=== PATIENT | male | born 1950 | race Caucasian/White ===

== ENCOUNTER 2016-07-28 18:59 | Inpatient (IN) | payer OTHER ==
[~2016-07-28] VITALS: Ht 167.6 cm; Wt 68.7 kg
[2016-07-28 20:26] LABS: BASO # 0.1 x10^3/uL (0.0-0.2); BASO % 0 % (0-3); EOS % 0 % (0-3); HEMATOCRIT 42.8 % (39.0-53.0); HEMOGLOBIN 13.6 g/dL (13.0-17.5); LYMPH # 0.7 x10^3/uL (1.0-4.8); LYMPH % 3 % (24-48); MEAN CORPUSCULAR HEMOGLOBIN 28 pg (25-35); MEAN CORPUSCULAR HGB CONC 32 g/dL (31-37); MEAN CORPUSCULAR VOLUME 88 fL (79-100); MONO % 10 % (0-9); NEUT % 87 % (31-73); PLATELET COUNT 134 x10^3/uL (140-400); RED BLOOD COUNT 4.84 x10^6/uL (4.30-5.70); RED CELL DISTRIBUTION WIDTH 15.1 % (11.5-14.5); WHITE BLOOD COUNT 21.5 x10^3/uL (4.0-11.0)
[2016-07-28 20:29] LABS: BILIRUBIN,URINE SMALL (NEG); GLUCOSE,URINE >=1000 mg/dL (NEG); NITRITE,URINE NEGATIVE (NEG); PROTEIN,URINE 30 mg/dL (NEG-TRACE); UROBILINOGEN,URINE 0.2 mg/dL (0.2 mg/dL)
[2016-07-28 20:35] LABS: BARBITURATES NEG (NEG); BENZODIAZEPINES NEG (NEG); CANNABINOIDS NEG (NEG); COCAINE NEG (NEG); METHADONE NEG (NEG); OPIATES POS (NEG); PHENCYCLIDINE NEG (NEG)
[2016-07-28 20:36] LABS: ETHANOL, URINE NEG (NEG)
[2016-07-28 20:40] LABS: BACTERIA,URINE 0 /HPF (0-FEW); RBC,URINE OCC /HPF (0-2); SQUAMOUS EPITHELIAL CELL,UR FEW /LPF; WBC,URINE OCC /HPF (0-4)
[2016-07-28 20:53] LABS: HYPOCHROMIA SLIGHT; OVALOCYTES OCC; PLT ESTIMATE DECREASED (ADEQUATE); POLYCHROMASIA SLIGHT
[2016-07-28] MEDS ORDERED: IV NORMAL SALINE 1000ML BAG 1,000 ML IV ONE (21:30)
[2016-07-28] MEDS ORDERED: NALOXONE 0.4 MG/ML VIAL. IV ONE (21:30)
[2016-07-28 21:47] LABS: CALCIUM 10.1 mg/dL (8.5-10.1); CREATININE 1.5 mg/dL (0.7-1.3); GFR 46.7; POTASSIUM 4.6 mmol/L (3.5-5.1)
--- NOTE | 2016-07-28 21:54 | PHYS DOC ---
Past Medical History Past Medical History: CAD, Diabetes-Type I, High Cholesterol, Heart Disease, Hypertension, Renal Disease Past Surgical History: Coronary Bypass Surgery Alcohol Use: None Drug Use: None Adult General Chief Complaint Chief Complaint: ALTERED MENTAL STATUS HPI HPI 77 yo male comes in acutely altered and unable to answer basic questions for the last several hours per his . Patient is awake and can follow basic commands. He does not appear in any acute distress. His pupils are pinpoint. He is afebrile but not able to provide any specific history. Review of Systems Review of Systems 10 point review of systems is unable to be obtained secondary to the patient's mental status Current Medications Current Medications Current Medications Medications (Trade) Dose Ordered Sig/Moses Start Time Stop Time Status Last Admin Dose Admin Naloxone HCl 0.4 mg 0.4 mg 1X ONCE 07/28/16 21:30 07/28/16 21:31 DC 07/28/16 21:30 0.4 MG Sodium Chloride (Iv Sodium Chloride 0.9% 1000ml Bag) 1,000 ml @ 1,000 mls/hr 1X ONCE 07/28/16 21:30 07/28/16 22:29 DC 07/28/16 21:30 1,000 MLS/HR Allergies Allergies Allergies Coded Allergies Type Severity Reaction Last Updated Verified No Known Drug Allergies 09/08/13 No Physical Exam Physical Exam Constitutional: Cachectic, no acute distress, . [] HENT: Normocephalic, atraumatic, bilateral external ears normal, oropharynx moist, no oral exudates, nose normal. [] Eyes: Pupils reactive and pinpoint, EOMI, conjunctiva normal, no discharge. [] Neck: Normal range of motion, no tenderness, supple, no stridor. [] Cardiovascular:Heart rate regular rhythm, no murmur [] Lungs & Thorax: Bilateral breath sounds clear to auscultation [] Abdomen: Bowel sounds normal, soft, no tenderness, no masses, no pulsatile masses. [] Skin: Warm, dry, no erythema, no rash. [] Back: No tenderness, no CVA tenderness. [] Extremities: No tenderness, no cyanosis, no clubbing, ROM intact, no edema. [] Neurologic: Normal motor function, normal sensory function, no focal deficits noted, GCS 13. [] Psychologic: Affect normal, judgement normal, mood normal. [] Current Patient Data Vital Signs Vital Signs Date Time Temp Pulse Resp B/P Pulse Ox O2 Delivery O2 Flow Rate FiO2 07/28/16 19:20 97.5 96 24 130/72 92 Room Air 97.5 Lab Values Laboratory Tests Test 07/28/16 19:30 07/28/16 21:24 White Blood Count 21.5x10^3/uL (4.0-11.0) H Red Blood Count 4.84x10^6/uL (4.30-5.70) Hemoglobin 13.6g/dL (13.0-17.5) Hematocrit 42.8% (39.0-53.0) Mean Corpuscular Volume 88fL (79-100) Mean Corpuscular Hemoglobin 28pg (25-35) Mean Corpuscular Hemoglobin Concent 32g/dL (31-37) Red Cell Distribution Width 15.1% (11.5-14.5) H Platelet Count 134x10^3/uL (140-400) L Neutrophils (%) (Auto) 87% (31-73) H Lymphocytes (%) (Auto) 3% (24-48) L Monocytes (%) (Auto) 10% (0-9) H Eosinophils (%) (Auto) 0% (0-3) Basophils (%) (Auto) 0% (0-3) Neutrophils # (Auto) 18.7x10^3uL (1.8-7.7) H Lymphocytes # (Auto) 0.7x10^3/uL (1.0-4.8) L Monocytes # (Auto) 2.1x10^3/uL (0.0-1.1) H Eosinophils # (Auto) 0.0x10^3/uL (0.0-0.7) Basophils # (Auto) 0.1x10^3/uL (0.0-0.2) Segmented Neutrophils % 88% (35-66) H Lymphocytes % 1% (24-48) L Monocytes % 11% (0-10) H Platelet Estimate Decreased (ADEQUATE) Giant Platelets Occ Polychromasia Slight Hypochromasia Slight Ovalocytes Occ Urine Collection Type Unknown Urine Color Yellow Urine Clarity Clear Urine pH 6.0 Urine Specific [place] >=1.030 Urine Protein 30mg/dL (NEG-TRACE) Urine Glucose (UA) >=1000mg/dL (NEG) Urine Ketones (Stick) 15mg/dL (NEG) Urine Blood Small (NEG) Urine Nitrite Negative (NEG) Urine Bilirubin Small (NEG) Urine Urobilinogen Dipstick 0.2mg/dL (0.2 mg/dL) Urine Leukocyte Esterase Negative (NEG) Urine RBC Occ/HPF (0-2) Urine WBC Occ/HPF (0-4) Urine Squamous Epithelial Cells Few/LPF Urine Bacteria 0/HPF (0-FEW) Urine Hyaline Casts Many/HPF Sodium Level 138mmol/L (136-145) Potassium Level 4.6mmol/L (3.5-5.1) Chloride Level 99mmol/L (98-107) Carbon Dioxide Level 25mmol/L (21-32) Anion Gap 14 (6-14) Blood Urea Nitrogen 41mg/dL (8-26) H Creatinine 1.5mg/dL (0.7-1.3) H Estimated GFR (Cockcroft-Gault) 46.7 BUN/Creatinine Ratio 27 (6-20) H Glucose Level 455mg/dL (70-99) H Calcium Level 10.1mg/dL (8.5-10.1) Total Bilirubin 1.0mg/dL (0.2-1.0) Aspartate Amino Transferase (AST) 1157U/L (15-37) H Alanine Aminotransferase (ALT) 2219U/L (16-63) H Alkaline Phosphatase 296U/L (46-116) H Troponin I Quantitative 1.239ng/mL (0.000-0.055) Total Protein 7.9g/dL (6.4-8.2) Albumin 2.4g/dL (3.4-5.0) L Albumin/Globulin Ratio 0.4 (1.0-1.7) L Urine Opiates Screen Pos (NEG) Urine Methadone Screen Neg (NEG) Urine Barbiturates Neg (NEG) Urine Phencyclidine Screen Neg (NEG) Urine Amphetamine/Methamphetamine Neg (NEG) Urine Benzodiazepines Screen Neg (NEG) Urine Cocaine Screen Neg (NEG) Urine Cannabinoids Screen Neg (NEG) Urine Ethyl Alcohol Neg (NEG) Lactic Acid Level 1.9mmol/L (0.4-2.0) Ammonia 11mcmol/L (11-34) Lipase 76U/L (73-393) Laboratory Tests 07/28/16 19:30 Laboratory Tests 07/28/16 19:30 EKG EKG EKG is internal by me does show some ST abnormalities in the high lateral leads V3 through V6 as well as 23 and aVF. This EKG does not meet STEMI criteria. Radiology/Procedures Radiology/Procedures CT the head without contrast demonstrated no acute intracranial process. CT of the abdomen and pelvis without contrast demonstrated the followin. No acute intra-abdominal or pelvic process seen on this noncontrast exam. 2. Wedge-shaped area of low attenuation suggested in the right lobe of the liver, incompletely evaluated although may represent a previous area of infarct. 3. Areas of low attenuation throughout the spleen, incompletely characterized, could represent areas of previous infarct, less likely cysts. 4. Diffuse atherosclerotic calcification of the abdominal aorta and its main branches. Course & Med Decision Making Course & Med Decision Making Pertinent Labs and Imaging studies reviewed. (See chart for details) This 66-year-old male presents with acute altered mental status has laboratory workup that is concerning for NSTEMI with a troponin of 1.2 as well as externally elevated liver function with a AST/ALT in the thousands. Lipase and ammonia were negative. His renal function reveals mild renal insufficiency consistent with dehydration. Patient was started on heparin protocol as his EKG does also shows some mild signs of ischemia with the elevated troponin level. I obtained a CT of his abdomen and pelvis as well which showed some wedge-shaped infarcts appeared nonacute in the liver. Doses of IV Rocephin and IV flagyl were also given as he has a elevated white count with his liver function abnormalities. His urinalysis and chest x-ray however appeared unremarkable. His elevated blood glucose trended down with fluids. He did not have an elevated bicarbonate and does not appear to be in DKA. He'll be admitted to the ICU for his continued laboratory abnormalities and altered mental status. His room air saturations are normal and he is in no acute respiratory distress and responds to painful stimulus and can follow basic commands so there is no indication at this time that he requires definitive airway placement. Approximately 30 minutes of critical care time were used on this patient in consultation with specialists. Dragon Disclaimer Dragon Disclaimer This electronic medical record was generated, in whole or in part, using a voice recognition dictation system. Critical Care Time Critical care time was 30 minutes exclusive of procedures. Departure Departure Impression: Primary Impression: Dehydration Additional Impressions: NSTEMI (non-ST elevated myocardial infarction) Altered mental status Disposition: 09 ADMITTED INPATIENT Admitting Physician: Rey Lind Condition: STABLE Referrals: UNKNOWN PCP NAME (PCP) Problem Qualifiers MARK BETH DO Jul 28, 2016 21:54
[2016-07-28] MEDS ORDERED: HEPARIN for IV BOLUS 10,000 UNIT/10 ML VIAL. IV PRN (22:00)
[2016-07-28] MEDS ORDERED: CEFTRIAXONE 1GM IVPB FOR OMNI 50 ML IV ONE (22:00)
[2016-07-28 22:01] LABS: ALBUMIN 2.4 g/dL (3.4-5.0); ALBUMIN/GLOBULIN RATIO 0.4 (1.0-1.7); TOTAL PROTEIN 7.9 g/dL (6.4-8.2)
--- NOTE | 2016-07-28 22:11 | RAD ---
INDICATION: Altered mental status. COMPARISON: None TECHNIQUE: Axial, noncontrast CT images obtained through the head. One or more of the following individualized dose reduction techniques were utilized for this examination: 1. Automated exposure control; 2. Adjustment of the mA and/or kV according to patient size; 3. Use of iterative reconstruction technique. FINDINGS: No acute intracranial process is identified, specifically no acute blood products, midline shift, mass effect or extra-axial fluid collections. Ventricles and sulci appear appropriate for patient's age. Basilar cisterns are maintained. The visualized paranasal sinuses are clear. Mastoid air cells are clear. No calvarial fracture is present. Overlying scalp is intact. IMPRESSION: No acute intracranial process. Electronically signed by: Ana Cristina Maldonado (Jul 28, 2016 22:09:44)
[2016-07-28] MEDS ORDERED: ONDANSETRON PF 4 MG/2 ML VIAL. IV PRN (22:15)
[2016-07-28] MEDS: METRONIDAZOLE 500mg PREMIX 100 ML IV SCH (23:02)
[2016-07-28] MEDS: IV NORMAL SALINE 1000ML BAG 1,000 ML IV SCH (23:11)
--- NOTE | 2016-07-28 23:16 | RAD ---
INDICATION: 66-year-old male with generalized abdominal pain. COMPARISON: None TECHNIQUE: Axial CT images obtained through the abdomen and pelvis without the use of intravenous contrast. Coronal and sagittal reformats are provided. One or more of the following individualized dose reduction techniques were utilized for this examination: 1. Automated exposure control; 2. Adjustment of the mA and/or kV according to patient size; 3. Use of iterative reconstruction technique. FINDINGS: Visualized lung bases appear clear. Detailed evaluation of intra-abdominal and pelvic organs and vascular structures is limited secondary to lack of IV contrast. There is suggestion of a wedge-shaped area of low attenuation involving the right lobe of the liver. Otherwise, the liver demonstrates normal contour. There are areas of low attenuation present throughout the spleen. The gallbladder, pancreas, adrenal glands and bilateral kidneys demonstrate no focal abnormality. The GI tract demonstrates no dilated bowel loops to suggest obstruction. A 1.6 cm calcification is present within the urinary bladder just superior to the left UVJ, well-marginated. No hydronephrosis or hydroureter ureter present. Prostatic calcifications are present. No intra-abdominal or pelvic free fluid, free air or significant lymphadenopathy is seen. The aorta is normal in caliber, with diffuse atherosclerotic calcification present. Visualized osseous structures and overlying soft tissues demonstrate no acute or suspicious finding. Degenerative changes are present throughout the visualized spine. IMPRESSION: 1. No acute intra-abdominal or pelvic process seen on this noncontrast exam. 2. Wedge-shaped area of low attenuation suggested in the right lobe of the liver, incompletely evaluated although may represent a previous area of infarct. 3. Areas of low attenuation throughout the spleen, incompletely characterized, could represent areas of previous infarct, less likely cysts. 4. Diffuse atherosclerotic calcification of the abdominal aorta and its main branches. Electronically signed by: Ana Cristina Maldonado (Jul 28, 2016 23:15:27)
[2016-07-28] MEDS: HEPARIN 25,000UTS/500ML PREMIX 500 ML IV PRN (23:18)
--- NOTE | 2016-07-28 23:48 | ACF ---
Admission Forms Criteria MYOCARDIAL INFARCTION Clinical Indications for Admission to Inpatient Care (Place 'X' for any and all applicable criteria): Admission is indicated for ANY ONE of the following (1)(2)(3)(4): [X]I. Acute IA [ ]II. Contraindications and/or Inappropriate clinical situations for Observational Care in patients with Myocardial Infarction, when ANY ONE of the following is required: [ ]a) Patient with High risk of cardiac embolism (e.g, patients with previous cardiac embolism, LVEF < 40%, age >75 and patients with prosthetic valve) 18 [ ]b) Patient with Moderate risk including DM patient, CAD and patient aged 65-75 18 [ ]c) Patient with any change in cardiac biomarker especially troponin should be managed as high risk in an inpatient setting 19 [ ]d) Physician judgement irrespective of ECG and other diagnostic findings 20 [ ]III.General contraindications and/or Inappropriate clinical situations for Observational Care in patients with Myocardial Infarction, when ANY ONE of the following is required: [ ]a) Prediction of prolongation of LOS based on ANY ONE of the following may be considered as a contraindication for observational care 2, 3, 4, 5, 6, 7, 8, 9, 10, 11 [ ]i) Age > 65 yrs. [ ]ii) Patient arriving by ambulance [ ]iii) Patient with high acuity [ ]iv) Patient requiring vital sign monitoring [ ]v) Patient on IV medication [ ]b) Systolic blood pressures 180mmHg 3,12 [ ]c) Patient with altered mental status including delirium and other alteration of consciousness, (3) [ ]d) Patient whose discharge disposition will be to a nursing home home or rehabilitation home should not be managed in Emergency Department Observation Unit. CMS rule requires 3 days hospital stay before such placement. 3,13 [ ]e) Patient with failure to thrive due to broad array of etiologies 3 ,16,17 [ ]f) Inability to ambulate 3,14 Extended stay beyond goal length of stay may be needed for (1)(18)(20)(24)(25): [ ]a) Hemodynamic instability, persisting symptoms after intensive medical management, or recurring severe, prolonged symptoms [ ]b) Intravascular procedural complications such as acute vessel closure, stent thrombosis, stent malposition, or vessel dissection (26)(27)(28) [ ]c) Extravascular procedural complications such as retroperitoneal hematoma , pericardial effusion, or cardiac tamponade [ ]d) Entry site complications causing bleeding, hematoma or distal ischemia and requiring ongoing monitoring, surgical repair or surgical thrombectomy(29) [ ]e) Dangerous arrhythmia [ ]f) Complicated percutaneous coronary intervention (e.g., unsuccessful percutaneous coronary intervention or percutaneous coronary intervention of non- [place] vessel) [ ]g) Urgent or emergent surgery for complications of IA (e.g., ventricular rupture, valvular insufficiency) [ ]h) Surgical revascularization via coronary artery bypass graft [ ]i) Heart failure (e.g., pulmonary edema) [ ]j) Unstable pulmonary comorbidities, including COPD or pneumonia (31) [ ]k) Acute renal failure The original [employer] content created by [employer] has been revised. The portions of the content which have been revised are identified through the use of italic text or in bold, and [facility] [employer] has neither reviewed nor approved the modified material. All other unmodified content is copyright [facility] [employer] Please see references footnoted in the original [facility] edition 2016 Admission Criteria Met?: Yes NEY PRICE Jul 28, 2016 23:48
[2016-07-29] VITALS (24 sets, daily range): BP systolic 116–169; BP diastolic 55–83
[2016-07-29] MEDS ORDERED: hydrALAZINE 20 MG/ML VIAL. IVP PRN (03:00)
[2016-07-29] MEDS ORDERED: HYDR-2666 PO (03:33)
[2016-07-29 04:44] LABS: BASO % 0 % (0-3); EOS % 0 % (0-3); HEMATOCRIT 39.4 % (39.0-53.0); HEMOGLOBIN 12.7 g/dL (13.0-17.5); LYMPH # 0.8 x10^3/uL (1.0-4.8); LYMPH % 4 % (24-48); MEAN CORPUSCULAR HEMOGLOBIN 28 pg (25-35); MEAN CORPUSCULAR HGB CONC 32 g/dL (31-37); MEAN CORPUSCULAR VOLUME 88 fL (79-100); MONO % 10 % (0-9); NEUT % 86 % (31-73); PLATELET COUNT 113 x10^3/uL (140-400); RED BLOOD COUNT 4.48 x10^6/uL (4.30-5.70); RED CELL DISTRIBUTION WIDTH 15.1 % (11.5-14.5); WHITE BLOOD COUNT 21.1 x10^3/uL (4.0-11.0)
[2016-07-29 04:56] LABS: CREATININE 1.3 mg/dL (0.7-1.3); GFR 55.1; POTASSIUM 4.6 mmol/L (3.5-5.1)
--- NOTE | 2016-07-29 06:36 | EKG ---
[facility] [address] [place] [address] Test Date: 2016-07-28 Test Time: 21:19:32 Pat Name: ANA WOLF Department: Room: Gender: M Hospital Director: : 1950 Requested By: MARK BETH Order Number: [id number] Reading MD: Measurements Intervals [place] Rate: 91 P: 90 RI: 116 QRS: 85 QRSD: 106 T: -101 QT: 362 QTc: 447 Interpretive Statements SINUS RHYTHM QRS(T) CONTOUR ABNORMALITY CONSISTENT WITH INFERIOR INFARCT AGE UNDETERMINED ST & T ABNORMALITY, CONSIDER ANTERIOR ISCHEMIA OR LEFT VENTRICULAR STRAIN RI6.01 Unconfirmed report No previous ECG available for comparison
--- NOTE | 2016-07-29 07:50 | RAD ---
EXAM: Chest one view. HISTORY: Altered mental status. COMPARISON: None. FINDINGS: A frontal view of the chest is obtained. There are changes of coronary artery bypass grafting. Left atrial enlargement is suspected. There are no confluent infiltrates. There is no pneumothorax or pleural effusion. The heart is not enlarged. There are atherosclerotic calcifications of the aorta. IMPRESSION: 1. Suspect left atrial enlargement.
[2016-07-29] MEDS: INSULIN ASPART 300 UNITS/3 ML INSULN.PEN SQ SCH ×4 (08:00→17:00)
[2016-07-29] MEDS: IV NORMAL SALINE 1000ML BAG 1,000 ML IV SCH (08:16)
[2016-07-29] MEDS ORDERED: INSULIN ASPART 300 UNITS/3 ML INSULN.PEN SQ ONE (08:30)
--- NOTE | 2016-07-29 09:13 | PDOC1 ---
History and Physical Date of Admission Date of Admission DATE: 07/29/16 TIME: 09:08 Identification/Chief Complaint Chief Complaint confusion, lethargy Source Source: Chart review History of Present Illness History of Present Illness 66 yo DM1 male, admitted for confusion and lethargy. opiate pos urine, given narcan last night, seems better this AM than ER report, answering some questions, responds that he is in pain, but non- specific. blood sugar high this AM troponin elevation, CV consulted, pt NPO for possible cardiac cath Past Medical History Cardiovascular: HTN Hepatobiliary: No pertinent hx Psych: No pertinent hx Rheumatologic: No pertinent hx Infectious disease: No pertinent hx Endocrine: Diabetes Past Surgical History Past Surgical History: No pertinent history Family History Family History he reported to me that he smokes, but I am unsure Social History ALCOHOL: rare Drugs: None Current Problem List Problem List Problems Medical Problems: (1) Altered mental status Status: Acute (2) Dehydration Status: Acute (3) NSTEMI (non-ST elevated myocardial infarction) Status: Acute Problems: Current Medications Current Medications Current Medications Naloxone HCl 0.4 mg 0.4 mg 1X ONCE IV Last administered on 07/28/16 21:30; Start 07/28/16 at 21:30; Stop 07/28/16 at 21:31; Status DC Sodium Chloride 1,000 ml @ 1,000 mls/hr 1X ONCE IV Last administered on 21:30; Start 07/28/16 at 21:30; Stop 07/28/16 at 22:29; Status DC Ceftriaxone Sodium 1 gm/ Sodium Chloride 50 ml @ 100 mls/hr Q24H IV ; Start 07/29/16 at 21:00 Ceftriaxone Sodium 50 ml @ 100 mls/hr 1X ONCE IV Last administered on 21:35; Start 07/28/16 at 22:00; Stop 07/28/16 at 22:29; Status DC Heparin Sodium/ Dextrose 500 ml @ 0 mls/hr CONT PRN IV SEE I/O RECORD Last administered on 07/28/16 23:18; Start 07/28/16 at 22:00 Heparin Sodium (Porcine) 2,200 unit PRN Q6HRS PRN IV FOR UFH LEVEL LESS THAN 0.2 Last administered on 07/28/16 23:14; Start 07/28/16 at 22:00 Ondansetron HCl 4 mg 4 mg PRN Q8HRS PRN IV NAUSEA/VOMITING; Start 07/28/16 at 22 :15; Stop 07/29/16 at 22:14 Sodium Chloride 1,000 ml @ 125 mls/hr Q8H IV Last administered on 07/29/16 08: 16; Start 07/28/16 at 22:01; Stop 07/29/16 at 22:00 Metronidazole (FLAGYL 500Mmg PREMIX) 100 ml @ 100 mls/hr Q12HR IV Last administered on 07/28/16 23:02; Start 07/28/16 at 22:30 Hydralazine HCl (Apresoline) 10 mg PRN Q4HRS PRN IVP ELEVATED BP, SEE COMMENTS ; Start 07/29/16 at 03:00 Insulin Aspart (Novolog) 0-9 UNITS TIDWMEALS SQ ; Start 07/29/16 at 08:00 Dextrose 12.5 gm PRN Q15MIN PRN IV SEE COMMENTS; Start 07/29/16 at 03:00 Insulin Aspart (Novolog) 8 units 1X ONCE SQ Last administered on 07/29/16 08: 20; Start 07/29/16 at 08:30; Stop 07/29/16 at 08:31; Status DC Morphine Sulfate 2 mg PRN Q2HR PRN IV PAIN; Start 07/29/16 at 09:00 Active Scripts Active Reported Hydrocodone-Apap 5-325 (Hydrocodone Bit/Acetaminophen) 1 Each Tablet 1 Tab PO Q4HRS PRN Allergies Allergies: Coded Allergies: No Known Drug Allergies (Unverified , 09/08/13) ROS Review of System unable to fully complete, lethargic, not verbally coherent Physical Exam General: Alert, Cooperative, mild distress, Other (not oriented, confusing responses) HEENT: Atraumatic, PERRLA, Other (dry) Lungs: Clear to auscultation, Normal air movement Heart: no murmurs Abdomen: Normal bowel sounds, Soft Extremities: No cyanosis, No edema Skin: No rashes, No significant lesion Neuro: Other (slurred speech) Psych/Mental Status: Other Vitals Vitals Vital Signs Date Time Temp Pulse Resp B/P Pulse Ox O2 Delivery O2 Flow Rate FiO2 07/29/16 06:00 83 18 157/81 93 Room Air 07/29/16 04:00 21.0 07/29/16 04:00 98.4 98.4 Labs Labs Laboratory Tests Test 07/28/16 19:30 07/28/16 21:24 07/29/16 00:08 07/29/16 04:20 White Blood Count 21.5x10^3/uL (4.0-11.0) 21.1x10^3/uL (4.0-11.0) Red Blood Count 4.84x10^6/uL (4.30-5.70) 4.48x10^6/uL (4.30-5.70) Hemoglobin 13.6g/dL (13.0-17.5) 12.7g/dL (13.0-17.5) Hematocrit 42.8% (39.0-53.0) 39.4% (39.0-53.0) Mean Corpuscular Volume 88fL (79-100) 88fL (79-100) Mean Corpuscular Hemoglobin 28pg (25-35) 28pg (25-35) Mean Corpuscular Hemoglobin Concent 32g/dL (31-37) 32g/dL (31-37) Red Cell Distribution Width 15.1% (11.5-14.5) 15.1% (11.5-14.5) Platelet Count 134x10^3/uL (140-400) 113x10^3/uL (140-400) Neutrophils (%) (Auto) 87% (31-73) 86% (31-73) Lymphocytes (%) (Auto) 3% (24-48) 4% (24-48) Monocytes (%) (Auto) 10% (0-9) 10% (0-9) Eosinophils (%) (Auto) 0% (0-3) 0% (0-3) Basophils (%) (Auto) 0% (0-3) 0% (0-3) Neutrophils # (Auto) 18.7x10^3uL (1.8-7.7) 18.2x10^3uL (1.8-7.7) Lymphocytes # (Auto) 0.7x10^3/uL (1.0-4.8) 0.8x10^3/uL (1.0-4.8) Monocytes # (Auto) 2.1x10^3/uL (0.0-1.1) 2.0x10^3/uL (0.0-1.1) Eosinophils # (Auto) 0.0x10^3/uL (0.0-0.7) 0.0x10^3/uL (0.0-0.7) Basophils # (Auto) 0.1x10^3/uL (0.0-0.2) 0.0x10^3/uL (0.0-0.2) Segmented Neutrophils % 88% (35-66) Lymphocytes % 1% (24-48) Monocytes % 11% (0-10) Platelet Estimate Decreased (ADEQUATE) Giant Platelets Occ Polychromasia Slight Hypochromasia Slight Ovalocytes Occ Urine Collection Type Unknown Urine Color Yellow Urine Clarity Clear Urine pH 6.0 Urine Specific [employer] >=1.030 Urine Protein 30mg/dL (NEG-TRACE) Urine Glucose (UA) >=1000mg/dL (NEG) Urine Ketones (Stick) 15mg/dL (NEG) Urine Blood Small (NEG) Urine Nitrite Negative (NEG) Urine Bilirubin Small (NEG) Urine Urobilinogen Dipstick 0.2mg/dL (0.2 mg/dL) Urine Leukocyte Esterase Negative (NEG) Urine RBC Occ/HPF (0-2) Urine WBC Occ/HPF (0-4) Urine Squamous Epithelial Cells Few/LPF Urine Bacteria 0/HPF (0-FEW) Urine Hyaline Casts Many/HPF Sodium Level 138mmol/L (136-145) 142mmol/L (136-145) Potassium Level 4.6mmol/L (3.5-5.1) 4.6mmol/L (3.5-5.1) Chloride Level 99mmol/L (98-107) 106mmol/L (98-107) Carbon Dioxide Level 25mmol/L (21-32) 23mmol/L (21-32) Anion Gap 14 (6-14) 13 (6-14) Blood Urea Nitrogen 41mg/dL (8-26) 36mg/dL (8-26) Creatinine 1.5mg/dL (0.7-1.3) 1.3mg/dL (0.7-1.3) Estimated GFR (Cockcroft-Gault) 46.7 55.1 BUN/Creatinine Ratio 27 (6-20) Glucose Level 455mg/dL (70-99) 370mg/dL (70-99) Calcium Level 10.1mg/dL (8.5-10.1) 9.0mg/dL (8.5-10.1) Total Bilirubin 1.0mg/dL (0.2-1.0) Aspartate Amino Transf (AST/SGOT) 1157U/L (15-37) Alanine Aminotransferase (ALT/SGPT) 2219U/L (16-63) Alkaline Phosphatase 296U/L (46-116) Troponin I Quantitative 1.239ng/mL (0.000-0.055) 1.124ng/mL (0.000-0.055) Total Protein 7.9g/dL (6.4-8.2) Albumin 2.4g/dL (3.4-5.0) Albumin/Globulin Ratio 0.4 (1.0-1.7) Urine Opiates Screen Pos (NEG) Urine Methadone Screen Neg (NEG) Urine Barbiturates Neg (NEG) Urine Phencyclidine Screen Neg (NEG) Urine Amphetamine/Methamphetamine Neg (NEG) Urine Benzodiazepines Screen Neg (NEG) Urine Cocaine Screen Neg (NEG) Urine Cannabinoids Screen Neg (NEG) Urine Ethyl Alcohol Neg (NEG) Lactic Acid Level 1.9mmol/L (0.4-2.0) Ammonia 11mcmol/L (11-34) Lipase 76U/L (73-393) Glucose (Fingerstick) 358mg/dL (70-99) Test 07/29/16 08:10 Heparin Anti-Xa Act, Unfractionated < 0.10IU/mL (0.30-0.70) Laboratory Tests Test 07/28/16 19:30 07/28/16 21:24 07/29/16 00:08 07/29/16 04:20 White Blood Count 21.5x10^3/uL (4.0-11.0) 21.1x10^3/uL (4.0-11.0) Red Blood Count 4.84x10^6/uL (4.30-5.70) 4.48x10^6/uL (4.30-5.70) Hemoglobin 13.6g/dL (13.0-17.5) 12.7g/dL (13.0-17.5) Hematocrit 42.8% (39.0-53.0) 39.4% (39.0-53.0) Mean Corpuscular Volume 88fL (79-100) 88fL (79-100) Mean Corpuscular Hemoglobin 28pg (25-35) 28pg (25-35) Mean Corpuscular Hemoglobin Concent 32g/dL (31-37) 32g/dL (31-37) Red Cell Distribution Width 15.1% (11.5-14.5) 15.1% (11.5-14.5) Platelet Count 134x10^3/uL (140-400) 113x10^3/uL (140-400) Neutrophils (%) (Auto) 87% (31-73) 86% (31-73) Lymphocytes (%) (Auto) 3% (24-48) 4% (24-48) Monocytes (%) (Auto) 10% (0-9) 10% (0-9) Eosinophils (%) (Auto) 0% (0-3) 0% (0-3) Basophils (%) (Auto) 0% (0-3) 0% (0-3) Neutrophils # (Auto) 18.7x10^3uL (1.8-7.7) 18.2x10^3uL (1.8-7.7) Lymphocytes # (Auto) 0.7x10^3/uL (1.0-4.8) 0.8x10^3/uL (1.0-4.8) Monocytes # (Auto) 2.1x10^3/uL (0.0-1.1) 2.0x10^3/uL (0.0-1.1) Eosinophils # (Auto) 0.0x10^3/uL (0.0-0.7) 0.0x10^3/uL (0.0-0.7) Basophils # (Auto) 0.1x10^3/uL (0.0-0.2) 0.0x10^3/uL (0.0-0.2) Segmented Neutrophils % 88% (35-66) Lymphocytes % 1% (24-48) Monocytes % 11% (0-10) Platelet Estimate Decreased (ADEQUATE) Giant Platelets Occ Polychromasia Slight Hypochromasia Slight Ovalocytes Occ Urine Collection Type Unknown Urine Color Yellow Urine Clarity Clear Urine pH 6.0 Urine Specific [employer] >=1.030 Urine Protein 30mg/dL (NEG-TRACE) Urine Glucose (UA) >=1000mg/dL (NEG) Urine Ketones (Stick) 15mg/dL (NEG) Urine Blood Small (NEG) Urine Nitrite Negative (NEG) Urine Bilirubin Small (NEG) Urine Urobilinogen Dipstick 0.2mg/dL (0.2 mg/dL) Urine Leukocyte Esterase Negative (NEG) Urine RBC Occ/HPF (0-2) Urine WBC Occ/HPF (0-4) Urine Squamous Epithelial Cells Few/LPF Urine Bacteria 0/HPF (0-FEW) Urine Hyaline Casts Many/HPF Sodium Level 138mmol/L (136-145) 142mmol/L (136-145) Potassium Level 4.6mmol/L (3.5-5.1) 4.6mmol/L (3.5-5.1) Chloride Level 99mmol/L (98-107) 106mmol/L (98-107) Carbon Dioxide Level 25mmol/L (21-32) 23mmol/L (21-32) Anion Gap 14 (6-14) 13 (6-14) Blood Urea Nitrogen 41mg/dL (8-26) 36mg/dL (8-26) Creatinine 1.5mg/dL (0.7-1.3) 1.3mg/dL (0.7-1.3) Estimated GFR (Cockcroft-Gault) 46.7 55.1 BUN/Creatinine Ratio 27 (6-20) Glucose Level 455mg/dL (70-99) 370mg/dL (70-99) Calcium Level 10.1mg/dL (8.5-10.1) 9.0mg/dL (8.5-10.1) Total Bilirubin 1.0mg/dL (0.2-1.0) Aspartate Amino Transf (AST/SGOT) 1157U/L (15-37) Alanine Aminotransferase (ALT/SGPT) 2219U/L (16-63) Alkaline Phosphatase 296U/L (46-116) Troponin I Quantitative 1.239ng/mL (0.000-0.055) 1.124ng/mL (0.000-0.055) Total Protein 7.9g/dL (6.4-8.2) Albumin 2.4g/dL (3.4-5.0) Albumin/Globulin Ratio 0.4 (1.0-1.7) Urine Opiates Screen Pos (NEG) Urine Methadone Screen Neg (NEG) Urine Barbiturates Neg (NEG) Urine Phencyclidine Screen Neg (NEG) Urine Amphetamine/Methamphetamine Neg (NEG) Urine Benzodiazepines Screen Neg (NEG) Urine Cocaine Screen Neg (NEG) Urine Cannabinoids Screen Neg (NEG) Urine Ethyl Alcohol Neg (NEG) Lactic Acid Level 1.9mmol/L (0.4-2.0) Ammonia 11mcmol/L (11-34) Lipase 76U/L (73-393) Glucose (Fingerstick) 358mg/dL (70-99) Test 07/29/16 08:10 Heparin Anti-Xa Act, Unfractionated < 0.10IU/mL (0.30-0.70) VTE Prophylaxis Ordered VTE Prophylaxis Devices: Yes VTE Pharmacological Prophylaxi: Yes Assessment/Plan Assessment/Plan Dm1, poor control acute metabolic encephalopathy, opiate use, ongoing pain, but confusion NSTEMI, trend trop, check lipids in AM DM1, SSI, recheck in an hour vasomotor nephropathy, appears dry, IV fluid admit to ICU SRAVAN ROMANO MD Jul 29, 2016 09:13
--- NOTE | 2016-07-29 09:51 | PDOC2 ---
CARDIAC CONSULT DATE OF CONSULT Date of Consult DATE: 07/29/16 TIME: 09:34 REASON FOR CONSULT Reason for Consult: NSTEMI REFERRING PHYSICIAN Referring Physician: Hoa SOURCE Source: Chart review HISTORY OF PRESENT ILLNESS HISTORY OF PRESENT ILLNESS This is a confuse 66 yo male admitted for noted altered mental status. Staff has informed me that his possible /girlfriend may have called EMS as she noted him to be confused but staff has been able to contact her to obtain consents and ask for further details leading up to his admission. Pt remains confused and restless. Upon admission he was noted to have pinpoint pupils and noted to be taking lortab. Narcan was given in ED. No noted respiratory distress and no notable complains of chest pain. There was no indication if pt was on floor or any or any falls. Pt does have hx of CAD and CABG in the past. Currently unable to decipher his medical history particularly cardiac. Multiple acute concurrent conditions noted upon his admission including severe transaminitis, leukocytosis, and uncontrolled DM. PAST MEDICAL HISTORY Cardiovascular: CAD, HTN, Hyperlipidemia Renal/: Chronic renal insuff Endocrine: Diabetes (type 1) PAST SURGICAL HISTORY Past Surgical History: CABG FAMILY HISTORY Family History: Diabetes, Hypertension SOCIAL HISTORY Smoke: No (?p[revious smoker) Lives: Alone (?) CURRENT MEDICATIONS CURRENT MEDICATIONS Current Medications Medications (Trade) Dose Ordered Sig/Moses Route PRN Reason Start Time Stop Time Status Last Admin Dose Admin Naloxone HCl 0.4 mg 0.4 mg 1X ONCE IV 07/28/16 21:30 07/28/16 21:31 DC 07/28/16 21:30 Sodium Chloride 1,000 ml @ 1,000 mls/hr 1X ONCE IV 07/28/16 21:30 07/28/16 22:29 DC 07/28/16 21:30 Ceftriaxone Sodium 50 ml @ 100 mls/hr 1X ONCE IV 07/28/16 22:00 07/28/16 22:29 DC 07/28/16 21:35 Heparin Sodium/ Dextrose 500 ml @ 0 mls/hr CONT PRN IV SEE I/O RECORD 07/28/16 22:00 07/28/16 23:18 Heparin Sodium (Porcine) 2200 unit 2,200 unit PRN Q6HRS PRN IV FOR UFH LEVEL LESS THAN 0.2 07/28/16 22:00 07/28/16 23:14 Sodium Chloride 1,000 ml @ 125 mls/hr Q8H IV 07/28/16 22:01 07/29/16 22:00 07/29/16 08:16 Metronidazole (FLAGYL 500Mmg PREMIX) 100 ml @ 100 mls/hr Q12HR IV 07/28/16 22:30 07/28/16 23:02 Insulin Aspart (Novolog) 8 units 1X ONCE SQ 07/29/16 08:30 07/29/16 08:31 DC 07/29/16 08:20 ALLERGIES ALLERGIES: Coded Allergies: No Known Drug Allergies (Unverified , 09/08/13) ROS Review of System unreliable; confuse PHYSICAL EXAM General: Other (confuse) HEENT: Atraumatic Lungs: Other (faint basilar crackles) Heart: Regular rate, Normal S1, Normal S2, Other (2/6 systolic murmur to LLS border) Abdomen: Soft, No tenderness Extremities: No cyanosis, No edema Skin: No breakdown, Other (white scaly skin to bilateral feet) Neuro: Sensation intact, Other (nonverbal) Psych/Mental Status: Other (restless) MUSCULOSKELETAL: Osteoarthritic changes both hands VITALS VITALS Vital Signs Date Time Temp Pulse Resp B/P Pulse Ox O2 Delivery O2 Flow Rate FiO2 07/29/16 06:00 83 18 157/81 93 Room Air 07/29/16 04:00 21.0 07/29/16 04:00 98.4 98.4 LABS Lab: Laboratory Tests Test 07/28/16 19:30 07/28/16 21:24 07/29/16 00:08 07/29/16 04:20 White Blood Count 21.5x10^3/uL (4.0-11.0) 21.1x10^3/uL (4.0-11.0) Red Blood Count 4.84x10^6/uL (4.30-5.70) 4.48x10^6/uL (4.30-5.70) Hemoglobin 13.6g/dL (13.0-17.5) 12.7g/dL (13.0-17.5) Hematocrit 42.8% (39.0-53.0) 39.4% (39.0-53.0) Mean Corpuscular Volume 88fL (79-100) 88fL (79-100) Mean Corpuscular Hemoglobin 28pg (25-35) 28pg (25-35) Mean Corpuscular Hemoglobin Concent 32g/dL (31-37) 32g/dL (31-37) Red Cell Distribution Width 15.1% (11.5-14.5) 15.1% (11.5-14.5) Platelet Count 134x10^3/uL (140-400) 113x10^3/uL (140-400) Neutrophils (%) (Auto) 87% (31-73) 86% (31-73) Lymphocytes (%) (Auto) 3% (24-48) 4% (24-48) Monocytes (%) (Auto) 10% (0-9) 10% (0-9) Eosinophils (%) (Auto) 0% (0-3) 0% (0-3) Basophils (%) (Auto) 0% (0-3) 0% (0-3) Neutrophils # (Auto) 18.7x10^3uL (1.8-7.7) 18.2x10^3uL (1.8-7.7) Lymphocytes # (Auto) 0.7x10^3/uL (1.0-4.8) 0.8x10^3/uL (1.0-4.8) Monocytes # (Auto) 2.1x10^3/uL (0.0-1.1) 2.0x10^3/uL (0.0-1.1) Eosinophils # (Auto) 0.0x10^3/uL (0.0-0.7) 0.0x10^3/uL (0.0-0.7) Basophils # (Auto) 0.1x10^3/uL (0.0-0.2) 0.0x10^3/uL (0.0-0.2) Segmented Neutrophils % 88% (35-66) Lymphocytes % 1% (24-48) Monocytes % 11% (0-10) Platelet Estimate Decreased (ADEQUATE) Giant Platelets Occ Polychromasia Slight Hypochromasia Slight Ovalocytes Occ Urine Collection Type Unknown Urine Color Yellow Urine Clarity Clear Urine pH 6.0 Urine Specific [place] >=1.030 Urine Protein 30mg/dL (NEG-TRACE) Urine Glucose (UA) >=1000mg/dL (NEG) Urine Ketones (Stick) 15mg/dL (NEG) Urine Blood Small (NEG) Urine Nitrite Negative (NEG) Urine Bilirubin Small (NEG) Urine Urobilinogen Dipstick 0.2mg/dL (0.2 mg/dL) Urine Leukocyte Esterase Negative (NEG) Urine RBC Occ/HPF (0-2) Urine WBC Occ/HPF (0-4) Urine Squamous Epithelial Cells Few/LPF Urine Bacteria 0/HPF (0-FEW) Urine Hyaline Casts Many/HPF Sodium Level 138mmol/L (136-145) 142mmol/L (136-145) Potassium Level 4.6mmol/L (3.5-5.1) 4.6mmol/L (3.5-5.1) Chloride Level 99mmol/L (98-107) 106mmol/L (98-107) Carbon Dioxide Level 25mmol/L (21-32) 23mmol/L (21-32) Anion Gap 14 (6-14) 13 (6-14) Blood Urea Nitrogen 41mg/dL (8-26) 36mg/dL (8-26) Creatinine 1.5mg/dL (0.7-1.3) 1.3mg/dL (0.7-1.3) Estimated GFR (Cockcroft-Gault) 46.7 55.1 BUN/Creatinine Ratio 27 (6-20) Glucose Level 455mg/dL (70-99) 370mg/dL (70-99) Calcium Level 10.1mg/dL (8.5-10.1) 9.0mg/dL (8.5-10.1) Total Bilirubin 1.0mg/dL (0.2-1.0) Aspartate Amino Transf (AST/SGOT) 1157U/L (15-37) Alanine Aminotransferase (ALT/SGPT) 2219U/L (16-63) Alkaline Phosphatase 296U/L (46-116) Troponin I Quantitative 1.239ng/mL (0.000-0.055) 1.124ng/mL (0.000-0.055) Total Protein 7.9g/dL (6.4-8.2) Albumin 2.4g/dL (3.4-5.0) Albumin/Globulin Ratio 0.4 (1.0-1.7) Urine Opiates Screen Pos (NEG) Urine Methadone Screen Neg (NEG) Urine Barbiturates Neg (NEG) Urine Phencyclidine Screen Neg (NEG) Urine Amphetamine/Methamphetamine Neg (NEG) Urine Benzodiazepines Screen Neg (NEG) Urine Cocaine Screen Neg (NEG) Urine Cannabinoids Screen Neg (NEG) Urine Ethyl Alcohol Neg (NEG) Lactic Acid Level 1.9mmol/L (0.4-2.0) Ammonia 11mcmol/L (11-34) Lipase 76U/L (73-393) Glucose (Fingerstick) 358mg/dL (70-99) Test 07/29/16 08:10 07/29/16 09:31 Heparin Anti-Xa Act, Unfractionated < 0.10IU/mL (0.30-0.70) Glucose (Fingerstick) 278mg/dL (70-99) ASSESSMENT/PLAN ASSESSMENT/PLAN 1. Metabolic encephalopathy: opioid induced? with associated dehydration/ hyperglycemia 2. Severe transaminitis: liver toxicity with tylenol/opioidl?, shock liver? 3. NSTEMI: peaked at 1.23. EKG SR with diffuse nonspecific ST-T wave changes and notable for inferior DE. No cardiac symptoms detailed prior to admission 4. CAD: CABG in the past 5. Leukocytosis 6. HTN: labile 7. HLP 8. DM1: uncontrolled. BG initially at 455. 9. RODRIGO on CKD: suspect baseline of CKD3: likely from volume depletion with significant hyperglycemia 10. PAD 11. Suspecting poor compliance Recommendations 1. Rectal ASA. Continue with heparin drip. 2. Obtain serum tylenol. TSH, lipid panel, Mg 3. TTE today. 4. Difficulty obtaining any records as nobody available to sign consents and family member could not be contacted. 5. Recommend GI consult 6. Bedside doppler to left foot (cool to touch). Arterial duplex study to bilateral LE 7. Will obtain CABG report and will try to notify family again to obtain procedure consent 8. Pending above testings and cardiac history clarification and BG/renal optimization will tentatively consider for ischemic workup tomorrow likely [facility]. 9. Continue with secondary prevention Problems: NASEEM WILSON APRN Jul 29, 2016 09:51
[2016-07-29] MEDS ORDERED: HEPARIN for IV BOLUS 10,000 UNIT/10 ML VIAL. IV PRN (10:15)
[2016-07-29] MEDS: METRONIDAZOLE 500mg PREMIX 100 ML IV SCH ×2 (10:25→22:00)
[2016-07-29] MEDS ORDERED: ASPIRIN 300 MG SUPP.RECT PR ONE (10:30)
[2016-07-29 10:44] LABS: INR 1.5 (0.8-1.1); PROTHROMBIN TIME PATIENT 17.3 SEC (11.7-14.0)
[2016-07-29 13:05] LABS: CKMB INDEX 0.8 % (0-4); CKMB MASS 4.3 ng/mL (0.0-3.6)
[2016-07-29] MEDS: METOPROLOL TARTRATE 5 MG/5 ML VIAL. IVP SCH ×3 (13:18→23:40)
--- NOTE | 2016-07-29 13:25 | RAD ---
Bilateral lower extremity arterial duplex study 07/29/2016 Clinical history: Diminished pulses in the left foot with color changes involving the left leg/foot. Technique: Using a combination of real-time ultrasound imaging and color-flow and pulse Doppler imaging techniques, duplex evaluation of the major nodule structures of both lower extremities was performed. Multiple images were obtained. Findings: Extensive atherosclerotic plaque formation is seen involving the major arterial structures of both lower extremities. Biphasic arterial waveform is seen involving the right common femoral artery with a peak systolic velocity 163 cm/s. The right superficial femoral artery is predominantly monophasic. The peak systolic velocities taper normally. Monophasic arterial waveforms are seen involving the right popliteal, posterior tibial, peroneal, anterior tibial and dorsalis pedis arteries. No hemodynamically significant stenosis or area of occlusion is seen. The left common femoral artery is triphasic with a peak systolic velocity of 118 cm/s. The majority of the left superficial femoral artery is occluded. The left popliteal artery, left anterior tibial artery, left dorsalis pedis, left peroneal and left posterior tibial arteries are occluded.. Impression: Extensive atherosclerotic plaque formation is seen involving the major arterial structures of both lower extremities. The majority of the left superficial femoral artery is occluded as is the left popliteal artery and arterial structures of the left calf and foot. No hemodynamically significant stenosis or area of occlusion is seen involving the major arterial structures of the right lower extremity.
[2016-07-29] MEDS ORDERED: IV NORMAL SALINE 1000ML BAG 1,000 ML IV SCH (13:30)
[2016-07-29] MEDS ORDERED: SURGICEL FIBRILLAR 1X2 EACH. ONE (13:54)
[2016-07-29] MEDS ORDERED: GELATIN SPONGE SIZE 12-7MM SPONGE. ONE (13:54)
[2016-07-29] MEDS ORDERED: THROMBIN 20,000 UNIT SPRAY.SYRN KIT TP ONE (13:54)
[2016-07-29] MEDS ORDERED: GELATIN SPONGE SIZE 100. ONE (13:54)
[2016-07-29] MEDS ORDERED: IOHEXOL 300 MG/ML 50 ML VIAL. ONE (13:54)
[2016-07-29] MEDS ORDERED: PAPAVERINE 60 MG/2 ML VIAL FOR OR ONLY. ONE (13:54)
--- NOTE | 2016-07-29 13:54 | PDOC2 ---
GI CONSULT Reason For Consult: Transaminitis HPI: HPI: 66 y/o male admitted to ICU. Per staff/chart, girlfriend called EMS for confusion, but attempted contact w/ family/friends has been unsuccessful since admission. Difficulty obtaining PMH, etc. Noted to have pinpoint pupils in ER w/ h/o taking Lortab, given Narcan in ED. Labs: WBC 21.1, plt 113, INR 1.5, bili 1, AST 1157, ALT 2219, Alk Phos 296, elevated troponins and glucose, acetaminophen level normal. CT head unrevealing, CT A/P w/ possible infarct in right hepatic lobe and spleen, also note diffuse atherosclerotic calcification of abd aorta. Cardiology following for NSTEMI. GI consulted re: transaminitis. Noted to have cool LLE, arterial duplex just resulted w/ majority of left superficial femoral artery occluded along w/ the left popliteal artery and arterial structures of the left calf and foot. RN states going for thrombectomy within the hour. PMH: PMH: CAD, HTN, HLD, DM, chronic renal insufficiency, CABG ROS: Unobtainable. VItals: Vitals: Vital Signs Date Time Temp Pulse Resp B/P Pulse Ox O2 Delivery O2 Flow Rate FiO2 07/29/16 13:18 79 154/76 07/29/16 12:00 Room Air 07/29/16 11:00 19 91 07/29/16 04:00 21.0 07/29/16 04:00 98.4 98.4 Labs: Labs: Laboratory Tests Test 07/28/16 19:30 07/28/16 21:24 07/29/16 00:08 07/29/16 04:20 White Blood Count 21.5x10^3/uL (4.0-11.0) 21.1x10^3/uL (4.0-11.0) Red Blood Count 4.84x10^6/uL (4.30-5.70) 4.48x10^6/uL (4.30-5.70) Hemoglobin 13.6g/dL (13.0-17.5) 12.7g/dL (13.0-17.5) Hematocrit 42.8% (39.0-53.0) 39.4% (39.0-53.0) Mean Corpuscular Volume 88fL (79-100) 88fL (79-100) Mean Corpuscular Hemoglobin 28pg (25-35) 28pg (25-35) Mean Corpuscular Hemoglobin Concent 32g/dL (31-37) 32g/dL (31-37) Red Cell Distribution Width 15.1% (11.5-14.5) 15.1% (11.5-14.5) Platelet Count 134x10^3/uL (140-400) 113x10^3/uL (140-400) Neutrophils (%) (Auto) 87% (31-73) 86% (31-73) Lymphocytes (%) (Auto) 3% (24-48) 4% (24-48) Monocytes (%) (Auto) 10% (0-9) 10% (0-9) Eosinophils (%) (Auto) 0% (0-3) 0% (0-3) Basophils (%) (Auto) 0% (0-3) 0% (0-3) Neutrophils # (Auto) 18.7x10^3uL (1.8-7.7) 18.2x10^3uL (1.8-7.7) Lymphocytes # (Auto) 0.7x10^3/uL (1.0-4.8) 0.8x10^3/uL (1.0-4.8) Monocytes # (Auto) 2.1x10^3/uL (0.0-1.1) 2.0x10^3/uL (0.0-1.1) Eosinophils # (Auto) 0.0x10^3/uL (0.0-0.7) 0.0x10^3/uL (0.0-0.7) Basophils # (Auto) 0.1x10^3/uL (0.0-0.2) 0.0x10^3/uL (0.0-0.2) Segmented Neutrophils % 88% (35-66) Lymphocytes % 1% (24-48) Monocytes % 11% (0-10) Platelet Estimate Decreased (ADEQUATE) Giant Platelets Occ Polychromasia Slight Hypochromasia Slight Ovalocytes Occ Urine Collection Type Unknown Urine Color Yellow Urine Clarity Clear Urine pH 6.0 Urine Specific [place] >=1.030 Urine Protein 30mg/dL (NEG-TRACE) Urine Glucose (UA) >=1000mg/dL (NEG) Urine Ketones (Stick) 15mg/dL (NEG) Urine Blood Small (NEG) Urine Nitrite Negative (NEG) Urine Bilirubin Small (NEG) Urine Urobilinogen Dipstick 0.2mg/dL (0.2 mg/dL) Urine Leukocyte Esterase Negative (NEG) Urine RBC Occ/HPF (0-2) Urine WBC Occ/HPF (0-4) Urine Squamous Epithelial Cells Few/LPF Urine Bacteria 0/HPF (0-FEW) Urine Hyaline Casts Many/HPF Sodium Level 138mmol/L (136-145) 142mmol/L (136-145) Potassium Level 4.6mmol/L (3.5-5.1) 4.6mmol/L (3.5-5.1) Chloride Level 99mmol/L (98-107) 106mmol/L (98-107) Carbon Dioxide Level 25mmol/L (21-32) 23mmol/L (21-32) Anion Gap 14 (6-14) 13 (6-14) Blood Urea Nitrogen 41mg/dL (8-26) 36mg/dL (8-26) Creatinine 1.5mg/dL (0.7-1.3) 1.3mg/dL (0.7-1.3) Estimated GFR (Cockcroft-Gault) 46.7 55.1 BUN/Creatinine Ratio 27 (6-20) Glucose Level 455mg/dL (70-99) 370mg/dL (70-99) Calcium Level 10.1mg/dL (8.5-10.1) 9.0mg/dL (8.5-10.1) Total Bilirubin 1.0mg/dL (0.2-1.0) Aspartate Amino Transf (AST/SGOT) 1157U/L (15-37) Alanine Aminotransferase (ALT/SGPT) 2219U/L (16-63) Alkaline Phosphatase 296U/L (46-116) Troponin I Quantitative 1.239ng/mL (0.000-0.055) 1.124ng/mL (0.000-0.055) Total Protein 7.9g/dL (6.4-8.2) Albumin 2.4g/dL (3.4-5.0) Albumin/Globulin Ratio 0.4 (1.0-1.7) Urine Opiates Screen Pos (NEG) Urine Methadone Screen Neg (NEG) Urine Barbiturates Neg (NEG) Urine Phencyclidine Screen Neg (NEG) Urine Amphetamine/Methamphetamine Neg (NEG) Urine Benzodiazepines Screen Neg (NEG) Urine Cocaine Screen Neg (NEG) Urine Cannabinoids Screen Neg (NEG) Urine Ethyl Alcohol Neg (NEG) Lactic Acid Level 1.9mmol/L (0.4-2.0) Ammonia 11mcmol/L (11-34) Lipase 76U/L (73-393) Glucose (Fingerstick) 358mg/dL (70-99) Thyroid Stimulating Hormone (TSH) 0.374uIU/mL (0.358-3.74) Test 07/29/16 05:10 07/29/16 08:10 07/29/16 09:31 07/29/16 12:10 Prothrombin Time 17.3SEC (11.7-14.0) Prothromb Time International Ratio 1.5 (0.8-1.1) Heparin Anti-Xa Act, Unfractionated < 0.10IU/mL (0.30-0.70) 0.27IU/mL (0.30-0.70) Magnesium Level 2.5mg/dL (1.8-2.4) Creatine Kinase 514U/L (39-308) Creatine Kinase MB (Mass) 4.3ng/mL (0.0-3.6) Creatine Kinase MB Relative Index 0.8% (0-4) Troponin I Quantitative 1.070ng/mL (0.000-0.055) Acetaminophen Level < 2mcg/ml (10-30) Acetaminophen Last Dose Date 3-6 Acetaminophen Last Dose Time 0900 Glucose (Fingerstick) 278mg/dL (70-99) Test 07/29/16 12:12 Glucose (Fingerstick) 228mg/dL (70-99) Allergies: Coded Allergies: No Known Drug Allergies (Unverified , 09/08/13) Medications: Current Medications Medications (Trade) Dose Ordered Sig/Moses Route PRN Reason Start Time Stop Time Status Last Admin Dose Admin Naloxone HCl 0.4 mg 0.4 mg 1X ONCE IV 07/28/16 21:30 07/28/16 21:31 DC 07/28/16 21:30 Sodium Chloride 1,000 ml @ 1,000 mls/hr 1X ONCE IV 07/28/16 21:30 07/28/16 22:29 DC 07/28/16 21:30 Ceftriaxone Sodium 50 ml @ 100 mls/hr 1X ONCE IV 07/28/16 22:00 07/28/16 22:29 DC 07/28/16 21:35 Heparin Sodium/ Dextrose 500 ml @ 0 mls/hr CONT PRN IV SEE I/O RECORD 07/28/16 22:00 07/28/16 23:18 Heparin Sodium (Porcine) 2200 unit 2,200 unit PRN Q6HRS PRN IV FOR UFH LEVEL LESS THAN 0.2 07/28/16 22:00 07/28/16 23:14 Sodium Chloride 1,000 ml @ 125 mls/hr Q8H IV 07/28/16 22:01 07/29/16 13:04 DC 07/29/16 08:16 Metronidazole (FLAGYL 500Mmg PREMIX) 100 ml @ 100 mls/hr Q12HR IV 07/28/16 22:30 07/29/16 10:25 Insulin Aspart (Novolog) 0-9 UNITS TIDWMEALS SQ 07/29/16 08:00 07/29/16 13:22 Insulin Aspart (Novolog) 8 units 1X ONCE SQ 07/29/16 08:30 07/29/16 08:31 DC 07/29/16 08:20 Aspirin (Aspirin) 300 mg 1X ONCE ID 07/29/16 10:30 07/29/16 10:31 DC 07/29/16 13:17 Heparin Sodium (Porcine) 1,800 unit PRN Q6HRS PRN IV FOR UFH LEVEL LESS THAN 0.2 07/29/16 10:15 07/29/16 10:35 Metoprolol Tartrate 5 mg 5 mg Q6HRS IVP 07/29/16 13:00 07/29/16 13:18 Sodium Chloride (Iv Sodium Chloride 0.9% 1000ml Bag) 1,000 ml @ 60 mls/hr [id number] IV 07/29/16 13:30 07/29/16 13:31 07/29/16 13:25 Imaging: Imaging: Head CT IMPRESSION: No acute intracranial process. CXR IMPRESSION: 1. Suspect left atrial enlargement. CT A/P w/o contrast IMPRESSION: 1. No acute intra-abdominal or pelvic process seen on this noncontrast exam. 2. Wedge-shaped area of low attenuation suggested in the right lobe of the liver , incompletely evaluated although may represent a previous area of infarct. 3. Areas of low attenuation throughout the spleen, incompletely characterized, could represent areas of previous infarct, less likely cysts. 4. Diffuse atherosclerotic calcification of the abdominal aorta and its main branches. Bilateral LE arterial duplex Impression: Extensive atherosclerotic plaque formation is seen involving the major arterial structures of both lower extremities. The majority of the left superficial femoral artery is occluded as is the left popliteal artery and arterial structures of the left calf and foot. No hemodynamically significant stenosis or area of occlusion is seen involving the major arterial structures of the right lower extremity. PE: GEN: NAD HEENT: atraumatic LUNGS: clear anteriorly HEART: RRR +murm ABD: BS quiet, S/ND/NT EXTREMITY: right w/ great toe amputation w/ dry/scaly skin, LLE in boot but cool to touch w/ purple discoloration SKIN: no jaundice NEURO/PSYCH: opens eyes occasionally A/P: A/P: Transaminitis, abnormal CT A/P -bili 1, AST 1157, ALT 2219, Alk Phos 296, acetaminophen level normal -possible infarct in right hepatic lobe and spleen AMS NSTEMI PAD -arterial duplex study as above, occlusive disease LLE Leukocytosis -- Thrombectomy this afternoon. Elevation in LFTs likely related to ?hepatic infarct. KANCHAN BALLARD Jul 29, 2016 13:54
[2016-07-29] MEDS ORDERED: CEFAZOLIN SODIUM 1 GM in IV NORMAL SALINE 500ML BAG 500 ML IRR ONE (14:00)
[2016-07-29] MEDS ORDERED: HEPARIN S0DIUM 5,000 UNIT in IV NORMAL SALINE 500ML BAG 500 ML IRR ONE (14:00)
[2016-07-29] MEDS ORDERED: ONDANSETRON PF 4 MG/2 ML VIAL. ONE (14:14)
[2016-07-29] MEDS ORDERED: FENTANYL PF 250 MCG/5 ML VIAL. ONE (14:14)
[2016-07-29] MEDS ORDERED: DEXAMETHASONE SOD PHOS 20 MG/5 ML VIAL. ONE (14:14)
[2016-07-29] MEDS ORDERED: PROPOFOL 20 ML IV ONE (14:14)
[2016-07-29] MEDS ORDERED: ROCURONIUM 50 MG/5 ML VIAL. ONE (14:14)
[2016-07-29] MEDS ORDERED: MIDAZOLAM HCL 2 MG/2 ML VIAL. ONE (14:14)
[2016-07-29] MEDS ORDERED: LIDOCAINE 2% 100 MG/5 ML DISP.SYRIN. ONE (14:15)
--- NOTE | 2016-07-29 14:38 | CARD ---
APPROVED REPORT EXAM: Two-dimensional and M-mode echocardiogram with Doppler and color Doppler. Other Information Quality : Average Rhythm : NSR INDICATION Non STEMI 2D DIMENSIONS Left Atrium(2D)3.5 (1.6-4.0cm)IVSd1.0 (0.7-1.1cm) Aortic Root(2D)2.7 (2.0-3.7cm)LVDd4.6 (3.9-5.9cm) LVOT Diameter2.0 (1.8-2.4cm)PWd1.0 (0.7-1.1cm) LVDs4.0 (2.5-4.0cm)FS (%) 14.5 % SV30.9 ml Aortic Valve POPEYE (VTI)2.93cm2 Mitral Valve MV E Enjfkjhm15.8cm/sMV E Peak Gr.4mmHg MV DECEL [id number] A Nebvkruo312.9cm/s MV E Mean Gr.2mmHgMV [id number] E/A Ratio0.6MV A Aucxwytz25jv MVA (PHT)4.78cm2 TDI Lateral E' P. V8.23cm/sMedial E' P. V7.34cm/s E/Lateral E'7.0E/Medial E'7.9 Tricuspid Valve TR P. Pcrkzvnm767uc/sRAP [id number] TR Peak Gr.84grKyMOWU92dyEr Pulmonary Vein S1 Iaiotdgm17.2cm/sS2 Ytfklyqb64.16cm/s D2 Lfokjbax18.2cm/s LEFT VENTRICLE The left ventricle is normal size. There is borderline concentric left ventricular hypertrophy. Left ventricle systolic function is moderate to severely decreased. The Ejection Fraction is estimated at 30%. Basal septal hypokinesis. The left ventricular diastolic function and filling is normal for age. RIGHT VENTRICLE The right ventricle is normal size. The right ventricular systolic function is normal. ATRIA The left atrium size is normal. The right atrium size is normal. The interatrial septum is intact wit h no evidence for an atrial septal defect or patent foramen ovale as noted on 2-D or Doppler imaging. AORTIC VALVE The aortic valve is normal in structure and function. The aortic valve is trileaflet. Doppler and Col or Flow revealed no significant aortic regurgitation. There is no significant aortic valvular stenosi s. MITRAL VALVE Mitral annular calcification is mild. There is no mitral valve stenosis. Doppler and Color Flow revea led mild mitral regurgitation. TRICUSPID VALVE The tricuspid valve is normal in structure and function. Doppler and Color Flow revealed mild tricusp id regurgitation. The PA pressure was estimated at 17 mmHg. There is no tricuspid valve stenosis. PULMONIC VALVE The pulmonic valve is not well visualized. Doppler and Color Flow revealed no pulmonic valvular regur gitation. There is no pulmonic valvular stenosis. GREAT VESSELS The aortic root is normal in size. Normal pulmonary venous flow (Doppler). The IVC is normal in size and collapses >50% with inspiration. PERICARDIAL EFFUSION There is no evidence of significant pericardial effusion. Critical Notification Date: 07/29/2016 Time: 12:30 Other Discipline : LEONARD Aguero Critical Value: Yes <Conclusion> The left ventricle is normal size. Left ventricle systolic function is moderate to severely decreased. The Ejection Fraction is estimated at 30%. There is borderline concentric left ventricular hypertrophy. There is no significant aortic valvular stenosis. Doppler and Color Flow revealed no significant aortic regurgitation. Doppler and Color Flow revealed mild mitral regurgitation. Doppler and Color Flow revealed mild tricuspid regurgitation. The PA pressure was estimated at 17 mmHg.
[2016-07-29] MEDS ORDERED: SUCCINYLCHOLINE 200 MG/10 ML VIAL. ONE (14:43)
[2016-07-29] MEDS ORDERED: PHENYLEPHRINE in 0.9% NACL PF 1 MG/10 ML DISP.SYRIN. IV ONE (15:01)
--- NOTE | 2016-07-29 15:03 | PDOC2 ---
Consult: Imp: 1. limb threatening ischemia left leg due to multilevel thrombosis by duplex arterial duplex evaluation. When I was contacted, arterial duplex imaging was requested. When the results were obtained, I cancelled my office appointments and proceeded forthwith and hitherto [facility] for emergency revascularization. The patient has no immediate family and cannot make decisions for himself 2. dementia 3. hx of CAD Plan: 1. emergency exploration, revascularization left leg. MARTHA DRAKE II, MD Jul 29, 2016 15:02
[2016-07-29] MEDS ORDERED: EPHEDRINE SULFATE 50 MG/ML VIAL. ONE (15:28)
[2016-07-29] MEDS ORDERED: INSULIN REGULAR VIAL 150 UNIT in 0.9 % SODIUM CHLORIDE 150ML 150 ML IV ONE (16:45)
[2016-07-29] MEDS ORDERED: ANTI-COAG MONITOR BY PHARMACY. MC PRN (17:00)
[2016-07-29] MEDS ORDERED: HEPARIN for IV BOLUS 10,000 UNIT/10 ML VIAL. ONE (17:02)
[2016-07-29] MEDS ORDERED: CEFAZOLIN PREMIX 2 GM/50 ML BAG. IV ONE (17:35)
[2016-07-29] MEDS ORDERED: NEOSTIGMINE METHYLSULFATE 5 MG/5 ML SYRINGE. ONE (20:52)
[2016-07-29] MEDS ORDERED: GLYCOPYRROLATE 1 MG/5 ML VIAL. ONE (20:52)
[2016-07-29] MEDS ORDERED: HYDROMORPHONE 2 MG/ML VIAL. IV PRN (21:15)
[2016-07-29] MEDS ORDERED: DIPHENHYDRAMINE 50 MG/ML VIAL IV PRN (21:15)
[2016-07-29] MEDS ORDERED: FENTANYL PF 100 MCG/2 ML VIAL. IV PRN (21:15)
[2016-07-29] MEDS ORDERED: MORPHINE SULFATE 4 MG/ML DISP.SYRIN. IV PRN (21:15)
[2016-07-29] MEDS ORDERED: PROCHLORPERAZINE 10 MG/2 ML VIAL. IV PRN (21:15)
[2016-07-29] MEDS ORDERED: MEPERIDINE PF 25 MG/ML VIAL. IV PRN (21:15)
[2016-07-29] MEDS: CEFTRIAXONE SODIUM 1 GM in IV NORMAL SALINE 50ML 50 ML IV SCH (21:26)
--- NOTE | 2016-07-29 21:33 | PDOC4 ---
Operative Note Operative Note Op note dictated Dx: 1. severe calcific atherosclerosis left common femoral and profunda femoral arteries 2. left popliteal artery thrombosis with runoff via peroneal artery with extreme calcification of all tibial vessels 3. 2mm saphenous vein Op: 1. left common femoral and profunda femoral endarterectomy 2. left popliteal and tibial thrombectomy 3. left tibioperoneal trunk extended endarterectomy with patch 4. left common femoral to tibial peroneal trunk bypass with 7 mm goretex Surg: Maria Fernanda GOT Note: pt has severely compromised runoff and inadequate saphenous vein. Prognosis for limb salvage poor. MARTHA DRAKE II, MD Jul 29, 2016 21:33
[2016-07-29] MEDS: HEPARIN 25,000UTS/500ML PREMIX 500 ML IV PRN (21:46)
[2016-07-29] MEDS: IV 1/2 NORMAL SALINE 1,000 ML IV SCH (21:59)
[2016-07-29] MEDS: MORPHINE SULFATE 2 MG/ML DISP.SYRIN. IV PRN (23:41)
[2016-07-30] VITALS (17 sets, daily range): BP systolic 135–158; BP diastolic 55–98
--- NOTE | 2016-07-30 02:44 | OP ---
DATE OF SURGERY: 07/29/2016 PREOPERATIVE DIAGNOSIS: Limb threatening ischemia, left leg. POSTOPERATIVE DIAGNOSES: 1. Limb threatening ischemia, left leg, due to multilevel severe calcific arterial occlusive disease. 2. Acute thrombosis of the left popliteal and tibial arteries. 3. Altered mental state. OPERATIONS PERFORMED: 1. Exploration of the left common femoral artery with endarterectomy of the common femoral artery and profunda femoris artery origin with a bovine patch. 2. Left popliteal and tibial exploration with thrombectomy of very fairly diseased vessels. 3. Left tibioperoneal trunk, extended endarterectomy with patch. 4. Left common femoral to tibioperoneal trunk bypass with 7 mm [place]. SURGEON: Martha Drake M.D. ANESTHESIA: General. INDICATIONS: This is a 66-year-old gentleman who presented to the Emergency Room with an altered mental state. He is a diabetic. We were asked to see him for mottling of the foot, which occurred this morning. He underwent arterial duplex scanning, which revealed no flow at any level below the profunda femoris artery. For this reason, it was felt that angiography would be fruitless. The operation, risks and benefits were explained, though the patient was not able to understand, and therefore proceeded to the operating room for emergency attempt at limb salvage. OPERATIVE FINDINGS: The patient had severe calcific atherosclerosis requiring basically crushing of the left common femoral artery with endarterectomy for proximal control. The left superficial femoral artery was found to be chronically occluded. The common femoral artery and profunda femoris artery were endarterectomized and the patch was placed to restore flow into the deep femoral artery. The left popliteal artery was then exposed and it was found to contain severe calcific plaque, which made arteriotomy almost impossible. A lumen was, however, identified and there was some fresh thrombus within it. Embolectomy of that done and the catheter was passed down the tibioperoneal trunk to the ankle and a bit of clot was retrieved. The patient then had vein mapping for a fem-pop bypass; however, the vein was too small in the neighborhood of 1-2 mm. This was assessed both by exploration of the vein as well as mapping with ultrasound below the femoral incision. Therefore, a graft was placed to the femoral to below-knee popliteal level. Following placement of the graft; however, flow was not heard in the tibioperoneal trunk. Therefore, this was all taken down and exposed. An arteriotomy was made in the tibioperoneal trunk and endarterectomy of this vessel was done so that a patch could be placed. The vessel was severely diseased. A bovine patch was then placed on the tibioperoneal trunk and then the [place] graft was sutured onto that. The patient had Doppler flow in the outflow tibioperoneal trunk vessel and very faint Doppler arterial flow over the posterior tibial artery at the ankle and the foot appeared to be better perfused. He will be kept on heparin. Because of the severe runoff disease and lack of suitable conduit, I think his prognosis is very guarded. DESCRIPTION OF PROCEDURE: After general anesthetic was administered, a Banks was placed and the patient was given IV antibiotics. The left leg was prepped and draped circumferentially as was the right groin. An incision was made over the left common femoral artery, which was not palpable. It was severely calcific. The common femoral artery proximally ____ profunda femoris artery and superficial femoral arteries were dissected and encircled with vessel loops. The patient had been given heparin. An arteriotomy was chiseled into the common femoral artery after a Satinsky clamp was used to crush the vessel proximally for control. No clot was identified in the common femoral artery and the superficial femoral artery was occluded chronically. An endarterectomy was performed of the common femoral artery and profunda femoris artery and a bovine patch was placed and sutured with 6-0 HS7 Prolene. Prior to completing the patch closure, the vessel was flushed antegrade and the profunda back-bled. Flow was then restored. It was evident that this was not the reason for his acute limb ischemia. Therefore, an incision was made below the knee and the popliteal artery was exposed. The vessel there was again extremely calcified with no soft spots. The tibioperoneal trunk and the anterior tibial arteries were dissected and encircled with vessel loops. An arteriotomy was made in the distal popliteal artery. This was extremely difficult because of extreme calcification. There was a little bit of stringy thrombus present in that, this was thrombectomized; however, the lumen was felt to be far from adequate. A #2 catheter was placed down the tibioperoneal trunk with difficulty to approximately 15 cm and then withdrawn. There was some clot retrieved and some minimal back bleeding. The saphenous vein was then dissected in the groin and was quite diminutive in the neighborhood of 2 mm. The [employer] ultrasound machine then was brought out and the remainder of the saphenous vein was mapped and again it was bigger than 2 mm and there were segments in the mid and distal thigh, which could not even be identified. For this reason, the [place] graft was selected for bypass from the left groin to the left below knee popliteal artery. A 7-mm graft was tunneled. The graft was then sutured end-to-side to the popliteal artery with difficulty because of the extreme calcification. Following completion of the anastomosis, heparinized saline was flushed down the tibioperoneal trunk vessel, which was the only runoff vessel. The anterior tibial artery was occluded proximally. The graft was then sutured onto the bovine patch, which had been placed in the left common femoral artery earlier. Prior to completing the anastomosis, the graft was flushed appropriately and flow instituted. There was no audible Doppler flow in the outflow of the tibioperoneal trunk. This was therefore all dissected out distally, mobilizing the popliteal vein. The graft was then clamped and then a graftotomy was made and extended onto the tibioperoneal trunk for approximately 2 inches. This vessel was extremely calcified and contained a small lumen. The #2 catheter was then placed down approximately 15 cm and then brought back. There was no clot retrieved. The catheter was then reintroduced and the balloon inflated for distal control. A bovine patch was then placed on the tibioperoneal trunk using a 6-0 Prolene. Prior to this, the vessel was endarterectomized such that sutures could be placed. This patch was extended on to the previously placed toe of the [place] graft. Following completion of the patch closure of the tibioperoneal trunk onto the distal [place] graft, flow was restored. There was good brisk flow over the tibioperoneal trunk beyond the distal patch anastomosis. ____ appeared to be improved; however, I could not hear Doppler flow in the foot. It was felt by me that the runoff was severely compromised and that because of the absence of suitable conduit and the extreme calcification of the very diminutive vessel, that no further attempt at distal dissection or extended bypass was prudent. The wounds were then irrigated with antibiotic irrigation and closed with 2-0 and 3-0 Vicryl and skin with nora. The patient will be continued on heparin 500 units per hour. MARTHA DRAKE MD DR: DARRON/vikki JOB#: [id number] / [id number]
[2016-07-30] MEDS: MORPHINE SULFATE 2 MG/ML DISP.SYRIN. IV PRN ×2 (02:57→05:45)
[2016-07-30] MEDS: METOPROLOL TARTRATE 5 MG/5 ML VIAL. IVP SCH ×3 (05:45→18:09)
--- NOTE | 2016-07-30 05:47 | CONS ---
DATE OF CONSULTATION: 07/29/2016 CLINICAL HISTORY: This is a 66-year-old gentleman, who was admitted for altered mental status. During the course of his evaluation, he was noted to have a pulseless foot this morning. I received a call around 11:00. At that time, he had not had any arterial imaging, which was ordered. That was obtained at about 1:30 and the results were called to me by the radiologist. The results are that he has occluded his left superficial femoral, popliteal, and tibial vessels. His history is unable to be obtained. This was due to his altered mental status. PAST MEDICAL HISTORY: Significant for coronary artery disease, hypertension, hyperlipidemia. He has a history of chronic renal insufficiency and type 1 diabetes. PAST SURGICAL HISTORY: Includes coronary artery bypass. FAMILY HISTORY: Not obtainable. SOCIAL HISTORY: Not obtainable. MEDICATIONS: Reviewed. He is currently on a heparin drip, which he has been on since the call to our service was made. REVIEW OF SYSTEMS: Not obtainable. PHYSICAL EXAMINATION: GENERAL: The patient is alert and awake; however, does not respond appropriately. CHEST: There are some coarse rales. CARDIOVASCULAR: Heart tones are normal. ABDOMEN: Soft. EXTREMITIES: I cannot palpate femoral pulses. Absent popliteal and pedal pulses in the left foot. The lower extremity is mottled and cyanotic. The right foot appears to be adequately perfused with Doppler flow in the right foot. DIAGNOSTIC STUDIES: Radiologic evaluation was done. This demonstrates biphasic flow in the vessels involving the right leg. On the left, there is triphasic flow in the left common femoral artery and flow into the deep femoral artery, but occlusion of the left superficial femoral artery and all vessels distally. LABORATORY EVALUATION: White count is 21,000, hemoglobin is 13. Serum creatinine is 1.5. IMPRESSION: 1. Limb-threatening ischemia of the left leg, subacute. 2. Altered mental status. 3. Type 2 diabetes. 4. History of coronary artery bypass surgery. PLAN: We will explore the vasculature of the left leg, attempting to do a thromboembolectomy type procedure, which will most likely be needed at multiple levels. He may require revascularization in the form of bypass depending on the success of the above. May need fasciotomy as well. Consent was not obtained as he is not able to ____ and he has no family to contact. There are 2 physicians, however, who feel that he has a limb-threatening situation and his best course of plan would be to proceed with attempted limb salvage. MARTHA DRAKE MD DR: DARRON/vikki JOB#: [id number] / [id number]
[2016-07-30 06:23] LABS: BASO % 0 % (0-3); EOS % 0 % (0-3); HEMATOCRIT 34.9 % (39.0-53.0); HEMOGLOBIN 10.8 g/dL (13.0-17.5); LYMPH # 0.5 x10^3/uL (1.0-4.8); LYMPH % 2 % (24-48); MEAN CORPUSCULAR HEMOGLOBIN 28 pg (25-35); MEAN CORPUSCULAR HGB CONC 31 g/dL (31-37); MEAN CORPUSCULAR VOLUME 90 fL (79-100); MONO % 6 % (0-9); NEUT % 91 % (31-73); PLATELET COUNT 127 x10^3/uL (140-400); RED BLOOD COUNT 3.86 x10^6/uL (4.30-5.70); RED CELL DISTRIBUTION WIDTH 14.8 % (11.5-14.5); WHITE BLOOD COUNT 21.1 x10^3/uL (4.0-11.0)
[2016-07-30 06:33] LABS: ALBUMIN 1.8 g/dL (3.4-5.0); ALBUMIN/GLOBULIN RATIO 0.4 (1.0-1.7); CALCIUM 8.7 mg/dL (8.5-10.1); GFR 74.5; POTASSIUM 4.6 mmol/L (3.5-5.1); TOTAL BILIRUBIN 0.6 mg/dL (0.2-1.0); TOTAL PROTEIN 6.4 g/dL (6.4-8.2)
[2016-07-30] MEDS: IV 1/2 NORMAL SALINE 1,000 ML IV SCH (08:00)
--- NOTE | 2016-07-30 08:11 | PDOC ---
SURGICAL PROGRESS NOTE Subjective pt awake but not verbal Vital Signs Vital Signs Date Time Temp Pulse Resp B/P Pulse Ox O2 Delivery O2 Flow Rate FiO2 07/30/16 06:15 14 95 Room Air 07/30/16 06:00 70 148/61 07/30/16 04:00 97.8 97.8 07/30/16 01:00 2.0 I&O Intake and Output 07/30/16 07:00 Intake Total 2622 ml Output Total 2125 ml Balance 497 ml Intake IV Total 2622 ml Output Urine Total 1625 ml Estimated Blood Loss 500 ml Extremities: Other (absent doppler arterial flow left pt artery, foot mottled, cannot passively dorsiflex foot.) Labs Laboratory Tests Test 07/28/16 19:30 07/28/16 21:24 07/29/16 00:08 07/29/16 01:00 White Blood Count 21.5x10^3/uL (4.0-11.0) Red Blood Count 4.84x10^6/uL (4.30-5.70) Hemoglobin 13.6g/dL (13.0-17.5) Hematocrit 42.8% (39.0-53.0) Mean Corpuscular Volume 88fL (79-100) Mean Corpuscular Hemoglobin 28pg (25-35) Mean Corpuscular Hemoglobin Concent 32g/dL (31-37) Red Cell Distribution Width 15.1% (11.5-14.5) Platelet Count 134x10^3/uL (140-400) Neutrophils (%) (Auto) 87% (31-73) Lymphocytes (%) (Auto) 3% (24-48) Monocytes (%) (Auto) 10% (0-9) Eosinophils (%) (Auto) 0% (0-3) Basophils (%) (Auto) 0% (0-3) Neutrophils # (Auto) 18.7x10^3uL (1.8-7.7) Lymphocytes # (Auto) 0.7x10^3/uL (1.0-4.8) Monocytes # (Auto) 2.1x10^3/uL (0.0-1.1) Eosinophils # (Auto) 0.0x10^3/uL (0.0-0.7) Basophils # (Auto) 0.1x10^3/uL (0.0-0.2) Segmented Neutrophils % 88% (35-66) Lymphocytes % 1% (24-48) Monocytes % 11% (0-10) Platelet Estimate Decreased (ADEQUATE) Giant Platelets Occ Polychromasia Slight Hypochromasia Slight Ovalocytes Occ Urine Collection Type Unknown Urine Color Yellow Urine Clarity Clear Urine pH 6.0 Urine Specific Codorus >=1.030 Urine Protein 30mg/dL (NEG-TRACE) Urine Glucose (UA) >=1000mg/dL (NEG) Urine Ketones (Stick) 15mg/dL (NEG) Urine Blood Small (NEG) Urine Nitrite Negative (NEG) Urine Bilirubin Small (NEG) Urine Urobilinogen Dipstick 0.2mg/dL (0.2 mg/dL) Urine Leukocyte Esterase Negative (NEG) Urine RBC Occ/HPF (0-2) Urine WBC Occ/HPF (0-4) Urine Squamous Epithelial Cells Few/LPF Urine Bacteria 0/HPF (0-FEW) Urine Hyaline Casts Many/HPF Sodium Level 138mmol/L (136-145) Potassium Level 4.6mmol/L (3.5-5.1) Chloride Level 99mmol/L (98-107) Carbon Dioxide Level 25mmol/L (21-32) Anion Gap 14 (6-14) Blood Urea Nitrogen 41mg/dL (8-26) Creatinine 1.5mg/dL (0.7-1.3) Estimated GFR (Cockcroft-Gault) 46.7 BUN/Creatinine Ratio 27 (6-20) Glucose Level 455mg/dL (70-99) Calcium Level 10.1mg/dL (8.5-10.1) Total Bilirubin 1.0mg/dL (0.2-1.0) Aspartate Amino Transf (AST/SGOT) 1157U/L (15-37) Alanine Aminotransferase (ALT/SGPT) 2219U/L (16-63) Alkaline Phosphatase 296U/L (46-116) Troponin I Quantitative 1.239ng/mL (0.000-0.055) Total Protein 7.9g/dL (6.4-8.2) Albumin 2.4g/dL (3.4-5.0) Albumin/Globulin Ratio 0.4 (1.0-1.7) Urine Opiates Screen Pos (NEG) Urine Methadone Screen Neg (NEG) Urine Barbiturates Neg (NEG) Urine Phencyclidine Screen Neg (NEG) Urine Amphetamine/Methamphetamine Neg (NEG) Urine Benzodiazepines Screen Neg (NEG) Urine Cocaine Screen Neg (NEG) Urine Cannabinoids Screen Neg (NEG) Urine Ethyl Alcohol Neg (NEG) Lactic Acid Level 1.9mmol/L (0.4-2.0) Ammonia 11mcmol/L (11-34) Lipase 76U/L (73-393) Glucose (Fingerstick) 358mg/dL (70-99) Nasal Screen MRSA (PCR) Negative (Negative) Test 07/29/16 04:20 07/29/16 05:10 07/29/16 08:10 07/29/16 09:31 White Blood Count 21.1x10^3/uL (4.0-11.0) Red Blood Count 4.48x10^6/uL (4.30-5.70) Hemoglobin 12.7g/dL (13.0-17.5) Hematocrit 39.4% (39.0-53.0) Mean Corpuscular Volume 88fL (79-100) Mean Corpuscular Hemoglobin 28pg (25-35) Mean Corpuscular Hemoglobin Concent 32g/dL (31-37) Red Cell Distribution Width 15.1% (11.5-14.5) Platelet Count 113x10^3/uL (140-400) Neutrophils (%) (Auto) 86% (31-73) Lymphocytes (%) (Auto) 4% (24-48) Monocytes (%) (Auto) 10% (0-9) Eosinophils (%) (Auto) 0% (0-3) Basophils (%) (Auto) 0% (0-3) Neutrophils # (Auto) 18.2x10^3uL (1.8-7.7) Lymphocytes # (Auto) 0.8x10^3/uL (1.0-4.8) Monocytes # (Auto) 2.0x10^3/uL (0.0-1.1) Eosinophils # (Auto) 0.0x10^3/uL (0.0-0.7) Basophils # (Auto) 0.0x10^3/uL (0.0-0.2) Sodium Level 142mmol/L (136-145) Potassium Level 4.6mmol/L (3.5-5.1) Chloride Level 106mmol/L (98-107) Carbon Dioxide Level 23mmol/L (21-32) Anion Gap 13 (6-14) Blood Urea Nitrogen 36mg/dL (8-26) Creatinine 1.3mg/dL (0.7-1.3) Estimated GFR (Cockcroft-Gault) 55.1 Glucose Level 370mg/dL (70-99) Hemoglobin A1c 11.7% (4.8-5.6) Calcium Level 9.0mg/dL (8.5-10.1) Troponin I Quantitative 1.124ng/mL (0.000-0.055) 1.070ng/mL (0.000-0.055) Thyroid Stimulating Hormone (TSH) 0.374uIU/mL (0.358-3.74) Prothrombin Time 17.3SEC (11.7-14.0) Prothromb Time International Ratio 1.5 (0.8-1.1) Heparin Anti-Xa Act, Unfractionated < 0.10IU/mL (0.30-0.70) Magnesium Level 2.5mg/dL (1.8-2.4) Creatine Kinase 514U/L (39-308) Creatine Kinase MB (Mass) 4.3ng/mL (0.0-3.6) Creatine Kinase MB Relative Index 0.8% (0-4) Acetaminophen Level < 2mcg/ml (10-30) Acetaminophen Last Dose Date 3-6 Acetaminophen Last Dose Time 0900 Glucose (Fingerstick) 278mg/dL (70-99) Test 07/29/16 12:10 07/29/16 12:12 07/29/16 16:30 07/29/16 21:13 Heparin Anti-Xa Act, Unfractionated 0.27IU/mL (0.30-0.70) Glucose (Fingerstick) 228mg/dL (70-99) 203mg/dL (70-99) 317mg/dL (70-99) Test 07/30/16 05:50 White Blood Count 21.1x10^3/uL (4.0-11.0) Red Blood Count 3.86x10^6/uL (4.30-5.70) Hemoglobin 10.8g/dL (13.0-17.5) Hematocrit 34.9% (39.0-53.0) Mean Corpuscular Volume 90fL (79-100) Mean Corpuscular Hemoglobin 28pg (25-35) Mean Corpuscular Hemoglobin Concent 31g/dL (31-37) Red Cell Distribution Width 14.8% (11.5-14.5) Platelet Count 127x10^3/uL (140-400) Neutrophils (%) (Auto) 91% (31-73) Lymphocytes (%) (Auto) 2% (24-48) Monocytes (%) (Auto) 6% (0-9) Eosinophils (%) (Auto) 0% (0-3) Basophils (%) (Auto) 0% (0-3) Neutrophils # (Auto) 19.3x10^3uL (1.8-7.7) Lymphocytes # (Auto) 0.5x10^3/uL (1.0-4.8) Monocytes # (Auto) 1.3x10^3/uL (0.0-1.1) Eosinophils # (Auto) 0.0x10^3/uL (0.0-0.7) Basophils # (Auto) 0.0x10^3/uL (0.0-0.2) Sodium Level 142mmol/L (136-145) Potassium Level 4.6mmol/L (3.5-5.1) Chloride Level 108mmol/L (98-107) Carbon Dioxide Level 22mmol/L (21-32) Anion Gap 12 (6-14) Blood Urea Nitrogen 31mg/dL (8-26) Creatinine 1.0mg/dL (0.7-1.3) Estimated GFR (Cockcroft-Gault) 74.5 BUN/Creatinine Ratio 31 (6-20) Glucose Level 339mg/dL (70-99) Calcium Level 8.7mg/dL (8.5-10.1) Total Bilirubin 0.6mg/dL (0.2-1.0) Aspartate Amino Transf (AST/SGOT) 353U/L (15-37) Alanine Aminotransferase (ALT/SGPT) 905U/L (16-63) Alkaline Phosphatase 233U/L (46-116) Total Protein 6.4g/dL (6.4-8.2) Albumin 1.8g/dL (3.4-5.0) Albumin/Globulin Ratio 0.4 (1.0-1.7) Triglycerides Level 97mg/dL (0-150) Cholesterol Level 127mg/dL (0-200) LDL Cholesterol, Calculated 87mg/dL (0-100) VLDL Cholesterol, Calculated 19mg/dL (0-40) HDL Cholesterol 21mg/dL (40-60) Cholesterol/HDL Ratio 6.0 Laboratory Tests Test 07/29/16 08:10 07/29/16 09:31 07/29/16 12:10 07/29/16 12:12 Heparin Anti-Xa Act, Unfractionated < 0.10IU/mL (0.30-0.70) 0.27IU/mL (0.30-0.70) Magnesium Level 2.5mg/dL (1.8-2.4) Creatine Kinase 514U/L (39-308) Creatine Kinase MB (Mass) 4.3ng/mL (0.0-3.6) Creatine Kinase MB Relative Index 0.8% (0-4) Troponin I Quantitative 1.070ng/mL (0.000-0.055) Acetaminophen Level < 2mcg/ml (10-30) Acetaminophen Last Dose Date 3-6 Acetaminophen Last Dose Time 0900 Glucose (Fingerstick) 278mg/dL (70-99) 228mg/dL (70-99) Test 07/29/16 16:30 07/29/16 21:13 07/30/16 05:50 Glucose (Fingerstick) 203mg/dL (70-99) 317mg/dL (70-99) White Blood Count 21.1x10^3/uL (4.0-11.0) Red Blood Count 3.86x10^6/uL (4.30-5.70) Hemoglobin 10.8g/dL (13.0-17.5) Hematocrit 34.9% (39.0-53.0) Mean Corpuscular Volume 90fL (79-100) Mean Corpuscular Hemoglobin 28pg (25-35) Mean Corpuscular Hemoglobin Concent 31g/dL (31-37) Red Cell Distribution Width 14.8% (11.5-14.5) Platelet Count 127x10^3/uL (140-400) Neutrophils (%) (Auto) 91% (31-73) Lymphocytes (%) (Auto) 2% (24-48) Monocytes (%) (Auto) 6% (0-9) Eosinophils (%) (Auto) 0% (0-3) Basophils (%) (Auto) 0% (0-3) Neutrophils # (Auto) 19.3x10^3uL (1.8-7.7) Lymphocytes # (Auto) 0.5x10^3/uL (1.0-4.8) Monocytes # (Auto) 1.3x10^3/uL (0.0-1.1) Eosinophils # (Auto) 0.0x10^3/uL (0.0-0.7) Basophils # (Auto) 0.0x10^3/uL (0.0-0.2) Sodium Level 142mmol/L (136-145) Potassium Level 4.6mmol/L (3.5-5.1) Chloride Level 108mmol/L (98-107) Carbon Dioxide Level 22mmol/L (21-32) Anion Gap 12 (6-14) Blood Urea Nitrogen 31mg/dL (8-26) Creatinine 1.0mg/dL (0.7-1.3) Estimated GFR (Cockcroft-Gault) 74.5 BUN/Creatinine Ratio 31 (6-20) Glucose Level 339mg/dL (70-99) Calcium Level 8.7mg/dL (8.5-10.1) Total Bilirubin 0.6mg/dL (0.2-1.0) Aspartate Amino Transf (AST/SGOT) 353U/L (15-37) Alanine Aminotransferase (ALT/SGPT) 905U/L (16-63) Alkaline Phosphatase 233U/L (46-116) Total Protein 6.4g/dL (6.4-8.2) Albumin 1.8g/dL (3.4-5.0) Albumin/Globulin Ratio 0.4 (1.0-1.7) Triglycerides Level 97mg/dL (0-150) Cholesterol Level 127mg/dL (0-200) LDL Cholesterol, Calculated 87mg/dL (0-100) VLDL Cholesterol, Calculated 19mg/dL (0-40) HDL Cholesterol 21mg/dL (40-60) Cholesterol/HDL Ratio 6.0 Problem List Problems Medical Problems: (1) Altered mental status Status: Acute (2) Dehydration Status: Acute (3) NSTEMI (non-ST elevated myocardial infarction) Status: Acute Assessment/Plan Imp: 1. failed vascular reconstruction due to inadequate tibial runoff and inadequate venous conduit. 2. altered mental status 3. diabetes with severe chronic atherosclerosis, multilevel. Plan: 1. pt will require left above knee amputation. Will schedule tomorrow. Pt has no family or DPOA. Would not advise cardiac cath via the right femoral artery approach due to extreme calcification, risk of vascular disaster. Problems: MARTHA DRAKE II, MD Jul 30, 2016 08:11
[2016-07-30] MEDS: METRONIDAZOLE 500mg PREMIX 100 ML IV SCH ×2 (09:21→22:32)
[2016-07-30] MEDS: ASPIRIN 300 MG SUPP.RECT PR SCH (09:21)
[2016-07-30] MEDS: INSULIN ASPART 300 UNITS/3 ML INSULN.PEN SQ SCH ×3 (09:25→18:20)
--- NOTE | 2016-07-30 09:33 | PDOC ---
G I PROGRESS NOTE Subjective Arouses, non-verbal. Objective Dr Irving's op note reviewed. Physical Exam Lungs clear. RRR Abdomen soft, not distended. No apparent tenderness. LLE maybe less warm than RLE, but not cold. Review of Relevant I have reviewed the following items chris (where applicable) has been applied. Labs Laboratory Tests Test 07/28/16 19:30 07/28/16 21:24 07/29/16 00:08 07/29/16 01:00 White Blood Count 21.5x10^3/uL (4.0-11.0) Red Blood Count 4.84x10^6/uL (4.30-5.70) Hemoglobin 13.6g/dL (13.0-17.5) Hematocrit 42.8% (39.0-53.0) Mean Corpuscular Volume 88fL (79-100) Mean Corpuscular Hemoglobin 28pg (25-35) Mean Corpuscular Hemoglobin Concent 32g/dL (31-37) Red Cell Distribution Width 15.1% (11.5-14.5) Platelet Count 134x10^3/uL (140-400) Neutrophils (%) (Auto) 87% (31-73) Lymphocytes (%) (Auto) 3% (24-48) Monocytes (%) (Auto) 10% (0-9) Eosinophils (%) (Auto) 0% (0-3) Basophils (%) (Auto) 0% (0-3) Neutrophils # (Auto) 18.7x10^3uL (1.8-7.7) Lymphocytes # (Auto) 0.7x10^3/uL (1.0-4.8) Monocytes # (Auto) 2.1x10^3/uL (0.0-1.1) Eosinophils # (Auto) 0.0x10^3/uL (0.0-0.7) Basophils # (Auto) 0.1x10^3/uL (0.0-0.2) Segmented Neutrophils % 88% (35-66) Lymphocytes % 1% (24-48) Monocytes % 11% (0-10) Platelet Estimate Decreased (ADEQUATE) Giant Platelets Occ Polychromasia Slight Hypochromasia Slight Ovalocytes Occ Urine Collection Type Unknown Urine Color Yellow Urine Clarity Clear Urine pH 6.0 Urine Specific [place] >=1.030 Urine Protein 30mg/dL (NEG-TRACE) Urine Glucose (UA) >=1000mg/dL (NEG) Urine Ketones (Stick) 15mg/dL (NEG) Urine Blood Small (NEG) Urine Nitrite Negative (NEG) Urine Bilirubin Small (NEG) Urine Urobilinogen Dipstick 0.2mg/dL (0.2 mg/dL) Urine Leukocyte Esterase Negative (NEG) Urine RBC Occ/HPF (0-2) Urine WBC Occ/HPF (0-4) Urine Squamous Epithelial Cells Few/LPF Urine Bacteria 0/HPF (0-FEW) Urine Hyaline Casts Many/HPF Sodium Level 138mmol/L (136-145) Potassium Level 4.6mmol/L (3.5-5.1) Chloride Level 99mmol/L (98-107) Carbon Dioxide Level 25mmol/L (21-32) Anion Gap 14 (6-14) Blood Urea Nitrogen 41mg/dL (8-26) Creatinine 1.5mg/dL (0.7-1.3) Estimated GFR (Cockcroft-Gault) 46.7 BUN/Creatinine Ratio 27 (6-20) Glucose Level 455mg/dL (70-99) Calcium Level 10.1mg/dL (8.5-10.1) Total Bilirubin 1.0mg/dL (0.2-1.0) Aspartate Amino Transf (AST/SGOT) 1157U/L (15-37) Alanine Aminotransferase (ALT/SGPT) 2219U/L (16-63) Alkaline Phosphatase 296U/L (46-116) Troponin I Quantitative 1.239ng/mL (0.000-0.055) Total Protein 7.9g/dL (6.4-8.2) Albumin 2.4g/dL (3.4-5.0) Albumin/Globulin Ratio 0.4 (1.0-1.7) Urine Opiates Screen Pos (NEG) Urine Methadone Screen Neg (NEG) Urine Barbiturates Neg (NEG) Urine Phencyclidine Screen Neg (NEG) Urine Amphetamine/Methamphetamine Neg (NEG) Urine Benzodiazepines Screen Neg (NEG) Urine Cocaine Screen Neg (NEG) Urine Cannabinoids Screen Neg (NEG) Urine Ethyl Alcohol Neg (NEG) Lactic Acid Level 1.9mmol/L (0.4-2.0) Ammonia 11mcmol/L (11-34) Lipase 76U/L (73-393) Glucose (Fingerstick) 358mg/dL (70-99) Nasal Screen MRSA (PCR) Negative (Negative) Test 07/29/16 04:20 07/29/16 05:10 07/29/16 08:10 07/29/16 09:31 White Blood Count 21.1x10^3/uL (4.0-11.0) Red Blood Count 4.48x10^6/uL (4.30-5.70) Hemoglobin 12.7g/dL (13.0-17.5) Hematocrit 39.4% (39.0-53.0) Mean Corpuscular Volume 88fL (79-100) Mean Corpuscular Hemoglobin 28pg (25-35) Mean Corpuscular Hemoglobin Concent 32g/dL (31-37) Red Cell Distribution Width 15.1% (11.5-14.5) Platelet Count 113x10^3/uL (140-400) Neutrophils (%) (Auto) 86% (31-73) Lymphocytes (%) (Auto) 4% (24-48) Monocytes (%) (Auto) 10% (0-9) Eosinophils (%) (Auto) 0% (0-3) Basophils (%) (Auto) 0% (0-3) Neutrophils # (Auto) 18.2x10^3uL (1.8-7.7) Lymphocytes # (Auto) 0.8x10^3/uL (1.0-4.8) Monocytes # (Auto) 2.0x10^3/uL (0.0-1.1) Eosinophils # (Auto) 0.0x10^3/uL (0.0-0.7) Basophils # (Auto) 0.0x10^3/uL (0.0-0.2) Sodium Level 142mmol/L (136-145) Potassium Level 4.6mmol/L (3.5-5.1) Chloride Level 106mmol/L (98-107) Carbon Dioxide Level 23mmol/L (21-32) Anion Gap 13 (6-14) Blood Urea Nitrogen 36mg/dL (8-26) Creatinine 1.3mg/dL (0.7-1.3) Estimated GFR (Cockcroft-Gault) 55.1 Glucose Level 370mg/dL (70-99) Hemoglobin A1c 11.7% (4.8-5.6) Calcium Level 9.0mg/dL (8.5-10.1) Troponin I Quantitative 1.124ng/mL (0.000-0.055) 1.070ng/mL (0.000-0.055) Thyroid Stimulating Hormone (TSH) 0.374uIU/mL (0.358-3.74) Prothrombin Time 17.3SEC (11.7-14.0) Prothromb Time International Ratio 1.5 (0.8-1.1) Heparin Anti-Xa Act, Unfractionated < 0.10IU/mL (0.30-0.70) Magnesium Level 2.5mg/dL (1.8-2.4) Creatine Kinase 514U/L (39-308) Creatine Kinase MB (Mass) 4.3ng/mL (0.0-3.6) Creatine Kinase MB Relative Index 0.8% (0-4) Acetaminophen Level < 2mcg/ml (10-30) Acetaminophen Last Dose Date 3-6 Acetaminophen Last Dose Time 0900 Glucose (Fingerstick) 278mg/dL (70-99) Test 07/29/16 12:10 07/29/16 12:12 07/29/16 16:30 07/29/16 21:13 Heparin Anti-Xa Act, Unfractionated 0.27IU/mL (0.30-0.70) Glucose (Fingerstick) 228mg/dL (70-99) 203mg/dL (70-99) 317mg/dL (70-99) Test 07/30/16 05:50 White Blood Count 21.1x10^3/uL (4.0-11.0) Red Blood Count 3.86x10^6/uL (4.30-5.70) Hemoglobin 10.8g/dL (13.0-17.5) Hematocrit 34.9% (39.0-53.0) Mean Corpuscular Volume 90fL (79-100) Mean Corpuscular Hemoglobin 28pg (25-35) Mean Corpuscular Hemoglobin Concent 31g/dL (31-37) Red Cell Distribution Width 14.8% (11.5-14.5) Platelet Count 127x10^3/uL (140-400) Neutrophils (%) (Auto) 91% (31-73) Lymphocytes (%) (Auto) 2% (24-48) Monocytes (%) (Auto) 6% (0-9) Eosinophils (%) (Auto) 0% (0-3) Basophils (%) (Auto) 0% (0-3) Neutrophils # (Auto) 19.3x10^3uL (1.8-7.7) Lymphocytes # (Auto) 0.5x10^3/uL (1.0-4.8) Monocytes # (Auto) 1.3x10^3/uL (0.0-1.1) Eosinophils # (Auto) 0.0x10^3/uL (0.0-0.7) Basophils # (Auto) 0.0x10^3/uL (0.0-0.2) Sodium Level 142mmol/L (136-145) Potassium Level 4.6mmol/L (3.5-5.1) Chloride Level 108mmol/L (98-107) Carbon Dioxide Level 22mmol/L (21-32) Anion Gap 12 (6-14) Blood Urea Nitrogen 31mg/dL (8-26) Creatinine 1.0mg/dL (0.7-1.3) Estimated GFR (Cockcroft-Gault) 74.5 BUN/Creatinine Ratio 31 (6-20) Glucose Level 339mg/dL (70-99) Calcium Level 8.7mg/dL (8.5-10.1) Total Bilirubin 0.6mg/dL (0.2-1.0) Aspartate Amino Transf (AST/SGOT) 353U/L (15-37) Alanine Aminotransferase (ALT/SGPT) 905U/L (16-63) Alkaline Phosphatase 233U/L (46-116) Total Protein 6.4g/dL (6.4-8.2) Albumin 1.8g/dL (3.4-5.0) Albumin/Globulin Ratio 0.4 (1.0-1.7) Triglycerides Level 97mg/dL (0-150) Cholesterol Level 127mg/dL (0-200) LDL Cholesterol, Calculated 87mg/dL (0-100) VLDL Cholesterol, Calculated 19mg/dL (0-40) HDL Cholesterol 21mg/dL (40-60) Cholesterol/HDL Ratio 6.0 Laboratory Tests Test 07/29/16 09:31 07/29/16 12:10 07/29/16 12:12 07/29/16 16:30 Glucose (Fingerstick) 278mg/dL (70-99) 228mg/dL (70-99) 203mg/dL (70-99) Heparin Anti-Xa Act, Unfractionated 0.27IU/mL (0.30-0.70) Test 07/29/16 21:13 07/30/16 05:50 Glucose (Fingerstick) 317mg/dL (70-99) White Blood Count 21.1x10^3/uL (4.0-11.0) Red Blood Count 3.86x10^6/uL (4.30-5.70) Hemoglobin 10.8g/dL (13.0-17.5) Hematocrit 34.9% (39.0-53.0) Mean Corpuscular Volume 90fL (79-100) Mean Corpuscular Hemoglobin 28pg (25-35) Mean Corpuscular Hemoglobin Concent 31g/dL (31-37) Red Cell Distribution Width 14.8% (11.5-14.5) Platelet Count 127x10^3/uL (140-400) Neutrophils (%) (Auto) 91% (31-73) Lymphocytes (%) (Auto) 2% (24-48) Monocytes (%) (Auto) 6% (0-9) Eosinophils (%) (Auto) 0% (0-3) Basophils (%) (Auto) 0% (0-3) Neutrophils # (Auto) 19.3x10^3uL (1.8-7.7) Lymphocytes # (Auto) 0.5x10^3/uL (1.0-4.8) Monocytes # (Auto) 1.3x10^3/uL (0.0-1.1) Eosinophils # (Auto) 0.0x10^3/uL (0.0-0.7) Basophils # (Auto) 0.0x10^3/uL (0.0-0.2) Sodium Level 142mmol/L (136-145) Potassium Level 4.6mmol/L (3.5-5.1) Chloride Level 108mmol/L (98-107) Carbon Dioxide Level 22mmol/L (21-32) Anion Gap 12 (6-14) Blood Urea Nitrogen 31mg/dL (8-26) Creatinine 1.0mg/dL (0.7-1.3) Estimated GFR (Cockcroft-Gault) 74.5 BUN/Creatinine Ratio 31 (6-20) Glucose Level 339mg/dL (70-99) Calcium Level 8.7mg/dL (8.5-10.1) Total Bilirubin 0.6mg/dL (0.2-1.0) Aspartate Amino Transf (AST/SGOT) 353U/L (15-37) Alanine Aminotransferase (ALT/SGPT) 905U/L (16-63) Alkaline Phosphatase 233U/L (46-116) Total Protein 6.4g/dL (6.4-8.2) Albumin 1.8g/dL (3.4-5.0) Albumin/Globulin Ratio 0.4 (1.0-1.7) Triglycerides Level 97mg/dL (0-150) Cholesterol Level 127mg/dL (0-200) LDL Cholesterol, Calculated 87mg/dL (0-100) VLDL Cholesterol, Calculated 19mg/dL (0-40) HDL Cholesterol 21mg/dL (40-60) Cholesterol/HDL Ratio 6.0 Microbiology 07/28/16 Blood Culture - Preliminary, Resulted NO GROWTH AFTER 1 DAY LFT's some improved. Medications Current Medications Naloxone HCl 0.4 mg 0.4 mg 1X ONCE IV Last administered on 07/28/16 21:30; Start 07/28/16 at 21:30; Stop 07/28/16 at 21:31; Status DC Sodium Chloride 1,000 ml @ 1,000 mls/hr 1X ONCE IV Last administered on 21:30; Start 07/28/16 at 21:30; Stop 07/28/16 at 22:29; Status DC Ceftriaxone Sodium 1 gm/ Sodium Chloride 50 ml @ 100 mls/hr Q24H IV Last administered on 07/29/16 21:26; Start 07/29/16 at 21:00 Ceftriaxone Sodium 50 ml @ 100 mls/hr 1X ONCE IV Last administered on 21:35; Start 07/28/16 at 22:00; Stop 07/28/16 at 22:29; Status DC Heparin Sodium/ Dextrose 500 ml @ 0 mls/hr CONT PRN IV SEE I/O RECORD Last administered on 07/29/16 21:46; Start 07/28/16 at 22:00; Stop 07/30/16 at 07:59; Status DC Heparin Sodium (Porcine) 2,200 unit PRN Q6HRS PRN IV FOR UFH LEVEL LESS THAN 0.2 Last administered on 07/28/16 23:14; Start 07/28/16 at 22:00; Stop 07/30/16 at 08:00; Status DC Ondansetron HCl 4 mg 4 mg PRN Q8HRS PRN IV NAUSEA/VOMITING; Start 07/28/16 at 22 :15; Stop 07/29/16 at 22:14; Status DC Sodium Chloride 1,000 ml @ 125 mls/hr Q8H IV Last administered on 07/29/16 08: 16; Start 07/28/16 at 22:01; Stop 07/29/16 at 13:04; Status DC Metronidazole (FLAGYL 500Mmg PREMIX) 100 ml @ 100 mls/hr Q12HR IV Last administered on 07/30/16 09:21; Start 07/28/16 at 22:30 Hydralazine HCl (Apresoline) 10 mg PRN Q4HRS PRN IVP ELEVATED BP, SEE COMMENTS ; Start 07/29/16 at 03:00 Insulin Aspart (Novolog) 0-9 UNITS TIDWMEALS SQ Last administered on 07/30/16 09:25; Start 07/29/16 at 08:00 Dextrose 12.5 gm PRN Q15MIN PRN IV SEE COMMENTS; Start 07/29/16 at 03:00 Insulin Aspart (Novolog) 8 units 1X ONCE SQ Last administered on 07/29/16 08: 20; Start 07/29/16 at 08:30; Stop 07/29/16 at 08:31; Status DC Morphine Sulfate 2 mg PRN Q2HR PRN IV PAIN Last administered on 07/30/16 05:45 ; Start 07/29/16 at 09:00 Aspirin (Aspirin) 300 mg 1X ONCE ND Last administered on 07/29/16 13:17; Start 07/29/16 at 10:30; Stop 07/29/16 at 10:31; Status DC Heparin Sodium (Porcine) 1,800 unit PRN Q6HRS PRN IV FOR UFH LEVEL LESS THAN 0.2 Last administered on 07/29/16 10:35; Start 07/29/16 at 10:15; Stop 07/30/16 at 08:00; Status DC Metoprolol Tartrate (Lopressor) 5 mg Q6HRS IVP Last administered on 07/30/16 05 :45; Start 07/29/16 at 13:00 Aspirin 150 mg 150 mg DAILY ND Last administered on 07/30/16 09:21; Start at 09:00 Sodium Chloride 1,000 ml @ 60 mls/hr [id number] IV Last administered on 07/29/16 13:25; Start 07/29/16 at 13:30; Stop 07/29/16 at 13:31; Status DC Heparin Sodium (Porcine) 5000 unit/Sodium Chloride 505 ml @ 505 mls/hr 1X PERIOP ONCE IRR Last administered on 07/29/16 15:26; Start 07/29/16 at 14:00; Stop 07/29/16 at 14:59; Status DC Cefazolin Sodium/ Sodium Chloride (Ancef/Iv Sodium Chloride 0.9% 500ml Bag) 500 ml @ 500 mls/hr 1X PERIOP ONCE IRR Last administered on 07/29/16 15:26; Start 07/29/16 at 14:00; Stop 07/29/16 at 14:59; Status DC Gelatin (Gelfoam Size 12-7mm) 1 each STK-MED ONCE .ROUTE ; Start 07/29/16 at 13: 54; Stop 07/29/16 at 13:55; Status DC Cellulose 1 each STK-MED ONCE .ROUTE ; Start 07/29/16 at 13:54; Stop 07/29/16 at 13:55; Status DC Iohexol (Omnipaque 300 Mg/ml) 50 ml STK-MED ONCE .ROUTE ; Start 07/29/16 at 13:54 ; Stop 07/29/16 at 13:55; Status DC Gelatin (Gelfoam Size 100) 1 each STK-MED ONCE .ROUTE ; Start 07/29/16 at 13:54 ; Stop 07/29/16 at 13:55; Status DC Papaverine HCl 60 mg STK-MED ONCE .ROUTE ; Start 07/29/16 at 13:54; Stop 07/29/16 at 13:55; Status DC Thrombin 20,000 unit STK-MED ONCE TP ; Start 07/29/16 at 13:54; Stop 07/29/16 at 13:55; Status DC Midazolam HCl (Versed) 2 mg STK-MED ONCE .ROUTE ; Start 07/29/16 at 14:14; Stop 07/29/16 at 14:15; Status DC Fentanyl Citrate (Fentanyl 5ml Vial) 250 mcg STK-MED ONCE .ROUTE ; Start at 14:14; Stop 07/29/16 at 14:15; Status DC Rocuronium [place] 50 mg 50 mg STK-MED ONCE .ROUTE ; Start 07/29/16 at 14:14; Stop 07/29/16 at 14:15; Status DC Propofol (Diprivan) 20 ml @ As Directed STK-MED ONCE IV ; Start 07/29/16 at 14:14 ; Stop 07/29/16 at 14:15; Status DC Dexamethasone Sodium Phosphate (Decadron) 20 mg STK-MED ONCE .ROUTE ; Start 07/29 at 14:14; Stop 07/29/16 at 14:15; Status DC Ondansetron HCl (Zofran) 4 mg STK-MED ONCE .ROUTE ; Start 07/29/16 at 14:14; Stop 07/29/16 at 14:15; Status DC Lidocaine HCl 100 mg STK-MED ONCE .ROUTE ; Start 07/29/16 at 14:15; Stop 07/29/16 at 14:16; Status DC Succinylcholine Chloride (Anectine) 200 mg STK-MED ONCE .ROUTE ; Start 07/29/16 at 14:43; Stop 07/29/16 at 14:44; Status DC Phenylephrine HCl 1 mg STK-MED ONCE IV ; Start 07/29/16 at 15:01; Stop 07/29/16 at 15:02; Status DC Ephedrine Sulfate 50 mg 50 mg STK-MED ONCE .ROUTE ; Start 07/29/16 at 15:28; Stop 07/29/16 at 15:29; Status DC Insulin Human Regular/Sodium Chloride (Novolin R Vial/ Iv Normal Saline 150ml) 151.5 ml @ 7.29 mls/hr 1X ONCE IV ; Start 07/29/16 at 16:45; Stop 07/30/16 at 13 :31 Info (Anti-Coagulation Monitoring By Pharmacy) 1 each PRN DAILY PRN MC SEE COMMENTS Last administered on 07/29/16t 17:00; Start 07/29/16 at 17:00 Heparin Sodium (Porcine) 10,000 unit STK-MED ONCE .ROUTE ; Start 07/29/16 at 17: 02; Stop 07/29/16 at 17:03; Status DC Neostigmine Methylsulfate 5 mg STK-MED ONCE .ROUTE ; Start 07/29/16 at 20:52; Stop 07/29/16 at 20:53; Status DC Glycopyrrolate (Robinul) 1 mg STK-MED ONCE .ROUTE ; Start 07/29/16 at 20:52; Stop 07/29/16 at 20:53; Status DC Fentanyl Citrate (Fentanyl 2ml Vial) 50 mcg PRN Q5MIN PRN IV Acute Pain; Start 07/29/16 at 21:15; Stop 07/30/16 at 21:14 Morphine Sulfate 4 mg PRN Q10MIN PRN IV Moderate Pain; Start 07/29/16 at 21:15; Stop 07/30/16 at 21:14 Hydromorphone HCl (Dilaudid) 0.4 mg PRN Q10MIN PRN IV Moderate to severe pain; Start 07/29/16 at 21:15; Stop 07/30/16 at 21:14 Meperidine HCl (Demerol) 12.5 mg PRN Q5MIN PRN IV SHIVERING; Start 07/29/16 at 21:15; Stop 07/30/16 at 00:00; Status DC Prochlorperazine Edisylate (Compazine) 5 mg PRN Q6HRS PRN IV Nausea/Vomiting, 1st Choice; Start 07/29/16 at 21:15; Stop 07/30/16 at 21:14 Diphenhydramine HCl 12.5 mg 12.5 mg PRN Q2HR PRN IV ITCHING; Start 07/29/16 at 21:15; Stop 07/30/16 at 21:14 Sodium Chloride (Iv Sodium Chloride 0.45%) 1,000 ml @ 100 mls/hr Q10H IV Last administered on 07/29/16t 21:59; Start 07/29/16 at 22:00 Cefazolin Sodium/ Dextrose (Ancef 2gm Premix) 2 gm STK-MED ONCE IV ; Start at 17:35; Stop 07/30/16 at 08:53; Status DC Active Scripts Active Reported Hydrocodone-Apap 5-325 (Hydrocodone Bit/Acetaminophen) 1 Each Tablet 1 Tab PO Q4HRS PRN Vitals/I & O Vital Sign - Last 24 Hours 07/29/16 07/29/16 07/29/16 07/29/16 10:00 11:00 12:00 12:00 Temp 99.3 99.3 Pulse 84 84 89 Resp B/P 152/77 146/72 132/78 Pulse Ox 93 91 91 O2 Delivery Room Air Room Air Room Air Room Air 07/29/16 07/29/16 07/29/16 07/29/16 13:00 13:18 14:00 21:01 Temp 97.4 97.4 Pulse 69 79 73 92 Resp B/P 150/69 154/76 138/72 142/67 Pulse Ox 94 92 97 O2 Delivery Room Air Room Air Simple Mask O2 Flow Rate 8.0 07/29/16 07/29/16 07/29/16 07/29/16 21:05 21:05 21:16 21:31 Pulse 94 93 98 Resp B/P 116/68 116/68 156/68 Pulse Ox 99 99 O2 Delivery Mask Simple Mask Simple Mask O2 Flow Rate 10.0 8.0 8.0 07/29/16 07/29/16 07/29/16 07/29/16 21:46 22:02 23:00 23:40 Temp 97.0 97.0 Pulse 99 98 95 88 Resp B/P 150/73 130/76 148/62 153/59 Pulse Ox 98 98 93 O2 Delivery Nasal Cannula Nasal Cannula Nasal Cannula O2 Flow Rate 2.0 2.0 2.0 07/29/16 07/29/16 07/29/16 07/30/16 23:41 23:59 23:59 00:00 Temp 97.6 97.6 Pulse 76 76 Resp B/P 141/55 141/55 Pulse Ox 97 98 O2 Delivery Nasal Cannula Nasal Cannula Nasal Cannula O2 Flow Rate 2.0 2.0 2.0 07/30/16 07/30/16 07/30/16 07/30/16 01:00 02:00 02:57 03:00 Pulse 76 73 80 Resp 26 14 18 16 B/P 149/60 142/61 143/62 Pulse Ox 98 93 94 93 O2 Delivery Nasal Cannula Room Air Room Air Room Air O2 Flow Rate 2.0 07/30/16 07/30/16 07/30/16 07/30/16 04:00 04:00 04:00 05:00 Temp 97.8 97.8 Pulse 78 78 86 Resp 15 16 B/P 149/76 149/76 154/63 Pulse Ox 94 93 O2 Delivery Room Air Room Air Room Air 07/30/16 07/30/16 07/30/16 07/30/16 05:45 05:45 06:00 06:15 Pulse 84 70 Resp 10 24 14 B/P 159/64 148/61 Pulse Ox 94 91 95 O2 Delivery Room Air Room Air Room Air Intake and Output 07/29/16 07/29/16 07/30/16 15:00 23:00 07:00 Intake Total 2250 ml 372 ml Output Total 600 ml 825 ml 700 ml Balance -600 ml 1425 ml -328 ml Problem List Problems Medical Problems: (1) Altered mental status Status: Acute (2) Dehydration Status: Acute (3) NSTEMI (non-ST elevated myocardial infarction) Status: Acute Assessment Transaminitis, improved. Due to hepatic infarct? LLE ischemia, s/p embol/thrombectomy. Concerns re: [facility] limb salvage. Plan of Care: Continue current Tx, Mgmt Plan of Care Note Will add PPI as surely a chance of becoming more critically ill. JETHRO SEE MD Jul 30, 2016 09:33
[2016-07-30] MEDS ORDERED: IV NORMAL SALINE 1000ML BAG 1,000 ML IV SCH (09:45)
--- NOTE | 2016-07-30 10:27 | PDOC ---
CARDIO Progress Notes Date and Time Date of Service 07/30/2016 Time of Evaluation 0930 Subjective Subjective: Other (no noted moaning or symptoms of discomfort, nonverbal) Vitals Vitals Vital Signs Date Time Temp Pulse Resp B/P Pulse Ox O2 Delivery O2 Flow Rate FiO2 07/30/16 06:15 14 95 Room Air 07/30/16 06:00 70 148/61 07/30/16 04:00 97.8 97.8 07/30/16 01:00 2.0 Weight Weight [ ] Input and Output Intake and Output Intake and Output 07/30/16 07:00 Intake Total 2622 ml Output Total 2125 ml Balance 497 ml Intake IV Total 2622 ml Output Urine Total 1625 ml Estimated Blood Loss 500 ml Laboratory Labs Laboratory Tests Test 07/29/16 12:10 07/29/16 12:12 07/29/16 16:30 07/29/16 21:13 Heparin Anti-Xa Act, Unfractionated 0.27IU/mL (0.30-0.70) Glucose (Fingerstick) 228mg/dL (70-99) 203mg/dL (70-99) 317mg/dL (70-99) Test 07/30/16 05:50 White Blood Count 21.1x10^3/uL (4.0-11.0) Red Blood Count 3.86x10^6/uL (4.30-5.70) Hemoglobin 10.8g/dL (13.0-17.5) Hematocrit 34.9% (39.0-53.0) Mean Corpuscular Volume 90fL (79-100) Mean Corpuscular Hemoglobin 28pg (25-35) Mean Corpuscular Hemoglobin Concent 31g/dL (31-37) Red Cell Distribution Width 14.8% (11.5-14.5) Platelet Count 127x10^3/uL (140-400) Neutrophils (%) (Auto) 91% (31-73) Lymphocytes (%) (Auto) 2% (24-48) Monocytes (%) (Auto) 6% (0-9) Eosinophils (%) (Auto) 0% (0-3) Basophils (%) (Auto) 0% (0-3) Neutrophils # (Auto) 19.3x10^3uL (1.8-7.7) Lymphocytes # (Auto) 0.5x10^3/uL (1.0-4.8) Monocytes # (Auto) 1.3x10^3/uL (0.0-1.1) Eosinophils # (Auto) 0.0x10^3/uL (0.0-0.7) Basophils # (Auto) 0.0x10^3/uL (0.0-0.2) Sodium Level 142mmol/L (136-145) Potassium Level 4.6mmol/L (3.5-5.1) Chloride Level 108mmol/L (98-107) Carbon Dioxide Level 22mmol/L (21-32) Anion Gap 12 (6-14) Blood Urea Nitrogen 31mg/dL (8-26) Creatinine 1.0mg/dL (0.7-1.3) Estimated GFR (Cockcroft-Gault) 74.5 BUN/Creatinine Ratio 31 (6-20) Glucose Level 339mg/dL (70-99) Calcium Level 8.7mg/dL (8.5-10.1) Total Bilirubin 0.6mg/dL (0.2-1.0) Aspartate Amino Transf (AST/SGOT) 353U/L (15-37) Alanine Aminotransferase (ALT/SGPT) 905U/L (16-63) Alkaline Phosphatase 233U/L (46-116) Total Protein 6.4g/dL (6.4-8.2) Albumin 1.8g/dL (3.4-5.0) Albumin/Globulin Ratio 0.4 (1.0-1.7) Triglycerides Level 97mg/dL (0-150) Cholesterol Level 127mg/dL (0-200) LDL Cholesterol, Calculated 87mg/dL (0-100) VLDL Cholesterol, Calculated 19mg/dL (0-40) HDL Cholesterol 21mg/dL (40-60) Cholesterol/HDL Ratio 6.0 Microbiology Micro Microbiology 07/28/16 Blood Culture - Preliminary, Resulted NO GROWTH AFTER 1 DAY Physical Exam HEENT: Neck Supple W Full Motion Chest: Symmetric LUNGS: Other (faint basilar crackles) Heart: S1S2, RRR (SR no rhythm ectopies), murmurs (2/6 systolic murmur to LLS border) Abdomen: Soft N/T Extremities: No Calf Tenderness, Other (below L knee to L foot mottled and pale and cool. ) Neurology: alert, non-verbal Assessment Assessment 1. Metabolic encephalopathy: remains nonverbal but alert. Unknown mental baseline. 2. Severe transaminitis: possible hepatic infarct per GI 3. NSTEMI: peaked at 1.23. EKG SR with diffuse nonspecific ST-T wave changes and notable for inferior PR. Remains to have no cardiac symptoms. Suspect type 2 4. CAD: CABG in the past, unknown date 5. Severe PAD/LLE ischemia: failed revascularization to LLE per vascular surgery , POD#1. LAKA scheduled for tomorrow. 6. HTN: controlled 7. HLP 8. DM1: uncontrolled. A1C. 11.3 9. RODRIGO on CKD3: much better 10. Cardiomyopathy: EF 30% with basal septal hypokinesis and left ventricle systolic function is moderate to severely decreased with current TTE 11. Suspecting poor compliance Recommendations 1. Continue with rectal ASA until po is allowed. Would recommend adding plavix post surgery once ok with vascular surgery 2. Start on statin per lipid levels once po allowed. 3. Unable to establish baseline cardiac function due inability to contact any next of kin thus no old records. 4. Good tolerance with vascular surgery. If mental status is improved, medical history verified and family contacts establish then will plan for ischemic workup likely as an outpt. 5. Continue with secondary prevention 6. Caution with intravenous infusion and avoid CHF. Maintain lyte balance, Maintain K and Mg 4.0 and 2.0 respectively 7. Good IV hydration. Establish 2000 ml fluid restriction. 8. Good UOP. Lasix IV PRN. Start on losartan once po is allowed. Hydralazine IV PRN. Lasix po to commence post surgery once po allowed. 9. Continue with supportive care NASEEM WILSON [employer] Jul 30, 2016 10:27
--- NOTE | 2016-07-30 12:43 | PDOC ---
PROGRESS NOTES Chief Complaint Chief Complaint Dm1, poor control acute metabolic encephalopathy, NSTEMI, better leg leg pain, loss of pulses vasomotor nephropathy, diabetes with severe chronic atherosclerosis, multilevel. Plan: 1. pt will require left above knee amputation. Will schedule tomorrow. Pt has no family or DPOA. Would not advise cardiac cath via the right femoral artery approach due to extreme calcification, risk of vascular disaster. Problems: History of Present Illness History of Present Illness poor pulses, left, failed vascular reconstruction due to inadequate tibial runoff and inadequate venous conduit. Vitals Vitals Vital Signs Date Time Temp Pulse Resp B/P Pulse Ox O2 Delivery O2 Flow Rate FiO2 07/30/16 11:00 86 24 158/74 95 Nasal Cannula 2.0 07/30/16 08:00 98.4 98.4 Physical Exam General: Cooperative, No acute distress, Other (confuse) Heart: Regular rate, Normal S1, Normal S2, No murmurs, Other (2/6 systolic murmur to LLS border) Abdomen: Soft, No tenderness Extremities: Other (absent doppler arterial flow left pt artery, foot mottled, cannot passively dorsiflex foot.) Skin: No breakdown, Other (white scaly skin to bilateral feet) Labs LABS Laboratory Tests Test 07/29/16 16:30 07/29/16 21:13 07/30/16 05:50 Glucose (Fingerstick) 203mg/dL (70-99) 317mg/dL (70-99) White Blood Count 21.1x10^3/uL (4.0-11.0) Red Blood Count 3.86x10^6/uL (4.30-5.70) Hemoglobin 10.8g/dL (13.0-17.5) Hematocrit 34.9% (39.0-53.0) Mean Corpuscular Volume 90fL (79-100) Mean Corpuscular Hemoglobin 28pg (25-35) Mean Corpuscular Hemoglobin Concent 31g/dL (31-37) Red Cell Distribution Width 14.8% (11.5-14.5) Platelet Count 127x10^3/uL (140-400) Neutrophils (%) (Auto) 91% (31-73) Lymphocytes (%) (Auto) 2% (24-48) Monocytes (%) (Auto) 6% (0-9) Eosinophils (%) (Auto) 0% (0-3) Basophils (%) (Auto) 0% (0-3) Neutrophils # (Auto) 19.3x10^3uL (1.8-7.7) Lymphocytes # (Auto) 0.5x10^3/uL (1.0-4.8) Monocytes # (Auto) 1.3x10^3/uL (0.0-1.1) Eosinophils # (Auto) 0.0x10^3/uL (0.0-0.7) Basophils # (Auto) 0.0x10^3/uL (0.0-0.2) Sodium Level 142mmol/L (136-145) Potassium Level 4.6mmol/L (3.5-5.1) Chloride Level 108mmol/L (98-107) Carbon Dioxide Level 22mmol/L (21-32) Anion Gap 12 (6-14) Blood Urea Nitrogen 31mg/dL (8-26) Creatinine 1.0mg/dL (0.7-1.3) Estimated GFR (Cockcroft-Gault) 74.5 BUN/Creatinine Ratio 31 (6-20) Glucose Level 339mg/dL (70-99) Calcium Level 8.7mg/dL (8.5-10.1) Total Bilirubin 0.6mg/dL (0.2-1.0) Aspartate Amino Transf (AST/SGOT) 353U/L (15-37) Alanine Aminotransferase (ALT/SGPT) 905U/L (16-63) Alkaline Phosphatase 233U/L (46-116) Total Protein 6.4g/dL (6.4-8.2) Albumin 1.8g/dL (3.4-5.0) Albumin/Globulin Ratio 0.4 (1.0-1.7) Triglycerides Level 97mg/dL (0-150) Cholesterol Level 127mg/dL (0-200) LDL Cholesterol, Calculated 87mg/dL (0-100) VLDL Cholesterol, Calculated 19mg/dL (0-40) HDL Cholesterol 21mg/dL (40-60) Cholesterol/HDL Ratio 6.0 Assessment and Plan Assessmemt and Plan plan for left leg amputation surg tomorrow Problems Medical Problems: (1) Altered mental status Status: Acute (2) Dehydration Status: Acute (3) NSTEMI (non-ST elevated myocardial infarction) Status: Acute Problems: Comment Review of Relevant I have reviewed the following items chris (where applicable) has been applied. Labs Laboratory Tests Test 07/28/16 19:30 07/28/16 21:24 07/29/16 00:08 07/29/16 01:00 White Blood Count 21.5x10^3/uL (4.0-11.0) Red Blood Count 4.84x10^6/uL (4.30-5.70) Hemoglobin 13.6g/dL (13.0-17.5) Hematocrit 42.8% (39.0-53.0) Mean Corpuscular Volume 88fL (79-100) Mean Corpuscular Hemoglobin 28pg (25-35) Mean Corpuscular Hemoglobin Concent 32g/dL (31-37) Red Cell Distribution Width 15.1% (11.5-14.5) Platelet Count 134x10^3/uL (140-400) Neutrophils (%) (Auto) 87% (31-73) Lymphocytes (%) (Auto) 3% (24-48) Monocytes (%) (Auto) 10% (0-9) Eosinophils (%) (Auto) 0% (0-3) Basophils (%) (Auto) 0% (0-3) Neutrophils # (Auto) 18.7x10^3uL (1.8-7.7) Lymphocytes # (Auto) 0.7x10^3/uL (1.0-4.8) Monocytes # (Auto) 2.1x10^3/uL (0.0-1.1) Eosinophils # (Auto) 0.0x10^3/uL (0.0-0.7) Basophils # (Auto) 0.1x10^3/uL (0.0-0.2) Segmented Neutrophils % 88% (35-66) Lymphocytes % 1% (24-48) Monocytes % 11% (0-10) Platelet Estimate Decreased (ADEQUATE) Giant Platelets Occ Polychromasia Slight Hypochromasia Slight Ovalocytes Occ Urine Collection Type Unknown Urine Color Yellow Urine Clarity Clear Urine pH 6.0 Urine Specific [place] >=1.030 Urine Protein 30mg/dL (NEG-TRACE) Urine Glucose (UA) >=1000mg/dL (NEG) Urine Ketones (Stick) 15mg/dL (NEG) Urine Blood Small (NEG) Urine Nitrite Negative (NEG) Urine Bilirubin Small (NEG) Urine Urobilinogen Dipstick 0.2mg/dL (0.2 mg/dL) Urine Leukocyte Esterase Negative (NEG) Urine RBC Occ/HPF (0-2) Urine WBC Occ/HPF (0-4) Urine Squamous Epithelial Cells Few/LPF Urine Bacteria 0/HPF (0-FEW) Urine Hyaline Casts Many/HPF Sodium Level 138mmol/L (136-145) Potassium Level 4.6mmol/L (3.5-5.1) Chloride Level 99mmol/L (98-107) Carbon Dioxide Level 25mmol/L (21-32) Anion Gap 14 (6-14) Blood Urea Nitrogen 41mg/dL (8-26) Creatinine 1.5mg/dL (0.7-1.3) Estimated GFR (Cockcroft-Gault) 46.7 BUN/Creatinine Ratio 27 (6-20) Glucose Level 455mg/dL (70-99) Calcium Level 10.1mg/dL (8.5-10.1) Total Bilirubin 1.0mg/dL (0.2-1.0) Aspartate Amino Transf (AST/SGOT) 1157U/L (15-37) Alanine Aminotransferase (ALT/SGPT) 2219U/L (16-63) Alkaline Phosphatase 296U/L (46-116) Troponin I Quantitative 1.239ng/mL (0.000-0.055) Total Protein 7.9g/dL (6.4-8.2) Albumin 2.4g/dL (3.4-5.0) Albumin/Globulin Ratio 0.4 (1.0-1.7) Urine Opiates Screen Pos (NEG) Urine Methadone Screen Neg (NEG) Urine Barbiturates Neg (NEG) Urine Phencyclidine Screen Neg (NEG) Urine Amphetamine/Methamphetamine Neg (NEG) Urine Benzodiazepines Screen Neg (NEG) Urine Cocaine Screen Neg (NEG) Urine Cannabinoids Screen Neg (NEG) Urine Ethyl Alcohol Neg (NEG) Lactic Acid Level 1.9mmol/L (0.4-2.0) Ammonia 11mcmol/L (11-34) Lipase 76U/L (73-393) Glucose (Fingerstick) 358mg/dL (70-99) Nasal Screen MRSA (PCR) Negative (Negative) Test 07/29/16 04:20 07/29/16 05:10 07/29/16 08:10 07/29/16 09:31 White Blood Count 21.1x10^3/uL (4.0-11.0) Red Blood Count 4.48x10^6/uL (4.30-5.70) Hemoglobin 12.7g/dL (13.0-17.5) Hematocrit 39.4% (39.0-53.0) Mean Corpuscular Volume 88fL (79-100) Mean Corpuscular Hemoglobin 28pg (25-35) Mean Corpuscular Hemoglobin Concent 32g/dL (31-37) Red Cell Distribution Width 15.1% (11.5-14.5) Platelet Count 113x10^3/uL (140-400) Neutrophils (%) (Auto) 86% (31-73) Lymphocytes (%) (Auto) 4% (24-48) Monocytes (%) (Auto) 10% (0-9) Eosinophils (%) (Auto) 0% (0-3) Basophils (%) (Auto) 0% (0-3) Neutrophils # (Auto) 18.2x10^3uL (1.8-7.7) Lymphocytes # (Auto) 0.8x10^3/uL (1.0-4.8) Monocytes # (Auto) 2.0x10^3/uL (0.0-1.1) Eosinophils # (Auto) 0.0x10^3/uL (0.0-0.7) Basophils # (Auto) 0.0x10^3/uL (0.0-0.2) Sodium Level 142mmol/L (136-145) Potassium Level 4.6mmol/L (3.5-5.1) Chloride Level 106mmol/L (98-107) Carbon Dioxide Level 23mmol/L (21-32) Anion Gap 13 (6-14) Blood Urea Nitrogen 36mg/dL (8-26) Creatinine 1.3mg/dL (0.7-1.3) Estimated GFR (Cockcroft-Gault) 55.1 Glucose Level 370mg/dL (70-99) Hemoglobin A1c 11.7% (4.8-5.6) Calcium Level 9.0mg/dL (8.5-10.1) Troponin I Quantitative 1.124ng/mL (0.000-0.055) 1.070ng/mL (0.000-0.055) Thyroid Stimulating Hormone (TSH) 0.374uIU/mL (0.358-3.74) Prothrombin Time 17.3SEC (11.7-14.0) Prothromb Time International Ratio 1.5 (0.8-1.1) Heparin Anti-Xa Act, Unfractionated < 0.10IU/mL (0.30-0.70) Magnesium Level 2.5mg/dL (1.8-2.4) Creatine Kinase 514U/L (39-308) Creatine Kinase MB (Mass) 4.3ng/mL (0.0-3.6) Creatine Kinase MB Relative Index 0.8% (0-4) Acetaminophen Level < 2mcg/ml (10-30) Acetaminophen Last Dose Date 3-6 Acetaminophen Last Dose Time 0900 Glucose (Fingerstick) 278mg/dL (70-99) Test 07/29/16 12:10 07/29/16 12:12 07/29/16 16:30 07/29/16 21:13 Heparin Anti-Xa Act, Unfractionated 0.27IU/mL (0.30-0.70) Glucose (Fingerstick) 228mg/dL (70-99) 203mg/dL (70-99) 317mg/dL (70-99) Test 07/30/16 05:50 White Blood Count 21.1x10^3/uL (4.0-11.0) Red Blood Count 3.86x10^6/uL (4.30-5.70) Hemoglobin 10.8g/dL (13.0-17.5) Hematocrit 34.9% (39.0-53.0) Mean Corpuscular Volume 90fL (79-100) Mean Corpuscular Hemoglobin 28pg (25-35) Mean Corpuscular Hemoglobin Concent 31g/dL (31-37) Red Cell Distribution Width 14.8% (11.5-14.5) Platelet Count 127x10^3/uL (140-400) Neutrophils (%) (Auto) 91% (31-73) Lymphocytes (%) (Auto) 2% (24-48) Monocytes (%) (Auto) 6% (0-9) Eosinophils (%) (Auto) 0% (0-3) Basophils (%) (Auto) 0% (0-3) Neutrophils # (Auto) 19.3x10^3uL (1.8-7.7) Lymphocytes # (Auto) 0.5x10^3/uL (1.0-4.8) Monocytes # (Auto) 1.3x10^3/uL (0.0-1.1) Eosinophils # (Auto) 0.0x10^3/uL (0.0-0.7) Basophils # (Auto) 0.0x10^3/uL (0.0-0.2) Sodium Level 142mmol/L (136-145) Potassium Level 4.6mmol/L (3.5-5.1) Chloride Level 108mmol/L (98-107) Carbon Dioxide Level 22mmol/L (21-32) Anion Gap 12 (6-14) Blood Urea Nitrogen 31mg/dL (8-26) Creatinine 1.0mg/dL (0.7-1.3) Estimated GFR (Cockcroft-Gault) 74.5 BUN/Creatinine Ratio 31 (6-20) Glucose Level 339mg/dL (70-99) Calcium Level 8.7mg/dL (8.5-10.1) Total Bilirubin 0.6mg/dL (0.2-1.0) Aspartate Amino Transf (AST/SGOT) 353U/L (15-37) Alanine Aminotransferase (ALT/SGPT) 905U/L (16-63) Alkaline Phosphatase 233U/L (46-116) Total Protein 6.4g/dL (6.4-8.2) Albumin 1.8g/dL (3.4-5.0) Albumin/Globulin Ratio 0.4 (1.0-1.7) Triglycerides Level 97mg/dL (0-150) Cholesterol Level 127mg/dL (0-200) LDL Cholesterol, Calculated 87mg/dL (0-100) VLDL Cholesterol, Calculated 19mg/dL (0-40) HDL Cholesterol 21mg/dL (40-60) Cholesterol/HDL Ratio 6.0 Laboratory Tests Test 07/29/16 16:30 07/29/16 21:13 07/30/16 05:50 Glucose (Fingerstick) 203mg/dL (70-99) 317mg/dL (70-99) White Blood Count 21.1x10^3/uL (4.0-11.0) Red Blood Count 3.86x10^6/uL (4.30-5.70) Hemoglobin 10.8g/dL (13.0-17.5) Hematocrit 34.9% (39.0-53.0) Mean Corpuscular Volume 90fL (79-100) Mean Corpuscular Hemoglobin 28pg (25-35) Mean Corpuscular Hemoglobin Concent 31g/dL (31-37) Red Cell Distribution Width 14.8% (11.5-14.5) Platelet Count 127x10^3/uL (140-400) Neutrophils (%) (Auto) 91% (31-73) Lymphocytes (%) (Auto) 2% (24-48) Monocytes (%) (Auto) 6% (0-9) Eosinophils (%) (Auto) 0% (0-3) Basophils (%) (Auto) 0% (0-3) Neutrophils # (Auto) 19.3x10^3uL (1.8-7.7) Lymphocytes # (Auto) 0.5x10^3/uL (1.0-4.8) Monocytes # (Auto) 1.3x10^3/uL (0.0-1.1) Eosinophils # (Auto) 0.0x10^3/uL (0.0-0.7) Basophils # (Auto) 0.0x10^3/uL (0.0-0.2) Sodium Level 142mmol/L (136-145) Potassium Level 4.6mmol/L (3.5-5.1) Chloride Level 108mmol/L (98-107) Carbon Dioxide Level 22mmol/L (21-32) Anion Gap 12 (6-14) Blood Urea Nitrogen 31mg/dL (8-26) Creatinine 1.0mg/dL (0.7-1.3) Estimated GFR (Cockcroft-Gault) 74.5 BUN/Creatinine Ratio 31 (6-20) Glucose Level 339mg/dL (70-99) Calcium Level 8.7mg/dL (8.5-10.1) Total Bilirubin 0.6mg/dL (0.2-1.0) Aspartate Amino Transf (AST/SGOT) 353U/L (15-37) Alanine Aminotransferase (ALT/SGPT) 905U/L (16-63) Alkaline Phosphatase 233U/L (46-116) Total Protein 6.4g/dL (6.4-8.2) Albumin 1.8g/dL (3.4-5.0) Albumin/Globulin Ratio 0.4 (1.0-1.7) Triglycerides Level 97mg/dL (0-150) Cholesterol Level 127mg/dL (0-200) LDL Cholesterol, Calculated 87mg/dL (0-100) VLDL Cholesterol, Calculated 19mg/dL (0-40) HDL Cholesterol 21mg/dL (40-60) Cholesterol/HDL Ratio 6.0 Microbiology 07/28/16 Blood Culture - Preliminary, Resulted NO GROWTH AFTER 1 DAY Medications Current Medications Naloxone HCl 0.4 mg 0.4 mg 1X ONCE IV Last administered on 07/28/16 21:30; Start 07/28/16 at 21:30; Stop 07/28/16 at 21:31; Status DC Sodium Chloride 1,000 ml @ 1,000 mls/hr 1X ONCE IV Last administered on 21:30; Start 07/28/16 at 21:30; Stop 07/28/16 at 22:29; Status DC Ceftriaxone Sodium 1 gm/ Sodium Chloride 50 ml @ 100 mls/hr Q24H IV Last administered on 07/29/16 21:26; Start 07/29/16 at 21:00 Ceftriaxone Sodium 50 ml @ 100 mls/hr 1X ONCE IV Last administered on 21:35; Start 07/28/16 at 22:00; Stop 07/28/16 at 22:29; Status DC Heparin Sodium/ Dextrose 500 ml @ 0 mls/hr CONT PRN IV SEE I/O RECORD Last administered on 07/29/16 21:46; Start 07/28/16 at 22:00; Stop 07/30/16 at 07:59; Status DC Heparin Sodium (Porcine) 2,200 unit PRN Q6HRS PRN IV FOR UFH LEVEL LESS THAN 0.2 Last administered on 07/28/16 23:14; Start 07/28/16 at 22:00; Stop 07/30/16 at 08:00; Status DC Ondansetron HCl 4 mg 4 mg PRN Q8HRS PRN IV NAUSEA/VOMITING; Start 07/28/16 at 22 :15; Stop 07/29/16 at 22:14; Status DC Sodium Chloride 1,000 ml @ 125 mls/hr Q8H IV Last administered on 07/29/16 08: 16; Start 07/28/16 at 22:01; Stop 07/29/16 at 13:04; Status DC Metronidazole (FLAGYL 500Mmg PREMIX) 100 ml @ 100 mls/hr Q12HR IV Last administered on 07/30/16 09:21; Start 07/28/16 at 22:30 Hydralazine HCl (Apresoline) 10 mg PRN Q4HRS PRN IVP ELEVATED BP, SEE COMMENTS ; Start 07/29/16 at 03:00 Insulin Aspart (Novolog) 0-9 UNITS TIDWMEALS SQ Last administered on 07/30/16 09:25; Start 07/29/16 at 08:00 Dextrose 12.5 gm PRN Q15MIN PRN IV SEE COMMENTS; Start 07/29/16 at 03:00 Insulin Aspart (Novolog) 8 units 1X ONCE SQ Last administered on 07/29/16 08: 20; Start 07/29/16 at 08:30; Stop 07/29/16 at 08:31; Status DC Morphine Sulfate 2 mg PRN Q2HR PRN IV PAIN Last administered on 07/30/16 05:45 ; Start 07/29/16 at 09:00 Aspirin (Aspirin) 300 mg 1X ONCE OH Last administered on 07/29/16 13:17; Start 07/29/16 at 10:30; Stop 07/29/16 at 10:31; Status DC Heparin Sodium (Porcine) 1,800 unit PRN Q6HRS PRN IV FOR UFH LEVEL LESS THAN 0.2 Last administered on 07/29/16 10:35; Start 07/29/16 at 10:15; Stop 07/30/16 at 08:00; Status DC Metoprolol Tartrate (Lopressor) 5 mg Q6HRS IVP Last administered on 07/30/16 05 :45; Start 07/29/16 at 13:00 Aspirin 150 mg 150 mg DAILY OH Last administered on 07/30/16 09:21; Start at 09:00 Sodium Chloride 1,000 ml @ 60 mls/hr [id number] IV Last administered on 07/29/16 13:25; Start 07/29/16 at 13:30; Stop 07/29/16 at 13:31; Status DC Heparin Sodium (Porcine) 5000 unit/Sodium Chloride 505 ml @ 505 mls/hr 1X PERIOP ONCE IRR Last administered on 07/29/16 15:26; Start 07/29/16 at 14:00; Stop 07/29/16 at 14:59; Status DC Cefazolin Sodium/ Sodium Chloride (Ancef/Iv Sodium Chloride 0.9% 500ml Bag) 500 ml @ 500 mls/hr 1X PERIOP ONCE IRR Last administered on 07/29/16 15:26; Start 07/29/16 at 14:00; Stop 07/29/16 at 14:59; Status DC Gelatin (Gelfoam Size 12-7mm) 1 each STK-MED ONCE .ROUTE ; Start 07/29/16 at 13: 54; Stop 07/29/16 at 13:55; Status DC Cellulose 1 each STK-MED ONCE .ROUTE ; Start 07/29/16 at 13:54; Stop 07/29/16 at 13:55; Status DC Iohexol (Omnipaque 300 Mg/ml) 50 ml STK-MED ONCE .ROUTE ; Start 07/29/16 at 13:54 ; Stop 07/29/16 at 13:55; Status DC Gelatin (Gelfoam Size 100) 1 each STK-MED ONCE .ROUTE ; Start 07/29/16 at 13:54 ; Stop 07/29/16 at 13:55; Status DC Papaverine HCl 60 mg STK-MED ONCE .ROUTE ; Start 07/29/16 at 13:54; Stop 07/29/16 at 13:55; Status DC Thrombin 20,000 unit STK-MED ONCE TP ; Start 07/29/16 at 13:54; Stop 07/29/16 at 13:55; Status DC Midazolam HCl (Versed) 2 mg STK-MED ONCE .ROUTE ; Start 07/29/16 at 14:14; Stop 07/29/16 at 14:15; Status DC Fentanyl Citrate (Fentanyl 5ml Vial) 250 mcg STK-MED ONCE .ROUTE ; Start at 14:14; Stop 07/29/16 at 14:15; Status DC Rocuronium [place] 50 mg 50 mg STK-MED ONCE .ROUTE ; Start 07/29/16 at 14:14; Stop 07/29/16 at 14:15; Status DC Propofol (Diprivan) 20 ml @ As Directed STK-MED ONCE IV ; Start 07/29/16 at 14:14 ; Stop 07/29/16 at 14:15; Status DC Dexamethasone Sodium Phosphate (Decadron) 20 mg STK-MED ONCE .ROUTE ; Start 07/29 at 14:14; Stop 07/29/16 at 14:15; Status DC Ondansetron HCl (Zofran) 4 mg STK-MED ONCE .ROUTE ; Start 07/29/16 at 14:14; Stop 07/29/16 at 14:15; Status DC Lidocaine HCl 100 mg STK-MED ONCE .ROUTE ; Start 07/29/16 at 14:15; Stop 07/29/16 at 14:16; Status DC Succinylcholine Chloride (Anectine) 200 mg STK-MED ONCE .ROUTE ; Start 07/29/16 at 14:43; Stop 07/29/16 at 14:44; Status DC Phenylephrine HCl 1 mg STK-MED ONCE IV ; Start 07/29/16 at 15:01; Stop 07/29/16 at 15:02; Status DC Ephedrine Sulfate 50 mg 50 mg STK-MED ONCE .ROUTE ; Start 07/29/16 at 15:28; Stop 07/29/16 at 15:29; Status DC Insulin Human Regular/Sodium Chloride (Novolin R Vial/ Iv Normal Saline 150ml) 151.5 ml @ 7.29 mls/hr 1X ONCE IV ; Start 07/29/16 at 16:45; Stop 07/30/16 at 13 :31 Info (Anti-Coagulation Monitoring By Pharmacy) 1 each PRN DAILY PRN MC SEE COMMENTS Last administered on 07/29/16t 17:00; Start 07/29/16 at 17:00 Heparin Sodium (Porcine) 10,000 unit STK-MED ONCE .ROUTE ; Start 07/29/16 at 17: 02; Stop 07/29/16 at 17:03; Status DC Neostigmine Methylsulfate 5 mg STK-MED ONCE .ROUTE ; Start 07/29/16 at 20:52; Stop 07/29/16 at 20:53; Status DC Glycopyrrolate (Robinul) 1 mg STK-MED ONCE .ROUTE ; Start 07/29/16 at 20:52; Stop 07/29/16 at 20:53; Status DC Fentanyl Citrate (Fentanyl 2ml Vial) 50 mcg PRN Q5MIN PRN IV Acute Pain; Start 07/29/16 at 21:15; Stop 07/30/16 at 21:14 Morphine Sulfate 4 mg PRN Q10MIN PRN IV Moderate Pain; Start 07/29/16 at 21:15; Stop 07/30/16 at 21:14 Hydromorphone HCl (Dilaudid) 0.4 mg PRN Q10MIN PRN IV Moderate to severe pain; Start 07/29/16 at 21:15; Stop 07/30/16 at 21:14 Meperidine HCl (Demerol) 12.5 mg PRN Q5MIN PRN IV SHIVERING; Start 07/29/16 at 21:15; Stop 07/30/16 at 00:00; Status DC Prochlorperazine Edisylate (Compazine) 5 mg PRN Q6HRS PRN IV Nausea/Vomiting, 1st Choice; Start 07/29/16 at 21:15; Stop 07/30/16 at 21:14 Diphenhydramine HCl 12.5 mg 12.5 mg PRN Q2HR PRN IV ITCHING; Start 07/29/16 at 21:15; Stop 07/30/16 at 21:14 Sodium Chloride (Iv Sodium Chloride 0.45%) 1,000 ml @ 100 mls/hr Q10H IV Last administered on 07/29/16t 21:59; Start 07/29/16 at 22:00; Stop 07/30/16 at 09:41; Status DC Cefazolin Sodium/ Dextrose (Ancef 2gm Premix) 2 gm STK-MED ONCE IV ; Start at 17:35; Stop 07/30/16 at 08:53; Status DC Pantoprazole Sodium 40 mg 40 mg [id number] IVP ; Start 07/30/16 at 18:00 Sodium Chloride 1,000 ml @ 60 mls/hr [id number] IV Last administered on 07/30/16t 09:47; Start 07/30/16 at 09:45 Cefazolin Sodium/ Sodium Chloride (Ancef/Iv Sodium Chloride 0.9% 500ml Bag) 500 ml @ 500 mls/hr 1X PERIOP ONCE IRR ; Start 07/31/16 at 06:00; Stop 07/31/16 at 06:59 Active Scripts Active Reported Hydrocodone-Apap 5-325 (Hydrocodone Bit/Acetaminophen) 1 Each Tablet 1 Tab PO Q4HRS PRN Vitals/I & O Vital Sign - Last 24 Hours 07/29/16 07/29/16 07/29/16 07/29/16 13:00 13:18 14:00 21:01 Temp 97.4 97.4 Pulse 69 79 73 92 Resp 25 16 22 B/P 150/69 154/76 138/72 142/67 Pulse Ox 94 92 97 O2 Delivery Room Air Room Air Simple Mask O2 Flow Rate 8.0 07/29/16 07/29/16 07/29/16 07/29/16 21:05 21:05 21:16 21:31 Pulse 94 93 98 Resp 20 22 B/P 116/68 116/68 156/68 Pulse Ox 99 99 O2 Delivery Mask Simple Mask Simple Mask O2 Flow Rate 10.0 8.0 8.0 07/29/16 07/29/16 07/29/16 07/29/16 21:46 22:02 23:00 23:40 Temp 97.0 97.0 Pulse 99 98 95 88 Resp 20 20 17 B/P 150/73 130/76 148/62 153/59 Pulse Ox 98 98 93 O2 Delivery Nasal Cannula Nasal Cannula Nasal Cannula O2 Flow Rate 2.0 2.0 2.0 07/29/16 07/29/16 07/29/16 07/30/16 23:41 23:59 23:59 00:00 Temp 97.6 97.6 Pulse 76 76 Resp 17 27 B/P 141/55 141/55 Pulse Ox 97 98 O2 Delivery Nasal Cannula Nasal Cannula Nasal Cannula O2 Flow Rate 2.0 2.0 2.0 07/30/16 07/30/16 07/30/16 07/30/16 01:00 02:00 02:57 03:00 Pulse 76 73 80 Resp 26 14 18 16 B/P 149/60 142/61 143/62 Pulse Ox 98 93 94 93 O2 Delivery Nasal Cannula Room Air Room Air Room Air O2 Flow Rate 2.0 07/30/16 07/30/16 07/30/16 07/30/16 04:00 04:00 04:00 05:00 Temp 97.8 97.8 Pulse 78 78 86 Resp 15 16 B/P 149/76 149/76 154/63 Pulse Ox 94 93 O2 Delivery Room Air Room Air Room Air 07/30/16 07/30/16 07/30/16 07/30/16 05:45 05:45 06:00 06:15 Pulse 84 70 Resp 10 24 14 B/P 159/64 148/61 Pulse Ox 94 91 95 O2 Delivery Room Air Room Air Room Air 07/30/16 07/30/16 07/30/16 07/30/16 07:00 08:00 08:00 09:00 Temp 98.4 98.4 Pulse 84 81 86 Resp 23 22 26 B/P 149/98 149/82 147/75 Pulse Ox 93 94 95 O2 Delivery Room Air Room Air Room Air Room Air 07/30/16 07/30/16 10:00 11:00 Pulse 87 86 Resp 24 24 B/P 151/79 158/74 Pulse Ox 90 95 O2 Delivery Room Air Nasal Cannula O2 Flow Rate 2.0 Intake and Output 07/29/16 07/29/16 07/30/16 15:00 23:00 07:00 Intake Total 2250 ml 372 ml Output Total 600 ml 825 ml 900 ml Balance -600 ml 1425 ml -528 ml SRAVAN ROMANO MD Jul 30, 2016 12:43
[2016-07-30] MEDS ORDERED: INSULIN ASPART 300 UNITS/3 ML INSULN.PEN SQ ONE (12:45)
[2016-07-30] MEDS: INSULIN DETEMIR 300 UNITS/3 ML INSULN.PEN. SQ SCH (12:57)
[2016-07-30] MEDS: AA 4.25%/CALCIUM/LYTES/D5W 1,000 ML IV SCH (15:32)
--- NOTE | 2016-07-30 17:39 | PDOC2 ---
NEUROLOGY CONSULT Date of Admission Date of Admission DATE: 07/30/16 TIME: 17:24 Reason for Consult Reason for Consult: IMPRESSION: Metabolic encephalopathy. Lethargy. Hyperglycemia, glucose 455 NSTEMI? CAD S/p CABG. PVD DM HTN HLD CKD Elevated hepatic function. Left LE surgery. RECOMMENDATIONS/PLAN: HCT performed no acute findings. Lab: see orders. Treat medical, cardiac and surgical diseases. Neurology will follow. HISTORY OF THE PRESENT ILLNESS: 66-y-old male patient with above medical diseases had MS changes and decreased response and was brought to the ER of [facility]. Further evaluation showed left LE vascular disease. neurology was called for consultation due to MS changes. PAST MEDICAL HISTORY: Please see above. PAST SURGERY HISTORY: LE vascular surgery in this admission. ALLERGY: Reviewed. MEDICATIONS: Refer to [facility] FAMILY HISTORY: Non contributory. SOCIAL HISTORY: Unknown hx of his smoking, drinking, and illicit drug use.status. REVIEW OF SYSTEMS: Constitutional: No malnutrition, weight loss, cachexia. Head: No traumatic brain or head injury. Skin: No edema, or rash. Ear: No infection, tinnitus. Eyes: No vision loss or color blindness. Nose: No bleeding or purulent discharges. Hearing: No hearing decrease. Neck: No injury. Cardiac: CAD, s/p CABG, HTN, HLD. Pulmonary: No COPD. GI: No GI ulcer, GI bleeding. Urinary/genital: UTI. Endocrinologic: Diabetes Mellitus. Skeletomuscular: Right toe amputation. Neurological: see HP. Psychiatric: Unknown drug use/abuse. Otherwise, not -fynjb review of systems. PHYSICAL EXAMINATION: General appearance is in acute distress. HEENT: Normocephalic and nontraumatic. Eyes, nose, ears, and throat are unremarkable. Neck is supple. No lymphadenopathy. No crepitus. Cardiovascular: S1, S2, regular rate and rhythm. Pulmonary: Clear to auscultation bilaterally. Abdomen: Bowel sounds are positive. Extremities: No rash, lesions. No restriction of range of motion NEUROLOGICAL EXAMINATION: Eyes open. Unable to communicate. Not oriented to time, place and person. PERRL. EOMI very slow. CN: no acute focal findings. Muscle tone: fluctuated. Muscle strength: moves all extremities. DTR: 1-2 Plantar reflex: Right tor amputation. Left LE wrapped. Gait: Unable to walk. Sensory exam: withdraws to stimuli. Not able to access cerebellar signs. Current Medications Current Medications Current Medications Naloxone HCl 0.4 mg 0.4 mg 1X ONCE IV Last administered on 07/28/16 21:30; Start 07/28/16 at 21:30; Stop 07/28/16 at 21:31; Status DC Sodium Chloride 1,000 ml @ 1,000 mls/hr 1X ONCE IV Last administered on 21:30; Start 07/28/16 at 21:30; Stop 07/28/16 at 22:29; Status DC Ceftriaxone Sodium 1 gm/ Sodium Chloride 50 ml @ 100 mls/hr Q24H IV Last administered on 07/29/16 21:26; Start 07/29/16 at 21:00 Ceftriaxone Sodium 50 ml @ 100 mls/hr 1X ONCE IV Last administered on 21:35; Start 07/28/16 at 22:00; Stop 07/28/16 at 22:29; Status DC Heparin Sodium/ Dextrose 500 ml @ 0 mls/hr CONT PRN IV SEE I/O RECORD Last administered on 07/29/16 21:46; Start 07/28/16 at 22:00; Stop 07/30/16 at 07:59; Status DC Heparin Sodium (Porcine) 2,200 unit PRN Q6HRS PRN IV FOR UFH LEVEL LESS THAN 0.2 Last administered on 07/28/16 23:14; Start 07/28/16 at 22:00; Stop 07/30/16 at 08:00; Status DC Ondansetron HCl 4 mg 4 mg PRN Q8HRS PRN IV NAUSEA/VOMITING; Start 07/28/16 at 22 :15; Stop 07/29/16 at 22:14; Status DC Sodium Chloride 1,000 ml @ 125 mls/hr Q8H IV Last administered on 07/29/16 08: 16; Start 07/28/16 at 22:01; Stop 07/29/16 at 13:04; Status DC Metronidazole (FLAGYL 500Mmg PREMIX) 100 ml @ 100 mls/hr Q12HR IV Last administered on 07/30/16 09:21; Start 07/28/16 at 22:30 Hydralazine HCl (Apresoline) 10 mg PRN Q4HRS PRN IVP ELEVATED BP, SEE COMMENTS ; Start 07/29/16 at 03:00 Insulin Aspart (Novolog) 0-9 UNITS TIDWMEALS SQ Last administered on 07/30/16 12:48; Start 07/29/16 at 08:00 Dextrose 12.5 gm PRN Q15MIN PRN IV SEE COMMENTS; Start 07/29/16 at 03:00 Insulin Aspart (Novolog) 8 units 1X ONCE SQ Last administered on 07/29/16 08: 20; Start 07/29/16 at 08:30; Stop 07/29/16 at 08:31; Status DC Morphine Sulfate 2 mg PRN Q2HR PRN IV PAIN Last administered on 07/30/16 05:45 ; Start 07/29/16 at 09:00 Aspirin (Aspirin) 300 mg 1X ONCE MS Last administered on 07/29/16 13:17; Start 07/29/16 at 10:30; Stop 07/29/16 at 10:31; Status DC Heparin Sodium (Porcine) 1,800 unit PRN Q6HRS PRN IV FOR UFH LEVEL LESS THAN 0.2 Last administered on 07/29/16 10:35; Start 07/29/16 at 10:15; Stop 07/30/16 at 08:00; Status DC Metoprolol Tartrate (Lopressor) 5 mg Q6HRS IVP Last administered on 07/30/16 12 :49; Start 07/29/16 at 13:00 Aspirin 150 mg 150 mg DAILY MS Last administered on 07/30/16 09:21; Start at 09:00 Sodium Chloride 1,000 ml @ 60 mls/hr [id number] IV Last administered on 07/29/16 13:25; Start 07/29/16 at 13:30; Stop 07/29/16 at 13:31; Status DC Heparin Sodium (Porcine) 5000 unit/Sodium Chloride 505 ml @ 505 mls/hr 1X PERIOP ONCE IRR Last administered on 07/29/16 15:26; Start 07/29/16 at 14:00; Stop 07/29/16 at 14:59; Status DC Cefazolin Sodium/ Sodium Chloride (Ancef/Iv Sodium Chloride 0.9% 500ml Bag) 500 ml @ 500 mls/hr 1X PERIOP ONCE IRR Last administered on 3/7/17at 15:26; Start 07/29/16 at 14:00; Stop 07/29/16 at 14:59; Status DC Gelatin (Gelfoam Size 12-7mm) 1 each STK-MED ONCE .ROUTE ; Start 07/29/16 at 13: 54; Stop 07/29/16 at 13:55; Status DC Cellulose 1 each STK-MED ONCE .ROUTE ; Start 07/29/16 at 13:54; Stop 07/29/16 at 13:55; Status DC Iohexol (Omnipaque 300 Mg/ml) 50 ml STK-MED ONCE .ROUTE ; Start 07/29/16 at 13:54 ; Stop 07/29/16 at 13:55; Status DC Gelatin (Gelfoam Size 100) 1 each STK-MED ONCE .ROUTE ; Start 07/29/16 at 13:54 ; Stop 07/29/16 at 13:55; Status DC Papaverine HCl 60 mg STK-MED ONCE .ROUTE ; Start 07/29/16 at 13:54; Stop 07/29/16 at 13:55; Status DC Thrombin 20,000 unit STK-MED ONCE TP ; Start 07/29/16 at 13:54; Stop 07/29/16 at 13:55; Status DC Midazolam HCl (Versed) 2 mg STK-MED ONCE .ROUTE ; Start 07/29/16 at 14:14; Stop 07/29/16 at 14:15; Status DC Fentanyl Citrate (Fentanyl 5ml Vial) 250 mcg STK-MED ONCE .ROUTE ; Start at 14:14; Stop 07/29/16 at 14:15; Status DC Rocuronium Rangely 50 mg 50 mg STK-MED ONCE .ROUTE ; Start 07/29/16 at 14:14; Stop 07/29/16 at 14:15; Status DC Propofol (Diprivan) 20 ml @ As Directed STK-MED ONCE IV ; Start 07/29/16 at 14:14 ; Stop 07/29/16 at 14:15; Status DC Dexamethasone Sodium Phosphate (Decadron) 20 mg STK-MED ONCE .ROUTE ; Start 07/29 at 14:14; Stop 07/29/16 at 14:15; Status DC Ondansetron HCl (Zofran) 4 mg STK-MED ONCE .ROUTE ; Start 07/29/16 at 14:14; Stop 07/29/16 at 14:15; Status DC Lidocaine HCl 100 mg STK-MED ONCE .ROUTE ; Start 07/29/16 at 14:15; Stop 07/29/16 at 14:16; Status DC Succinylcholine Chloride (Anectine) 200 mg STK-MED ONCE .ROUTE ; Start 07/29/16 at 14:43; Stop 07/29/16 at 14:44; Status DC Phenylephrine HCl 1 mg STK-MED ONCE IV ; Start 07/29/16 at 15:01; Stop 07/29/16 at 15:02; Status DC Ephedrine Sulfate 50 mg 50 mg STK-MED ONCE .ROUTE ; Start 07/29/16 at 15:28; Stop 07/29/16 at 15:29; Status DC Insulin Human Regular/Sodium Chloride (Novolin R Vial/ Iv Normal Saline 150ml) 151.5 ml @ 7.29 mls/hr 1X ONCE IV ; Start 07/29/16 at 16:45; Stop 07/30/16 at 12 :52; Status DC Info (Anti-Coagulation Monitoring By Pharmacy) 1 each PRN DAILY PRN MC SEE COMMENTS Last administered on 07/29/16t 17:00; Start 07/29/16 at 17:00; Stop at 12:51; Status DC Heparin Sodium (Porcine) 10,000 unit STK-MED ONCE .ROUTE ; Start 07/29/16 at 17: 02; Stop 07/29/16 at 17:03; Status DC Neostigmine Methylsulfate 5 mg STK-MED ONCE .ROUTE ; Start 07/29/16 at 20:52; Stop 07/29/16 at 20:53; Status DC Glycopyrrolate (Robinul) 1 mg STK-MED ONCE .ROUTE ; Start 07/29/16 at 20:52; Stop 07/29/16 at 20:53; Status DC Fentanyl Citrate (Fentanyl 2ml Vial) 50 mcg PRN Q5MIN PRN IV Acute Pain; Start 07/29/16 at 21:15; Stop 07/30/16 at 21:14 Morphine Sulfate 4 mg PRN Q10MIN PRN IV Moderate Pain; Start 07/29/16 at 21:15; Stop 07/30/16 at 21:14 Hydromorphone HCl (Dilaudid) 0.4 mg PRN Q10MIN PRN IV Moderate to severe pain; Start 07/29/16 at 21:15; Stop 07/30/16 at 21:14 Meperidine HCl (Demerol) 12.5 mg PRN Q5MIN PRN IV SHIVERING; Start 07/29/16 at 21:15; Stop 07/30/16 at 00:00; Status DC Prochlorperazine Edisylate (Compazine) 5 mg PRN Q6HRS PRN IV Nausea/Vomiting, 1st Choice; Start 07/29/16 at 21:15; Stop 07/30/16 at 21:14 Diphenhydramine HCl 12.5 mg 12.5 mg PRN Q2HR PRN IV ITCHING; Start 07/29/16 at 21:15; Stop 07/30/16 at 21:14 Sodium Chloride (Iv Sodium Chloride 0.45%) 1,000 ml @ 100 mls/hr Q10H IV Last administered on 07/29/16 21:59; Start 07/29/16 at 22:00; Stop 07/30/16 at 09:41; Status DC Cefazolin Sodium/ Dextrose (Ancef 2gm Premix) 2 gm STK-MED ONCE IV ; Start at 17:35; Stop 07/30/16 at 08:53; Status DC Pantoprazole Sodium 40 mg 40 mg [id number] IVP ; Start 07/30/16 at 18:00 Sodium Chloride 1,000 ml @ 60 mls/hr [id number] IV Last administered on 07/30/16 09:47; Start 07/30/16 at 09:45; Stop 07/30/16 at 12:47; Status DC Cefazolin Sodium/ Sodium Chloride (Ancef/Iv Sodium Chloride 0.9% 500ml Bag) 500 ml @ 500 mls/hr 1X PERIOP ONCE IRR ; Start 07/31/16 at 06:00; Stop 07/31/16 at 06:59 Insulin Detemir (Levemir) 15 units [id number] SQ Last administered on 07/30/16 12: 57; Start 07/30/16 at 13:00 Insulin Aspart 12 units 12 units 1X ONCE SQ ; Start 07/30/16 at 12:45; Stop 07/30 at 12:47; Status DC Amino Acids/ Electrolytes/ Dextrose (Clinimix E 4.25%-5% Solution) 1,000 ml @ 80 mls/hr [id number] IV Last administered on 07/30/16t 15:32; Start 07/30/16 at 13: 00 Ondansetron HCl (Zofran) 4 mg PRN Q6HRS PRN IV Nausea; Start 07/31/16 at 07:00; Stop 08/01/16 at 06:59 Fentanyl Citrate (Fentanyl 2ml Vial) 25 mcg PRN Q5MIN PRN IV MILD PAIN; Start 07/31/16 at 07:00; Stop 08/01/16 at 06:59 Fentanyl Citrate (Fentanyl 2ml Vial) 50 mcg PRN Q5MIN PRN IV MODERATE PAIN; Start 07/31/16 at 07:00; Stop 08/01/16 at 06:59 Morphine Sulfate 1 mg 1 mg PRN Q10MIN PRN IV SEVERE PAIN; Start 07/31/16 at 07: 00; Stop 08/01/16 at 06:59 Lactated Ringer's (Iv Lactated Ringers) 1,000 ml @ 30 mls/hr Q24H IV ; Start at 07:00; Stop 07/31/16 at 18:59 Lidocaine HCl 2 ml 1X PRN PRN ID IV START; Start 07/31/16 at 07:00; Stop at 06:59 Hydromorphone HCl (Dilaudid) 0.5 mg PRN Q10MIN PRN IV SEVERE PAIN, Second choice; Start 07/31/16 at 07:00; Stop 08/01/16 at 06:59 Prochlorperazine Edisylate (Compazine) 5 mg PACU PRN PRN IV NAUSEA; Start at 07:00; Stop 08/01/16 at 06:59 Active Scripts Active Reported Hydrocodone-Apap 5-325 (Hydrocodone Bit/Acetaminophen) 1 Each Tablet 1 Tab PO Q4HRS PRN Allergies Allergies: Coded Allergies: No Known Drug Allergies (Unverified , 07/29/16) Vitals VITALS Vital Signs Date Time Temp Pulse Resp B/P Pulse Ox O2 Delivery O2 Flow Rate FiO2 07/30/16 15:00 63 22 135/71 97 Nasal Cannula 2.0 07/30/16 12:00 98.1 98.1 Labs Labs Laboratory Tests Test 07/28/16 19:30 07/28/16 21:24 07/29/16 00:08 07/29/16 01:00 White Blood Count 21.5x10^3/uL (4.0-11.0) Red Blood Count 4.84x10^6/uL (4.30-5.70) Hemoglobin 13.6g/dL (13.0-17.5) Hematocrit 42.8% (39.0-53.0) Mean Corpuscular Volume 88fL (79-100) Mean Corpuscular Hemoglobin 28pg (25-35) Mean Corpuscular Hemoglobin Concent 32g/dL (31-37) Red Cell Distribution Width 15.1% (11.5-14.5) Platelet Count 134x10^3/uL (140-400) Neutrophils (%) (Auto) 87% (31-73) Lymphocytes (%) (Auto) 3% (24-48) Monocytes (%) (Auto) 10% (0-9) Eosinophils (%) (Auto) 0% (0-3) Basophils (%) (Auto) 0% (0-3) Neutrophils # (Auto) 18.7x10^3uL (1.8-7.7) Lymphocytes # (Auto) 0.7x10^3/uL (1.0-4.8) Monocytes # (Auto) 2.1x10^3/uL (0.0-1.1) Eosinophils # (Auto) 0.0x10^3/uL (0.0-0.7) Basophils # (Auto) 0.1x10^3/uL (0.0-0.2) Segmented Neutrophils % 88% (35-66) Lymphocytes % 1% (24-48) Monocytes % 11% (0-10) Platelet Estimate Decreased (ADEQUATE) Giant Platelets Occ Polychromasia Slight Hypochromasia Slight Ovalocytes Occ Urine Collection Type Unknown Urine Color Yellow Urine Clarity Clear Urine pH 6.0 Urine Specific [place] >=1.030 Urine Protein 30mg/dL (NEG-TRACE) Urine Glucose (UA) >=1000mg/dL (NEG) Urine Ketones (Stick) 15mg/dL (NEG) Urine Blood Small (NEG) Urine Nitrite Negative (NEG) Urine Bilirubin Small (NEG) Urine Urobilinogen Dipstick 0.2mg/dL (0.2 mg/dL) Urine Leukocyte Esterase Negative (NEG) Urine RBC Occ/HPF (0-2) Urine WBC Occ/HPF (0-4) Urine Squamous Epithelial Cells Few/LPF Urine Bacteria 0/HPF (0-FEW) Urine Hyaline Casts Many/HPF Sodium Level 138mmol/L (136-145) Potassium Level 4.6mmol/L (3.5-5.1) Chloride Level 99mmol/L (98-107) Carbon Dioxide Level 25mmol/L (21-32) Anion Gap 14 (6-14) Blood Urea Nitrogen 41mg/dL (8-26) Creatinine 1.5mg/dL (0.7-1.3) Estimated GFR (Cockcroft-Gault) 46.7 BUN/Creatinine Ratio 27 (6-20) Glucose Level 455mg/dL (70-99) Calcium Level 10.1mg/dL (8.5-10.1) Total Bilirubin 1.0mg/dL (0.2-1.0) Aspartate Amino Transf (AST/SGOT) 1157U/L (15-37) Alanine Aminotransferase (ALT/SGPT) 2219U/L (16-63) Alkaline Phosphatase 296U/L (46-116) Troponin I Quantitative 1.239ng/mL (0.000-0.055) Total Protein 7.9g/dL (6.4-8.2) Albumin 2.4g/dL (3.4-5.0) Albumin/Globulin Ratio 0.4 (1.0-1.7) Urine Opiates Screen Pos (NEG) Urine Methadone Screen Neg (NEG) Urine Barbiturates Neg (NEG) Urine Phencyclidine Screen Neg (NEG) Urine Amphetamine/Methamphetamine Neg (NEG) Urine Benzodiazepines Screen Neg (NEG) Urine Cocaine Screen Neg (NEG) Urine Cannabinoids Screen Neg (NEG) Urine Ethyl Alcohol Neg (NEG) Lactic Acid Level 1.9mmol/L (0.4-2.0) Ammonia 11mcmol/L (11-34) Lipase 76U/L (73-393) Glucose (Fingerstick) 358mg/dL (70-99) Nasal Screen MRSA (PCR) Negative (Negative) Test 07/29/16 04:20 07/29/16 05:10 07/29/16 08:10 07/29/16 09:31 White Blood Count 21.1x10^3/uL (4.0-11.0) Red Blood Count 4.48x10^6/uL (4.30-5.70) Hemoglobin 12.7g/dL (13.0-17.5) Hematocrit 39.4% (39.0-53.0) Mean Corpuscular Volume 88fL (79-100) Mean Corpuscular Hemoglobin 28pg (25-35) Mean Corpuscular Hemoglobin Concent 32g/dL (31-37) Red Cell Distribution Width 15.1% (11.5-14.5) Platelet Count 113x10^3/uL (140-400) Neutrophils (%) (Auto) 86% (31-73) Lymphocytes (%) (Auto) 4% (24-48) Monocytes (%) (Auto) 10% (0-9) Eosinophils (%) (Auto) 0% (0-3) Basophils (%) (Auto) 0% (0-3) Neutrophils # (Auto) 18.2x10^3uL (1.8-7.7) Lymphocytes # (Auto) 0.8x10^3/uL (1.0-4.8) Monocytes # (Auto) 2.0x10^3/uL (0.0-1.1) Eosinophils # (Auto) 0.0x10^3/uL (0.0-0.7) Basophils # (Auto) 0.0x10^3/uL (0.0-0.2) Sodium Level 142mmol/L (136-145) Potassium Level 4.6mmol/L (3.5-5.1) Chloride Level 106mmol/L (98-107) Carbon Dioxide Level 23mmol/L (21-32) Anion Gap 13 (6-14) Blood Urea Nitrogen 36mg/dL (8-26) Creatinine 1.3mg/dL (0.7-1.3) Estimated GFR (Cockcroft-Gault) 55.1 Glucose Level 370mg/dL (70-99) Hemoglobin A1c 11.7% (4.8-5.6) Calcium Level 9.0mg/dL (8.5-10.1) Troponin I Quantitative 1.124ng/mL (0.000-0.055) 1.070ng/mL (0.000-0.055) Thyroid Stimulating Hormone (TSH) 0.374uIU/mL (0.358-3.74) Prothrombin Time 17.3SEC (11.7-14.0) Prothromb Time International Ratio 1.5 (0.8-1.1) Heparin Anti-Xa Act, Unfractionated < 0.10IU/mL (0.30-0.70) Magnesium Level 2.5mg/dL (1.8-2.4) Creatine Kinase 514U/L (39-308) Creatine Kinase MB (Mass) 4.3ng/mL (0.0-3.6) Creatine Kinase MB Relative Index 0.8% (0-4) Acetaminophen Level < 2mcg/ml (10-30) Acetaminophen Last Dose Date 3-6 Acetaminophen Last Dose Time 0900 Glucose (Fingerstick) 278mg/dL (70-99) Test 07/29/16 12:10 07/29/16 12:12 07/29/16 16:30 07/29/16 21:13 Heparin Anti-Xa Act, Unfractionated 0.27IU/mL (0.30-0.70) Glucose (Fingerstick) 228mg/dL (70-99) 203mg/dL (70-99) 317mg/dL (70-99) Test 07/30/16 05:50 07/30/16 12:44 White Blood Count 21.1x10^3/uL (4.0-11.0) Red Blood Count 3.86x10^6/uL (4.30-5.70) Hemoglobin 10.8g/dL (13.0-17.5) Hematocrit 34.9% (39.0-53.0) Mean Corpuscular Volume 90fL (79-100) Mean Corpuscular Hemoglobin 28pg (25-35) Mean Corpuscular Hemoglobin Concent 31g/dL (31-37) Red Cell Distribution Width 14.8% (11.5-14.5) Platelet Count 127x10^3/uL (140-400) Neutrophils (%) (Auto) 91% (31-73) Lymphocytes (%) (Auto) 2% (24-48) Monocytes (%) (Auto) 6% (0-9) Eosinophils (%) (Auto) 0% (0-3) Basophils (%) (Auto) 0% (0-3) Neutrophils # (Auto) 19.3x10^3uL (1.8-7.7) Lymphocytes # (Auto) 0.5x10^3/uL (1.0-4.8) Monocytes # (Auto) 1.3x10^3/uL (0.0-1.1) Eosinophils # (Auto) 0.0x10^3/uL (0.0-0.7) Basophils # (Auto) 0.0x10^3/uL (0.0-0.2) Sodium Level 142mmol/L (136-145) Potassium Level 4.6mmol/L (3.5-5.1) Chloride Level 108mmol/L (98-107) Carbon Dioxide Level 22mmol/L (21-32) Anion Gap 12 (6-14) Blood Urea Nitrogen 31mg/dL (8-26) Creatinine 1.0mg/dL (0.7-1.3) Estimated GFR (Cockcroft-Gault) 74.5 BUN/Creatinine Ratio 31 (6-20) Glucose Level 339mg/dL (70-99) Calcium Level 8.7mg/dL (8.5-10.1) Total Bilirubin 0.6mg/dL (0.2-1.0) Aspartate Amino Transf (AST/SGOT) 353U/L (15-37) Alanine Aminotransferase (ALT/SGPT) 905U/L (16-63) Alkaline Phosphatase 233U/L (46-116) Total Protein 6.4g/dL (6.4-8.2) Albumin 1.8g/dL (3.4-5.0) Albumin/Globulin Ratio 0.4 (1.0-1.7) Triglycerides Level 97mg/dL (0-150) Cholesterol Level 127mg/dL (0-200) LDL Cholesterol, Calculated 87mg/dL (0-100) VLDL Cholesterol, Calculated 19mg/dL (0-40) HDL Cholesterol 21mg/dL (40-60) Cholesterol/HDL Ratio 6.0 Glucose (Fingerstick) 220mg/dL (70-99) Laboratory Tests Test 07/29/16 21:13 07/30/16 05:50 07/30/16 12:44 Glucose (Fingerstick) 317mg/dL (70-99) 220mg/dL (70-99) White Blood Count 21.1x10^3/uL (4.0-11.0) Red Blood Count 3.86x10^6/uL (4.30-5.70) Hemoglobin 10.8g/dL (13.0-17.5) Hematocrit 34.9% (39.0-53.0) Mean Corpuscular Volume 90fL (79-100) Mean Corpuscular Hemoglobin 28pg (25-35) Mean Corpuscular Hemoglobin Concent 31g/dL (31-37) Red Cell Distribution Width 14.8% (11.5-14.5) Platelet Count 127x10^3/uL (140-400) Neutrophils (%) (Auto) 91% (31-73) Lymphocytes (%) (Auto) 2% (24-48) Monocytes (%) (Auto) 6% (0-9) Eosinophils (%) (Auto) 0% (0-3) Basophils (%) (Auto) 0% (0-3) Neutrophils # (Auto) 19.3x10^3uL (1.8-7.7) Lymphocytes # (Auto) 0.5x10^3/uL (1.0-4.8) Monocytes # (Auto) 1.3x10^3/uL (0.0-1.1) Eosinophils # (Auto) 0.0x10^3/uL (0.0-0.7) Basophils # (Auto) 0.0x10^3/uL (0.0-0.2) Sodium Level 142mmol/L (136-145) Potassium Level 4.6mmol/L (3.5-5.1) Chloride Level 108mmol/L (98-107) Carbon Dioxide Level 22mmol/L (21-32) Anion Gap 12 (6-14) Blood Urea Nitrogen 31mg/dL (8-26) Creatinine 1.0mg/dL (0.7-1.3) Estimated GFR (Cockcroft-Gault) 74.5 BUN/Creatinine Ratio 31 (6-20) Glucose Level 339mg/dL (70-99) Calcium Level 8.7mg/dL (8.5-10.1) Total Bilirubin 0.6mg/dL (0.2-1.0) Aspartate Amino Transf (AST/SGOT) 353U/L (15-37) Alanine Aminotransferase (ALT/SGPT) 905U/L (16-63) Alkaline Phosphatase 233U/L (46-116) Total Protein 6.4g/dL (6.4-8.2) Albumin 1.8g/dL (3.4-5.0) Albumin/Globulin Ratio 0.4 (1.0-1.7) Triglycerides Level 97mg/dL (0-150) Cholesterol Level 127mg/dL (0-200) LDL Cholesterol, Calculated 87mg/dL (0-100) VLDL Cholesterol, Calculated 19mg/dL (0-40) HDL Cholesterol 21mg/dL (40-60) Cholesterol/HDL Ratio 6.0 HECTOR SAWYER MD Jul 30, 2016 17:39
[2016-07-30] MEDS: CEFTRIAXONE SODIUM 1 GM in IV NORMAL SALINE 50ML 50 ML IV SCH (21:39)
[2016-07-31] VITALS (7 sets, daily range): BP systolic 126–160; BP diastolic 58–75
[2016-07-31] MEDS: METOPROLOL TARTRATE 5 MG/5 ML VIAL. IVP SCH ×4 (03:57→19:03)
[2016-07-31] MEDS: AA 4.25%/CALCIUM/LYTES/D5W 1,000 ML IV SCH ×2 (04:49→14:00)
[2016-07-31 04:50] LABS: HEMATOCRIT 33.1 % (39.0-53.0); HEMOGLOBIN 10.7 g/dL (13.0-17.5); RED BLOOD COUNT 3.79 x10^6/uL (4.30-5.70); RED CELL DISTRIBUTION WIDTH 14.9 % (11.5-14.5); WHITE BLOOD COUNT 18.1 x10^3/uL (4.0-11.0)
[2016-07-31] MEDS ORDERED: CEFAZOLIN SODIUM 1 GM in IV NORMAL SALINE 500ML BAG 500 ML IRR ONE (06:00)
[2016-07-31] MEDS: PANTOPRAZOLE IV PUSH 40 MG VIAL. IVP SCH ×3 (06:00→18:33)
[2016-07-31] MEDS ORDERED: FENTANYL PF 100 MCG/2 ML VIAL. IV PRN ×2 (07:00)
[2016-07-31] MEDS ORDERED: ONDANSETRON PF 4 MG/2 ML VIAL. IV PRN (07:00)
[2016-07-31] MEDS ORDERED: MORPHINE SULFATE 2 MG/ML DISP.SYRIN. IV PRN (07:00)
[2016-07-31] MEDS ORDERED: HYDROMORPHONE 2 MG/ML VIAL. IV PRN (07:00)
[2016-07-31] MEDS ORDERED: LIDOCAINE 1% 1 ML SYRINGE. ID PRN (07:00)
[2016-07-31] MEDS ORDERED: PROCHLORPERAZINE 10 MG/2 ML VIAL. IV PRN (07:00)
[2016-07-31 08:00] LABS: GFR 74.5; POTASSIUM 4.7 mmol/L (3.5-5.1)
[2016-07-31 08:06] LABS: ALBUMIN 1.8 g/dL (3.4-5.0); ALBUMIN/GLOBULIN RATIO 0.4 (1.0-1.7); TOTAL BILIRUBIN 0.4 mg/dL (0.2-1.0); TOTAL PROTEIN 6.2 g/dL (6.4-8.2)
[2016-07-31 08:09] LABS: DIRECT BILIRUBIN 0.2 mg/dL (0.0-0.2)
[2016-07-31 08:10] LABS: INR 1.4 (0.8-1.1); PROTHROMBIN TIME PATIENT 16.6 SEC (11.7-14.0)
[2016-07-31] MEDS: INSULIN ASPART 300 UNITS/3 ML INSULN.PEN SQ SCH ×3 (08:50→17:51)
[2016-07-31] MEDS: ASPIRIN 300 MG SUPP.RECT PR SCH (09:00)
[2016-07-31] MEDS: INSULIN DETEMIR 300 UNITS/3 ML INSULN.PEN. SQ SCH (10:00)
--- NOTE | 2016-07-31 10:29 | PDOC ---
PROGRESS NOTES Chief Complaint Chief Complaint Acute metabolic encephalopathy - multifactorial Dm1, poor control NSTEMI, PVD, left leg for AKA vasomotor nephropathy, diabetes with severe chronic atherosclerosis, multilevel. VASCULOPATH History of Present Illness History of Present Illness poor pulses, left, failed vascular reconstruction due to inadequate tibial runoff and inadequate venous conduit. FOR LEFT AKA TODAY NOn verbal but wakes to voice [place] on Clinemex running BS on high side Hgb 1c 11 .7 PLAN: Start levemir 10 qhs Cont clinemex AKA later Labs post op chanel chaney RN Vitals Vitals Vital Signs Date Time Temp Pulse Resp B/P Pulse Ox O2 Delivery O2 Flow Rate FiO2 07/31/16 07:50 98.2 74 18 160/63 92 Nasal Cannula 2.0 98.2 Physical Exam General: Cooperative, No acute distress, Other (confuse) Heart: Regular rate, Normal S1, Normal S2, No murmurs, Other (2/6 systolic murmur to LLS border) Abdomen: Soft, No tenderness Extremities: Other (absent doppler arterial flow left pt artery, foot mottled, cannot passively dorsiflex foot.) Skin: No breakdown, Other (white scaly skin to bilateral feet) Labs LABS Laboratory Tests Test 07/30/16 12:44 07/30/16 17:23 07/31/16 00:30 07/31/16 04:15 Glucose (Fingerstick) 220mg/dL (70-99) 263mg/dL (70-99) 261mg/dL (70-99) White Blood Count 18.1x10^3/uL (4.0-11.0) Red Blood Count 3.79x10^6/uL (4.30-5.70) Hemoglobin 10.7g/dL (13.0-17.5) Hematocrit 33.1% (39.0-53.0) Mean Corpuscular Volume 87fL (79-100) Mean Corpuscular Hemoglobin 28pg (25-35) Mean Corpuscular Hemoglobin Concent 32g/dL (31-37) Red Cell Distribution Width 14.9% (11.5-14.5) Platelet Count 158x10^3/uL (140-400) Sodium Level 143mmol/L (136-145) Potassium Level 4.7mmol/L (3.5-5.1) Chloride Level 108mmol/L (98-107) Carbon Dioxide Level 26mmol/L (21-32) Anion Gap 9 (6-14) Blood Urea Nitrogen 29mg/dL (8-26) Creatinine 1.0mg/dL (0.7-1.3) Estimated GFR (Cockcroft-Gault) 74.5 BUN/Creatinine Ratio 29 (6-20) Glucose Level 310mg/dL (70-99) Calcium Level 9.0mg/dL (8.5-10.1) Total Bilirubin 0.4mg/dL (0.2-1.0) Direct Bilirubin 0.2mg/dL (0.0-0.2) Aspartate Amino Transf (AST/SGOT) 203U/L (15-37) Alanine Aminotransferase (ALT/SGPT) 639U/L (16-63) Alkaline Phosphatase 214U/L (46-116) Total Protein 6.2g/dL (6.4-8.2) Albumin 1.8g/dL (3.4-5.0) Albumin/Globulin Ratio 0.4 (1.0-1.7) Test 07/31/16 07:45 Prothrombin Time 16.6SEC (11.7-14.0) Prothromb Time International Ratio 1.4 (0.8-1.1) Review of Systems Review of Systems non verbal Assessment and Plan Assessmemt and Plan Problems Medical Problems: (1) Altered mental status Status: Acute (2) Dehydration Status: Acute (3) NSTEMI (non-ST elevated myocardial infarction) Status: Acute Problems: Comment Review of Relevant I have reviewed the following items chris (where applicable) has been applied. Labs Laboratory Tests Test 07/29/16 12:10 07/29/16 12:12 07/29/16 16:30 07/29/16 21:13 Heparin Anti-Xa Act, Unfractionated 0.27IU/mL (0.30-0.70) Glucose (Fingerstick) 228mg/dL (70-99) 203mg/dL (70-99) 317mg/dL (70-99) Test 07/30/16 05:50 07/30/16 12:44 07/30/16 17:23 07/31/16 00:30 White Blood Count 21.1x10^3/uL (4.0-11.0) Red Blood Count 3.86x10^6/uL (4.30-5.70) Hemoglobin 10.8g/dL (13.0-17.5) Hematocrit 34.9% (39.0-53.0) Mean Corpuscular Volume 90fL (79-100) Mean Corpuscular Hemoglobin 28pg (25-35) Mean Corpuscular Hemoglobin Concent 31g/dL (31-37) Red Cell Distribution Width 14.8% (11.5-14.5) Platelet Count 127x10^3/uL (140-400) Neutrophils (%) (Auto) 91% (31-73) Lymphocytes (%) (Auto) 2% (24-48) Monocytes (%) (Auto) 6% (0-9) Eosinophils (%) (Auto) 0% (0-3) Basophils (%) (Auto) 0% (0-3) Neutrophils # (Auto) 19.3x10^3uL (1.8-7.7) Lymphocytes # (Auto) 0.5x10^3/uL (1.0-4.8) Monocytes # (Auto) 1.3x10^3/uL (0.0-1.1) Eosinophils # (Auto) 0.0x10^3/uL (0.0-0.7) Basophils # (Auto) 0.0x10^3/uL (0.0-0.2) Sodium Level 142mmol/L (136-145) Potassium Level 4.6mmol/L (3.5-5.1) Chloride Level 108mmol/L (98-107) Carbon Dioxide Level 22mmol/L (21-32) Anion Gap 12 (6-14) Blood Urea Nitrogen 31mg/dL (8-26) Creatinine 1.0mg/dL (0.7-1.3) Estimated GFR (Cockcroft-Gault) 74.5 BUN/Creatinine Ratio 31 (6-20) Glucose Level 339mg/dL (70-99) Calcium Level 8.7mg/dL (8.5-10.1) Total Bilirubin 0.6mg/dL (0.2-1.0) Aspartate Amino Transf (AST/SGOT) 353U/L (15-37) Alanine Aminotransferase (ALT/SGPT) 905U/L (16-63) Alkaline Phosphatase 233U/L (46-116) Total Protein 6.4g/dL (6.4-8.2) Albumin 1.8g/dL (3.4-5.0) Albumin/Globulin Ratio 0.4 (1.0-1.7) Triglycerides Level 97mg/dL (0-150) Cholesterol Level 127mg/dL (0-200) LDL Cholesterol, Calculated 87mg/dL (0-100) VLDL Cholesterol, Calculated 19mg/dL (0-40) HDL Cholesterol 21mg/dL (40-60) Cholesterol/HDL Ratio 6.0 Glucose (Fingerstick) 220mg/dL (70-99) 263mg/dL (70-99) 261mg/dL (70-99) Test 07/31/16 04:15 07/31/16 07:45 White Blood Count 18.1x10^3/uL (4.0-11.0) Red Blood Count 3.79x10^6/uL (4.30-5.70) Hemoglobin 10.7g/dL (13.0-17.5) Hematocrit 33.1% (39.0-53.0) Mean Corpuscular Volume 87fL (79-100) Mean Corpuscular Hemoglobin 28pg (25-35) Mean Corpuscular Hemoglobin Concent 32g/dL (31-37) Red Cell Distribution Width 14.9% (11.5-14.5) Platelet Count 158x10^3/uL (140-400) Sodium Level 143mmol/L (136-145) Potassium Level 4.7mmol/L (3.5-5.1) Chloride Level 108mmol/L (98-107) Carbon Dioxide Level 26mmol/L (21-32) Anion Gap 9 (6-14) Blood Urea Nitrogen 29mg/dL (8-26) Creatinine 1.0mg/dL (0.7-1.3) Estimated GFR (Cockcroft-Gault) 74.5 BUN/Creatinine Ratio 29 (6-20) Glucose Level 310mg/dL (70-99) Calcium Level 9.0mg/dL (8.5-10.1) Total Bilirubin 0.4mg/dL (0.2-1.0) Direct Bilirubin 0.2mg/dL (0.0-0.2) Aspartate Amino Transf (AST/SGOT) 203U/L (15-37) Alanine Aminotransferase (ALT/SGPT) 639U/L (16-63) Alkaline Phosphatase 214U/L (46-116) Total Protein 6.2g/dL (6.4-8.2) Albumin 1.8g/dL (3.4-5.0) Albumin/Globulin Ratio 0.4 (1.0-1.7) Prothrombin Time 16.6SEC (11.7-14.0) Prothromb Time International Ratio 1.4 (0.8-1.1) Laboratory Tests Test 07/30/16 12:44 07/30/16 17:23 07/31/16 00:30 07/31/16 04:15 Glucose (Fingerstick) 220mg/dL (70-99) 263mg/dL (70-99) 261mg/dL (70-99) White Blood Count 18.1x10^3/uL (4.0-11.0) Red Blood Count 3.79x10^6/uL (4.30-5.70) Hemoglobin 10.7g/dL (13.0-17.5) Hematocrit 33.1% (39.0-53.0) Mean Corpuscular Volume 87fL (79-100) Mean Corpuscular Hemoglobin 28pg (25-35) Mean Corpuscular Hemoglobin Concent 32g/dL (31-37) Red Cell Distribution Width 14.9% (11.5-14.5) Platelet Count 158x10^3/uL (140-400) Sodium Level 143mmol/L (136-145) Potassium Level 4.7mmol/L (3.5-5.1) Chloride Level 108mmol/L (98-107) Carbon Dioxide Level 26mmol/L (21-32) Anion Gap 9 (6-14) Blood Urea Nitrogen 29mg/dL (8-26) Creatinine 1.0mg/dL (0.7-1.3) Estimated GFR (Cockcroft-Gault) 74.5 BUN/Creatinine Ratio 29 (6-20) Glucose Level 310mg/dL (70-99) Calcium Level 9.0mg/dL (8.5-10.1) Total Bilirubin 0.4mg/dL (0.2-1.0) Direct Bilirubin 0.2mg/dL (0.0-0.2) Aspartate Amino Transf (AST/SGOT) 203U/L (15-37) Alanine Aminotransferase (ALT/SGPT) 639U/L (16-63) Alkaline Phosphatase 214U/L (46-116) Total Protein 6.2g/dL (6.4-8.2) Albumin 1.8g/dL (3.4-5.0) Albumin/Globulin Ratio 0.4 (1.0-1.7) Test 07/31/16 07:45 Prothrombin Time 16.6SEC (11.7-14.0) Prothromb Time International Ratio 1.4 (0.8-1.1) Microbiology 07/28/16 Blood Culture - Preliminary, Resulted NO GROWTH AFTER 2 DAYS Medications Current Medications Naloxone HCl 0.4 mg 0.4 mg 1X ONCE IV Last administered on 07/28/16 21:30; Start 07/28/16 at 21:30; Stop 07/28/16 at 21:31; Status DC Sodium Chloride 1,000 ml @ 1,000 mls/hr 1X ONCE IV Last administered on 21:30; Start 07/28/16 at 21:30; Stop 07/28/16 at 22:29; Status DC Ceftriaxone Sodium 1 gm/ Sodium Chloride 50 ml @ 100 mls/hr Q24H IV Last administered on 07/30/16 21:39; Start 07/29/16 at 21:00 Ceftriaxone Sodium 50 ml @ 100 mls/hr 1X ONCE IV Last administered on 21:35; Start 07/28/16 at 22:00; Stop 07/28/16 at 22:29; Status DC Heparin Sodium/ Dextrose 500 ml @ 0 mls/hr CONT PRN IV SEE I/O RECORD Last administered on 07/29/16 21:46; Start 07/28/16 at 22:00; Stop 07/30/16 at 07:59; Status DC Heparin Sodium (Porcine) 2,200 unit PRN Q6HRS PRN IV FOR UFH LEVEL LESS THAN 0.2 Last administered on 07/28/16 23:14; Start 07/28/16 at 22:00; Stop 07/30/16 at 08:00; Status DC Ondansetron HCl 4 mg 4 mg PRN Q8HRS PRN IV NAUSEA/VOMITING; Start 07/28/16 at 22 :15; Stop 07/29/16 at 22:14; Status DC Sodium Chloride 1,000 ml @ 125 mls/hr Q8H IV Last administered on 07/29/16 08: 16; Start 07/28/16 at 22:01; Stop 07/29/16 at 13:04; Status DC Metronidazole (FLAGYL 500Mmg PREMIX) 100 ml @ 100 mls/hr Q12HR IV Last administered on 07/30/16 22:32; Start 07/28/16 at 22:30 Hydralazine HCl (Apresoline) 10 mg PRN Q4HRS PRN IVP ELEVATED BP, SEE COMMENTS ; Start 07/29/16 at 03:00 Insulin Aspart (Novolog) 0-9 UNITS TIDWMEALS SQ Last administered on 07/31/16 08:50; Start 07/29/16 at 08:00 Dextrose 12.5 gm PRN Q15MIN PRN IV SEE COMMENTS; Start 07/29/16 at 03:00 Insulin Aspart (Novolog) 8 units 1X ONCE SQ Last administered on 07/29/16 08: 20; Start 07/29/16 at 08:30; Stop 07/29/16 at 08:31; Status DC Morphine Sulfate 2 mg PRN Q2HR PRN IV PAIN Last administered on 07/30/16 05:45 ; Start 07/29/16 at 09:00 Aspirin (Aspirin) 300 mg 1X ONCE AL Last administered on 07/29/16 13:17; Start 07/29/16 at 10:30; Stop 07/29/16 at 10:31; Status DC Heparin Sodium (Porcine) 1,800 unit PRN Q6HRS PRN IV FOR UFH LEVEL LESS THAN 0.2 Last administered on 07/29/16 10:35; Start 07/29/16 at 10:15; Stop 07/30/16 at 08:00; Status DC Metoprolol Tartrate (Lopressor) 5 mg Q6HRS IVP Last administered on 07/31/16 06 :22; Start 07/29/16 at 13:00 Aspirin 150 mg 150 mg DAILY AL Last administered on 07/30/16 09:21; Start at 09:00 Sodium Chloride 1,000 ml @ 60 mls/hr [id number] IV Last administered on 07/29/16 13:25; Start 07/29/16 at 13:30; Stop 07/29/16 at 13:31; Status DC Heparin Sodium (Porcine) 5000 unit/Sodium Chloride 505 ml @ 505 mls/hr 1X PERIOP ONCE IRR Last administered on 07/29/16 15:26; Start 07/29/16 at 14:00; Stop 07/29/16 at 14:59; Status DC Cefazolin Sodium/ Sodium Chloride (Ancef/Iv Sodium Chloride 0.9% 500ml Bag) 500 ml @ 500 mls/hr 1X PERIOP ONCE IRR Last administered on 07/29/16 15:26; Start 07/29/16 at 14:00; Stop 07/29/16 at 14:59; Status DC Gelatin (Gelfoam Size 12-7mm) 1 each STK-MED ONCE .ROUTE ; Start 07/29/16 at 13: 54; Stop 07/29/16 at 13:55; Status DC Cellulose 1 each STK-MED ONCE .ROUTE ; Start 07/29/16 at 13:54; Stop 07/29/16 at 13:55; Status DC Iohexol (Omnipaque 300 Mg/ml) 50 ml STK-MED ONCE .ROUTE ; Start 07/29/16 at 13:54 ; Stop 07/29/16 at 13:55; Status DC Gelatin (Gelfoam Size 100) 1 each STK-MED ONCE .ROUTE ; Start 07/29/16 at 13:54 ; Stop 07/29/16 at 13:55; Status DC Papaverine HCl 60 mg STK-MED ONCE .ROUTE ; Start 07/29/16 at 13:54; Stop 07/29/16 at 13:55; Status DC Thrombin 20,000 unit STK-MED ONCE TP ; Start 07/29/16 at 13:54; Stop 07/29/16 at 13:55; Status DC Midazolam HCl (Versed) 2 mg STK-MED ONCE .ROUTE ; Start 07/29/16 at 14:14; Stop 07/29/16 at 14:15; Status DC Fentanyl Citrate (Fentanyl 5ml Vial) 250 mcg STK-MED ONCE .ROUTE ; Start at 14:14; Stop 07/29/16 at 14:15; Status DC Rocuronium Goode 50 mg 50 mg STK-MED ONCE .ROUTE ; Start 07/29/16 at 14:14; Stop 07/29/16 at 14:15; Status DC Propofol (Diprivan) 20 ml @ As Directed STK-MED ONCE IV ; Start 07/29/16 at 14:14 ; Stop 07/29/16 at 14:15; Status DC Dexamethasone Sodium Phosphate (Decadron) 20 mg STK-MED ONCE .ROUTE ; Start 07/29 at 14:14; Stop 07/29/16 at 14:15; Status DC Ondansetron HCl (Zofran) 4 mg STK-MED ONCE .ROUTE ; Start 07/29/16 at 14:14; Stop 07/29/16 at 14:15; Status DC Lidocaine HCl 100 mg STK-MED ONCE .ROUTE ; Start 07/29/16 at 14:15; Stop 07/29/16 at 14:16; Status DC Succinylcholine Chloride (Anectine) 200 mg STK-MED ONCE .ROUTE ; Start 07/29/16 at 14:43; Stop 07/29/16 at 14:44; Status DC Phenylephrine HCl 1 mg STK-MED ONCE IV ; Start 07/29/16 at 15:01; Stop 07/29/16 at 15:02; Status DC Ephedrine Sulfate 50 mg 50 mg STK-MED ONCE .ROUTE ; Start 07/29/16 at 15:28; Stop 07/29/16 at 15:29; Status DC Insulin Human Regular/Sodium Chloride (Novolin R Vial/ Iv Normal Saline 150ml) 151.5 ml @ 7.29 mls/hr 1X ONCE IV ; Start 07/29/16 at 16:45; Stop 07/30/16 at 12 :52; Status DC Info (Anti-Coagulation Monitoring By Pharmacy) 1 each PRN DAILY PRN MC SEE COMMENTS Last administered on 07/29/16t 17:00; Start 07/29/16 at 17:00; Stop at 12:51; Status DC Heparin Sodium (Porcine) 10,000 unit STK-MED ONCE .ROUTE ; Start 07/29/16 at 17: 02; Stop 07/29/16 at 17:03; Status DC Neostigmine Methylsulfate 5 mg STK-MED ONCE .ROUTE ; Start 07/29/16 at 20:52; Stop 07/29/16 at 20:53; Status DC Glycopyrrolate (Robinul) 1 mg STK-MED ONCE .ROUTE ; Start 07/29/16 at 20:52; Stop 07/29/16 at 20:53; Status DC Fentanyl Citrate (Fentanyl 2ml Vial) 50 mcg PRN Q5MIN PRN IV Acute Pain; Start 07/29/16 at 21:15; Stop 07/30/16 at 21:14; Status DC Morphine Sulfate 4 mg PRN Q10MIN PRN IV Moderate Pain; Start 07/29/16 at 21:15; Stop 07/30/16 at 21:14; Status DC Hydromorphone HCl (Dilaudid) 0.4 mg PRN Q10MIN PRN IV Moderate to severe pain; Start 07/29/16 at 21:15; Stop 07/30/16 at 21:14; Status DC Meperidine HCl (Demerol) 12.5 mg PRN Q5MIN PRN IV SHIVERING; Start 07/29/16 at 21:15; Stop 07/30/16 at 00:00; Status DC Prochlorperazine Edisylate (Compazine) 5 mg PRN Q6HRS PRN IV Nausea/Vomiting, 1st Choice; Start 07/29/16 at 21:15; Stop 07/30/16 at 21:14; Status DC Diphenhydramine HCl 12.5 mg 12.5 mg PRN Q2HR PRN IV ITCHING; Start 07/29/16 at 21:15; Stop 07/30/16 at 21:14; Status DC Sodium Chloride (Iv Sodium Chloride 0.45%) 1,000 ml @ 100 mls/hr Q10H IV Last administered on 07/29/16 21:59; Start 07/29/16 at 22:00; Stop 07/30/16 at 09:41; Status DC Cefazolin Sodium/ Dextrose (Ancef 2gm Premix) 2 gm STK-MED ONCE IV ; Start at 17:35; Stop 07/30/16 at 08:53; Status DC Pantoprazole Sodium 40 mg 40 mg [id number] IVP Last administered on 07/31/16 06:21; Start 07/30/16 at 18:00 Sodium Chloride 1,000 ml @ 60 mls/hr [id number] IV Last administered on 07/30/16 09:47; Start 07/30/16 at 09:45; Stop 07/30/16 at 12:47; Status DC Cefazolin Sodium/ Sodium Chloride (Ancef/Iv Sodium Chloride 0.9% 500ml Bag) 500 ml @ 500 mls/hr 1X PERIOP ONCE IRR ; Start 07/31/16 at 06:00; Stop 07/31/16 at 06:59; Status DC Insulin Detemir (Levemir) 15 units DAILY10 SQ Last administered on 07/30/16 12: 57; Start 07/30/16 at 13:00 Insulin Aspart 12 units 12 units 1X ONCE SQ ; Start 07/30/16 at 12:45; Stop 07/30 at 12:47; Status DC Amino Acids/ Electrolytes/ Dextrose (Clinimix E 4.25%-5% Solution) 1,000 ml @ 80 mls/hr [id number] IV Last administered on 07/31/16 04:49; Start 07/30/16 at 13: 00 Ondansetron HCl (Zofran) 4 mg PRN Q6HRS PRN IV Nausea; Start 07/31/16 at 07:00; Stop 08/01/16 at 06:59 Fentanyl Citrate (Fentanyl 2ml Vial) 25 mcg PRN Q5MIN PRN IV MILD PAIN; Start 07/31/16 at 07:00; Stop 08/01/16 at 06:59 Fentanyl Citrate (Fentanyl 2ml Vial) 50 mcg PRN Q5MIN PRN IV MODERATE PAIN; Start 07/31/16 at 07:00; Stop 08/01/16 at 06:59 Morphine Sulfate 1 mg 1 mg PRN Q10MIN PRN IV SEVERE PAIN; Start 07/31/16 at 07: 00; Stop 08/01/16 at 06:59 Lactated Ringer's (Iv Lactated Ringers) 1,000 ml @ 30 mls/hr Q24H IV ; Start at 07:00; Stop 07/31/16 at 18:59 Lidocaine HCl 2 ml 1X PRN PRN ID IV START; Start 07/31/16 at 07:00; Stop at 06:59 Hydromorphone HCl (Dilaudid) 0.5 mg PRN Q10MIN PRN IV SEVERE PAIN, Second choice; Start 07/31/16 at 07:00; Stop 08/01/16 at 06:59 Prochlorperazine Edisylate (Compazine) 5 mg PACU PRN PRN IV NAUSEA; Start at 07:00; Stop 08/01/16 at 06:59 Insulin Detemir (Levemir) 10 units QHS SQ ; Start 07/31/16 at 21:00 Active Scripts Active Reported Hydrocodone-Apap 5-325 (Hydrocodone Bit/Acetaminophen) 1 Each Tablet 1 Tab PO Q4HRS PRN Vitals/I & O Vital Sign - Last 24 Hours 07/30/16 07/30/16 07/30/16 07/30/16 11:00 12:00 12:00 12:49 Temp 98.1 98.1 Pulse 86 78 86 Resp 24 20 B/P 158/74 150/76 158/74 Pulse Ox 95 96 O2 Delivery Nasal Cannula Nasal Cannula Nasal Cannula O2 Flow Rate 2.0 2.0 2.0 07/30/16 07/30/16 07/30/16 07/30/16 13:00 14:00 15:00 18:09 Pulse 69 68 63 70 Resp 22 B/P 142/72 141/81 135/71 155/76 Pulse Ox 97 96 97 O2 Delivery Nasal Cannula Nasal Cannula Nasal Cannula O2 Flow Rate 2.0 2.0 2.0 07/30/16 07/30/16 07/31/16 07/31/16 20:00 21:24 03:02 03:57 Temp 98.4 98.7 98.4 98.7 Pulse 74 86 81 Resp 22 B/P 153/70 137/75 165/74 Pulse Ox 93 92 O2 Delivery Nasal Cannula Nasal Cannula Nasal Cannula O2 Flow Rate 2.0 2.0 07/31/16 07/31/16 06:22 07:50 Temp 98.2 98.2 Pulse 81 74 Resp 18 B/P 158/73 160/63 Pulse Ox 92 O2 Delivery Nasal Cannula O2 Flow Rate 2.0 Intake and Output 07/30/16 07/30/16 07/31/16 15:00 23:00 07:00 Intake Total 50 ml 0 ml Output Total 785 ml 165 ml Balance -785 ml 50 ml -165 ml Nutrition Consultation Dietary Evaluation: Recommendations by RD: Increase Calorie Intake, Protein supplementation Comments: Rec. add boost glucose controlled protein supplement TID Rec. continue the Clinimix at 80 ml/hr until intake improves Expected Outcomes/Goals: meet 75% estimated nutrition needs Malnutrition Findings: Reduced Band Director Strength: N/A Weight Status: Overweight Fluid Accumulation (N/A): N/A MADDIE SMYTH MD Jul 31, 2016 10:29
--- NOTE | 2016-07-31 11:20 | PDOC ---
CARDIO Progress Notes Date and Time Date of Service 07/31/2016 Time of Evaluation 1120 Subjective Subjective: Other (no noted moaning or symptoms of discomfort, nonverbal) Vitals Vitals Vital Signs Date Time Temp Pulse Resp B/P Pulse Ox O2 Delivery O2 Flow Rate FiO2 07/31/16 07:50 98.2 74 18 160/63 92 Nasal Cannula 2.0 98.2 Weight Weight [ ] Input and Output Intake and Output Intake and Output 07/31/16 07:00 Intake Total 50 ml Output Total 950 ml Balance -900 ml Intake Oral 0 ml IV Total 50 ml Output Urine Total 950 ml Laboratory Labs Laboratory Tests Test 07/30/16 12:44 07/30/16 17:23 07/31/16 00:30 07/31/16 04:15 Glucose (Fingerstick) 220mg/dL (70-99) 263mg/dL (70-99) 261mg/dL (70-99) White Blood Count 18.1x10^3/uL (4.0-11.0) Red Blood Count 3.79x10^6/uL (4.30-5.70) Hemoglobin 10.7g/dL (13.0-17.5) Hematocrit 33.1% (39.0-53.0) Mean Corpuscular Volume 87fL (79-100) Mean Corpuscular Hemoglobin 28pg (25-35) Mean Corpuscular Hemoglobin Concent 32g/dL (31-37) Red Cell Distribution Width 14.9% (11.5-14.5) Platelet Count 158x10^3/uL (140-400) Sodium Level 143mmol/L (136-145) Potassium Level 4.7mmol/L (3.5-5.1) Chloride Level 108mmol/L (98-107) Carbon Dioxide Level 26mmol/L (21-32) Anion Gap 9 (6-14) Blood Urea Nitrogen 29mg/dL (8-26) Creatinine 1.0mg/dL (0.7-1.3) Estimated GFR (Cockcroft-Gault) 74.5 BUN/Creatinine Ratio 29 (6-20) Glucose Level 310mg/dL (70-99) Calcium Level 9.0mg/dL (8.5-10.1) Total Bilirubin 0.4mg/dL (0.2-1.0) Direct Bilirubin 0.2mg/dL (0.0-0.2) Aspartate Amino Transf (AST/SGOT) 203U/L (15-37) Alanine Aminotransferase (ALT/SGPT) 639U/L (16-63) Alkaline Phosphatase 214U/L (46-116) Total Protein 6.2g/dL (6.4-8.2) Albumin 1.8g/dL (3.4-5.0) Albumin/Globulin Ratio 0.4 (1.0-1.7) Test 07/31/16 07:45 Prothrombin Time 16.6SEC (11.7-14.0) Prothromb Time International Ratio 1.4 (0.8-1.1) Microbiology Micro Microbiology 07/28/16 Blood Culture - Preliminary, Resulted NO GROWTH AFTER 2 DAYS Physical Exam HEENT: Neck Supple W Full Motion Chest: Symmetric LUNGS: Other (increasing bibasilar crackles) Heart: S1S2, RRR (SR no rhythm ectopies), murmurs (2/6 systolic murmur to LLS border) Abdomen: Soft N/T Extremities: No Calf Tenderness, Other (below L knee to L foot mottled and pale and cool. ) Neurology: alert, non-verbal Assessment Assessment 1. NSTEMI: peaked at 1.23. EKG with past inferior TX. Remains to have no cardiac symptoms. Suspect type 2 2. CAD: CABG in the past, unknown date 3. Cardiomyopathy: EF 30% with basal septal hypokinesis and left ventricle systolic function is moderate to severely decreased. None to compare. Appears compensated. 4. Chronic systolic CHF: increasing basilar crackles. 4. Severe PAD/LLE ischemia: failed revascularization to LLE per vascular surgery , POD#2. LAKA this afternoon. 5. HTN: labile 6. DM2 (uncontrolled)/HLP 7. Dysphagia: new? 8. Suspecting poor compliance 9. Metabolic encephalopathy/severe transaminitis 10. Protein malnutrition Recommendations 1. Continue with rectal ASA until po is allowed. Would recommend adding plavix post surgery once ok with vascular surgery 2. HDL low otherwise well controlled. Hold off statin at this time and will reconsider low dose once LFTs are normalized. 3. Remains to be unable to establish baseline cardiac function due inability to contact any next of kin thus no old records. Nobody has come forward family medina. 4. Good tolerance with vascular surgery. If mental status is improved, medical history verified and family contacts establish then will plan for ischemic workup likely as an outpt in the for of stress test. 5. Continue with secondary prevention and supportive care 6. Caution with intravenous infusion and avoid CHF. Maintain lyte balance, Maintain K and Mg 4.0 and 2.0 respectively 7. Good IV hydration, continue with fluid restriction 8. Good UOP. Lasix IV PRN. Hydralazine IV PRN. Start on vasotec IV. 9. PCXR today NASEEM WILSON APRN Jul 31, 2016 11:20
[2016-07-31] MEDS: METRONIDAZOLE 500mg PREMIX 100 ML IV SCH ×2 (11:25→21:44)
--- NOTE | 2016-07-31 11:55 | RAD ---
Portable chest, 07/31/2016: History: Congestive heart failure Comparison is made to a study from 07/28/2016. There as been a previous median sternotomy. The heart size and pulmonary vascularity are normal. No pulmonary infiltrates are seen. There is no evidence of pleural fluid. IMPRESSION: No acute cardiopulmonary abnormality is detected.
[2016-07-31] MEDS: ENALAPRILAT 1.25 MG/ML VIAL. IV SCH ×2 (12:00→18:27)
[2016-07-31] MEDS ORDERED: ENALAPRILAT 1.25 MG/ML VIAL. IV SCH (12:00)
[2016-07-31] MEDS: IV RINGERS,LACTATED 1000ML 1,000 ML IV SCH ×2 (12:00→15:53)
[2016-07-31] MEDS ORDERED: ROCURONIUM 50 MG/5 ML VIAL. ONE (12:49)
[2016-07-31] MEDS ORDERED: FENTANYL PF 100 MCG/2 ML VIAL. ONE ×2 (12:49→14:26)
--- NOTE | 2016-07-31 13:06 | PDOC ---
G I PROGRESS NOTE Subjective In surgery for AKA. Objective Others' notes reviewed. Physical Exam No PE. Review of Relevant I have reviewed the following items chris (where applicable) has been applied. Labs Laboratory Tests Test 07/29/16 16:30 07/29/16 21:13 07/30/16 05:50 07/30/16 12:44 Glucose (Fingerstick) 203mg/dL (70-99) 317mg/dL (70-99) 220mg/dL (70-99) White Blood Count 21.1x10^3/uL (4.0-11.0) Red Blood Count 3.86x10^6/uL (4.30-5.70) Hemoglobin 10.8g/dL (13.0-17.5) Hematocrit 34.9% (39.0-53.0) Mean Corpuscular Volume 90fL (79-100) Mean Corpuscular Hemoglobin 28pg (25-35) Mean Corpuscular Hemoglobin Concent 31g/dL (31-37) Red Cell Distribution Width 14.8% (11.5-14.5) Platelet Count 127x10^3/uL (140-400) Neutrophils (%) (Auto) 91% (31-73) Lymphocytes (%) (Auto) 2% (24-48) Monocytes (%) (Auto) 6% (0-9) Eosinophils (%) (Auto) 0% (0-3) Basophils (%) (Auto) 0% (0-3) Neutrophils # (Auto) 19.3x10^3uL (1.8-7.7) Lymphocytes # (Auto) 0.5x10^3/uL (1.0-4.8) Monocytes # (Auto) 1.3x10^3/uL (0.0-1.1) Eosinophils # (Auto) 0.0x10^3/uL (0.0-0.7) Basophils # (Auto) 0.0x10^3/uL (0.0-0.2) Sodium Level 142mmol/L (136-145) Potassium Level 4.6mmol/L (3.5-5.1) Chloride Level 108mmol/L (98-107) Carbon Dioxide Level 22mmol/L (21-32) Anion Gap 12 (6-14) Blood Urea Nitrogen 31mg/dL (8-26) Creatinine 1.0mg/dL (0.7-1.3) Estimated GFR (Cockcroft-Gault) 74.5 BUN/Creatinine Ratio 31 (6-20) Glucose Level 339mg/dL (70-99) Calcium Level 8.7mg/dL (8.5-10.1) Total Bilirubin 0.6mg/dL (0.2-1.0) Aspartate Amino Transf (AST/SGOT) 353U/L (15-37) Alanine Aminotransferase (ALT/SGPT) 905U/L (16-63) Alkaline Phosphatase 233U/L (46-116) Total Protein 6.4g/dL (6.4-8.2) Albumin 1.8g/dL (3.4-5.0) Albumin/Globulin Ratio 0.4 (1.0-1.7) Triglycerides Level 97mg/dL (0-150) Cholesterol Level 127mg/dL (0-200) LDL Cholesterol, Calculated 87mg/dL (0-100) VLDL Cholesterol, Calculated 19mg/dL (0-40) HDL Cholesterol 21mg/dL (40-60) Cholesterol/HDL Ratio 6.0 Test 07/30/16 17:23 07/31/16 00:30 07/31/16 04:15 07/31/16 07:45 Glucose (Fingerstick) 263mg/dL (70-99) 261mg/dL (70-99) White Blood Count 18.1x10^3/uL (4.0-11.0) Red Blood Count 3.79x10^6/uL (4.30-5.70) Hemoglobin 10.7g/dL (13.0-17.5) Hematocrit 33.1% (39.0-53.0) Mean Corpuscular Volume 87fL (79-100) Mean Corpuscular Hemoglobin 28pg (25-35) Mean Corpuscular Hemoglobin Concent 32g/dL (31-37) Red Cell Distribution Width 14.9% (11.5-14.5) Platelet Count 158x10^3/uL (140-400) Sodium Level 143mmol/L (136-145) Potassium Level 4.7mmol/L (3.5-5.1) Chloride Level 108mmol/L (98-107) Carbon Dioxide Level 26mmol/L (21-32) Anion Gap 9 (6-14) Blood Urea Nitrogen 29mg/dL (8-26) Creatinine 1.0mg/dL (0.7-1.3) Estimated GFR (Cockcroft-Gault) 74.5 BUN/Creatinine Ratio 29 (6-20) Glucose Level 310mg/dL (70-99) Calcium Level 9.0mg/dL (8.5-10.1) Total Bilirubin 0.4mg/dL (0.2-1.0) Direct Bilirubin 0.2mg/dL (0.0-0.2) Aspartate Amino Transf (AST/SGOT) 203U/L (15-37) Alanine Aminotransferase (ALT/SGPT) 639U/L (16-63) Alkaline Phosphatase 214U/L (46-116) Total Protein 6.2g/dL (6.4-8.2) Albumin 1.8g/dL (3.4-5.0) Albumin/Globulin Ratio 0.4 (1.0-1.7) Prothrombin Time 16.6SEC (11.7-14.0) Prothromb Time International Ratio 1.4 (0.8-1.1) Test 07/31/16 12:10 Glucose (Fingerstick) 219mg/dL (70-99) Laboratory Tests Test 07/30/16 17:23 07/31/16 00:30 07/31/16 04:15 07/31/16 07:45 Glucose (Fingerstick) 263mg/dL (70-99) 261mg/dL (70-99) White Blood Count 18.1x10^3/uL (4.0-11.0) Red Blood Count 3.79x10^6/uL (4.30-5.70) Hemoglobin 10.7g/dL (13.0-17.5) Hematocrit 33.1% (39.0-53.0) Mean Corpuscular Volume 87fL (79-100) Mean Corpuscular Hemoglobin 28pg (25-35) Mean Corpuscular Hemoglobin Concent 32g/dL (31-37) Red Cell Distribution Width 14.9% (11.5-14.5) Platelet Count 158x10^3/uL (140-400) Sodium Level 143mmol/L (136-145) Potassium Level 4.7mmol/L (3.5-5.1) Chloride Level 108mmol/L (98-107) Carbon Dioxide Level 26mmol/L (21-32) Anion Gap 9 (6-14) Blood Urea Nitrogen 29mg/dL (8-26) Creatinine 1.0mg/dL (0.7-1.3) Estimated GFR (Cockcroft-Gault) 74.5 BUN/Creatinine Ratio 29 (6-20) Glucose Level 310mg/dL (70-99) Calcium Level 9.0mg/dL (8.5-10.1) Total Bilirubin 0.4mg/dL (0.2-1.0) Direct Bilirubin 0.2mg/dL (0.0-0.2) Aspartate Amino Transf (AST/SGOT) 203U/L (15-37) Alanine Aminotransferase (ALT/SGPT) 639U/L (16-63) Alkaline Phosphatase 214U/L (46-116) Total Protein 6.2g/dL (6.4-8.2) Albumin 1.8g/dL (3.4-5.0) Albumin/Globulin Ratio 0.4 (1.0-1.7) Prothrombin Time 16.6SEC (11.7-14.0) Prothromb Time International Ratio 1.4 (0.8-1.1) Test 07/31/16 12:10 Glucose (Fingerstick) 219mg/dL (70-99) Microbiology 07/28/16 Blood Culture - Preliminary, Resulted NO GROWTH AFTER 2 DAYS LFT's improving. Medications Current Medications Naloxone HCl 0.4 mg 0.4 mg 1X ONCE IV Last administered on 07/28/16 21:30; Start 07/28/16 at 21:30; Stop 07/28/16 at 21:31; Status DC Sodium Chloride 1,000 ml @ 1,000 mls/hr 1X ONCE IV Last administered on 21:30; Start 07/28/16 at 21:30; Stop 07/28/16 at 22:29; Status DC Ceftriaxone Sodium 1 gm/ Sodium Chloride 50 ml @ 100 mls/hr Q24H IV Last administered on 07/30/16 21:39; Start 07/29/16 at 21:00 Ceftriaxone Sodium 50 ml @ 100 mls/hr 1X ONCE IV Last administered on 21:35; Start 07/28/16 at 22:00; Stop 07/28/16 at 22:29; Status DC Heparin Sodium/ Dextrose 500 ml @ 0 mls/hr CONT PRN IV SEE I/O RECORD Last administered on 07/29/16 21:46; Start 07/28/16 at 22:00; Stop 07/30/16 at 07:59; Status DC Heparin Sodium (Porcine) 2,200 unit PRN Q6HRS PRN IV FOR UFH LEVEL LESS THAN 0.2 Last administered on 07/28/16 23:14; Start 07/28/16 at 22:00; Stop 07/30/16 at 08:00; Status DC Ondansetron HCl 4 mg 4 mg PRN Q8HRS PRN IV NAUSEA/VOMITING; Start 07/28/16 at 22 :15; Stop 07/29/16 at 22:14; Status DC Sodium Chloride 1,000 ml @ 125 mls/hr Q8H IV Last administered on 07/29/16 08: 16; Start 07/28/16 at 22:01; Stop 07/29/16 at 13:04; Status DC Metronidazole (FLAGYL 500Mmg PREMIX) 100 ml @ 100 mls/hr Q12HR IV Last administered on 07/31/16 11:25; Start 07/28/16 at 22:30 Hydralazine HCl (Apresoline) 10 mg PRN Q4HRS PRN IVP ELEVATED BP, SEE COMMENTS ; Start 07/29/16 at 03:00 Insulin Aspart (Novolog) 0-9 UNITS TIDWMEALS SQ Last administered on 07/31/16 08:50; Start 07/29/16 at 08:00 Dextrose 12.5 gm PRN Q15MIN PRN IV SEE COMMENTS; Start 07/29/16 at 03:00 Insulin Aspart (Novolog) 8 units 1X ONCE SQ Last administered on 07/29/16 08: 20; Start 07/29/16 at 08:30; Stop 07/29/16 at 08:31; Status DC Morphine Sulfate 2 mg PRN Q2HR PRN IV PAIN Last administered on 07/30/16 05:45 ; Start 07/29/16 at 09:00 Aspirin (Aspirin) 300 mg 1X ONCE TX Last administered on 07/29/16 13:17; Start 07/29/16 at 10:30; Stop 07/29/16 at 10:31; Status DC Heparin Sodium (Porcine) 1,800 unit PRN Q6HRS PRN IV FOR UFH LEVEL LESS THAN 0.2 Last administered on 07/29/16 10:35; Start 07/29/16 at 10:15; Stop 07/30/16 at 08:00; Status DC Metoprolol Tartrate (Lopressor) 5 mg Q6HRS IVP Last administered on 07/31/16 06 :22; Start 07/29/16 at 13:00 Aspirin 150 mg 150 mg DAILY TX Last administered on 07/30/16 09:21; Start at 09:00 Sodium Chloride 1,000 ml @ 60 mls/hr [id number] IV Last administered on 07/29/16 13:25; Start 07/29/16 at 13:30; Stop 07/29/16 at 13:31; Status DC Heparin Sodium (Porcine) 5000 unit/Sodium Chloride 505 ml @ 505 mls/hr 1X PERIOP ONCE IRR Last administered on 07/29/16 15:26; Start 07/29/16 at 14:00; Stop 07/29/16 at 14:59; Status DC Cefazolin Sodium/ Sodium Chloride (Ancef/Iv Sodium Chloride 0.9% 500ml Bag) 500 ml @ 500 mls/hr 1X PERIOP ONCE IRR Last administered on 07/29/16 15:26; Start 07/29/16 at 14:00; Stop 07/29/16 at 14:59; Status DC Gelatin (Gelfoam Size 12-7mm) 1 each STK-MED ONCE .ROUTE ; Start 07/29/16 at 13: 54; Stop 07/29/16 at 13:55; Status DC Cellulose 1 each STK-MED ONCE .ROUTE ; Start 07/29/16 at 13:54; Stop 07/29/16 at 13:55; Status DC Iohexol (Omnipaque 300 Mg/ml) 50 ml STK-MED ONCE .ROUTE ; Start 07/29/16 at 13:54 ; Stop 07/29/16 at 13:55; Status DC Gelatin (Gelfoam Size 100) 1 each STK-MED ONCE .ROUTE ; Start 07/29/16 at 13:54 ; Stop 07/29/16 at 13:55; Status DC Papaverine HCl 60 mg STK-MED ONCE .ROUTE ; Start 07/29/16 at 13:54; Stop 07/29/16 at 13:55; Status DC Thrombin 20,000 unit STK-MED ONCE TP ; Start 07/29/16 at 13:54; Stop 07/29/16 at 13:55; Status DC Midazolam HCl (Versed) 2 mg STK-MED ONCE .ROUTE ; Start 07/29/16 at 14:14; Stop 07/29/16 at 14:15; Status DC Fentanyl Citrate (Fentanyl 5ml Vial) 250 mcg STK-MED ONCE .ROUTE ; Start at 14:14; Stop 07/29/16 at 14:15; Status DC Rocuronium [place] 50 mg 50 mg STK-MED ONCE .ROUTE ; Start 07/29/16 at 14:14; Stop 07/29/16 at 14:15; Status DC Propofol (Diprivan) 20 ml @ As Directed STK-MED ONCE IV ; Start 07/29/16 at 14:14 ; Stop 07/29/16 at 14:15; Status DC Dexamethasone Sodium Phosphate (Decadron) 20 mg STK-MED ONCE .ROUTE ; Start 07/29 at 14:14; Stop 07/29/16 at 14:15; Status DC Ondansetron HCl (Zofran) 4 mg STK-MED ONCE .ROUTE ; Start 07/29/16 at 14:14; Stop 07/29/16 at 14:15; Status DC Lidocaine HCl 100 mg STK-MED ONCE .ROUTE ; Start 07/29/16 at 14:15; Stop 07/29/16 at 14:16; Status DC Succinylcholine Chloride (Anectine) 200 mg STK-MED ONCE .ROUTE ; Start 07/29/16 at 14:43; Stop 07/29/16 at 14:44; Status DC Phenylephrine HCl 1 mg STK-MED ONCE IV ; Start 07/29/16 at 15:01; Stop 07/29/16 at 15:02; Status DC Ephedrine Sulfate 50 mg 50 mg STK-MED ONCE .ROUTE ; Start 07/29/16 at 15:28; Stop 07/29/16 at 15:29; Status DC Insulin Human Regular/Sodium Chloride (Novolin R Vial/ Iv Normal Saline 150ml) 151.5 ml @ 7.29 mls/hr 1X ONCE IV ; Start 07/29/16 at 16:45; Stop 07/30/16 at 12 :52; Status DC Info (Anti-Coagulation Monitoring By Pharmacy) 1 each PRN DAILY PRN MC SEE COMMENTS Last administered on 07/29/16t 17:00; Start 07/29/16 at 17:00; Stop at 12:51; Status DC Heparin Sodium (Porcine) 10,000 unit STK-MED ONCE .ROUTE ; Start 07/29/16 at 17: 02; Stop 07/29/16 at 17:03; Status DC Neostigmine Methylsulfate 5 mg STK-MED ONCE .ROUTE ; Start 07/29/16 at 20:52; Stop 07/29/16 at 20:53; Status DC Glycopyrrolate (Robinul) 1 mg STK-MED ONCE .ROUTE ; Start 07/29/16 at 20:52; Stop 07/29/16 at 20:53; Status DC Fentanyl Citrate (Fentanyl 2ml Vial) 50 mcg PRN Q5MIN PRN IV Acute Pain; Start 07/29/16 at 21:15; Stop 07/30/16 at 21:14; Status DC Morphine Sulfate 4 mg PRN Q10MIN PRN IV Moderate Pain; Start 07/29/16 at 21:15; Stop 07/30/16 at 21:14; Status DC Hydromorphone HCl (Dilaudid) 0.4 mg PRN Q10MIN PRN IV Moderate to severe pain; Start 07/29/16 at 21:15; Stop 07/30/16 at 21:14; Status DC Meperidine HCl (Demerol) 12.5 mg PRN Q5MIN PRN IV SHIVERING; Start 07/29/16 at 21:15; Stop 07/30/16 at 00:00; Status DC Prochlorperazine Edisylate (Compazine) 5 mg PRN Q6HRS PRN IV Nausea/Vomiting, 1st Choice; Start 07/29/16 at 21:15; Stop 07/30/16 at 21:14; Status DC Diphenhydramine HCl 12.5 mg 12.5 mg PRN Q2HR PRN IV ITCHING; Start 07/29/16 at 21:15; Stop 07/30/16 at 21:14; Status DC Sodium Chloride (Iv Sodium Chloride 0.45%) 1,000 ml @ 100 mls/hr Q10H IV Last administered on 07/29/16 21:59; Start 07/29/16 at 22:00; Stop 07/30/16 at 09:41; Status DC Cefazolin Sodium/ Dextrose (Ancef 2gm Premix) 2 gm STK-MED ONCE IV ; Start at 17:35; Stop 07/30/16 at 08:53; Status DC Pantoprazole Sodium 40 mg 40 mg [id number] IVP Last administered on 07/31/16 06:21; Start 07/30/16 at 18:00 Sodium Chloride 1,000 ml @ 60 mls/hr [id number] IV Last administered on 07/30/16 09:47; Start 07/30/16 at 09:45; Stop 07/30/16 at 12:47; Status DC Cefazolin Sodium/ Sodium Chloride (Ancef/Iv Sodium Chloride 0.9% 500ml Bag) 500 ml @ 500 mls/hr 1X PERIOP ONCE IRR ; Start 07/31/16 at 06:00; Stop 07/31/16 at 06:59; Status DC Insulin Detemir (Levemir) 15 units [id number] SQ Last administered on 07/30/16 12: 57; Start 07/30/16 at 13:00 Insulin Aspart 12 units 12 units 1X ONCE SQ ; Start 07/30/16 at 12:45; Stop 07/30 at 12:47; Status DC Amino Acids/ Electrolytes/ Dextrose (Clinimix E 4.25%-5% Solution) 1,000 ml @ 80 mls/hr [id number] IV Last administered on 07/31/16 04:49; Start 07/30/16 at 13: 00 Ondansetron HCl (Zofran) 4 mg PRN Q6HRS PRN IV Nausea; Start 07/31/16 at 07:00; Stop 08/01/16 at 06:59 Fentanyl Citrate (Fentanyl 2ml Vial) 25 mcg PRN Q5MIN PRN IV MILD PAIN; Start 07/31/16 at 07:00; Stop 08/01/16 at 06:59 Fentanyl Citrate (Fentanyl 2ml Vial) 50 mcg PRN Q5MIN PRN IV MODERATE PAIN; Start 07/31/16 at 07:00; Stop 08/01/16 at 06:59 Morphine Sulfate 1 mg 1 mg PRN Q10MIN PRN IV SEVERE PAIN; Start 07/31/16 at 07: 00; Stop 08/01/16 at 06:59 Lactated Ringer's (Iv Lactated Ringers) 1,000 ml @ 30 mls/hr Q24H IV Last administered on 07/31/16t 12:00; Start 07/31/16 at 07:00; Stop 07/31/16 at 18:59 Lidocaine HCl 2 ml 1X PRN PRN ID IV START; Start 07/31/16 at 07:00; Stop at 06:59 Hydromorphone HCl (Dilaudid) 0.5 mg PRN Q10MIN PRN IV SEVERE PAIN, Second choice; Start 07/31/16 at 07:00; Stop 08/01/16 at 06:59 Prochlorperazine Edisylate (Compazine) 5 mg PACU PRN PRN IV NAUSEA; Start at 07:00; Stop 08/01/16 at 06:59 Insulin Detemir (Levemir) 10 units QHS SQ ; Start 07/31/16 at 21:00 Enalaprilat (Vasotec) 1.25 mg Q6HRS IV ; Start 07/31/16 at 12:00; Stop 07/31/16 at 12:00; Status DC Enalaprilat (Vasotec) 0.625 mg Q6HRS IV ; Start 07/31/16 at 12:00 Fentanyl Citrate (Fentanyl 2ml Vial) 100 mcg STK-MED ONCE .ROUTE ; Start at 12:49; Stop 07/31/16 at 12:50; Status DC Rocuronium [place] (Zemuron) 50 mg STK-MED ONCE .ROUTE ; Start 07/31/16 at 12:49 ; Stop 07/31/16 at 12:50; Status DC Active Scripts Active Reported Hydrocodone-Apap 5-325 (Hydrocodone Bit/Acetaminophen) 1 Each Tablet 1 Tab PO Q4HRS PRN Vitals/I & O Vital Sign - Last 24 Hours 07/30/16 07/30/16 07/30/16 07/30/16 14:00 15:00 18:09 20:00 Pulse 68 63 70 Resp 22 B/P 141/81 135/71 155/76 Pulse Ox 96 97 O2 Delivery Nasal Cannula Nasal Cannula Nasal Cannula O2 Flow Rate 2.0 2.0 2.0 07/30/16 07/31/16 07/31/16 07/31/16 21:24 03:02 03:57 06:22 Temp 98.4 98.7 98.4 98.7 Pulse 74 86 81 81 Resp B/P 153/70 137/75 165/74 158/73 Pulse Ox 93 92 O2 Delivery Nasal Cannula Nasal Cannula O2 Flow Rate 2.0 07/31/16 07/31/16 07/31/16 07/31/16 07:50 11:00 12:13 12:46 Temp 98.2 97.9 98.1 98.2 97.9 98.1 Pulse 74 72 71 Resp 18 18 19 B/P 160/63 140/64 163/77 Pulse Ox 92 94 94 O2 Delivery Nasal Cannula Nasal Cannula Nasal Cannula Nasal Cannula O2 Flow Rate 2.0 2.0 2.0 2.0 Intake and Output 07/30/16 07/30/16 07/31/16 15:00 23:00 07:00 Intake Total 50 ml 0 ml Output Total 785 ml 165 ml Balance -785 ml 50 ml -165 ml Problem List Problems Medical Problems: (1) Altered mental status Status: Acute (2) Dehydration Status: Acute (3) NSTEMI (non-ST elevated myocardial infarction) Status: Acute Assessment Transaminitis, from hepatic infarct? Improving. Plan of Care: Continue current Tx, Mgmt Plan of Care Note Will follow. JETHRO SEE MD Jul 31, 2016 13:06
--- NOTE | 2016-07-31 13:14 | PDOC ---
Provider Note Provider Note Vascular Surgery Patient is non-verbal and there is no family to sign for consent of left above the knee amputation. The procedure is medically necessary, and myself the the PCP has signed for the amputation because of the failed bypass to the left leg and a non-viable left leg. Plan to proceed with a left above the knee amputation. ERASTO CLEMONS MD Jul 31, 2016 13:14
[2016-07-31] MEDS ORDERED: LIDOCAINE 2% 100 MG/5 ML DISP.SYRIN. ONE (13:17)
[2016-07-31] MEDS ORDERED: PROPOFOL 20 ML IV ONE (13:17)
[2016-07-31] MEDS ORDERED: SUCCINYLCHOLINE 200 MG/10 ML VIAL. ONE (13:30)
[2016-07-31] MEDS ORDERED: DEXAMETHASONE SOD PHOS 20 MG/5 ML VIAL. ONE (13:42)
[2016-07-31] MEDS ORDERED: ONDANSETRON PF 4 MG/2 ML VIAL. ONE (13:42)
[2016-07-31] MEDS ORDERED: PHENYLEPHRINE in 0.9% NACL PF 1 MG/10 ML DISP.SYRIN. IV ONE (13:47)
[2016-07-31] MEDS ORDERED: SEVOFLURANE 61 TO 120 MINUTES. IH ONE (15:13)
--- NOTE | 2016-07-31 15:17 | PDOC ---
BRIEF OPERATIVE NOTE Date: Jul 31, 2016 Pre-Op Diagnosis Left leg ischemia Post-Op Diagnosis Same Procedure Performed Left above the knee amputation, distal femur Surgeon Dr. Morris Foam [employer] Fabricator none Anesthesia Type: General Blood Loss 75 cc Specimens Obtained left lower leg Findings Viable muscle. occluded bypass graft. Complications none ERASTO MORRIS MD Jul 31, 2016 15:17
[2016-07-31] MEDS ORDERED: INSULIN ASPART 100 UNIT/ML 10ML VIAL. SQ ONE ×4 (15:41→16:00)
[2016-07-31] MEDS ORDERED: INSULIN ASPART 300 UNITS/3 ML INSULN.PEN SQ ONE (15:45)
--- NOTE | 2016-07-31 15:51 | PDOC ---
PROGRESS NOTES Assessment Assessment Metabolic encephalopathy. Lethargy. Hyperglycemia, glucose 455 NSTEMI? CAD S/p CABG. PVD DM HTN HLD CKD Elevated hepatic function. Left LE surgery. RECOMMENDATIONS/PLAN: HCT performed no acute findings. Treat medical, cardiac and surgical diseases. Neurology will follow. HISTORY OF THE PRESENT ILLNESS: 66-y-old male patient with above medical diseases had MS changes and decreased response and was brought to the ER of [facility]. Further evaluation showed left LE vascular disease. neurology was called for consultation due to MS changes. PAST MEDICAL HISTORY: Please see above. PAST SURGERY HISTORY: LE vascular surgery in this admission. ALLERGY: Reviewed. MEDICATIONS: Refer to [facility] FAMILY HISTORY: Non contributory. SOCIAL HISTORY: Unknown hx of his smoking, drinking, and illicit drug use.status. REVIEW OF SYSTEMS: Constitutional: No malnutrition, weight loss, cachexia. Head: No traumatic brain or head injury. Skin: No edema, or rash. Ear: No infection, tinnitus. Eyes: No vision loss or color blindness. Nose: No bleeding or purulent discharges. Hearing: No hearing decrease. Neck: No injury. Cardiac: CAD, s/p CABG, HTN, HLD. Pulmonary: No COPD. GI: No GI ulcer, GI bleeding. Urinary/genital: UTI. Endocrinologic: Diabetes Mellitus. Skeletomuscular: Right toe amputation. Neurological: see HP. Psychiatric: Unknown drug use/abuse. Otherwise, not [id number] review of systems. PHYSICAL EXAMINATION: General appearance is in subacute distress. HEENT: Normocephalic and nontraumatic. Eyes, nose, ears, and throat are unremarkable. Neck is supple. No lymphadenopathy. No crepitus. Cardiovascular: S1, S2, regular rate and rhythm. Pulmonary: Clear to auscultation bilaterally. Abdomen: Bowel sounds are positive. Extremities: No rash, lesions. No restriction of range of motion NEUROLOGICAL EXAMINATION: Eyes open from time to time. Unable to communicate. Able to follow a few commands. Not oriented to time, place and person. PERRL. EOMI very slow. CN: no acute focal findings. Muscle tone: fluctuated. Muscle strength: moves all extremities. DTR: 1-2 Plantar reflex: Right tor amputation. Left LE wrapped. Gait: Unable to walk. Sensory exam: withdraws to stimuli. Not able to access cerebellar signs. Objective Objective Vital Signs Date Time Temp Pulse Resp B/P Pulse Ox O2 Delivery O2 Flow Rate FiO2 07/31/16 15:45 79 20 152/69 99 Simple Mask 10 07/31/16 12:13 98.1 98.1 Intake and Output 07/31/16 07:00 Intake Total 50 ml Output Total 950 ml Balance -900 ml Intake Oral 0 ml IV Total 50 ml Output Urine Total 950 ml Vitals Signs Vitals VS - Last 72 Hours, by Label Date Time Temp Pulse Resp B/P Pulse Ox O2 Delivery O2 Flow Rate FiO2 07/31/16 15:45 79 20 152/69 99 Simple Mask 10 07/31/16 15:30 78 20 150/67 98 Simple Mask 10 07/31/16 12:13 98.1 71 19 163/77 94 Nasal Cannula 2.0 98.1 07/31/16 11:00 97.9 72 18 140/64 94 Nasal Cannula 2.0 97.9 07/31/16 08:15 Nasal Cannula 2.0 07/31/16 07:50 98.2 74 18 160/63 92 Nasal Cannula 2.0 98.2 07/31/16 06:22 81 158/73 07/31/16 03:57 81 165/74 07/31/16 03:02 98.7 86 22 137/75 92 Nasal Cannula 2.0 98.7 07/30/16 21:24 98.4 74 16 153/70 93 Nasal Cannula 98.4 07/30/16 20:00 Nasal Cannula 2.0 07/30/16 18:09 70 155/76 07/30/16 15:00 63 22 135/71 97 Nasal Cannula 2.0 07/30/16 14:00 68 22 141/81 96 Nasal Cannula 2.0 07/30/16 13:00 69 16 142/72 97 Nasal Cannula 2.0 07/30/16 12:49 86 158/74 07/30/16 12:00 98.1 78 20 150/76 96 Nasal Cannula 2.0 98.1 07/30/16 12:00 Nasal Cannula 2.0 07/30/16 11:00 86 24 158/74 95 Nasal Cannula 2.0 07/30/16 10:00 87 24 151/79 90 Room Air 07/30/16 09:00 86 26 147/75 95 Room Air 07/30/16 08:00 98.4 81 22 149/82 94 Room Air 98.4 07/30/16 08:00 Room Air 07/30/16 07:00 84 23 149/98 93 Room Air Laboratory Laboratory Laboratory Tests Test 07/30/16 17:23 07/31/16 00:30 07/31/16 04:15 07/31/16 07:45 Glucose (Fingerstick) 263mg/dL (70-99) 261mg/dL (70-99) White Blood Count 18.1x10^3/uL (4.0-11.0) Red Blood Count 3.79x10^6/uL (4.30-5.70) Hemoglobin 10.7g/dL (13.0-17.5) Hematocrit 33.1% (39.0-53.0) Mean Corpuscular Volume 87fL (79-100) Mean Corpuscular Hemoglobin 28pg (25-35) Mean Corpuscular Hemoglobin Concent 32g/dL (31-37) Red Cell Distribution Width 14.9% (11.5-14.5) Platelet Count 158x10^3/uL (140-400) Sodium Level 143mmol/L (136-145) Potassium Level 4.7mmol/L (3.5-5.1) Chloride Level 108mmol/L (98-107) Carbon Dioxide Level 26mmol/L (21-32) Anion Gap 9 (6-14) Blood Urea Nitrogen 29mg/dL (8-26) Creatinine 1.0mg/dL (0.7-1.3) Estimated GFR (Cockcroft-Gault) 74.5 BUN/Creatinine Ratio 29 (6-20) Glucose Level 310mg/dL (70-99) Calcium Level 9.0mg/dL (8.5-10.1) Total Bilirubin 0.4mg/dL (0.2-1.0) Direct Bilirubin 0.2mg/dL (0.0-0.2) Aspartate Amino Transf (AST/SGOT) 203U/L (15-37) Alanine Aminotransferase (ALT/SGPT) 639U/L (16-63) Alkaline Phosphatase 214U/L (46-116) Total Protein 6.2g/dL (6.4-8.2) Albumin 1.8g/dL (3.4-5.0) Albumin/Globulin Ratio 0.4 (1.0-1.7) Prothrombin Time 16.6SEC (11.7-14.0) Prothromb Time International Ratio 1.4 (0.8-1.1) Test 07/31/16 12:10 07/31/16 15:20 Glucose (Fingerstick) 219mg/dL (70-99) 247mg/dL (70-99) Microbiology 07/28/16 Blood Culture - Preliminary, Resulted NO GROWTH AFTER 2 DAYS Medication Medications Current Medications Cefazolin Sodium/ Sodium Chloride (Ancef/Iv Sodium Chloride 0.9% 500ml Bag) 500 ml @ 500 mls/hr 1X PERIOP ONCE IRR Last administered on 07/31/16t 13:47; Start 07/31/16 at 06:00; Stop 07/31/16 at 06:59; Status DC Dexamethasone Sodium Phosphate (Decadron) 20 mg STK-MED ONCE .ROUTE ; Start 07/31 at 13:42; Stop 07/31/16 at 13:43; Status DC Enalaprilat (Vasotec) 0.625 mg Q6HRS IV ; Start 07/31/16 at 12:00 Enalaprilat (Vasotec) 1.25 mg Q6HRS IV ; Start 07/31/16 at 12:00; Stop 07/31/16 at 12:00; Status DC Fentanyl Citrate (Fentanyl 2ml Vial) 25 mcg PRN Q5MIN PRN IV MILD PAIN; Start 07/31/16 at 07:00; Stop 08/01/16 at 06:59 Fentanyl Citrate (Fentanyl 2ml Vial) 50 mcg PRN Q5MIN PRN IV MODERATE PAIN; Start 07/31/16 at 07:00; Stop 08/01/16 at 06:59 Fentanyl Citrate (Fentanyl 2ml Vial) 100 mcg STK-MED ONCE .ROUTE ; Start at 12:49; Stop 07/31/16 at 12:50; Status DC Fentanyl Citrate (Fentanyl 2ml Vial) 100 mcg STK-MED ONCE .ROUTE ; Start at 14:26; Stop 07/31/16 at 14:27; Status DC Hydromorphone HCl (Dilaudid) 0.5 mg PRN Q10MIN PRN IV SEVERE PAIN, Second choice; Start 07/31/16 at 07:00; Stop 08/01/16 at 06:59 Insulin Aspart (Novolog Vial) 3 unit 1X ONCE SQ ; Start 07/31/16 at 15:45; Stop 07/31/16 at 15:46; Status Cancel Insulin Aspart (Novolog Vial) 3 unit 1X ONCE SQ ; Start 07/31/16 at 16:00; Stop 07/31/16 at 16:01 Insulin Aspart (Novolog Vial) 100 unit STK-MED ONCE SQ ; Start 07/31/16 at 15:41 ; Stop 07/31/16 at 15:42; Status DC Insulin Aspart (Novolog) 3 units 1X ONCE SQ ; Start 07/31/16 at 15:45; Stop 07/31 at 15:46; Status DC Insulin Detemir (Levemir) 10 units QHS SQ ; Start 07/31/16 at 21:00 Lactated Ringer's (Iv Lactated Ringers) 1,000 ml @ 30 mls/hr Q24H IV Last administered on 07/31/16 12:00; Start 07/31/16 at 07:00; Stop 07/31/16 at 18:59 Lidocaine HCl 2 ml 1X PRN PRN ID IV START; Start 07/31/16 at 07:00; Stop at 06:59 Lidocaine HCl 100 mg 100 mg STK-MED ONCE .ROUTE ; Start 07/31/16 at 13:17; Stop 07/31/16 at 13:18; Status DC Morphine Sulfate 1 mg 1 mg PRN Q10MIN PRN IV SEVERE PAIN; Start 07/31/16 at 07: 00; Stop 08/01/16 at 06:59 Ondansetron HCl (Zofran) 4 mg PRN Q6HRS PRN IV Nausea; Start 07/31/16 at 07:00; Stop 08/01/16 at 06:59 Ondansetron HCl (Zofran) 4 mg STK-MED ONCE .ROUTE ; Start 07/31/16 at 13:42; Stop 07/31/16 at 13:43; Status DC Pantoprazole Sodium 40 mg 40 mg [id number] IVP Last administered on 07/31/16 06:21; Start 07/30/16 at 18:00 Phenylephrine HCl 1 mg STK-MED ONCE IV ; Start 07/31/16 at 13:47; Stop 07/31/16 at 13:48; Status DC Prochlorperazine Edisylate (Compazine) 5 mg PACU PRN PRN IV NAUSEA; Start at 07:00; Stop 08/01/16 at 06:59 Propofol (Diprivan) 20 ml @ As Directed STK-MED ONCE IV ; Start 07/31/16 at 13:17 ; Stop 07/31/16 at 13:18; Status DC Rocuronium [place] (Zemuron) 50 mg STK-MED ONCE .ROUTE ; Start 07/31/16 at 12:49 ; Stop 07/31/16 at 12:50; Status DC Sevoflurane (Ultane) 60 ml STK-MED ONCE IH ; Start 07/31/16 at 15:13; Stop at 15:14; Status DC Succinylcholine Chloride (Anectine) 200 mg STK-MED ONCE .ROUTE ; Start 07/31/16 at 13:30; Stop 07/31/16 at 13:31; Status DC Comment Review of Relevant I have reviewed the following items chris (where applicable) has been applied. HECTOR SAWYER MD Jul 31, 2016 15:50
--- NOTE | 2016-07-31 18:00 | OP ---
DATE OF SURGERY: 07/31/2016 PREOPERATIVE DIAGNOSIS: Left limb ischemia. POSTOPERATIVE DIAGNOSIS: Left limb ischemia. PROCEDURE: Left [id number] amputation, distal femur. SURGEON: Johnny Morris MD. ANESTHESIA: General. INDICATION: This is a 66-year-old, who initially presented to the Emergency Room with altered mental status as well as an ischemic left leg. He was taken back to the operating room on 07/29/2016 for exploration and endarterectomy was performed of the left common femoral artery as well as a bypass from the left common femoral artery to the tibioperoneal trunk with 7-mm [place] graft. This graft subsequently occluded due to poor outflow. The left leg remained ischemic and the only alternative option was to perform an amputation. The patient was not mentally alert enough to agree to consent. However, this was a medically necessary procedure and this was signed by 2 physicians including myself. DESCRIPTION OF PROCEDURE: The consent was signed by myself and the primary care physician because the patient was unable to sign consent. The procedure was medically necessary. The patient was taken back to the operating room and placed in a supine position on the operating room table after general anesthesia was administered. The patient was given IV antibiotics. The left leg was prepped and draped circumferentially. A timeout was performed to verify the correct procedure and patient. An incision was made in the distal portion of the left upper thigh and this incision was carried down to the muscle. Subsequently, the muscle was then divided with electrocautery. Small vessels were tied off with 3-0 silk ties. The prior bypass graft was ligated with 2-0 silk. The residual left common femoral artery as well as the femoral vein were identified and this was also ligated with 2-0 silk. In addition, an 0 silk tie was also used for suture ligation of both the superficial femoral artery and the popliteal vein. The tibial nerve was identified and ligated. The femur was then cleared with electrocautery and the femur was then resected with a reciprocating saw approximately 5 cm from the level of the skin incision. Subsequently, an amputation knife was used to cut through the posterior portion of the muscle and remove the leg from the operating room field. Additional hemostats were used over small perforating vessels that were bleeding and these were all suture ligated with 3-0 silk. The wound was then irrigated with antibiotic solution. The fascia was closed with interrupted 2-0 Vicryl suture. A running subcuticular layer was then completed with 3-0 Vicryl. [place] were used to close the skin incision. A strip of Xeroform was applied to the wound. The previous left common femoral incision was dressed with 4 x 4s and tape. The amputation site was then dressed with fluff dressing and then wrapped with Kerlix as well as an Damaso wrap. The patient was extubated and taken to the PACU for further recovery. FINDINGS: The muscle of the thigh was noted to be viable. The bypass graft was occluded as well as the common femoral artery. COMPLICATIONS: None. BLOOD LOSS: 75 mL. JOHNNY MORRIS MD DR: CAILIN/vikki JOB#: [id number] / [id number] ALDA
[2016-07-31] MEDS ORDERED: INSULIN DETEMIR 300 UNITS/3 ML INSULN.PEN. SQ SCH (21:00)
[2016-08-01] VITALS (7 sets, daily range): BP systolic 119–158; BP diastolic 48–73
[2016-08-01] MEDS: ENALAPRILAT 1.25 MG/ML VIAL. IV SCH ×4 (00:27→19:44)
[2016-08-01] MEDS: METOPROLOL TARTRATE 5 MG/5 ML VIAL. IVP SCH ×4 (00:28→19:43)
[2016-08-01] MEDS: AA 4.25%/CALCIUM/LYTES/D5W 1,000 ML IV SCH ×2 (02:06→17:17)
[2016-08-01] MEDS: PANTOPRAZOLE IV PUSH 40 MG VIAL. IVP SCH ×3 (06:29→20:54)
[2016-08-01] MEDS: INSULIN ASPART 300 UNITS/3 ML INSULN.PEN SQ SCH ×3 (08:00→19:43)
--- NOTE | 2016-08-01 09:16 | PDOC ---
PROGRESS NOTES Chief Complaint Chief Complaint s/p LEFt AKA () for Severe PVD Acute metabolic encephalopathy - multifactorial Dm1, poor control NSTEMI, vasomotor nephropathy, diabetes with severe chronic atherosclerosis, multilevel. 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 POD # 1 VS stable LAbs ok' BUt BS high Still no family coming up front Dressing on left stump dry PLAn: Inc levemir to 30 qhs Change SSI to q6 instead of ACHS BAR ASSISTANT to re eval COnt PT/OT when able SW for dc planning and family issues LAbs chanel Vitals Vitals Vital Signs Date Time Temp Pulse Resp B/P Pulse Ox O2 Delivery O2 Flow Rate FiO2 08/01/16 07:00 97.7 58 16 139/67 94 Nasal Cannula 1.5 97.7 Physical Exam General: Cooperative, No acute distress, Other (confuse) Heart: Regular rate, Normal S1, Normal S2, No murmurs, Other (2/6 systolic murmur to LLS border) Abdomen: Soft, No tenderness Extremities: Other (absent doppler arterial flow left pt artery, foot mottled, cannot passively dorsiflex foot.) Skin: No breakdown, Other (white scaly skin to bilateral feet) Labs LABS Laboratory Tests Test 07/31/16 12:10 07/31/16 15:20 07/31/16 17:45 07/31/16 20:59 Glucose (Fingerstick) 219mg/dL (70-99) 247mg/dL (70-99) 265mg/dL (70-99) 285mg/dL (70-99) Test 08/01/16 06:18 Glucose (Fingerstick) 332mg/dL (70-99) Review of Systems Review of Systems non verbal Assessment and Plan Assessmemt and Plan Problems Medical Problems: (1) Altered mental status Status: Acute (2) Dehydration Status: Acute (3) NSTEMI (non-ST elevated myocardial infarction) Status: Acute Problems: Comment Review of Relevant I have reviewed the following items chris (where applicable) has been applied. Labs Laboratory Tests Test 07/30/16 12:44 07/30/16 17:23 07/31/16 00:30 07/31/16 04:15 Glucose (Fingerstick) 220mg/dL (70-99) 263mg/dL (70-99) 261mg/dL (70-99) White Blood Count 18.1x10^3/uL (4.0-11.0) Red Blood Count 3.79x10^6/uL (4.30-5.70) Hemoglobin 10.7g/dL (13.0-17.5) Hematocrit 33.1% (39.0-53.0) Mean Corpuscular Volume 87fL (79-100) Mean Corpuscular Hemoglobin 28pg (25-35) Mean Corpuscular Hemoglobin Concent 32g/dL (31-37) Red Cell Distribution Width 14.9% (11.5-14.5) Platelet Count 158x10^3/uL (140-400) Sodium Level 143mmol/L (136-145) Potassium Level 4.7mmol/L (3.5-5.1) Chloride Level 108mmol/L (98-107) Carbon Dioxide Level 26mmol/L (21-32) Anion Gap 9 (6-14) Blood Urea Nitrogen 29mg/dL (8-26) Creatinine 1.0mg/dL (0.7-1.3) Estimated GFR (Cockcroft-Gault) 74.5 BUN/Creatinine Ratio 29 (6-20) Glucose Level 310mg/dL (70-99) Calcium Level 9.0mg/dL (8.5-10.1) Total Bilirubin 0.4mg/dL (0.2-1.0) Direct Bilirubin 0.2mg/dL (0.0-0.2) Aspartate Amino Transf (AST/SGOT) 203U/L (15-37) Alanine Aminotransferase (ALT/SGPT) 639U/L (16-63) Alkaline Phosphatase 214U/L (46-116) Total Protein 6.2g/dL (6.4-8.2) Albumin 1.8g/dL (3.4-5.0) Albumin/Globulin Ratio 0.4 (1.0-1.7) Test 07/31/16 07:45 07/31/16 12:10 07/31/16 15:20 07/31/16 17:45 Prothrombin Time 16.6SEC (11.7-14.0) Prothromb Time International Ratio 1.4 (0.8-1.1) Glucose (Fingerstick) 219mg/dL (70-99) 247mg/dL (70-99) 265mg/dL (70-99) Test 07/31/16 20:59 08/01/16 06:18 Glucose (Fingerstick) 285mg/dL (70-99) 332mg/dL (70-99) Laboratory Tests Test 07/31/16 12:10 07/31/16 15:20 07/31/16 17:45 07/31/16 20:59 Glucose (Fingerstick) 219mg/dL (70-99) 247mg/dL (70-99) 265mg/dL (70-99) 285mg/dL (70-99) Test 08/01/16 06:18 Glucose (Fingerstick) 332mg/dL (70-99) Microbiology 07/28/16 Blood Culture - Preliminary, Resulted NO GROWTH AFTER 3 DAYS Medications Current Medications Naloxone HCl 0.4 mg 0.4 mg 1X ONCE IV Last administered on 07/28/16 21:30; Start 07/28/16 at 21:30; Stop 07/28/16 at 21:31; Status DC Sodium Chloride 1,000 ml @ 1,000 mls/hr 1X ONCE IV Last administered on 21:30; Start 07/28/16 at 21:30; Stop 07/28/16 at 22:29; Status DC Ceftriaxone Sodium 1 gm/ Sodium Chloride 50 ml @ 100 mls/hr Q24H IV Last administered on 07/30/16 21:39; Start 07/29/16 at 21:00; Stop 07/31/16 at 17:33; Status DC Ceftriaxone Sodium 50 ml @ 100 mls/hr 1X ONCE IV Last administered on 21:35; Start 07/28/16 at 22:00; Stop 07/28/16 at 22:29; Status DC Heparin Sodium/ Dextrose 500 ml @ 0 mls/hr CONT PRN IV SEE I/O RECORD Last administered on 07/29/16 21:46; Start 07/28/16 at 22:00; Stop 07/30/16 at 07:59; Status DC Heparin Sodium (Porcine) 2,200 unit PRN Q6HRS PRN IV FOR UFH LEVEL LESS THAN 0.2 Last administered on 07/28/16 23:14; Start 07/28/16 at 22:00; Stop 07/30/16 at 08:00; Status DC Ondansetron HCl 4 mg 4 mg PRN Q8HRS PRN IV NAUSEA/VOMITING; Start 07/28/16 at 22 :15; Stop 07/29/16 at 22:14; Status DC Sodium Chloride 1,000 ml @ 125 mls/hr Q8H IV Last administered on 07/29/16 08: 16; Start 07/28/16 at 22:01; Stop 07/29/16 at 13:04; Status DC Metronidazole (FLAGYL 500Mmg PREMIX) 100 ml @ 100 mls/hr Q12HR IV Last administered on 07/31/16 21:44; Start 07/28/16 at 22:30 Hydralazine HCl (Apresoline) 10 mg PRN Q4HRS PRN IVP ELEVATED BP, SEE COMMENTS ; Start 07/29/16 at 03:00 Insulin Aspart (Novolog) 0-9 UNITS TIDWMEALS SQ Last administered on 07/31/16 17:51; Start 07/29/16 at 08:00; Stop 08/01/16 at 08:36; Status DC Dextrose 12.5 gm PRN Q15MIN PRN IV SEE COMMENTS; Start 07/29/16 at 03:00 Insulin Aspart (Novolog) 8 units 1X ONCE SQ Last administered on 07/29/16 08: 20; Start 07/29/16 at 08:30; Stop 07/29/16 at 08:31; Status DC Morphine Sulfate 2 mg PRN Q2HR PRN IV PAIN Last administered on 07/30/16 05:45 ; Start 07/29/16 at 09:00 Aspirin (Aspirin) 300 mg 1X ONCE MO Last administered on 07/29/16 13:17; Start 07/29/16 at 10:30; Stop 07/29/16 at 10:31; Status DC Heparin Sodium (Porcine) 1,800 unit PRN Q6HRS PRN IV FOR UFH LEVEL LESS THAN 0.2 Last administered on 07/29/16 10:35; Start 07/29/16 at 10:15; Stop 07/30/16 at 08:00; Status DC Metoprolol Tartrate (Lopressor) 5 mg Q6HRS IVP Last administered on 08/01/16 06:20; Start 07/29/16 at 13:00 Aspirin 150 mg 150 mg DAILY MO Last administered on 07/30/16 09:21; Start at 09:00 Sodium Chloride 1,000 ml @ 60 mls/hr [id number] IV Last administered on 07/29/16 13:25; Start 07/29/16 at 13:30; Stop 07/29/16 at 13:31; Status DC Heparin Sodium (Porcine) 5000 unit/Sodium Chloride 505 ml @ 505 mls/hr 1X PERIOP ONCE IRR Last administered on 07/29/16 15:26; Start 07/29/16 at 14:00; Stop 07/29/16 at 14:59; Status DC Cefazolin Sodium/ Sodium Chloride (Ancef/Iv Sodium Chloride 0.9% 500ml Bag) 500 ml @ 500 mls/hr 1X PERIOP ONCE IRR Last administered on 07/29/16 15:26; Start 07/29/16 at 14:00; Stop 07/29/16 at 14:59; Status DC Gelatin (Gelfoam Size 12-7mm) 1 each STK-MED ONCE .ROUTE ; Start 07/29/16 at 13: 54; Stop 07/29/16 at 13:55; Status DC Cellulose 1 each STK-MED ONCE .ROUTE ; Start 07/29/16 at 13:54; Stop 07/29/16 at 13:55; Status DC Iohexol (Omnipaque 300 Mg/ml) 50 ml STK-MED ONCE .ROUTE ; Start 07/29/16 at 13:54 ; Stop 07/29/16 at 13:55; Status DC Gelatin (Gelfoam Size 100) 1 each STK-MED ONCE .ROUTE ; Start 07/29/16 at 13:54 ; Stop 07/29/16 at 13:55; Status DC Papaverine HCl 60 mg STK-MED ONCE .ROUTE ; Start 07/29/16 at 13:54; Stop 07/29/16 at 13:55; Status DC Thrombin 20,000 unit STK-MED ONCE TP ; Start 07/29/16 at 13:54; Stop 07/29/16 at 13:55; Status DC Midazolam HCl (Versed) 2 mg STK-MED ONCE .ROUTE ; Start 07/29/16 at 14:14; Stop 07/29/16 at 14:15; Status DC Fentanyl Citrate (Fentanyl 5ml Vial) 250 mcg STK-MED ONCE .ROUTE ; Start at 14:14; Stop 07/29/16 at 14:15; Status DC Rocuronium [place] 50 mg 50 mg STK-MED ONCE .ROUTE ; Start 07/29/16 at 14:14; Stop 07/29/16 at 14:15; Status DC Propofol (Diprivan) 20 ml @ As Directed STK-MED ONCE IV ; Start 07/29/16 at 14:14 ; Stop 07/29/16 at 14:15; Status DC Dexamethasone Sodium Phosphate (Decadron) 20 mg STK-MED ONCE .ROUTE ; Start 07/29 at 14:14; Stop 07/29/16 at 14:15; Status DC Ondansetron HCl (Zofran) 4 mg STK-MED ONCE .ROUTE ; Start 07/29/16 at 14:14; Stop 07/29/16 at 14:15; Status DC Lidocaine HCl 100 mg STK-MED ONCE .ROUTE ; Start 07/29/16 at 14:15; Stop 07/29/16 at 14:16; Status DC Succinylcholine Chloride (Anectine) 200 mg STK-MED ONCE .ROUTE ; Start 07/29/16 at 14:43; Stop 07/29/16 at 14:44; Status DC Phenylephrine HCl 1 mg STK-MED ONCE IV ; Start 07/29/16 at 15:01; Stop 07/29/16 at 15:02; Status DC Ephedrine Sulfate 50 mg 50 mg STK-MED ONCE .ROUTE ; Start 07/29/16 at 15:28; Stop 07/29/16 at 15:29; Status DC Insulin Human Regular/Sodium Chloride (Novolin R Vial/ Iv Normal Saline 150ml) 151.5 ml @ 7.29 mls/hr 1X ONCE IV ; Start 07/29/16 at 16:45; Stop 07/30/16 at 12 :52; Status DC Info (Anti-Coagulation Monitoring By Pharmacy) 1 each PRN DAILY PRN MC SEE COMMENTS Last administered on 07/29/16t 17:00; Start 07/29/16 at 17:00; Stop at 12:51; Status DC Heparin Sodium (Porcine) 10,000 unit STK-MED ONCE .ROUTE ; Start 07/29/16 at 17: 02; Stop 07/29/16 at 17:03; Status DC Neostigmine Methylsulfate 5 mg STK-MED ONCE .ROUTE ; Start 07/29/16 at 20:52; Stop 07/29/16 at 20:53; Status DC Glycopyrrolate (Robinul) 1 mg STK-MED ONCE .ROUTE ; Start 07/29/16 at 20:52; Stop 07/29/16 at 20:53; Status DC Fentanyl Citrate (Fentanyl 2ml Vial) 50 mcg PRN Q5MIN PRN IV Acute Pain; Start 07/29/16 at 21:15; Stop 07/30/16 at 21:14; Status DC Morphine Sulfate 4 mg PRN Q10MIN PRN IV Moderate Pain; Start 07/29/16 at 21:15; Stop 07/30/16 at 21:14; Status DC Hydromorphone HCl (Dilaudid) 0.4 mg PRN Q10MIN PRN IV Moderate to severe pain; Start 07/29/16 at 21:15; Stop 07/30/16 at 21:14; Status DC Meperidine HCl (Demerol) 12.5 mg PRN Q5MIN PRN IV SHIVERING; Start 07/29/16 at 21:15; Stop 07/30/16 at 00:00; Status DC Prochlorperazine Edisylate (Compazine) 5 mg PRN Q6HRS PRN IV Nausea/Vomiting, 1st Choice; Start 07/29/16 at 21:15; Stop 07/30/16 at 21:14; Status DC Diphenhydramine HCl 12.5 mg 12.5 mg PRN Q2HR PRN IV ITCHING; Start 07/29/16 at 21:15; Stop 07/30/16 at 21:14; Status DC Sodium Chloride (Iv Sodium Chloride 0.45%) 1,000 ml @ 100 mls/hr Q10H IV Last administered on 07/29/16t 21:59; Start 07/29/16 at 22:00; Stop 07/30/16 at 09:41; Status DC Cefazolin Sodium/ Dextrose (Ancef 2gm Premix) 2 gm STK-MED ONCE IV ; Start at 17:35; Stop 07/30/16 at 08:53; Status DC Pantoprazole Sodium 40 mg 40 mg [id number] IVP Last administered on 08/01/16 06:29 ; Start 07/30/16 at 18:00 Sodium Chloride 1,000 ml @ 60 mls/hr [id number] IV Last administered on 07/30/16 09:47; Start 07/30/16 at 09:45; Stop 07/30/16 at 12:47; Status DC Cefazolin Sodium/ Sodium Chloride (Ancef/Iv Sodium Chloride 0.9% 500ml Bag) 500 ml @ 500 mls/hr 1X PERIOP ONCE IRR Last administered on 07/31/16 13:47; Start 07/31/16 at 06:00; Stop 07/31/16 at 06:59; Status DC Insulin Detemir (Levemir) 15 units [id number] SQ Last administered on 07/30/16 12: 57; Start 07/30/16 at 13:00; Stop 08/01/16 at 08:36; Status DC Insulin Aspart 12 units 12 units 1X ONCE SQ ; Start 07/30/16 at 12:45; Stop 07/30 at 12:47; Status DC Amino Acids/ Electrolytes/ Dextrose (Clinimix E 4.25%-5% Solution) 1,000 ml @ 80 mls/hr [id number] IV Last administered on 08/01/16 02:06; Start 07/30/16 at 13: 00 Ondansetron HCl (Zofran) 4 mg PRN Q6HRS PRN IV Nausea; Start 07/31/16 at 07:00; Stop 08/01/16 at 06:59; Status DC Fentanyl Citrate (Fentanyl 2ml Vial) 25 mcg PRN Q5MIN PRN IV MILD PAIN; Start 07/31/16 at 07:00; Stop 08/01/16 at 06:59; Status DC Fentanyl Citrate (Fentanyl 2ml Vial) 50 mcg PRN Q5MIN PRN IV MODERATE PAIN; Start 07/31/16 at 07:00; Stop 08/01/16 at 06:59; Status DC Morphine Sulfate 1 mg 1 mg PRN Q10MIN PRN IV SEVERE PAIN; Start 07/31/16 at 07: 00; Stop 08/01/16 at 06:59; Status DC Lactated Ringer's (Iv Lactated Ringers) 1,000 ml @ 30 mls/hr Q24H IV Last administered on 07/31/16 15:53; Start 07/31/16 at 07:00; Stop 07/31/16 at 18:59; Status DC Lidocaine HCl 2 ml 1X PRN PRN ID IV START; Start 07/31/16 at 07:00; Stop at 06:59; Status DC Hydromorphone HCl (Dilaudid) 0.5 mg PRN Q10MIN PRN IV SEVERE PAIN, Second choice; Start 07/31/16 at 07:00; Stop 08/01/16 at 06:59; Status DC Prochlorperazine Edisylate (Compazine) 5 mg PACU PRN PRN IV NAUSEA; Start at 07:00; Stop 08/01/16 at 06:59; Status DC Insulin Detemir (Levemir) 10 units QHS SQ Last administered on 07/31/16 21:49; Start 07/31/16 at 21:00; Stop 08/01/16 at 08:36; Status DC Enalaprilat (Vasotec) 1.25 mg Q6HRS IV ; Start 07/31/16 at 12:00; Stop 07/31/16 at 12:00; Status DC Enalaprilat (Vasotec) 0.625 mg Q6HRS IV Last administered on 08/01/16 06:16; Start 07/31/16 at 12:00 Fentanyl Citrate (Fentanyl 2ml Vial) 100 mcg STK-MED ONCE .ROUTE ; Start at 12:49; Stop 07/31/16 at 12:50; Status DC Rocuronium [place] (Zemuron) 50 mg STK-MED ONCE .ROUTE ; Start 07/31/16 at 12:49 ; Stop 07/31/16 at 12:50; Status DC Lidocaine HCl 100 mg 100 mg STK-MED ONCE .ROUTE ; Start 07/31/16 at 13:17; Stop 07/31/16 at 13:18; Status DC Propofol (Diprivan) 20 ml @ As Directed STK-MED ONCE IV ; Start 07/31/16 at 13:17 ; Stop 07/31/16 at 13:18; Status DC Succinylcholine Chloride (Anectine) 200 mg STK-MED ONCE .ROUTE ; Start 07/31/16 at 13:30; Stop 07/31/16 at 13:31; Status DC Dexamethasone Sodium Phosphate (Decadron) 20 mg STK-MED ONCE .ROUTE ; Start 07/31 at 13:42; Stop 07/31/16 at 13:43; Status DC Ondansetron HCl (Zofran) 4 mg STK-MED ONCE .ROUTE ; Start 07/31/16 at 13:42; Stop 07/31/16 at 13:43; Status DC Phenylephrine HCl 1 mg STK-MED ONCE IV ; Start 07/31/16 at 13:47; Stop 07/31/16 at 13:48; Status DC Fentanyl Citrate (Fentanyl 2ml Vial) 100 mcg STK-MED ONCE .ROUTE ; Start at 14:26; Stop 07/31/16 at 14:27; Status DC Sevoflurane (Ultane) 60 ml STK-MED ONCE IH ; Start 07/31/16 at 15:13; Stop at 15:14; Status DC Insulin Aspart (Novolog Vial) 3 unit 1X ONCE SQ ; Start 07/31/16 at 15:45; Stop 07/31/16 at 15:45; Status DC Insulin Aspart (Novolog) 3 units 1X ONCE SQ ; Start 07/31/16 at 15:45; Stop 07/31 at 15:46; Status Cancel Insulin Aspart (Novolog Vial) 100 unit STK-MED ONCE SQ ; Start 07/31/16 at 15:41 ; Stop 07/31/16 at 15:42; Status DC Insulin Aspart (Novolog Vial) 3 unit 1X ONCE SQ ; Start 07/31/16 at 16:00; Stop 07/31/16 at 16:01; Status Cancel Insulin Aspart 3 unit 3 unit 1X ONCE SQ Last administered on 07/31/16t 15:57; Start 07/31/16 at 16:00; Stop 07/31/16 at 16:01; Status DC Ceftriaxone Sodium/Sodium Chloride (Rocephin/Iv Sodium Chloride 0.9% 50ml) 50 ml @ 100 mls/hr Q24H IV ; Start 08/01/16 at 14:00 Insulin Aspart (Novolog) 0-9 UNITS Q6HRS SQ ; Start 08/01/16 at 12:00 Insulin Detemir (Levemir) 30 units QHS SQ ; Start 08/01/16 at 21:00 Active Scripts Active Reported Hydrocodone-Apap 5-325 (Hydrocodone Bit/Acetaminophen) 1 Each Tablet 1 Tab PO Q4HRS PRN Vitals/I & O Vital Sign - Last 24 Hours 07/31/16 07/31/16 07/31/16 07/31/16 11:00 12:13 15:14 15:14 Temp 97.9 98.1 97.9 98.1 Pulse 72 71 80 Resp 18 19 20 B/P 140/64 163/77 142/72 Pulse Ox 94 94 97 O2 Delivery Nasal Cannula Nasal Cannula Mask Simple Mask O2 Flow Rate 2.0 2.0 10 10 07/31/16 07/31/16 07/31/16 07/31/16 15:30 15:45 16:00 16:15 Temp 97.0 97.0 Pulse 78 79 84 76 Resp 20 20 20 20 B/P 150/67 152/69 131/67 143/61 Pulse Ox 98 99 94 94 O2 Delivery Simple Mask Simple Mask Nasal Cannula Nasal Cannula O2 Flow Rate 10 10 2 2 07/31/16 07/31/16 07/31/16 07/31/16 16:20 16:30 17:37 18:27 Temp 98.2 98.2 Pulse 70 68 65 Resp 18 18 B/P 150/66 128/58 128/58 Pulse Ox 90 92 O2 Delivery Nasal Cannula Nasal Cannula Nasal Cannula O2 Flow Rate 2 2.0 2.0 07/31/16 07/31/16 07/31/16 07/31/16 18:27 19:03 19:17 20:00 Temp 99.3 99.3 Pulse 65 72 67 Resp 20 B/P 142/64 140/67 Pulse Ox 93 O2 Delivery Nasal Cannula Nasal Cannula O2 Flow Rate 1.5 2.0 07/31/16 07/31/16 08/01/16 08/01/16 22:38 23:58 00:27 00:28 Temp 99.2 98.7 99.2 98.7 Pulse 73 77 77 Resp 22 B/P 126/62 145/72 145/72 Pulse Ox 95 O2 Delivery Nasal Cannula O2 Flow Rate 1.0 08/01/16 08/01/16 08/01/16 08/01/16 02:37 06:16 06:20 07:00 Temp 97.1 97.7 97.1 97.7 Pulse 75 72 77 58 Resp 20 16 B/P 119/63 133/56 133/56 139/67 Pulse Ox 95 94 O2 Delivery Nasal Cannula Nasal Cannula O2 Flow Rate 1.5 1.5 Intake and Output 07/31/16 07/31/16 08/01/16 15:00 23:00 07:00 Intake Total 1160 ml Output Total 412 ml 1000 ml Balance 748 ml -1000 ml Nutrition Consultation Dietary Evaluation: Recommendations by RD: Increase Calorie Intake, Protein supplementation Comments: Rec. add boost glucose controlled protein supplement TID Rec. 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
[2016-08-01] MEDS: METRONIDAZOLE 500mg PREMIX 100 ML IV SCH ×2 (09:28→20:58)
[2016-08-01] MEDS: MORPHINE SULFATE 2 MG/ML DISP.SYRIN. IV PRN ×2 (09:28→15:40)
[2016-08-01] MEDS: ASPIRIN 300 MG SUPP.RECT PR SCH (09:29)
[2016-08-01 09:54] LABS: BASO # 0.2 x10^3/uL (0.0-0.2); BASO % 1 % (0-3); EOS % 0 % (0-3); HEMATOCRIT 33.3 % (39.0-53.0); HEMOGLOBIN 10.7 g/dL (13.0-17.5); LYMPH # 0.9 x10^3/uL (1.0-4.8); LYMPH % 4 % (24-48); MEAN CORPUSCULAR HEMOGLOBIN 28 pg (25-35); MEAN CORPUSCULAR HGB CONC 32 g/dL (31-37); MEAN CORPUSCULAR VOLUME 87 fL (79-100); MONO % 11 % (0-9); NEUT % 84 % (31-73); PLATELET COUNT 176 x10^3/uL (140-400); RED BLOOD COUNT 3.82 x10^6/uL (4.30-5.70); RED CELL DISTRIBUTION WIDTH 15.2 % (11.5-14.5); WHITE BLOOD COUNT 20.7 x10^3/uL (4.0-11.0)
[2016-08-01 10:04] LABS: GFR 74.5; POTASSIUM 4.5 mmol/L (3.5-5.1)
--- NOTE | 2016-08-01 10:39 | PDOC ---
CARDIO Progress Notes Date and Time Date of Service 08/01/2016 Time of Evaluation 1027 Subjective Subjective: Other (non-verbal) Vitals Vitals Vital Signs Date Time Temp Pulse Resp B/P Pulse Ox O2 Delivery O2 Flow Rate FiO2 08/01/16 09:39 78 155/68 08/01/16 09:28 18 94 Nasal Cannula 1.5 08/01/16 07:00 97.7 97.7 Weight Weight [ ] Input and Output Intake and Output Intake and Output 08/01/16 07:00 Intake Total 1160 ml Output Total 1412 ml Balance -252 ml Intake Oral 0 ml IV Total 1160 ml Tube Feeding 0 ml Output Urine Total 1340 ml Estimated Blood Loss 72 ml Laboratory Labs Laboratory Tests Test 07/31/16 12:10 07/31/16 15:20 07/31/16 17:45 07/31/16 20:59 Glucose (Fingerstick) 219mg/dL (70-99) 247mg/dL (70-99) 265mg/dL (70-99) 285mg/dL (70-99) Test 08/01/16 06:18 08/01/16 09:45 Glucose (Fingerstick) 332mg/dL (70-99) White Blood Count 20.7x10^3/uL (4.0-11.0) Red Blood Count 3.82x10^6/uL (4.30-5.70) Hemoglobin 10.7g/dL (13.0-17.5) Hematocrit 33.3% (39.0-53.0) Mean Corpuscular Volume 87fL (79-100) Mean Corpuscular Hemoglobin 28pg (25-35) Mean Corpuscular Hemoglobin Concent 32g/dL (31-37) Red Cell Distribution Width 15.2% (11.5-14.5) Platelet Count 176x10^3/uL (140-400) Neutrophils (%) (Auto) 84% (31-73) Lymphocytes (%) (Auto) 4% (24-48) Monocytes (%) (Auto) 11% (0-9) Eosinophils (%) (Auto) 0% (0-3) Basophils (%) (Auto) 1% (0-3) Neutrophils # (Auto) 17.4x10^3uL (1.8-7.7) Lymphocytes # (Auto) 0.9x10^3/uL (1.0-4.8) Monocytes # (Auto) 2.2x10^3/uL (0.0-1.1) Eosinophils # (Auto) 0.0x10^3/uL (0.0-0.7) Basophils # (Auto) 0.2x10^3/uL (0.0-0.2) Sodium Level 144mmol/L (136-145) Potassium Level 4.5mmol/L (3.5-5.1) Chloride Level 106mmol/L (98-107) Carbon Dioxide Level 29mmol/L (21-32) Anion Gap 9 (6-14) Blood Urea Nitrogen 36mg/dL (8-26) Creatinine 1.0mg/dL (0.7-1.3) Estimated GFR (Cockcroft-Gault) 74.5 Glucose Level 358mg/dL (70-99) Calcium Level 9.0mg/dL (8.5-10.1) Microbiology Micro Microbiology 07/28/16 Blood Culture - Preliminary, Resulted NO GROWTH AFTER 3 DAYS Physical Exam HEENT: Neck Supple W Full Motion Chest: Symmetric LUNGS: Other (bibasilar crakles anteriorly) Heart: S1S2, RRR (SR no rhythm ectopies), murmurs (2/6 systolic murmur to LLS border), other (tele: SR) Abdomen: Soft N/T Extremities: Other (left AKA with dressing; right foot warm) Neurology: alert, non-verbal Assessment Assessment 1. NSTEMI: troponin peaked at 1.23; ? demand mediated continue rectal aspirin with IV beta-blockers Remains unable to establish baseline cardiac function due inability to contact any next of kin thus no old records. No evidence of family 2. CAD CABG in the past, unknown date 3. Cardiomyopathy; presumed ischemic LVEF depressed @ 30% with basal septal hypokinesis treated with IV beta-blockers and ACEI 4. Chronic systolic CHF depressed LVEF reasonably compensated 5. 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 HTN: labile FERMIN SPANN APRN Aug 01, 2016 10:39
--- NOTE | 2016-08-01 11:30 | PDOC ---
Objective: Vital Signs: Vital Signs Date Time Temp Pulse Resp B/P Pulse Ox O2 Delivery O2 Flow Rate FiO2 08/01/16 09:39 78 155/68 08/01/16 09:28 18 94 Nasal Cannula 1.5 08/01/16 07:00 97.7 97.7 Labs: Laboratory Tests Test 07/31/16 12:10 07/31/16 15:20 07/31/16 17:45 07/31/16 20:59 Glucose (Fingerstick) 219mg/dL 247mg/dL 265mg/dL 285mg/dL Test 08/01/16 06:18 08/01/16 09:45 Glucose (Fingerstick) 332mg/dL White Blood Count 20.7x10^3/uL Red Blood Count 3.82x10^6/uL Hemoglobin 10.7g/dL Hematocrit 33.3% Mean Corpuscular Volume 87fL Mean Corpuscular Hemoglobin 28pg Mean Corpuscular Hemoglobin Concent 32g/dL Red Cell Distribution Width 15.2% Platelet Count 176x10^3/uL Neutrophils (%) (Auto) 84% Lymphocytes (%) (Auto) 4% Monocytes (%) (Auto) 11% Eosinophils (%) (Auto) 0% Basophils (%) (Auto) 1% Neutrophils # (Auto) 17.4x10^3uL Lymphocytes # (Auto) 0.9x10^3/uL Monocytes # (Auto) 2.2x10^3/uL Eosinophils # (Auto) 0.0x10^3/uL Basophils # (Auto) 0.2x10^3/uL Sodium Level 144mmol/L Potassium Level 4.5mmol/L Chloride Level 106mmol/L Carbon Dioxide Level 29mmol/L Anion Gap 9 Blood Urea Nitrogen 36mg/dL Creatinine 1.0mg/dL Estimated GFR (Cockcroft-Gault) 74.5 Glucose Level 358mg/dL Calcium Level 9.0mg/dL PE: GEN: NAD w/ mittens LUNGS: crackles HEART: RRR +murm ABD: soft ?tender NEURO/PSYCH: awake, says yes re: pain A/P: Severe PAD/LLE ischemia w/p AKA 07/31 Transaminitis - improved -hepatic infarct -- Other per Dr. Ojeda. KANCHAN BALLARD Aug 01, 2016 11:30
--- NOTE | 2016-08-01 14:54 | PDOC ---
Provider Note Provider Note Vascular Surgery: POD#1 s/p L AKA Patient is resting in bed. VSS Labs: hgb stable, persistent leukocytosis L leg - dressing clean and intact Plan: Will change the dressing on POD#3, unless bleeding or concern for infection Continue medical care and discharge planning ERASTO CLEMONS MD Aug 01, 2016 14:54
[2016-08-01] MEDS: CEFTRIAXONE SODIUM 1 GM in IV NORMAL SALINE 50ML 50 ML IV SCH (15:39)
--- NOTE | 2016-08-01 16:52 | PDOC ---
PROGRESS NOTES Assessment Assessment Metabolic encephalopathy. Hyperglycemia, glucose 455 NSTEMI? CAD S/p CABG. PVD DM HTN HLD CKD Elevated hepatic function. 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 RECOMMENDATIONS/PLAN: HCT performed no acute findings. Treat medical, cardiac and surgical diseases. OT/PT Neurology will follow. HISTORY OF THE PRESENT ILLNESS: 66-y-old male patient with above medical diseases had MS changes and decreased response and was brought to the ER of [facility]. Further evaluation showed left LE vascular disease. neurology was called for consultation due to MS changes. His left LE was amputated now. PAST MEDICAL HISTORY: Please see above. PAST SURGERY HISTORY: LE vascular surgery in this admission. ALLERGY: Reviewed. MEDICATIONS: Refer to [facility] FAMILY HISTORY: Non contributory. SOCIAL HISTORY: Unknown hx of his smoking, drinking, and illicit drug use.status. REVIEW OF SYSTEMS: Constitutional: No malnutrition, weight loss, cachexia. Head: No traumatic brain or head injury. Skin: No edema, or rash. Ear: No infection, tinnitus. Eyes: No vision loss or color blindness. Nose: No bleeding or purulent discharges. Hearing: No hearing decrease. Neck: No injury. Cardiac: CAD, s/p CABG, HTN, HLD. Pulmonary: No COPD. GI: No GI ulcer, GI bleeding. Urinary/genital: UTI. Endocrinologic: Diabetes Mellitus. Skeletomuscular: Right toe amputation. Neurological: see HP. Psychiatric: Unknown drug use/abuse. Otherwise, not [id number] review of systems. PHYSICAL EXAMINATION: General appearance is in subacute distress. HEENT: Normocephalic and nontraumatic. Eyes, nose, ears, and throat are unremarkable. Neck is supple. No lymphadenopathy. No crepitus. Cardiovascular: S1, S2, regular rate and rhythm. Pulmonary: Clear to auscultation bilaterally. Abdomen: Bowel sounds are positive. Extremities: No rash, lesions. No restriction of range of motion NEUROLOGICAL EXAMINATION: Drowsiness but arousable. Unable to communicate briefly. Able to follow a few commands. Not oriented to time, but knows place and person. PERRL. EOMI very slow. CN: no acute focal findings. Muscle tone: fluctuated. Muscle strength: moves all extremities except left LE. DTR: 1-2 Plantar reflex: Right tor amputation. Left LE AKA. Gait: Unable to walk. Sensory exam: withdraws to stimuli. Not able to access cerebellar signs. Objective Objective Vital Signs Date Time Temp Pulse Resp B/P Pulse Ox O2 Delivery O2 Flow Rate FiO2 08/01/16 16:10 18 95 Nasal Cannula 1.5 08/01/16 15:00 98.2 73 137/62 98.2 Intake and Output 08/01/16 07:00 Intake Total 1160 ml Output Total 1412 ml Balance -252 ml Intake Oral 0 ml IV Total 1160 ml Tube Feeding 0 ml Output Urine Total 1340 ml Estimated Blood Loss 72 ml Vitals Signs Vitals VS - Last 72 Hours, by Label Date Time Temp Pulse Resp B/P Pulse Ox O2 Delivery O2 Flow Rate FiO2 08/01/16 16:10 18 95 Nasal Cannula 1.5 08/01/16 15:40 18 95 Nasal Cannula 1.5 08/01/16 15:00 98.2 73 16 137/62 95 Nasal Cannula 1.5 98.2 08/01/16 13:32 75 149/59 08/01/16 13:31 82 149/59 08/01/16 11:00 97.9 68 16 123/68 94 Nasal Cannula 1.5 97.9 08/01/16 09:39 78 155/68 08/01/16 09:28 18 94 Nasal Cannula 1.5 08/01/16 07:00 97.7 58 16 139/67 94 Nasal Cannula 1.5 97.7 08/01/16 06:20 77 133/56 08/01/16 06:16 72 133/56 08/01/16 02:37 97.1 75 20 119/63 95 Nasal Cannula 1.5 97.1 08/01/16 00:28 77 145/72 08/01/16 00:27 77 145/72 07/31/16 23:58 98.7 98.7 07/31/16 22:38 99.2 73 22 126/62 95 Nasal Cannula 1.0 99.2 07/31/16 20:00 Nasal Cannula 2.0 07/31/16 19:17 99.3 67 20 140/67 93 Nasal Cannula 1.5 99.3 07/31/16 19:03 72 142/64 07/31/16 18:27 65 07/31/16 18:27 65 128/58 07/31/16 17:37 68 18 128/58 92 Nasal Cannula 2.0 07/31/16 16:30 98.2 70 18 150/66 90 Nasal Cannula 2.0 98.2 07/31/16 16:20 Nasal Cannula 2 07/31/16 16:15 97.0 76 20 143/61 94 Nasal Cannula 2 97.0 07/31/16 16:00 84 20 131/67 94 Nasal Cannula 2 07/31/16 15:45 79 20 152/69 99 Simple Mask 10 07/31/16 15:30 78 20 150/67 98 Simple Mask 10 07/31/16 15:14 80 20 142/72 97 Simple Mask 10 07/31/16 15:14 Mask 10 07/31/16 12:13 98.1 71 19 163/77 94 Nasal Cannula 2.0 98.1 07/31/16 11:00 97.9 72 18 140/64 94 Nasal Cannula 2.0 97.9 07/31/16 08:15 Nasal Cannula 2.0 07/31/16 07:50 98.2 74 18 160/63 92 Nasal Cannula 2.0 98.2 Laboratory Laboratory Laboratory Tests Test 07/31/16 17:45 07/31/16 20:59 08/01/16 06:18 08/01/16 09:45 Glucose (Fingerstick) 265mg/dL (70-99) 285mg/dL (70-99) 332mg/dL (70-99) White Blood Count 20.7x10^3/uL (4.0-11.0) Red Blood Count 3.82x10^6/uL (4.30-5.70) Hemoglobin 10.7g/dL (13.0-17.5) Hematocrit 33.3% (39.0-53.0) Mean Corpuscular Volume 87fL (79-100) Mean Corpuscular Hemoglobin 28pg (25-35) Mean Corpuscular Hemoglobin Concent 32g/dL (31-37) Red Cell Distribution Width 15.2% (11.5-14.5) Platelet Count 176x10^3/uL (140-400) Neutrophils (%) (Auto) 84% (31-73) Lymphocytes (%) (Auto) 4% (24-48) Monocytes (%) (Auto) 11% (0-9) Eosinophils (%) (Auto) 0% (0-3) Basophils (%) (Auto) 1% (0-3) Neutrophils # (Auto) 17.4x10^3uL (1.8-7.7) Lymphocytes # (Auto) 0.9x10^3/uL (1.0-4.8) Monocytes # (Auto) 2.2x10^3/uL (0.0-1.1) Eosinophils # (Auto) 0.0x10^3/uL (0.0-0.7) Basophils # (Auto) 0.2x10^3/uL (0.0-0.2) Sodium Level 144mmol/L (136-145) Potassium Level 4.5mmol/L (3.5-5.1) Chloride Level 106mmol/L (98-107) Carbon Dioxide Level 29mmol/L (21-32) Anion Gap 9 (6-14) Blood Urea Nitrogen 36mg/dL (8-26) Creatinine 1.0mg/dL (0.7-1.3) Estimated GFR (Cockcroft-Gault) 74.5 Glucose Level 358mg/dL (70-99) Calcium Level 9.0mg/dL (8.5-10.1) Microbiology 07/28/16 Blood Culture - Preliminary, Resulted NO GROWTH AFTER 3 DAYS Medication Medications Current Medications Ceftriaxone Sodium/Sodium Chloride (Rocephin/Iv Sodium Chloride 0.9% 50ml) 50 ml @ 100 mls/hr Q24H IV Last administered on 08/01/16 15:39; Start 08/01/16 at 14:00 Insulin Aspart (Novolog) 0-9 UNITS Q6HRS SQ Last administered on 08/01/16 12: 30; Start 08/01/16 at 12:00 Insulin Detemir (Levemir) 30 units QHS SQ ; Start 08/01/16 at 21:00 Insulin Detemir 10 units 10 units QHS SQ Last administered on 07/31/16 21:49; Start 07/31/16 at 21:00; Stop 08/01/16 at 08:36; Status DC Comment Review of Relevant I have reviewed the following items chris (where applicable) has been applied. HECTOR SAWYER MD Aug 01, 2016 16:51
[2016-08-01] MEDS: INSULIN DETEMIR 300 UNITS/3 ML INSULN.PEN. SQ SCH (21:06)
[2016-08-02] MEDS: INSULIN ASPART 300 UNITS/3 ML INSULN.PEN SQ SCH ×5 (00:02→23:22)
[2016-08-02] MEDS: METOPROLOL TARTRATE 5 MG/5 ML VIAL. IVP SCH ×5 (00:03→23:23)
[2016-08-02] MEDS: ENALAPRILAT 1.25 MG/ML VIAL. IV SCH ×5 (00:04→23:23)
[2016-08-02 03:24] VITALS: BP 140/77
[2016-08-02] MEDS: AA 4.25%/CALCIUM/LYTES/D5W 1,000 ML IV SCH ×2 (05:25→17:50)
[2016-08-02 07:55] VITALS: BP 154/74
[2016-08-02] MEDS: METRONIDAZOLE 500mg PREMIX 100 ML IV SCH ×2 (09:50→21:17)
[2016-08-02] MEDS: PANTOPRAZOLE IV PUSH 40 MG VIAL. IVP SCH ×2 (09:55→21:17)
[2016-08-02] MEDS: ASPIRIN 300 MG SUPP.RECT PR SCH (09:55)
[2016-08-02 10:02] VITALS: BP 175/83
--- NOTE | 2016-08-02 14:05 | PDOC ---
PROGRESS NOTES Assessment Problems Medical Problems: (1) Altered mental status Status: Acute (2) Dehydration Status: Acute (3) NSTEMI (non-ST elevated myocardial infarction) Status: Acute Metabolic encephalopathy. Plan will follow Subjective no complaints Objective Vital Signs Date Time Temp Pulse Resp B/P Pulse Ox O2 Delivery O2 Flow Rate FiO2 08/02/16 13:03 75 145/70 08/02/16 10:02 97.8 20 96 Nasal Cannula 2.0 97.8 Intake and Output 08/02/16 07:00 Intake Total 960 ml Output Total 2375 ml Balance -1415 ml IV Total 960 ml Output Urine Total 2375 ml PHYSICAL EXAM Drowsy, arouses easily, oriented to person and "Hospital." PERRL. EOMI. CN: no focal findings. Muscle tone: normal. Muscle strength: moves all extremities, mittens in place DTR: 1+ Plantar reflex: flexor, LLE AKA Gait: not examined in bed. Sensory exam: no abnormal findings. No cerebellar signs elicited. Review of Relevant I have reviewed the following items chris (where applicable) has been applied. Labs Laboratory Tests Test 07/31/16 15:20 07/31/16 17:45 07/31/16 20:59 08/01/16 06:18 Glucose (Fingerstick) 247mg/dL (70-99) 265mg/dL (70-99) 285mg/dL (70-99) 332mg/dL (70-99) Test 08/01/16 09:45 08/01/16 12:15 08/01/16 18:36 08/01/16 20:58 White Blood Count 20.7x10^3/uL (4.0-11.0) Red Blood Count 3.82x10^6/uL (4.30-5.70) Hemoglobin 10.7g/dL (13.0-17.5) Hematocrit 33.3% (39.0-53.0) Mean Corpuscular Volume 87fL (79-100) Mean Corpuscular Hemoglobin 28pg (25-35) Mean Corpuscular Hemoglobin Concent 32g/dL (31-37) Red Cell Distribution Width 15.2% (11.5-14.5) Platelet Count 176x10^3/uL (140-400) Neutrophils (%) (Auto) 84% (31-73) Lymphocytes (%) (Auto) 4% (24-48) Monocytes (%) (Auto) 11% (0-9) Eosinophils (%) (Auto) 0% (0-3) Basophils (%) (Auto) 1% (0-3) Neutrophils # (Auto) 17.4x10^3uL (1.8-7.7) Lymphocytes # (Auto) 0.9x10^3/uL (1.0-4.8) Monocytes # (Auto) 2.2x10^3/uL (0.0-1.1) Eosinophils # (Auto) 0.0x10^3/uL (0.0-0.7) Basophils # (Auto) 0.2x10^3/uL (0.0-0.2) Sodium Level 144mmol/L (136-145) Potassium Level 4.5mmol/L (3.5-5.1) Chloride Level 106mmol/L (98-107) Carbon Dioxide Level 29mmol/L (21-32) Anion Gap 9 (6-14) Blood Urea Nitrogen 36mg/dL (8-26) Creatinine 1.0mg/dL (0.7-1.3) Estimated GFR (Cockcroft-Gault) 74.5 Glucose Level 358mg/dL (70-99) Calcium Level 9.0mg/dL (8.5-10.1) Glucose (Fingerstick) 319mg/dL (70-99) 294mg/dL (70-99) 293mg/dL (70-99) Test 08/01/16 23:45 08/02/16 05:13 08/02/16 11:58 Glucose (Fingerstick) 210mg/dL (70-99) 176mg/dL (70-99) 178mg/dL (70-99) Laboratory Tests Test 08/01/16 18:36 08/01/16 20:58 08/01/16 23:45 08/02/16 05:13 Glucose (Fingerstick) 294mg/dL (70-99) 293mg/dL (70-99) 210mg/dL (70-99) 176mg/dL (70-99) Test 08/02/16 11:58 Glucose (Fingerstick) 178mg/dL (70-99) Microbiology 07/28/16 Blood Culture - Preliminary, Resulted NO GROWTH AFTER 4 DAYS Medications Current Medications Naloxone HCl 0.4 mg 0.4 mg 1X ONCE IV Last administered on 07/28/16 21:30; Start 07/28/16 at 21:30; Stop 07/28/16 at 21:31; Status DC Sodium Chloride 1,000 ml @ 1,000 mls/hr 1X ONCE IV Last administered on 21:30; Start 07/28/16 at 21:30; Stop 07/28/16 at 22:29; Status DC Ceftriaxone Sodium 1 gm/ Sodium Chloride 50 ml @ 100 mls/hr Q24H IV Last administered on 07/30/16 21:39; Start 07/29/16 at 21:00; Stop 07/31/16 at 17:33; Status DC Ceftriaxone Sodium 50 ml @ 100 mls/hr 1X ONCE IV Last administered on 21:35; Start 07/28/16 at 22:00; Stop 07/28/16 at 22:29; Status DC Heparin Sodium/ Dextrose 500 ml @ 0 mls/hr CONT PRN IV SEE I/O RECORD Last administered on 07/29/16 21:46; Start 07/28/16 at 22:00; Stop 07/30/16 at 07:59; Status DC Heparin Sodium (Porcine) 2,200 unit PRN Q6HRS PRN IV FOR UFH LEVEL LESS THAN 0.2 Last administered on 07/28/16 23:14; Start 07/28/16 at 22:00; Stop 07/30/16 at 08:00; Status DC Ondansetron HCl 4 mg 4 mg PRN Q8HRS PRN IV NAUSEA/VOMITING; Start 07/28/16 at 22 :15; Stop 07/29/16 at 22:14; Status DC Sodium Chloride 1,000 ml @ 125 mls/hr Q8H IV Last administered on 07/29/16 08: 16; Start 07/28/16 at 22:01; Stop 07/29/16 at 13:04; Status DC Metronidazole (FLAGYL 500Mmg PREMIX) 100 ml @ 100 mls/hr Q12HR IV Last administered on 08/02/16 09:50; Start 07/28/16 at 22:30 Hydralazine HCl (Apresoline) 10 mg PRN Q4HRS PRN IVP ELEVATED BP, SEE COMMENTS ; Start 07/29/16 at 03:00 Insulin Aspart (Novolog) 0-9 UNITS TIDWMEALS SQ Last administered on 07/31/16 17:51; Start 07/29/16 at 08:00; Stop 08/01/16 at 08:36; Status DC Dextrose 12.5 gm PRN Q15MIN PRN IV SEE COMMENTS; Start 07/29/16 at 03:00 Insulin Aspart (Novolog) 8 units 1X ONCE SQ Last administered on 07/29/16 08: 20; Start 07/29/16 at 08:30; Stop 07/29/16 at 08:31; Status DC Morphine Sulfate 2 mg PRN Q2HR PRN IV PAIN Last administered on 08/01/16 15:40 ; Start 07/29/16 at 09:00 Aspirin (Aspirin) 300 mg 1X ONCE TN Last administered on 07/29/16 13:17; Start 07/29/16 at 10:30; Stop 07/29/16 at 10:31; Status DC Heparin Sodium (Porcine) 1,800 unit PRN Q6HRS PRN IV FOR UFH LEVEL LESS THAN 0.2 Last administered on 07/29/16 10:35; Start 07/29/16 at 10:15; Stop 07/30/16 at 08:00; Status DC Metoprolol Tartrate (Lopressor) 5 mg Q6HRS IVP Last administered on 08/02/16 13:02; Start 07/29/16 at 13:00 Aspirin 150 mg 150 mg DAILY TN Last administered on 08/02/16 09:55; Start 07/30 at 09:00 Sodium Chloride 1,000 ml @ 60 mls/hr [id number] IV Last administered on 07/29/16 13:25; Start 07/29/16 at 13:30; Stop 07/29/16 at 13:31; Status DC Heparin Sodium (Porcine) 5000 unit/Sodium Chloride 505 ml @ 505 mls/hr 1X PERIOP ONCE IRR Last administered on 07/29/16 15:26; Start 07/29/16 at 14:00; Stop 07/29/16 at 14:59; Status DC Cefazolin Sodium/ Sodium Chloride (Ancef/Iv Sodium Chloride 0.9% 500ml Bag) 500 ml @ 500 mls/hr 1X PERIOP ONCE IRR Last administered on 07/29/16t 15:26; Start 07/29/16 at 14:00; Stop 07/29/16 at 14:59; Status DC Gelatin (Gelfoam Size 12-7mm) 1 each STK-MED ONCE .ROUTE ; Start 07/29/16 at 13: 54; Stop 07/29/16 at 13:55; Status DC Cellulose 1 each STK-MED ONCE .ROUTE ; Start 07/29/16 at 13:54; Stop 07/29/16 at 13:55; Status DC Iohexol (Omnipaque 300 Mg/ml) 50 ml STK-MED ONCE .ROUTE ; Start 07/29/16 at 13:54 ; Stop 07/29/16 at 13:55; Status DC Gelatin (Gelfoam Size 100) 1 each STK-MED ONCE .ROUTE ; Start 07/29/16 at 13:54 ; Stop 07/29/16 at 13:55; Status DC Papaverine HCl 60 mg STK-MED ONCE .ROUTE ; Start 07/29/16 at 13:54; Stop 07/29/16 at 13:55; Status DC Thrombin 20,000 unit STK-MED ONCE TP ; Start 07/29/16 at 13:54; Stop 07/29/16 at 13:55; Status DC Midazolam HCl (Versed) 2 mg STK-MED ONCE .ROUTE ; Start 07/29/16 at 14:14; Stop 07/29/16 at 14:15; Status DC Fentanyl Citrate (Fentanyl 5ml Vial) 250 mcg STK-MED ONCE .ROUTE ; Start at 14:14; Stop 07/29/16 at 14:15; Status DC Rocuronium Vaughan 50 mg 50 mg STK-MED ONCE .ROUTE ; Start 07/29/16 at 14:14; Stop 07/29/16 at 14:15; Status DC Propofol (Diprivan) 20 ml @ As Directed STK-MED ONCE IV ; Start 07/29/16 at 14:14 ; Stop 07/29/16 at 14:15; Status DC Dexamethasone Sodium Phosphate (Decadron) 20 mg STK-MED ONCE .ROUTE ; Start 07/29 at 14:14; Stop 07/29/16 at 14:15; Status DC Ondansetron HCl (Zofran) 4 mg STK-MED ONCE .ROUTE ; Start 07/29/16 at 14:14; Stop 07/29/16 at 14:15; Status DC Lidocaine HCl 100 mg STK-MED ONCE .ROUTE ; Start 07/29/16 at 14:15; Stop 07/29/16 at 14:16; Status DC Succinylcholine Chloride (Anectine) 200 mg STK-MED ONCE .ROUTE ; Start 07/29/16 at 14:43; Stop 07/29/16 at 14:44; Status DC Phenylephrine HCl 1 mg STK-MED ONCE IV ; Start 07/29/16 at 15:01; Stop 07/29/16 at 15:02; Status DC Ephedrine Sulfate 50 mg 50 mg STK-MED ONCE .ROUTE ; Start 07/29/16 at 15:28; Stop 07/29/16 at 15:29; Status DC Insulin Human Regular/Sodium Chloride (Novolin R Vial/ Iv Normal Saline 150ml) 151.5 ml @ 7.29 mls/hr 1X ONCE IV ; Start 07/29/16 at 16:45; Stop 07/30/16 at 12 :52; Status DC Info (Anti-Coagulation Monitoring By Pharmacy) 1 each PRN DAILY PRN MC SEE COMMENTS Last administered on 07/29/16t 17:00; Start 07/29/16 at 17:00; Stop at 12:51; Status DC Heparin Sodium (Porcine) 10,000 unit STK-MED ONCE .ROUTE ; Start 07/29/16 at 17: 02; Stop 07/29/16 at 17:03; Status DC Neostigmine Methylsulfate 5 mg STK-MED ONCE .ROUTE ; Start 07/29/16 at 20:52; Stop 07/29/16 at 20:53; Status DC Glycopyrrolate (Robinul) 1 mg STK-MED ONCE .ROUTE ; Start 07/29/16 at 20:52; Stop 07/29/16 at 20:53; Status DC Fentanyl Citrate (Fentanyl 2ml Vial) 50 mcg PRN Q5MIN PRN IV Acute Pain; Start 07/29/16 at 21:15; Stop 07/30/16 at 21:14; Status DC Morphine Sulfate 4 mg PRN Q10MIN PRN IV Moderate Pain; Start 07/29/16 at 21:15; Stop 07/30/16 at 21:14; Status DC Hydromorphone HCl (Dilaudid) 0.4 mg PRN Q10MIN PRN IV Moderate to severe pain; Start 07/29/16 at 21:15; Stop 07/30/16 at 21:14; Status DC Meperidine HCl (Demerol) 12.5 mg PRN Q5MIN PRN IV SHIVERING; Start 07/29/16 at 21:15; Stop 07/30/16 at 00:00; Status DC Prochlorperazine Edisylate (Compazine) 5 mg PRN Q6HRS PRN IV Nausea/Vomiting, 1st Choice; Start 07/29/16 at 21:15; Stop 07/30/16 at 21:14; Status DC Diphenhydramine HCl 12.5 mg 12.5 mg PRN Q2HR PRN IV ITCHING; Start 07/29/16 at 21:15; Stop 07/30/16 at 21:14; Status DC Sodium Chloride (Iv Sodium Chloride 0.45%) 1,000 ml @ 100 mls/hr Q10H IV Last administered on 07/29/16 21:59; Start 07/29/16 at 22:00; Stop 07/30/16 at 09:41; Status DC Cefazolin Sodium/ Dextrose (Ancef 2gm Premix) 2 gm STK-MED ONCE IV ; Start at 17:35; Stop 07/30/16 at 08:53; Status DC Pantoprazole Sodium 40 mg 40 mg [id number] IVP Last administered on 08/01/16 17:18 ; Start 07/30/16 at 18:00; Stop 08/01/16 at 20:26; Status DC Sodium Chloride 1,000 ml @ 60 mls/hr [id number] IV Last administered on 07/30/16 09:47; Start 07/30/16 at 09:45; Stop 07/30/16 at 12:47; Status DC Cefazolin Sodium/ Sodium Chloride (Ancef/Iv Sodium Chloride 0.9% 500ml Bag) 500 ml @ 500 mls/hr 1X PERIOP ONCE IRR Last administered on 07/31/16 13:47; Start 07/31/16 at 06:00; Stop 07/31/16 at 06:59; Status DC Insulin Detemir (Levemir) 15 units [id number] SQ Last administered on 07/30/16 12: 57; Start 07/30/16 at 13:00; Stop 08/01/16 at 08:36; Status DC Insulin Aspart 12 units 12 units 1X ONCE SQ ; Start 07/30/16 at 12:45; Stop 07/30 at 12:47; Status DC Amino Acids/ Electrolytes/ Dextrose (Clinimix E 4.25%-5% Solution) 1,000 ml @ 80 mls/hr [id number] IV Last administered on 08/02/16 05:25; Start 07/30/16 at 13: 00 Ondansetron HCl (Zofran) 4 mg PRN Q6HRS PRN IV Nausea; Start 07/31/16 at 07:00; Stop 08/01/16 at 06:59; Status DC Fentanyl Citrate (Fentanyl 2ml Vial) 25 mcg PRN Q5MIN PRN IV MILD PAIN; Start 07/31/16 at 07:00; Stop 08/01/16 at 06:59; Status DC Fentanyl Citrate (Fentanyl 2ml Vial) 50 mcg PRN Q5MIN PRN IV MODERATE PAIN; Start 07/31/16 at 07:00; Stop 08/01/16 at 06:59; Status DC Morphine Sulfate 1 mg 1 mg PRN Q10MIN PRN IV SEVERE PAIN; Start 07/31/16 at 07: 00; Stop 08/01/16 at 06:59; Status DC Lactated Ringer's (Iv Lactated Ringers) 1,000 ml @ 30 mls/hr Q24H IV Last administered on 07/31/16 15:53; Start 07/31/16 at 07:00; Stop 07/31/16 at 18:59; Status DC Lidocaine HCl 2 ml 1X PRN PRN ID IV START; Start 07/31/16 at 07:00; Stop at 06:59; Status DC Hydromorphone HCl (Dilaudid) 0.5 mg PRN Q10MIN PRN IV SEVERE PAIN, Second choice; Start 07/31/16 at 07:00; Stop 08/01/16 at 06:59; Status DC Prochlorperazine Edisylate (Compazine) 5 mg PACU PRN PRN IV NAUSEA; Start at 07:00; Stop 08/01/16 at 06:59; Status DC Insulin Detemir (Levemir) 10 units QHS SQ Last administered on 07/31/16t 21:49; Start 07/31/16 at 21:00; Stop 08/01/16 at 08:36; Status DC Enalaprilat (Vasotec) 1.25 mg Q6HRS IV ; Start 07/31/16 at 12:00; Stop 07/31/16 at 12:00; Status DC Enalaprilat (Vasotec) 0.625 mg Q6HRS IV Last administered on 08/02/16 13:03; Start 07/31/16 at 12:00 Fentanyl Citrate (Fentanyl 2ml Vial) 100 mcg STK-MED ONCE .ROUTE ; Start at 12:49; Stop 07/31/16 at 12:50; Status DC Rocuronium Vaughan (Zemuron) 50 mg STK-MED ONCE .ROUTE ; Start 07/31/16 at 12:49 ; Stop 07/31/16 at 12:50; Status DC Lidocaine HCl 100 mg 100 mg STK-MED ONCE .ROUTE ; Start 07/31/16 at 13:17; Stop 07/31/16 at 13:18; Status DC Propofol (Diprivan) 20 ml @ As Directed STK-MED ONCE IV ; Start 07/31/16 at 13:17 ; Stop 07/31/16 at 13:18; Status DC Succinylcholine Chloride (Anectine) 200 mg STK-MED ONCE .ROUTE ; Start 07/31/16 at 13:30; Stop 07/31/16 at 13:31; Status DC Dexamethasone Sodium Phosphate (Decadron) 20 mg STK-MED ONCE .ROUTE ; Start 07/31 at 13:42; Stop 07/31/16 at 13:43; Status DC Ondansetron HCl (Zofran) 4 mg STK-MED ONCE .ROUTE ; Start 07/31/16 at 13:42; Stop 07/31/16 at 13:43; Status DC Phenylephrine HCl 1 mg STK-MED ONCE IV ; Start 07/31/16 at 13:47; Stop 07/31/16 at 13:48; Status DC Fentanyl Citrate (Fentanyl 2ml Vial) 100 mcg STK-MED ONCE .ROUTE ; Start at 14:26; Stop 07/31/16 at 14:27; Status DC Sevoflurane (Ultane) 60 ml STK-MED ONCE IH ; Start 07/31/16 at 15:13; Stop at 15:14; Status DC Insulin Aspart (Novolog Vial) 3 unit 1X ONCE SQ ; Start 07/31/16 at 15:45; Stop 07/31/16 at 15:45; Status DC Insulin Aspart (Novolog) 3 units 1X ONCE SQ ; Start 07/31/16 at 15:45; Stop 07/31 at 15:46; Status Cancel Insulin Aspart (Novolog Vial) 100 unit STK-MED ONCE SQ ; Start 07/31/16 at 15:41 ; Stop 07/31/16 at 15:42; Status DC Insulin Aspart (Novolog Vial) 3 unit 1X ONCE SQ ; Start 07/31/16 at 16:00; Stop 07/31/16 at 16:01; Status Cancel Insulin Aspart 3 unit 3 unit 1X ONCE SQ Last administered on 07/31/16 15:57; Start 07/31/16 at 16:00; Stop 07/31/16 at 16:01; Status DC Ceftriaxone Sodium/Sodium Chloride (Rocephin/Iv Sodium Chloride 0.9% 50ml) 50 ml @ 100 mls/hr Q24H IV Last administered on 08/01/16 15:39; Start 08/01/16 at 14:00 Insulin Aspart (Novolog) 0-9 UNITS Q6HRS SQ Last administered on 08/02/16 05: 27; Start 08/01/16 at 12:00 Insulin Detemir (Levemir) 30 units QHS SQ Last administered on 08/01/16 21:06 ; Start 08/01/16 at 21:00 Pantoprazole Sodium (Protonix Vial) 40 mg BID IVP Last administered on 09:55; Start 08/01/16 at 21:00 Active Scripts Active Reported Hydrocodone-Apap 5-325 (Hydrocodone Bit/Acetaminophen) 1 Each Tablet 1 Tab PO Q4HRS PRN Vitals/I & O Vital Sign - Last 24 Hours 08/01/16 08/01/16 08/01/16 08/01/16 15:00 15:40 16:10 19:34 Temp 98.2 98.5 98.2 98.5 Pulse 73 86 Resp 16 18 18 20 B/P 137/62 158/73 Pulse Ox 95 95 95 95 O2 Delivery Nasal Cannula Nasal Cannula Nasal Cannula Nasal Cannula O2 Flow Rate 1.5 1.5 1.5 2.0 08/01/16 08/01/16 08/01/16 08/01/16 19:43 19:44 20:13 23:27 Temp 99.3 99.3 Pulse 86 86 63 Resp 16 B/P 158/73 158/73 136/48 Pulse Ox 95 O2 Delivery Nasal Cannula Nasal Cannula O2 Flow Rate 2.0 2.0 08/02/16 08/02/16 08/02/16 08/02/16 00:03 00:04 03:24 05:24 Temp 97.9 97.9 Pulse 63 63 74 69 Resp 22 B/P 136/48 136/48 140/77 168/75 Pulse Ox 94 O2 Delivery Nasal Cannula O2 Flow Rate 2.0 08/02/16 08/02/16 08/02/16 08/02/16 05:25 07:55 10:02 13:02 Temp 97.6 97.8 97.6 97.8 Pulse 69 64 73 83 Resp 20 20 B/P 168/75 154/74 175/83 145/70 Pulse Ox 94 96 O2 Delivery Nasal Cannula Nasal Cannula O2 Flow Rate 2.0 2.0 08/02/16 13:03 Pulse 75 B/P 145/70 Intake and Output 08/01/16 08/01/16 08/02/16 15:00 23:00 07:00 Intake Total 960 ml Output Total 1700 ml 675 ml Balance -1700 ml [address], 07/28, negative SHERRY ALCANTARA MD Aug 02, 2016 14:05
[2016-08-02] MEDS: CEFTRIAXONE SODIUM 1 GM in IV NORMAL SALINE 50ML 50 ML IV SCH (14:24)
[2016-08-02 14:28] VITALS: BP 128/62
--- NOTE | 2016-08-02 15:14 | PDOC ---
Provider Note Provider Note AF VSS awake and alert left groin incision intact left AKA dressing dry A/P POD#2 left leg attempted revascularization surgery and subsequent AKA - dressing change in 1-2 days BRANDEN ARANDA MD Aug 02, 2016 15:14
--- NOTE | 2016-08-02 15:22 | PDOC ---
PROGRESS NOTES Chief Complaint Chief Complaint s/p LEFt AKA () for Severe PVD Acute metabolic encephalopathy - multifactorial, metabolic, hypoxic Dm1, poor control NSTEMI, med management now vasomotor nephropathy, diabetes with severe chronic atherosclerosis, multilevel. VASCULOPATH NO FAm support liver shock with NSTEMI PLAn: Inc levemir to 30 qhs Change SSI to q6 instead of ACHS COURIER to re eval COnt PT/OT when able SW for dc planning and family issues LAbs chanel fu with pulm, card, neuro, vascular npo, ppn History of Present Illness History of Present Illness Remains non verbal, mittens on Clinemex running COURIER on board POD 3 VS stable LAbs ok' BUt BS high Still no family coming up front Dressing on left stump dry Vitals Vitals Vital Signs Date Time Temp Pulse Resp B/P Pulse Ox O2 Delivery O2 Flow Rate FiO2 08/02/16 14:28 97.6 65 19 128/62 97 Nasal Cannula 2.0 97.6 Physical Exam General: No acute distress, Other (confuse) Heart: Regular rate, Normal S1, Normal S2, No murmurs, Other (2/6 systolic murmur to LLS border) Lungs: Clear Abdomen: Soft, No tenderness Extremities: Other (absent doppler arterial flow left pt artery, foot mottled, cannot passively dorsiflex foot.) Skin: No breakdown, Other (white scaly skin to bilateral feet) Labs LABS Laboratory Tests Test 08/01/16 18:36 08/01/16 20:58 08/01/16 23:45 08/02/16 05:13 Glucose (Fingerstick) 294mg/dL (70-99) 293mg/dL (70-99) 210mg/dL (70-99) 176mg/dL (70-99) Test 08/02/16 11:58 Glucose (Fingerstick) 178mg/dL (70-99) Review of Systems Review of Systems no fever, chills, sob or chest pain Assessment and Plan Assessmemt and Plan Problems Medical Problems: (1) Altered mental status Status: Acute (2) Dehydration Status: Acute (3) NSTEMI (non-ST elevated myocardial infarction) Status: Acute Problems: Comment Review of Relevant I have reviewed the following items chris (where applicable) has been applied. Labs Laboratory Tests Test 07/31/16 15:20 07/31/16 17:45 07/31/16 20:59 08/01/16 06:18 Glucose (Fingerstick) 247mg/dL (70-99) 265mg/dL (70-99) 285mg/dL (70-99) 332mg/dL (70-99) Test 08/01/16 09:45 08/01/16 12:15 08/01/16 18:36 08/01/16 20:58 White Blood Count 20.7x10^3/uL (4.0-11.0) Red Blood Count 3.82x10^6/uL (4.30-5.70) Hemoglobin 10.7g/dL (13.0-17.5) Hematocrit 33.3% (39.0-53.0) Mean Corpuscular Volume 87fL (79-100) Mean Corpuscular Hemoglobin 28pg (25-35) Mean Corpuscular Hemoglobin Concent 32g/dL (31-37) Red Cell Distribution Width 15.2% (11.5-14.5) Platelet Count 176x10^3/uL (140-400) Neutrophils (%) (Auto) 84% (31-73) Lymphocytes (%) (Auto) 4% (24-48) Monocytes (%) (Auto) 11% (0-9) Eosinophils (%) (Auto) 0% (0-3) Basophils (%) (Auto) 1% (0-3) Neutrophils # (Auto) 17.4x10^3uL (1.8-7.7) Lymphocytes # (Auto) 0.9x10^3/uL (1.0-4.8) Monocytes # (Auto) 2.2x10^3/uL (0.0-1.1) Eosinophils # (Auto) 0.0x10^3/uL (0.0-0.7) Basophils # (Auto) 0.2x10^3/uL (0.0-0.2) Sodium Level 144mmol/L (136-145) Potassium Level 4.5mmol/L (3.5-5.1) Chloride Level 106mmol/L (98-107) Carbon Dioxide Level 29mmol/L (21-32) Anion Gap 9 (6-14) Blood Urea Nitrogen 36mg/dL (8-26) Creatinine 1.0mg/dL (0.7-1.3) Estimated GFR (Cockcroft-Gault) 74.5 Glucose Level 358mg/dL (70-99) Calcium Level 9.0mg/dL (8.5-10.1) Glucose (Fingerstick) 319mg/dL (70-99) 294mg/dL (70-99) 293mg/dL (70-99) Test 08/01/16 23:45 08/02/16 05:13 08/02/16 11:58 Glucose (Fingerstick) 210mg/dL (70-99) 176mg/dL (70-99) 178mg/dL (70-99) Laboratory Tests Test 08/01/16 18:36 08/01/16 20:58 08/01/16 23:45 08/02/16 05:13 Glucose (Fingerstick) 294mg/dL (70-99) 293mg/dL (70-99) 210mg/dL (70-99) 176mg/dL (70-99) Test 08/02/16 11:58 Glucose (Fingerstick) 178mg/dL (70-99) Microbiology 07/28/16 Blood Culture - Preliminary, Resulted NO GROWTH AFTER 4 DAYS Medications Current Medications Naloxone HCl 0.4 mg 0.4 mg 1X ONCE IV Last administered on 07/28/16 21:30; Start 07/28/16 at 21:30; Stop 07/28/16 at 21:31; Status DC Sodium Chloride 1,000 ml @ 1,000 mls/hr 1X ONCE IV Last administered on 21:30; Start 07/28/16 at 21:30; Stop 07/28/16 at 22:29; Status DC Ceftriaxone Sodium 1 gm/ Sodium Chloride 50 ml @ 100 mls/hr Q24H IV Last administered on 07/30/16 21:39; Start 07/29/16 at 21:00; Stop 07/31/16 at 17:33; Status DC Ceftriaxone Sodium 50 ml @ 100 mls/hr 1X ONCE IV Last administered on 21:35; Start 07/28/16 at 22:00; Stop 07/28/16 at 22:29; Status DC Heparin Sodium/ Dextrose 500 ml @ 0 mls/hr CONT PRN IV SEE I/O RECORD Last administered on 07/29/16 21:46; Start 07/28/16 at 22:00; Stop 07/30/16 at 07:59; Status DC Heparin Sodium (Porcine) 2,200 unit PRN Q6HRS PRN IV FOR UFH LEVEL LESS THAN 0.2 Last administered on 07/28/16 23:14; Start 07/28/16 at 22:00; Stop 07/30/16 at 08:00; Status DC Ondansetron HCl 4 mg 4 mg PRN Q8HRS PRN IV NAUSEA/VOMITING; Start 07/28/16 at 22 :15; Stop 07/29/16 at 22:14; Status DC Sodium Chloride 1,000 ml @ 125 mls/hr Q8H IV Last administered on 07/29/16 08: 16; Start 07/28/16 at 22:01; Stop 07/29/16 at 13:04; Status DC Metronidazole (FLAGYL 500Mmg PREMIX) 100 ml @ 100 mls/hr Q12HR IV Last administered on 08/02/16 09:50; Start 07/28/16 at 22:30 Hydralazine HCl (Apresoline) 10 mg PRN Q4HRS PRN IVP ELEVATED BP, SEE COMMENTS ; Start 07/29/16 at 03:00 Insulin Aspart (Novolog) 0-9 UNITS TIDWMEALS SQ Last administered on 07/31/16 17:51; Start 07/29/16 at 08:00; Stop 08/01/16 at 08:36; Status DC Dextrose 12.5 gm PRN Q15MIN PRN IV SEE COMMENTS; Start 07/29/16 at 03:00 Insulin Aspart (Novolog) 8 units 1X ONCE SQ Last administered on 07/29/16 08: 20; Start 07/29/16 at 08:30; Stop 07/29/16 at 08:31; Status DC Morphine Sulfate 2 mg PRN Q2HR PRN IV PAIN Last administered on 08/01/16 15:40 ; Start 07/29/16 at 09:00 Aspirin (Aspirin) 300 mg 1X ONCE MD Last administered on 07/29/16 13:17; Start 07/29/16 at 10:30; Stop 07/29/16 at 10:31; Status DC Heparin Sodium (Porcine) 1,800 unit PRN Q6HRS PRN IV FOR UFH LEVEL LESS THAN 0.2 Last administered on 07/29/16 10:35; Start 07/29/16 at 10:15; Stop 07/30/16 at 08:00; Status DC Metoprolol Tartrate (Lopressor) 5 mg Q6HRS IVP Last administered on 08/02/16 13:02; Start 07/29/16 at 13:00 Aspirin 150 mg 150 mg DAILY MD Last administered on 08/02/16 09:55; Start 07/30 at 09:00 Sodium Chloride 1,000 ml @ 60 mls/hr [id number] IV Last administered on 07/29/16 13:25; Start 07/29/16 at 13:30; Stop 07/29/16 at 13:31; Status DC Heparin Sodium (Porcine) 5000 unit/Sodium Chloride 505 ml @ 505 mls/hr 1X PERIOP ONCE IRR Last administered on 07/29/16 15:26; Start 07/29/16 at 14:00; Stop 07/29/16 at 14:59; Status DC Cefazolin Sodium/ Sodium Chloride (Ancef/Iv Sodium Chloride 0.9% 500ml Bag) 500 ml @ 500 mls/hr 1X PERIOP ONCE IRR Last administered on 07/29/16 15:26; Start 07/29/16 at 14:00; Stop 07/29/16 at 14:59; Status DC Gelatin (Gelfoam Size 12-7mm) 1 each STK-MED ONCE .ROUTE ; Start 07/29/16 at 13: 54; Stop 07/29/16 at 13:55; Status DC Cellulose 1 each STK-MED ONCE .ROUTE ; Start 07/29/16 at 13:54; Stop 07/29/16 at 13:55; Status DC Iohexol (Omnipaque 300 Mg/ml) 50 ml STK-MED ONCE .ROUTE ; Start 07/29/16 at 13:54 ; Stop 07/29/16 at 13:55; Status DC Gelatin (Gelfoam Size 100) 1 each STK-MED ONCE .ROUTE ; Start 07/29/16 at 13:54 ; Stop 07/29/16 at 13:55; Status DC Papaverine HCl 60 mg STK-MED ONCE .ROUTE ; Start 07/29/16 at 13:54; Stop 07/29/16 at 13:55; Status DC Thrombin 20,000 unit STK-MED ONCE TP ; Start 07/29/16 at 13:54; Stop 07/29/16 at 13:55; Status DC Midazolam HCl (Versed) 2 mg STK-MED ONCE .ROUTE ; Start 07/29/16 at 14:14; Stop 07/29/16 at 14:15; Status DC Fentanyl Citrate (Fentanyl 5ml Vial) 250 mcg STK-MED ONCE .ROUTE ; Start at 14:14; Stop 07/29/16 at 14:15; Status DC Rocuronium [place] 50 mg 50 mg STK-MED ONCE .ROUTE ; Start 07/29/16 at 14:14; Stop 07/29/16 at 14:15; Status DC Propofol (Diprivan) 20 ml @ As Directed STK-MED ONCE IV ; Start 07/29/16 at 14:14 ; Stop 07/29/16 at 14:15; Status DC Dexamethasone Sodium Phosphate (Decadron) 20 mg STK-MED ONCE .ROUTE ; Start 07/29 at 14:14; Stop 07/29/16 at 14:15; Status DC Ondansetron HCl (Zofran) 4 mg STK-MED ONCE .ROUTE ; Start 07/29/16 at 14:14; Stop 07/29/16 at 14:15; Status DC Lidocaine HCl 100 mg STK-MED ONCE .ROUTE ; Start 07/29/16 at 14:15; Stop 07/29/16 at 14:16; Status DC Succinylcholine Chloride (Anectine) 200 mg STK-MED ONCE .ROUTE ; Start 07/29/16 at 14:43; Stop 07/29/16 at 14:44; Status DC Phenylephrine HCl 1 mg STK-MED ONCE IV ; Start 07/29/16 at 15:01; Stop 07/29/16 at 15:02; Status DC Ephedrine Sulfate 50 mg 50 mg STK-MED ONCE .ROUTE ; Start 07/29/16 at 15:28; Stop 07/29/16 at 15:29; Status DC Insulin Human Regular/Sodium Chloride (Novolin R Vial/ Iv Normal Saline 150ml) 151.5 ml @ 7.29 mls/hr 1X ONCE IV ; Start 07/29/16 at 16:45; Stop 07/30/16 at 12 :52; Status DC Info (Anti-Coagulation Monitoring By Pharmacy) 1 each PRN DAILY PRN MC SEE COMMENTS Last administered on 07/29/16t 17:00; Start 07/29/16 at 17:00; Stop at 12:51; Status DC Heparin Sodium (Porcine) 10,000 unit STK-MED ONCE .ROUTE ; Start 07/29/16 at 17: 02; Stop 07/29/16 at 17:03; Status DC Neostigmine Methylsulfate 5 mg STK-MED ONCE .ROUTE ; Start 07/29/16 at 20:52; Stop 07/29/16 at 20:53; Status DC Glycopyrrolate (Robinul) 1 mg STK-MED ONCE .ROUTE ; Start 07/29/16 at 20:52; Stop 07/29/16 at 20:53; Status DC Fentanyl Citrate (Fentanyl 2ml Vial) 50 mcg PRN Q5MIN PRN IV Acute Pain; Start 07/29/16 at 21:15; Stop 07/30/16 at 21:14; Status DC Morphine Sulfate 4 mg PRN Q10MIN PRN IV Moderate Pain; Start 07/29/16 at 21:15; Stop 07/30/16 at 21:14; Status DC Hydromorphone HCl (Dilaudid) 0.4 mg PRN Q10MIN PRN IV Moderate to severe pain; Start 07/29/16 at 21:15; Stop 07/30/16 at 21:14; Status DC Meperidine HCl (Demerol) 12.5 mg PRN Q5MIN PRN IV SHIVERING; Start 07/29/16 at 21:15; Stop 07/30/16 at 00:00; Status DC Prochlorperazine Edisylate (Compazine) 5 mg PRN Q6HRS PRN IV Nausea/Vomiting, 1st Choice; Start 07/29/16 at 21:15; Stop 07/30/16 at 21:14; Status DC Diphenhydramine HCl 12.5 mg 12.5 mg PRN Q2HR PRN IV ITCHING; Start 07/29/16 at 21:15; Stop 07/30/16 at 21:14; Status DC Sodium Chloride (Iv Sodium Chloride 0.45%) 1,000 ml @ 100 mls/hr Q10H IV Last administered on 07/29/16 21:59; Start 07/29/16 at 22:00; Stop 07/30/16 at 09:41; Status DC Cefazolin Sodium/ Dextrose (Ancef 2gm Premix) 2 gm STK-MED ONCE IV ; Start at 17:35; Stop 07/30/16 at 08:53; Status DC Pantoprazole Sodium 40 mg 40 mg [id number] IVP Last administered on 08/01/16 17:18 ; Start 07/30/16 at 18:00; Stop 08/01/16 at 20:26; Status DC Sodium Chloride 1,000 ml @ 60 mls/hr [id number] IV Last administered on 07/30/16 09:47; Start 07/30/16 at 09:45; Stop 07/30/16 at 12:47; Status DC Cefazolin Sodium/ Sodium Chloride (Ancef/Iv Sodium Chloride 0.9% 500ml Bag) 500 ml @ 500 mls/hr 1X PERIOP ONCE IRR Last administered on 07/31/16 13:47; Start 07/31/16 at 06:00; Stop 07/31/16 at 06:59; Status DC Insulin Detemir (Levemir) 15 units [id number] SQ Last administered on 07/30/16 12: 57; Start 07/30/16 at 13:00; Stop 08/01/16 at 08:36; Status DC Insulin Aspart 12 units 12 units 1X ONCE SQ ; Start 07/30/16 at 12:45; Stop 07/30 at 12:47; Status DC Amino Acids/ Electrolytes/ Dextrose (Clinimix E 4.25%-5% Solution) 1,000 ml @ 80 mls/hr [id number] IV Last administered on 08/02/16 05:25; Start 07/30/16 at 13: 00 Ondansetron HCl (Zofran) 4 mg PRN Q6HRS PRN IV Nausea; Start 07/31/16 at 07:00; Stop 08/01/16 at 06:59; Status DC Fentanyl Citrate (Fentanyl 2ml Vial) 25 mcg PRN Q5MIN PRN IV MILD PAIN; Start 07/31/16 at 07:00; Stop 08/01/16 at 06:59; Status DC Fentanyl Citrate (Fentanyl 2ml Vial) 50 mcg PRN Q5MIN PRN IV MODERATE PAIN; Start 07/31/16 at 07:00; Stop 08/01/16 at 06:59; Status DC Morphine Sulfate 1 mg 1 mg PRN Q10MIN PRN IV SEVERE PAIN; Start 07/31/16 at 07: 00; Stop 08/01/16 at 06:59; Status DC Lactated Ringer's (Iv Lactated Ringers) 1,000 ml @ 30 mls/hr Q24H IV Last administered on 07/31/16 15:53; Start 07/31/16 at 07:00; Stop 07/31/16 at 18:59; Status DC Lidocaine HCl 2 ml 1X PRN PRN ID IV START; Start 07/31/16 at 07:00; Stop at 06:59; Status DC Hydromorphone HCl (Dilaudid) 0.5 mg PRN Q10MIN PRN IV SEVERE PAIN, Second choice; Start 07/31/16 at 07:00; Stop 08/01/16 at 06:59; Status DC Prochlorperazine Edisylate (Compazine) 5 mg PACU PRN PRN IV NAUSEA; Start at 07:00; Stop 08/01/16 at 06:59; Status DC Insulin Detemir (Levemir) 10 units QHS SQ Last administered on 07/31/16 21:49; Start 07/31/16 at 21:00; Stop 08/01/16 at 08:36; Status DC Enalaprilat (Vasotec) 1.25 mg Q6HRS IV ; Start 07/31/16 at 12:00; Stop 07/31/16 at 12:00; Status DC Enalaprilat (Vasotec) 0.625 mg Q6HRS IV Last administered on 08/02/16 13:03; Start 07/31/16 at 12:00 Fentanyl Citrate (Fentanyl 2ml Vial) 100 mcg STK-MED ONCE .ROUTE ; Start at 12:49; Stop 07/31/16 at 12:50; Status DC Rocuronium [place] (Zemuron) 50 mg STK-MED ONCE .ROUTE ; Start 07/31/16 at 12:49 ; Stop 07/31/16 at 12:50; Status DC Lidocaine HCl 100 mg 100 mg STK-MED ONCE .ROUTE ; Start 07/31/16 at 13:17; Stop 07/31/16 at 13:18; Status DC Propofol (Diprivan) 20 ml @ As Directed STK-MED ONCE IV ; Start 07/31/16 at 13:17 ; Stop 07/31/16 at 13:18; Status DC Succinylcholine Chloride (Anectine) 200 mg STK-MED ONCE .ROUTE ; Start 07/31/16 at 13:30; Stop 07/31/16 at 13:31; Status DC Dexamethasone Sodium Phosphate (Decadron) 20 mg STK-MED ONCE .ROUTE ; Start 07/31 at 13:42; Stop 07/31/16 at 13:43; Status DC Ondansetron HCl (Zofran) 4 mg STK-MED ONCE .ROUTE ; Start 07/31/16 at 13:42; Stop 07/31/16 at 13:43; Status DC Phenylephrine HCl 1 mg STK-MED ONCE IV ; Start 07/31/16 at 13:47; Stop 07/31/16 at 13:48; Status DC Fentanyl Citrate (Fentanyl 2ml Vial) 100 mcg STK-MED ONCE .ROUTE ; Start at 14:26; Stop 07/31/16 at 14:27; Status DC Sevoflurane (Ultane) 60 ml STK-MED ONCE IH ; Start 07/31/16 at 15:13; Stop at 15:14; Status DC Insulin Aspart (Novolog Vial) 3 unit 1X ONCE SQ ; Start 07/31/16 at 15:45; Stop 07/31/16 at 15:45; Status DC Insulin Aspart (Novolog) 3 units 1X ONCE SQ ; Start 07/31/16 at 15:45; Stop 07/31 at 15:46; Status Cancel Insulin Aspart (Novolog Vial) 100 unit STK-MED ONCE SQ ; Start 07/31/16 at 15:41 ; Stop 07/31/16 at 15:42; Status DC Insulin Aspart (Novolog Vial) 3 unit 1X ONCE SQ ; Start 07/31/16 at 16:00; Stop 07/31/16 at 16:01; Status Cancel Insulin Aspart 3 unit 3 unit 1X ONCE SQ Last administered on 07/31/16 15:57; Start 07/31/16 at 16:00; Stop 07/31/16 at 16:01; Status DC Ceftriaxone Sodium/Sodium Chloride (Rocephin/Iv Sodium Chloride 0.9% 50ml) 50 ml @ 100 mls/hr Q24H IV Last administered on 08/02/16 14:24; Start 08/01/16 at 14:00 Insulin Aspart (Novolog) 0-9 UNITS Q6HRS SQ Last administered on 08/02/16 05: 27; Start 08/01/16 at 12:00 Insulin Detemir (Levemir) 30 units QHS SQ Last administered on 08/01/16 21:06 ; Start 08/01/16 at 21:00 Pantoprazole Sodium (Protonix Vial) 40 mg BID IVP Last administered on 09:55; Start 08/01/16 at 21:00 Active Scripts Active Reported Hydrocodone-Apap 5-325 (Hydrocodone Bit/Acetaminophen) 1 Each Tablet 1 Tab PO Q4HRS PRN Vitals/I & O Vital Sign - Last 24 Hours 08/01/16 08/01/16 08/01/16 08/01/16 15:40 16:10 19:34 19:43 Temp 98.5 98.5 Pulse 86 86 Resp 18 18 20 B/P 158/73 158/73 Pulse Ox 95 95 95 O2 Delivery Nasal Cannula Nasal Cannula Nasal Cannula O2 Flow Rate 1.5 1.5 2.0 08/01/16 08/01/16 08/01/16 08/02/16 19:44 20:13 23:27 00:03 Temp 99.3 99.3 Pulse 86 63 63 Resp 16 B/P 158/73 136/48 136/48 Pulse Ox 95 O2 Delivery Nasal Cannula Nasal Cannula O2 Flow Rate 2.0 2.0 08/02/16 08/02/16 08/02/16 08/02/16 00:04 03:24 05:24 05:25 Temp 97.9 97.9 Pulse 63 74 69 69 Resp 22 B/P 136/48 140/77 168/75 168/75 Pulse Ox 94 O2 Delivery Nasal Cannula O2 Flow Rate 2.0 08/02/16 08/02/16 08/02/16 08/02/16 07:55 10:02 13:02 13:03 Temp 97.6 97.8 97.6 97.8 Pulse 64 73 83 75 Resp 20 20 B/P 154/74 175/83 145/70 145/70 Pulse Ox 94 96 O2 Delivery Nasal Cannula Nasal Cannula O2 Flow Rate 2.0 2.0 08/02/16 14:28 Temp 97.6 97.6 Pulse 65 Resp 19 B/P 128/62 Pulse Ox 97 O2 Delivery Nasal Cannula O2 Flow Rate 2.0 Intake and Output 08/01/16 08/01/16 08/02/16 15:00 23:00 07:00 Intake Total 960 ml Output Total 1700 ml 675 ml Balance -1700 ml 285 ml Nutrition Consultation Dietary Evaluation: Recommendations by RD: Increase Calorie Intake Comments: Rec. continue the Clinimix at 80 ml/hr until intake improves Consider dobhoff TF's to better meet nutrition needs: Diabetisource AC, goal rate 60 ml/hr start at 20 ml/hr, increase by 20 ml/hr q8h to goal rate flushes 200 cc q6h if no IVF's Expected Outcomes/Goals: meet 75% estimated nutrition needs Malnutrition Findings: Reduced T[employer] Tester Strength: N/A Weight Status: Overweight Fluid Accumulation (N/A): N/A EVE PERLA MD Aug 02, 2016 15:22
[2016-08-02] MEDS: MORPHINE SULFATE 2 MG/ML DISP.SYRIN. IV PRN (19:09)
[2016-08-02 19:35] VITALS: BP 142/77
[2016-08-02] MEDS: INSULIN DETEMIR 300 UNITS/3 ML INSULN.PEN. SQ SCH (21:18)
[2016-08-02 23:15] VITALS: BP 125/65
[2016-08-03] MEDS: MORPHINE SULFATE 2 MG/ML DISP.SYRIN. IV PRN ×4 (03:35→23:23)
[2016-08-03 03:47] VITALS: BP 153/81
[2016-08-03] MEDS: AA 2.75%/CALCIUM/LYTES/D5W 1,000 ML IV SCH ×2 (05:09→16:11)
[2016-08-03] MEDS: ENALAPRILAT 1.25 MG/ML VIAL. IV SCH ×4 (05:10→23:21)
[2016-08-03] MEDS: INSULIN ASPART 300 UNITS/3 ML INSULN.PEN SQ SCH ×4 (05:10→23:43)
[2016-08-03] MEDS: METOPROLOL TARTRATE 5 MG/5 ML VIAL. IVP SCH ×4 (05:11→23:22)
[2016-08-03 07:52] VITALS: BP 155/69
--- NOTE | 2016-08-03 09:02 | PDOC ---
Provider Note Provider Note left AKA dressing removed - the left groin incision has no erythema/drainage, a few nora have come out therefore steri strips were placed, AKA incision intact with no hematoma/erythema/drainage A/P s/p left AKA - dry dressing daily BRANDEN ARANDA MD Aug 03, 2016 09:02
[2016-08-03 09:21] LABS: BASO % 0 % (0-3); EOS % 1 % (0-3); HEMATOCRIT 33.5 % (39.0-53.0); HEMOGLOBIN 10.5 g/dL (13.0-17.5); LYMPH # 1.8 x10^3/uL (1.0-4.8); LYMPH % 9 % (24-48); MEAN CORPUSCULAR HEMOGLOBIN 28 pg (25-35); MEAN CORPUSCULAR HGB CONC 32 g/dL (31-37); MEAN CORPUSCULAR VOLUME 89 fL (79-100); MONO % 13 % (0-9); NEUT % 77 % (31-73); PLATELET COUNT 199 x10^3/uL (140-400); RED BLOOD COUNT 3.76 x10^6/uL (4.30-5.70); RED CELL DISTRIBUTION WIDTH 15.2 % (11.5-14.5)
[2016-08-03] MEDS: PANTOPRAZOLE IV PUSH 40 MG VIAL. IVP SCH ×2 (09:29→21:20)
[2016-08-03] MEDS: ASPIRIN 300 MG SUPP.RECT PR SCH (09:30)
[2016-08-03] MEDS: METRONIDAZOLE 500mg PREMIX 100 ML IV SCH ×2 (09:30→21:20)
[2016-08-03 09:32] LABS: CALCIUM 8.7 mg/dL (8.5-10.1); CREATININE 0.9 mg/dL (0.7-1.3); GFR 84.2; POTASSIUM 3.8 mmol/L (3.5-5.1)
[2016-08-03 11:25] VITALS: BP 141/70
[2016-08-03] MEDS: CEFTRIAXONE SODIUM 1 GM in IV NORMAL SALINE 50ML 50 ML IV SCH (14:36)
[2016-08-03 14:41] VITALS: BP 123/59
--- NOTE | 2016-08-03 14:50 | PDOC ---
PROGRESS NOTES Chief Complaint Chief Complaint s/p LEFt AKA () for Severe PVD Acute metabolic encephalopathy - multifactorial, metabolic, hypoxic Dm1, poor control NSTEMI, med management now vasomotor nephropathy, diabetes with severe chronic atherosclerosis, multilevel. VASCULOPATH NO FAm support liver shock with NSTEMI PLAn: Inc levemir to 30 qhs Change SSI to q6 instead of ACHS WIRE COATER to re eval COnt PT/OT when able SW for dc planning and family issues LAbs chanel fu with pulm, card, neuro, vascular npo, ppn, fu with swallow eval pt has no family,has neighbor as freind to decide for him, fu with SW for dc plan History of Present Illness History of Present Illness Remains non verbal, mittens on Clinemex running WIRE COATER on board POD 3 VS stable LAbs ok' BUt BS high Still no family coming up front Dressing on left stump dry Vitals Vitals Vital Signs Date Time Temp Pulse Resp B/P Pulse Ox O2 Delivery O2 Flow Rate FiO2 08/03/16 14:41 97.4 65 20 123/59 97 Nasal Cannula 2.0 97.4 Physical Exam General: No acute distress, Other (confuse) Heart: Regular rate, Normal S1, Normal S2, No murmurs, Other (2/6 systolic murmur to LLS border) Lungs: Clear Abdomen: Soft, No tenderness Extremities: Other (absent doppler arterial flow left pt artery, foot mottled, cannot passively dorsiflex foot.) Skin: No breakdown, Other (white scaly skin to bilateral feet) Labs LABS Laboratory Tests Test 08/02/16 16:31 08/02/16 21:09 08/02/16 23:19 08/03/16 05:03 Glucose (Fingerstick) 235mg/dL (70-99) 253mg/dL (70-99) 244mg/dL (70-99) 198mg/dL (70-99) Test 08/03/16 08:00 08/03/16 11:32 White Blood Count 19.0x10^3/uL (4.0-11.0) Red Blood Count 3.76x10^6/uL (4.30-5.70) Hemoglobin 10.5g/dL (13.0-17.5) Hematocrit 33.5% (39.0-53.0) Mean Corpuscular Volume 89fL (79-100) Mean Corpuscular Hemoglobin 28pg (25-35) Mean Corpuscular Hemoglobin Concent 32g/dL (31-37) Red Cell Distribution Width 15.2% (11.5-14.5) Platelet Count 199x10^3/uL (140-400) Neutrophils (%) (Auto) 77% (31-73) Lymphocytes (%) (Auto) 9% (24-48) Monocytes (%) (Auto) 13% (0-9) Eosinophils (%) (Auto) 1% (0-3) Basophils (%) (Auto) 0% (0-3) Neutrophils # (Auto) 14.6x10^3uL (1.8-7.7) Lymphocytes # (Auto) 1.8x10^3/uL (1.0-4.8) Monocytes # (Auto) 2.5x10^3/uL (0.0-1.1) Eosinophils # (Auto) 0.1x10^3/uL (0.0-0.7) Basophils # (Auto) 0.0x10^3/uL (0.0-0.2) Sodium Level 145mmol/L (136-145) Potassium Level 3.8mmol/L (3.5-5.1) Chloride Level 108mmol/L (98-107) Carbon Dioxide Level 32mmol/L (21-32) Anion Gap 5 (6-14) Blood Urea Nitrogen 30mg/dL (8-26) Creatinine 0.9mg/dL (0.7-1.3) Estimated GFR (Cockcroft-Gault) 84.2 Glucose Level 164mg/dL (70-99) Calcium Level 8.7mg/dL (8.5-10.1) Glucose (Fingerstick) 135mg/dL (70-99) Review of Systems Review of Systems no fever, chills, sob or chest pain Assessment and Plan Assessmemt and Plan Problems Medical Problems: (1) Altered mental status Status: Acute (2) Dehydration Status: Acute (3) NSTEMI (non-ST elevated myocardial infarction) Status: Acute Problems: Comment Review of Relevant I have reviewed the following items chris (where applicable) has been applied. Labs Laboratory Tests Test 08/01/16 18:36 08/01/16 20:58 08/01/16 23:45 08/02/16 05:13 Glucose (Fingerstick) 294mg/dL (70-99) 293mg/dL (70-99) 210mg/dL (70-99) 176mg/dL (70-99) Test 08/02/16 11:58 08/02/16 16:31 08/02/16 21:09 08/02/16 23:19 Glucose (Fingerstick) 178mg/dL (70-99) 235mg/dL (70-99) 253mg/dL (70-99) 244mg/dL (70-99) Test 08/03/16 05:03 08/03/16 08:00 08/03/16 11:32 Glucose (Fingerstick) 198mg/dL (70-99) 135mg/dL (70-99) White Blood Count 19.0x10^3/uL (4.0-11.0) Red Blood Count 3.76x10^6/uL (4.30-5.70) Hemoglobin 10.5g/dL (13.0-17.5) Hematocrit 33.5% (39.0-53.0) Mean Corpuscular Volume 89fL (79-100) Mean Corpuscular Hemoglobin 28pg (25-35) Mean Corpuscular Hemoglobin Concent 32g/dL (31-37) Red Cell Distribution Width 15.2% (11.5-14.5) Platelet Count 199x10^3/uL (140-400) Neutrophils (%) (Auto) 77% (31-73) Lymphocytes (%) (Auto) 9% (24-48) Monocytes (%) (Auto) 13% (0-9) Eosinophils (%) (Auto) 1% (0-3) Basophils (%) (Auto) 0% (0-3) Neutrophils # (Auto) 14.6x10^3uL (1.8-7.7) Lymphocytes # (Auto) 1.8x10^3/uL (1.0-4.8) Monocytes # (Auto) 2.5x10^3/uL (0.0-1.1) Eosinophils # (Auto) 0.1x10^3/uL (0.0-0.7) Basophils # (Auto) 0.0x10^3/uL (0.0-0.2) Sodium Level 145mmol/L (136-145) Potassium Level 3.8mmol/L (3.5-5.1) Chloride Level 108mmol/L (98-107) Carbon Dioxide Level 32mmol/L (21-32) Anion Gap 5 (6-14) Blood Urea Nitrogen 30mg/dL (8-26) Creatinine 0.9mg/dL (0.7-1.3) Estimated GFR (Cockcroft-Gault) 84.2 Glucose Level 164mg/dL (70-99) Calcium Level 8.7mg/dL (8.5-10.1) Laboratory Tests Test 08/02/16 16:31 08/02/16 21:09 08/02/16 23:19 08/03/16 05:03 Glucose (Fingerstick) 235mg/dL (70-99) 253mg/dL (70-99) 244mg/dL (70-99) 198mg/dL (70-99) Test 08/03/16 08:00 08/03/16 11:32 White Blood Count 19.0x10^3/uL (4.0-11.0) Red Blood Count 3.76x10^6/uL (4.30-5.70) Hemoglobin 10.5g/dL (13.0-17.5) Hematocrit 33.5% (39.0-53.0) Mean Corpuscular Volume 89fL (79-100) Mean Corpuscular Hemoglobin 28pg (25-35) Mean Corpuscular Hemoglobin Concent 32g/dL (31-37) Red Cell Distribution Width 15.2% (11.5-14.5) Platelet Count 199x10^3/uL (140-400) Neutrophils (%) (Auto) 77% (31-73) Lymphocytes (%) (Auto) 9% (24-48) Monocytes (%) (Auto) 13% (0-9) Eosinophils (%) (Auto) 1% (0-3) Basophils (%) (Auto) 0% (0-3) Neutrophils # (Auto) 14.6x10^3uL (1.8-7.7) Lymphocytes # (Auto) 1.8x10^3/uL (1.0-4.8) Monocytes # (Auto) 2.5x10^3/uL (0.0-1.1) Eosinophils # (Auto) 0.1x10^3/uL (0.0-0.7) Basophils # (Auto) 0.0x10^3/uL (0.0-0.2) Sodium Level 145mmol/L (136-145) Potassium Level 3.8mmol/L (3.5-5.1) Chloride Level 108mmol/L (98-107) Carbon Dioxide Level 32mmol/L (21-32) Anion Gap 5 (6-14) Blood Urea Nitrogen 30mg/dL (8-26) Creatinine 0.9mg/dL (0.7-1.3) Estimated GFR (Cockcroft-Gault) 84.2 Glucose Level 164mg/dL (70-99) Calcium Level 8.7mg/dL (8.5-10.1) Glucose (Fingerstick) 135mg/dL (70-99) Microbiology 07/28/16 Blood Culture - Final, Complete NO GROWTH AFTER 5 DAYS Medications Current Medications Naloxone HCl 0.4 mg 0.4 mg 1X ONCE IV Last administered on 07/28/16 21:30; Start 07/28/16 at 21:30; Stop 07/28/16 at 21:31; Status DC Sodium Chloride 1,000 ml @ 1,000 mls/hr 1X ONCE IV Last administered on 21:30; Start 07/28/16 at 21:30; Stop 07/28/16 at 22:29; Status DC Ceftriaxone Sodium 1 gm/ Sodium Chloride 50 ml @ 100 mls/hr Q24H IV Last administered on 07/30/16 21:39; Start 07/29/16 at 21:00; Stop 07/31/16 at 17:33; Status DC Ceftriaxone Sodium 50 ml @ 100 mls/hr 1X ONCE IV Last administered on 21:35; Start 07/28/16 at 22:00; Stop 07/28/16 at 22:29; Status DC Heparin Sodium/ Dextrose 500 ml @ 0 mls/hr CONT PRN IV SEE I/O RECORD Last administered on 07/29/16 21:46; Start 07/28/16 at 22:00; Stop 07/30/16 at 07:59; Status DC Heparin Sodium (Porcine) 2,200 unit PRN Q6HRS PRN IV FOR UFH LEVEL LESS THAN 0.2 Last administered on 07/28/16 23:14; Start 07/28/16 at 22:00; Stop 07/30/16 at 08:00; Status DC Ondansetron HCl 4 mg 4 mg PRN Q8HRS PRN IV NAUSEA/VOMITING; Start 07/28/16 at 22 :15; Stop 07/29/16 at 22:14; Status DC Sodium Chloride 1,000 ml @ 125 mls/hr Q8H IV Last administered on 07/29/16 08: 16; Start 07/28/16 at 22:01; Stop 07/29/16 at 13:04; Status DC Metronidazole (FLAGYL 500Mmg PREMIX) 100 ml @ 100 mls/hr Q12HR IV Last administered on 08/03/16 09:30; Start 07/28/16 at 22:30 Hydralazine HCl (Apresoline) 10 mg PRN Q4HRS PRN IVP ELEVATED BP, SEE COMMENTS ; Start 07/29/16 at 03:00 Insulin Aspart (Novolog) 0-9 UNITS TIDWMEALS SQ Last administered on 07/31/16 17:51; Start 07/29/16 at 08:00; Stop 08/01/16 at 08:36; Status DC Dextrose 12.5 gm PRN Q15MIN PRN IV SEE COMMENTS; Start 07/29/16 at 03:00 Insulin Aspart (Novolog) 8 units 1X ONCE SQ Last administered on 07/29/16 08: 20; Start 07/29/16 at 08:30; Stop 07/29/16 at 08:31; Status DC Morphine Sulfate 2 mg PRN Q2HR PRN IV PAIN Last administered on 08/03/16 14:37 ; Start 07/29/16 at 09:00 Aspirin (Aspirin) [address] Last administered on 07/29/16 13:17; Start 07/29/16 at 10:30; Stop 07/29/16 at 10:31; Status DC Heparin Sodium (Porcine) 1,800 unit PRN Q6HRS PRN IV FOR UFH LEVEL LESS THAN 0.2 Last administered on 07/29/16 10:35; Start 07/29/16 at 10:15; Stop 07/30/16 at 08:00; Status DC Metoprolol Tartrate (Lopressor) 5 mg Q6HRS IVP Last administered on 08/03/16 12:24; Start 07/29/16 at 13:00 Aspirin 150 mg [address] Last administered on 08/03/16 09:30; Start 07/30 at 09:00 Sodium Chloride 1,000 ml @ 60 mls/hr [id number] IV Last administered on 07/29/16 13:25; Start 07/29/16 at 13:30; Stop 07/29/16 at 13:31; Status DC Heparin Sodium (Porcine) 5000 unit/Sodium Chloride 505 ml @ 505 mls/hr 1X PERIOP ONCE IRR Last administered on 07/29/16 15:26; Start 07/29/16 at 14:00; Stop 07/29/16 at 14:59; Status DC Cefazolin Sodium/ Sodium Chloride (Ancef/Iv Sodium Chloride 0.9% 500ml Bag) 500 ml @ 500 mls/hr 1X PERIOP ONCE IRR Last administered on 07/29/16 15:26; Start 07/29/16 at 14:00; Stop 07/29/16 at 14:59; Status DC Gelatin (Gelfoam Size 12-7mm) 1 each STK-MED ONCE .ROUTE ; Start 07/29/16 at 13: 54; Stop 07/29/16 at 13:55; Status DC Cellulose 1 each STK-MED ONCE .ROUTE ; Start 07/29/16 at 13:54; Stop 07/29/16 at 13:55; Status DC Iohexol (Omnipaque 300 Mg/ml) 50 ml STK-MED ONCE .ROUTE ; Start 07/29/16 at 13:54 ; Stop 07/29/16 at 13:55; Status DC Gelatin (Gelfoam Size 100) 1 each STK-MED ONCE .ROUTE ; Start 07/29/16 at 13:54 ; Stop 07/29/16 at 13:55; Status DC Papaverine HCl 60 mg STK-MED ONCE .ROUTE ; Start 07/29/16 at 13:54; Stop 07/29/16 at 13:55; Status DC Thrombin 20,000 unit STK-MED ONCE TP ; Start 07/29/16 at 13:54; Stop 07/29/16 at 13:55; Status DC Midazolam HCl (Versed) 2 mg STK-MED ONCE .ROUTE ; Start 07/29/16 at 14:14; Stop 07/29/16 at 14:15; Status DC Fentanyl Citrate (Fentanyl 5ml Vial) 250 mcg STK-MED ONCE .ROUTE ; Start at 14:14; Stop 07/29/16 at 14:15; Status DC Rocuronium [place] 50 mg 50 mg STK-MED ONCE .ROUTE ; Start 07/29/16 at 14:14; Stop 07/29/16 at 14:15; Status DC Propofol (Diprivan) 20 ml @ As Directed STK-MED ONCE IV ; Start 07/29/16 at 14:14 ; Stop 07/29/16 at 14:15; Status DC Dexamethasone Sodium Phosphate (Decadron) 20 mg STK-MED ONCE .ROUTE ; Start 07/29 at 14:14; Stop 07/29/16 at 14:15; Status DC Ondansetron HCl (Zofran) 4 mg STK-MED ONCE .ROUTE ; Start 07/29/16 at 14:14; Stop 07/29/16 at 14:15; Status DC Lidocaine HCl 100 mg STK-MED ONCE .ROUTE ; Start 07/29/16 at 14:15; Stop 07/29/16 at 14:16; Status DC Succinylcholine Chloride (Anectine) 200 mg STK-MED ONCE .ROUTE ; Start 07/29/16 at 14:43; Stop 07/29/16 at 14:44; Status DC Phenylephrine HCl 1 mg STK-MED ONCE IV ; Start 07/29/16 at 15:01; Stop 07/29/16 at 15:02; Status DC Ephedrine Sulfate 50 mg 50 mg STK-MED ONCE .ROUTE ; Start 07/29/16 at 15:28; Stop 07/29/16 at 15:29; Status DC Insulin Human Regular/Sodium Chloride (Novolin R Vial/ Iv Normal Saline 150ml) 151.5 ml @ 7.29 mls/hr 1X ONCE IV ; Start 07/29/16 at 16:45; Stop 07/30/16 at 12 :52; Status DC Info (Anti-Coagulation Monitoring By Pharmacy) 1 each PRN DAILY PRN MC SEE COMMENTS Last administered on 07/29/16t 17:00; Start 07/29/16 at 17:00; Stop at 12:51; Status DC Heparin Sodium (Porcine) 10,000 unit STK-MED ONCE .ROUTE ; Start 07/29/16 at 17: 02; Stop 07/29/16 at 17:03; Status DC Neostigmine Methylsulfate 5 mg STK-MED ONCE .ROUTE ; Start 07/29/16 at 20:52; Stop 07/29/16 at 20:53; Status DC Glycopyrrolate (Robinul) 1 mg STK-MED ONCE .ROUTE ; Start 07/29/16 at 20:52; Stop 07/29/16 at 20:53; Status DC Fentanyl Citrate (Fentanyl 2ml Vial) 50 mcg PRN Q5MIN PRN IV Acute Pain; Start 07/29/16 at 21:15; Stop 07/30/16 at 21:14; Status DC Morphine Sulfate 4 mg PRN Q10MIN PRN IV Moderate Pain; Start 07/29/16 at 21:15; Stop 07/30/16 at 21:14; Status DC Hydromorphone HCl (Dilaudid) 0.4 mg PRN Q10MIN PRN IV Moderate to severe pain; Start 07/29/16 at 21:15; Stop 07/30/16 at 21:14; Status DC Meperidine HCl (Demerol) 12.5 mg PRN Q5MIN PRN IV SHIVERING; Start 07/29/16 at 21:15; Stop 07/30/16 at 00:00; Status DC Prochlorperazine Edisylate (Compazine) 5 mg PRN Q6HRS PRN IV Nausea/Vomiting, 1st Choice; Start 07/29/16 at 21:15; Stop 07/30/16 at 21:14; Status DC Diphenhydramine HCl 12.5 mg 12.5 mg PRN Q2HR PRN IV ITCHING; Start 07/29/16 at 21:15; Stop 07/30/16 at 21:14; Status DC Sodium Chloride (Iv Sodium Chloride 0.45%) 1,000 ml @ 100 mls/hr Q10H IV Last administered on 07/29/16 21:59; Start 07/29/16 at 22:00; Stop 07/30/16 at 09:41; Status DC Cefazolin Sodium/ Dextrose (Ancef 2gm Premix) 2 gm STK-MED ONCE IV ; Start at 17:35; Stop 07/30/16 at 08:53; Status DC Pantoprazole Sodium 40 mg 40 mg [id number] IVP Last administered on 08/01/16 17:18 ; Start 07/30/16 at 18:00; Stop 08/01/16 at 20:26; Status DC Sodium Chloride 1,000 ml @ 60 mls/hr [id number] IV Last administered on 07/30/16 09:47; Start 07/30/16 at 09:45; Stop 07/30/16 at 12:47; Status DC Cefazolin Sodium/ Sodium Chloride (Ancef/Iv Sodium Chloride 0.9% 500ml Bag) 500 ml @ 500 mls/hr 1X PERIOP ONCE IRR Last administered on 07/31/16 13:47; Start 07/31/16 at 06:00; Stop 07/31/16 at 06:59; Status DC Insulin Detemir (Levemir) 15 units DAILY10 SQ Last administered on 07/30/16 12: 57; Start 07/30/16 at 13:00; Stop 08/01/16 at 08:36; Status DC Insulin Aspart 12 units 12 units 1X ONCE SQ ; Start 07/30/16 at 12:45; Stop 07/30 at 12:47; Status DC Amino Acids/ Electrolytes/ Dextrose (Clinimix E 4.25%-5% Solution) 1,000 ml @ 80 mls/hr [id number] IV Last administered on 08/02/16 17:50; Start 07/30/16 at 13: 00; Stop 08/03/16 at 03:41; Status DC Ondansetron HCl (Zofran) 4 mg PRN Q6HRS PRN IV Nausea; Start 07/31/16 at 07:00; Stop 08/01/16 at 06:59; Status DC Fentanyl Citrate (Fentanyl 2ml Vial) 25 mcg PRN Q5MIN PRN IV MILD PAIN; Start 07/31/16 at 07:00; Stop 08/01/16 at 06:59; Status DC Fentanyl Citrate (Fentanyl 2ml Vial) 50 mcg PRN Q5MIN PRN IV MODERATE PAIN; Start 07/31/16 at 07:00; Stop 08/01/16 at 06:59; Status DC Morphine Sulfate 1 mg 1 mg PRN Q10MIN PRN IV SEVERE PAIN; Start 07/31/16 at 07: 00; Stop 08/01/16 at 06:59; Status DC Lactated Ringer's (Iv Lactated Ringers) 1,000 ml @ 30 mls/hr Q24H IV Last administered on 07/31/16 15:53; Start 07/31/16 at 07:00; Stop 07/31/16 at 18:59; Status DC Lidocaine HCl 2 ml 1X PRN PRN ID IV START; Start 07/31/16 at 07:00; Stop at 06:59; Status DC Hydromorphone HCl (Dilaudid) 0.5 mg PRN Q10MIN PRN IV SEVERE PAIN, Second choice; Start 07/31/16 at 07:00; Stop 08/01/16 at 06:59; Status DC Prochlorperazine Edisylate (Compazine) 5 mg PACU PRN PRN IV NAUSEA; Start at 07:00; Stop 08/01/16 at 06:59; Status DC Insulin Detemir (Levemir) 10 units QHS SQ Last administered on 07/31/16 21:49; Start 07/31/16 at 21:00; Stop 08/01/16 at 08:36; Status DC Enalaprilat (Vasotec) 1.25 mg Q6HRS IV ; Start 07/31/16 at 12:00; Stop 07/31/16 at 12:00; Status DC Enalaprilat (Vasotec) 0.625 mg Q6HRS IV Last administered on 08/03/16 12:23; Start 07/31/16 at 12:00 Fentanyl Citrate (Fentanyl 2ml Vial) 100 mcg STK-MED ONCE .ROUTE ; Start at 12:49; Stop 07/31/16 at 12:50; Status DC Rocuronium [place] (Zemuron) 50 mg STK-MED ONCE .ROUTE ; Start 07/31/16 at 12:49 ; Stop 07/31/16 at 12:50; Status DC Lidocaine HCl 100 mg 100 mg STK-MED ONCE .ROUTE ; Start 07/31/16 at 13:17; Stop 07/31/16 at 13:18; Status DC Propofol (Diprivan) 20 ml @ As Directed STK-MED ONCE IV ; Start 07/31/16 at 13:17 ; Stop 07/31/16 at 13:18; Status DC Succinylcholine Chloride (Anectine) 200 mg STK-MED ONCE .ROUTE ; Start 07/31/16 at 13:30; Stop 07/31/16 at 13:31; Status DC Dexamethasone Sodium Phosphate (Decadron) 20 mg STK-MED ONCE .ROUTE ; Start 07/31 at 13:42; Stop 07/31/16 at 13:43; Status DC Ondansetron HCl (Zofran) 4 mg STK-MED ONCE .ROUTE ; Start 07/31/16 at 13:42; Stop 07/31/16 at 13:43; Status DC Phenylephrine HCl 1 mg STK-MED ONCE IV ; Start 07/31/16 at 13:47; Stop 07/31/16 at 13:48; Status DC Fentanyl Citrate (Fentanyl 2ml Vial) 100 mcg STK-MED ONCE .ROUTE ; Start at 14:26; Stop 07/31/16 at 14:27; Status DC Sevoflurane (Ultane) 60 ml STK-MED ONCE IH ; Start 07/31/16 at 15:13; Stop at 15:14; Status DC Insulin Aspart (Novolog Vial) 3 unit 1X ONCE SQ ; Start 07/31/16 at 15:45; Stop 07/31/16 at 15:45; Status DC Insulin Aspart (Novolog) 3 units 1X ONCE SQ ; Start 07/31/16 at 15:45; Stop 07/31 at 15:46; Status Cancel Insulin Aspart (Novolog Vial) 100 unit STK-MED ONCE SQ ; Start 07/31/16 at 15:41 ; Stop 07/31/16 at 15:42; Status DC Insulin Aspart (Novolog Vial) 3 unit 1X ONCE SQ ; Start 07/31/16 at 16:00; Stop 07/31/16 at 16:01; Status Cancel Insulin Aspart 3 unit 3 unit 1X ONCE SQ Last administered on 07/31/16t 15:57; Start 07/31/16 at 16:00; Stop 07/31/16 at 16:01; Status DC Ceftriaxone Sodium/Sodium Chloride (Rocephin/Iv Sodium Chloride 0.9% 50ml) 50 ml @ 100 mls/hr Q24H IV Last administered on 08/03/16 14:36; Start 08/01/16 at 14:00 Insulin Aspart (Novolog) 0-9 UNITS Q6HRS SQ Last administered on 08/03/16 05: 10; Start 08/01/16 at 12:00 Insulin Detemir (Levemir) 30 units QHS SQ Last administered on 08/02/16 21:18 ; Start 08/01/16 at 21:00 Pantoprazole Sodium 40 mg 40 mg BID IVP Last administered on 08/03/16 09:29; Start 08/01/16 at 21:00 Amino Acids/ Electrolytes (Clinimix E 2.75%-5% Solution) 1,000 ml @ 80 mls/hr [id number] IV Last administered on 08/03/16 05:09; Start 08/03/16 at 03:41 Active Scripts Active Reported Hydrocodone-Apap 5-325 (Hydrocodone Bit/Acetaminophen) 1 Each Tablet 1 Tab PO Q4HRS PRN Vitals/I & O Vital Sign - Last 24 Hours 08/02/16 08/02/16 08/02/16 08/02/16 17:52 17:54 19:09 19:35 Temp 98.5 98.5 Pulse 78 Resp 14 B/P 160/70 160/70 142/77 Pulse Ox 95 O2 Delivery Nasal Cannula Nasal Cannula O2 Flow Rate 2.0 2.0 08/02/16 08/02/16 08/02/16 08/02/16 20:04 23:15 23:23 23:23 Temp 98.3 98.3 Pulse 69 71 71 Resp 20 B/P 125/65 125/66 125/65 Pulse Ox 95 O2 Delivery Nasal Cannula Nasal Cannula O2 Flow Rate 2.0 2.0 08/03/16 08/03/16 08/03/16 08/03/16 03:35 03:47 04:05 05:10 Temp 98.1 98.1 Pulse 76 77 Resp 18 22 18 B/P 153/81 145/78 Pulse Ox 96 96 O2 Delivery Nasal Cannula Nasal Cannula O2 Flow Rate 2.0 2.0 08/03/16 08/03/16 08/03/16 08/03/16 05:11 07:52 08:00 09:29 Temp 97.2 97.2 Pulse 77 72 Resp 18 B/P 145/78 155/69 Pulse Ox 96 O2 Delivery Nasal Cannula Nasal Cannula Nasal Cannula O2 Flow Rate 2.0 2.0 2.0 08/03/16 08/03/16 08/03/16 08/03/16 09:59 11:25 12:23 12:24 Temp 97.8 97.8 Pulse 76 Resp 18 B/P 141/70 141/70 141/70 Pulse Ox 97 O2 Delivery Nasal Cannula Nasal Cannula O2 Flow Rate 2.0 2.0 08/03/16 08/03/16 14:37 14:41 Temp 97.4 97.4 Pulse 65 Resp 20 B/P 123/59 Pulse Ox 97 O2 Delivery Nasal Cannula Nasal Cannula O2 Flow Rate 2.0 2.0 Intake and Output 08/02/16 08/02/16 08/03/16 15:00 23:00 07:00 Intake Total 960 ml 800 ml Output Total 250 ml 700 ml 350 ml Balance -250 ml 260 ml 450 ml Nutrition Consultation Dietary Evaluation: Recommendations by RD: Increase Calorie Intake Comments: Rec. 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
[2016-08-03] MEDS: AA 2.75%/CALCIUM/LYTES/D5W 2,000 ML IV SCH (18:07)
[2016-08-03 19:10] VITALS: BP 109/57
[2016-08-03] MEDS: INSULIN DETEMIR 300 UNITS/3 ML INSULN.PEN. SQ SCH (21:22)
[2016-08-03 23:31] VITALS: BP 151/54
[2016-08-04 03:41] VITALS: BP 151/54
[2016-08-04 05:28] LABS: BASO % 0 % (0-3); EOS % 1 % (0-3); HEMATOCRIT 32.8 % (39.0-53.0); HEMOGLOBIN 10.2 g/dL (13.0-17.5); LYMPH # 1.8 x10^3/uL (1.0-4.8); LYMPH % 10 % (24-48); MEAN CORPUSCULAR HEMOGLOBIN 28 pg (25-35); MEAN CORPUSCULAR HGB CONC 31 g/dL (31-37); MEAN CORPUSCULAR VOLUME 89 fL (79-100); MONO % 13 % (0-9); NEUT % 76 % (31-73); PLATELET COUNT 232 x10^3/uL (140-400); RED BLOOD COUNT 3.68 x10^6/uL (4.30-5.70); RED CELL DISTRIBUTION WIDTH 15.3 % (11.5-14.5); WHITE BLOOD COUNT 18.3 x10^3/uL (4.0-11.0)
[2016-08-04] MEDS: METOPROLOL TARTRATE 5 MG/5 ML VIAL. IVP SCH ×2 (05:34→12:00)
[2016-08-04] MEDS: INSULIN ASPART 300 UNITS/3 ML INSULN.PEN SQ SCH ×4 (05:34→17:39)
[2016-08-04] MEDS: ENALAPRILAT 1.25 MG/ML VIAL. IV SCH ×2 (05:35→12:00)
[2016-08-04 05:47] LABS: CALCIUM 8.6 mg/dL (8.5-10.1); CREATININE 0.9 mg/dL (0.7-1.3); GFR 84.2; POTASSIUM 3.9 mmol/L (3.5-5.1)
[2016-08-04 07:00] VITALS: BP 135/55
[2016-08-04] MEDS: ASPIRIN 300 MG SUPP.RECT PR SCH (09:03)
[2016-08-04] MEDS: PANTOPRAZOLE IV PUSH 40 MG VIAL. IVP SCH ×2 (09:04→21:06)
[2016-08-04] MEDS: METRONIDAZOLE 500mg PREMIX 100 ML IV SCH ×2 (09:06→21:05)
--- NOTE | 2016-08-04 10:07 | PDOC ---
PROGRESS NOTES Assessment Problems Medical Problems: (1) Altered mental status Status: Acute (2) Dehydration Status: Acute (3) NSTEMI (non-ST elevated myocardial infarction) Status: Acute Metabolic encephalopathy. Plan will follow Subjective No complaints Objective Vital Signs Date Time Temp Pulse Resp B/P Pulse Ox O2 Delivery O2 Flow Rate FiO2 08/04/16 07:00 97.5 73 20 135/55 97 Nasal Cannula 1.5 97.5 Intake and Output 08/04/16 07:00 Intake Total 100 ml Output Total 1500 ml Balance -1400 ml IV Total 100 ml Output Urine Total 1500 ml PHYSICAL EXAM Alert, oriented to person and "Hospital." PERRL. EOMI. CN: no focal findings. Muscle tone: normal. Muscle strength: moves all extremities, mittens in place DTR: 1+ Plantar reflex: flexor, LLE AKA Gait: not examined in bed. Sensory exam: no abnormal findings. No cerebellar signs elicited. Review of Relevant I have reviewed the following items chris (where applicable) has been applied. Labs Laboratory Tests Test 08/02/16 11:58 08/02/16 16:31 08/02/16 21:09 08/02/16 23:19 Glucose (Fingerstick) 178mg/dL (70-99) 235mg/dL (70-99) 253mg/dL (70-99) 244mg/dL (70-99) Test 08/03/16 05:03 08/03/16 08:00 08/03/16 11:32 08/03/16 17:33 Glucose (Fingerstick) 198mg/dL (70-99) 135mg/dL (70-99) 229mg/dL (70-99) White Blood Count 19.0x10^3/uL (4.0-11.0) Red Blood Count 3.76x10^6/uL (4.30-5.70) Hemoglobin 10.5g/dL (13.0-17.5) Hematocrit 33.5% (39.0-53.0) Mean Corpuscular Volume 89fL (79-100) Mean Corpuscular Hemoglobin 28pg (25-35) Mean Corpuscular Hemoglobin Concent 32g/dL (31-37) Red Cell Distribution Width 15.2% (11.5-14.5) Platelet Count 199x10^3/uL (140-400) Neutrophils (%) (Auto) 77% (31-73) Lymphocytes (%) (Auto) 9% (24-48) Monocytes (%) (Auto) 13% (0-9) Eosinophils (%) (Auto) 1% (0-3) Basophils (%) (Auto) 0% (0-3) Neutrophils # (Auto) 14.6x10^3uL (1.8-7.7) Lymphocytes # (Auto) 1.8x10^3/uL (1.0-4.8) Monocytes # (Auto) 2.5x10^3/uL (0.0-1.1) Eosinophils # (Auto) 0.1x10^3/uL (0.0-0.7) Basophils # (Auto) 0.0x10^3/uL (0.0-0.2) Sodium Level 145mmol/L (136-145) Potassium Level 3.8mmol/L (3.5-5.1) Chloride Level 108mmol/L (98-107) Carbon Dioxide Level 32mmol/L (21-32) Anion Gap 5 (6-14) Blood Urea Nitrogen 30mg/dL (8-26) Creatinine 0.9mg/dL (0.7-1.3) Estimated GFR (Cockcroft-Gault) 84.2 Glucose Level 164mg/dL (70-99) Calcium Level 8.7mg/dL (8.5-10.1) Test 08/03/16 21:13 08/03/16 23:42 08/04/16 04:30 08/04/16 05:31 Glucose (Fingerstick) 198mg/dL (70-99) 175mg/dL (70-99) 152mg/dL (70-99) White Blood Count 18.3x10^3/uL (4.0-11.0) Red Blood Count 3.68x10^6/uL (4.30-5.70) Hemoglobin 10.2g/dL (13.0-17.5) Hematocrit 32.8% (39.0-53.0) Mean Corpuscular Volume 89fL (79-100) Mean Corpuscular Hemoglobin 28pg (25-35) Mean Corpuscular Hemoglobin Concent 31g/dL (31-37) Red Cell Distribution Width 15.3% (11.5-14.5) Platelet Count 232x10^3/uL (140-400) Neutrophils (%) (Auto) 76% (31-73) Lymphocytes (%) (Auto) 10% (24-48) Monocytes (%) (Auto) 13% (0-9) Eosinophils (%) (Auto) 1% (0-3) Basophils (%) (Auto) 0% (0-3) Neutrophils # (Auto) 14.0x10^3uL (1.8-7.7) Lymphocytes # (Auto) 1.8x10^3/uL (1.0-4.8) Monocytes # (Auto) 2.3x10^3/uL (0.0-1.1) Eosinophils # (Auto) 0.2x10^3/uL (0.0-0.7) Basophils # (Auto) 0.0x10^3/uL (0.0-0.2) Sodium Level 143mmol/L (136-145) Potassium Level 3.9mmol/L (3.5-5.1) Chloride Level 107mmol/L (98-107) Carbon Dioxide Level 31mmol/L (21-32) Anion Gap 5 (6-14) Blood Urea Nitrogen 26mg/dL (8-26) Creatinine 0.9mg/dL (0.7-1.3) Estimated GFR (Cockcroft-Gault) 84.2 Glucose Level 182mg/dL (70-99) Calcium Level 8.6mg/dL (8.5-10.1) Laboratory Tests Test 08/03/16 11:32 08/03/16 17:33 08/03/16 21:13 08/03/16 23:42 Glucose (Fingerstick) 135mg/dL (70-99) 229mg/dL (70-99) 198mg/dL (70-99) 175mg/dL (70-99) Test 08/04/16 04:30 08/04/16 05:31 White Blood Count 18.3x10^3/uL (4.0-11.0) Red Blood Count 3.68x10^6/uL (4.30-5.70) Hemoglobin 10.2g/dL (13.0-17.5) Hematocrit 32.8% (39.0-53.0) Mean Corpuscular Volume 89fL (79-100) Mean Corpuscular Hemoglobin 28pg (25-35) Mean Corpuscular Hemoglobin Concent 31g/dL (31-37) Red Cell Distribution Width 15.3% (11.5-14.5) Platelet Count 232x10^3/uL (140-400) Neutrophils (%) (Auto) 76% (31-73) Lymphocytes (%) (Auto) 10% (24-48) Monocytes (%) (Auto) 13% (0-9) Eosinophils (%) (Auto) 1% (0-3) Basophils (%) (Auto) 0% (0-3) Neutrophils # (Auto) 14.0x10^3uL (1.8-7.7) Lymphocytes # (Auto) 1.8x10^3/uL (1.0-4.8) Monocytes # (Auto) 2.3x10^3/uL (0.0-1.1) Eosinophils # (Auto) 0.2x10^3/uL (0.0-0.7) Basophils # (Auto) 0.0x10^3/uL (0.0-0.2) Sodium Level 143mmol/L (136-145) Potassium Level 3.9mmol/L (3.5-5.1) Chloride Level 107mmol/L (98-107) Carbon Dioxide Level 31mmol/L (21-32) Anion Gap 5 (6-14) Blood Urea Nitrogen 26mg/dL (8-26) Creatinine 0.9mg/dL (0.7-1.3) Estimated GFR (Cockcroft-Gault) 84.2 Glucose Level 182mg/dL (70-99) Calcium Level 8.6mg/dL (8.5-10.1) Glucose (Fingerstick) 152mg/dL (70-99) Microbiology 07/28/16 Blood Culture - Final, Complete NO GROWTH AFTER 5 DAYS Medications Current Medications Naloxone HCl 0.4 mg 0.4 mg 1X ONCE IV Last administered on 07/28/16t 21:30; Start 07/28/16 at 21:30; Stop 07/28/16 at 21:31; Status DC Sodium Chloride 1,000 ml @ 1,000 mls/hr 1X ONCE IV Last administered on 21:30; Start 07/28/16 at 21:30; Stop 07/28/16 at 22:29; Status DC Ceftriaxone Sodium 1 gm/ Sodium Chloride 50 ml @ 100 mls/hr Q24H IV Last administered on 07/30/16 21:39; Start 07/29/16 at 21:00; Stop 07/31/16 at 17:33; Status DC Ceftriaxone Sodium 50 ml @ 100 mls/hr 1X ONCE IV Last administered on 21:35; Start 07/28/16 at 22:00; Stop 07/28/16 at 22:29; Status DC Heparin Sodium/ Dextrose 500 ml @ 0 mls/hr CONT PRN IV SEE I/O RECORD Last administered on 07/29/16 21:46; Start 07/28/16 at 22:00; Stop 07/30/16 at 07:59; Status DC Heparin Sodium (Porcine) 2,200 unit PRN Q6HRS PRN IV FOR UFH LEVEL LESS THAN 0.2 Last administered on 07/28/16 23:14; Start 07/28/16 at 22:00; Stop 07/30/16 at 08:00; Status DC Ondansetron HCl 4 mg 4 mg PRN Q8HRS PRN IV NAUSEA/VOMITING; Start 07/28/16 at 22 :15; Stop 07/29/16 at 22:14; Status DC Sodium Chloride 1,000 ml @ 125 mls/hr Q8H IV Last administered on 07/29/16 08: 16; Start 07/28/16 at 22:01; Stop 07/29/16 at 13:04; Status DC Metronidazole (FLAGYL 500Mmg PREMIX) 100 ml @ 100 mls/hr Q12HR IV Last administered on 08/04/16 09:06; Start 07/28/16 at 22:30 Hydralazine HCl (Apresoline) 10 mg PRN Q4HRS PRN IVP ELEVATED BP, SEE COMMENTS ; Start 07/29/16 at 03:00 Insulin Aspart (Novolog) 0-9 UNITS TIDWMEALS SQ Last administered on 07/31/16 17:51; Start 07/29/16 at 08:00; Stop 08/01/16 at 08:36; Status DC Dextrose 12.5 gm PRN Q15MIN PRN IV SEE COMMENTS; Start 07/29/16 at 03:00 Insulin Aspart (Novolog) 8 units 1X ONCE SQ Last administered on 07/29/16 08: 20; Start 07/29/16 at 08:30; Stop 07/29/16 at 08:31; Status DC Morphine Sulfate 2 mg PRN Q2HR PRN IV PAIN Last administered on 08/03/16 23:23 ; Start 07/29/16 at 09:00 Aspirin (Aspirin) 300 mg 1X ONCE GA Last administered on 07/29/16 13:17; Start 07/29/16 at 10:30; Stop 07/29/16 at 10:31; Status DC Heparin Sodium (Porcine) 1,800 unit PRN Q6HRS PRN IV FOR UFH LEVEL LESS THAN 0.2 Last administered on 07/29/16 10:35; Start 07/29/16 at 10:15; Stop 07/30/16 at 08:00; Status DC Metoprolol Tartrate (Lopressor) 5 mg Q6HRS IVP Last administered on 08/04/16 05:34; Start 07/29/16 at 13:00 Aspirin 150 mg 150 mg DAILY GA Last administered on 08/04/16 09:03; Start 07/30 at 09:00 Sodium Chloride 1,000 ml @ 60 mls/hr [id number] IV Last administered on 07/29/16 13:25; Start 07/29/16 at 13:30; Stop 07/29/16 at 13:31; Status DC Heparin Sodium (Porcine) 5000 unit/Sodium Chloride 505 ml @ 505 mls/hr 1X PERIOP ONCE IRR Last administered on 07/29/16 15:26; Start 07/29/16 at 14:00; Stop 07/29/16 at 14:59; Status DC Cefazolin Sodium/ Sodium Chloride (Ancef/Iv Sodium Chloride 0.9% 500ml Bag) 500 ml @ 500 mls/hr 1X PERIOP ONCE IRR Last administered on 07/29/16 15:26; Start 07/29/16 at 14:00; Stop 07/29/16 at 14:59; Status DC Gelatin (Gelfoam Size 12-7mm) 1 each STK-MED ONCE .ROUTE ; Start 07/29/16 at 13: 54; Stop 07/29/16 at 13:55; Status DC Cellulose 1 each STK-MED ONCE .ROUTE ; Start 07/29/16 at 13:54; Stop 07/29/16 at 13:55; Status DC Iohexol (Omnipaque 300 Mg/ml) 50 ml STK-MED ONCE .ROUTE ; Start 07/29/16 at 13:54 ; Stop 07/29/16 at 13:55; Status DC Gelatin (Gelfoam Size 100) 1 each STK-MED ONCE .ROUTE ; Start 07/29/16 at 13:54 ; Stop 07/29/16 at 13:55; Status DC Papaverine HCl 60 mg STK-MED ONCE .ROUTE ; Start 07/29/16 at 13:54; Stop 07/29/16 at 13:55; Status DC Thrombin 20,000 unit STK-MED ONCE TP ; Start 07/29/16 at 13:54; Stop 07/29/16 at 13:55; Status DC Midazolam HCl (Versed) 2 mg STK-MED ONCE .ROUTE ; Start 07/29/16 at 14:14; Stop 07/29/16 at 14:15; Status DC Fentanyl Citrate (Fentanyl 5ml Vial) 250 mcg STK-MED ONCE .ROUTE ; Start at 14:14; Stop 07/29/16 at 14:15; Status DC Rocuronium Renick 50 mg 50 mg STK-MED ONCE .ROUTE ; Start 07/29/16 at 14:14; Stop 07/29/16 at 14:15; Status DC Propofol (Diprivan) 20 ml @ As Directed STK-MED ONCE IV ; Start 07/29/16 at 14:14 ; Stop 07/29/16 at 14:15; Status DC Dexamethasone Sodium Phosphate (Decadron) 20 mg STK-MED ONCE .ROUTE ; Start 07/29 at 14:14; Stop 07/29/16 at 14:15; Status DC Ondansetron HCl (Zofran) 4 mg STK-MED ONCE .ROUTE ; Start 07/29/16 at 14:14; Stop 07/29/16 at 14:15; Status DC Lidocaine HCl 100 mg STK-MED ONCE .ROUTE ; Start 07/29/16 at 14:15; Stop 07/29/16 at 14:16; Status DC Succinylcholine Chloride (Anectine) 200 mg STK-MED ONCE .ROUTE ; Start 07/29/16 at 14:43; Stop 07/29/16 at 14:44; Status DC Phenylephrine HCl 1 mg STK-MED ONCE IV ; Start 07/29/16 at 15:01; Stop 07/29/16 at 15:02; Status DC Ephedrine Sulfate 50 mg 50 mg STK-MED ONCE .ROUTE ; Start 07/29/16 at 15:28; Stop 07/29/16 at 15:29; Status DC Insulin Human Regular/Sodium Chloride (Novolin R Vial/ Iv Normal Saline 150ml) 151.5 ml @ 7.29 mls/hr 1X ONCE IV ; Start 07/29/16 at 16:45; Stop 07/30/16 at 12 :52; Status DC Info (Anti-Coagulation Monitoring By Pharmacy) 1 each PRN DAILY PRN MC SEE COMMENTS Last administered on 07/29/16t 17:00; Start 07/29/16 at 17:00; Stop at 12:51; Status DC Heparin Sodium (Porcine) 10,000 unit STK-MED ONCE .ROUTE ; Start 07/29/16 at 17: 02; Stop 07/29/16 at 17:03; Status DC Neostigmine Methylsulfate 5 mg STK-MED ONCE .ROUTE ; Start 07/29/16 at 20:52; Stop 07/29/16 at 20:53; Status DC Glycopyrrolate (Robinul) 1 mg STK-MED ONCE .ROUTE ; Start 07/29/16 at 20:52; Stop 07/29/16 at 20:53; Status DC Fentanyl Citrate (Fentanyl 2ml Vial) 50 mcg PRN Q5MIN PRN IV Acute Pain; Start 07/29/16 at 21:15; Stop 07/30/16 at 21:14; Status DC Morphine Sulfate 4 mg PRN Q10MIN PRN IV Moderate Pain; Start 07/29/16 at 21:15; Stop 07/30/16 at 21:14; Status DC Hydromorphone HCl (Dilaudid) 0.4 mg PRN Q10MIN PRN IV Moderate to severe pain; Start 07/29/16 at 21:15; Stop 07/30/16 at 21:14; Status DC Meperidine HCl (Demerol) 12.5 mg PRN Q5MIN PRN IV SHIVERING; Start 07/29/16 at 21:15; Stop 07/30/16 at 00:00; Status DC Prochlorperazine Edisylate (Compazine) 5 mg PRN Q6HRS PRN IV Nausea/Vomiting, 1st Choice; Start 07/29/16 at 21:15; Stop 07/30/16 at 21:14; Status DC Diphenhydramine HCl 12.5 mg 12.5 mg PRN Q2HR PRN IV ITCHING; Start 07/29/16 at 21:15; Stop 07/30/16 at 21:14; Status DC Sodium Chloride (Iv Sodium Chloride 0.45%) 1,000 ml @ 100 mls/hr Q10H IV Last administered on 07/29/16 21:59; Start 07/29/16 at 22:00; Stop 07/30/16 at 09:41; Status DC Cefazolin Sodium/ Dextrose (Ancef 2gm Premix) 2 gm STK-MED ONCE IV ; Start at 17:35; Stop 07/30/16 at 08:53; Status DC Pantoprazole Sodium 40 mg 40 mg [id number] IVP Last administered on 08/01/16 17:18 ; Start 07/30/16 at 18:00; Stop 08/01/16 at 20:26; Status DC Sodium Chloride 1,000 ml @ 60 mls/hr [id number] IV Last administered on 07/30/16 09:47; Start 07/30/16 at 09:45; Stop 07/30/16 at 12:47; Status DC Cefazolin Sodium/ Sodium Chloride (Ancef/Iv Sodium Chloride 0.9% 500ml Bag) 500 ml @ 500 mls/hr 1X PERIOP ONCE IRR Last administered on 07/31/16 13:47; Start 07/31/16 at 06:00; Stop 07/31/16 at 06:59; Status DC Insulin Detemir (Levemir) 15 units [id number] SQ Last administered on 07/30/16 12: 57; Start 07/30/16 at 13:00; Stop 08/01/16 at 08:36; Status DC Insulin Aspart 12 units 12 units 1X ONCE SQ ; Start 07/30/16 at 12:45; Stop 07/30 at 12:47; Status DC Amino Acids/ Electrolytes/ Dextrose (Clinimix E 4.25%-5% Solution) 1,000 ml @ 80 mls/hr [id number] IV Last administered on 08/02/16 17:50; Start 07/30/16 at 13: 00; Stop 08/03/16 at 03:41; Status DC Ondansetron HCl (Zofran) 4 mg PRN Q6HRS PRN IV Nausea; Start 07/31/16 at 07:00; Stop 08/01/16 at 06:59; Status DC Fentanyl Citrate (Fentanyl 2ml Vial) 25 mcg PRN Q5MIN PRN IV MILD PAIN; Start 07/31/16 at 07:00; Stop 08/01/16 at 06:59; Status DC Fentanyl Citrate (Fentanyl 2ml Vial) 50 mcg PRN Q5MIN PRN IV MODERATE PAIN; Start 07/31/16 at 07:00; Stop 08/01/16 at 06:59; Status DC Morphine Sulfate 1 mg 1 mg PRN Q10MIN PRN IV SEVERE PAIN; Start 07/31/16 at 07: 00; Stop 08/01/16 at 06:59; Status DC Lactated Ringer's (Iv Lactated Ringers) 1,000 ml @ 30 mls/hr Q24H IV Last administered on 07/31/16 15:53; Start 07/31/16 at 07:00; Stop 07/31/16 at 18:59; Status DC Lidocaine HCl 2 ml 1X PRN PRN ID IV START; Start 07/31/16 at 07:00; Stop at 06:59; Status DC Hydromorphone HCl (Dilaudid) 0.5 mg PRN Q10MIN PRN IV SEVERE PAIN, Second choice; Start 07/31/16 at 07:00; Stop 08/01/16 at 06:59; Status DC Prochlorperazine Edisylate (Compazine) 5 mg PACU PRN PRN IV NAUSEA; Start at 07:00; Stop 08/01/16 at 06:59; Status DC Insulin Detemir (Levemir) 10 units QHS SQ Last administered on 07/31/16 21:49; Start 07/31/16 at 21:00; Stop 08/01/16 at 08:36; Status DC Enalaprilat (Vasotec) 1.25 mg Q6HRS IV ; Start 07/31/16 at 12:00; Stop 07/31/16 at 12:00; Status DC Enalaprilat (Vasotec) 0.625 mg Q6HRS IV Last administered on 08/04/16t 05:35; Start 07/31/16 at 12:00 Fentanyl Citrate (Fentanyl 2ml Vial) 100 mcg STK-MED ONCE .ROUTE ; Start at 12:49; Stop 07/31/16 at 12:50; Status DC Rocuronium Renick (Zemuron) 50 mg STK-MED ONCE .ROUTE ; Start 07/31/16 at 12:49 ; Stop 07/31/16 at 12:50; Status DC Lidocaine HCl 100 mg 100 mg STK-MED ONCE .ROUTE ; Start 07/31/16 at 13:17; Stop 07/31/16 at 13:18; Status DC Propofol (Diprivan) 20 ml @ As Directed STK-MED ONCE IV ; Start 07/31/16 at 13:17 ; Stop 07/31/16 at 13:18; Status DC Succinylcholine Chloride (Anectine) 200 mg STK-MED ONCE .ROUTE ; Start 07/31/16 at 13:30; Stop 07/31/16 at 13:31; Status DC Dexamethasone Sodium Phosphate (Decadron) 20 mg STK-MED ONCE .ROUTE ; Start 07/31 at 13:42; Stop 07/31/16 at 13:43; Status DC Ondansetron HCl (Zofran) 4 mg STK-MED ONCE .ROUTE ; Start 07/31/16 at 13:42; Stop 07/31/16 at 13:43; Status DC Phenylephrine HCl 1 mg STK-MED ONCE IV ; Start 07/31/16 at 13:47; Stop 07/31/16 at 13:48; Status DC Fentanyl Citrate (Fentanyl 2ml Vial) 100 mcg STK-MED ONCE .ROUTE ; Start at 14:26; Stop 07/31/16 at 14:27; Status DC Sevoflurane (Ultane) 60 ml STK-MED ONCE IH ; Start 07/31/16 at 15:13; Stop at 15:14; Status DC Insulin Aspart (Novolog Vial) 3 unit 1X ONCE SQ ; Start 07/31/16 at 15:45; Stop 07/31/16 at 15:45; Status DC Insulin Aspart (Novolog) 3 units 1X ONCE SQ ; Start 07/31/16 at 15:45; Stop 07/31 at 15:46; Status Cancel Insulin Aspart (Novolog Vial) 100 unit STK-MED ONCE SQ ; Start 07/31/16 at 15:41 ; Stop 07/31/16 at 15:42; Status DC Insulin Aspart (Novolog Vial) 3 unit 1X ONCE SQ ; Start 07/31/16 at 16:00; Stop 07/31/16 at 16:01; Status Cancel Insulin Aspart 3 unit 3 unit 1X ONCE SQ Last administered on 07/31/16 15:57; Start 07/31/16 at 16:00; Stop 07/31/16 at 16:01; Status DC Ceftriaxone Sodium/Sodium Chloride (Rocephin/Iv Sodium Chloride 0.9% 50ml) 50 ml @ 100 mls/hr Q24H IV Last administered on 08/03/16 14:36; Start 08/01/16 at 14:00 Insulin Aspart (Novolog) 0-9 UNITS Q6HRS SQ Last administered on 08/03/16 18: 14; Start 08/01/16 at 12:00 Insulin Detemir (Levemir) 30 units QHS SQ Last administered on 08/03/16 21:22 ; Start 08/01/16 at 21:00 Pantoprazole Sodium 40 mg 40 mg BID IVP Last administered on 08/04/16 09:04; Start 08/01/16 at 21:00 Amino Acids/ Electrolytes 1,000 ml @ 80 mls/hr [id number] IV Last administered on 08/03/16 05:09; Start 08/03/16 at 03:41; Stop 08/03/16 at 17:24; Status DC Amino Acids/ Electrolytes (Clinimix E 2.75%-5% Solution) 2,000 ml @ 80 mls/hr Q24H IV Last administered on 08/03/16 18:07; Start 08/03/16 at 17:24 Active Scripts Active Reported Hydrocodone-Apap 5-325 (Hydrocodone Bit/Acetaminophen) 1 Each Tablet 1 Tab PO Q4HRS PRN Vitals/I & O Vital Sign - Last 24 Hours 08/03/16 08/03/16 08/03/16 08/03/16 11:25 12:23 12:24 14:37 Temp 97.8 97.8 Pulse 76 Resp 18 B/P 141/70 141/70 141/70 Pulse Ox 97 O2 Delivery Nasal Cannula Nasal Cannula O2 Flow Rate 2.0 2.0 08/03/16 08/03/16 08/03/16 08/03/16 14:41 15:07 18:09 18:13 Temp 97.4 97.4 Pulse 65 73 73 Resp 20 B/P 123/59 Pulse Ox 97 O2 Delivery Nasal Cannula O2 Flow Rate 2.0 2.0 08/03/16 08/03/16 08/03/16 08/03/16 19:10 20:00 23:21 23:22 Temp 98.4 98.4 Pulse 70 75 75 Resp 18 B/P 109/57 151/54 151/54 Pulse Ox 97 O2 Delivery Nasal Cannula Nasal Cannula O2 Flow Rate 4.0 2.0 08/03/16 08/03/16 08/03/16 08/04/16 23:23 23:31 23:53 03:41 Temp 97.6 97.6 97.6 97.6 Pulse 63 74 Resp 18 18 B/P 151/54 151/54 Pulse Ox 97 97 97 O2 Delivery Nasal Cannula Nasal Cannula Nasal Cannula Nasal Cannula O2 Flow Rate 4.0 1.5 1.5 08/04/16 08/04/16 08/04/16 05:34 05:35 07:00 Temp 97.5 97.5 Pulse 73 73 73 Resp 20 B/P 133/65 133/65 135/55 Pulse Ox 97 O2 Delivery Nasal Cannula O2 Flow Rate 1.5 Intake and Output 08/03/16 08/03/16 08/04/16 15:00 23:00 07:00 Intake Total 100 ml Output Total 600 ml 900 ml Balance -500 ml -900 ml SHERRY ALCANTARA MD Aug 04, 2016 10:07
[2016-08-04 11:00] VITALS: BP 141/51
--- NOTE | 2016-08-04 11:43 | PDOC ---
PROGRESS NOTES Chief Complaint Chief Complaint A/P s/p LEFt AKA () for Severe PVD Acute metabolic encephalopathy - multifactorial, metabolic, hypoxic, improving. Dm 1 with Hyperglycemia. NSTEMI, med management now Vasomotor nephropathy, Diabetes with severe chronic atherosclerosis, multilevel. Cardiomyopathy Chronic systolic HF PAD Leucocytosis Plan CXR TODAY Cardiology to adjust medications, diuresis for any vascular congestion on cxr BNP now clear liquid diet and PPN SSI AC and HS for hyperglycemia Pain control labs reviewed, monitor WBC Follow vascular recommendations. History of Present Illness History of Present Illness ALERT answering question s physically weak in appearance Vitals Vitals Vital Signs Date Time Temp Pulse Resp B/P Pulse Ox O2 Delivery O2 Flow Rate FiO2 08/04/16 11:00 98.3 70 16 141/51 98 Nasal Cannula 1.5 98.3 Physical Exam General: Alert, Oriented X3, No acute distress, Other Heart: Regular rate, Normal S1, Normal S2, No murmurs, Other (2/6 systolic murmur to LLS border) Lungs: Clear Abdomen: Normal bowel sounds, Soft, No tenderness Extremities: Other Skin: No breakdown, Other Labs LABS Laboratory Tests Test 08/03/16 17:33 08/03/16 21:13 08/03/16 23:42 08/04/16 04:30 Glucose (Fingerstick) 229mg/dL (70-99) 198mg/dL (70-99) 175mg/dL (70-99) White Blood Count 18.3x10^3/uL (4.0-11.0) Red Blood Count 3.68x10^6/uL (4.30-5.70) Hemoglobin 10.2g/dL (13.0-17.5) Hematocrit 32.8% (39.0-53.0) Mean Corpuscular Volume 89fL (79-100) Mean Corpuscular Hemoglobin 28pg (25-35) Mean Corpuscular Hemoglobin Concent 31g/dL (31-37) Red Cell Distribution Width 15.3% (11.5-14.5) Platelet Count 232x10^3/uL (140-400) Neutrophils (%) (Auto) 76% (31-73) Lymphocytes (%) (Auto) 10% (24-48) Monocytes (%) (Auto) 13% (0-9) Eosinophils (%) (Auto) 1% (0-3) Basophils (%) (Auto) 0% (0-3) Neutrophils # (Auto) 14.0x10^3uL (1.8-7.7) Lymphocytes # (Auto) 1.8x10^3/uL (1.0-4.8) Monocytes # (Auto) 2.3x10^3/uL (0.0-1.1) Eosinophils # (Auto) 0.2x10^3/uL (0.0-0.7) Basophils # (Auto) 0.0x10^3/uL (0.0-0.2) Sodium Level 143mmol/L (136-145) Potassium Level 3.9mmol/L (3.5-5.1) Chloride Level 107mmol/L (98-107) Carbon Dioxide Level 31mmol/L (21-32) Anion Gap 5 (6-14) Blood Urea Nitrogen 26mg/dL (8-26) Creatinine 0.9mg/dL (0.7-1.3) Estimated GFR (Cockcroft-Gault) 84.2 Glucose Level 182mg/dL (70-99) Calcium Level 8.6mg/dL (8.5-10.1) Test 08/04/16 05:31 Glucose (Fingerstick) 152mg/dL (70-99) Assessment and Plan Assessmemt and Plan Problems Medical Problems: (1) Altered mental status Status: Acute (2) Dehydration Status: Acute (3) NSTEMI (non-ST elevated myocardial infarction) Status: Acute Problems: Comment Review of Relevant I have reviewed the following items chris (where applicable) has been applied. Labs Laboratory Tests Test 08/02/16 11:58 08/02/16 16:31 08/02/16 21:09 08/02/16 23:19 Glucose (Fingerstick) 178mg/dL (70-99) 235mg/dL (70-99) 253mg/dL (70-99) 244mg/dL (70-99) Test 08/03/16 05:03 08/03/16 08:00 08/03/16 11:32 08/03/16 17:33 Glucose (Fingerstick) 198mg/dL (70-99) 135mg/dL (70-99) 229mg/dL (70-99) White Blood Count 19.0x10^3/uL (4.0-11.0) Red Blood Count 3.76x10^6/uL (4.30-5.70) Hemoglobin 10.5g/dL (13.0-17.5) Hematocrit 33.5% (39.0-53.0) Mean Corpuscular Volume 89fL (79-100) Mean Corpuscular Hemoglobin 28pg (25-35) Mean Corpuscular Hemoglobin Concent 32g/dL (31-37) Red Cell Distribution Width 15.2% (11.5-14.5) Platelet Count 199x10^3/uL (140-400) Neutrophils (%) (Auto) 77% (31-73) Lymphocytes (%) (Auto) 9% (24-48) Monocytes (%) (Auto) 13% (0-9) Eosinophils (%) (Auto) 1% (0-3) Basophils (%) (Auto) 0% (0-3) Neutrophils # (Auto) 14.6x10^3uL (1.8-7.7) Lymphocytes # (Auto) 1.8x10^3/uL (1.0-4.8) Monocytes # (Auto) 2.5x10^3/uL (0.0-1.1) Eosinophils # (Auto) 0.1x10^3/uL (0.0-0.7) Basophils # (Auto) 0.0x10^3/uL (0.0-0.2) Sodium Level 145mmol/L (136-145) Potassium Level 3.8mmol/L (3.5-5.1) Chloride Level 108mmol/L (98-107) Carbon Dioxide Level 32mmol/L (21-32) Anion Gap 5 (6-14) Blood Urea Nitrogen 30mg/dL (8-26) Creatinine 0.9mg/dL (0.7-1.3) Estimated GFR (Cockcroft-Gault) 84.2 Glucose Level 164mg/dL (70-99) Calcium Level 8.7mg/dL (8.5-10.1) Test 08/03/16 21:13 08/03/16 23:42 08/04/16 04:30 08/04/16 05:31 Glucose (Fingerstick) 198mg/dL (70-99) 175mg/dL (70-99) 152mg/dL (70-99) White Blood Count 18.3x10^3/uL (4.0-11.0) Red Blood Count 3.68x10^6/uL (4.30-5.70) Hemoglobin 10.2g/dL (13.0-17.5) Hematocrit 32.8% (39.0-53.0) Mean Corpuscular Volume 89fL (79-100) Mean Corpuscular Hemoglobin 28pg (25-35) Mean Corpuscular Hemoglobin Concent 31g/dL (31-37) Red Cell Distribution Width 15.3% (11.5-14.5) Platelet Count 232x10^3/uL (140-400) Neutrophils (%) (Auto) 76% (31-73) Lymphocytes (%) (Auto) 10% (24-48) Monocytes (%) (Auto) 13% (0-9) Eosinophils (%) (Auto) 1% (0-3) Basophils (%) (Auto) 0% (0-3) Neutrophils # (Auto) 14.0x10^3uL (1.8-7.7) Lymphocytes # (Auto) 1.8x10^3/uL (1.0-4.8) Monocytes # (Auto) 2.3x10^3/uL (0.0-1.1) Eosinophils # (Auto) 0.2x10^3/uL (0.0-0.7) Basophils # (Auto) 0.0x10^3/uL (0.0-0.2) Sodium Level 143mmol/L (136-145) Potassium Level 3.9mmol/L (3.5-5.1) Chloride Level 107mmol/L (98-107) Carbon Dioxide Level 31mmol/L (21-32) Anion Gap 5 (6-14) Blood Urea Nitrogen 26mg/dL (8-26) Creatinine 0.9mg/dL (0.7-1.3) Estimated GFR (Cockcroft-Gault) 84.2 Glucose Level 182mg/dL (70-99) Calcium Level 8.6mg/dL (8.5-10.1) Laboratory Tests Test 08/03/16 17:33 08/03/16 21:13 08/03/16 23:42 08/04/16 04:30 Glucose (Fingerstick) 229mg/dL (70-99) 198mg/dL (70-99) 175mg/dL (70-99) White Blood Count 18.3x10^3/uL (4.0-11.0) Red Blood Count 3.68x10^6/uL (4.30-5.70) Hemoglobin 10.2g/dL (13.0-17.5) Hematocrit 32.8% (39.0-53.0) Mean Corpuscular Volume 89fL (79-100) Mean Corpuscular Hemoglobin 28pg (25-35) Mean Corpuscular Hemoglobin Concent 31g/dL (31-37) Red Cell Distribution Width 15.3% (11.5-14.5) Platelet Count 232x10^3/uL (140-400) Neutrophils (%) (Auto) 76% (31-73) Lymphocytes (%) (Auto) 10% (24-48) Monocytes (%) (Auto) 13% (0-9) Eosinophils (%) (Auto) 1% (0-3) Basophils (%) (Auto) 0% (0-3) Neutrophils # (Auto) 14.0x10^3uL (1.8-7.7) Lymphocytes # (Auto) 1.8x10^3/uL (1.0-4.8) Monocytes # (Auto) 2.3x10^3/uL (0.0-1.1) Eosinophils # (Auto) 0.2x10^3/uL (0.0-0.7) Basophils # (Auto) 0.0x10^3/uL (0.0-0.2) Sodium Level 143mmol/L (136-145) Potassium Level 3.9mmol/L (3.5-5.1) Chloride Level 107mmol/L (98-107) Carbon Dioxide Level 31mmol/L (21-32) Anion Gap 5 (6-14) Blood Urea Nitrogen 26mg/dL (8-26) Creatinine 0.9mg/dL (0.7-1.3) Estimated GFR (Cockcroft-Gault) 84.2 Glucose Level 182mg/dL (70-99) Calcium Level 8.6mg/dL (8.5-10.1) Test 08/04/16 05:31 Glucose (Fingerstick) 152mg/dL (70-99) Microbiology 07/28/16 Blood Culture - Final, Complete NO GROWTH AFTER 5 DAYS Medications Current Medications Naloxone HCl 0.4 mg 0.4 mg 1X ONCE IV Last administered on 07/28/16 21:30; Start 07/28/16 at 21:30; Stop 07/28/16 at 21:31; Status DC Sodium Chloride 1,000 ml @ 1,000 mls/hr 1X ONCE IV Last administered on 21:30; Start 07/28/16 at 21:30; Stop 07/28/16 at 22:29; Status DC Ceftriaxone Sodium 1 gm/ Sodium Chloride 50 ml @ 100 mls/hr Q24H IV Last administered on 07/30/16 21:39; Start 07/29/16 at 21:00; Stop 07/31/16 at 17:33; Status DC Ceftriaxone Sodium 50 ml @ 100 mls/hr 1X ONCE IV Last administered on 21:35; Start 07/28/16 at 22:00; Stop 07/28/16 at 22:29; Status DC Heparin Sodium/ Dextrose 500 ml @ 0 mls/hr CONT PRN IV SEE I/O RECORD Last administered on 07/29/16 21:46; Start 07/28/16 at 22:00; Stop 07/30/16 at 07:59; Status DC Heparin Sodium (Porcine) 2,200 unit PRN Q6HRS PRN IV FOR UFH LEVEL LESS THAN 0.2 Last administered on 07/28/16 23:14; Start 07/28/16 at 22:00; Stop 07/30/16 at 08:00; Status DC Ondansetron HCl 4 mg 4 mg PRN Q8HRS PRN IV NAUSEA/VOMITING; Start 07/28/16 at 22 :15; Stop 07/29/16 at 22:14; Status DC Sodium Chloride 1,000 ml @ 125 mls/hr Q8H IV Last administered on 07/29/16 08: 16; Start 07/28/16 at 22:01; Stop 07/29/16 at 13:04; Status DC Metronidazole (FLAGYL 500Mmg PREMIX) 100 ml @ 100 mls/hr Q12HR IV Last administered on 08/04/16 09:06; Start 07/28/16 at 22:30 Hydralazine HCl (Apresoline) 10 mg PRN Q4HRS PRN IVP ELEVATED BP, SEE COMMENTS ; Start 07/29/16 at 03:00 Insulin Aspart (Novolog) 0-9 UNITS TIDWMEALS SQ Last administered on 07/31/16 17:51; Start 07/29/16 at 08:00; Stop 08/01/16 at 08:36; Status DC Dextrose 12.5 gm PRN Q15MIN PRN IV SEE COMMENTS; Start 07/29/16 at 03:00 Insulin Aspart (Novolog) 8 units 1X ONCE SQ Last administered on 07/29/16 08: 20; Start 07/29/16 at 08:30; Stop 07/29/16 at 08:31; Status DC Morphine Sulfate 2 mg PRN Q2HR PRN IV PAIN Last administered on 08/03/16 23:23 ; Start 07/29/16 at 09:00 Aspirin (Aspirin) 300 mg 1X ONCE MI Last administered on 07/29/16 13:17; Start 07/29/16 at 10:30; Stop 07/29/16 at 10:31; Status DC Heparin Sodium (Porcine) 1,800 unit PRN Q6HRS PRN IV FOR UFH LEVEL LESS THAN 0.2 Last administered on 07/29/16 10:35; Start 07/29/16 at 10:15; Stop 07/30/16 at 08:00; Status DC Metoprolol Tartrate (Lopressor) 5 mg Q6HRS IVP Last administered on 08/04/16 05:34; Start 07/29/16 at 13:00 Aspirin 150 mg 150 mg DAILY MI Last administered on 08/04/16 09:03; Start 07/30 at 09:00 Sodium Chloride 1,000 ml @ 60 mls/hr [id number] IV Last administered on 07/29/16 13:25; Start 07/29/16 at 13:30; Stop 07/29/16 at 13:31; Status DC Heparin Sodium (Porcine) 5000 unit/Sodium Chloride 505 ml @ 505 mls/hr 1X PERIOP ONCE IRR Last administered on 3/7/17at 15:26; Start 07/29/16 at 14:00; Stop 07/29/16 at 14:59; Status DC Cefazolin Sodium/ Sodium Chloride (Ancef/Iv Sodium Chloride 0.9% 500ml Bag) 500 ml @ 500 mls/hr 1X PERIOP ONCE IRR Last administered on 07/29/16t 15:26; Start 07/29/16 at 14:00; Stop 07/29/16 at 14:59; Status DC Gelatin (Gelfoam Size 12-7mm) 1 each STK-MED ONCE .ROUTE ; Start 07/29/16 at 13: 54; Stop 07/29/16 at 13:55; Status DC Cellulose 1 each STK-MED ONCE .ROUTE ; Start 07/29/16 at 13:54; Stop 07/29/16 at 13:55; Status DC Iohexol (Omnipaque 300 Mg/ml) 50 ml STK-MED ONCE .ROUTE ; Start 07/29/16 at 13:54 ; Stop 07/29/16 at 13:55; Status DC Gelatin (Gelfoam Size 100) 1 each STK-MED ONCE .ROUTE ; Start 07/29/16 at 13:54 ; Stop 07/29/16 at 13:55; Status DC Papaverine HCl 60 mg STK-MED ONCE .ROUTE ; Start 07/29/16 at 13:54; Stop 07/29/16 at 13:55; Status DC Thrombin 20,000 unit STK-MED ONCE TP ; Start 07/29/16 at 13:54; Stop 07/29/16 at 13:55; Status DC Midazolam HCl (Versed) 2 mg STK-MED ONCE .ROUTE ; Start 07/29/16 at 14:14; Stop 07/29/16 at 14:15; Status DC Fentanyl Citrate (Fentanyl 5ml Vial) 250 mcg STK-MED ONCE .ROUTE ; Start at 14:14; Stop 07/29/16 at 14:15; Status DC Rocuronium [place] 50 mg 50 mg STK-MED ONCE .ROUTE ; Start 07/29/16 at 14:14; Stop 07/29/16 at 14:15; Status DC Propofol (Diprivan) 20 ml @ As Directed STK-MED ONCE IV ; Start 07/29/16 at 14:14 ; Stop 07/29/16 at 14:15; Status DC Dexamethasone Sodium Phosphate (Decadron) 20 mg STK-MED ONCE .ROUTE ; Start 07/29 at 14:14; Stop 07/29/16 at 14:15; Status DC Ondansetron HCl (Zofran) 4 mg STK-MED ONCE .ROUTE ; Start 07/29/16 at 14:14; Stop 07/29/16 at 14:15; Status DC Lidocaine HCl 100 mg STK-MED ONCE .ROUTE ; Start 07/29/16 at 14:15; Stop 07/29/16 at 14:16; Status DC Succinylcholine Chloride (Anectine) 200 mg STK-MED ONCE .ROUTE ; Start 07/29/16 at 14:43; Stop 07/29/16 at 14:44; Status DC Phenylephrine HCl 1 mg STK-MED ONCE IV ; Start 07/29/16 at 15:01; Stop 07/29/16 at 15:02; Status DC Ephedrine Sulfate 50 mg 50 mg STK-MED ONCE .ROUTE ; Start 07/29/16 at 15:28; Stop 07/29/16 at 15:29; Status DC Insulin Human Regular/Sodium Chloride (Novolin R Vial/ Iv Normal Saline 150ml) 151.5 ml @ 7.29 mls/hr 1X ONCE IV ; Start 07/29/16 at 16:45; Stop 07/30/16 at 12 :52; Status DC Info (Anti-Coagulation Monitoring By Pharmacy) 1 each PRN DAILY PRN MC SEE COMMENTS Last administered on 07/29/16t 17:00; Start 07/29/16 at 17:00; Stop at 12:51; Status DC Heparin Sodium (Porcine) 10,000 unit STK-MED ONCE .ROUTE ; Start 07/29/16 at 17: 02; Stop 07/29/16 at 17:03; Status DC Neostigmine Methylsulfate 5 mg STK-MED ONCE .ROUTE ; Start 07/29/16 at 20:52; Stop 07/29/16 at 20:53; Status DC Glycopyrrolate (Robinul) 1 mg STK-MED ONCE .ROUTE ; Start 07/29/16 at 20:52; Stop 07/29/16 at 20:53; Status DC Fentanyl Citrate (Fentanyl 2ml Vial) 50 mcg PRN Q5MIN PRN IV Acute Pain; Start 07/29/16 at 21:15; Stop 07/30/16 at 21:14; Status DC Morphine Sulfate 4 mg PRN Q10MIN PRN IV Moderate Pain; Start 07/29/16 at 21:15; Stop 07/30/16 at 21:14; Status DC Hydromorphone HCl (Dilaudid) 0.4 mg PRN Q10MIN PRN IV Moderate to severe pain; Start 07/29/16 at 21:15; Stop 07/30/16 at 21:14; Status DC Meperidine HCl (Demerol) 12.5 mg PRN Q5MIN PRN IV SHIVERING; Start 07/29/16 at 21:15; Stop 07/30/16 at 00:00; Status DC Prochlorperazine Edisylate (Compazine) 5 mg PRN Q6HRS PRN IV Nausea/Vomiting, 1st Choice; Start 07/29/16 at 21:15; Stop 07/30/16 at 21:14; Status DC Diphenhydramine HCl 12.5 mg 12.5 mg PRN Q2HR PRN IV ITCHING; Start 07/29/16 at 21:15; Stop 07/30/16 at 21:14; Status DC Sodium Chloride (Iv Sodium Chloride 0.45%) 1,000 ml @ 100 mls/hr Q10H IV Last administered on 07/29/16 21:59; Start 07/29/16 at 22:00; Stop 07/30/16 at 09:41; Status DC Cefazolin Sodium/ Dextrose (Ancef 2gm Premix) 2 gm STK-MED ONCE IV ; Start at 17:35; Stop 07/30/16 at 08:53; Status DC Pantoprazole Sodium 40 mg 40 mg [id number] IVP Last administered on 08/01/16 17:18 ; Start 07/30/16 at 18:00; Stop 08/01/16 at 20:26; Status DC Sodium Chloride 1,000 ml @ 60 mls/hr [id number] IV Last administered on 07/30/16 09:47; Start 07/30/16 at 09:45; Stop 07/30/16 at 12:47; Status DC Cefazolin Sodium/ Sodium Chloride (Ancef/Iv Sodium Chloride 0.9% 500ml Bag) 500 ml @ 500 mls/hr 1X PERIOP ONCE IRR Last administered on 07/31/16 13:47; Start 07/31/16 at 06:00; Stop 07/31/16 at 06:59; Status DC Insulin Detemir (Levemir) 15 units [id number] SQ Last administered on 07/30/16 12: 57; Start 07/30/16 at 13:00; Stop 08/01/16 at 08:36; Status DC Insulin Aspart 12 units 12 units 1X ONCE SQ ; Start 07/30/16 at 12:45; Stop 07/30 at 12:47; Status DC Amino Acids/ Electrolytes/ Dextrose (Clinimix E 4.25%-5% Solution) 1,000 ml @ 80 mls/hr [id number] IV Last administered on 08/02/16 17:50; Start 07/30/16 at 13: 00; Stop 08/03/16 at 03:41; Status DC Ondansetron HCl (Zofran) 4 mg PRN Q6HRS PRN IV Nausea; Start 07/31/16 at 07:00; Stop 08/01/16 at 06:59; Status DC Fentanyl Citrate (Fentanyl 2ml Vial) 25 mcg PRN Q5MIN PRN IV MILD PAIN; Start 07/31/16 at 07:00; Stop 08/01/16 at 06:59; Status DC Fentanyl Citrate (Fentanyl 2ml Vial) 50 mcg PRN Q5MIN PRN IV MODERATE PAIN; Start 07/31/16 at 07:00; Stop 08/01/16 at 06:59; Status DC Morphine Sulfate 1 mg 1 mg PRN Q10MIN PRN IV SEVERE PAIN; Start 07/31/16 at 07: 00; Stop 08/01/16 at 06:59; Status DC Lactated Ringer's (Iv Lactated Ringers) 1,000 ml @ 30 mls/hr Q24H IV Last administered on 07/31/16 15:53; Start 07/31/16 at 07:00; Stop 07/31/16 at 18:59; Status DC Lidocaine HCl 2 ml 1X PRN PRN ID IV START; Start 07/31/16 at 07:00; Stop at 06:59; Status DC Hydromorphone HCl (Dilaudid) 0.5 mg PRN Q10MIN PRN IV SEVERE PAIN, Second choice; Start 07/31/16 at 07:00; Stop 08/01/16 at 06:59; Status DC Prochlorperazine Edisylate (Compazine) 5 mg PACU PRN PRN IV NAUSEA; Start at 07:00; Stop 08/01/16 at 06:59; Status DC Insulin Detemir (Levemir) 10 units QHS SQ Last administered on 07/31/16 21:49; Start 07/31/16 at 21:00; Stop 08/01/16 at 08:36; Status DC Enalaprilat (Vasotec) 1.25 mg Q6HRS IV ; Start 07/31/16 at 12:00; Stop 07/31/16 at 12:00; Status DC Enalaprilat (Vasotec) 0.625 mg Q6HRS IV Last administered on 08/04/16 05:35; Start 07/31/16 at 12:00 Fentanyl Citrate (Fentanyl 2ml Vial) 100 mcg STK-MED ONCE .ROUTE ; Start at 12:49; Stop 07/31/16 at 12:50; Status DC Rocuronium [place] (Zemuron) 50 mg STK-MED ONCE .ROUTE ; Start 07/31/16 at 12:49 ; Stop 07/31/16 at 12:50; Status DC Lidocaine HCl 100 mg 100 mg STK-MED ONCE .ROUTE ; Start 07/31/16 at 13:17; Stop 07/31/16 at 13:18; Status DC Propofol (Diprivan) 20 ml @ As Directed STK-MED ONCE IV ; Start 07/31/16 at 13:17 ; Stop 07/31/16 at 13:18; Status DC Succinylcholine Chloride (Anectine) 200 mg STK-MED ONCE .ROUTE ; Start 07/31/16 at 13:30; Stop 07/31/16 at 13:31; Status DC Dexamethasone Sodium Phosphate (Decadron) 20 mg STK-MED ONCE .ROUTE ; Start 07/31 at 13:42; Stop 07/31/16 at 13:43; Status DC Ondansetron HCl (Zofran) 4 mg STK-MED ONCE .ROUTE ; Start 07/31/16 at 13:42; Stop 07/31/16 at 13:43; Status DC Phenylephrine HCl 1 mg STK-MED ONCE IV ; Start 07/31/16 at 13:47; Stop 07/31/16 at 13:48; Status DC Fentanyl Citrate (Fentanyl 2ml Vial) 100 mcg STK-MED ONCE .ROUTE ; Start at 14:26; Stop 07/31/16 at 14:27; Status DC Sevoflurane (Ultane) 60 ml STK-MED ONCE IH ; Start 07/31/16 at 15:13; Stop at 15:14; Status DC Insulin Aspart (Novolog Vial) 3 unit 1X ONCE SQ ; Start 07/31/16 at 15:45; Stop 07/31/16 at 15:45; Status DC Insulin Aspart (Novolog) 3 units 1X ONCE SQ ; Start 07/31/16 at 15:45; Stop 07/31 at 15:46; Status Cancel Insulin Aspart (Novolog Vial) 100 unit STK-MED ONCE SQ ; Start 07/31/16 at 15:41 ; Stop 07/31/16 at 15:42; Status DC Insulin Aspart (Novolog Vial) 3 unit 1X ONCE SQ ; Start 07/31/16 at 16:00; Stop 07/31/16 at 16:01; Status Cancel Insulin Aspart 3 unit 3 unit 1X ONCE SQ Last administered on 07/31/16 15:57; Start 07/31/16 at 16:00; Stop 07/31/16 at 16:01; Status DC Ceftriaxone Sodium/Sodium Chloride (Rocephin/Iv Sodium Chloride 0.9% 50ml) 50 ml @ 100 mls/hr Q24H IV Last administered on 08/03/16 14:36; Start 08/01/16 at 14:00 Insulin Aspart (Novolog) 0-9 UNITS Q6HRS SQ Last administered on 08/03/16 18: 14; Start 08/01/16 at 12:00 Insulin Detemir (Levemir) 30 units QHS SQ Last administered on 08/03/16 21:22 ; Start 08/01/16 at 21:00 Pantoprazole Sodium 40 mg 40 mg BID IVP Last administered on 08/04/16 09:04; Start 08/01/16 at 21:00 Amino Acids/ Electrolytes 1,000 ml @ 80 mls/hr [id number] IV Last administered on 08/03/16 05:09; Start 08/03/16 at 03:41; Stop 08/03/16 at 17:24; Status DC Amino Acids/ Electrolytes (Clinimix E 2.75%-5% Solution) 2,000 ml @ 80 mls/hr Q24H IV Last administered on 08/03/16 18:07; Start 08/03/16 at 17:24 Active Scripts Active Reported Hydrocodone-Apap 5-325 (Hydrocodone Bit/Acetaminophen) 1 Each Tablet 1 Tab PO Q4HRS PRN Vitals/I & O Vital Sign - Last 24 Hours 08/03/16 08/03/16 08/03/16 08/03/16 12:23 12:24 14:37 14:41 Temp 97.4 97.4 Pulse 65 Resp 20 B/P 141/70 141/70 123/59 Pulse Ox 97 O2 Delivery Nasal Cannula Nasal Cannula O2 Flow Rate 2.0 2.0 08/03/16 08/03/16 08/03/16 08/03/16 15:07 18:09 18:13 19:10 Temp 98.4 98.4 Pulse 73 73 70 Resp 18 B/P 109/57 Pulse Ox 97 O2 Delivery Nasal Cannula O2 Flow Rate 2.0 4.0 08/03/16 08/03/16 08/03/16 08/03/16 20:00 23:21 23:22 23:23 Pulse 75 75 B/P 151/54 151/54 Pulse Ox 97 O2 Delivery Nasal Cannula Nasal Cannula O2 Flow Rate 2.0 4.0 08/03/16 08/03/16 08/04/16 08/04/16 23:31 23:53 03:41 05:34 Temp 97.6 97.6 97.6 97.6 Pulse 63 74 73 Resp 18 18 B/P 151/54 151/54 133/65 Pulse Ox 97 97 O2 Delivery Nasal Cannula Nasal Cannula Nasal Cannula O2 Flow Rate 1.5 1.5 08/04/16 08/04/16 08/04/16 08/04/16 05:35 07:00 08:00 11:00 Temp 97.5 98.3 97.5 98.3 Pulse 73 73 70 Resp 20 16 B/P 133/65 135/55 141/51 Pulse Ox 97 98 O2 Delivery Nasal Cannula Nasal Cannula Nasal Cannula O2 Flow Rate 1.5 2.0 1.5 Intake and Output 08/03/16 08/03/16 08/04/16 15:00 23:00 07:00 Intake Total 100 ml Output Total 600 ml 900 ml Balance -500 ml -900 ml Nutrition Consultation Dietary Evaluation: Recommendations by RD: Increase Calorie Intake Comments: Rec. 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
--- NOTE | 2016-08-04 12:54 | RAD ---
Indication: Short of breath. Technique: Upright portable chest radiograph was obtained. Comparison is from 4 days earlier. Findings: The lungs are clear. The heart is not enlarged and there is no heart failure. There are degenerative changes in the spine. Median sternotomy wires are noted. Leads overlie the patient. Impression: No acute thoracic findings.
--- NOTE | 2016-08-04 13:17 | PDOC ---
Subjective: Subjective: Denies pain. Objective: Objective: Per RN - alert and oriented, passed swallow study, trying dysphagia diet. Vital Signs: Vital Signs Date Time Temp Pulse Resp B/P Pulse Ox O2 Delivery O2 Flow Rate FiO2 08/04/16 11:00 98.3 70 16 141/51 98 Nasal Cannula 1.5 98.3 Labs: Laboratory Tests Test 08/03/16 17:33 08/03/16 21:13 08/03/16 23:42 08/04/16 05:31 Glucose (Fingerstick) 229mg/dL (70-99) 198mg/dL (70-99) 175mg/dL (70-99) 152mg/dL (70-99) Test 08/04/16 12:14 Glucose (Fingerstick) 158mg/dL (70-99) PE: GEN: NAD, eating sherbet LUNGS: CTAB HEART: RRR ABD: S/ND/NT NEURO/PSYCH: improved - awake, answers some questions A/P: Severe PAD/LLE ischemia w/p AKA 07/31 Encephalopathy Transaminitis - improved (last checked 07/31) -hepatic infarct on CT 07/28 -- Improving. KANCHAN BALLARD Aug 04, 2016 13:17
[2016-08-04] MEDS: CEFTRIAXONE SODIUM 1 GM in IV NORMAL SALINE 50ML 50 ML IV SCH (14:41)
[2016-08-04] MEDS: MORPHINE SULFATE 2 MG/ML DISP.SYRIN. IV PRN (14:44)
[2016-08-04 15:00] VITALS: BP 126/56
[2016-08-04] MEDS: CARVEDILOL 6.25 MG TABLET PO SCH (17:38)
[2016-08-04] MEDS: AA 2.75%/CALCIUM/LYTES/D5W 2,000 ML IV SCH (17:38)
[2016-08-04 19:32] VITALS: BP 100/47
[2016-08-04] MEDS ORDERED: LISINOPRIL 5 MG TABLET. PO SCH (21:00)
[2016-08-04] MEDS: INSULIN DETEMIR 300 UNITS/3 ML INSULN.PEN. SQ SCH (21:13)
[2016-08-04 23:27] VITALS: BP 107/59
[2016-08-05 03:02] VITALS: BP 116/55
[2016-08-05 05:55] LABS: BASO # 0.1 x10^3/uL (0.0-0.2); BASO % 1 % (0-3); EOS % 1 % (0-3); HEMOGLOBIN 10.6 g/dL (13.0-17.5); LYMPH # 1.6 x10^3/uL (1.0-4.8); LYMPH % 8 % (24-48); MEAN CORPUSCULAR HEMOGLOBIN 28 pg (25-35); MEAN CORPUSCULAR HGB CONC 32 g/dL (31-37); MEAN CORPUSCULAR VOLUME 87 fL (79-100); MONO % 12 % (0-9); NEUT % 79 % (31-73); PLATELET COUNT 265 x10^3/uL (140-400); RED BLOOD COUNT 3.78 x10^6/uL (4.30-5.70); RED CELL DISTRIBUTION WIDTH 15.4 % (11.5-14.5); WHITE BLOOD COUNT 19.6 x10^3/uL (4.0-11.0)
[2016-08-05 06:13] LABS: CALCIUM 8.6 mg/dL (8.5-10.1); GFR 74.5
[2016-08-05 07:00] VITALS: BP 125/67
[2016-08-05] MEDS ORDERED: ASPIRIN ENTERIC COATED 81 MG TABLET.DR. PO SCH (08:00)
--- NOTE | 2016-08-05 08:06 | PDOC ---
Provider Note Provider Note AF VSS awake and alert left groin and AKA incision intact with no drainage/erythema A/P s/p left AKA - continue medical management and follow up in 3 weeks for staple removal BRANDEN ARANDA MD Aug 05, 2016 08:06
[2016-08-05] MEDS: CARVEDILOL 6.25 MG TABLET PO SCH (09:15)
[2016-08-05] MEDS: PANTOPRAZOLE IV PUSH 40 MG VIAL. IVP SCH ×2 (09:15→20:34)
[2016-08-05] MEDS: METRONIDAZOLE 500mg PREMIX 100 ML IV SCH ×2 (09:16→22:30)
[2016-08-05] MEDS: INSULIN ASPART 300 UNITS/3 ML INSULN.PEN SQ SCH ×3 (09:27→17:00)
[2016-08-05 11:17] LABS: ANISOCYTOSIS SLIGHT; OVALOCYTES FEW; PLT ESTIMATE ADEQUATE (ADEQUATE); POLYCHROMASIA SLIGHT
[2016-08-05 11:37] VITALS: BP 166/81
--- NOTE | 2016-08-05 12:26 | PDOC ---
G I PROGRESS NOTE Subjective Somnolent; did not awake with exam. Apparently taking well po, but emesis this morning after breakfast. Objective Per staff, NPO at present. Physical Exam Lungs clear anteriorly. RRR Abdomen soft, not distended and not apparently tender though did not awaken with exam. Review of Relevant I have reviewed the following items chris (where applicable) has been applied. Labs Laboratory Tests Test 08/03/16 17:33 08/03/16 21:13 08/03/16 23:42 08/04/16 04:30 Glucose (Fingerstick) 229mg/dL (70-99) 198mg/dL (70-99) 175mg/dL (70-99) White Blood Count 18.3x10^3/uL (4.0-11.0) Red Blood Count 3.68x10^6/uL (4.30-5.70) Hemoglobin 10.2g/dL (13.0-17.5) Hematocrit 32.8% (39.0-53.0) Mean Corpuscular Volume 89fL (79-100) Mean Corpuscular Hemoglobin 28pg (25-35) Mean Corpuscular Hemoglobin Concent 31g/dL (31-37) Red Cell Distribution Width 15.3% (11.5-14.5) Platelet Count 232x10^3/uL (140-400) Neutrophils (%) (Auto) 76% (31-73) Lymphocytes (%) (Auto) 10% (24-48) Monocytes (%) (Auto) 13% (0-9) Eosinophils (%) (Auto) 1% (0-3) Basophils (%) (Auto) 0% (0-3) Neutrophils # (Auto) 14.0x10^3uL (1.8-7.7) Lymphocytes # (Auto) 1.8x10^3/uL (1.0-4.8) Monocytes # (Auto) 2.3x10^3/uL (0.0-1.1) Eosinophils # (Auto) 0.2x10^3/uL (0.0-0.7) Basophils # (Auto) 0.0x10^3/uL (0.0-0.2) Sodium Level 143mmol/L (136-145) Potassium Level 3.9mmol/L (3.5-5.1) Chloride Level 107mmol/L (98-107) Carbon Dioxide Level 31mmol/L (21-32) Anion Gap 5 (6-14) Blood Urea Nitrogen 26mg/dL (8-26) Creatinine 0.9mg/dL (0.7-1.3) Estimated GFR (Cockcroft-Gault) 84.2 Glucose Level 182mg/dL (70-99) Calcium Level 8.6mg/dL (8.5-10.1) CF-Cfg-V-Type Natriuretic Peptide 2457pg/mL (0-124) Test 08/04/16 05:31 08/04/16 12:14 08/04/16 17:03 08/04/16 20:44 Glucose (Fingerstick) 152mg/dL (70-99) 158mg/dL (70-99) 388mg/dL (70-99) 343mg/dL (70-99) Test 08/05/16 05:30 08/05/16 07:34 08/05/16 10:47 White Blood Count 19.6x10^3/uL (4.0-11.0) Red Blood Count 3.78x10^6/uL (4.30-5.70) Hemoglobin 10.6g/dL (13.0-17.5) Hematocrit 33.0% (39.0-53.0) Mean Corpuscular Volume 87fL (79-100) Mean Corpuscular Hemoglobin 28pg (25-35) Mean Corpuscular Hemoglobin Concent 32g/dL (31-37) Red Cell Distribution Width 15.4% (11.5-14.5) Platelet Count 265x10^3/uL (140-400) Neutrophils (%) (Auto) 79% (31-73) Lymphocytes (%) (Auto) 8% (24-48) Monocytes (%) (Auto) 12% (0-9) Eosinophils (%) (Auto) 1% (0-3) Basophils (%) (Auto) 1% (0-3) Neutrophils # (Auto) 15.4x10^3uL (1.8-7.7) Lymphocytes # (Auto) 1.6x10^3/uL (1.0-4.8) Monocytes # (Auto) 2.3x10^3/uL (0.0-1.1) Eosinophils # (Auto) 0.2x10^3/uL (0.0-0.7) Basophils # (Auto) 0.1x10^3/uL (0.0-0.2) Segmented Neutrophils % 84% (35-66) Band Neutrophils % 1% (0-9) Lymphocytes % 6% (24-48) Monocytes % 9% (0-10) Platelet Estimate Adequate (ADEQUATE) Polychromasia Slight Anisocytosis Slight Ovalocytes Few Sodium Level 141mmol/L (136-145) Potassium Level 4.0mmol/L (3.5-5.1) Chloride Level 106mmol/L (98-107) Carbon Dioxide Level 28mmol/L (21-32) Anion Gap 7 (6-14) Blood Urea Nitrogen 28mg/dL (8-26) Creatinine 1.0mg/dL (0.7-1.3) Estimated GFR (Cockcroft-Gault) 74.5 Glucose Level 199mg/dL (70-99) Calcium Level 8.6mg/dL (8.5-10.1) Glucose (Fingerstick) 172mg/dL (70-99) 138mg/dL (70-99) Laboratory Tests Test 08/04/16 17:03 08/04/16 20:44 08/05/16 05:30 08/05/16 07:34 Glucose (Fingerstick) 388mg/dL (70-99) 343mg/dL (70-99) 172mg/dL (70-99) White Blood Count 19.6x10^3/uL (4.0-11.0) Red Blood Count 3.78x10^6/uL (4.30-5.70) Hemoglobin 10.6g/dL (13.0-17.5) Hematocrit 33.0% (39.0-53.0) Mean Corpuscular Volume 87fL (79-100) Mean Corpuscular Hemoglobin 28pg (25-35) Mean Corpuscular Hemoglobin Concent 32g/dL (31-37) Red Cell Distribution Width 15.4% (11.5-14.5) Platelet Count 265x10^3/uL (140-400) Neutrophils (%) (Auto) 79% (31-73) Lymphocytes (%) (Auto) 8% (24-48) Monocytes (%) (Auto) 12% (0-9) Eosinophils (%) (Auto) 1% (0-3) Basophils (%) (Auto) 1% (0-3) Neutrophils # (Auto) 15.4x10^3uL (1.8-7.7) Lymphocytes # (Auto) 1.6x10^3/uL (1.0-4.8) Monocytes # (Auto) 2.3x10^3/uL (0.0-1.1) Eosinophils # (Auto) 0.2x10^3/uL (0.0-0.7) Basophils # (Auto) 0.1x10^3/uL (0.0-0.2) Segmented Neutrophils % 84% (35-66) Band Neutrophils % 1% (0-9) Lymphocytes % 6% (24-48) Monocytes % 9% (0-10) Platelet Estimate Adequate (ADEQUATE) Polychromasia Slight Anisocytosis Slight Ovalocytes Few Sodium Level 141mmol/L (136-145) Potassium Level 4.0mmol/L (3.5-5.1) Chloride Level 106mmol/L (98-107) Carbon Dioxide Level 28mmol/L (21-32) Anion Gap 7 (6-14) Blood Urea Nitrogen 28mg/dL (8-26) Creatinine 1.0mg/dL (0.7-1.3) Estimated GFR (Cockcroft-Gault) 74.5 Glucose Level 199mg/dL (70-99) Calcium Level 8.6mg/dL (8.5-10.1) Test 08/05/16 10:47 Glucose (Fingerstick) 138mg/dL (70-99) Microbiology 07/28/16 Blood Culture - Final, Complete NO GROWTH AFTER 5 DAYS Medications Current Medications Naloxone HCl 0.4 mg 0.4 mg 1X ONCE IV Last administered on 07/28/16 21:30; Start 07/28/16 at 21:30; Stop 07/28/16 at 21:31; Status DC Sodium Chloride 1,000 ml @ 1,000 mls/hr 1X ONCE IV Last administered on 21:30; Start 07/28/16 at 21:30; Stop 07/28/16 at 22:29; Status DC Ceftriaxone Sodium 1 gm/ Sodium Chloride 50 ml @ 100 mls/hr Q24H IV Last administered on 07/30/16 21:39; Start 07/29/16 at 21:00; Stop 07/31/16 at 17:33; Status DC Ceftriaxone Sodium 50 ml @ 100 mls/hr 1X ONCE IV Last administered on 21:35; Start 07/28/16 at 22:00; Stop 07/28/16 at 22:29; Status DC Heparin Sodium/ Dextrose 500 ml @ 0 mls/hr CONT PRN IV SEE I/O RECORD Last administered on 07/29/16 21:46; Start 07/28/16 at 22:00; Stop 07/30/16 at 07:59; Status DC Heparin Sodium (Porcine) 2,200 unit PRN Q6HRS PRN IV FOR UFH LEVEL LESS THAN 0.2 Last administered on 07/28/16 23:14; Start 07/28/16 at 22:00; Stop 07/30/16 at 08:00; Status DC Ondansetron HCl 4 mg 4 mg PRN Q8HRS PRN IV NAUSEA/VOMITING; Start 07/28/16 at 22 :15; Stop 07/29/16 at 22:14; Status DC Sodium Chloride 1,000 ml @ 125 mls/hr Q8H IV Last administered on 07/29/16 08: 16; Start 07/28/16 at 22:01; Stop 07/29/16 at 13:04; Status DC Metronidazole (FLAGYL 500Mmg PREMIX) 100 ml @ 100 mls/hr Q12HR IV Last administered on 08/05/16 09:16; Start 07/28/16 at 22:30 Hydralazine HCl (Apresoline) 10 mg PRN Q4HRS PRN IVP ELEVATED BP, SEE COMMENTS ; Start 07/29/16 at 03:00 Insulin Aspart (Novolog) 0-9 UNITS TIDWMEALS SQ Last administered on 07/31/16 17:51; Start 07/29/16 at 08:00; Stop 08/01/16 at 08:36; Status DC Dextrose 12.5 gm PRN Q15MIN PRN IV SEE COMMENTS; Start 07/29/16 at 03:00 Insulin Aspart (Novolog) 8 units 1X ONCE SQ Last administered on 07/29/16 08: 20; Start 07/29/16 at 08:30; Stop 07/29/16 at 08:31; Status DC Morphine Sulfate 2 mg PRN Q2HR PRN IV PAIN Last administered on 08/04/16 14:44 ; Start 07/29/16 at 09:00 Aspirin (Aspirin) 300 mg 1X ONCE CO Last administered on 07/29/16 13:17; Start 07/29/16 at 10:30; Stop 07/29/16 at 10:31; Status DC Heparin Sodium (Porcine) 1,800 unit PRN Q6HRS PRN IV FOR UFH LEVEL LESS THAN 0.2 Last administered on 07/29/16 10:35; Start 07/29/16 at 10:15; Stop 07/30/16 at 08:00; Status DC Metoprolol Tartrate (Lopressor) 5 mg Q6HRS IVP Last administered on 08/04/16 05:34; Start 07/29/16 at 13:00; Stop 08/04/16 at 14:42; Status DC Aspirin 150 mg 150 mg DAILY CO Last administered on 08/04/16 09:03; Start 07/30 at 09:00; Stop 08/04/16 at 14:42; Status DC Sodium Chloride 1,000 ml @ 60 mls/hr [id number] IV Last administered on 07/29/16 13:25; Start 07/29/16 at 13:30; Stop 07/29/16 at 13:31; Status DC Heparin Sodium (Porcine) 5000 unit/Sodium Chloride 505 ml @ 505 mls/hr 1X PERIOP ONCE IRR Last administered on 07/29/16 15:26; Start 07/29/16 at 14:00; Stop 07/29/16 at 14:59; Status DC Cefazolin Sodium/ Sodium Chloride (Ancef/Iv Sodium Chloride 0.9% 500ml Bag) 500 ml @ 500 mls/hr 1X PERIOP ONCE IRR Last administered on 07/29/16 15:26; Start 07/29/16 at 14:00; Stop 07/29/16 at 14:59; Status DC Gelatin (Gelfoam Size 12-7mm) 1 each STK-MED ONCE .ROUTE ; Start 07/29/16 at 13: 54; Stop 07/29/16 at 13:55; Status DC Cellulose 1 each STK-MED ONCE .ROUTE ; Start 07/29/16 at 13:54; Stop 07/29/16 at 13:55; Status DC Iohexol (Omnipaque 300 Mg/ml) 50 ml STK-MED ONCE .ROUTE ; Start 07/29/16 at 13:54 ; Stop 07/29/16 at 13:55; Status DC Gelatin (Gelfoam Size 100) 1 each STK-MED ONCE .ROUTE ; Start 07/29/16 at 13:54 ; Stop 07/29/16 at 13:55; Status DC Papaverine HCl 60 mg STK-MED ONCE .ROUTE ; Start 07/29/16 at 13:54; Stop 07/29/16 at 13:55; Status DC Thrombin 20,000 unit STK-MED ONCE TP ; Start 07/29/16 at 13:54; Stop 07/29/16 at 13:55; Status DC Midazolam HCl (Versed) 2 mg STK-MED ONCE .ROUTE ; Start 07/29/16 at 14:14; Stop 07/29/16 at 14:15; Status DC Fentanyl Citrate (Fentanyl 5ml Vial) 250 mcg STK-MED ONCE .ROUTE ; Start at 14:14; Stop 07/29/16 at 14:15; Status DC Rocuronium Deepwater 50 mg 50 mg STK-MED ONCE .ROUTE ; Start 07/29/16 at 14:14; Stop 07/29/16 at 14:15; Status DC Propofol (Diprivan) 20 ml @ As Directed STK-MED ONCE IV ; Start 07/29/16 at 14:14 ; Stop 07/29/16 at 14:15; Status DC Dexamethasone Sodium Phosphate (Decadron) 20 mg STK-MED ONCE .ROUTE ; Start 07/29 at 14:14; Stop 07/29/16 at 14:15; Status DC Ondansetron HCl (Zofran) 4 mg STK-MED ONCE .ROUTE ; Start 07/29/16 at 14:14; Stop 07/29/16 at 14:15; Status DC Lidocaine HCl 100 mg STK-MED ONCE .ROUTE ; Start 07/29/16 at 14:15; Stop 07/29/16 at 14:16; Status DC Succinylcholine Chloride (Anectine) 200 mg STK-MED ONCE .ROUTE ; Start 07/29/16 at 14:43; Stop 07/29/16 at 14:44; Status DC Phenylephrine HCl 1 mg STK-MED ONCE IV ; Start 07/29/16 at 15:01; Stop 07/29/16 at 15:02; Status DC Ephedrine Sulfate 50 mg 50 mg STK-MED ONCE .ROUTE ; Start 07/29/16 at 15:28; Stop 07/29/16 at 15:29; Status DC Insulin Human Regular/Sodium Chloride (Novolin R Vial/ Iv Normal Saline 150ml) 151.5 ml @ 7.29 mls/hr 1X ONCE IV ; Start 07/29/16 at 16:45; Stop 07/30/16 at 12 :52; Status DC Info (Anti-Coagulation Monitoring By Pharmacy) 1 each PRN DAILY PRN MC SEE COMMENTS Last administered on 07/29/16t 17:00; Start 07/29/16 at 17:00; Stop at 12:51; Status DC Heparin Sodium (Porcine) 10,000 unit STK-MED ONCE .ROUTE ; Start 07/29/16 at 17: 02; Stop 07/29/16 at 17:03; Status DC Neostigmine Methylsulfate 5 mg STK-MED ONCE .ROUTE ; Start 07/29/16 at 20:52; Stop 07/29/16 at 20:53; Status DC Glycopyrrolate (Robinul) 1 mg STK-MED ONCE .ROUTE ; Start 07/29/16 at 20:52; Stop 07/29/16 at 20:53; Status DC Fentanyl Citrate (Fentanyl 2ml Vial) 50 mcg PRN Q5MIN PRN IV Acute Pain; Start 07/29/16 at 21:15; Stop 07/30/16 at 21:14; Status DC Morphine Sulfate 4 mg PRN Q10MIN PRN IV Moderate Pain; Start 07/29/16 at 21:15; Stop 07/30/16 at 21:14; Status DC Hydromorphone HCl (Dilaudid) 0.4 mg PRN Q10MIN PRN IV Moderate to severe pain; Start 07/29/16 at 21:15; Stop 07/30/16 at 21:14; Status DC Meperidine HCl (Demerol) 12.5 mg PRN Q5MIN PRN IV SHIVERING; Start 07/29/16 at 21:15; Stop 07/30/16 at 00:00; Status DC Prochlorperazine Edisylate (Compazine) 5 mg PRN Q6HRS PRN IV Nausea/Vomiting, 1st Choice; Start 07/29/16 at 21:15; Stop 07/30/16 at 21:14; Status DC Diphenhydramine HCl 12.5 mg 12.5 mg PRN Q2HR PRN IV ITCHING; Start 07/29/16 at 21:15; Stop 07/30/16 at 21:14; Status DC Sodium Chloride (Iv Sodium Chloride 0.45%) 1,000 ml @ 100 mls/hr Q10H IV Last administered on 07/29/16 21:59; Start 07/29/16 at 22:00; Stop 07/30/16 at 09:41; Status DC Cefazolin Sodium/ Dextrose (Ancef 2gm Premix) 2 gm STK-MED ONCE IV ; Start at 17:35; Stop 07/30/16 at 08:53; Status DC Pantoprazole Sodium 40 mg 40 mg [id number] IVP Last administered on 08/01/16 17:18 ; Start 07/30/16 at 18:00; Stop 08/01/16 at 20:26; Status DC Sodium Chloride 1,000 ml @ 60 mls/hr [id number] IV Last administered on 07/30/16 09:47; Start 07/30/16 at 09:45; Stop 07/30/16 at 12:47; Status DC Cefazolin Sodium/ Sodium Chloride (Ancef/Iv Sodium Chloride 0.9% 500ml Bag) 500 ml @ 500 mls/hr 1X PERIOP ONCE IRR Last administered on 07/31/16 13:47; Start 07/31/16 at 06:00; Stop 07/31/16 at 06:59; Status DC Insulin Detemir (Levemir) 15 units [id number] SQ Last administered on 07/30/16 12: 57; Start 07/30/16 at 13:00; Stop 08/01/16 at 08:36; Status DC Insulin Aspart 12 units 12 units 1X ONCE SQ ; Start 07/30/16 at 12:45; Stop 07/30 at 12:47; Status DC Amino Acids/ Electrolytes/ Dextrose (Clinimix E 4.25%-5% Solution) 1,000 ml @ 80 mls/hr [id number] IV Last administered on 08/02/16 17:50; Start 07/30/16 at 13: 00; Stop 08/03/16 at 03:41; Status DC Ondansetron HCl (Zofran) 4 mg PRN Q6HRS PRN IV Nausea; Start 07/31/16 at 07:00; Stop 08/01/16 at 06:59; Status DC Fentanyl Citrate (Fentanyl 2ml Vial) 25 mcg PRN Q5MIN PRN IV MILD PAIN; Start 07/31/16 at 07:00; Stop 08/01/16 at 06:59; Status DC Fentanyl Citrate (Fentanyl 2ml Vial) 50 mcg PRN Q5MIN PRN IV MODERATE PAIN; Start 07/31/16 at 07:00; Stop 08/01/16 at 06:59; Status DC Morphine Sulfate 1 mg 1 mg PRN Q10MIN PRN IV SEVERE PAIN; Start 07/31/16 at 07: 00; Stop 08/01/16 at 06:59; Status DC Lactated Ringer's (Iv Lactated Ringers) 1,000 ml @ 30 mls/hr Q24H IV Last administered on 07/31/16 15:53; Start 07/31/16 at 07:00; Stop 07/31/16 at 18:59; Status DC Lidocaine HCl 2 ml 1X PRN PRN ID IV START; Start 07/31/16 at 07:00; Stop at 06:59; Status DC Hydromorphone HCl (Dilaudid) 0.5 mg PRN Q10MIN PRN IV SEVERE PAIN, Second choice; Start 07/31/16 at 07:00; Stop 08/01/16 at 06:59; Status DC Prochlorperazine Edisylate (Compazine) 5 mg PACU PRN PRN IV NAUSEA; Start at 07:00; Stop 08/01/16 at 06:59; Status DC Insulin Detemir (Levemir) 10 units QHS SQ Last administered on 07/31/16 21:49; Start 07/31/16 at 21:00; Stop 08/01/16 at 08:36; Status DC Enalaprilat (Vasotec) 1.25 mg Q6HRS IV ; Start 07/31/16 at 12:00; Stop 07/31/16 at 12:00; Status DC Enalaprilat (Vasotec) 0.625 mg Q6HRS IV Last administered on 08/04/16t 05:35; Start 07/31/16 at 12:00; Stop 08/04/16 at 14:42; Status DC Fentanyl Citrate (Fentanyl 2ml Vial) 100 mcg STK-MED ONCE .ROUTE ; Start at 12:49; Stop 07/31/16 at 12:50; Status DC Rocuronium Deepwater (Zemuron) 50 mg STK-MED ONCE .ROUTE ; Start 07/31/16 at 12:49 ; Stop 07/31/16 at 12:50; Status DC Lidocaine HCl 100 mg 100 mg STK-MED ONCE .ROUTE ; Start 07/31/16 at 13:17; Stop 07/31/16 at 13:18; Status DC Propofol (Diprivan) 20 ml @ As Directed STK-MED ONCE IV ; Start 07/31/16 at 13:17 ; Stop 07/31/16 at 13:18; Status DC Succinylcholine Chloride (Anectine) 200 mg STK-MED ONCE .ROUTE ; Start 07/31/16 at 13:30; Stop 07/31/16 at 13:31; Status DC Dexamethasone Sodium Phosphate (Decadron) 20 mg STK-MED ONCE .ROUTE ; Start 07/31 at 13:42; Stop 07/31/16 at 13:43; Status DC Ondansetron HCl (Zofran) 4 mg STK-MED ONCE .ROUTE ; Start 07/31/16 at 13:42; Stop 07/31/16 at 13:43; Status DC Phenylephrine HCl 1 mg STK-MED ONCE IV ; Start 07/31/16 at 13:47; Stop 07/31/16 at 13:48; Status DC Fentanyl Citrate (Fentanyl 2ml Vial) 100 mcg STK-MED ONCE .ROUTE ; Start at 14:26; Stop 07/31/16 at 14:27; Status DC Sevoflurane (Ultane) 60 ml STK-MED ONCE IH ; Start 07/31/16 at 15:13; Stop at 15:14; Status DC Insulin Aspart (Novolog Vial) 3 unit 1X ONCE SQ ; Start 07/31/16 at 15:45; Stop 07/31/16 at 15:45; Status DC Insulin Aspart (Novolog) 3 units 1X ONCE SQ ; Start 07/31/16 at 15:45; Stop 07/31 at 15:46; Status Cancel Insulin Aspart (Novolog Vial) 100 unit STK-MED ONCE SQ ; Start 07/31/16 at 15:41 ; Stop 07/31/16 at 15:42; Status DC Insulin Aspart (Novolog Vial) 3 unit 1X ONCE SQ ; Start 07/31/16 at 16:00; Stop 07/31/16 at 16:01; Status Cancel Insulin Aspart 3 unit 3 unit 1X ONCE SQ Last administered on 07/31/16 15:57; Start 07/31/16 at 16:00; Stop 07/31/16 at 16:01; Status DC Ceftriaxone Sodium/Sodium Chloride (Rocephin/Iv Sodium Chloride 0.9% 50ml) 50 ml @ 100 mls/hr Q24H IV Last administered on 08/04/16 14:41; Start 08/01/16 at 14:00 Insulin Aspart (Novolog) 0-9 UNITS Q6HRS SQ Last administered on 08/03/16 18: 14; Start 08/01/16 at 12:00; Stop 08/04/16 at 12:15; Status DC Insulin Detemir (Levemir) 30 units QHS SQ Last administered on 08/04/16 21:13 ; Start 08/01/16 at 21:00 Pantoprazole Sodium 40 mg 40 mg BID IVP Last administered on 08/05/16 09:15; Start 08/01/16 at 21:00 Amino Acids/ Electrolytes 1,000 ml @ 80 mls/hr [id number] IV Last administered on 08/03/16 05:09; Start 08/03/16 at 03:41; Stop 08/03/16 at 17:24; Status DC Amino Acids/ Electrolytes (Clinimix E 2.75%-5% Solution) 2,000 ml @ 80 mls/hr Q24H IV Last administered on 08/04/16 17:38; Start 08/03/16 at 17:24 Insulin Aspart (Novolog) 0-9 UNITS TIDWMEALS SQ Last administered on 08/05/16 09:27; Start 08/04/16 at 12:11 Aspirin (Ecotrin) 81 mg [id number] PO Last administered on 08/05/16 09:14; Start 08/05/16 at 08:00 Carvedilol (Coreg) 6.25 mg BIDWMEALS PO Last administered on 08/05/16 09:15; Start 08/04/16 at 17:00 Lisinopril (Prinivil) 5 mg HS PO Last administered on 08/04/16 21:06; Start at 21:00 Active Scripts Active Reported Hydrocodone-Apap 5-325 (Hydrocodone Bit/Acetaminophen) 1 Each Tablet 1 Tab PO Q4HRS PRN Vitals/I & O Vital Sign - Last 24 Hours 08/04/16 08/04/16 08/04/16 08/04/16 14:44 15:00 15:14 17:38 Temp 98.6 98.6 Pulse 77 72 Resp 18 B/P 126/56 Pulse Ox 96 O2 Delivery Nasal Cannula Nasal Cannula Nasal Cannula O2 Flow Rate 2.0 1.5 2.0 08/04/16 08/04/16 08/04/16 08/04/16 19:32 20:00 21:06 23:27 Temp 98.5 99.5 98.5 99.5 Pulse 84 84 75 Resp 18 18 B/P 100/47 100/47 107/59 Pulse Ox 94 94 O2 Delivery Room Air Room Air Room Air 08/05/16 08/05/16 08/05/16 08/05/16 03:02 07:00 09:15 11:37 Temp 99.5 98.1 97.8 99.5 98.1 97.8 Pulse 80 77 77 82 Resp 18 18 19 B/P 116/55 125/67 125/67 166/81 Pulse Ox 94 95 94 O2 Delivery Room Air Room Air Room Air Intake and Output 08/04/16 08/04/16 08/05/16 15:00 23:00 07:00 Intake Total 360 ml 1013 ml Output Total 850 ml 725 ml Balance -490 ml 288 ml Problem List Problems Medical Problems: (1) Altered mental status Status: Acute (2) Dehydration Status: Acute (3) NSTEMI (non-ST elevated myocardial infarction) Status: Acute Assessment Emesis. Hopefully a solitary occurrence. Plan of Care: Continue current Tx, Mgmt Plan of Care Note Try feeding AM? If recurring issues with vomiting, further evaluation. JETHRO SEE MD Aug 05, 2016 12:26
--- NOTE | 2016-08-05 12:51 | PDOC ---
PROGRESS NOTES Chief Complaint Chief Complaint A/P s/p LEFt AKA () for Severe PVD Acute metabolic encephalopathy - multifactorial, metabolic, hypoxic, worsening. Dm 1 with Hyperglycemia. NSTEMI, med management now Vasomotor nephropathy, Diabetes with severe chronic atherosclerosis, multilevel. Cardiomyopathy Chronic systolic HF PAD Leucocytosis Plan CXR no infection encephalopathy worsening, repeat CT head if symptoms persisted. iv diuresis. BP meds to IV. NPO PPN SSI AC and HS for hyperglycemia avoid narcotics, labs reviewed, monitor WBC consult oncology continue current abx. Follow vascular recommendations. no family available for answering question, no baseline status. History of Present Illness History of Present Illness somnolent. not able to answer questions. Vitals Vitals Vital Signs Date Time Temp Pulse Resp B/P Pulse Ox O2 Delivery O2 Flow Rate FiO2 08/05/16 11:37 97.8 82 19 166/81 94 Room Air 97.8 08/04/16 15:14 2.0 Physical Exam General: Alert, No acute distress, Other (somnalent. ) Heart: Regular rate, Normal S1, Normal S2, No murmurs, Other (2/6 systolic murmur to LLS border) Lungs: Clear Abdomen: Normal bowel sounds, Soft, No tenderness Extremities: Other Skin: No breakdown, Other Labs LABS Laboratory Tests Test 08/04/16 17:03 08/04/16 20:44 08/05/16 05:30 08/05/16 07:34 Glucose (Fingerstick) 388mg/dL (70-99) 343mg/dL (70-99) 172mg/dL (70-99) White Blood Count 19.6x10^3/uL (4.0-11.0) Red Blood Count 3.78x10^6/uL (4.30-5.70) Hemoglobin 10.6g/dL (13.0-17.5) Hematocrit 33.0% (39.0-53.0) Mean Corpuscular Volume 87fL (79-100) Mean Corpuscular Hemoglobin 28pg (25-35) Mean Corpuscular Hemoglobin Concent 32g/dL (31-37) Red Cell Distribution Width 15.4% (11.5-14.5) Platelet Count 265x10^3/uL (140-400) Neutrophils (%) (Auto) 79% (31-73) Lymphocytes (%) (Auto) 8% (24-48) Monocytes (%) (Auto) 12% (0-9) Eosinophils (%) (Auto) 1% (0-3) Basophils (%) (Auto) 1% (0-3) Neutrophils # (Auto) 15.4x10^3uL (1.8-7.7) Lymphocytes # (Auto) 1.6x10^3/uL (1.0-4.8) Monocytes # (Auto) 2.3x10^3/uL (0.0-1.1) Eosinophils # (Auto) 0.2x10^3/uL (0.0-0.7) Basophils # (Auto) 0.1x10^3/uL (0.0-0.2) Segmented Neutrophils % 84% (35-66) Band Neutrophils % 1% (0-9) Lymphocytes % 6% (24-48) Monocytes % 9% (0-10) Platelet Estimate Adequate (ADEQUATE) Polychromasia Slight Anisocytosis Slight Ovalocytes Few Sodium Level 141mmol/L (136-145) Potassium Level 4.0mmol/L (3.5-5.1) Chloride Level 106mmol/L (98-107) Carbon Dioxide Level 28mmol/L (21-32) Anion Gap 7 (6-14) Blood Urea Nitrogen 28mg/dL (8-26) Creatinine 1.0mg/dL (0.7-1.3) Estimated GFR (Cockcroft-Gault) 74.5 Glucose Level 199mg/dL (70-99) Calcium Level 8.6mg/dL (8.5-10.1) Test 08/05/16 10:47 Glucose (Fingerstick) 138mg/dL (70-99) Assessment and Plan Assessmemt and Plan Problems Medical Problems: (1) Altered mental status Status: Acute (2) Dehydration Status: Acute (3) NSTEMI (non-ST elevated myocardial infarction) Status: Acute Problems: Comment Review of Relevant I have reviewed the following items chris (where applicable) has been applied. Labs Laboratory Tests Test 08/03/16 17:33 08/03/16 21:13 08/03/16 23:42 08/04/16 04:30 Glucose (Fingerstick) 229mg/dL (70-99) 198mg/dL (70-99) 175mg/dL (70-99) White Blood Count 18.3x10^3/uL (4.0-11.0) Red Blood Count 3.68x10^6/uL (4.30-5.70) Hemoglobin 10.2g/dL (13.0-17.5) Hematocrit 32.8% (39.0-53.0) Mean Corpuscular Volume 89fL (79-100) Mean Corpuscular Hemoglobin 28pg (25-35) Mean Corpuscular Hemoglobin Concent 31g/dL (31-37) Red Cell Distribution Width 15.3% (11.5-14.5) Platelet Count 232x10^3/uL (140-400) Neutrophils (%) (Auto) 76% (31-73) Lymphocytes (%) (Auto) 10% (24-48) Monocytes (%) (Auto) 13% (0-9) Eosinophils (%) (Auto) 1% (0-3) Basophils (%) (Auto) 0% (0-3) Neutrophils # (Auto) 14.0x10^3uL (1.8-7.7) Lymphocytes # (Auto) 1.8x10^3/uL (1.0-4.8) Monocytes # (Auto) 2.3x10^3/uL (0.0-1.1) Eosinophils # (Auto) 0.2x10^3/uL (0.0-0.7) Basophils # (Auto) 0.0x10^3/uL (0.0-0.2) Sodium Level 143mmol/L (136-145) Potassium Level 3.9mmol/L (3.5-5.1) Chloride Level 107mmol/L (98-107) Carbon Dioxide Level 31mmol/L (21-32) Anion Gap 5 (6-14) Blood Urea Nitrogen 26mg/dL (8-26) Creatinine 0.9mg/dL (0.7-1.3) Estimated GFR (Cockcroft-Gault) 84.2 Glucose Level 182mg/dL (70-99) Calcium Level 8.6mg/dL (8.5-10.1) SD-Qtx-Q-Type Natriuretic Peptide 2457pg/mL (0-124) Test 08/04/16 05:31 3/13/17 12:14 08/04/16 17:03 08/04/16 20:44 Glucose (Fingerstick) 152mg/dL (70-99) 158mg/dL (70-99) 388mg/dL (70-99) 343mg/dL (70-99) Test 08/05/16 05:30 08/05/16 07:34 08/05/16 10:47 White Blood Count 19.6x10^3/uL (4.0-11.0) Red Blood Count 3.78x10^6/uL (4.30-5.70) Hemoglobin 10.6g/dL (13.0-17.5) Hematocrit 33.0% (39.0-53.0) Mean Corpuscular Volume 87fL (79-100) Mean Corpuscular Hemoglobin 28pg (25-35) Mean Corpuscular Hemoglobin Concent 32g/dL (31-37) Red Cell Distribution Width 15.4% (11.5-14.5) Platelet Count 265x10^3/uL (140-400) Neutrophils (%) (Auto) 79% (31-73) Lymphocytes (%) (Auto) 8% (24-48) Monocytes (%) (Auto) 12% (0-9) Eosinophils (%) (Auto) 1% (0-3) Basophils (%) (Auto) 1% (0-3) Neutrophils # (Auto) 15.4x10^3uL (1.8-7.7) Lymphocytes # (Auto) 1.6x10^3/uL (1.0-4.8) Monocytes # (Auto) 2.3x10^3/uL (0.0-1.1) Eosinophils # (Auto) 0.2x10^3/uL (0.0-0.7) Basophils # (Auto) 0.1x10^3/uL (0.0-0.2) Segmented Neutrophils % 84% (35-66) Band Neutrophils % 1% (0-9) Lymphocytes % 6% (24-48) Monocytes % 9% (0-10) Platelet Estimate Adequate (ADEQUATE) Polychromasia Slight Anisocytosis Slight Ovalocytes Few Sodium Level 141mmol/L (136-145) Potassium Level 4.0mmol/L (3.5-5.1) Chloride Level 106mmol/L (98-107) Carbon Dioxide Level 28mmol/L (21-32) Anion Gap 7 (6-14) Blood Urea Nitrogen 28mg/dL (8-26) Creatinine 1.0mg/dL (0.7-1.3) Estimated GFR (Cockcroft-Gault) 74.5 Glucose Level 199mg/dL (70-99) Calcium Level 8.6mg/dL (8.5-10.1) Glucose (Fingerstick) 172mg/dL (70-99) 138mg/dL (70-99) Laboratory Tests Test 08/04/16 17:03 08/04/16 20:44 08/05/16 05:30 08/05/16 07:34 Glucose (Fingerstick) 388mg/dL (70-99) 343mg/dL (70-99) 172mg/dL (70-99) White Blood Count 19.6x10^3/uL (4.0-11.0) Red Blood Count 3.78x10^6/uL (4.30-5.70) Hemoglobin 10.6g/dL (13.0-17.5) Hematocrit 33.0% (39.0-53.0) Mean Corpuscular Volume 87fL (79-100) Mean Corpuscular Hemoglobin 28pg (25-35) Mean Corpuscular Hemoglobin Concent 32g/dL (31-37) Red Cell Distribution Width 15.4% (11.5-14.5) Platelet Count 265x10^3/uL (140-400) Neutrophils (%) (Auto) 79% (31-73) Lymphocytes (%) (Auto) 8% (24-48) Monocytes (%) (Auto) 12% (0-9) Eosinophils (%) (Auto) 1% (0-3) Basophils (%) (Auto) 1% (0-3) Neutrophils # (Auto) 15.4x10^3uL (1.8-7.7) Lymphocytes # (Auto) 1.6x10^3/uL (1.0-4.8) Monocytes # (Auto) 2.3x10^3/uL (0.0-1.1) Eosinophils # (Auto) 0.2x10^3/uL (0.0-0.7) Basophils # (Auto) 0.1x10^3/uL (0.0-0.2) Segmented Neutrophils % 84% (35-66) Band Neutrophils % 1% (0-9) Lymphocytes % 6% (24-48) Monocytes % 9% (0-10) Platelet Estimate Adequate (ADEQUATE) Polychromasia Slight Anisocytosis Slight Ovalocytes Few Sodium Level 141mmol/L (136-145) Potassium Level 4.0mmol/L (3.5-5.1) Chloride Level 106mmol/L (98-107) Carbon Dioxide Level 28mmol/L (21-32) Anion Gap 7 (6-14) Blood Urea Nitrogen 28mg/dL (8-26) Creatinine 1.0mg/dL (0.7-1.3) Estimated GFR (Cockcroft-Gault) 74.5 Glucose Level 199mg/dL (70-99) Calcium Level 8.6mg/dL (8.5-10.1) Test 08/05/16 10:47 Glucose (Fingerstick) 138mg/dL (70-99) Microbiology 07/28/16 Blood Culture - Final, Complete NO GROWTH AFTER 5 DAYS Medications Current Medications Naloxone HCl 0.4 mg 0.4 mg 1X ONCE IV Last administered on 07/28/16 21:30; Start 07/28/16 at 21:30; Stop 07/28/16 at 21:31; Status DC Sodium Chloride 1,000 ml @ 1,000 mls/hr 1X ONCE IV Last administered on 21:30; Start 07/28/16 at 21:30; Stop 07/28/16 at 22:29; Status DC Ceftriaxone Sodium 1 gm/ Sodium Chloride 50 ml @ 100 mls/hr Q24H IV Last administered on 07/30/16 21:39; Start 07/29/16 at 21:00; Stop 07/31/16 at 17:33; Status DC Ceftriaxone Sodium 50 ml @ 100 mls/hr 1X ONCE IV Last administered on 21:35; Start 07/28/16 at 22:00; Stop 07/28/16 at 22:29; Status DC Heparin Sodium/ Dextrose 500 ml @ 0 mls/hr CONT PRN IV SEE I/O RECORD Last administered on 07/29/16 21:46; Start 07/28/16 at 22:00; Stop 07/30/16 at 07:59; Status DC Heparin Sodium (Porcine) 2,200 unit PRN Q6HRS PRN IV FOR UFH LEVEL LESS THAN 0.2 Last administered on 07/28/16 23:14; Start 07/28/16 at 22:00; Stop 07/30/16 at 08:00; Status DC Ondansetron HCl 4 mg 4 mg PRN Q8HRS PRN IV NAUSEA/VOMITING; Start 07/28/16 at 22 :15; Stop 07/29/16 at 22:14; Status DC Sodium Chloride 1,000 ml @ 125 mls/hr Q8H IV Last administered on 07/29/16 08: 16; Start 07/28/16 at 22:01; Stop 07/29/16 at 13:04; Status DC Metronidazole (FLAGYL 500Mmg PREMIX) 100 ml @ 100 mls/hr Q12HR IV Last administered on 08/05/16 09:16; Start 07/28/16 at 22:30 Hydralazine HCl (Apresoline) 10 mg PRN Q4HRS PRN IVP ELEVATED BP, SEE COMMENTS ; Start 07/29/16 at 03:00 Insulin Aspart (Novolog) 0-9 UNITS TIDWMEALS SQ Last administered on 07/31/16 17:51; Start 07/29/16 at 08:00; Stop 08/01/16 at 08:36; Status DC Dextrose 12.5 gm PRN Q15MIN PRN IV SEE COMMENTS; Start 07/29/16 at 03:00 Insulin Aspart (Novolog) 8 units 1X ONCE SQ Last administered on 07/29/16 08: 20; Start 07/29/16 at 08:30; Stop 07/29/16 at 08:31; Status DC Morphine Sulfate 2 mg PRN Q2HR PRN IV PAIN Last administered on 08/04/16 14:44 ; Start 07/29/16 at 09:00 Aspirin (Aspirin) 300 mg 1X ONCE DC Last administered on 07/29/16 13:17; Start 07/29/16 at 10:30; Stop 07/29/16 at 10:31; Status DC Heparin Sodium (Porcine) 1,800 unit PRN Q6HRS PRN IV FOR UFH LEVEL LESS THAN 0.2 Last administered on 07/29/16 10:35; Start 07/29/16 at 10:15; Stop 07/30/16 at 08:00; Status DC Metoprolol Tartrate (Lopressor) 5 mg Q6HRS IVP Last administered on 08/04/16 05:34; Start 07/29/16 at 13:00; Stop 08/04/16 at 14:42; Status DC Aspirin 150 mg 150 mg DAILY DC Last administered on 08/04/16 09:03; Start 07/30 at 09:00; Stop 08/04/16 at 14:42; Status DC Sodium Chloride 1,000 ml @ 60 mls/hr [id number] IV Last administered on 07/29/16 13:25; Start 07/29/16 at 13:30; Stop 07/29/16 at 13:31; Status DC Heparin Sodium (Porcine) 5000 unit/Sodium Chloride 505 ml @ 505 mls/hr 1X PERIOP ONCE IRR Last administered on 07/29/16 15:26; Start 07/29/16 at 14:00; Stop 07/29/16 at 14:59; Status DC Cefazolin Sodium/ Sodium Chloride (Ancef/Iv Sodium Chloride 0.9% 500ml Bag) 500 ml @ 500 mls/hr 1X PERIOP ONCE IRR Last administered on 07/29/16 15:26; Start 07/29/16 at 14:00; Stop 07/29/16 at 14:59; Status DC Gelatin (Gelfoam Size 12-7mm) 1 each STK-MED ONCE .ROUTE ; Start 07/29/16 at 13: 54; Stop 07/29/16 at 13:55; Status DC Cellulose 1 each STK-MED ONCE .ROUTE ; Start 07/29/16 at 13:54; Stop 07/29/16 at 13:55; Status DC Iohexol (Omnipaque 300 Mg/ml) 50 ml STK-MED ONCE .ROUTE ; Start 07/29/16 at 13:54 ; Stop 07/29/16 at 13:55; Status DC Gelatin (Gelfoam Size 100) 1 each STK-MED ONCE .ROUTE ; Start 07/29/16 at 13:54 ; Stop 07/29/16 at 13:55; Status DC Papaverine HCl 60 mg STK-MED ONCE .ROUTE ; Start 07/29/16 at 13:54; Stop 07/29/16 at 13:55; Status DC Thrombin 20,000 unit STK-MED ONCE TP ; Start 07/29/16 at 13:54; Stop 07/29/16 at 13:55; Status DC Midazolam HCl (Versed) 2 mg STK-MED ONCE .ROUTE ; Start 07/29/16 at 14:14; Stop 07/29/16 at 14:15; Status DC Fentanyl Citrate (Fentanyl 5ml Vial) 250 mcg STK-MED ONCE .ROUTE ; Start at 14:14; Stop 07/29/16 at 14:15; Status DC Rocuronium [place] 50 mg 50 mg STK-MED ONCE .ROUTE ; Start 07/29/16 at 14:14; Stop 07/29/16 at 14:15; Status DC Propofol (Diprivan) 20 ml @ As Directed STK-MED ONCE IV ; Start 07/29/16 at 14:14 ; Stop 07/29/16 at 14:15; Status DC Dexamethasone Sodium Phosphate (Decadron) 20 mg STK-MED ONCE .ROUTE ; Start 07/29 at 14:14; Stop 07/29/16 at 14:15; Status DC Ondansetron HCl (Zofran) 4 mg STK-MED ONCE .ROUTE ; Start 07/29/16 at 14:14; Stop 07/29/16 at 14:15; Status DC Lidocaine HCl 100 mg STK-MED ONCE .ROUTE ; Start 07/29/16 at 14:15; Stop 07/29/16 at 14:16; Status DC Succinylcholine Chloride (Anectine) 200 mg STK-MED ONCE .ROUTE ; Start 07/29/16 at 14:43; Stop 07/29/16 at 14:44; Status DC Phenylephrine HCl 1 mg STK-MED ONCE IV ; Start 07/29/16 at 15:01; Stop 07/29/16 at 15:02; Status DC Ephedrine Sulfate 50 mg 50 mg STK-MED ONCE .ROUTE ; Start 07/29/16 at 15:28; Stop 07/29/16 at 15:29; Status DC Insulin Human Regular/Sodium Chloride (Novolin R Vial/ Iv Normal Saline 150ml) 151.5 ml @ 7.29 mls/hr 1X ONCE IV ; Start 07/29/16 at 16:45; Stop 07/30/16 at 12 :52; Status DC Info (Anti-Coagulation Monitoring By Pharmacy) 1 each PRN DAILY PRN MC SEE COMMENTS Last administered on 07/29/16t 17:00; Start 07/29/16 at 17:00; Stop at 12:51; Status DC Heparin Sodium (Porcine) 10,000 unit STK-MED ONCE .ROUTE ; Start 07/29/16 at 17: 02; Stop 07/29/16 at 17:03; Status DC Neostigmine Methylsulfate 5 mg STK-MED ONCE .ROUTE ; Start 07/29/16 at 20:52; Stop 07/29/16 at 20:53; Status DC Glycopyrrolate (Robinul) 1 mg STK-MED ONCE .ROUTE ; Start 07/29/16 at 20:52; Stop 07/29/16 at 20:53; Status DC Fentanyl Citrate (Fentanyl 2ml Vial) 50 mcg PRN Q5MIN PRN IV Acute Pain; Start 07/29/16 at 21:15; Stop 07/30/16 at 21:14; Status DC Morphine Sulfate 4 mg PRN Q10MIN PRN IV Moderate Pain; Start 07/29/16 at 21:15; Stop 07/30/16 at 21:14; Status DC Hydromorphone HCl (Dilaudid) 0.4 mg PRN Q10MIN PRN IV Moderate to severe pain; Start 07/29/16 at 21:15; Stop 07/30/16 at 21:14; Status DC Meperidine HCl (Demerol) 12.5 mg PRN Q5MIN PRN IV SHIVERING; Start 07/29/16 at 21:15; Stop 07/30/16 at 00:00; Status DC Prochlorperazine Edisylate (Compazine) 5 mg PRN Q6HRS PRN IV Nausea/Vomiting, 1st Choice; Start 07/29/16 at 21:15; Stop 07/30/16 at 21:14; Status DC Diphenhydramine HCl 12.5 mg 12.5 mg PRN Q2HR PRN IV ITCHING; Start 07/29/16 at 21:15; Stop 07/30/16 at 21:14; Status DC Sodium Chloride (Iv Sodium Chloride 0.45%) 1,000 ml @ 100 mls/hr Q10H IV Last administered on 07/29/16 21:59; Start 07/29/16 at 22:00; Stop 07/30/16 at 09:41; Status DC Cefazolin Sodium/ Dextrose (Ancef 2gm Premix) 2 gm STK-MED ONCE IV ; Start at 17:35; Stop 07/30/16 at 08:53; Status DC Pantoprazole Sodium 40 mg 40 mg [id number] IVP Last administered on 08/01/16 17:18 ; Start 07/30/16 at 18:00; Stop 08/01/16 at 20:26; Status DC Sodium Chloride 1,000 ml @ 60 mls/hr [id number] IV Last administered on 07/30/16 09:47; Start 07/30/16 at 09:45; Stop 07/30/16 at 12:47; Status DC Cefazolin Sodium/ Sodium Chloride (Ancef/Iv Sodium Chloride 0.9% 500ml Bag) 500 ml @ 500 mls/hr 1X PERIOP ONCE IRR Last administered on 07/31/16 13:47; Start 07/31/16 at 06:00; Stop 07/31/16 at 06:59; Status DC Insulin Detemir (Levemir) 15 units [id number] SQ Last administered on 07/30/16 12: 57; Start 07/30/16 at 13:00; Stop 08/01/16 at 08:36; Status DC Insulin Aspart 12 units 12 units 1X ONCE SQ ; Start 07/30/16 at 12:45; Stop 07/30 at 12:47; Status DC Amino Acids/ Electrolytes/ Dextrose (Clinimix E 4.25%-5% Solution) 1,000 ml @ 80 mls/hr [id number] IV Last administered on 08/02/16 17:50; Start 07/30/16 at 13: 00; Stop 08/03/16 at 03:41; Status DC Ondansetron HCl (Zofran) 4 mg PRN Q6HRS PRN IV Nausea; Start 07/31/16 at 07:00; Stop 08/01/16 at 06:59; Status DC Fentanyl Citrate (Fentanyl 2ml Vial) 25 mcg PRN Q5MIN PRN IV MILD PAIN; Start 07/31/16 at 07:00; Stop 08/01/16 at 06:59; Status DC Fentanyl Citrate (Fentanyl 2ml Vial) 50 mcg PRN Q5MIN PRN IV MODERATE PAIN; Start 07/31/16 at 07:00; Stop 08/01/16 at 06:59; Status DC Morphine Sulfate 1 mg 1 mg PRN Q10MIN PRN IV SEVERE PAIN; Start 07/31/16 at 07: 00; Stop 08/01/16 at 06:59; Status DC Lactated Ringer's (Iv Lactated Ringers) 1,000 ml @ 30 mls/hr Q24H IV Last administered on 07/31/16 15:53; Start 07/31/16 at 07:00; Stop 07/31/16 at 18:59; Status DC Lidocaine HCl 2 ml 1X PRN PRN ID IV START; Start 07/31/16 at 07:00; Stop at 06:59; Status DC Hydromorphone HCl (Dilaudid) 0.5 mg PRN Q10MIN PRN IV SEVERE PAIN, Second choice; Start 07/31/16 at 07:00; Stop 08/01/16 at 06:59; Status DC Prochlorperazine Edisylate (Compazine) 5 mg PACU PRN PRN IV NAUSEA; Start at 07:00; Stop 08/01/16 at 06:59; Status DC Insulin Detemir (Levemir) 10 units QHS SQ Last administered on 07/31/16 21:49; Start 07/31/16 at 21:00; Stop 08/01/16 at 08:36; Status DC Enalaprilat (Vasotec) 1.25 mg Q6HRS IV ; Start 07/31/16 at 12:00; Stop 07/31/16 at 12:00; Status DC Enalaprilat (Vasotec) 0.625 mg Q6HRS IV Last administered on 08/04/16 05:35; Start 07/31/16 at 12:00; Stop 08/04/16 at 14:42; Status DC Fentanyl Citrate (Fentanyl 2ml Vial) 100 mcg STK-MED ONCE .ROUTE ; Start at 12:49; Stop 07/31/16 at 12:50; Status DC Rocuronium [place] (Zemuron) 50 mg STK-MED ONCE .ROUTE ; Start 07/31/16 at 12:49 ; Stop 07/31/16 at 12:50; Status DC Lidocaine HCl 100 mg 100 mg STK-MED ONCE .ROUTE ; Start 07/31/16 at 13:17; Stop 07/31/16 at 13:18; Status DC Propofol (Diprivan) 20 ml @ As Directed STK-MED ONCE IV ; Start 07/31/16 at 13:17 ; Stop 07/31/16 at 13:18; Status DC Succinylcholine Chloride (Anectine) 200 mg STK-MED ONCE .ROUTE ; Start 07/31/16 at 13:30; Stop 07/31/16 at 13:31; Status DC Dexamethasone Sodium Phosphate (Decadron) 20 mg STK-MED ONCE .ROUTE ; Start 07/31 at 13:42; Stop 07/31/16 at 13:43; Status DC Ondansetron HCl (Zofran) 4 mg STK-MED ONCE .ROUTE ; Start 07/31/16 at 13:42; Stop 07/31/16 at 13:43; Status DC Phenylephrine HCl 1 mg STK-MED ONCE IV ; Start 07/31/16 at 13:47; Stop 07/31/16 at 13:48; Status DC Fentanyl Citrate (Fentanyl 2ml Vial) 100 mcg STK-MED ONCE .ROUTE ; Start at 14:26; Stop 07/31/16 at 14:27; Status DC Sevoflurane (Ultane) 60 ml STK-MED ONCE IH ; Start 07/31/16 at 15:13; Stop at 15:14; Status DC Insulin Aspart (Novolog Vial) 3 unit 1X ONCE SQ ; Start 07/31/16 at 15:45; Stop 07/31/16 at 15:45; Status DC Insulin Aspart (Novolog) 3 units 1X ONCE SQ ; Start 07/31/16 at 15:45; Stop 07/31 at 15:46; Status Cancel Insulin Aspart (Novolog Vial) 100 unit STK-MED ONCE SQ ; Start 07/31/16 at 15:41 ; Stop 07/31/16 at 15:42; Status DC Insulin Aspart (Novolog Vial) 3 unit 1X ONCE SQ ; Start 07/31/16 at 16:00; Stop 07/31/16 at 16:01; Status Cancel Insulin Aspart 3 unit 3 unit 1X ONCE SQ Last administered on 07/31/16 15:57; Start 07/31/16 at 16:00; Stop 07/31/16 at 16:01; Status DC Ceftriaxone Sodium/Sodium Chloride (Rocephin/Iv Sodium Chloride 0.9% 50ml) 50 ml @ 100 mls/hr Q24H IV Last administered on 08/04/16 14:41; Start 08/01/16 at 14:00 Insulin Aspart (Novolog) 0-9 UNITS Q6HRS SQ Last administered on 08/03/16 18: 14; Start 08/01/16 at 12:00; Stop 08/04/16 at 12:15; Status DC Insulin Detemir (Levemir) 30 units QHS SQ Last administered on 08/04/16 21:13 ; Start 08/01/16 at 21:00 Pantoprazole Sodium 40 mg 40 mg BID IVP Last administered on 08/05/16 09:15; Start 08/01/16 at 21:00 Amino Acids/ Electrolytes 1,000 ml @ 80 mls/hr [id number] IV Last administered on 08/03/16 05:09; Start 08/03/16 at 03:41; Stop 08/03/16 at 17:24; Status DC Amino Acids/ Electrolytes (Clinimix E 2.75%-5% Solution) 2,000 ml @ 80 mls/hr Q24H IV Last administered on 08/04/16 17:38; Start 08/03/16 at 17:24 Insulin Aspart (Novolog) 0-9 UNITS TIDWMEALS SQ Last administered on 08/05/16 09:27; Start 08/04/16 at 12:11 Aspirin (Ecotrin) 81 mg [id number] PO Last administered on 08/05/16 09:14; Start 08/05/16 at 08:00 Carvedilol (Coreg) 6.25 mg BIDWMEALS PO Last administered on 08/05/16 09:15; Start 08/04/16 at 17:00 Lisinopril (Prinivil) 5 mg HS PO Last administered on 08/04/16t 21:06; Start at 21:00 Active Scripts Active Reported Hydrocodone-Apap 5-325 (Hydrocodone Bit/Acetaminophen) 1 Each Tablet 1 Tab PO Q4HRS PRN Vitals/I & O Vital Sign - Last 24 Hours 08/04/16 08/04/16 08/04/16 08/04/16 14:44 15:00 15:14 17:38 Temp 98.6 98.6 Pulse 77 72 Resp 18 B/P 126/56 Pulse Ox 96 O2 Delivery Nasal Cannula Nasal Cannula Nasal Cannula O2 Flow Rate 2.0 1.5 2.0 08/04/16 08/04/16 08/04/16 08/04/16 19:32 20:00 21:06 23:27 Temp 98.5 99.5 98.5 99.5 Pulse 84 84 75 Resp 18 18 B/P 100/47 100/47 107/59 Pulse Ox 94 94 O2 Delivery Room Air Room Air Room Air 08/05/16 08/05/16 08/05/16 08/05/16 03:02 07:00 09:15 11:37 Temp 99.5 98.1 97.8 99.5 98.1 97.8 Pulse 80 77 77 82 Resp 18 18 19 B/P 116/55 125/67 125/67 166/81 Pulse Ox 94 95 94 O2 Delivery Room Air Room Air Room Air Intake and Output 08/04/16 08/04/16 08/05/16 15:00 23:00 07:00 Intake Total 360 ml 1013 ml Output Total 850 ml 725 ml Balance -490 ml 288 ml Nutrition Consultation Dietary Evaluation: Recommendations by RD: Increase Calorie Intake Comments: Rec.d/c the Clinimix at 80 ml/hr when intake consistently > 75% of meals Diet advanced to dysphagia I/HTLs- rec. add the cardiac/diabetic diet restrictions d/t PmHx Rec. add magic cup at dinner to meet nutrition needs (provides 290 calories/9 grams of protein). Expected Outcomes/Goals: diet advancement as appropriate / meet 75% estimated nutrition needs Malnutrition Findings: Reduced [employer] Strength: N/A Weight Status: Overweight Fluid Accumulation (N/A): N/A DERECK SORIANO MD Aug 05, 2016 12:51
[2016-08-05] MEDS ORDERED: FUROSEMIDE 20 MG/2 ML VIAL IVP ONE (13:15)
[2016-08-05] MEDS: CEFTRIAXONE SODIUM 1 GM in IV NORMAL SALINE 50ML 50 ML IV SCH (14:00)
[2016-08-05] MEDS ORDERED: CEFPODOXIME PROXETIL 100 MG TABLET PO SCH (14:00)
[2016-08-05 14:38] VITALS: BP 154/75
[2016-08-05] MEDS: ENALAPRILAT 1.25 MG/ML VIAL. IV SCH ×2 (15:58→20:35)
--- NOTE | 2016-08-05 17:15 | PDOC ---
Provider Note Provider Note Onc consult dictated- [id number] Neutrophilia since 03/09 in review of records- Likely reactive to significant PVD, ? osteo with ESR 61 at . Malignancy unlikely. Transaminitis- new since labs 07/23- Alcohol related? + SH and FH of this per records Encephalopathy PVD- s/p L AKA Continue supportive care. GABINO SANDERSON DO Aug 05, 2016 17:15
[2016-08-05] MEDS: ONDANSETRON PF 4 MG/2 ML VIAL. IV PRN (17:18)
[2016-08-05] MEDS: METOPROLOL TARTRATE 5 MG/5 ML VIAL. IVP SCH (17:59)
[2016-08-05] MEDS: AA 2.75%/CALCIUM/LYTES/D5W 2,000 ML IV SCH (17:59)
[2016-08-05 18:18] VITALS: BP 142/70
[2016-08-05] MEDS: INSULIN DETEMIR 300 UNITS/3 ML INSULN.PEN. SQ SCH (20:37)
[2016-08-05] MEDS ORDERED: METRONIDAZOLE 500 MG TABLET. PO SCH (21:00)
[2016-08-05 22:40] VITALS: BP 117/60
[2016-08-06] MEDS: METOPROLOL TARTRATE 5 MG/5 ML VIAL. IVP SCH ×4 (00:37→18:11)
--- NOTE | 2016-08-06 02:19 | CONS ---
DATE OF CONSULTATION: 08/05/2016 REFERRING PROVIDER: Dr. Adams. REASON FOR CONSULTATION: Neutrophilia. HISTORY OF PRESENT ILLNESS: The patient is a 66-year-old male, who presented with encephalopathy, was found to have an NSTEMI, and also had significant peripheral vascular disease, status post left [id number] amputation on 07/31. He has been noted to have continued neutrophilia while he has been here. His admission labs on the showed a WBC of 18.1, hemoglobin 10.7, absolute neutrophil count around 15. His labs have remained unchanged for the last 5 days. The patient remains encephalopathic and does not provide any useful information or any interaction. However, his nurse was able to receive some information from a neighbor that he was evaluated at [facility] and recommended to have a leg amputation. He therefore never followed up with them any longer. Review of the records there shows that since 02/2016, he has had this neutrophilia with an ANC around 13 previously. His CRP in 02/2016 was 17, ESR 61. He was last seen in the ER on 07/23. PAST MEDICAL HISTORY: Peripheral vascular disease, diabetes, NSTEMI, nephropathy, cardiomyopathy with EF 40%, osteoarthritis, acute thrombus in the left popliteal/tibial arteries found at recent surgery. 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 FAMILY HISTORY: Reviewed from records. Mom with alcohol abuse, asthma. Dad with alcohol abuse. SOCIAL HISTORY: Per records, he was a previous smoker. He does drink alcohol. Denies any drug use. ALLERGIES: No known drug allergies. CURRENT MEDICATIONS: Aspirin, Flagyl, metoprolol, Vasotec, NovoLog, Protonix, Levemir, Rocephin, morphine, hydralazine. REVIEW OF SYSTEMS: Unobtainable due to the patient's encephalopathy. PHYSICAL EXAMINATION: VITAL SIGNS: Temperature 98.6, pulse 69, respiratory rate 19, blood pressure 154/75, 93% O2 on room air. GENERAL: He is not alert or oriented. He appears very fatigued. He opens his eyes briefly, but closes them and has no interaction with healthcare givers. HEENT: No scleral icterus. CARDIOVASCULAR: Heart is regular in rhythm and rate. LUNGS: Clear to auscultation bilaterally. ABDOMEN: Distended, no masses, continuous belching present. He has had ongoing vomiting today and vomiting just prior to me entering the room. EXTREMITIES: Status post left [id number] amputation with no obvious infection. Incision appears to be healing well. NEUROLOGIC: Continues to be encephalopathic. IMAGING AND LABORATORY DATA: Pertinent CBC findings as above. Liver enzymes on admission showed AST near 1200, now down to 200; ALT 2200, now down to 600. Review of outside labs at on 07/23/2016 were normal. He has had elevated troponins this admission. CT of the abdomen and pelvis showed possible liver infarct. Chest x-ray was unremarkable, no obvious infections found. Blood cultures have been negative. ASSESSMENT AND PLAN: The patient is a 66-year-old male with the following medical problems: 1. Persistent neutrophilia since 02/2016, per review of outside records. I suspect this is due to possible bone infection or certainly reactive to his ongoing health issues, likely significant peripheral vascular disease, warranting recent left above-knee amputation. Blood cultures have been negative. There certainly does not appear to be any underlying malignancy. He is afebrile. I would continue supportive management as you are doing. 2. Transaminitis on admission: Consider alcohol abuse or possible liver infarct. His liver enzymes were normal at on 07/23. Per review of those notes he has a strong family and personal social history of alcohol abuse. 3. Encephalopathy: New this admission. 5. Significant peripheral vascular disease: Status post left above-knee amputation on 07/31. Thank you for allowing me to participate in his care. Please call with any further questions. Discussed with his nurse as above. GABINO SANDERSON DO DR: HUGO/vikki JOB#: [id number] / [id number] ALDA
[2016-08-06 03:15] VITALS: BP 125/59
[2016-08-06] MEDS: ENALAPRILAT 1.25 MG/ML VIAL. IV SCH ×4 (04:22→22:22)
[2016-08-06 06:37] LABS: BASO % 0 % (0-3); EOS % 1 % (0-3); HEMATOCRIT 29.8 % (39.0-53.0); HEMOGLOBIN 9.4 g/dL (13.0-17.5); LYMPH # 1.2 x10^3/uL (1.0-4.8); LYMPH % 7 % (24-48); MEAN CORPUSCULAR HEMOGLOBIN 28 pg (25-35); MEAN CORPUSCULAR HGB CONC 32 g/dL (31-37); MEAN CORPUSCULAR VOLUME 89 fL (79-100); MONO % 10 % (0-9); NEUT % 83 % (31-73); PLATELET COUNT 327 x10^3/uL (140-400); RED BLOOD COUNT 3.35 x10^6/uL (4.30-5.70); RED CELL DISTRIBUTION WIDTH 15.4 % (11.5-14.5); WHITE BLOOD COUNT 18.2 x10^3/uL (4.0-11.0)
[2016-08-06 06:59] LABS: ALBUMIN 1.6 g/dL (3.4-5.0); ALBUMIN/GLOBULIN RATIO 0.3 (1.0-1.7); CALCIUM 8.4 mg/dL (8.5-10.1); CREATININE 0.9 mg/dL (0.7-1.3); GFR 84.2; POTASSIUM 4.5 mmol/L (3.5-5.1); TOTAL BILIRUBIN 0.4 mg/dL (0.2-1.0); TOTAL PROTEIN 6.2 g/dL (6.4-8.2)
[2016-08-06 07:00] VITALS: BP 95/57
--- NOTE | 2016-08-06 09:54 | PDOC ---
G I PROGRESS NOTE Subjective Denies emesis today (confirmed with staff), though has been NPO. Objective No recent BM's charted. Physical Exam Lungs clear anteriorly. RRR Abdomen soft, protuberant. Unclearly tender. Few if any bowel sounds. Review of Relevant I have reviewed the following items chris (where applicable) has been applied. Labs Laboratory Tests Test 08/04/16 12:14 08/04/16 17:03 08/04/16 20:44 08/05/16 05:30 Glucose (Fingerstick) 158mg/dL (70-99) 388mg/dL (70-99) 343mg/dL (70-99) White Blood Count 19.6x10^3/uL (4.0-11.0) Red Blood Count 3.78x10^6/uL (4.30-5.70) Hemoglobin 10.6g/dL (13.0-17.5) Hematocrit 33.0% (39.0-53.0) Mean Corpuscular Volume 87fL (79-100) Mean Corpuscular Hemoglobin 28pg (25-35) Mean Corpuscular Hemoglobin Concent 32g/dL (31-37) Red Cell Distribution Width 15.4% (11.5-14.5) Platelet Count 265x10^3/uL (140-400) Neutrophils (%) (Auto) 79% (31-73) Lymphocytes (%) (Auto) 8% (24-48) Monocytes (%) (Auto) 12% (0-9) Eosinophils (%) (Auto) 1% (0-3) Basophils (%) (Auto) 1% (0-3) Neutrophils # (Auto) 15.4x10^3uL (1.8-7.7) Lymphocytes # (Auto) 1.6x10^3/uL (1.0-4.8) Monocytes # (Auto) 2.3x10^3/uL (0.0-1.1) Eosinophils # (Auto) 0.2x10^3/uL (0.0-0.7) Basophils # (Auto) 0.1x10^3/uL (0.0-0.2) Segmented Neutrophils % 84% (35-66) Band Neutrophils % 1% (0-9) Lymphocytes % 6% (24-48) Monocytes % 9% (0-10) Platelet Estimate Adequate (ADEQUATE) Polychromasia Slight Anisocytosis Slight Ovalocytes Few Sodium Level 141mmol/L (136-145) Potassium Level 4.0mmol/L (3.5-5.1) Chloride Level 106mmol/L (98-107) Carbon Dioxide Level 28mmol/L (21-32) Anion Gap 7 (6-14) Blood Urea Nitrogen 28mg/dL (8-26) Creatinine 1.0mg/dL (0.7-1.3) Estimated GFR (Cockcroft-Gault) 74.5 Glucose Level 199mg/dL (70-99) Calcium Level 8.6mg/dL (8.5-10.1) Test 08/05/16 07:34 08/05/16 10:47 08/05/16 16:37 08/05/16 20:33 Glucose (Fingerstick) 172mg/dL (70-99) 138mg/dL (70-99) 169mg/dL (70-99) 244mg/dL (70-99) Test 08/06/16 06:15 08/06/16 07:38 White Blood Count 18.2x10^3/uL (4.0-11.0) Red Blood Count 3.35x10^6/uL (4.30-5.70) Hemoglobin 9.4g/dL (13.0-17.5) Hematocrit 29.8% (39.0-53.0) Mean Corpuscular Volume 89fL (79-100) Mean Corpuscular Hemoglobin 28pg (25-35) Mean Corpuscular Hemoglobin Concent 32g/dL (31-37) Red Cell Distribution Width 15.4% (11.5-14.5) Platelet Count 327x10^3/uL (140-400) Neutrophils (%) (Auto) 83% (31-73) Lymphocytes (%) (Auto) 7% (24-48) Monocytes (%) (Auto) 10% (0-9) Eosinophils (%) (Auto) 1% (0-3) Basophils (%) (Auto) 0% (0-3) Neutrophils # (Auto) 15.0x10^3uL (1.8-7.7) Lymphocytes # (Auto) 1.2x10^3/uL (1.0-4.8) Monocytes # (Auto) 1.8x10^3/uL (0.0-1.1) Eosinophils # (Auto) 0.1x10^3/uL (0.0-0.7) Basophils # (Auto) 0.0x10^3/uL (0.0-0.2) Sodium Level 141mmol/L (136-145) Potassium Level 4.5mmol/L (3.5-5.1) Chloride Level 105mmol/L (98-107) Carbon Dioxide Level 31mmol/L (21-32) Anion Gap 5 (6-14) Blood Urea Nitrogen 31mg/dL (8-26) Creatinine 0.9mg/dL (0.7-1.3) Estimated GFR (Cockcroft-Gault) 84.2 BUN/Creatinine Ratio 34 (6-20) Glucose Level 277mg/dL (70-99) Calcium Level 8.4mg/dL (8.5-10.1) Total Bilirubin 0.4mg/dL (0.2-1.0) Aspartate Amino Transf (AST/SGOT) 76U/L (15-37) Alanine Aminotransferase (ALT/SGPT) 128U/L (16-63) Alkaline Phosphatase 126U/L (46-116) Total Protein 6.2g/dL (6.4-8.2) Albumin 1.6g/dL (3.4-5.0) Albumin/Globulin Ratio 0.3 (1.0-1.7) Glucose (Fingerstick) 262mg/dL (70-99) Laboratory Tests Test 08/05/16 10:47 08/05/16 16:37 08/05/16 20:33 08/06/16 06:15 Glucose (Fingerstick) 138mg/dL (70-99) 169mg/dL (70-99) 244mg/dL (70-99) White Blood Count 18.2x10^3/uL (4.0-11.0) Red Blood Count 3.35x10^6/uL (4.30-5.70) Hemoglobin 9.4g/dL (13.0-17.5) Hematocrit 29.8% (39.0-53.0) Mean Corpuscular Volume 89fL (79-100) Mean Corpuscular Hemoglobin 28pg (25-35) Mean Corpuscular Hemoglobin Concent 32g/dL (31-37) Red Cell Distribution Width 15.4% (11.5-14.5) Platelet Count 327x10^3/uL (140-400) Neutrophils (%) (Auto) 83% (31-73) Lymphocytes (%) (Auto) 7% (24-48) Monocytes (%) (Auto) 10% (0-9) Eosinophils (%) (Auto) 1% (0-3) Basophils (%) (Auto) 0% (0-3) Neutrophils # (Auto) 15.0x10^3uL (1.8-7.7) Lymphocytes # (Auto) 1.2x10^3/uL (1.0-4.8) Monocytes # (Auto) 1.8x10^3/uL (0.0-1.1) Eosinophils # (Auto) 0.1x10^3/uL (0.0-0.7) Basophils # (Auto) 0.0x10^3/uL (0.0-0.2) Sodium Level 141mmol/L (136-145) Potassium Level 4.5mmol/L (3.5-5.1) Chloride Level 105mmol/L (98-107) Carbon Dioxide Level 31mmol/L (21-32) Anion Gap 5 (6-14) Blood Urea Nitrogen 31mg/dL (8-26) Creatinine 0.9mg/dL (0.7-1.3) Estimated GFR (Cockcroft-Gault) 84.2 BUN/Creatinine Ratio 34 (6-20) Glucose Level 277mg/dL (70-99) Calcium Level 8.4mg/dL (8.5-10.1) Total Bilirubin 0.4mg/dL (0.2-1.0) Aspartate Amino Transf (AST/SGOT) 76U/L (15-37) Alanine Aminotransferase (ALT/SGPT) 128U/L (16-63) Alkaline Phosphatase 126U/L (46-116) Total Protein 6.2g/dL (6.4-8.2) Albumin 1.6g/dL (3.4-5.0) Albumin/Globulin Ratio 0.3 (1.0-1.7) Test 08/06/16 07:38 Glucose (Fingerstick) 262mg/dL (70-99) Microbiology 07/28/16 Blood Culture - Final, Complete NO GROWTH AFTER 5 DAYS Medications Current Medications Naloxone HCl 0.4 mg 0.4 mg 1X ONCE IV Last administered on 07/28/16 21:30; Start 07/28/16 at 21:30; Stop 07/28/16 at 21:31; Status DC Sodium Chloride 1,000 ml @ 1,000 mls/hr 1X ONCE IV Last administered on 21:30; Start 07/28/16 at 21:30; Stop 07/28/16 at 22:29; Status DC Ceftriaxone Sodium 1 gm/ Sodium Chloride 50 ml @ 100 mls/hr Q24H IV Last administered on 07/30/16 21:39; Start 07/29/16 at 21:00; Stop 07/31/16 at 17:33; Status DC Ceftriaxone Sodium 50 ml @ 100 mls/hr 1X ONCE IV Last administered on 21:35; Start 07/28/16 at 22:00; Stop 07/28/16 at 22:29; Status DC Heparin Sodium/ Dextrose 500 ml @ 0 mls/hr CONT PRN IV SEE I/O RECORD Last administered on 07/29/16 21:46; Start 07/28/16 at 22:00; Stop 07/30/16 at 07:59; Status DC Heparin Sodium (Porcine) 2,200 unit PRN Q6HRS PRN IV FOR UFH LEVEL LESS THAN 0.2 Last administered on 07/28/16 23:14; Start 07/28/16 at 22:00; Stop 07/30/16 at 08:00; Status DC Ondansetron HCl 4 mg 4 mg PRN Q8HRS PRN IV NAUSEA/VOMITING; Start 07/28/16 at 22 :15; Stop 07/29/16 at 22:14; Status DC Sodium Chloride 1,000 ml @ 125 mls/hr Q8H IV Last administered on 07/29/16 08: 16; Start 07/28/16 at 22:01; Stop 07/29/16 at 13:04; Status DC Metronidazole (FLAGYL 500Mmg PREMIX) 100 ml @ 100 mls/hr Q12HR IV Last administered on 08/05/16 09:16; Start 07/28/16 at 22:30; Stop 08/05/16 at 13:02 ; Status DC Hydralazine HCl (Apresoline) 10 mg PRN Q4HRS PRN IVP ELEVATED BP, SEE COMMENTS ; Start 07/29/16 at 03:00 Insulin Aspart (Novolog) 0-9 UNITS TIDWMEALS SQ Last administered on 07/31/16 17:51; Start 07/29/16 at 08:00; Stop 08/01/16 at 08:36; Status DC Dextrose 12.5 gm PRN Q15MIN PRN IV SEE COMMENTS; Start 07/29/16 at 03:00 Insulin Aspart (Novolog) 8 units 1X ONCE SQ Last administered on 07/29/16 08: 20; Start 07/29/16 at 08:30; Stop 07/29/16 at 08:31; Status DC Morphine Sulfate 2 mg PRN Q2HR PRN IV PAIN Last administered on 08/04/16 14:44 ; Start 07/29/16 at 09:00 Aspirin (Aspirin) 300 mg 1X ONCE CO Last administered on 07/29/16 13:17; Start 07/29/16 at 10:30; Stop 07/29/16 at 10:31; Status DC Heparin Sodium (Porcine) 1,800 unit PRN Q6HRS PRN IV FOR UFH LEVEL LESS THAN 0.2 Last administered on 07/29/16 10:35; Start 07/29/16 at 10:15; Stop 07/30/16 at 08:00; Status DC Metoprolol Tartrate (Lopressor) 5 mg Q6HRS IVP Last administered on 08/04/16 05:34; Start 07/29/16 at 13:00; Stop 08/04/16 at 14:42; Status DC Aspirin 150 mg 150 mg DAILY CO Last administered on 08/04/16 09:03; Start 07/30 at 09:00; Stop 08/04/16 at 14:42; Status DC Sodium Chloride 1,000 ml @ 60 mls/hr [id number] IV Last administered on 07/29/16 13:25; Start 07/29/16 at 13:30; Stop 07/29/16 at 13:31; Status DC Heparin Sodium (Porcine) 5000 unit/Sodium Chloride 505 ml @ 505 mls/hr 1X PERIOP ONCE IRR Last administered on 07/29/16t 15:26; Start 07/29/16 at 14:00; Stop 07/29/16 at 14:59; Status DC Cefazolin Sodium/ Sodium Chloride (Ancef/Iv Sodium Chloride 0.9% 500ml Bag) 500 ml @ 500 mls/hr 1X PERIOP ONCE IRR Last administered on 07/29/16t 15:26; Start 07/29/16 at 14:00; Stop 07/29/16 at 14:59; Status DC Gelatin (Gelfoam Size 12-7mm) 1 each STK-MED ONCE .ROUTE ; Start 07/29/16 at 13: 54; Stop 07/29/16 at 13:55; Status DC Cellulose 1 each STK-MED ONCE .ROUTE ; Start 07/29/16 at 13:54; Stop 07/29/16 at 13:55; Status DC Iohexol (Omnipaque 300 Mg/ml) 50 ml STK-MED ONCE .ROUTE ; Start 07/29/16 at 13:54 ; Stop 07/29/16 at 13:55; Status DC Gelatin (Gelfoam Size 100) 1 each STK-MED ONCE .ROUTE ; Start 07/29/16 at 13:54 ; Stop 07/29/16 at 13:55; Status DC Papaverine HCl 60 mg STK-MED ONCE .ROUTE ; Start 07/29/16 at 13:54; Stop 07/29/16 at 13:55; Status DC Thrombin 20,000 unit STK-MED ONCE TP ; Start 07/29/16 at 13:54; Stop 07/29/16 at 13:55; Status DC Midazolam HCl (Versed) 2 mg STK-MED ONCE .ROUTE ; Start 07/29/16 at 14:14; Stop 07/29/16 at 14:15; Status DC Fentanyl Citrate (Fentanyl 5ml Vial) 250 mcg STK-MED ONCE .ROUTE ; Start at 14:14; Stop 07/29/16 at 14:15; Status DC Rocuronium Minetto 50 mg 50 mg STK-MED ONCE .ROUTE ; Start 07/29/16 at 14:14; Stop 07/29/16 at 14:15; Status DC Propofol (Diprivan) 20 ml @ As Directed STK-MED ONCE IV ; Start 07/29/16 at 14:14 ; Stop 07/29/16 at 14:15; Status DC Dexamethasone Sodium Phosphate (Decadron) 20 mg STK-MED ONCE .ROUTE ; Start 07/29 at 14:14; Stop 07/29/16 at 14:15; Status DC Ondansetron HCl (Zofran) 4 mg STK-MED ONCE .ROUTE ; Start 07/29/16 at 14:14; Stop 07/29/16 at 14:15; Status DC Lidocaine HCl 100 mg STK-MED ONCE .ROUTE ; Start 07/29/16 at 14:15; Stop 07/29/16 at 14:16; Status DC Succinylcholine Chloride (Anectine) 200 mg STK-MED ONCE .ROUTE ; Start 07/29/16 at 14:43; Stop 07/29/16 at 14:44; Status DC Phenylephrine HCl 1 mg STK-MED ONCE IV ; Start 07/29/16 at 15:01; Stop 07/29/16 at 15:02; Status DC Ephedrine Sulfate 50 mg 50 mg STK-MED ONCE .ROUTE ; Start 07/29/16 at 15:28; Stop 07/29/16 at 15:29; Status DC Insulin Human Regular/Sodium Chloride (Novolin R Vial/ Iv Normal Saline 150ml) 151.5 ml @ 7.29 mls/hr 1X ONCE IV ; Start 07/29/16 at 16:45; Stop 07/30/16 at 12 :52; Status DC Info (Anti-Coagulation Monitoring By Pharmacy) 1 each PRN DAILY PRN MC SEE COMMENTS Last administered on 07/29/16t 17:00; Start 07/29/16 at 17:00; Stop at 12:51; Status DC Heparin Sodium (Porcine) 10,000 unit STK-MED ONCE .ROUTE ; Start 07/29/16 at 17: 02; Stop 07/29/16 at 17:03; Status DC Neostigmine Methylsulfate 5 mg STK-MED ONCE .ROUTE ; Start 07/29/16 at 20:52; Stop 07/29/16 at 20:53; Status DC Glycopyrrolate (Robinul) 1 mg STK-MED ONCE .ROUTE ; Start 07/29/16 at 20:52; Stop 07/29/16 at 20:53; Status DC Fentanyl Citrate (Fentanyl 2ml Vial) 50 mcg PRN Q5MIN PRN IV Acute Pain; Start 07/29/16 at 21:15; Stop 07/30/16 at 21:14; Status DC Morphine Sulfate 4 mg PRN Q10MIN PRN IV Moderate Pain; Start 07/29/16 at 21:15; Stop 07/30/16 at 21:14; Status DC Hydromorphone HCl (Dilaudid) 0.4 mg PRN Q10MIN PRN IV Moderate to severe pain; Start 07/29/16 at 21:15; Stop 07/30/16 at 21:14; Status DC Meperidine HCl (Demerol) 12.5 mg PRN Q5MIN PRN IV SHIVERING; Start 07/29/16 at 21:15; Stop 07/30/16 at 00:00; Status DC Prochlorperazine Edisylate (Compazine) 5 mg PRN Q6HRS PRN IV Nausea/Vomiting, 1st Choice; Start 07/29/16 at 21:15; Stop 07/30/16 at 21:14; Status DC Diphenhydramine HCl 12.5 mg 12.5 mg PRN Q2HR PRN IV ITCHING; Start 07/29/16 at 21:15; Stop 07/30/16 at 21:14; Status DC Sodium Chloride (Iv Sodium Chloride 0.45%) 1,000 ml @ 100 mls/hr Q10H IV Last administered on 07/29/16 21:59; Start 07/29/16 at 22:00; Stop 07/30/16 at 09:41; Status DC Cefazolin Sodium/ Dextrose (Ancef 2gm Premix) 2 gm STK-MED ONCE IV ; Start at 17:35; Stop 07/30/16 at 08:53; Status DC Pantoprazole Sodium 40 mg 40 mg [id number] IVP Last administered on 08/01/16 17:18 ; Start 07/30/16 at 18:00; Stop 08/01/16 at 20:26; Status DC Sodium Chloride 1,000 ml @ 60 mls/hr [id number] IV Last administered on 07/30/16 09:47; Start 07/30/16 at 09:45; Stop 07/30/16 at 12:47; Status DC Cefazolin Sodium/ Sodium Chloride (Ancef/Iv Sodium Chloride 0.9% 500ml Bag) 500 ml @ 500 mls/hr 1X PERIOP ONCE IRR Last administered on 07/31/16 13:47; Start 07/31/16 at 06:00; Stop 07/31/16 at 06:59; Status DC Insulin Detemir (Levemir) 15 units [id number] SQ Last administered on 07/30/16 12: 57; Start 07/30/16 at 13:00; Stop 08/01/16 at 08:36; Status DC Insulin Aspart 12 units 12 units 1X ONCE SQ ; Start 07/30/16 at 12:45; Stop 07/30 at 12:47; Status DC Amino Acids/ Electrolytes/ Dextrose (Clinimix E 4.25%-5% Solution) 1,000 ml @ 80 mls/hr [id number] IV Last administered on 08/02/16 17:50; Start 07/30/16 at 13: 00; Stop 08/03/16 at 03:41; Status DC Ondansetron HCl (Zofran) 4 mg PRN Q6HRS PRN IV Nausea; Start 07/31/16 at 07:00; Stop 08/01/16 at 06:59; Status DC Fentanyl Citrate (Fentanyl 2ml Vial) 25 mcg PRN Q5MIN PRN IV MILD PAIN; Start 07/31/16 at 07:00; Stop 08/01/16 at 06:59; Status DC Fentanyl Citrate (Fentanyl 2ml Vial) 50 mcg PRN Q5MIN PRN IV MODERATE PAIN; Start 07/31/16 at 07:00; Stop 08/01/16 at 06:59; Status DC Morphine Sulfate 1 mg 1 mg PRN Q10MIN PRN IV SEVERE PAIN; Start 07/31/16 at 07: 00; Stop 08/01/16 at 06:59; Status DC Lactated Ringer's (Iv Lactated Ringers) 1,000 ml @ 30 mls/hr Q24H IV Last administered on 07/31/16 15:53; Start 07/31/16 at 07:00; Stop 07/31/16 at 18:59; Status DC Lidocaine HCl 2 ml 1X PRN PRN ID IV START; Start 07/31/16 at 07:00; Stop at 06:59; Status DC Hydromorphone HCl (Dilaudid) 0.5 mg PRN Q10MIN PRN IV SEVERE PAIN, Second choice; Start 07/31/16 at 07:00; Stop 08/01/16 at 06:59; Status DC Prochlorperazine Edisylate (Compazine) 5 mg PACU PRN PRN IV NAUSEA; Start at 07:00; Stop 08/01/16 at 06:59; Status DC Insulin Detemir (Levemir) 10 units QHS SQ Last administered on 07/31/16 21:49; Start 07/31/16 at 21:00; Stop 08/01/16 at 08:36; Status DC Enalaprilat (Vasotec) 1.25 mg Q6HRS IV ; Start 07/31/16 at 12:00; Stop 07/31/16 at 12:00; Status DC Enalaprilat (Vasotec) 0.625 mg Q6HRS IV Last administered on 08/04/16 05:35; Start 07/31/16 at 12:00; Stop 08/04/16 at 14:42; Status DC Fentanyl Citrate (Fentanyl 2ml Vial) 100 mcg STK-MED ONCE .ROUTE ; Start at 12:49; Stop 07/31/16 at 12:50; Status DC Rocuronium Minetto (Zemuron) 50 mg STK-MED ONCE .ROUTE ; Start 07/31/16 at 12:49 ; Stop 07/31/16 at 12:50; Status DC Lidocaine HCl 100 mg 100 mg STK-MED ONCE .ROUTE ; Start 07/31/16 at 13:17; Stop 07/31/16 at 13:18; Status DC Propofol (Diprivan) 20 ml @ As Directed STK-MED ONCE IV ; Start 07/31/16 at 13:17 ; Stop 07/31/16 at 13:18; Status DC Succinylcholine Chloride (Anectine) 200 mg STK-MED ONCE .ROUTE ; Start 07/31/16 at 13:30; Stop 07/31/16 at 13:31; Status DC Dexamethasone Sodium Phosphate (Decadron) 20 mg STK-MED ONCE .ROUTE ; Start 07/31 at 13:42; Stop 07/31/16 at 13:43; Status DC Ondansetron HCl (Zofran) 4 mg STK-MED ONCE .ROUTE ; Start 07/31/16 at 13:42; Stop 07/31/16 at 13:43; Status DC Phenylephrine HCl 1 mg STK-MED ONCE IV ; Start 07/31/16 at 13:47; Stop 07/31/16 at 13:48; Status DC Fentanyl Citrate (Fentanyl 2ml Vial) 100 mcg STK-MED ONCE .ROUTE ; Start at 14:26; Stop 07/31/16 at 14:27; Status DC Sevoflurane (Ultane) 60 ml STK-MED ONCE IH ; Start 07/31/16 at 15:13; Stop at 15:14; Status DC Insulin Aspart (Novolog Vial) 3 unit 1X ONCE SQ ; Start 07/31/16 at 15:45; Stop 07/31/16 at 15:45; Status DC Insulin Aspart (Novolog) 3 units 1X ONCE SQ ; Start 07/31/16 at 15:45; Stop 07/31 at 15:46; Status Cancel Insulin Aspart (Novolog Vial) 100 unit STK-MED ONCE SQ ; Start 07/31/16 at 15:41 ; Stop 07/31/16 at 15:42; Status DC Insulin Aspart (Novolog Vial) 3 unit 1X ONCE SQ ; Start 07/31/16 at 16:00; Stop 07/31/16 at 16:01; Status Cancel Insulin Aspart 3 unit 3 unit 1X ONCE SQ Last administered on 07/31/16 15:57; Start 07/31/16 at 16:00; Stop 07/31/16 at 16:01; Status DC Ceftriaxone Sodium/Sodium Chloride (Rocephin/Iv Sodium Chloride 0.9% 50ml) 50 ml @ 100 mls/hr Q24H IV Last administered on 08/05/16 14:00; Start 08/01/16 at 14:00 Insulin Aspart (Novolog) 0-9 UNITS Q6HRS SQ Last administered on 08/03/16 18: 14; Start 08/01/16 at 12:00; Stop 08/04/16 at 12:15; Status DC Insulin Detemir (Levemir) 30 units QHS SQ Last administered on 08/05/16 20:37 ; Start 08/01/16 at 21:00 Pantoprazole Sodium 40 mg 40 mg BID IVP Last administered on 08/05/16 20:34; Start 08/01/16 at 21:00 Amino Acids/ Electrolytes 1,000 ml @ 80 mls/hr [id number] IV Last administered on 08/03/16 05:09; Start 08/03/16 at 03:41; Stop 08/03/16 at 17:24; Status DC Amino Acids/ Electrolytes (Clinimix E 2.75%-5% Solution) 2,000 ml @ 80 mls/hr Q24H IV Last administered on 08/05/16 17:59; Start 08/03/16 at 17:24 Insulin Aspart (Novolog) 0-9 UNITS TIDWMEALS SQ Last administered on 08/05/16 09:27; Start 08/04/16 at 12:11 Aspirin (Ecotrin) 81 mg [id number] PO Last administered on 08/05/16 09:14; Start 08/05/16 at 08:00; Stop 08/05/16 at 13:50; Status DC Carvedilol (Coreg) 6.25 mg BIDWMEALS PO Last administered on 08/05/16 09:15; Start 08/04/16 at 17:00; Stop 08/05/16 at 13:50; Status DC Lisinopril (Prinivil) 5 mg HS PO Last administered on 08/04/16 21:06; Start at 21:00; Stop 08/05/16 at 13:50; Status DC Cefpodoxime Proxetil (Vantin) 200 mg BID PO ; Start 08/05/16 at 14:00; Stop at 14:08; Status DC Metronidazole (Flagyl) 500 mg BID PO ; Start 08/05/16 at 21:00; Status Cancel Furosemide (Lasix) 20 mg 1X ONCE IVP Last administered on 08/05/16 13:54; Start 08/05/16 at 13:15; Stop 08/05/16 at 13:16; Status DC Aspirin (Aspirin) 300 mg DAILY CO ; Start 08/06/16 at 09:00 Metoprolol Tartrate (Lopressor) 5 mg Q6HRS IVP Last administered on 08/06/16 06:16; Start 08/05/16 at 18:00 Enalaprilat (Vasotec) 0.625 mg Q6H IV Last administered on 08/06/16 04:22; Start 08/05/16 at 16:00 Ondansetron HCl 4 mg 4 mg PRN Q6HRS PRN IV NAUSEA/VOMITING Last administered on 08/05/16 17:18; Start 08/05/16 at 17:15 Metronidazole (FLAGYL 500Mmg PREMIX) 100 ml @ 100 mls/hr Q12HR IV Last administered on 08/05/16 22:30; Start 08/05/16 at 22:00 Active Scripts Active Reported Hydrocodone-Apap 5-325 (Hydrocodone Bit/Acetaminophen) 1 Each Tablet 1 Tab PO Q4HRS PRN Vitals/I & O Vital Sign - Last 24 Hours 08/05/16 08/05/16 08/05/16 08/05/16 11:37 14:38 15:58 17:59 Temp 97.8 98.6 97.8 98.6 Pulse 82 69 76 76 Resp 19 19 B/P 166/81 154/75 136/55 145/69 Pulse Ox 94 93 O2 Delivery Room Air Room Air 08/05/16 08/05/16 08/05/16 08/05/16 18:18 20:00 20:35 22:40 Temp 97.8 97.8 97.8 97.8 Pulse 61 61 74 Resp 20 B/P 142/70 142/70 117/60 Pulse Ox 97 96 O2 Delivery Nasal Cannula Nasal Cannula Nasal Cannula O2 Flow Rate 2.0 2.0 08/06/16 08/06/16 08/06/16 08/06/16 00:37 03:15 04:22 06:16 Temp 97.8 97.8 Pulse 65 60 60 65 Resp 22 B/P 138/55 125/59 125/59 144/57 Pulse Ox 97 O2 Delivery Nasal Cannula O2 Flow Rate 2.0 08/06/16 07:00 Temp 98.2 98.2 Pulse 59 Resp 17 B/P 95/57 Pulse Ox 97 O2 Delivery Nasal Cannula O2 Flow Rate 2.0 Intake and Output 08/05/16 08/05/16 08/06/16 15:00 23:00 07:00 Intake Total 120 ml 1380 ml Output Total 1000 ml 1450 ml Balance 120 ml -1000 ml -70 ml Problem List Problems Medical Problems: (1) Altered mental status Status: Acute (2) Dehydration Status: Acute (3) NSTEMI (non-ST elevated myocardial infarction) Status: Acute Assessment Ileus? Plan of Care: Continue current Tx, Mgmt Plan of Care Note Will check KUB. Try feed? JETHRO SEE MD Aug 06, 2016 09:54
[2016-08-06] MEDS: ONDANSETRON PF 4 MG/2 ML VIAL. IV PRN (10:16)
[2016-08-06] MEDS: PANTOPRAZOLE IV PUSH 40 MG VIAL. IVP SCH ×2 (10:19→21:11)
[2016-08-06] MEDS: METRONIDAZOLE 500mg PREMIX 100 ML IV SCH ×2 (10:19→21:11)
[2016-08-06] MEDS: ASPIRIN 300 MG SUPP.RECT PR SCH (10:20)
[2016-08-06] MEDS: INSULIN ASPART 300 UNITS/3 ML INSULN.PEN SQ SCH ×3 (10:28→17:00)
--- NOTE | 2016-08-06 10:34 | RAD ---
Portable abdomen, 08/06/2016: History: Vomiting, postop There is a moderate amount gas in the stomach. A small amount of gas is present in the bowel loops without evidence of bowel distention. No organomegaly is seen. Moderate scattered vascular calcifications are present. There is calcification of the vas deferens which can be seen in diabetics. A 17 mm radiopacity projected over the lower pelvis has been shown to represent a bladder calculus. There are moderate degenerative changes in the spine. IMPRESSION: 1. Bladder calculus. 2. No acute abdominal abnormality is detected.
--- NOTE | 2016-08-06 10:51 | PDOC ---
PROGRESS NOTES Chief Complaint Chief Complaint A/P s/p LEFt AKA () for Severe PVD Acute metabolic encephalopathy - improving. Dm 1 with Hyperglycemia. NSTEMI, med management now Vasomotor nephropathy, Diabetes with severe chronic atherosclerosis, multilevel. Cardiomyopathy Chronic systolic HF PAD Leucocytosis possible due to splenic infarcts, old Plan US abdomen no acute findings, encephalopathy improved iv diuresis prn advance diet per GI recommendations symptomatic treatment for nausea and vomiting. PPN SSI AC and HS for hyperglycemia avoid narcotics, d/w oncology continue current abx. ? metronidazole, Follow vascular recommendations. no family available for answering question, unknown baseline status. Prognosis guarded. History of Present Illness History of Present Illness more awake no vomiting sitting in chair. Vitals Vitals Vital Signs Date Time Temp Pulse Resp B/P Pulse Ox O2 Delivery O2 Flow Rate FiO2 08/06/16 10:23 147/72 08/06/16 07:00 98.2 59 17 97 Nasal Cannula 2.0 98.2 Physical Exam General: Alert, No acute distress, Other (oriented times 2) Heart: Regular rate, Normal S1, Normal S2, No murmurs, Other (2/6 systolic murmur to LLS border) Lungs: Clear Abdomen: Normal bowel sounds, Soft, No tenderness Extremities: Other Skin: No breakdown, Other Labs LABS Laboratory Tests Test 08/05/16 16:37 08/05/16 20:33 08/06/16 06:15 08/06/16 07:38 Glucose (Fingerstick) 169mg/dL (70-99) 244mg/dL (70-99) 262mg/dL (70-99) White Blood Count 18.2x10^3/uL (4.0-11.0) Red Blood Count 3.35x10^6/uL (4.30-5.70) Hemoglobin 9.4g/dL (13.0-17.5) Hematocrit 29.8% (39.0-53.0) Mean Corpuscular Volume 89fL (79-100) Mean Corpuscular Hemoglobin 28pg (25-35) Mean Corpuscular Hemoglobin Concent 32g/dL (31-37) Red Cell Distribution Width 15.4% (11.5-14.5) Platelet Count 327x10^3/uL (140-400) Neutrophils (%) (Auto) 83% (31-73) Lymphocytes (%) (Auto) 7% (24-48) Monocytes (%) (Auto) 10% (0-9) Eosinophils (%) (Auto) 1% (0-3) Basophils (%) (Auto) 0% (0-3) Neutrophils # (Auto) 15.0x10^3uL (1.8-7.7) Lymphocytes # (Auto) 1.2x10^3/uL (1.0-4.8) Monocytes # (Auto) 1.8x10^3/uL (0.0-1.1) Eosinophils # (Auto) 0.1x10^3/uL (0.0-0.7) Basophils # (Auto) 0.0x10^3/uL (0.0-0.2) Sodium Level 141mmol/L (136-145) Potassium Level 4.5mmol/L (3.5-5.1) Chloride Level 105mmol/L (98-107) Carbon Dioxide Level 31mmol/L (21-32) Anion Gap 5 (6-14) Blood Urea Nitrogen 31mg/dL (8-26) Creatinine 0.9mg/dL (0.7-1.3) Estimated GFR (Cockcroft-Gault) 84.2 BUN/Creatinine Ratio 34 (6-20) Glucose Level 277mg/dL (70-99) Calcium Level 8.4mg/dL (8.5-10.1) Total Bilirubin 0.4mg/dL (0.2-1.0) Aspartate Amino Transf (AST/SGOT) 76U/L (15-37) Alanine Aminotransferase (ALT/SGPT) 128U/L (16-63) Alkaline Phosphatase 126U/L (46-116) Total Protein 6.2g/dL (6.4-8.2) Albumin 1.6g/dL (3.4-5.0) Albumin/Globulin Ratio 0.3 (1.0-1.7) Assessment and Plan Assessmemt and Plan Problems Medical Problems: (1) Altered mental status Status: Acute (2) Dehydration Status: Acute (3) NSTEMI (non-ST elevated myocardial infarction) Status: Acute Problems: Comment Review of Relevant I have reviewed the following items chris (where applicable) has been applied. Labs Laboratory Tests Test 08/04/16 12:14 08/04/16 17:03 08/04/16 20:44 08/05/16 05:30 Glucose (Fingerstick) 158mg/dL (70-99) 388mg/dL (70-99) 343mg/dL (70-99) White Blood Count 19.6x10^3/uL (4.0-11.0) Red Blood Count 3.78x10^6/uL (4.30-5.70) Hemoglobin 10.6g/dL (13.0-17.5) Hematocrit 33.0% (39.0-53.0) Mean Corpuscular Volume 87fL (79-100) Mean Corpuscular Hemoglobin 28pg (25-35) Mean Corpuscular Hemoglobin Concent 32g/dL (31-37) Red Cell Distribution Width 15.4% (11.5-14.5) Platelet Count 265x10^3/uL (140-400) Neutrophils (%) (Auto) 79% (31-73) Lymphocytes (%) (Auto) 8% (24-48) Monocytes (%) (Auto) 12% (0-9) Eosinophils (%) (Auto) 1% (0-3) Basophils (%) (Auto) 1% (0-3) Neutrophils # (Auto) 15.4x10^3uL (1.8-7.7) Lymphocytes # (Auto) 1.6x10^3/uL (1.0-4.8) Monocytes # (Auto) 2.3x10^3/uL (0.0-1.1) Eosinophils # (Auto) 0.2x10^3/uL (0.0-0.7) Basophils # (Auto) 0.1x10^3/uL (0.0-0.2) Segmented Neutrophils % 84% (35-66) Band Neutrophils % 1% (0-9) Lymphocytes % 6% (24-48) Monocytes % 9% (0-10) Platelet Estimate Adequate (ADEQUATE) Polychromasia Slight Anisocytosis Slight Ovalocytes Few Sodium Level 141mmol/L (136-145) Potassium Level 4.0mmol/L (3.5-5.1) Chloride Level 106mmol/L (98-107) Carbon Dioxide Level 28mmol/L (21-32) Anion Gap 7 (6-14) Blood Urea Nitrogen 28mg/dL (8-26) Creatinine 1.0mg/dL (0.7-1.3) Estimated GFR (Cockcroft-Gault) 74.5 Glucose Level 199mg/dL (70-99) Calcium Level 8.6mg/dL (8.5-10.1) Test 08/05/16 07:34 08/05/16 10:47 08/05/16 16:37 08/05/16 20:33 Glucose (Fingerstick) 172mg/dL (70-99) 138mg/dL (70-99) 169mg/dL (70-99) 244mg/dL (70-99) Test 08/06/16 06:15 08/06/16 07:38 White Blood Count 18.2x10^3/uL (4.0-11.0) Red Blood Count 3.35x10^6/uL (4.30-5.70) Hemoglobin 9.4g/dL (13.0-17.5) Hematocrit 29.8% (39.0-53.0) Mean Corpuscular Volume 89fL (79-100) Mean Corpuscular Hemoglobin 28pg (25-35) Mean Corpuscular Hemoglobin Concent 32g/dL (31-37) Red Cell Distribution Width 15.4% (11.5-14.5) Platelet Count 327x10^3/uL (140-400) Neutrophils (%) (Auto) 83% (31-73) Lymphocytes (%) (Auto) 7% (24-48) Monocytes (%) (Auto) 10% (0-9) Eosinophils (%) (Auto) 1% (0-3) Basophils (%) (Auto) 0% (0-3) Neutrophils # (Auto) 15.0x10^3uL (1.8-7.7) Lymphocytes # (Auto) 1.2x10^3/uL (1.0-4.8) Monocytes # (Auto) 1.8x10^3/uL (0.0-1.1) Eosinophils # (Auto) 0.1x10^3/uL (0.0-0.7) Basophils # (Auto) 0.0x10^3/uL (0.0-0.2) Sodium Level 141mmol/L (136-145) Potassium Level 4.5mmol/L (3.5-5.1) Chloride Level 105mmol/L (98-107) Carbon Dioxide Level 31mmol/L (21-32) Anion Gap 5 (6-14) Blood Urea Nitrogen 31mg/dL (8-26) Creatinine 0.9mg/dL (0.7-1.3) Estimated GFR (Cockcroft-Gault) 84.2 BUN/Creatinine Ratio 34 (6-20) Glucose Level 277mg/dL (70-99) Calcium Level 8.4mg/dL (8.5-10.1) Total Bilirubin 0.4mg/dL (0.2-1.0) Aspartate Amino Transf (AST/SGOT) 76U/L (15-37) Alanine Aminotransferase (ALT/SGPT) 128U/L (16-63) Alkaline Phosphatase 126U/L (46-116) Total Protein 6.2g/dL (6.4-8.2) Albumin 1.6g/dL (3.4-5.0) Albumin/Globulin Ratio 0.3 (1.0-1.7) Glucose (Fingerstick) 262mg/dL (70-99) Laboratory Tests Test 08/05/16 16:37 08/05/16 20:33 08/06/16 06:15 08/06/16 07:38 Glucose (Fingerstick) 169mg/dL (70-99) 244mg/dL (70-99) 262mg/dL (70-99) White Blood Count 18.2x10^3/uL (4.0-11.0) Red Blood Count 3.35x10^6/uL (4.30-5.70) Hemoglobin 9.4g/dL (13.0-17.5) Hematocrit 29.8% (39.0-53.0) Mean Corpuscular Volume 89fL (79-100) Mean Corpuscular Hemoglobin 28pg (25-35) Mean Corpuscular Hemoglobin Concent 32g/dL (31-37) Red Cell Distribution Width 15.4% (11.5-14.5) Platelet Count 327x10^3/uL (140-400) Neutrophils (%) (Auto) 83% (31-73) Lymphocytes (%) (Auto) 7% (24-48) Monocytes (%) (Auto) 10% (0-9) Eosinophils (%) (Auto) 1% (0-3) Basophils (%) (Auto) 0% (0-3) Neutrophils # (Auto) 15.0x10^3uL (1.8-7.7) Lymphocytes # (Auto) 1.2x10^3/uL (1.0-4.8) Monocytes # (Auto) 1.8x10^3/uL (0.0-1.1) Eosinophils # (Auto) 0.1x10^3/uL (0.0-0.7) Basophils # (Auto) 0.0x10^3/uL (0.0-0.2) Sodium Level 141mmol/L (136-145) Potassium Level 4.5mmol/L (3.5-5.1) Chloride Level 105mmol/L (98-107) Carbon Dioxide Level 31mmol/L (21-32) Anion Gap 5 (6-14) Blood Urea Nitrogen 31mg/dL (8-26) Creatinine 0.9mg/dL (0.7-1.3) Estimated GFR (Cockcroft-Gault) 84.2 BUN/Creatinine Ratio 34 (6-20) Glucose Level 277mg/dL (70-99) Calcium Level 8.4mg/dL (8.5-10.1) Total Bilirubin 0.4mg/dL (0.2-1.0) Aspartate Amino Transf (AST/SGOT) 76U/L (15-37) Alanine Aminotransferase (ALT/SGPT) 128U/L (16-63) Alkaline Phosphatase 126U/L (46-116) Total Protein 6.2g/dL (6.4-8.2) Albumin 1.6g/dL (3.4-5.0) Albumin/Globulin Ratio 0.3 (1.0-1.7) Microbiology 07/28/16 Blood Culture - Final, Complete NO GROWTH AFTER 5 DAYS Medications Current Medications Naloxone HCl 0.4 mg 0.4 mg 1X ONCE IV Last administered on 07/28/16 21:30; Start 07/28/16 at 21:30; Stop 07/28/16 at 21:31; Status DC Sodium Chloride 1,000 ml @ 1,000 mls/hr 1X ONCE IV Last administered on 21:30; Start 07/28/16 at 21:30; Stop 07/28/16 at 22:29; Status DC Ceftriaxone Sodium 1 gm/ Sodium Chloride 50 ml @ 100 mls/hr Q24H IV Last administered on 07/30/16 21:39; Start 07/29/16 at 21:00; Stop 07/31/16 at 17:33; Status DC Ceftriaxone Sodium 50 ml @ 100 mls/hr 1X ONCE IV Last administered on 21:35; Start 07/28/16 at 22:00; Stop 07/28/16 at 22:29; Status DC Heparin Sodium/ Dextrose 500 ml @ 0 mls/hr CONT PRN IV SEE I/O RECORD Last administered on 07/29/16 21:46; Start 07/28/16 at 22:00; Stop 07/30/16 at 07:59; Status DC Heparin Sodium (Porcine) 2,200 unit PRN Q6HRS PRN IV FOR UFH LEVEL LESS THAN 0.2 Last administered on 07/28/16 23:14; Start 07/28/16 at 22:00; Stop 07/30/16 at 08:00; Status DC Ondansetron HCl 4 mg 4 mg PRN Q8HRS PRN IV NAUSEA/VOMITING; Start 07/28/16 at 22 :15; Stop 07/29/16 at 22:14; Status DC Sodium Chloride 1,000 ml @ 125 mls/hr Q8H IV Last administered on 07/29/16 08: 16; Start 07/28/16 at 22:01; Stop 07/29/16 at 13:04; Status DC Metronidazole (FLAGYL 500Mmg PREMIX) 100 ml @ 100 mls/hr Q12HR IV Last administered on 08/05/16 09:16; Start 07/28/16 at 22:30; Stop 08/05/16 at 13:02 ; Status DC Hydralazine HCl (Apresoline) 10 mg PRN Q4HRS PRN IVP ELEVATED BP, SEE COMMENTS ; Start 07/29/16 at 03:00 Insulin Aspart (Novolog) 0-9 UNITS TIDWMEALS SQ Last administered on 07/31/16 17:51; Start 07/29/16 at 08:00; Stop 08/01/16 at 08:36; Status DC Dextrose 12.5 gm PRN Q15MIN PRN IV SEE COMMENTS; Start 07/29/16 at 03:00 Insulin Aspart (Novolog) 8 units 1X ONCE SQ Last administered on 07/29/16 08: 20; Start 07/29/16 at 08:30; Stop 07/29/16 at 08:31; Status DC Morphine Sulfate 2 mg PRN Q2HR PRN IV PAIN Last administered on 08/04/16 14:44 ; Start 07/29/16 at 09:00 Aspirin (Aspirin) 300 mg 1X ONCE PA Last administered on 07/29/16 13:17; Start 07/29/16 at 10:30; Stop 07/29/16 at 10:31; Status DC Heparin Sodium (Porcine) 1,800 unit PRN Q6HRS PRN IV FOR UFH LEVEL LESS THAN 0.2 Last administered on 07/29/16 10:35; Start 07/29/16 at 10:15; Stop 07/30/16 at 08:00; Status DC Metoprolol Tartrate (Lopressor) 5 mg Q6HRS IVP Last administered on 08/04/16 05:34; Start 07/29/16 at 13:00; Stop 08/04/16 at 14:42; Status DC Aspirin 150 mg 150 mg DAILY PA Last administered on 08/04/16 09:03; Start 07/30 at 09:00; Stop 08/04/16 at 14:42; Status DC Sodium Chloride 1,000 ml @ 60 mls/hr [id number] IV Last administered on 07/29/16 13:25; Start 07/29/16 at 13:30; Stop 07/29/16 at 13:31; Status DC Heparin Sodium (Porcine) 5000 unit/Sodium Chloride 505 ml @ 505 mls/hr 1X PERIOP ONCE IRR Last administered on 07/29/16 15:26; Start 07/29/16 at 14:00; Stop 07/29/16 at 14:59; Status DC Cefazolin Sodium/ Sodium Chloride (Ancef/Iv Sodium Chloride 0.9% 500ml Bag) 500 ml @ 500 mls/hr 1X PERIOP ONCE IRR Last administered on 07/29/16 15:26; Start 07/29/16 at 14:00; Stop 07/29/16 at 14:59; Status DC Gelatin (Gelfoam Size 12-7mm) 1 each STK-MED ONCE .ROUTE ; Start 07/29/16 at 13: 54; Stop 07/29/16 at 13:55; Status DC Cellulose 1 each STK-MED ONCE .ROUTE ; Start 07/29/16 at 13:54; Stop 07/29/16 at 13:55; Status DC Iohexol (Omnipaque 300 Mg/ml) 50 ml STK-MED ONCE .ROUTE ; Start 07/29/16 at 13:54 ; Stop 07/29/16 at 13:55; Status DC Gelatin (Gelfoam Size 100) 1 each STK-MED ONCE .ROUTE ; Start 07/29/16 at 13:54 ; Stop 07/29/16 at 13:55; Status DC Papaverine HCl 60 mg STK-MED ONCE .ROUTE ; Start 07/29/16 at 13:54; Stop 07/29/16 at 13:55; Status DC Thrombin 20,000 unit STK-MED ONCE TP ; Start 07/29/16 at 13:54; Stop 07/29/16 at 13:55; Status DC Midazolam HCl (Versed) 2 mg STK-MED ONCE .ROUTE ; Start 07/29/16 at 14:14; Stop 07/29/16 at 14:15; Status DC Fentanyl Citrate (Fentanyl 5ml Vial) 250 mcg STK-MED ONCE .ROUTE ; Start at 14:14; Stop 07/29/16 at 14:15; Status DC Rocuronium Baylis 50 mg 50 mg STK-MED ONCE .ROUTE ; Start 07/29/16 at 14:14; Stop 07/29/16 at 14:15; Status DC Propofol (Diprivan) 20 ml @ As Directed STK-MED ONCE IV ; Start 07/29/16 at 14:14 ; Stop 07/29/16 at 14:15; Status DC Dexamethasone Sodium Phosphate (Decadron) 20 mg STK-MED ONCE .ROUTE ; Start 07/29 at 14:14; Stop 07/29/16 at 14:15; Status DC Ondansetron HCl (Zofran) 4 mg STK-MED ONCE .ROUTE ; Start 07/29/16 at 14:14; Stop 07/29/16 at 14:15; Status DC Lidocaine HCl 100 mg STK-MED ONCE .ROUTE ; Start 07/29/16 at 14:15; Stop 07/29/16 at 14:16; Status DC Succinylcholine Chloride (Anectine) 200 mg STK-MED ONCE .ROUTE ; Start 07/29/16 at 14:43; Stop 07/29/16 at 14:44; Status DC Phenylephrine HCl 1 mg STK-MED ONCE IV ; Start 07/29/16 at 15:01; Stop 07/29/16 at 15:02; Status DC Ephedrine Sulfate 50 mg 50 mg STK-MED ONCE .ROUTE ; Start 07/29/16 at 15:28; Stop 07/29/16 at 15:29; Status DC Insulin Human Regular/Sodium Chloride (Novolin R Vial/ Iv Normal Saline 150ml) 151.5 ml @ 7.29 mls/hr 1X ONCE IV ; Start 07/29/16 at 16:45; Stop 07/30/16 at 12 :52; Status DC Info (Anti-Coagulation Monitoring By Pharmacy) 1 each PRN DAILY PRN MC SEE COMMENTS Last administered on 07/29/16t 17:00; Start 07/29/16 at 17:00; Stop at 12:51; Status DC Heparin Sodium (Porcine) 10,000 unit STK-MED ONCE .ROUTE ; Start 07/29/16 at 17: 02; Stop 07/29/16 at 17:03; Status DC Neostigmine Methylsulfate 5 mg STK-MED ONCE .ROUTE ; Start 07/29/16 at 20:52; Stop 07/29/16 at 20:53; Status DC Glycopyrrolate (Robinul) 1 mg STK-MED ONCE .ROUTE ; Start 07/29/16 at 20:52; Stop 07/29/16 at 20:53; Status DC Fentanyl Citrate (Fentanyl 2ml Vial) 50 mcg PRN Q5MIN PRN IV Acute Pain; Start 07/29/16 at 21:15; Stop 07/30/16 at 21:14; Status DC Morphine Sulfate 4 mg PRN Q10MIN PRN IV Moderate Pain; Start 07/29/16 at 21:15; Stop 07/30/16 at 21:14; Status DC Hydromorphone HCl (Dilaudid) 0.4 mg PRN Q10MIN PRN IV Moderate to severe pain; Start 07/29/16 at 21:15; Stop 07/30/16 at 21:14; Status DC Meperidine HCl (Demerol) 12.5 mg PRN Q5MIN PRN IV SHIVERING; Start 07/29/16 at 21:15; Stop 07/30/16 at 00:00; Status DC Prochlorperazine Edisylate (Compazine) 5 mg PRN Q6HRS PRN IV Nausea/Vomiting, 1st Choice; Start 07/29/16 at 21:15; Stop 07/30/16 at 21:14; Status DC Diphenhydramine HCl 12.5 mg 12.5 mg PRN Q2HR PRN IV ITCHING; Start 07/29/16 at 21:15; Stop 07/30/16 at 21:14; Status DC Sodium Chloride (Iv Sodium Chloride 0.45%) 1,000 ml @ 100 mls/hr Q10H IV Last administered on 07/29/16 21:59; Start 07/29/16 at 22:00; Stop 07/30/16 at 09:41; Status DC Cefazolin Sodium/ Dextrose (Ancef 2gm Premix) 2 gm STK-MED ONCE IV ; Start at 17:35; Stop 07/30/16 at 08:53; Status DC Pantoprazole Sodium 40 mg 40 mg [id number] IVP Last administered on 08/01/16 17:18 ; Start 07/30/16 at 18:00; Stop 08/01/16 at 20:26; Status DC Sodium Chloride 1,000 ml @ 60 mls/hr [id number] IV Last administered on 07/30/16 09:47; Start 07/30/16 at 09:45; Stop 07/30/16 at 12:47; Status DC Cefazolin Sodium/ Sodium Chloride (Ancef/Iv Sodium Chloride 0.9% 500ml Bag) 500 ml @ 500 mls/hr 1X PERIOP ONCE IRR Last administered on 07/31/16 13:47; Start 07/31/16 at 06:00; Stop 07/31/16 at 06:59; Status DC Insulin Detemir (Levemir) 15 units [id number] SQ Last administered on 07/30/16 12: 57; Start 07/30/16 at 13:00; Stop 08/01/16 at 08:36; Status DC Insulin Aspart 12 units 12 units 1X ONCE SQ ; Start 07/30/16 at 12:45; Stop 07/30 at 12:47; Status DC Amino Acids/ Electrolytes/ Dextrose (Clinimix E 4.25%-5% Solution) 1,000 ml @ 80 mls/hr [id number] IV Last administered on 08/02/16t 17:50; Start 07/30/16 at 13: 00; Stop 08/03/16 at 03:41; Status DC Ondansetron HCl (Zofran) 4 mg PRN Q6HRS PRN IV Nausea; Start 07/31/16 at 07:00; Stop 08/01/16 at 06:59; Status DC Fentanyl Citrate (Fentanyl 2ml Vial) 25 mcg PRN Q5MIN PRN IV MILD PAIN; Start 07/31/16 at 07:00; Stop 08/01/16 at 06:59; Status DC Fentanyl Citrate (Fentanyl 2ml Vial) 50 mcg PRN Q5MIN PRN IV MODERATE PAIN; Start 07/31/16 at 07:00; Stop 08/01/16 at 06:59; Status DC Morphine Sulfate 1 mg 1 mg PRN Q10MIN PRN IV SEVERE PAIN; Start 07/31/16 at 07: 00; Stop 08/01/16 at 06:59; Status DC Lactated Ringer's (Iv Lactated Ringers) 1,000 ml @ 30 mls/hr Q24H IV Last administered on 07/31/16t 15:53; Start 07/31/16 at 07:00; Stop 07/31/16 at 18:59; Status DC Lidocaine HCl 2 ml 1X PRN PRN ID IV START; Start 07/31/16 at 07:00; Stop at 06:59; Status DC Hydromorphone HCl (Dilaudid) 0.5 mg PRN Q10MIN PRN IV SEVERE PAIN, Second choice; Start 07/31/16 at 07:00; Stop 08/01/16 at 06:59; Status DC Prochlorperazine Edisylate (Compazine) 5 mg PACU PRN PRN IV NAUSEA; Start at 07:00; Stop 08/01/16 at 06:59; Status DC Insulin Detemir (Levemir) 10 units QHS SQ Last administered on 07/31/16 21:49; Start 07/31/16 at 21:00; Stop 08/01/16 at 08:36; Status DC Enalaprilat (Vasotec) 1.25 mg Q6HRS IV ; Start 07/31/16 at 12:00; Stop 07/31/16 at 12:00; Status DC Enalaprilat (Vasotec) 0.625 mg Q6HRS IV Last administered on 08/04/16 05:35; Start 07/31/16 at 12:00; Stop 08/04/16 at 14:42; Status DC Fentanyl Citrate (Fentanyl 2ml Vial) 100 mcg STK-MED ONCE .ROUTE ; Start at 12:49; Stop 07/31/16 at 12:50; Status DC Rocuronium Baylis (Zemuron) 50 mg STK-MED ONCE .ROUTE ; Start 07/31/16 at 12:49 ; Stop 07/31/16 at 12:50; Status DC Lidocaine HCl 100 mg 100 mg STK-MED ONCE .ROUTE ; Start 07/31/16 at 13:17; Stop 07/31/16 at 13:18; Status DC Propofol (Diprivan) 20 ml @ As Directed STK-MED ONCE IV ; Start 07/31/16 at 13:17 ; Stop 07/31/16 at 13:18; Status DC Succinylcholine Chloride (Anectine) 200 mg STK-MED ONCE .ROUTE ; Start 07/31/16 at 13:30; Stop 07/31/16 at 13:31; Status DC Dexamethasone Sodium Phosphate (Decadron) 20 mg STK-MED ONCE .ROUTE ; Start 07/31 at 13:42; Stop 07/31/16 at 13:43; Status DC Ondansetron HCl (Zofran) 4 mg STK-MED ONCE .ROUTE ; Start 07/31/16 at 13:42; Stop 07/31/16 at 13:43; Status DC Phenylephrine HCl 1 mg STK-MED ONCE IV ; Start 07/31/16 at 13:47; Stop 07/31/16 at 13:48; Status DC Fentanyl Citrate (Fentanyl 2ml Vial) 100 mcg STK-MED ONCE .ROUTE ; Start at 14:26; Stop 07/31/16 at 14:27; Status DC Sevoflurane (Ultane) 60 ml STK-MED ONCE IH ; Start 07/31/16 at 15:13; Stop at 15:14; Status DC Insulin Aspart (Novolog Vial) 3 unit 1X ONCE SQ ; Start 07/31/16 at 15:45; Stop 07/31/16 at 15:45; Status DC Insulin Aspart (Novolog) 3 units 1X ONCE SQ ; Start 07/31/16 at 15:45; Stop 07/31 at 15:46; Status Cancel Insulin Aspart (Novolog Vial) 100 unit STK-MED ONCE SQ ; Start 07/31/16 at 15:41 ; Stop 07/31/16 at 15:42; Status DC Insulin Aspart (Novolog Vial) 3 unit 1X ONCE SQ ; Start 07/31/16 at 16:00; Stop 07/31/16 at 16:01; Status Cancel Insulin Aspart 3 unit 3 unit 1X ONCE SQ Last administered on 07/31/16 15:57; Start 07/31/16 at 16:00; Stop 07/31/16 at 16:01; Status DC Ceftriaxone Sodium/Sodium Chloride (Rocephin/Iv Sodium Chloride 0.9% 50ml) 50 ml @ 100 mls/hr Q24H IV Last administered on 08/05/16 14:00; Start 08/01/16 at 14:00 Insulin Aspart (Novolog) 0-9 UNITS Q6HRS SQ Last administered on 08/03/16 18: 14; Start 08/01/16 at 12:00; Stop 08/04/16 at 12:15; Status DC Insulin Detemir (Levemir) 30 units QHS SQ Last administered on 08/05/16 20:37 ; Start 08/01/16 at 21:00 Pantoprazole Sodium 40 mg 40 mg BID IVP Last administered on 08/06/16 10:19; Start 08/01/16 at 21:00 Amino Acids/ Electrolytes 1,000 ml @ 80 mls/hr [id number] IV Last administered on 08/03/16 05:09; Start 08/03/16 at 03:41; Stop 08/03/16 at 17:24; Status DC Amino Acids/ Electrolytes (Clinimix E 2.75%-5% Solution) 2,000 ml @ 80 mls/hr Q24H IV Last administered on 08/05/16 17:59; Start 08/03/16 at 17:24 Insulin Aspart (Novolog) 0-9 UNITS TIDWMEALS SQ Last administered on 08/06/16 10:28; Start 08/04/16 at 12:11 Aspirin (Ecotrin) 81 mg [id number] PO Last administered on 08/05/16 09:14; Start 08/05/16 at 08:00; Stop 08/05/16 at 13:50; Status DC Carvedilol (Coreg) 6.25 mg BIDWMEALS PO Last administered on 08/05/16 09:15; Start 08/04/16 at 17:00; Stop 08/05/16 at 13:50; Status DC Lisinopril (Prinivil) 5 mg HS PO Last administered on 08/04/16 21:06; Start at 21:00; Stop 08/05/16 at 13:50; Status DC Cefpodoxime Proxetil (Vantin) 200 mg BID PO ; Start 08/05/16 at 14:00; Stop at 14:08; Status DC Metronidazole (Flagyl) 500 mg BID PO ; Start 08/05/16 at 21:00; Status Cancel Furosemide (Lasix) 20 mg 1X ONCE IVP Last administered on 08/05/16 13:54; Start 08/05/16 at 13:15; Stop 08/05/16 at 13:16; Status DC Aspirin (Aspirin) 300 mg DAILY PA Last administered on 08/06/16 10:20; Start 08/06/16 at 09:00 Metoprolol Tartrate (Lopressor) 5 mg Q6HRS IVP Last administered on 08/06/16 06:16; Start 08/05/16 at 18:00 Enalaprilat (Vasotec) 0.625 mg Q6H IV Last administered on 08/06/16 10:23; Start 08/05/16 at 16:00 Ondansetron HCl 4 mg 4 mg PRN Q6HRS PRN IV NAUSEA/VOMITING Last administered on 3/15/17at 10:16; Start 08/05/16 at 17:15 Metronidazole (FLAGYL 500Mmg PREMIX) 100 ml @ 100 mls/hr Q12HR IV Last administered on 08/06/16 10:19; Start 08/05/16 at 22:00 Active Scripts Active Reported Hydrocodone-Apap 5-325 (Hydrocodone Bit/Acetaminophen) 1 Each Tablet 1 Tab PO Q4HRS PRN Vitals/I & O Vital Sign - Last 24 Hours 08/05/16 08/05/16 08/05/16 08/05/16 11:37 14:38 15:58 17:59 Temp 97.8 98.6 97.8 98.6 Pulse 82 69 76 76 Resp 19 19 B/P 166/81 154/75 136/55 145/69 Pulse Ox 94 93 O2 Delivery Room Air Room Air 08/05/16 08/05/16 08/05/16 08/05/16 18:18 20:00 20:35 22:40 Temp 97.8 97.8 97.8 97.8 Pulse 61 61 74 Resp 20 B/P 142/70 142/70 117/60 Pulse Ox 97 96 O2 Delivery Nasal Cannula Nasal Cannula Nasal Cannula O2 Flow Rate 2.0 2.0 08/06/16 08/06/16 08/06/16 08/06/16 00:37 03:15 04:22 06:16 Temp 97.8 97.8 Pulse 65 60 60 65 Resp 22 B/P 138/55 125/59 125/59 144/57 Pulse Ox 97 O2 Delivery Nasal Cannula O2 Flow Rate 2.0 08/06/16 08/06/16 07:00 10:23 Temp 98.2 98.2 Pulse 59 Resp 17 B/P 95/57 147/72 Pulse Ox 97 O2 Delivery Nasal Cannula O2 Flow Rate 2.0 Intake and Output 08/05/16 08/05/16 08/06/16 15:00 23:00 07:00 Intake Total 120 ml 1380 ml Output Total 1000 ml 1450 ml Balance 120 ml -1000 ml -70 ml Nutrition Consultation Dietary Evaluation: Recommendations by RD: Increase Calorie Intake Comments: Rec. continue the clinimix at 80 ml/hr until intake is consistently >75% of meals and pt is tolerating Rec. continue the magic cup at dinner to meet nutrition needs (provides 290 calories/9 grams of protein). 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
[2016-08-06 11:00] VITALS: BP 147/72
--- NOTE | 2016-08-06 12:09 | PDOC ---
PROGRESS NOTES Assessment Problems Medical Problems: (1) Altered mental status Status: Acute (2) Dehydration Status: Acute (3) NSTEMI (non-ST elevated myocardial infarction) Status: Acute Metabolic encephalopathy. Plan Will follow Doubt repeat EEG or CT scan would be helpful. Subjective None Objective Vital Signs Date Time Temp Pulse Resp B/P Pulse Ox O2 Delivery O2 Flow Rate FiO2 08/06/16 11:00 98.7 70 18 147/72 96 Nasal Cannula 2.0 98.7 Intake and Output 08/06/16 07:00 Intake Total 1500 ml Output Total 2450 ml Balance -950 ml Intake Oral 120 ml IV Total 1380 ml Output Urine Total 2450 ml PHYSICAL EXAM Drowsy, alerts a little to loud voice, tells me name only PERRL. EOMI. CN: no focal findings. Muscle tone: normal. Muscle strength: moves all extremities, DTR: 1+ Plantar reflex: flexor, LLE AKA Gait: not examined in bed. Sensory exam: no abnormal findings. No cerebellar signs elicited. Review of Relevant I have reviewed the following items chris (where applicable) has been applied. Labs Laboratory Tests Test 08/04/16 12:14 08/04/16 17:03 08/04/16 20:44 08/05/16 05:30 Glucose (Fingerstick) 158mg/dL (70-99) 388mg/dL (70-99) 343mg/dL (70-99) White Blood Count 19.6x10^3/uL (4.0-11.0) Red Blood Count 3.78x10^6/uL (4.30-5.70) Hemoglobin 10.6g/dL (13.0-17.5) Hematocrit 33.0% (39.0-53.0) Mean Corpuscular Volume 87fL (79-100) Mean Corpuscular Hemoglobin 28pg (25-35) Mean Corpuscular Hemoglobin Concent 32g/dL (31-37) Red Cell Distribution Width 15.4% (11.5-14.5) Platelet Count 265x10^3/uL (140-400) Neutrophils (%) (Auto) 79% (31-73) Lymphocytes (%) (Auto) 8% (24-48) Monocytes (%) (Auto) 12% (0-9) Eosinophils (%) (Auto) 1% (0-3) Basophils (%) (Auto) 1% (0-3) Neutrophils # (Auto) 15.4x10^3uL (1.8-7.7) Lymphocytes # (Auto) 1.6x10^3/uL (1.0-4.8) Monocytes # (Auto) 2.3x10^3/uL (0.0-1.1) Eosinophils # (Auto) 0.2x10^3/uL (0.0-0.7) Basophils # (Auto) 0.1x10^3/uL (0.0-0.2) Segmented Neutrophils % 84% (35-66) Band Neutrophils % 1% (0-9) Lymphocytes % 6% (24-48) Monocytes % 9% (0-10) Platelet Estimate Adequate (ADEQUATE) Polychromasia Slight Anisocytosis Slight Ovalocytes Few Sodium Level 141mmol/L (136-145) Potassium Level 4.0mmol/L (3.5-5.1) Chloride Level 106mmol/L (98-107) Carbon Dioxide Level 28mmol/L (21-32) Anion Gap 7 (6-14) Blood Urea Nitrogen 28mg/dL (8-26) Creatinine 1.0mg/dL (0.7-1.3) Estimated GFR (Cockcroft-Gault) 74.5 Glucose Level 199mg/dL (70-99) Calcium Level 8.6mg/dL (8.5-10.1) Test 08/05/16 07:34 08/05/16 10:47 08/05/16 16:37 08/05/16 20:33 Glucose (Fingerstick) 172mg/dL (70-99) 138mg/dL (70-99) 169mg/dL (70-99) 244mg/dL (70-99) Test 08/06/16 06:15 08/06/16 07:38 White Blood Count 18.2x10^3/uL (4.0-11.0) Red Blood Count 3.35x10^6/uL (4.30-5.70) Hemoglobin 9.4g/dL (13.0-17.5) Hematocrit 29.8% (39.0-53.0) Mean Corpuscular Volume 89fL (79-100) Mean Corpuscular Hemoglobin 28pg (25-35) Mean Corpuscular Hemoglobin Concent 32g/dL (31-37) Red Cell Distribution Width 15.4% (11.5-14.5) Platelet Count 327x10^3/uL (140-400) Neutrophils (%) (Auto) 83% (31-73) Lymphocytes (%) (Auto) 7% (24-48) Monocytes (%) (Auto) 10% (0-9) Eosinophils (%) (Auto) 1% (0-3) Basophils (%) (Auto) 0% (0-3) Neutrophils # (Auto) 15.0x10^3uL (1.8-7.7) Lymphocytes # (Auto) 1.2x10^3/uL (1.0-4.8) Monocytes # (Auto) 1.8x10^3/uL (0.0-1.1) Eosinophils # (Auto) 0.1x10^3/uL (0.0-0.7) Basophils # (Auto) 0.0x10^3/uL (0.0-0.2) Sodium Level 141mmol/L (136-145) Potassium Level 4.5mmol/L (3.5-5.1) Chloride Level 105mmol/L (98-107) Carbon Dioxide Level 31mmol/L (21-32) Anion Gap 5 (6-14) Blood Urea Nitrogen 31mg/dL (8-26) Creatinine 0.9mg/dL (0.7-1.3) Estimated GFR (Cockcroft-Gault) 84.2 BUN/Creatinine Ratio 34 (6-20) Glucose Level 277mg/dL (70-99) Calcium Level 8.4mg/dL (8.5-10.1) Total Bilirubin 0.4mg/dL (0.2-1.0) Aspartate Amino Transf (AST/SGOT) 76U/L (15-37) Alanine Aminotransferase (ALT/SGPT) 128U/L (16-63) Alkaline Phosphatase 126U/L (46-116) Total Protein 6.2g/dL (6.4-8.2) Albumin 1.6g/dL (3.4-5.0) Albumin/Globulin Ratio 0.3 (1.0-1.7) Glucose (Fingerstick) 262mg/dL (70-99) Laboratory Tests Test 08/05/16 16:37 08/05/16 20:33 08/06/16 06:15 08/06/16 07:38 Glucose (Fingerstick) 169mg/dL (70-99) 244mg/dL (70-99) 262mg/dL (70-99) White Blood Count 18.2x10^3/uL (4.0-11.0) Red Blood Count 3.35x10^6/uL (4.30-5.70) Hemoglobin 9.4g/dL (13.0-17.5) Hematocrit 29.8% (39.0-53.0) Mean Corpuscular Volume 89fL (79-100) Mean Corpuscular Hemoglobin 28pg (25-35) Mean Corpuscular Hemoglobin Concent 32g/dL (31-37) Red Cell Distribution Width 15.4% (11.5-14.5) Platelet Count 327x10^3/uL (140-400) Neutrophils (%) (Auto) 83% (31-73) Lymphocytes (%) (Auto) 7% (24-48) Monocytes (%) (Auto) 10% (0-9) Eosinophils (%) (Auto) 1% (0-3) Basophils (%) (Auto) 0% (0-3) Neutrophils # (Auto) 15.0x10^3uL (1.8-7.7) Lymphocytes # (Auto) 1.2x10^3/uL (1.0-4.8) Monocytes # (Auto) 1.8x10^3/uL (0.0-1.1) Eosinophils # (Auto) 0.1x10^3/uL (0.0-0.7) Basophils # (Auto) 0.0x10^3/uL (0.0-0.2) Sodium Level 141mmol/L (136-145) Potassium Level 4.5mmol/L (3.5-5.1) Chloride Level 105mmol/L (98-107) Carbon Dioxide Level 31mmol/L (21-32) Anion Gap 5 (6-14) Blood Urea Nitrogen 31mg/dL (8-26) Creatinine 0.9mg/dL (0.7-1.3) Estimated GFR (Cockcroft-Gault) 84.2 BUN/Creatinine Ratio 34 (6-20) Glucose Level 277mg/dL (70-99) Calcium Level 8.4mg/dL (8.5-10.1) Total Bilirubin 0.4mg/dL (0.2-1.0) Aspartate Amino Transf (AST/SGOT) 76U/L (15-37) Alanine Aminotransferase (ALT/SGPT) 128U/L (16-63) Alkaline Phosphatase 126U/L (46-116) Total Protein 6.2g/dL (6.4-8.2) Albumin 1.6g/dL (3.4-5.0) Albumin/Globulin Ratio 0.3 (1.0-1.7) Microbiology 07/28/16 Blood Culture - Final, Complete NO GROWTH AFTER 5 DAYS Medications Current Medications Naloxone HCl 0.4 mg 0.4 mg 1X ONCE IV Last administered on 07/28/16 21:30; Start 07/28/16 at 21:30; Stop 07/28/16 at 21:31; Status DC Sodium Chloride 1,000 ml @ 1,000 mls/hr 1X ONCE IV Last administered on 21:30; Start 07/28/16 at 21:30; Stop 07/28/16 at 22:29; Status DC Ceftriaxone Sodium 1 gm/ Sodium Chloride 50 ml @ 100 mls/hr Q24H IV Last administered on 07/30/16 21:39; Start 07/29/16 at 21:00; Stop 07/31/16 at 17:33; Status DC Ceftriaxone Sodium 50 ml @ 100 mls/hr 1X ONCE IV Last administered on 21:35; Start 07/28/16 at 22:00; Stop 07/28/16 at 22:29; Status DC Heparin Sodium/ Dextrose 500 ml @ 0 mls/hr CONT PRN IV SEE I/O RECORD Last administered on 07/29/16 21:46; Start 07/28/16 at 22:00; Stop 07/30/16 at 07:59; Status DC Heparin Sodium (Porcine) 2,200 unit PRN Q6HRS PRN IV FOR UFH LEVEL LESS THAN 0.2 Last administered on 07/28/16 23:14; Start 07/28/16 at 22:00; Stop 07/30/16 at 08:00; Status DC Ondansetron HCl 4 mg 4 mg PRN Q8HRS PRN IV NAUSEA/VOMITING; Start 07/28/16 at 22 :15; Stop 07/29/16 at 22:14; Status DC Sodium Chloride 1,000 ml @ 125 mls/hr Q8H IV Last administered on 07/29/16 08: 16; Start 07/28/16 at 22:01; Stop 07/29/16 at 13:04; Status DC Metronidazole (FLAGYL 500Mmg PREMIX) 100 ml @ 100 mls/hr Q12HR IV Last administered on 08/05/16 09:16; Start 07/28/16 at 22:30; Stop 08/05/16 at 13:02 ; Status DC Hydralazine HCl (Apresoline) 10 mg PRN Q4HRS PRN IVP ELEVATED BP, SEE COMMENTS ; Start 07/29/16 at 03:00 Insulin Aspart (Novolog) 0-9 UNITS TIDWMEALS SQ Last administered on 07/31/16 17:51; Start 07/29/16 at 08:00; Stop 08/01/16 at 08:36; Status DC Dextrose 12.5 gm PRN Q15MIN PRN IV SEE COMMENTS; Start 07/29/16 at 03:00 Insulin Aspart (Novolog) 8 units 1X ONCE SQ Last administered on 07/29/16 08: 20; Start 07/29/16 at 08:30; Stop 07/29/16 at 08:31; Status DC Morphine Sulfate 2 mg PRN Q2HR PRN IV PAIN Last administered on 08/04/16 14:44 ; Start 07/29/16 at 09:00 Aspirin (Aspirin) 300 mg 1X ONCE MD Last administered on 07/29/16 13:17; Start 07/29/16 at 10:30; Stop 07/29/16 at 10:31; Status DC Heparin Sodium (Porcine) 1,800 unit PRN Q6HRS PRN IV FOR UFH LEVEL LESS THAN 0.2 Last administered on 07/29/16 10:35; Start 07/29/16 at 10:15; Stop 07/30/16 at 08:00; Status DC Metoprolol Tartrate (Lopressor) 5 mg Q6HRS IVP Last administered on 08/04/16 05:34; Start 07/29/16 at 13:00; Stop 08/04/16 at 14:42; Status DC Aspirin 150 mg 150 mg DAILY MD Last administered on 08/04/16 09:03; Start 07/30 at 09:00; Stop 08/04/16 at 14:42; Status DC Sodium Chloride 1,000 ml @ 60 mls/hr [id number] IV Last administered on 07/29/16 13:25; Start 07/29/16 at 13:30; Stop 07/29/16 at 13:31; Status DC Heparin Sodium (Porcine) 5000 unit/Sodium Chloride 505 ml @ 505 mls/hr 1X PERIOP ONCE IRR Last administered on 07/29/16 15:26; Start 07/29/16 at 14:00; Stop 07/29/16 at 14:59; Status DC Cefazolin Sodium/ Sodium Chloride (Ancef/Iv Sodium Chloride 0.9% 500ml Bag) 500 ml @ 500 mls/hr 1X PERIOP ONCE IRR Last administered on 07/29/16 15:26; Start 07/29/16 at 14:00; Stop 07/29/16 at 14:59; Status DC Gelatin (Gelfoam Size 12-7mm) 1 each STK-MED ONCE .ROUTE ; Start 07/29/16 at 13: 54; Stop 07/29/16 at 13:55; Status DC Cellulose 1 each STK-MED ONCE .ROUTE ; Start 07/29/16 at 13:54; Stop 07/29/16 at 13:55; Status DC Iohexol (Omnipaque 300 Mg/ml) 50 ml STK-MED ONCE .ROUTE ; Start 07/29/16 at 13:54 ; Stop 07/29/16 at 13:55; Status DC Gelatin (Gelfoam Size 100) 1 each STK-MED ONCE .ROUTE ; Start 07/29/16 at 13:54 ; Stop 07/29/16 at 13:55; Status DC Papaverine HCl 60 mg STK-MED ONCE .ROUTE ; Start 07/29/16 at 13:54; Stop 07/29/16 at 13:55; Status DC Thrombin 20,000 unit STK-MED ONCE TP ; Start 07/29/16 at 13:54; Stop 07/29/16 at 13:55; Status DC Midazolam HCl (Versed) 2 mg STK-MED ONCE .ROUTE ; Start 07/29/16 at 14:14; Stop 07/29/16 at 14:15; Status DC Fentanyl Citrate (Fentanyl 5ml Vial) 250 mcg STK-MED ONCE .ROUTE ; Start at 14:14; Stop 07/29/16 at 14:15; Status DC Rocuronium [place] 50 mg 50 mg STK-MED ONCE .ROUTE ; Start 07/29/16 at 14:14; Stop 07/29/16 at 14:15; Status DC Propofol (Diprivan) 20 ml @ As Directed STK-MED ONCE IV ; Start 07/29/16 at 14:14 ; Stop 07/29/16 at 14:15; Status DC Dexamethasone Sodium Phosphate (Decadron) 20 mg STK-MED ONCE .ROUTE ; Start 07/29 at 14:14; Stop 07/29/16 at 14:15; Status DC Ondansetron HCl (Zofran) 4 mg STK-MED ONCE .ROUTE ; Start 07/29/16 at 14:14; Stop 07/29/16 at 14:15; Status DC Lidocaine HCl 100 mg STK-MED ONCE .ROUTE ; Start 07/29/16 at 14:15; Stop 07/29/16 at 14:16; Status DC Succinylcholine Chloride (Anectine) 200 mg STK-MED ONCE .ROUTE ; Start 07/29/16 at 14:43; Stop 07/29/16 at 14:44; Status DC Phenylephrine HCl 1 mg STK-MED ONCE IV ; Start 07/29/16 at 15:01; Stop 07/29/16 at 15:02; Status DC Ephedrine Sulfate 50 mg 50 mg STK-MED ONCE .ROUTE ; Start 07/29/16 at 15:28; Stop 07/29/16 at 15:29; Status DC Insulin Human Regular/Sodium Chloride (Novolin R Vial/ Iv Normal Saline 150ml) 151.5 ml @ 7.29 mls/hr 1X ONCE IV ; Start 07/29/16 at 16:45; Stop 07/30/16 at 12 :52; Status DC Info (Anti-Coagulation Monitoring By Pharmacy) 1 each PRN DAILY PRN MC SEE COMMENTS Last administered on 07/29/16t 17:00; Start 07/29/16 at 17:00; Stop at 12:51; Status DC Heparin Sodium (Porcine) 10,000 unit STK-MED ONCE .ROUTE ; Start 07/29/16 at 17: 02; Stop 07/29/16 at 17:03; Status DC Neostigmine Methylsulfate 5 mg STK-MED ONCE .ROUTE ; Start 07/29/16 at 20:52; Stop 07/29/16 at 20:53; Status DC Glycopyrrolate (Robinul) 1 mg STK-MED ONCE .ROUTE ; Start 07/29/16 at 20:52; Stop 07/29/16 at 20:53; Status DC Fentanyl Citrate (Fentanyl 2ml Vial) 50 mcg PRN Q5MIN PRN IV Acute Pain; Start 07/29/16 at 21:15; Stop 07/30/16 at 21:14; Status DC Morphine Sulfate 4 mg PRN Q10MIN PRN IV Moderate Pain; Start 07/29/16 at 21:15; Stop 07/30/16 at 21:14; Status DC Hydromorphone HCl (Dilaudid) 0.4 mg PRN Q10MIN PRN IV Moderate to severe pain; Start 07/29/16 at 21:15; Stop 07/30/16 at 21:14; Status DC Meperidine HCl (Demerol) 12.5 mg PRN Q5MIN PRN IV SHIVERING; Start 07/29/16 at 21:15; Stop 07/30/16 at 00:00; Status DC Prochlorperazine Edisylate (Compazine) 5 mg PRN Q6HRS PRN IV Nausea/Vomiting, 1st Choice; Start 07/29/16 at 21:15; Stop 07/30/16 at 21:14; Status DC Diphenhydramine HCl 12.5 mg 12.5 mg PRN Q2HR PRN IV ITCHING; Start 07/29/16 at 21:15; Stop 07/30/16 at 21:14; Status DC Sodium Chloride (Iv Sodium Chloride 0.45%) 1,000 ml @ 100 mls/hr Q10H IV Last administered on 07/29/16t 21:59; Start 07/29/16 at 22:00; Stop 07/30/16 at 09:41; Status DC Cefazolin Sodium/ Dextrose (Ancef 2gm Premix) 2 gm STK-MED ONCE IV ; Start at 17:35; Stop 07/30/16 at 08:53; Status DC Pantoprazole Sodium 40 mg 40 mg [id number] IVP Last administered on 08/01/16 17:18 ; Start 07/30/16 at 18:00; Stop 08/01/16 at 20:26; Status DC Sodium Chloride 1,000 ml @ 60 mls/hr [id number] IV Last administered on 07/30/16 09:47; Start 07/30/16 at 09:45; Stop 07/30/16 at 12:47; Status DC Cefazolin Sodium/ Sodium Chloride (Ancef/Iv Sodium Chloride 0.9% 500ml Bag) 500 ml @ 500 mls/hr 1X PERIOP ONCE IRR Last administered on 07/31/16 13:47; Start 07/31/16 at 06:00; Stop 07/31/16 at 06:59; Status DC Insulin Detemir (Levemir) 15 units [id number] SQ Last administered on 07/30/16 12: 57; Start 07/30/16 at 13:00; Stop 08/01/16 at 08:36; Status DC Insulin Aspart 12 units 12 units 1X ONCE SQ ; Start 07/30/16 at 12:45; Stop 07/30 at 12:47; Status DC Amino Acids/ Electrolytes/ Dextrose (Clinimix E 4.25%-5% Solution) 1,000 ml @ 80 mls/hr [id number] IV Last administered on 08/02/16 17:50; Start 07/30/16 at 13: 00; Stop 08/03/16 at 03:41; Status DC Ondansetron HCl (Zofran) 4 mg PRN Q6HRS PRN IV Nausea; Start 07/31/16 at 07:00; Stop 08/01/16 at 06:59; Status DC Fentanyl Citrate (Fentanyl 2ml Vial) 25 mcg PRN Q5MIN PRN IV MILD PAIN; Start 07/31/16 at 07:00; Stop 08/01/16 at 06:59; Status DC Fentanyl Citrate (Fentanyl 2ml Vial) 50 mcg PRN Q5MIN PRN IV MODERATE PAIN; Start 07/31/16 at 07:00; Stop 08/01/16 at 06:59; Status DC Morphine Sulfate 1 mg 1 mg PRN Q10MIN PRN IV SEVERE PAIN; Start 07/31/16 at 07: 00; Stop 08/01/16 at 06:59; Status DC Lactated Ringer's (Iv Lactated Ringers) 1,000 ml @ 30 mls/hr Q24H IV Last administered on 07/31/16 15:53; Start 07/31/16 at 07:00; Stop 07/31/16 at 18:59; Status DC Lidocaine HCl 2 ml 1X PRN PRN ID IV START; Start 07/31/16 at 07:00; Stop at 06:59; Status DC Hydromorphone HCl (Dilaudid) 0.5 mg PRN Q10MIN PRN IV SEVERE PAIN, Second choice; Start 07/31/16 at 07:00; Stop 08/01/16 at 06:59; Status DC Prochlorperazine Edisylate (Compazine) 5 mg PACU PRN PRN IV NAUSEA; Start at 07:00; Stop 08/01/16 at 06:59; Status DC Insulin Detemir (Levemir) 10 units QHS SQ Last administered on 07/31/16 21:49; Start 07/31/16 at 21:00; Stop 08/01/16 at 08:36; Status DC Enalaprilat (Vasotec) 1.25 mg Q6HRS IV ; Start 07/31/16 at 12:00; Stop 07/31/16 at 12:00; Status DC Enalaprilat (Vasotec) 0.625 mg Q6HRS IV Last administered on 08/04/16 05:35; Start 07/31/16 at 12:00; Stop 08/04/16 at 14:42; Status DC Fentanyl Citrate (Fentanyl 2ml Vial) 100 mcg STK-MED ONCE .ROUTE ; Start at 12:49; Stop 07/31/16 at 12:50; Status DC Rocuronium [place] (Zemuron) 50 mg STK-MED ONCE .ROUTE ; Start 07/31/16 at 12:49 ; Stop 07/31/16 at 12:50; Status DC Lidocaine HCl 100 mg 100 mg STK-MED ONCE .ROUTE ; Start 07/31/16 at 13:17; Stop 07/31/16 at 13:18; Status DC Propofol (Diprivan) 20 ml @ As Directed STK-MED ONCE IV ; Start 07/31/16 at 13:17 ; Stop 07/31/16 at 13:18; Status DC Succinylcholine Chloride (Anectine) 200 mg STK-MED ONCE .ROUTE ; Start 07/31/16 at 13:30; Stop 07/31/16 at 13:31; Status DC Dexamethasone Sodium Phosphate (Decadron) 20 mg STK-MED ONCE .ROUTE ; Start 07/31 at 13:42; Stop 07/31/16 at 13:43; Status DC Ondansetron HCl (Zofran) 4 mg STK-MED ONCE .ROUTE ; Start 07/31/16 at 13:42; Stop 07/31/16 at 13:43; Status DC Phenylephrine HCl 1 mg STK-MED ONCE IV ; Start 07/31/16 at 13:47; Stop 07/31/16 at 13:48; Status DC Fentanyl Citrate (Fentanyl 2ml Vial) 100 mcg STK-MED ONCE .ROUTE ; Start at 14:26; Stop 07/31/16 at 14:27; Status DC Sevoflurane (Ultane) 60 ml STK-MED ONCE IH ; Start 07/31/16 at 15:13; Stop at 15:14; Status DC Insulin Aspart (Novolog Vial) 3 unit 1X ONCE SQ ; Start 07/31/16 at 15:45; Stop 07/31/16 at 15:45; Status DC Insulin Aspart (Novolog) 3 units 1X ONCE SQ ; Start 07/31/16 at 15:45; Stop 07/31 at 15:46; Status Cancel Insulin Aspart (Novolog Vial) 100 unit STK-MED ONCE SQ ; Start 07/31/16 at 15:41 ; Stop 07/31/16 at 15:42; Status DC Insulin Aspart (Novolog Vial) 3 unit 1X ONCE SQ ; Start 07/31/16 at 16:00; Stop 07/31/16 at 16:01; Status Cancel Insulin Aspart 3 unit 3 unit 1X ONCE SQ Last administered on 07/31/16t 15:57; Start 07/31/16 at 16:00; Stop 07/31/16 at 16:01; Status DC Ceftriaxone Sodium/Sodium Chloride (Rocephin/Iv Sodium Chloride 0.9% 50ml) 50 ml @ 100 mls/hr Q24H IV Last administered on 08/05/16 14:00; Start 08/01/16 at 14:00 Insulin Aspart (Novolog) 0-9 UNITS Q6HRS SQ Last administered on 08/03/16 18: 14; Start 08/01/16 at 12:00; Stop 08/04/16 at 12:15; Status DC Insulin Detemir (Levemir) 30 units QHS SQ Last administered on 08/05/16 20:37 ; Start 08/01/16 at 21:00 Pantoprazole Sodium 40 mg 40 mg BID IVP Last administered on 08/06/16 10:19; Start 08/01/16 at 21:00 Amino Acids/ Electrolytes 1,000 ml @ 80 mls/hr [id number] IV Last administered on 08/03/16 05:09; Start 08/03/16 at 03:41; Stop 08/03/16 at 17:24; Status DC Amino Acids/ Electrolytes (Clinimix E 2.75%-5% Solution) 2,000 ml @ 80 mls/hr Q24H IV Last administered on 08/05/16 17:59; Start 08/03/16 at 17:24 Insulin Aspart (Novolog) 0-9 UNITS TIDWMEALS SQ Last administered on 08/06/16 10:28; Start 08/04/16 at 12:11 Aspirin (Ecotrin) 81 mg [id number] PO Last administered on 08/05/16 09:14; Start 08/05/16 at 08:00; Stop 08/05/16 at 13:50; Status DC Carvedilol (Coreg) 6.25 mg BIDWMEALS PO Last administered on 08/05/16 09:15; Start 08/04/16 at 17:00; Stop 08/05/16 at 13:50; Status DC Lisinopril (Prinivil) 5 mg HS PO Last administered on 08/04/16 21:06; Start at 21:00; Stop 08/05/16 at 13:50; Status DC Cefpodoxime Proxetil (Vantin) 200 mg BID PO ; Start 08/05/16 at 14:00; Stop at 14:08; Status DC Metronidazole (Flagyl) 500 mg BID PO ; Start 08/05/16 at 21:00; Status Cancel Furosemide (Lasix) 20 mg 1X ONCE IVP Last administered on 08/05/16 13:54; Start 08/05/16 at 13:15; Stop 08/05/16 at 13:16; Status DC Aspirin (Aspirin) 300 mg DAILY MD Last administered on 08/06/16 10:20; Start 08/06/16 at 09:00 Metoprolol Tartrate (Lopressor) 5 mg Q6HRS IVP Last administered on 08/06/16 06:16; Start 08/05/16 at 18:00 Enalaprilat (Vasotec) 0.625 mg Q6H IV Last administered on 08/06/16 10:23; Start 08/05/16 at 16:00 Ondansetron HCl 4 mg 4 mg PRN Q6HRS PRN IV NAUSEA/VOMITING Last administered on 08/06/16 10:16; Start 08/05/16 at 17:15 Metronidazole (FLAGYL 500Mmg PREMIX) 100 ml @ 100 mls/hr Q12HR IV Last administered on 08/06/16 10:19; Start 08/05/16 at 22:00 Active Scripts Active Reported Hydrocodone-Apap 5-325 (Hydrocodone Bit/Acetaminophen) 1 Each Tablet 1 Tab PO Q4HRS PRN Vitals/I & O Vital Sign - Last 24 Hours 08/05/16 08/05/16 08/05/16 08/05/16 14:38 15:58 17:59 18:18 Temp 98.6 97.8 98.6 97.8 Pulse 69 76 76 61 Resp 19 20 B/P 154/75 136/55 145/69 142/70 Pulse Ox 93 97 O2 Delivery Room Air Nasal Cannula 08/05/16 08/05/16 08/05/16 08/06/16 20:00 20:35 22:40 00:37 Temp 97.8 97.8 Pulse 61 74 65 B/P 142/70 117/60 138/55 Pulse Ox 96 O2 Delivery Nasal Cannula Nasal Cannula O2 Flow Rate 2.0 2.0 08/06/16 08/06/16 08/06/16 08/06/16 03:15 04:22 06:16 07:00 Temp 97.8 98.2 97.8 98.2 Pulse 60 60 65 59 Resp 22 17 B/P 125/59 125/59 144/57 95/57 Pulse Ox 97 97 O2 Delivery Nasal Cannula Nasal Cannula O2 Flow Rate 2.0 2.0 08/06/16 08/06/16 08/06/16 08:00 10:23 11:00 Temp 98.7 98.7 Pulse 70 Resp 18 B/P 147/72 147/72 Pulse Ox 96 O2 Delivery Nasal Cannula Nasal Cannula O2 Flow Rate 2.0 2.0 Intake and Output 08/05/16 08/05/16 08/06/16 15:00 23:00 07:00 Intake Total 120 ml 1380 ml Output Total 1000 ml 1450 ml Balance 120 ml -1000 ml -70 ml SHERRY ALCANTARA MD Aug 06, 2016 12:09
[2016-08-06] MEDS: CEFTRIAXONE SODIUM 1 GM in IV NORMAL SALINE 50ML 50 ML IV SCH (13:14)
--- NOTE | 2016-08-06 13:55 | PATHOLOGY ---
PATHOLOGY REPORT * * * * * * * * FINAL DIAGNOSIS: Left lower extremity above knee amputation: - Stapled incision of medial aspect of leg with acute inflammation. - Severe calcific atherosclerosis of anterior tibial artery. 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 - Calcific atherosclerosis and thrombosis of posterior tibial artery. - Skin and subcutaneous tissue of proximal amputation margin viable. (JPM:[facility]valentina; d/t: 08/04/16) REPORT ELECTRONICALLY SIGNED BY: Keaton Claros M.D. DATE/TIME: 08/06/2016 13:54 * * * * * * * * GROSS PATHOLOGY: The specimen is received fresh in a red biohazard bag and labeled "Vaughn Wolf and left leg above-knee amputation." Received is a left upper extremity specimen amputated through the femur with a smooth resection margin. The specimen measures 24.3 cm from heel to toe, 51.0 cm from heel to soft tissue resection margin, and 57.0 cm from heel to femoral bone resection margin. The skin, soft tissue, and bone resection margins are grossly viable and unremarkable. Extending from the soft tissue margin is a blood tinged, white-wolf, and tubular orthopedic component, which runs alongside the popliteal and posterior tibial vasculature. The lumen of the orthopedic component is filled with blood. A digital image is taken. The skin is pink-wolf, wrinkled, and displays a 2.2 x 0.9 cm red-pink, poorly circumscribed, and granular lesion on the anterior aspect of the leg. The lesion does not grossly extend to or involve the underlying bone. The medial aspect of the leg displays a 10.2 x 0.7 cm pink-wolf and partially healed linear scar. All 5 digits with thickened, dark yellow nails are present. Sectioning of the popliteal, anterior tibial, and posterior tibial vasculature reveals dilated, patent, and slightly calcified lumens. Sectioning through posterior vasculature reveals blue sutures. Solution Consultant sections are segment as follows: A1 longitudinal section of skin and soft tissue margin (inked) A2 leg lesion, representatively submitted A3 epidermal scar A4 anterior tibial vasculature, following decalcification A5 popliteal vasculature A6 posterior tibial vasculature, following decalcification (TTL; 08/01/2016) INITIAL CPT CODE(S): A; 72403, 99020 Professional services performed by [facility] at [address] [address] Technical services performed by [facility] at [address] [place] [address], [address], [place] [address]. SPECIMEN(S) RECEIVED: A.Left leg above the knee amputation CLINICAL HISTORY: Vascular insufficiency PATIENT: VAUGHN WOLF /AGE: 2 1950 (Age: 66) PATIENT #: [id number] ALT CASE #: SPECIMEN COLLECTION DATE: 07/31/2016 SPECIMEN RECEIVED DATE: 07/31/2016 [facility] - [address] [place] [address] - PHONE: [phone] * * * END OF REPORT * * *
[2016-08-06 15:00] VITALS: BP 133/53
--- NOTE | 2016-08-06 16:41 | RAD ---
Indication: Nausea and vomiting. Technique: Ultrasound abdomen complete was performed. Comparison is a CT from July 28, 2016. Findings: Visualized pancreas is unremarkable, duct mildly prominent at 3 mm. Aorta and IVC are within normal limits although evaluation is limited by bowel gas. Area of relative decreased echogenicity within the right hepatic lobe corresponds to the area of concern on prior CT. This could represent an area of focal fatty sparing in a background of mild fatty infiltration of the liver. Given appearance on prior CT including within the spleen, infarct is a consideration although hepatic infarcts are relatively rare. Gallbladder is within normal limits. Common bile duct measures 4 mm. Kidneys are without hydronephrosis or mass. Heterogeneous echogenicity of the spleen corresponds to the areas of concern on the prior CT, again concerning for splenic infarcts. Impression: 1. Area of relative decreased echogenicity within the liver parenchyma, non masslike, could represent focal fatty sparing. Given appearance on prior CT, an infarct is a consideration as well. 2. Heterogeneous appearance of the spleen corresponds to the area of concern on prior CT, also could represent area of infarct.
[2016-08-06 18:57] VITALS: BP 134/48
[2016-08-06] MEDS: INSULIN DETEMIR 300 UNITS/3 ML INSULN.PEN. SQ SCH (21:18)
[2016-08-06 23:21] VITALS: BP 129/48
[2016-08-07] MEDS: AA 2.75%/CALCIUM/LYTES/D5W 2,000 ML IV SCH (00:21)
[2016-08-07] MEDS: METOPROLOL TARTRATE 5 MG/5 ML VIAL. IVP SCH ×4 (00:24→18:33)
[2016-08-07 03:38] VITALS: BP 136/59
[2016-08-07] MEDS: ENALAPRILAT 1.25 MG/ML VIAL. IV SCH ×4 (04:24→21:22)
[2016-08-07 07:58] VITALS: BP 136/55
[2016-08-07] MEDS: INSULIN ASPART 300 UNITS/3 ML INSULN.PEN SQ SCH ×3 (08:00→17:00)
[2016-08-07] MEDS: METRONIDAZOLE 500mg PREMIX 100 ML IV SCH ×2 (08:53→21:17)
[2016-08-07] MEDS: PANTOPRAZOLE IV PUSH 40 MG VIAL. IVP SCH ×2 (08:54→21:18)
[2016-08-07] MEDS: ASPIRIN 300 MG SUPP.RECT PR SCH (08:54)
[2016-08-07] MEDS: DEXTROSE 50% 25 GM / 50ML DISP.SYRIN. IV PRN (10:43)
[2016-08-07 11:03] VITALS: BP 102/52
--- NOTE | 2016-08-07 11:05 | PDOC ---
PROGRESS NOTES Chief Complaint Chief Complaint A/P s/p LEFt AKA () for Severe PVD Acute metabolic encephalopathy not much changed. Dm 1 with Hyperglycemia. NSTEMI, med management now Vasomotor nephropathy, Diabetes with severe chronic atherosclerosis, multilevel. 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 iv diuresis prn not able to eat, will start Dobbhoff and Tubehead. PPN for now Nutritional consult SSI AC and HS for hyperglycemia continue current abx for 1 day, Leucocytosis doesn't appear to be infectious will consult infectious disease recommendations. Follow vascular recommendations. no family available for answering question, unknown baseline status. Prognosis guarded. History of Present Illness History of Present Illness more awake no vomiting sitting in chair. Vitals Vitals Vital Signs Date Time Temp Pulse Resp B/P Pulse Ox O2 Delivery O2 Flow Rate FiO2 08/07/16 11:03 98.3 72 19 102/52 95 Nasal Cannula 98.3 08/07/16 08:00 2.0 Physical Exam General: Alert, No acute distress, Other (responding but talking to PT this AM ) Heart: Regular rate, Normal S1, Normal S2, No murmurs, Other (2/6 systolic murmur to LLS border) Lungs: Clear Abdomen: Normal bowel sounds, Soft, No tenderness Extremities: Other Skin: No breakdown, Other Labs LABS Laboratory Tests Test 08/06/16 12:32 08/06/16 17:07 08/06/16 20:43 08/07/16 07:39 Glucose (Fingerstick) 230mg/dL (70-99) 164mg/dL (70-99) 163mg/dL (70-99) 85mg/dL (70-99) Test 08/07/16 10:38 08/07/16 10:56 Glucose (Fingerstick) 60mg/dL (70-99) 144mg/dL (70-99) Assessment and Plan Assessmemt and Plan Problems Medical Problems: (1) Altered mental status Status: Acute (2) Dehydration Status: Acute (3) NSTEMI (non-ST elevated myocardial infarction) Status: Acute Problems: Comment Review of Relevant I have reviewed the following items chris (where applicable) has been applied. Labs Laboratory Tests Test 08/05/16 16:37 08/05/16 20:33 08/06/16 06:15 08/06/16 07:38 Glucose (Fingerstick) 169mg/dL (70-99) 244mg/dL (70-99) 262mg/dL (70-99) White Blood Count 18.2x10^3/uL (4.0-11.0) Red Blood Count 3.35x10^6/uL (4.30-5.70) Hemoglobin 9.4g/dL (13.0-17.5) Hematocrit 29.8% (39.0-53.0) Mean Corpuscular Volume 89fL (79-100) Mean Corpuscular Hemoglobin 28pg (25-35) Mean Corpuscular Hemoglobin Concent 32g/dL (31-37) Red Cell Distribution Width 15.4% (11.5-14.5) Platelet Count 327x10^3/uL (140-400) Neutrophils (%) (Auto) 83% (31-73) Lymphocytes (%) (Auto) 7% (24-48) Monocytes (%) (Auto) 10% (0-9) Eosinophils (%) (Auto) 1% (0-3) Basophils (%) (Auto) 0% (0-3) Neutrophils # (Auto) 15.0x10^3uL (1.8-7.7) Lymphocytes # (Auto) 1.2x10^3/uL (1.0-4.8) Monocytes # (Auto) 1.8x10^3/uL (0.0-1.1) Eosinophils # (Auto) 0.1x10^3/uL (0.0-0.7) Basophils # (Auto) 0.0x10^3/uL (0.0-0.2) Sodium Level 141mmol/L (136-145) Potassium Level 4.5mmol/L (3.5-5.1) Chloride Level 105mmol/L (98-107) Carbon Dioxide Level 31mmol/L (21-32) Anion Gap 5 (6-14) Blood Urea Nitrogen 31mg/dL (8-26) Creatinine 0.9mg/dL (0.7-1.3) Estimated GFR (Cockcroft-Gault) 84.2 BUN/Creatinine Ratio 34 (6-20) Glucose Level 277mg/dL (70-99) Calcium Level 8.4mg/dL (8.5-10.1) Total Bilirubin 0.4mg/dL (0.2-1.0) Aspartate Amino Transf (AST/SGOT) 76U/L (15-37) Alanine Aminotransferase (ALT/SGPT) 128U/L (16-63) Alkaline Phosphatase 126U/L (46-116) Total Protein 6.2g/dL (6.4-8.2) Albumin 1.6g/dL (3.4-5.0) Albumin/Globulin Ratio 0.3 (1.0-1.7) Test 08/06/16 12:32 08/06/16 17:07 08/06/16 20:43 08/07/16 07:39 Glucose (Fingerstick) 230mg/dL (70-99) 164mg/dL (70-99) 163mg/dL (70-99) 85mg/dL (70-99) Test 08/07/16 10:38 08/07/16 10:56 Glucose (Fingerstick) 60mg/dL (70-99) 144mg/dL (70-99) Laboratory Tests Test 08/06/16 12:32 08/06/16 17:07 08/06/16 20:43 08/07/16 07:39 Glucose (Fingerstick) 230mg/dL (70-99) 164mg/dL (70-99) 163mg/dL (70-99) 85mg/dL (70-99) Test 08/07/16 10:38 08/07/16 10:56 Glucose (Fingerstick) 60mg/dL (70-99) 144mg/dL (70-99) Microbiology 07/28/16 Blood Culture - Final, Complete NO GROWTH AFTER 5 DAYS Medications Current Medications Naloxone HCl 0.4 mg 0.4 mg 1X ONCE IV Last administered on 07/28/16 21:30; Start 07/28/16 at 21:30; Stop 07/28/16 at 21:31; Status DC Sodium Chloride 1,000 ml @ 1,000 mls/hr 1X ONCE IV Last administered on 21:30; Start 07/28/16 at 21:30; Stop 07/28/16 at 22:29; Status DC Ceftriaxone Sodium 1 gm/ Sodium Chloride 50 ml @ 100 mls/hr Q24H IV Last administered on 07/30/16 21:39; Start 07/29/16 at 21:00; Stop 07/31/16 at 17:33; Status DC Ceftriaxone Sodium 50 ml @ 100 mls/hr 1X ONCE IV Last administered on 21:35; Start 07/28/16 at 22:00; Stop 07/28/16 at 22:29; Status DC Heparin Sodium/ Dextrose 500 ml @ 0 mls/hr CONT PRN IV SEE I/O RECORD Last administered on 07/29/16 21:46; Start 07/28/16 at 22:00; Stop 07/30/16 at 07:59; Status DC Heparin Sodium (Porcine) 2,200 unit PRN Q6HRS PRN IV FOR UFH LEVEL LESS THAN 0.2 Last administered on 07/28/16 23:14; Start 07/28/16 at 22:00; Stop 07/30/16 at 08:00; Status DC Ondansetron HCl 4 mg 4 mg PRN Q8HRS PRN IV NAUSEA/VOMITING; Start 07/28/16 at 22 :15; Stop 07/29/16 at 22:14; Status DC Sodium Chloride 1,000 ml @ 125 mls/hr Q8H IV Last administered on 07/29/16 08: 16; Start 07/28/16 at 22:01; Stop 07/29/16 at 13:04; Status DC Metronidazole (FLAGYL 500Mmg PREMIX) 100 ml @ 100 mls/hr Q12HR IV Last administered on 08/05/16 09:16; Start 07/28/16 at 22:30; Stop 08/05/16 at 13:02 ; Status DC Hydralazine HCl (Apresoline) 10 mg PRN Q4HRS PRN IVP ELEVATED BP, SEE COMMENTS ; Start 07/29/16 at 03:00 Insulin Aspart (Novolog) 0-9 UNITS TIDWMEALS SQ Last administered on 07/31/16 17:51; Start 07/29/16 at 08:00; Stop 08/01/16 at 08:36; Status DC Dextrose 12.5 gm PRN Q15MIN PRN IV SEE COMMENTS Last administered on 08/07/16 10:43; Start 07/29/16 at 03:00 Insulin Aspart (Novolog) 8 units 1X ONCE SQ Last administered on 07/29/16 08: 20; Start 07/29/16 at 08:30; Stop 07/29/16 at 08:31; Status DC Morphine Sulfate 2 mg PRN Q2HR PRN IV PAIN Last administered on 08/04/16 14:44 ; Start 07/29/16 at 09:00 Aspirin (Aspirin) 300 mg 1X ONCE LA Last administered on 07/29/16 13:17; Start 07/29/16 at 10:30; Stop 07/29/16 at 10:31; Status DC Heparin Sodium (Porcine) 1,800 unit PRN Q6HRS PRN IV FOR UFH LEVEL LESS THAN 0.2 Last administered on 07/29/16 10:35; Start 07/29/16 at 10:15; Stop 07/30/16 at 08:00; Status DC Metoprolol Tartrate (Lopressor) 5 mg Q6HRS IVP Last administered on 08/04/16 05:34; Start 07/29/16 at 13:00; Stop 08/04/16 at 14:42; Status DC Aspirin 150 mg 150 mg DAILY LA Last administered on 08/04/16 09:03; Start 07/30 at 09:00; Stop 08/04/16 at 14:42; Status DC Sodium Chloride 1,000 ml @ 60 mls/hr [id number] IV Last administered on 07/29/16 13:25; Start 07/29/16 at 13:30; Stop 07/29/16 at 13:31; Status DC Heparin Sodium (Porcine) 5000 unit/Sodium Chloride 505 ml @ 505 mls/hr 1X PERIOP ONCE IRR Last administered on 07/29/16 15:26; Start 07/29/16 at 14:00; Stop 07/29/16 at 14:59; Status DC Cefazolin Sodium/ Sodium Chloride (Ancef/Iv Sodium Chloride 0.9% 500ml Bag) 500 ml @ 500 mls/hr 1X PERIOP ONCE IRR Last administered on 07/29/16 15:26; Start 07/29/16 at 14:00; Stop 07/29/16 at 14:59; Status DC Gelatin (Gelfoam Size 12-7mm) 1 each STK-MED ONCE .ROUTE ; Start 07/29/16 at 13: 54; Stop 07/29/16 at 13:55; Status DC Cellulose 1 each STK-MED ONCE .ROUTE ; Start 07/29/16 at 13:54; Stop 07/29/16 at 13:55; Status DC Iohexol (Omnipaque 300 Mg/ml) 50 ml STK-MED ONCE .ROUTE ; Start 07/29/16 at 13:54 ; Stop 07/29/16 at 13:55; Status DC Gelatin (Gelfoam Size 100) 1 each STK-MED ONCE .ROUTE ; Start 07/29/16 at 13:54 ; Stop 07/29/16 at 13:55; Status DC Papaverine HCl 60 mg STK-MED ONCE .ROUTE ; Start 07/29/16 at 13:54; Stop 07/29/16 at 13:55; Status DC Thrombin 20,000 unit STK-MED ONCE TP ; Start 07/29/16 at 13:54; Stop 07/29/16 at 13:55; Status DC Midazolam HCl (Versed) 2 mg STK-MED ONCE .ROUTE ; Start 07/29/16 at 14:14; Stop 07/29/16 at 14:15; Status DC Fentanyl Citrate (Fentanyl 5ml Vial) 250 mcg STK-MED ONCE .ROUTE ; Start at 14:14; Stop 07/29/16 at 14:15; Status DC Rocuronium Montrose 50 mg 50 mg STK-MED ONCE .ROUTE ; Start 07/29/16 at 14:14; Stop 07/29/16 at 14:15; Status DC Propofol (Diprivan) 20 ml @ As Directed STK-MED ONCE IV ; Start 07/29/16 at 14:14 ; Stop 07/29/16 at 14:15; Status DC Dexamethasone Sodium Phosphate (Decadron) 20 mg STK-MED ONCE .ROUTE ; Start 07/29 at 14:14; Stop 07/29/16 at 14:15; Status DC Ondansetron HCl (Zofran) 4 mg STK-MED ONCE .ROUTE ; Start 07/29/16 at 14:14; Stop 07/29/16 at 14:15; Status DC Lidocaine HCl 100 mg STK-MED ONCE .ROUTE ; Start 07/29/16 at 14:15; Stop 07/29/16 at 14:16; Status DC Succinylcholine Chloride (Anectine) 200 mg STK-MED ONCE .ROUTE ; Start 07/29/16 at 14:43; Stop 07/29/16 at 14:44; Status DC Phenylephrine HCl 1 mg STK-MED ONCE IV ; Start 07/29/16 at 15:01; Stop 07/29/16 at 15:02; Status DC Ephedrine Sulfate 50 mg 50 mg STK-MED ONCE .ROUTE ; Start 07/29/16 at 15:28; Stop 07/29/16 at 15:29; Status DC Insulin Human Regular/Sodium Chloride (Novolin R Vial/ Iv Normal Saline 150ml) 151.5 ml @ 7.29 mls/hr 1X ONCE IV ; Start 07/29/16 at 16:45; Stop 07/30/16 at 12 :52; Status DC Info (Anti-Coagulation Monitoring By Pharmacy) 1 each PRN DAILY PRN MC SEE COMMENTS Last administered on 07/29/16t 17:00; Start 07/29/16 at 17:00; Stop at 12:51; Status DC Heparin Sodium (Porcine) 10,000 unit STK-MED ONCE .ROUTE ; Start 07/29/16 at 17: 02; Stop 07/29/16 at 17:03; Status DC Neostigmine Methylsulfate 5 mg STK-MED ONCE .ROUTE ; Start 07/29/16 at 20:52; Stop 07/29/16 at 20:53; Status DC Glycopyrrolate (Robinul) 1 mg STK-MED ONCE .ROUTE ; Start 07/29/16 at 20:52; Stop 07/29/16 at 20:53; Status DC Fentanyl Citrate (Fentanyl 2ml Vial) 50 mcg PRN Q5MIN PRN IV Acute Pain; Start 07/29/16 at 21:15; Stop 07/30/16 at 21:14; Status DC Morphine Sulfate 4 mg PRN Q10MIN PRN IV Moderate Pain; Start 07/29/16 at 21:15; Stop 07/30/16 at 21:14; Status DC Hydromorphone HCl (Dilaudid) 0.4 mg PRN Q10MIN PRN IV Moderate to severe pain; Start 07/29/16 at 21:15; Stop 07/30/16 at 21:14; Status DC Meperidine HCl (Demerol) 12.5 mg PRN Q5MIN PRN IV SHIVERING; Start 07/29/16 at 21:15; Stop 07/30/16 at 00:00; Status DC Prochlorperazine Edisylate (Compazine) 5 mg PRN Q6HRS PRN IV Nausea/Vomiting, 1st Choice; Start 07/29/16 at 21:15; Stop 07/30/16 at 21:14; Status DC Diphenhydramine HCl 12.5 mg 12.5 mg PRN Q2HR PRN IV ITCHING; Start 07/29/16 at 21:15; Stop 07/30/16 at 21:14; Status DC Sodium Chloride (Iv Sodium Chloride 0.45%) 1,000 ml @ 100 mls/hr Q10H IV Last administered on 07/29/16 21:59; Start 07/29/16 at 22:00; Stop 07/30/16 at 09:41; Status DC Cefazolin Sodium/ Dextrose (Ancef 2gm Premix) 2 gm STK-MED ONCE IV ; Start at 17:35; Stop 07/30/16 at 08:53; Status DC Pantoprazole Sodium 40 mg 40 mg [id number] IVP Last administered on 08/01/16 17:18 ; Start 07/30/16 at 18:00; Stop 08/01/16 at 20:26; Status DC Sodium Chloride 1,000 ml @ 60 mls/hr [id number] IV Last administered on 07/30/16 09:47; Start 07/30/16 at 09:45; Stop 07/30/16 at 12:47; Status DC Cefazolin Sodium/ Sodium Chloride (Ancef/Iv Sodium Chloride 0.9% 500ml Bag) 500 ml @ 500 mls/hr 1X PERIOP ONCE IRR Last administered on 07/31/16 13:47; Start 07/31/16 at 06:00; Stop 07/31/16 at 06:59; Status DC Insulin Detemir (Levemir) 15 units [id number] SQ Last administered on 07/30/16 12: 57; Start 07/30/16 at 13:00; Stop 08/01/16 at 08:36; Status DC Insulin Aspart 12 units 12 units 1X ONCE SQ ; Start 07/30/16 at 12:45; Stop 07/30 at 12:47; Status DC Amino Acids/ Electrolytes/ Dextrose (Clinimix E 4.25%-5% Solution) 1,000 ml @ 80 mls/hr [id number] IV Last administered on 08/02/16 17:50; Start 07/30/16 at 13: 00; Stop 08/03/16 at 03:41; Status DC Ondansetron HCl (Zofran) 4 mg PRN Q6HRS PRN IV Nausea; Start 07/31/16 at 07:00; Stop 08/01/16 at 06:59; Status DC Fentanyl Citrate (Fentanyl 2ml Vial) 25 mcg PRN Q5MIN PRN IV MILD PAIN; Start 07/31/16 at 07:00; Stop 08/01/16 at 06:59; Status DC Fentanyl Citrate (Fentanyl 2ml Vial) 50 mcg PRN Q5MIN PRN IV MODERATE PAIN; Start 07/31/16 at 07:00; Stop 08/01/16 at 06:59; Status DC Morphine Sulfate 1 mg 1 mg PRN Q10MIN PRN IV SEVERE PAIN; Start 07/31/16 at 07: 00; Stop 08/01/16 at 06:59; Status DC Lactated Ringer's (Iv Lactated Ringers) 1,000 ml @ 30 mls/hr Q24H IV Last administered on 07/31/16 15:53; Start 07/31/16 at 07:00; Stop 07/31/16 at 18:59; Status DC Lidocaine HCl 2 ml 1X PRN PRN ID IV START; Start 07/31/16 at 07:00; Stop at 06:59; Status DC Hydromorphone HCl (Dilaudid) 0.5 mg PRN Q10MIN PRN IV SEVERE PAIN, Second choice; Start 07/31/16 at 07:00; Stop 08/01/16 at 06:59; Status DC Prochlorperazine Edisylate (Compazine) 5 mg PACU PRN PRN IV NAUSEA; Start at 07:00; Stop 08/01/16 at 06:59; Status DC Insulin Detemir (Levemir) 10 units QHS SQ Last administered on 3/9/17at 21:49; Start 07/31/16 at 21:00; Stop 08/01/16 at 08:36; Status DC Enalaprilat (Vasotec) 1.25 mg Q6HRS IV ; Start 07/31/16 at 12:00; Stop 07/31/16 at 12:00; Status DC Enalaprilat (Vasotec) 0.625 mg Q6HRS IV Last administered on 08/04/16t 05:35; Start 07/31/16 at 12:00; Stop 08/04/16 at 14:42; Status DC Fentanyl Citrate (Fentanyl 2ml Vial) 100 mcg STK-MED ONCE .ROUTE ; Start at 12:49; Stop 07/31/16 at 12:50; Status DC Rocuronium Montrose (Zemuron) 50 mg STK-MED ONCE .ROUTE ; Start 07/31/16 at 12:49 ; Stop 07/31/16 at 12:50; Status DC Lidocaine HCl 100 mg 100 mg STK-MED ONCE .ROUTE ; Start 07/31/16 at 13:17; Stop 07/31/16 at 13:18; Status DC Propofol (Diprivan) 20 ml @ As Directed STK-MED ONCE IV ; Start 07/31/16 at 13:17 ; Stop 07/31/16 at 13:18; Status DC Succinylcholine Chloride (Anectine) 200 mg STK-MED ONCE .ROUTE ; Start 07/31/16 at 13:30; Stop 07/31/16 at 13:31; Status DC Dexamethasone Sodium Phosphate (Decadron) 20 mg STK-MED ONCE .ROUTE ; Start 07/31 at 13:42; Stop 07/31/16 at 13:43; Status DC Ondansetron HCl (Zofran) 4 mg STK-MED ONCE .ROUTE ; Start 07/31/16 at 13:42; Stop 07/31/16 at 13:43; Status DC Phenylephrine HCl 1 mg STK-MED ONCE IV ; Start 07/31/16 at 13:47; Stop 07/31/16 at 13:48; Status DC Fentanyl Citrate (Fentanyl 2ml Vial) 100 mcg STK-MED ONCE .ROUTE ; Start at 14:26; Stop 07/31/16 at 14:27; Status DC Sevoflurane (Ultane) 60 ml STK-MED ONCE IH ; Start 07/31/16 at 15:13; Stop at 15:14; Status DC Insulin Aspart (Novolog Vial) 3 unit 1X ONCE SQ ; Start 07/31/16 at 15:45; Stop 07/31/16 at 15:45; Status DC Insulin Aspart (Novolog) 3 units 1X ONCE SQ ; Start 07/31/16 at 15:45; Stop 07/31 at 15:46; Status Cancel Insulin Aspart (Novolog Vial) 100 unit STK-MED ONCE SQ ; Start 07/31/16 at 15:41 ; Stop 07/31/16 at 15:42; Status DC Insulin Aspart (Novolog Vial) 3 unit 1X ONCE SQ ; Start 07/31/16 at 16:00; Stop 07/31/16 at 16:01; Status Cancel Insulin Aspart 3 unit 3 unit 1X ONCE SQ Last administered on 07/31/16 15:57; Start 07/31/16 at 16:00; Stop 07/31/16 at 16:01; Status DC Ceftriaxone Sodium/Sodium Chloride (Rocephin/Iv Sodium Chloride 0.9% 50ml) 50 ml @ 100 mls/hr Q24H IV Last administered on 08/06/16 13:14; Start 08/01/16 at 14:00 Insulin Aspart (Novolog) 0-9 UNITS Q6HRS SQ Last administered on 08/03/16 18: 14; Start 08/01/16 at 12:00; Stop 08/04/16 at 12:15; Status DC Insulin Detemir (Levemir) 30 units QHS SQ Last administered on 08/06/16 21:18 ; Start 08/01/16 at 21:00 Pantoprazole Sodium 40 mg 40 mg BID IVP Last administered on 08/07/16 08:54; Start 08/01/16 at 21:00 Amino Acids/ Electrolytes 1,000 ml @ 80 mls/hr [id number] IV Last administered on 08/03/16 05:09; Start 08/03/16 at 03:41; Stop 08/03/16 at 17:24; Status DC Amino Acids/ Electrolytes (Clinimix E 2.75%-5% Solution) 2,000 ml @ 80 mls/hr Q24H IV Last administered on 08/07/16 00:21; Start 08/03/16 at 17:24 Insulin Aspart (Novolog) 0-9 UNITS TIDWMEALS SQ Last administered on 08/06/16 13:17; Start 08/04/16 at 12:11 Aspirin (Ecotrin) 81 mg [id number] PO Last administered on 08/05/16 09:14; Start 08/05/16 at 08:00; Stop 08/05/16 at 13:50; Status DC Carvedilol (Coreg) 6.25 mg BIDWMEALS PO Last administered on 08/05/16 09:15; Start 08/04/16 at 17:00; Stop 08/05/16 at 13:50; Status DC Lisinopril (Prinivil) 5 mg HS PO Last administered on 08/04/16 21:06; Start at 21:00; Stop 08/05/16 at 13:50; Status DC Cefpodoxime Proxetil (Vantin) 200 mg BID PO ; Start 08/05/16 at 14:00; Stop at 14:08; Status DC Metronidazole (Flagyl) 500 mg BID PO ; Start 08/05/16 at 21:00; Status Cancel Furosemide (Lasix) 20 mg 1X ONCE IVP Last administered on 08/05/16 13:54; Start 08/05/16 at 13:15; Stop 08/05/16 at 13:16; Status DC Aspirin (Aspirin) 300 mg DAILY LA Last administered on 08/07/16 08:54; Start 08/06/16 at 09:00 Metoprolol Tartrate (Lopressor) 5 mg Q6HRS IVP Last administered on 08/07/16 06:04; Start 08/05/16 at 18:00 Enalaprilat (Vasotec) 0.625 mg Q6H IV Last administered on 08/07/16 10:24; Start 08/05/16 at 16:00 Ondansetron HCl 4 mg 4 mg PRN Q6HRS PRN IV NAUSEA/VOMITING Last administered on 08/06/16 10:16; Start 08/05/16 at 17:15 Metronidazole (FLAGYL 500Mmg PREMIX) 100 ml @ 100 mls/hr Q12HR IV Last administered on 08/07/16t 08:53; Start 08/05/16 at 22:00 Active Scripts Active Reported Hydrocodone-Apap 5-325 (Hydrocodone Bit/Acetaminophen) 1 Each Tablet 1 Tab PO Q4HRS PRN Vitals/I & O Vital Sign - Last 24 Hours 08/06/16 08/06/16 08/06/16 08/06/16 12:00 15:00 16:26 18:11 Temp 97.5 97.5 Pulse 55 56 60 Resp 18 B/P 133/53 133/53 Pulse Ox 99 O2 Delivery Nasal Cannula O2 Flow Rate 2.0 08/06/16 08/06/16 08/06/16 08/06/16 18:57 20:00 22:22 23:21 Temp 98.3 98.5 98.3 98.5 Pulse 52 75 61 Resp 20 20 B/P 134/48 128/51 129/48 Pulse Ox 99 96 O2 Delivery Nasal Cannula Nasal Cannula Nasal Cannula O2 Flow Rate 2.0 2.0 2.0 08/07/16 08/07/16 08/07/16 08/07/16 00:24 03:38 04:24 06:04 Temp 98.5 98.5 Pulse 69 61 62 68 Resp 18 B/P 129/48 136/59 136/59 108/56 Pulse Ox 95 O2 Delivery Nasal Cannula O2 Flow Rate 2.0 08/07/16 08/07/16 08/07/16 08/07/16 07:58 08:00 10:24 11:03 Temp 98.3 98.3 98.3 98.3 Pulse 55 67 72 Resp 18 19 B/P 136/55 117/55 102/52 Pulse Ox 98 95 O2 Delivery Nasal Cannula Nasal Cannula Nasal Cannula O2 Flow Rate 2.0 2.0 Intake and Output 08/06/16 08/06/16 08/07/16 15:00 23:00 07:00 Intake Total 100 ml 857 ml Output Total 750 ml 575 ml Balance -650 ml 282 ml Nutrition Consultation Dietary Evaluation: Recommendations by RD: Increase Calorie Intake Comments: Rec. continue the clinimix at 80 ml/hr until intake is consistently > 75% of meals and pt is tolerating. 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
--- NOTE | 2016-08-07 13:14 | PDOC ---
G I PROGRESS NOTE Subjective Not responsive today. Did not awaken to voice or exam. Objective No further vomiting, but NPO. Physical Exam Lungs clear. RRR Abdomen soft, apparently not tender. More normal bowel sounds today. Review of Relevant I have reviewed the following items chris (where applicable) has been applied. Labs Laboratory Tests Test 08/05/16 16:37 08/05/16 20:33 08/06/16 06:15 08/06/16 07:38 Glucose (Fingerstick) 169mg/dL (70-99) 244mg/dL (70-99) 262mg/dL (70-99) White Blood Count 18.2x10^3/uL (4.0-11.0) Red Blood Count 3.35x10^6/uL (4.30-5.70) Hemoglobin 9.4g/dL (13.0-17.5) Hematocrit 29.8% (39.0-53.0) Mean Corpuscular Volume 89fL (79-100) Mean Corpuscular Hemoglobin 28pg (25-35) Mean Corpuscular Hemoglobin Concent 32g/dL (31-37) Red Cell Distribution Width 15.4% (11.5-14.5) Platelet Count 327x10^3/uL (140-400) Neutrophils (%) (Auto) 83% (31-73) Lymphocytes (%) (Auto) 7% (24-48) Monocytes (%) (Auto) 10% (0-9) Eosinophils (%) (Auto) 1% (0-3) Basophils (%) (Auto) 0% (0-3) Neutrophils # (Auto) 15.0x10^3uL (1.8-7.7) Lymphocytes # (Auto) 1.2x10^3/uL (1.0-4.8) Monocytes # (Auto) 1.8x10^3/uL (0.0-1.1) Eosinophils # (Auto) 0.1x10^3/uL (0.0-0.7) Basophils # (Auto) 0.0x10^3/uL (0.0-0.2) Sodium Level 141mmol/L (136-145) Potassium Level 4.5mmol/L (3.5-5.1) Chloride Level 105mmol/L (98-107) Carbon Dioxide Level 31mmol/L (21-32) Anion Gap 5 (6-14) Blood Urea Nitrogen 31mg/dL (8-26) Creatinine 0.9mg/dL (0.7-1.3) Estimated GFR (Cockcroft-Gault) 84.2 BUN/Creatinine Ratio 34 (6-20) Glucose Level 277mg/dL (70-99) Calcium Level 8.4mg/dL (8.5-10.1) Total Bilirubin 0.4mg/dL (0.2-1.0) Aspartate Amino Transf (AST/SGOT) 76U/L (15-37) Alanine Aminotransferase (ALT/SGPT) 128U/L (16-63) Alkaline Phosphatase 126U/L (46-116) Total Protein 6.2g/dL (6.4-8.2) Albumin 1.6g/dL (3.4-5.0) Albumin/Globulin Ratio 0.3 (1.0-1.7) Test 08/06/16 12:32 08/06/16 17:07 08/06/16 20:43 08/07/16 07:39 Glucose (Fingerstick) 230mg/dL (70-99) 164mg/dL (70-99) 163mg/dL (70-99) 85mg/dL (70-99) Test 08/07/16 10:38 08/07/16 10:56 Glucose (Fingerstick) 60mg/dL (70-99) 144mg/dL (70-99) Laboratory Tests Test 08/06/16 17:07 08/06/16 20:43 08/07/16 07:39 08/07/16 10:38 Glucose (Fingerstick) 164mg/dL (70-99) 163mg/dL (70-99) 85mg/dL (70-99) 60mg/dL (70-99) Test 08/07/16 10:56 Glucose (Fingerstick) 144mg/dL (70-99) Microbiology 07/28/16 Blood Culture - Final, Complete NO GROWTH AFTER 5 DAYS Medications Current Medications Naloxone HCl 0.4 mg 0.4 mg 1X ONCE IV Last administered on 07/28/16t 21:30; Start 07/28/16 at 21:30; Stop 07/28/16 at 21:31; Status DC Sodium Chloride 1,000 ml @ 1,000 mls/hr 1X ONCE IV Last administered on 21:30; Start 07/28/16 at 21:30; Stop 07/28/16 at 22:29; Status DC Ceftriaxone Sodium 1 gm/ Sodium Chloride 50 ml @ 100 mls/hr Q24H IV Last administered on 07/30/16 21:39; Start 07/29/16 at 21:00; Stop 07/31/16 at 17:33; Status DC Ceftriaxone Sodium 50 ml @ 100 mls/hr 1X ONCE IV Last administered on 21:35; Start 07/28/16 at 22:00; Stop 07/28/16 at 22:29; Status DC Heparin Sodium/ Dextrose 500 ml @ 0 mls/hr CONT PRN IV SEE I/O RECORD Last administered on 07/29/16 21:46; Start 07/28/16 at 22:00; Stop 07/30/16 at 07:59; Status DC Heparin Sodium (Porcine) 2,200 unit PRN Q6HRS PRN IV FOR UFH LEVEL LESS THAN 0.2 Last administered on 07/28/16 23:14; Start 07/28/16 at 22:00; Stop 07/30/16 at 08:00; Status DC Ondansetron HCl 4 mg 4 mg PRN Q8HRS PRN IV NAUSEA/VOMITING; Start 07/28/16 at 22 :15; Stop 07/29/16 at 22:14; Status DC Sodium Chloride 1,000 ml @ 125 mls/hr Q8H IV Last administered on 07/29/16 08: 16; Start 07/28/16 at 22:01; Stop 07/29/16 at 13:04; Status DC Metronidazole (FLAGYL 500Mmg PREMIX) 100 ml @ 100 mls/hr Q12HR IV Last administered on 08/05/16 09:16; Start 07/28/16 at 22:30; Stop 08/05/16 at 13:02 ; Status DC Hydralazine HCl (Apresoline) 10 mg PRN Q4HRS PRN IVP ELEVATED BP, SEE COMMENTS ; Start 07/29/16 at 03:00 Insulin Aspart (Novolog) 0-9 UNITS TIDWMEALS SQ Last administered on 07/31/16 17:51; Start 07/29/16 at 08:00; Stop 08/01/16 at 08:36; Status DC Dextrose 12.5 gm PRN Q15MIN PRN IV SEE COMMENTS Last administered on 08/07/16 10:43; Start 07/29/16 at 03:00 Insulin Aspart (Novolog) 8 units 1X ONCE SQ Last administered on 07/29/16 08: 20; Start 07/29/16 at 08:30; Stop 07/29/16 at 08:31; Status DC Morphine Sulfate 2 mg PRN Q2HR PRN IV PAIN Last administered on 08/04/16 14:44 ; Start 07/29/16 at 09:00 Aspirin (Aspirin) 300 mg 1X ONCE MD Last administered on 07/29/16 13:17; Start 07/29/16 at 10:30; Stop 07/29/16 at 10:31; Status DC Heparin Sodium (Porcine) 1,800 unit PRN Q6HRS PRN IV FOR UFH LEVEL LESS THAN 0.2 Last administered on 07/29/16 10:35; Start 07/29/16 at 10:15; Stop 07/30/16 at 08:00; Status DC Metoprolol Tartrate (Lopressor) 5 mg Q6HRS IVP Last administered on 08/04/16 05:34; Start 07/29/16 at 13:00; Stop 08/04/16 at 14:42; Status DC Aspirin 150 mg 150 mg DAILY MD Last administered on 08/04/16 09:03; Start 07/30 at 09:00; Stop 08/04/16 at 14:42; Status DC Sodium Chloride 1,000 ml @ 60 mls/hr [id number] IV Last administered on 07/29/16 13:25; Start 07/29/16 at 13:30; Stop 07/29/16 at 13:31; Status DC Heparin Sodium (Porcine) 5000 unit/Sodium Chloride 505 ml @ 505 mls/hr 1X PERIOP ONCE IRR Last administered on 07/29/16 15:26; Start 07/29/16 at 14:00; Stop 07/29/16 at 14:59; Status DC Cefazolin Sodium/ Sodium Chloride (Ancef/Iv Sodium Chloride 0.9% 500ml Bag) 500 ml @ 500 mls/hr 1X PERIOP ONCE IRR Last administered on 07/29/16t 15:26; Start 07/29/16 at 14:00; Stop 07/29/16 at 14:59; Status DC Gelatin (Gelfoam Size 12-7mm) 1 each STK-MED ONCE .ROUTE ; Start 07/29/16 at 13: 54; Stop 07/29/16 at 13:55; Status DC Cellulose 1 each STK-MED ONCE .ROUTE ; Start 07/29/16 at 13:54; Stop 07/29/16 at 13:55; Status DC Iohexol (Omnipaque 300 Mg/ml) 50 ml STK-MED ONCE .ROUTE ; Start 07/29/16 at 13:54 ; Stop 07/29/16 at 13:55; Status DC Gelatin (Gelfoam Size 100) 1 each STK-MED ONCE .ROUTE ; Start 07/29/16 at 13:54 ; Stop 07/29/16 at 13:55; Status DC Papaverine HCl 60 mg STK-MED ONCE .ROUTE ; Start 07/29/16 at 13:54; Stop 07/29/16 at 13:55; Status DC Thrombin 20,000 unit STK-MED ONCE TP ; Start 07/29/16 at 13:54; Stop 07/29/16 at 13:55; Status DC Midazolam HCl (Versed) 2 mg STK-MED ONCE .ROUTE ; Start 07/29/16 at 14:14; Stop 07/29/16 at 14:15; Status DC Fentanyl Citrate (Fentanyl 5ml Vial) 250 mcg STK-MED ONCE .ROUTE ; Start at 14:14; Stop 07/29/16 at 14:15; Status DC Rocuronium Kiester 50 mg 50 mg STK-MED ONCE .ROUTE ; Start 07/29/16 at 14:14; Stop 07/29/16 at 14:15; Status DC Propofol (Diprivan) 20 ml @ As Directed STK-MED ONCE IV ; Start 07/29/16 at 14:14 ; Stop 07/29/16 at 14:15; Status DC Dexamethasone Sodium Phosphate (Decadron) 20 mg STK-MED ONCE .ROUTE ; Start 07/29 at 14:14; Stop 07/29/16 at 14:15; Status DC Ondansetron HCl (Zofran) 4 mg STK-MED ONCE .ROUTE ; Start 07/29/16 at 14:14; Stop 07/29/16 at 14:15; Status DC Lidocaine HCl 100 mg STK-MED ONCE .ROUTE ; Start 07/29/16 at 14:15; Stop 07/29/16 at 14:16; Status DC Succinylcholine Chloride (Anectine) 200 mg STK-MED ONCE .ROUTE ; Start 07/29/16 at 14:43; Stop 07/29/16 at 14:44; Status DC Phenylephrine HCl 1 mg STK-MED ONCE IV ; Start 07/29/16 at 15:01; Stop 07/29/16 at 15:02; Status DC Ephedrine Sulfate 50 mg 50 mg STK-MED ONCE .ROUTE ; Start 07/29/16 at 15:28; Stop 07/29/16 at 15:29; Status DC Insulin Human Regular/Sodium Chloride (Novolin R Vial/ Iv Normal Saline 150ml) 151.5 ml @ 7.29 mls/hr 1X ONCE IV ; Start 07/29/16 at 16:45; Stop 07/30/16 at 12 :52; Status DC Info (Anti-Coagulation Monitoring By Pharmacy) 1 each PRN DAILY PRN MC SEE COMMENTS Last administered on 07/29/16t 17:00; Start 07/29/16 at 17:00; Stop at 12:51; Status DC Heparin Sodium (Porcine) 10,000 unit STK-MED ONCE .ROUTE ; Start 07/29/16 at 17: 02; Stop 07/29/16 at 17:03; Status DC Neostigmine Methylsulfate 5 mg STK-MED ONCE .ROUTE ; Start 07/29/16 at 20:52; Stop 07/29/16 at 20:53; Status DC Glycopyrrolate (Robinul) 1 mg STK-MED ONCE .ROUTE ; Start 07/29/16 at 20:52; Stop 07/29/16 at 20:53; Status DC Fentanyl Citrate (Fentanyl 2ml Vial) 50 mcg PRN Q5MIN PRN IV Acute Pain; Start 07/29/16 at 21:15; Stop 07/30/16 at 21:14; Status DC Morphine Sulfate 4 mg PRN Q10MIN PRN IV Moderate Pain; Start 07/29/16 at 21:15; Stop 07/30/16 at 21:14; Status DC Hydromorphone HCl (Dilaudid) 0.4 mg PRN Q10MIN PRN IV Moderate to severe pain; Start 07/29/16 at 21:15; Stop 07/30/16 at 21:14; Status DC Meperidine HCl (Demerol) 12.5 mg PRN Q5MIN PRN IV SHIVERING; Start 07/29/16 at 21:15; Stop 07/30/16 at 00:00; Status DC Prochlorperazine Edisylate (Compazine) 5 mg PRN Q6HRS PRN IV Nausea/Vomiting, 1st Choice; Start 07/29/16 at 21:15; Stop 07/30/16 at 21:14; Status DC Diphenhydramine HCl 12.5 mg 12.5 mg PRN Q2HR PRN IV ITCHING; Start 07/29/16 at 21:15; Stop 07/30/16 at 21:14; Status DC Sodium Chloride (Iv Sodium Chloride 0.45%) 1,000 ml @ 100 mls/hr Q10H IV Last administered on 07/29/16 21:59; Start 07/29/16 at 22:00; Stop 07/30/16 at 09:41; Status DC Cefazolin Sodium/ Dextrose (Ancef 2gm Premix) 2 gm STK-MED ONCE IV ; Start at 17:35; Stop 07/30/16 at 08:53; Status DC Pantoprazole Sodium 40 mg 40 mg [id number] IVP Last administered on 08/01/16 17:18 ; Start 07/30/16 at 18:00; Stop 08/01/16 at 20:26; Status DC Sodium Chloride 1,000 ml @ 60 mls/hr [id number] IV Last administered on 07/30/16 09:47; Start 07/30/16 at 09:45; Stop 07/30/16 at 12:47; Status DC Cefazolin Sodium/ Sodium Chloride (Ancef/Iv Sodium Chloride 0.9% 500ml Bag) 500 ml @ 500 mls/hr 1X PERIOP ONCE IRR Last administered on 07/31/16 13:47; Start 07/31/16 at 06:00; Stop 07/31/16 at 06:59; Status DC Insulin Detemir (Levemir) 15 units [id number] SQ Last administered on 07/30/16 12: 57; Start 07/30/16 at 13:00; Stop 08/01/16 at 08:36; Status DC Insulin Aspart 12 units 12 units 1X ONCE SQ ; Start 07/30/16 at 12:45; Stop 07/30 at 12:47; Status DC Amino Acids/ Electrolytes/ Dextrose (Clinimix E 4.25%-5% Solution) 1,000 ml @ 80 mls/hr [id number] IV Last administered on 08/02/16 17:50; Start 07/30/16 at 13: 00; Stop 08/03/16 at 03:41; Status DC Ondansetron HCl (Zofran) 4 mg PRN Q6HRS PRN IV Nausea; Start 07/31/16 at 07:00; Stop 08/01/16 at 06:59; Status DC Fentanyl Citrate (Fentanyl 2ml Vial) 25 mcg PRN Q5MIN PRN IV MILD PAIN; Start 07/31/16 at 07:00; Stop 08/01/16 at 06:59; Status DC Fentanyl Citrate (Fentanyl 2ml Vial) 50 mcg PRN Q5MIN PRN IV MODERATE PAIN; Start 07/31/16 at 07:00; Stop 08/01/16 at 06:59; Status DC Morphine Sulfate 1 mg 1 mg PRN Q10MIN PRN IV SEVERE PAIN; Start 07/31/16 at 07: 00; Stop 08/01/16 at 06:59; Status DC Lactated Ringer's (Iv Lactated Ringers) 1,000 ml @ 30 mls/hr Q24H IV Last administered on 07/31/16 15:53; Start 07/31/16 at 07:00; Stop 07/31/16 at 18:59; Status DC Lidocaine HCl 2 ml 1X PRN PRN ID IV START; Start 07/31/16 at 07:00; Stop at 06:59; Status DC Hydromorphone HCl (Dilaudid) 0.5 mg PRN Q10MIN PRN IV SEVERE PAIN, Second choice; Start 07/31/16 at 07:00; Stop 08/01/16 at 06:59; Status DC Prochlorperazine Edisylate (Compazine) 5 mg PACU PRN PRN IV NAUSEA; Start at 07:00; Stop 08/01/16 at 06:59; Status DC Insulin Detemir (Levemir) 10 units QHS SQ Last administered on 07/31/16 21:49; Start 07/31/16 at 21:00; Stop 08/01/16 at 08:36; Status DC Enalaprilat (Vasotec) 1.25 mg Q6HRS IV ; Start 07/31/16 at 12:00; Stop 07/31/16 at 12:00; Status DC Enalaprilat (Vasotec) 0.625 mg Q6HRS IV Last administered on 08/04/16 05:35; Start 07/31/16 at 12:00; Stop 08/04/16 at 14:42; Status DC Fentanyl Citrate (Fentanyl 2ml Vial) 100 mcg STK-MED ONCE .ROUTE ; Start at 12:49; Stop 07/31/16 at 12:50; Status DC Rocuronium Kiester (Zemuron) 50 mg STK-MED ONCE .ROUTE ; Start 07/31/16 at 12:49 ; Stop 07/31/16 at 12:50; Status DC Lidocaine HCl 100 mg 100 mg STK-MED ONCE .ROUTE ; Start 07/31/16 at 13:17; Stop 07/31/16 at 13:18; Status DC Propofol (Diprivan) 20 ml @ As Directed STK-MED ONCE IV ; Start 07/31/16 at 13:17 ; Stop 07/31/16 at 13:18; Status DC Succinylcholine Chloride (Anectine) 200 mg STK-MED ONCE .ROUTE ; Start 07/31/16 at 13:30; Stop 07/31/16 at 13:31; Status DC Dexamethasone Sodium Phosphate (Decadron) 20 mg STK-MED ONCE .ROUTE ; Start 07/31 at 13:42; Stop 07/31/16 at 13:43; Status DC Ondansetron HCl (Zofran) 4 mg STK-MED ONCE .ROUTE ; Start 07/31/16 at 13:42; Stop 07/31/16 at 13:43; Status DC Phenylephrine HCl 1 mg STK-MED ONCE IV ; Start 07/31/16 at 13:47; Stop 07/31/16 at 13:48; Status DC Fentanyl Citrate (Fentanyl 2ml Vial) 100 mcg STK-MED ONCE .ROUTE ; Start at 14:26; Stop 07/31/16 at 14:27; Status DC Sevoflurane (Ultane) 60 ml STK-MED ONCE IH ; Start 07/31/16 at 15:13; Stop at 15:14; Status DC Insulin Aspart (Novolog Vial) 3 unit 1X ONCE SQ ; Start 07/31/16 at 15:45; Stop 07/31/16 at 15:45; Status DC Insulin Aspart (Novolog) 3 units 1X ONCE SQ ; Start 07/31/16 at 15:45; Stop 07/31 at 15:46; Status Cancel Insulin Aspart (Novolog Vial) 100 unit STK-MED ONCE SQ ; Start 07/31/16 at 15:41 ; Stop 07/31/16 at 15:42; Status DC Insulin Aspart (Novolog Vial) 3 unit 1X ONCE SQ ; Start 07/31/16 at 16:00; Stop 07/31/16 at 16:01; Status Cancel Insulin Aspart 3 unit 3 unit 1X ONCE SQ Last administered on 07/31/16 15:57; Start 07/31/16 at 16:00; Stop 07/31/16 at 16:01; Status DC Ceftriaxone Sodium/Sodium Chloride (Rocephin/Iv Sodium Chloride 0.9% 50ml) 50 ml @ 100 mls/hr Q24H IV Last administered on 08/06/16 13:14; Start 08/01/16 at 14:00 Insulin Aspart (Novolog) 0-9 UNITS Q6HRS SQ Last administered on 08/03/16 18: 14; Start 08/01/16 at 12:00; Stop 08/04/16 at 12:15; Status DC Insulin Detemir (Levemir) 30 units QHS SQ Last administered on 08/06/16 21:18 ; Start 08/01/16 at 21:00 Pantoprazole Sodium 40 mg 40 mg BID IVP Last administered on 08/07/16 08:54; Start 08/01/16 at 21:00 Amino Acids/ Electrolytes 1,000 ml @ 80 mls/hr [id number] IV Last administered on 08/03/16 05:09; Start 08/03/16 at 03:41; Stop 08/03/16 at 17:24; Status DC Amino Acids/ Electrolytes (Clinimix E 2.75%-5% Solution) 2,000 ml @ 80 mls/hr Q24H IV Last administered on 08/07/16 00:21; Start 08/03/16 at 17:24 Insulin Aspart (Novolog) 0-9 UNITS TIDWMEALS SQ Last administered on 08/06/16 13:17; Start 08/04/16 at 12:11 Aspirin (Ecotrin) 81 mg [id number] PO Last administered on 08/05/16 09:14; Start 08/05/16 at 08:00; Stop 08/05/16 at 13:50; Status DC Carvedilol (Coreg) 6.25 mg BIDWMEALS PO Last administered on 08/05/16 09:15; Start 08/04/16 at 17:00; Stop 08/05/16 at 13:50; Status DC Lisinopril (Prinivil) 5 mg HS PO Last administered on 08/04/16 21:06; Start at 21:00; Stop 08/05/16 at 13:50; Status DC Cefpodoxime Proxetil (Vantin) 200 mg BID PO ; Start 08/05/16 at 14:00; Stop at 14:08; Status DC Metronidazole (Flagyl) 500 mg BID PO ; Start 08/05/16 at 21:00; Status Cancel Furosemide (Lasix) 20 mg 1X ONCE IVP Last administered on 08/05/16 13:54; Start 08/05/16 at 13:15; Stop 08/05/16 at 13:16; Status DC Aspirin (Aspirin) 300 mg DAILY MD Last administered on 08/07/16 08:54; Start 08/06/16 at 09:00 Metoprolol Tartrate (Lopressor) 5 mg Q6HRS IVP Last administered on 08/07/16 06:04; Start 08/05/16 at 18:00 Enalaprilat (Vasotec) 0.625 mg Q6H IV Last administered on 08/07/16 10:24; Start 08/05/16 at 16:00 Ondansetron HCl 4 mg 4 mg PRN Q6HRS PRN IV NAUSEA/VOMITING Last administered on 08/06/16 10:16; Start 08/05/16 at 17:15 Metronidazole (FLAGYL 500Mmg PREMIX) 100 ml @ 100 mls/hr Q12HR IV Last administered on 08/07/16 08:53; Start 08/05/16 at 22:00 Active Scripts Active Reported Hydrocodone-Apap 5-325 (Hydrocodone Bit/Acetaminophen) 1 Each Tablet 1 Tab PO Q4HRS PRN Vitals/I & O Vital Sign - Last 24 Hours 08/06/16 08/06/16 08/06/16 08/06/16 15:00 16:26 18:11 18:57 Temp 97.5 98.3 97.5 98.3 Pulse 56 60 52 Resp 18 20 B/P 133/53 133/53 134/48 Pulse Ox 99 99 O2 Delivery Nasal Cannula Nasal Cannula O2 Flow Rate 2.0 2.0 08/06/16 08/06/16 08/06/16 08/07/16 20:00 22:22 23:21 00:24 Temp 98.5 98.5 Pulse 75 61 69 Resp 20 B/P 128/51 129/48 129/48 Pulse Ox 96 O2 Delivery Nasal Cannula Nasal Cannula O2 Flow Rate 2.0 2.0 08/07/16 08/07/16 08/07/16 08/07/16 03:38 04:24 06:04 07:58 Temp 98.5 98.3 98.5 98.3 Pulse 61 62 68 55 Resp 18 18 B/P 136/59 136/59 108/56 136/55 Pulse Ox 95 98 O2 Delivery Nasal Cannula Nasal Cannula O2 Flow Rate 2.0 2.0 08/07/16 08/07/16 08/07/16 08:00 10:24 11:03 Temp 98.3 98.3 Pulse 67 72 Resp 19 B/P 117/55 102/52 Pulse Ox 95 O2 Delivery Nasal Cannula Nasal Cannula O2 Flow Rate 2.0 Intake and Output 08/06/16 08/06/16 08/07/16 15:00 23:00 07:00 Intake Total 100 ml 857 ml Output Total 750 ml 575 ml Balance -650 ml 282 ml Images KUB yesterday OK. Problem List Problems Medical Problems: (1) Altered mental status Status: Acute (2) Dehydration Status: Acute (3) NSTEMI (non-ST elevated myocardial infarction) Status: Acute Assessment Continued altered mental status; no family ever in attendance. Not eating; discussed with Dr. Garcia. As no family identifiable, no way to obtain informed consent and feeding tube placement above [place] would require this and not emergent. Plan of Care Note Await repeat swallow study; given mental status, likely will not pass. [place] if fails swallow study. JETHRO SEE MD Aug 07, 2016 13:14
[2016-08-07 14:19] VITALS: BP 138/64
[2016-08-07] MEDS: CEFTRIAXONE SODIUM 1 GM in IV NORMAL SALINE 50ML 50 ML IV SCH (14:35)
--- NOTE | 2016-08-07 16:03 | PDOC2 ---
PALLIATIVE CARE Palliative Care Note Palliative Care Consult requested by Dr. Flores to address goals of care Patient drowsy but will open eyes and answer questions. (more alert this afternoon per Roslyn RN) Diagnosis: Left AKA ) for sever PVD; DM1 NSTMI with medical management ; cardiomyopathy; systolic HF leucocytosis Only known acquaintance is neighbor Frannie Bolton ) and her daughter Karen Camacho? [phone] Patient has no AD. ; may have nephew/cousin? he communicates with per Frannie Patient goes to food kitchen frequently. Was seen at [facility] first of July --was brought home by cab that evening per Frannie. Frannie stated the patient said "they are just talking trash" at [facility] -- wanting to amputate his leg may have been the reason for his comment. Frannie asked if he had every talked about his health or what he would want done if he became very ill. Stated he was always a private person. Knew his had but does not know how long ago. Patient indicated that if his heart stopped or he stopped breathing he would not want to be put on life support. ( This was confirmed again with Roslyn RN in attendance. ) Frannie stated that "sounded like him" Will continue to see if patient is consistent with this wish. Frannie will try to come to hospital tomorrow. Understands that Intermediate is likely option for discharge. Will continue to pursue discharge plans--possibly ILIANA Delacruz Aug 07, 2016 16:03
[2016-08-07 19:00] VITALS: BP 150/53
[2016-08-07] MEDS: INSULIN DETEMIR 300 UNITS/3 ML INSULN.PEN. SQ SCH (21:25)
[2016-08-07 23:00] VITALS: BP 106/56
[2016-08-08] MEDS: METOPROLOL TARTRATE 5 MG/5 ML VIAL. IVP SCH ×4 (00:44→18:10)
[2016-08-08 03:00] VITALS: BP 123/67
[2016-08-08] MEDS: ENALAPRILAT 1.25 MG/ML VIAL. IV SCH ×4 (03:46→22:12)
[2016-08-08] MEDS: AA 2.75%/CALCIUM/LYTES/D5W 2,000 ML IV SCH (06:48)
--- NOTE | 2016-08-08 06:51 | PDOC ---
Provider Note Provider Note AF VSS awake and alert left groin and left AKA incisions intact with no erythema/drainage a/p s/p left leg bypass and AKA -follow with in 3 weeks to have nora removed - awaiting placement BRANDEN ARANDA MD Aug 08, 2016 06:51
[2016-08-08] MEDS: INSULIN ASPART 300 UNITS/3 ML INSULN.PEN SQ SCH ×3 (07:41→17:00)
[2016-08-08 07:50] VITALS: BP 123/55
[2016-08-08] MEDS: METRONIDAZOLE 500mg PREMIX 100 ML IV SCH (08:18)
[2016-08-08] MEDS: PANTOPRAZOLE IV PUSH 40 MG VIAL. IVP SCH ×2 (08:18→21:14)
[2016-08-08] MEDS: ASPIRIN 300 MG SUPP.RECT PR SCH (08:18)
--- NOTE | 2016-08-08 09:05 | PDOC ---
G I PROGRESS NOTE Subjective Arouses. Breakfast tray touched, but slow going. No reports of any nausea or vomiting. Physical Exam Lungs clear. RRR Abdomen soft, not distended nor tender. Review of Relevant I have reviewed the following items chris (where applicable) has been applied. Labs Laboratory Tests Test 08/06/16 12:32 08/06/16 17:07 08/06/16 20:43 08/07/16 07:39 Glucose (Fingerstick) 230mg/dL (70-99) 164mg/dL (70-99) 163mg/dL (70-99) 85mg/dL (70-99) Test 08/07/16 10:38 08/07/16 10:56 08/07/16 16:47 08/07/16 20:41 Glucose (Fingerstick) 60mg/dL (70-99) 144mg/dL (70-99) 78mg/dL (70-99) 332mg/dL (70-99) Test 08/08/16 07:23 Glucose (Fingerstick) 149mg/dL (70-99) Laboratory Tests Test 08/07/16 10:38 08/07/16 10:56 08/07/16 16:47 08/07/16 20:41 Glucose (Fingerstick) 60mg/dL (70-99) 144mg/dL (70-99) 78mg/dL (70-99) 332mg/dL (70-99) Test 08/08/16 07:23 Glucose (Fingerstick) 149mg/dL (70-99) Microbiology 07/28/16 Blood Culture - Final, Complete NO GROWTH AFTER 5 DAYS Medications Current Medications Naloxone HCl 0.4 mg 0.4 mg 1X ONCE IV Last administered on 07/28/16 21:30; Start 07/28/16 at 21:30; Stop 07/28/16 at 21:31; Status DC Sodium Chloride 1,000 ml @ 1,000 mls/hr 1X ONCE IV Last administered on 21:30; Start 07/28/16 at 21:30; Stop 07/28/16 at 22:29; Status DC Ceftriaxone Sodium 1 gm/ Sodium Chloride 50 ml @ 100 mls/hr Q24H IV Last administered on 07/30/16 21:39; Start 07/29/16 at 21:00; Stop 07/31/16 at 17:33; Status DC Ceftriaxone Sodium 50 ml @ 100 mls/hr 1X ONCE IV Last administered on 21:35; Start 07/28/16 at 22:00; Stop 07/28/16 at 22:29; Status DC Heparin Sodium/ Dextrose 500 ml @ 0 mls/hr CONT PRN IV SEE I/O RECORD Last administered on 07/29/16 21:46; Start 07/28/16 at 22:00; Stop 07/30/16 at 07:59; Status DC Heparin Sodium (Porcine) 2,200 unit PRN Q6HRS PRN IV FOR UFH LEVEL LESS THAN 0.2 Last administered on 07/28/16 23:14; Start 07/28/16 at 22:00; Stop 07/30/16 at 08:00; Status DC Ondansetron HCl 4 mg 4 mg PRN Q8HRS PRN IV NAUSEA/VOMITING; Start 07/28/16 at 22 :15; Stop 07/29/16 at 22:14; Status DC Sodium Chloride 1,000 ml @ 125 mls/hr Q8H IV Last administered on 07/29/16 08: 16; Start 07/28/16 at 22:01; Stop 07/29/16 at 13:04; Status DC Metronidazole (FLAGYL 500Mmg PREMIX) 100 ml @ 100 mls/hr Q12HR IV Last administered on 08/05/16 09:16; Start 07/28/16 at 22:30; Stop 08/05/16 at 13:02 ; Status DC Hydralazine HCl (Apresoline) 10 mg PRN Q4HRS PRN IVP ELEVATED BP, SEE COMMENTS ; Start 07/29/16 at 03:00 Insulin Aspart (Novolog) 0-9 UNITS TIDWMEALS SQ Last administered on 07/31/16 17:51; Start 07/29/16 at 08:00; Stop 08/01/16 at 08:36; Status DC Dextrose 12.5 gm PRN Q15MIN PRN IV SEE COMMENTS Last administered on 08/07/16 10:43; Start 07/29/16 at 03:00 Insulin Aspart (Novolog) 8 units 1X ONCE SQ Last administered on 07/29/16 08: 20; Start 07/29/16 at 08:30; Stop 07/29/16 at 08:31; Status DC Morphine Sulfate 2 mg PRN Q2HR PRN IV PAIN Last administered on 08/04/16 14:44 ; Start 07/29/16 at 09:00 Aspirin (Aspirin) 300 mg 1X ONCE [place] Last administered on 07/29/16 13:17; Start 07/29/16 at 10:30; Stop 07/29/16 at 10:31; Status DC Heparin Sodium (Porcine) 1,800 unit PRN Q6HRS PRN IV FOR UFH LEVEL LESS THAN 0.2 Last administered on 07/29/16 10:35; Start 07/29/16 at 10:15; Stop 07/30/16 at 08:00; Status DC Metoprolol Tartrate (Lopressor) 5 mg Q6HRS IVP Last administered on 08/04/16 05:34; Start 07/29/16 at 13:00; Stop 08/04/16 at 14:42; Status DC Aspirin 150 mg 150 mg DAILY [place] Last administered on 08/04/16 09:03; Start 07/30 at 09:00; Stop 08/04/16 at 14:42; Status DC Sodium Chloride 1,000 ml @ 60 mls/hr [id number] IV Last administered on 07/29/16 13:25; Start 07/29/16 at 13:30; Stop 07/29/16 at 13:31; Status DC Heparin Sodium (Porcine) 5000 unit/Sodium Chloride 505 ml @ 505 mls/hr 1X PERIOP ONCE IRR Last administered on 07/29/16 15:26; Start 07/29/16 at 14:00; Stop 07/29/16 at 14:59; Status DC Cefazolin Sodium/ Sodium Chloride (Ancef/Iv Sodium Chloride 0.9% 500ml Bag) 500 ml @ 500 mls/hr 1X PERIOP ONCE IRR Last administered on 07/29/16 15:26; Start 07/29/16 at 14:00; Stop 07/29/16 at 14:59; Status DC Gelatin (Gelfoam Size 12-7mm) 1 each STK-MED ONCE .ROUTE ; Start 07/29/16 at 13: 54; Stop 07/29/16 at 13:55; Status DC Cellulose 1 each STK-MED ONCE .ROUTE ; Start 07/29/16 at 13:54; Stop 07/29/16 at 13:55; Status DC Iohexol (Omnipaque 300 Mg/ml) 50 ml STK-MED ONCE .ROUTE ; Start 07/29/16 at 13:54 ; Stop 07/29/16 at 13:55; Status DC Gelatin (Gelfoam Size 100) 1 each STK-MED ONCE .ROUTE ; Start 07/29/16 at 13:54 ; Stop 07/29/16 at 13:55; Status DC Papaverine HCl 60 mg STK-MED ONCE .ROUTE ; Start 07/29/16 at 13:54; Stop 07/29/16 at 13:55; Status DC Thrombin 20,000 unit STK-MED ONCE TP ; Start 07/29/16 at 13:54; Stop 07/29/16 at 13:55; Status DC Midazolam HCl (Versed) 2 mg STK-MED ONCE .ROUTE ; Start 07/29/16 at 14:14; Stop 07/29/16 at 14:15; Status DC Fentanyl Citrate (Fentanyl 5ml Vial) 250 mcg STK-MED ONCE .ROUTE ; Start at 14:14; Stop 07/29/16 at 14:15; Status DC Rocuronium Mercer 50 mg 50 mg STK-MED ONCE .ROUTE ; Start 07/29/16 at 14:14; Stop 07/29/16 at 14:15; Status DC Propofol (Diprivan) 20 ml @ As Directed STK-MED ONCE IV ; Start 07/29/16 at 14:14 ; Stop 07/29/16 at 14:15; Status DC Dexamethasone Sodium Phosphate (Decadron) 20 mg STK-MED ONCE .ROUTE ; Start 07/29 at 14:14; Stop 07/29/16 at 14:15; Status DC Ondansetron HCl (Zofran) 4 mg STK-MED ONCE .ROUTE ; Start 07/29/16 at 14:14; Stop 07/29/16 at 14:15; Status DC Lidocaine HCl 100 mg STK-MED ONCE .ROUTE ; Start 07/29/16 at 14:15; Stop 07/29/16 at 14:16; Status DC Succinylcholine Chloride (Anectine) 200 mg STK-MED ONCE .ROUTE ; Start 07/29/16 at 14:43; Stop 07/29/16 at 14:44; Status DC Phenylephrine HCl 1 mg STK-MED ONCE IV ; Start 07/29/16 at 15:01; Stop 07/29/16 at 15:02; Status DC Ephedrine Sulfate 50 mg 50 mg STK-MED ONCE .ROUTE ; Start 07/29/16 at 15:28; Stop 07/29/16 at 15:29; Status DC Insulin Human Regular/Sodium Chloride (Novolin R Vial/ Iv Normal Saline 150ml) 151.5 ml @ 7.29 mls/hr 1X ONCE IV ; Start 07/29/16 at 16:45; Stop 07/30/16 at 12 :52; Status DC Info (Anti-Coagulation Monitoring By Pharmacy) 1 each PRN DAILY PRN MC SEE COMMENTS Last administered on 07/29/16t 17:00; Start 07/29/16 at 17:00; Stop at 12:51; Status DC Heparin Sodium (Porcine) 10,000 unit STK-MED ONCE .ROUTE ; Start 07/29/16 at 17: 02; Stop 07/29/16 at 17:03; Status DC Neostigmine Methylsulfate 5 mg STK-MED ONCE .ROUTE ; Start 07/29/16 at 20:52; Stop 07/29/16 at 20:53; Status DC Glycopyrrolate (Robinul) 1 mg STK-MED ONCE .ROUTE ; Start 07/29/16 at 20:52; Stop 07/29/16 at 20:53; Status DC Fentanyl Citrate (Fentanyl 2ml Vial) 50 mcg PRN Q5MIN PRN IV Acute Pain; Start 07/29/16 at 21:15; Stop 07/30/16 at 21:14; Status DC Morphine Sulfate 4 mg PRN Q10MIN PRN IV Moderate Pain; Start 07/29/16 at 21:15; Stop 07/30/16 at 21:14; Status DC Hydromorphone HCl (Dilaudid) 0.4 mg PRN Q10MIN PRN IV Moderate to severe pain; Start 07/29/16 at 21:15; Stop 07/30/16 at 21:14; Status DC Meperidine HCl (Demerol) 12.5 mg PRN Q5MIN PRN IV SHIVERING; Start 07/29/16 at 21:15; Stop 07/30/16 at 00:00; Status DC Prochlorperazine Edisylate (Compazine) 5 mg PRN Q6HRS PRN IV Nausea/Vomiting, 1st Choice; Start 07/29/16 at 21:15; Stop 07/30/16 at 21:14; Status DC Diphenhydramine HCl 12.5 mg 12.5 mg PRN Q2HR PRN IV ITCHING; Start 07/29/16 at 21:15; Stop 07/30/16 at 21:14; Status DC Sodium Chloride (Iv Sodium Chloride 0.45%) 1,000 ml @ 100 mls/hr Q10H IV Last administered on 07/29/16 21:59; Start 07/29/16 at 22:00; Stop 07/30/16 at 09:41; Status DC Cefazolin Sodium/ Dextrose (Ancef 2gm Premix) 2 gm STK-MED ONCE IV ; Start at 17:35; Stop 07/30/16 at 08:53; Status DC Pantoprazole Sodium 40 mg 40 mg [id number] IVP Last administered on 08/01/16 17:18 ; Start 07/30/16 at 18:00; Stop 08/01/16 at 20:26; Status DC Sodium Chloride 1,000 ml @ 60 mls/hr [id number] IV Last administered on 07/30/16 09:47; Start 07/30/16 at 09:45; Stop 07/30/16 at 12:47; Status DC Cefazolin Sodium/ Sodium Chloride (Ancef/Iv Sodium Chloride 0.9% 500ml Bag) 500 ml @ 500 mls/hr 1X PERIOP ONCE IRR Last administered on 07/31/16 13:47; Start 07/31/16 at 06:00; Stop 07/31/16 at 06:59; Status DC Insulin Detemir (Levemir) 15 units [id number] SQ Last administered on 07/30/16 12: 57; Start 07/30/16 at 13:00; Stop 08/01/16 at 08:36; Status DC Insulin Aspart 12 units 12 units 1X ONCE SQ ; Start 07/30/16 at 12:45; Stop 07/30 at 12:47; Status DC Amino Acids/ Electrolytes/ Dextrose (Clinimix E 4.25%-5% Solution) 1,000 ml @ 80 mls/hr [id number] IV Last administered on 08/02/16 17:50; Start 07/30/16 at 13: 00; Stop 08/03/16 at 03:41; Status DC Ondansetron HCl (Zofran) 4 mg PRN Q6HRS PRN IV Nausea; Start 07/31/16 at 07:00; Stop 08/01/16 at 06:59; Status DC Fentanyl Citrate (Fentanyl 2ml Vial) 25 mcg PRN Q5MIN PRN IV MILD PAIN; Start 07/31/16 at 07:00; Stop 08/01/16 at 06:59; Status DC Fentanyl Citrate (Fentanyl 2ml Vial) 50 mcg PRN Q5MIN PRN IV MODERATE PAIN; Start 07/31/16 at 07:00; Stop 08/01/16 at 06:59; Status DC Morphine Sulfate 1 mg 1 mg PRN Q10MIN PRN IV SEVERE PAIN; Start 07/31/16 at 07: 00; Stop 08/01/16 at 06:59; Status DC Lactated Ringer's (Iv Lactated Ringers) 1,000 ml @ 30 mls/hr Q24H IV Last administered on 07/31/16 15:53; Start 07/31/16 at 07:00; Stop 07/31/16 at 18:59; Status DC Lidocaine HCl 2 ml 1X PRN PRN ID IV START; Start 07/31/16 at 07:00; Stop at 06:59; Status DC Hydromorphone HCl (Dilaudid) 0.5 mg PRN Q10MIN PRN IV SEVERE PAIN, Second choice; Start 07/31/16 at 07:00; Stop 08/01/16 at 06:59; Status DC Prochlorperazine Edisylate (Compazine) 5 mg PACU PRN PRN IV NAUSEA; Start at 07:00; Stop 08/01/16 at 06:59; Status DC Insulin Detemir (Levemir) 10 units QHS SQ Last administered on 07/31/16 21:49; Start 07/31/16 at 21:00; Stop 08/01/16 at 08:36; Status DC Enalaprilat (Vasotec) 1.25 mg Q6HRS IV ; Start 07/31/16 at 12:00; Stop 07/31/16 at 12:00; Status DC Enalaprilat (Vasotec) 0.625 mg Q6HRS IV Last administered on 08/04/16t 05:35; Start 07/31/16 at 12:00; Stop 08/04/16 at 14:42; Status DC Fentanyl Citrate (Fentanyl 2ml Vial) 100 mcg STK-MED ONCE .ROUTE ; Start at 12:49; Stop 07/31/16 at 12:50; Status DC Rocuronium Mercer (Zemuron) 50 mg STK-MED ONCE .ROUTE ; Start 07/31/16 at 12:49 ; Stop 07/31/16 at 12:50; Status DC Lidocaine HCl 100 mg 100 mg STK-MED ONCE .ROUTE ; Start 07/31/16 at 13:17; Stop 07/31/16 at 13:18; Status DC Propofol (Diprivan) 20 ml @ As Directed STK-MED ONCE IV ; Start 07/31/16 at 13:17 ; Stop 07/31/16 at 13:18; Status DC Succinylcholine Chloride (Anectine) 200 mg STK-MED ONCE .ROUTE ; Start 07/31/16 at 13:30; Stop 07/31/16 at 13:31; Status DC Dexamethasone Sodium Phosphate (Decadron) 20 mg STK-MED ONCE .ROUTE ; Start 07/31 at 13:42; Stop 07/31/16 at 13:43; Status DC Ondansetron HCl (Zofran) 4 mg STK-MED ONCE .ROUTE ; Start 07/31/16 at 13:42; Stop 07/31/16 at 13:43; Status DC Phenylephrine HCl 1 mg STK-MED ONCE IV ; Start 07/31/16 at 13:47; Stop 07/31/16 at 13:48; Status DC Fentanyl Citrate (Fentanyl 2ml Vial) 100 mcg STK-MED ONCE .ROUTE ; Start at 14:26; Stop 07/31/16 at 14:27; Status DC Sevoflurane (Ultane) 60 ml STK-MED ONCE IH ; Start 07/31/16 at 15:13; Stop at 15:14; Status DC Insulin Aspart (Novolog Vial) 3 unit 1X ONCE SQ ; Start 07/31/16 at 15:45; Stop 07/31/16 at 15:45; Status DC Insulin Aspart (Novolog) 3 units 1X ONCE SQ ; Start 07/31/16 at 15:45; Stop 07/31 at 15:46; Status Cancel Insulin Aspart (Novolog Vial) 100 unit STK-MED ONCE SQ ; Start 07/31/16 at 15:41 ; Stop 07/31/16 at 15:42; Status DC Insulin Aspart (Novolog Vial) 3 unit 1X ONCE SQ ; Start 07/31/16 at 16:00; Stop 07/31/16 at 16:01; Status Cancel Insulin Aspart 3 unit 3 unit 1X ONCE SQ Last administered on 07/31/16 15:57; Start 07/31/16 at 16:00; Stop 07/31/16 at 16:01; Status DC Ceftriaxone Sodium/Sodium Chloride (Rocephin/Iv Sodium Chloride 0.9% 50ml) 50 ml @ 100 mls/hr Q24H IV Last administered on 08/07/16 14:35; Start 08/01/16 at 14:00 Insulin Aspart (Novolog) 0-9 UNITS Q6HRS SQ Last administered on 08/03/16 18: 14; Start 08/01/16 at 12:00; Stop 08/04/16 at 12:15; Status DC Insulin Detemir (Levemir) 30 units QHS SQ Last administered on 08/07/16 21:25 ; Start 08/01/16 at 21:00 Pantoprazole Sodium 40 mg 40 mg BID IVP Last administered on 08/08/16 08:18; Start 08/01/16 at 21:00 Amino Acids/ Electrolytes 1,000 ml @ 80 mls/hr [id number] IV Last administered on 08/03/16 05:09; Start 08/03/16 at 03:41; Stop 08/03/16 at 17:24; Status DC Amino Acids/ Electrolytes (Clinimix E 2.75%-5% Solution) 2,000 ml @ 80 mls/hr Q24H IV Last administered on 08/08/16 06:48; Start 08/03/16 at 17:24 Insulin Aspart (Novolog) 0-9 UNITS TIDWMEALS SQ Last administered on 08/06/16 13:17; Start 08/04/16 at 12:11 Aspirin (Ecotrin) 81 mg [id number] PO Last administered on 08/05/16 09:14; Start 08/05/16 at 08:00; Stop 08/05/16 at 13:50; Status DC Carvedilol (Coreg) 6.25 mg BIDWMEALS PO Last administered on 08/05/16 09:15; Start 08/04/16 at 17:00; Stop 08/05/16 at 13:50; Status DC Lisinopril (Prinivil) 5 mg HS PO Last administered on 08/04/16 21:06; Start at 21:00; Stop 08/05/16 at 13:50; Status DC Cefpodoxime Proxetil (Vantin) 200 mg BID PO ; Start 08/05/16 at 14:00; Stop at 14:08; Status DC Metronidazole (Flagyl) 500 mg BID PO ; Start 08/05/16 at 21:00; Status Cancel Furosemide (Lasix) 20 mg 1X ONCE IVP Last administered on 08/05/16 13:54; Start 08/05/16 at 13:15; Stop 08/05/16 at 13:16; Status DC Aspirin (Aspirin) 300 mg DAILY [place] Last administered on 08/08/16 08:18; Start 08/06/16 at 09:00 Metoprolol Tartrate (Lopressor) 5 mg Q6HRS IVP Last administered on 08/08/16 06:48; Start 08/05/16 at 18:00 Enalaprilat (Vasotec) 0.625 mg Q6H IV Last administered on 08/08/16 03:46; Start 08/05/16 at 16:00 Ondansetron HCl 4 mg 4 mg PRN Q6HRS PRN IV NAUSEA/VOMITING Last administered on 08/06/16 10:16; Start 08/05/16 at 17:15 Metronidazole (FLAGYL 500Mmg PREMIX) 100 ml @ 100 mls/hr Q12HR IV Last administered on 08/08/16 08:18; Start 08/05/16 at 22:00 Active Scripts Active Reported Hydrocodone-Apap 5-325 (Hydrocodone Bit/Acetaminophen) 1 Each Tablet 1 Tab PO Q4HRS PRN Vitals/I & O Vital Sign - Last 24 Hours 08/07/16 08/07/16 08/07/16 08/07/16 10:24 11:03 14:19 14:36 Temp 98.3 98.3 98.3 98.3 Pulse 67 72 62 69 Resp 19 B/P 117/55 102/52 138/64 138/64 Pulse Ox 95 O2 Delivery Nasal Cannula 08/07/16 08/07/16 08/07/16 08/07/16 17:02 18:33 19:00 20:00 Temp 98.6 98.6 Pulse 58 65 56 Resp 18 B/P 140/54 140/54 150/53 Pulse Ox 98 O2 Delivery Nasal Cannula Nasal Cannula O2 Flow Rate 2.0 2.0 08/07/16 08/07/16 08/08/16 08/08/16 21:22 23:00 00:44 03:00 Temp 98.6 99.0 98.6 99.0 Pulse 62 75 62 62 Resp 18 18 B/P 127/47 106/56 117/58 123/67 Pulse Ox 98 99 O2 Delivery Nasal Cannula Nasal Cannula O2 Flow Rate 2.0 2.0 08/08/16 08/08/16 08/08/16 03:46 06:48 07:50 Temp 98.8 98.8 Pulse 72 55 64 Resp 18 B/P 123/67 134/38 123/55 Pulse Ox 98 O2 Delivery Nasal Cannula O2 Flow Rate 2.0 Intake and Output 08/07/16 08/07/16 08/08/16 15:00 23:00 07:00 Intake Total 360 ml Output Total 450 ml 650 ml Balance -90 ml -650 ml Problem List Problems Medical Problems: (1) Altered mental status Status: Acute (2) Dehydration Status: Acute (3) NSTEMI (non-ST elevated myocardial infarction) Status: Acute Assessment AMS, fluctuating. Biggest barrier to po intake seems to be mental status. Plan of Care: Continue current Tx, Mgmt Plan of Care Note I'm off the weekend. Dr. Dupree available if needed. JETHRO SEE MD Aug 08, 2016 09:04
[2016-08-08 10:29] VITALS: BP 117/50
--- NOTE | 2016-08-08 10:34 | PDOC ---
PROGRESS NOTES Assessment Problems Medical Problems: (1) Altered mental status Status: Acute (2) Dehydration Status: Acute (3) NSTEMI (non-ST elevated myocardial infarction) Status: Acute Metabolic encephalopathy. Plan Will follow Repeat EEG or CT scan won't be helpful. Covering neurologist will see only PRN this weekend Subjective none Objective Vital Signs Date Time Temp Pulse Resp B/P Pulse Ox O2 Delivery O2 Flow Rate FiO2 08/08/16 08:00 Nasal Cannula 2.0 08/08/16 07:50 98.8 64 18 123/55 98 98.8 Intake and Output 08/08/16 07:00 Intake Total 360 ml Output Total 1100 ml Balance -740 ml Intake Oral 360 ml Output Urine Total 1100 ml PHYSICAL EXAM A little more alert, tells me name, "June." PERRL. EOMI. CN: no focal findings. Muscle tone: normal. Muscle strength: moves all extremities, DTR: 1+ Plantar reflex: flexor, LLE AKA Gait: not examined in bed. Sensory exam: no abnormal findings. No cerebellar signs elicited. Review of Relevant I have reviewed the following items chris (where applicable) has been applied. Labs Laboratory Tests Test 08/06/16 12:32 08/06/16 17:07 08/06/16 20:43 08/07/16 07:39 Glucose (Fingerstick) 230mg/dL (70-99) 164mg/dL (70-99) 163mg/dL (70-99) 85mg/dL (70-99) Test 08/07/16 10:38 08/07/16 10:56 08/07/16 16:47 08/07/16 20:41 Glucose (Fingerstick) 60mg/dL (70-99) 144mg/dL (70-99) 78mg/dL (70-99) 332mg/dL (70-99) Test 08/08/16 07:23 Glucose (Fingerstick) 149mg/dL (70-99) Laboratory Tests Test 08/07/16 10:38 08/07/16 10:56 08/07/16 16:47 08/07/16 20:41 Glucose (Fingerstick) 60mg/dL (70-99) 144mg/dL (70-99) 78mg/dL (70-99) 332mg/dL (70-99) Test 08/08/16 07:23 Glucose (Fingerstick) 149mg/dL (70-99) Microbiology 07/28/16 Blood Culture - Final, Complete NO GROWTH AFTER 5 DAYS Medications Current Medications Naloxone HCl 0.4 mg 0.4 mg 1X ONCE IV Last administered on 07/28/16 21:30; Start 07/28/16 at 21:30; Stop 07/28/16 at 21:31; Status DC Sodium Chloride 1,000 ml @ 1,000 mls/hr 1X ONCE IV Last administered on 21:30; Start 07/28/16 at 21:30; Stop 07/28/16 at 22:29; Status DC Ceftriaxone Sodium 1 gm/ Sodium Chloride 50 ml @ 100 mls/hr Q24H IV Last administered on 07/30/16 21:39; Start 07/29/16 at 21:00; Stop 07/31/16 at 17:33; Status DC Ceftriaxone Sodium 50 ml @ 100 mls/hr 1X ONCE IV Last administered on 21:35; Start 07/28/16 at 22:00; Stop 07/28/16 at 22:29; Status DC Heparin Sodium/ Dextrose 500 ml @ 0 mls/hr CONT PRN IV SEE I/O RECORD Last administered on 07/29/16 21:46; Start 07/28/16 at 22:00; Stop 07/30/16 at 07:59; Status DC Heparin Sodium (Porcine) 2,200 unit PRN Q6HRS PRN IV FOR UFH LEVEL LESS THAN 0.2 Last administered on 07/28/16 23:14; Start 07/28/16 at 22:00; Stop 07/30/16 at 08:00; Status DC Ondansetron HCl 4 mg 4 mg PRN Q8HRS PRN IV NAUSEA/VOMITING; Start 07/28/16 at 22 :15; Stop 07/29/16 at 22:14; Status DC Sodium Chloride 1,000 ml @ 125 mls/hr Q8H IV Last administered on 07/29/16 08: 16; Start 07/28/16 at 22:01; Stop 07/29/16 at 13:04; Status DC Metronidazole (FLAGYL 500Mmg PREMIX) 100 ml @ 100 mls/hr Q12HR IV Last administered on 08/05/16 09:16; Start 07/28/16 at 22:30; Stop 08/05/16 at 13:02 ; Status DC Hydralazine HCl (Apresoline) 10 mg PRN Q4HRS PRN IVP ELEVATED BP, SEE COMMENTS ; Start 07/29/16 at 03:00 Insulin Aspart (Novolog) 0-9 UNITS TIDWMEALS SQ Last administered on 07/31/16 17:51; Start 07/29/16 at 08:00; Stop 08/01/16 at 08:36; Status DC Dextrose 12.5 gm PRN Q15MIN PRN IV SEE COMMENTS Last administered on 08/07/16 10:43; Start 07/29/16 at 03:00 Insulin Aspart (Novolog) 8 units 1X ONCE SQ Last administered on 07/29/16 08: 20; Start 07/29/16 at 08:30; Stop 07/29/16 at 08:31; Status DC Morphine Sulfate 2 mg PRN Q2HR PRN IV PAIN Last administered on 08/04/16 14:44 ; Start 07/29/16 at 09:00 Aspirin (Aspirin) 300 mg 1X ONCE [place] Last administered on 07/29/16 13:17; Start 07/29/16 at 10:30; Stop 07/29/16 at 10:31; Status DC Heparin Sodium (Porcine) 1,800 unit PRN Q6HRS PRN IV FOR UFH LEVEL LESS THAN 0.2 Last administered on 07/29/16 10:35; Start 07/29/16 at 10:15; Stop 07/30/16 at 08:00; Status DC Metoprolol Tartrate (Lopressor) 5 mg Q6HRS IVP Last administered on 08/04/16 05:34; Start 07/29/16 at 13:00; Stop 08/04/16 at 14:42; Status DC Aspirin 150 mg 150 mg DAILY [place] Last administered on 08/04/16 09:03; Start 07/30 at 09:00; Stop 08/04/16 at 14:42; Status DC Sodium Chloride 1,000 ml @ 60 mls/hr [id number] IV Last administered on 07/29/16 13:25; Start 07/29/16 at 13:30; Stop 07/29/16 at 13:31; Status DC Heparin Sodium (Porcine) 5000 unit/Sodium Chloride 505 ml @ 505 mls/hr 1X PERIOP ONCE IRR Last administered on 07/29/16 15:26; Start 07/29/16 at 14:00; Stop 07/29/16 at 14:59; Status DC Cefazolin Sodium/ Sodium Chloride (Ancef/Iv Sodium Chloride 0.9% 500ml Bag) 500 ml @ 500 mls/hr 1X PERIOP ONCE IRR Last administered on 07/29/16 15:26; Start 07/29/16 at 14:00; Stop 07/29/16 at 14:59; Status DC Gelatin (Gelfoam Size 12-7mm) 1 each STK-MED ONCE .ROUTE ; Start 07/29/16 at 13: 54; Stop 07/29/16 at 13:55; Status DC Cellulose 1 each STK-MED ONCE .ROUTE ; Start 07/29/16 at 13:54; Stop 07/29/16 at 13:55; Status DC Iohexol (Omnipaque 300 Mg/ml) 50 ml STK-MED ONCE .ROUTE ; Start 07/29/16 at 13:54 ; Stop 07/29/16 at 13:55; Status DC Gelatin (Gelfoam Size 100) 1 each STK-MED ONCE .ROUTE ; Start 07/29/16 at 13:54 ; Stop 07/29/16 at 13:55; Status DC Papaverine HCl 60 mg STK-MED ONCE .ROUTE ; Start 07/29/16 at 13:54; Stop 07/29/16 at 13:55; Status DC Thrombin 20,000 unit STK-MED ONCE TP ; Start 07/29/16 at 13:54; Stop 07/29/16 at 13:55; Status DC Midazolam HCl (Versed) 2 mg STK-MED ONCE .ROUTE ; Start 07/29/16 at 14:14; Stop 07/29/16 at 14:15; Status DC Fentanyl Citrate (Fentanyl 5ml Vial) 250 mcg STK-MED ONCE .ROUTE ; Start at 14:14; Stop 07/29/16 at 14:15; Status DC Rocuronium [place] 50 mg 50 mg STK-MED ONCE .ROUTE ; Start 07/29/16 at 14:14; Stop 07/29/16 at 14:15; Status DC Propofol (Diprivan) 20 ml @ As Directed STK-MED ONCE IV ; Start 07/29/16 at 14:14 ; Stop 07/29/16 at 14:15; Status DC Dexamethasone Sodium Phosphate (Decadron) 20 mg STK-MED ONCE .ROUTE ; Start 07/29 at 14:14; Stop 07/29/16 at 14:15; Status DC Ondansetron HCl (Zofran) 4 mg STK-MED ONCE .ROUTE ; Start 07/29/16 at 14:14; Stop 07/29/16 at 14:15; Status DC Lidocaine HCl 100 mg STK-MED ONCE .ROUTE ; Start 07/29/16 at 14:15; Stop 07/29/16 at 14:16; Status DC Succinylcholine Chloride (Anectine) 200 mg STK-MED ONCE .ROUTE ; Start 07/29/16 at 14:43; Stop 07/29/16 at 14:44; Status DC Phenylephrine HCl 1 mg STK-MED ONCE IV ; Start 07/29/16 at 15:01; Stop 07/29/16 at 15:02; Status DC Ephedrine Sulfate 50 mg 50 mg STK-MED ONCE .ROUTE ; Start 07/29/16 at 15:28; Stop 07/29/16 at 15:29; Status DC Insulin Human Regular/Sodium Chloride (Novolin R Vial/ Iv Normal Saline 150ml) 151.5 ml @ 7.29 mls/hr 1X ONCE IV ; Start 07/29/16 at 16:45; Stop 07/30/16 at 12 :52; Status DC Info (Anti-Coagulation Monitoring By Pharmacy) 1 each PRN DAILY PRN MC SEE COMMENTS Last administered on 07/29/16t 17:00; Start 07/29/16 at 17:00; Stop at 12:51; Status DC Heparin Sodium (Porcine) 10,000 unit STK-MED ONCE .ROUTE ; Start 07/29/16 at 17: 02; Stop 07/29/16 at 17:03; Status DC Neostigmine Methylsulfate 5 mg STK-MED ONCE .ROUTE ; Start 07/29/16 at 20:52; Stop 07/29/16 at 20:53; Status DC Glycopyrrolate (Robinul) 1 mg STK-MED ONCE .ROUTE ; Start 07/29/16 at 20:52; Stop 07/29/16 at 20:53; Status DC Fentanyl Citrate (Fentanyl 2ml Vial) 50 mcg PRN Q5MIN PRN IV Acute Pain; Start 07/29/16 at 21:15; Stop 07/30/16 at 21:14; Status DC Morphine Sulfate 4 mg PRN Q10MIN PRN IV Moderate Pain; Start 07/29/16 at 21:15; Stop 07/30/16 at 21:14; Status DC Hydromorphone HCl (Dilaudid) 0.4 mg PRN Q10MIN PRN IV Moderate to severe pain; Start 07/29/16 at 21:15; Stop 07/30/16 at 21:14; Status DC Meperidine HCl (Demerol) 12.5 mg PRN Q5MIN PRN IV SHIVERING; Start 07/29/16 at 21:15; Stop 07/30/16 at 00:00; Status DC Prochlorperazine Edisylate (Compazine) 5 mg PRN Q6HRS PRN IV Nausea/Vomiting, 1st Choice; Start 07/29/16 at 21:15; Stop 07/30/16 at 21:14; Status DC Diphenhydramine HCl 12.5 mg 12.5 mg PRN Q2HR PRN IV ITCHING; Start 07/29/16 at 21:15; Stop 07/30/16 at 21:14; Status DC Sodium Chloride (Iv Sodium Chloride 0.45%) 1,000 ml @ 100 mls/hr Q10H IV Last administered on 07/29/16 21:59; Start 07/29/16 at 22:00; Stop 07/30/16 at 09:41; Status DC Cefazolin Sodium/ Dextrose (Ancef 2gm Premix) 2 gm STK-MED ONCE IV ; Start at 17:35; Stop 07/30/16 at 08:53; Status DC Pantoprazole Sodium 40 mg 40 mg [id number] IVP Last administered on 08/01/16 17:18 ; Start 07/30/16 at 18:00; Stop 08/01/16 at 20:26; Status DC Sodium Chloride 1,000 ml @ 60 mls/hr [id number] IV Last administered on 3/8/17at 09:47; Start 07/30/16 at 09:45; Stop 07/30/16 at 12:47; Status DC Cefazolin Sodium/ Sodium Chloride (Ancef/Iv Sodium Chloride 0.9% 500ml Bag) 500 ml @ 500 mls/hr 1X PERIOP ONCE IRR Last administered on 07/31/16 13:47; Start 07/31/16 at 06:00; Stop 07/31/16 at 06:59; Status DC Insulin Detemir (Levemir) 15 units [id number] SQ Last administered on 07/30/16 12: 57; Start 07/30/16 at 13:00; Stop 08/01/16 at 08:36; Status DC Insulin Aspart 12 units 12 units 1X ONCE SQ ; Start 07/30/16 at 12:45; Stop 07/30 at 12:47; Status DC Amino Acids/ Electrolytes/ Dextrose (Clinimix E 4.25%-5% Solution) 1,000 ml @ 80 mls/hr [id number] IV Last administered on 08/02/16 17:50; Start 07/30/16 at 13: 00; Stop 08/03/16 at 03:41; Status DC Ondansetron HCl (Zofran) 4 mg PRN Q6HRS PRN IV Nausea; Start 07/31/16 at 07:00; Stop 08/01/16 at 06:59; Status DC Fentanyl Citrate (Fentanyl 2ml Vial) 25 mcg PRN Q5MIN PRN IV MILD PAIN; Start 07/31/16 at 07:00; Stop 08/01/16 at 06:59; Status DC Fentanyl Citrate (Fentanyl 2ml Vial) 50 mcg PRN Q5MIN PRN IV MODERATE PAIN; Start 07/31/16 at 07:00; Stop 08/01/16 at 06:59; Status DC Morphine Sulfate 1 mg 1 mg PRN Q10MIN PRN IV SEVERE PAIN; Start 07/31/16 at 07: 00; Stop 08/01/16 at 06:59; Status DC Lactated Ringer's (Iv Lactated Ringers) 1,000 ml @ 30 mls/hr Q24H IV Last administered on 07/31/16 15:53; Start 07/31/16 at 07:00; Stop 07/31/16 at 18:59; Status DC Lidocaine HCl 2 ml 1X PRN PRN ID IV START; Start 07/31/16 at 07:00; Stop at 06:59; Status DC Hydromorphone HCl (Dilaudid) 0.5 mg PRN Q10MIN PRN IV SEVERE PAIN, Second choice; Start 07/31/16 at 07:00; Stop 08/01/16 at 06:59; Status DC Prochlorperazine Edisylate (Compazine) 5 mg PACU PRN PRN IV NAUSEA; Start at 07:00; Stop 08/01/16 at 06:59; Status DC Insulin Detemir (Levemir) 10 units QHS SQ Last administered on 07/31/16 21:49; Start 07/31/16 at 21:00; Stop 08/01/16 at 08:36; Status DC Enalaprilat (Vasotec) 1.25 mg Q6HRS IV ; Start 07/31/16 at 12:00; Stop 07/31/16 at 12:00; Status DC Enalaprilat (Vasotec) 0.625 mg Q6HRS IV Last administered on 08/04/16 05:35; Start 07/31/16 at 12:00; Stop 08/04/16 at 14:42; Status DC Fentanyl Citrate (Fentanyl 2ml Vial) 100 mcg STK-MED ONCE .ROUTE ; Start at 12:49; Stop 07/31/16 at 12:50; Status DC Rocuronium [place] (Zemuron) 50 mg STK-MED ONCE .ROUTE ; Start 07/31/16 at 12:49 ; Stop 07/31/16 at 12:50; Status DC Lidocaine HCl 100 mg 100 mg STK-MED ONCE .ROUTE ; Start 07/31/16 at 13:17; Stop 07/31/16 at 13:18; Status DC Propofol (Diprivan) 20 ml @ As Directed STK-MED ONCE IV ; Start 07/31/16 at 13:17 ; Stop 07/31/16 at 13:18; Status DC Succinylcholine Chloride (Anectine) 200 mg STK-MED ONCE .ROUTE ; Start 07/31/16 at 13:30; Stop 07/31/16 at 13:31; Status DC Dexamethasone Sodium Phosphate (Decadron) 20 mg STK-MED ONCE .ROUTE ; Start 07/31 at 13:42; Stop 07/31/16 at 13:43; Status DC Ondansetron HCl (Zofran) 4 mg STK-MED ONCE .ROUTE ; Start 07/31/16 at 13:42; Stop 07/31/16 at 13:43; Status DC Phenylephrine HCl 1 mg STK-MED ONCE IV ; Start 07/31/16 at 13:47; Stop 07/31/16 at 13:48; Status DC Fentanyl Citrate (Fentanyl 2ml Vial) 100 mcg STK-MED ONCE .ROUTE ; Start at 14:26; Stop 07/31/16 at 14:27; Status DC Sevoflurane (Ultane) 60 ml STK-MED ONCE IH ; Start 07/31/16 at 15:13; Stop at 15:14; Status DC Insulin Aspart (Novolog Vial) 3 unit 1X ONCE SQ ; Start 07/31/16 at 15:45; Stop 07/31/16 at 15:45; Status DC Insulin Aspart (Novolog) 3 units 1X ONCE SQ ; Start 07/31/16 at 15:45; Stop 07/31 at 15:46; Status Cancel Insulin Aspart (Novolog Vial) 100 unit STK-MED ONCE SQ ; Start 07/31/16 at 15:41 ; Stop 07/31/16 at 15:42; Status DC Insulin Aspart (Novolog Vial) 3 unit 1X ONCE SQ ; Start 07/31/16 at 16:00; Stop 07/31/16 at 16:01; Status Cancel Insulin Aspart 3 unit 3 unit 1X ONCE SQ Last administered on 07/31/16 15:57; Start 07/31/16 at 16:00; Stop 07/31/16 at 16:01; Status DC Ceftriaxone Sodium/Sodium Chloride (Rocephin/Iv Sodium Chloride 0.9% 50ml) 50 ml @ 100 mls/hr Q24H IV Last administered on 08/07/16 14:35; Start 08/01/16 at 14:00 Insulin Aspart (Novolog) 0-9 UNITS Q6HRS SQ Last administered on 08/03/16 18: 14; Start 08/01/16 at 12:00; Stop 08/04/16 at 12:15; Status DC Insulin Detemir (Levemir) 30 units QHS SQ Last administered on 08/07/16 21:25 ; Start 08/01/16 at 21:00 Pantoprazole Sodium 40 mg 40 mg BID IVP Last administered on 08/08/16 08:18; Start 08/01/16 at 21:00 Amino Acids/ Electrolytes 1,000 ml @ 80 mls/hr [id number] IV Last administered on 08/03/16 05:09; Start 08/03/16 at 03:41; Stop 08/03/16 at 17:24; Status DC Amino Acids/ Electrolytes (Clinimix E 2.75%-5% Solution) 2,000 ml @ 80 mls/hr Q24H IV Last administered on 08/08/16 06:48; Start 08/03/16 at 17:24 Insulin Aspart (Novolog) 0-9 UNITS TIDWMEALS SQ Last administered on 08/06/16 13:17; Start 08/04/16 at 12:11 Aspirin (Ecotrin) 81 mg [id number] PO Last administered on 08/05/16 09:14; Start 08/05/16 at 08:00; Stop 08/05/16 at 13:50; Status DC Carvedilol (Coreg) 6.25 mg BIDWMEALS PO Last administered on 08/05/16 09:15; Start 08/04/16 at 17:00; Stop 08/05/16 at 13:50; Status DC Lisinopril (Prinivil) 5 mg HS PO Last administered on 08/04/16 21:06; Start at 21:00; Stop 08/05/16 at 13:50; Status DC Cefpodoxime Proxetil (Vantin) 200 mg BID PO ; Start 08/05/16 at 14:00; Stop at 14:08; Status DC Metronidazole (Flagyl) 500 mg BID PO ; Start 08/05/16 at 21:00; Status Cancel Furosemide (Lasix) 20 mg 1X ONCE IVP Last administered on 08/05/16 13:54; Start 08/05/16 at 13:15; Stop 08/05/16 at 13:16; Status DC Aspirin (Aspirin) 300 mg DAILY [place] Last administered on 08/08/16 08:18; Start 08/06/16 at 09:00 Metoprolol Tartrate (Lopressor) 5 mg Q6HRS IVP Last administered on 08/08/16 06:48; Start 08/05/16 at 18:00 Enalaprilat (Vasotec) 0.625 mg Q6H IV Last administered on 08/08/16 03:46; Start 08/05/16 at 16:00 Ondansetron HCl 4 mg 4 mg PRN Q6HRS PRN IV NAUSEA/VOMITING Last administered on 08/06/16 10:16; Start 08/05/16 at 17:15 Metronidazole (FLAGYL 500Mmg PREMIX) 100 ml @ 100 mls/hr Q12HR IV Last administered on 08/08/16 08:18; Start 08/05/16 at 22:00 Active Scripts Active Reported Hydrocodone-Apap 5-325 (Hydrocodone Bit/Acetaminophen) 1 Each Tablet 1 Tab PO Q4HRS PRN Vitals/I & O Vital Sign - Last 24 Hours 08/07/16 08/07/16 08/07/16 08/07/16 11:03 14:19 14:36 17:02 Temp 98.3 98.3 98.3 98.3 Pulse 72 62 69 58 Resp 19 B/P 102/52 138/64 138/64 140/54 Pulse Ox 95 O2 Delivery Nasal Cannula 08/07/16 08/07/16 08/07/16 08/07/16 18:33 19:00 20:00 21:22 Temp 98.6 98.6 Pulse 65 56 62 Resp 18 B/P 140/54 150/53 127/47 Pulse Ox 98 O2 Delivery Nasal Cannula Nasal Cannula O2 Flow Rate 2.0 2.0 08/07/16 08/08/16 08/08/16 08/08/16 23:00 00:44 03:00 03:46 Temp 98.6 99.0 98.6 99.0 Pulse 75 62 62 72 Resp 18 18 B/P 106/56 117/58 123/67 123/67 Pulse Ox 98 99 O2 Delivery Nasal Cannula Nasal Cannula O2 Flow Rate 2.0 2.0 08/08/16 08/08/16 08/08/16 06:48 07:50 08:00 Temp 98.8 98.8 Pulse 55 64 Resp 18 B/P 134/38 123/55 Pulse Ox 98 O2 Delivery Nasal Cannula Nasal Cannula O2 Flow Rate 2.0 2.0 Intake and Output 08/07/16 08/07/16 08/08/16 15:00 23:00 07:00 Intake Total 360 ml Output Total 450 ml 650 ml Balance -90 ml -650 ml SHERRY ALCANTARA MD Aug 08, 2016 10:34
--- NOTE | 2016-08-08 12:50 | PDOC ---
PROGRESS NOTES Chief Complaint Chief Complaint A/P s/p LEFt AKA () for Severe PVD Acute metabolic encephalopathy not much changed. Dm 1 with Hyperglycemia. NSTEMI, med management now Vasomotor nephropathy, Diabetes with severe chronic atherosclerosis, multilevel. 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 iv diuresis prn More clear today, able to eat well, If he continue to do that, change medications to oral. PPN for now Nutritional consult SSI AC and HS for hyperglycemia Follow vascular recommendations. No family available for answering question, unknown baseline status. Prognosis guarded. History of Present Illness History of Present Illness more awake no vomiting sitting in chair. Vitals Vitals Vital Signs Date Time Temp Pulse Resp B/P Pulse Ox O2 Delivery O2 Flow Rate FiO2 08/08/16 12:37 76 121/61 08/08/16 10:29 98.7 19 95 Nasal Cannula 2.0 98.7 Physical Exam General: Alert, Oriented X3, No acute distress, Other Heart: Regular rate, Normal S1, Normal S2, No murmurs, Other (2/6 systolic murmur to LLS border) Lungs: Clear Abdomen: Normal bowel sounds, Soft, No tenderness Extremities: Other Skin: No breakdown, Other Labs LABS Laboratory Tests Test 08/07/16 16:47 08/07/16 20:41 08/08/16 07:23 08/08/16 11:20 Glucose (Fingerstick) 78mg/dL (70-99) 332mg/dL (70-99) 149mg/dL (70-99) 152mg/dL (70-99) Assessment and Plan Assessmemt and Plan Problems Medical Problems: (1) Altered mental status Status: Acute (2) Dehydration Status: Acute (3) NSTEMI (non-ST elevated myocardial infarction) Status: Acute Problems: Comment Review of Relevant I have reviewed the following items chris (where applicable) has been applied. Labs Laboratory Tests Test 08/06/16 17:07 08/06/16 20:43 08/07/16 07:39 08/07/16 10:38 Glucose (Fingerstick) 164mg/dL (70-99) 163mg/dL (70-99) 85mg/dL (70-99) 60mg/dL (70-99) Test 08/07/16 10:56 08/07/16 16:47 08/07/16 20:41 08/08/16 07:23 Glucose (Fingerstick) 144mg/dL (70-99) 78mg/dL (70-99) 332mg/dL (70-99) 149mg/dL (70-99) Test 08/08/16 11:20 Glucose (Fingerstick) 152mg/dL (70-99) Laboratory Tests Test 08/07/16 16:47 08/07/16 20:41 08/08/16 07:23 08/08/16 11:20 Glucose (Fingerstick) 78mg/dL (70-99) 332mg/dL (70-99) 149mg/dL (70-99) 152mg/dL (70-99) Microbiology 07/28/16 Blood Culture - Final, Complete NO GROWTH AFTER 5 DAYS Medications Current Medications Naloxone HCl 0.4 mg 0.4 mg 1X ONCE IV Last administered on 07/28/16 21:30; Start 07/28/16 at 21:30; Stop 07/28/16 at 21:31; Status DC Sodium Chloride 1,000 ml @ 1,000 mls/hr 1X ONCE IV Last administered on 21:30; Start 07/28/16 at 21:30; Stop 07/28/16 at 22:29; Status DC Ceftriaxone Sodium 1 gm/ Sodium Chloride 50 ml @ 100 mls/hr Q24H IV Last administered on 07/30/16 21:39; Start 07/29/16 at 21:00; Stop 07/31/16 at 17:33; Status DC Ceftriaxone Sodium 50 ml @ 100 mls/hr 1X ONCE IV Last administered on 21:35; Start 07/28/16 at 22:00; Stop 07/28/16 at 22:29; Status DC Heparin Sodium/ Dextrose 500 ml @ 0 mls/hr CONT PRN IV SEE I/O RECORD Last administered on 07/29/16 21:46; Start 07/28/16 at 22:00; Stop 07/30/16 at 07:59; Status DC Heparin Sodium (Porcine) 2,200 unit PRN Q6HRS PRN IV FOR UFH LEVEL LESS THAN 0.2 Last administered on 07/28/16 23:14; Start 07/28/16 at 22:00; Stop 07/30/16 at 08:00; Status DC Ondansetron HCl 4 mg 4 mg PRN Q8HRS PRN IV NAUSEA/VOMITING; Start 07/28/16 at 22 :15; Stop 07/29/16 at 22:14; Status DC Sodium Chloride 1,000 ml @ 125 mls/hr Q8H IV Last administered on 07/29/16 08: 16; Start 07/28/16 at 22:01; Stop 07/29/16 at 13:04; Status DC Metronidazole (FLAGYL 500Mmg PREMIX) 100 ml @ 100 mls/hr Q12HR IV Last administered on 08/05/16 09:16; Start 07/28/16 at 22:30; Stop 08/05/16 at 13:02 ; Status DC Hydralazine HCl (Apresoline) 10 mg PRN Q4HRS PRN IVP ELEVATED BP, SEE COMMENTS ; Start 07/29/16 at 03:00 Insulin Aspart (Novolog) 0-9 UNITS TIDWMEALS SQ Last administered on 07/31/16 17:51; Start 07/29/16 at 08:00; Stop 08/01/16 at 08:36; Status DC Dextrose 12.5 gm PRN Q15MIN PRN IV SEE COMMENTS Last administered on 08/07/16 10:43; Start 07/29/16 at 03:00 Insulin Aspart (Novolog) 8 units 1X ONCE SQ Last administered on 07/29/16 08: 20; Start 07/29/16 at 08:30; Stop 07/29/16 at 08:31; Status DC Morphine Sulfate 2 mg PRN Q2HR PRN IV PAIN Last administered on 08/04/16 14:44 ; Start 07/29/16 at 09:00 Aspirin (Aspirin) 300 mg 1X ONCE IN Last administered on 07/29/16 13:17; Start 07/29/16 at 10:30; Stop 07/29/16 at 10:31; Status DC Heparin Sodium (Porcine) 1,800 unit PRN Q6HRS PRN IV FOR UFH LEVEL LESS THAN 0.2 Last administered on 07/29/16 10:35; Start 07/29/16 at 10:15; Stop 07/30/16 at 08:00; Status DC Metoprolol Tartrate (Lopressor) 5 mg Q6HRS IVP Last administered on 08/04/16 05:34; Start 07/29/16 at 13:00; Stop 08/04/16 at 14:42; Status DC Aspirin 150 mg 150 mg DAILY IN Last administered on 08/04/16 09:03; Start 07/30 at 09:00; Stop 08/04/16 at 14:42; Status DC Sodium Chloride 1,000 ml @ 60 mls/hr [id number] IV Last administered on 07/29/16 13:25; Start 07/29/16 at 13:30; Stop 07/29/16 at 13:31; Status DC Heparin Sodium (Porcine) 5000 unit/Sodium Chloride 505 ml @ 505 mls/hr 1X PERIOP ONCE IRR Last administered on 07/29/16 15:26; Start 07/29/16 at 14:00; Stop 07/29/16 at 14:59; Status DC Cefazolin Sodium/ Sodium Chloride (Ancef/Iv Sodium Chloride 0.9% 500ml Bag) 500 ml @ 500 mls/hr 1X PERIOP ONCE IRR Last administered on 07/29/16 15:26; Start 07/29/16 at 14:00; Stop 07/29/16 at 14:59; Status DC Gelatin (Gelfoam Size 12-7mm) 1 each STK-MED ONCE .ROUTE ; Start 07/29/16 at 13: 54; Stop 07/29/16 at 13:55; Status DC Cellulose 1 each STK-MED ONCE .ROUTE ; Start 07/29/16 at 13:54; Stop 07/29/16 at 13:55; Status DC Iohexol (Omnipaque 300 Mg/ml) 50 ml STK-MED ONCE .ROUTE ; Start 07/29/16 at 13:54 ; Stop 07/29/16 at 13:55; Status DC Gelatin (Gelfoam Size 100) 1 each STK-MED ONCE .ROUTE ; Start 07/29/16 at 13:54 ; Stop 07/29/16 at 13:55; Status DC Papaverine HCl 60 mg STK-MED ONCE .ROUTE ; Start 07/29/16 at 13:54; Stop 07/29/16 at 13:55; Status DC Thrombin 20,000 unit STK-MED ONCE TP ; Start 07/29/16 at 13:54; Stop 07/29/16 at 13:55; Status DC Midazolam HCl (Versed) 2 mg STK-MED ONCE .ROUTE ; Start 07/29/16 at 14:14; Stop 07/29/16 at 14:15; Status DC Fentanyl Citrate (Fentanyl 5ml Vial) 250 mcg STK-MED ONCE .ROUTE ; Start at 14:14; Stop 07/29/16 at 14:15; Status DC Rocuronium [place] 50 mg 50 mg STK-MED ONCE .ROUTE ; Start 07/29/16 at 14:14; Stop 07/29/16 at 14:15; Status DC Propofol (Diprivan) 20 ml @ As Directed STK-MED ONCE IV ; Start 07/29/16 at 14:14 ; Stop 07/29/16 at 14:15; Status DC Dexamethasone Sodium Phosphate (Decadron) 20 mg STK-MED ONCE .ROUTE ; Start 07/29 at 14:14; Stop 07/29/16 at 14:15; Status DC Ondansetron HCl (Zofran) 4 mg STK-MED ONCE .ROUTE ; Start 07/29/16 at 14:14; Stop 07/29/16 at 14:15; Status DC Lidocaine HCl 100 mg STK-MED ONCE .ROUTE ; Start 07/29/16 at 14:15; Stop 07/29/16 at 14:16; Status DC Succinylcholine Chloride (Anectine) 200 mg STK-MED ONCE .ROUTE ; Start 07/29/16 at 14:43; Stop 07/29/16 at 14:44; Status DC Phenylephrine HCl 1 mg STK-MED ONCE IV ; Start 07/29/16 at 15:01; Stop 07/29/16 at 15:02; Status DC Ephedrine Sulfate 50 mg 50 mg STK-MED ONCE .ROUTE ; Start 07/29/16 at 15:28; Stop 07/29/16 at 15:29; Status DC Insulin Human Regular/Sodium Chloride (Novolin R Vial/ Iv Normal Saline 150ml) 151.5 ml @ 7.29 mls/hr 1X ONCE IV ; Start 07/29/16 at 16:45; Stop 07/30/16 at 12 :52; Status DC Info (Anti-Coagulation Monitoring By Pharmacy) 1 each PRN DAILY PRN MC SEE COMMENTS Last administered on 07/29/16 17:00; Start 07/29/16 at 17:00; Stop at 12:51; Status DC Heparin Sodium (Porcine) 10,000 unit STK-MED ONCE .ROUTE ; Start 07/29/16 at 17: 02; Stop 07/29/16 at 17:03; Status DC Neostigmine Methylsulfate 5 mg STK-MED ONCE .ROUTE ; Start 07/29/16 at 20:52; Stop 07/29/16 at 20:53; Status DC Glycopyrrolate (Robinul) 1 mg STK-MED ONCE .ROUTE ; Start 07/29/16 at 20:52; Stop 07/29/16 at 20:53; Status DC Fentanyl Citrate (Fentanyl 2ml Vial) 50 mcg PRN Q5MIN PRN IV Acute Pain; Start 07/29/16 at 21:15; Stop 07/30/16 at 21:14; Status DC Morphine Sulfate 4 mg PRN Q10MIN PRN IV Moderate Pain; Start 07/29/16 at 21:15; Stop 07/30/16 at 21:14; Status DC Hydromorphone HCl (Dilaudid) 0.4 mg PRN Q10MIN PRN IV Moderate to severe pain; Start 07/29/16 at 21:15; Stop 07/30/16 at 21:14; Status DC Meperidine HCl (Demerol) 12.5 mg PRN Q5MIN PRN IV SHIVERING; Start 07/29/16 at 21:15; Stop 07/30/16 at 00:00; Status DC Prochlorperazine Edisylate (Compazine) 5 mg PRN Q6HRS PRN IV Nausea/Vomiting, 1st Choice; Start 07/29/16 at 21:15; Stop 07/30/16 at 21:14; Status DC Diphenhydramine HCl 12.5 mg 12.5 mg PRN Q2HR PRN IV ITCHING; Start 07/29/16 at 21:15; Stop 07/30/16 at 21:14; Status DC Sodium Chloride (Iv Sodium Chloride 0.45%) 1,000 ml @ 100 mls/hr Q10H IV Last administered on 07/29/16 21:59; Start 07/29/16 at 22:00; Stop 07/30/16 at 09:41; Status DC Cefazolin Sodium/ Dextrose (Ancef 2gm Premix) 2 gm STK-MED ONCE IV ; Start at 17:35; Stop 07/30/16 at 08:53; Status DC Pantoprazole Sodium 40 mg 40 mg [id number] IVP Last administered on 08/01/16 17:18 ; Start 07/30/16 at 18:00; Stop 08/01/16 at 20:26; Status DC Sodium Chloride 1,000 ml @ 60 mls/hr [id number] IV Last administered on 07/30/16 09:47; Start 07/30/16 at 09:45; Stop 07/30/16 at 12:47; Status DC Cefazolin Sodium/ Sodium Chloride (Ancef/Iv Sodium Chloride 0.9% 500ml Bag) 500 ml @ 500 mls/hr 1X PERIOP ONCE IRR Last administered on 07/31/16 13:47; Start 07/31/16 at 06:00; Stop 07/31/16 at 06:59; Status DC Insulin Detemir (Levemir) 15 units [id number] SQ Last administered on 07/30/16 12: 57; Start 07/30/16 at 13:00; Stop 08/01/16 at 08:36; Status DC Insulin Aspart 12 units 12 units 1X ONCE SQ ; Start 07/30/16 at 12:45; Stop 07/30 at 12:47; Status DC Amino Acids/ Electrolytes/ Dextrose (Clinimix E 4.25%-5% Solution) 1,000 ml @ 80 mls/hr [id number] IV Last administered on 08/02/16 17:50; Start 07/30/16 at 13: 00; Stop 08/03/16 at 03:41; Status DC Ondansetron HCl (Zofran) 4 mg PRN Q6HRS PRN IV Nausea; Start 07/31/16 at 07:00; Stop 08/01/16 at 06:59; Status DC Fentanyl Citrate (Fentanyl 2ml Vial) 25 mcg PRN Q5MIN PRN IV MILD PAIN; Start 07/31/16 at 07:00; Stop 08/01/16 at 06:59; Status DC Fentanyl Citrate (Fentanyl 2ml Vial) 50 mcg PRN Q5MIN PRN IV MODERATE PAIN; Start 07/31/16 at 07:00; Stop 08/01/16 at 06:59; Status DC Morphine Sulfate 1 mg 1 mg PRN Q10MIN PRN IV SEVERE PAIN; Start 07/31/16 at 07: 00; Stop 08/01/16 at 06:59; Status DC Lactated Ringer's (Iv Lactated Ringers) 1,000 ml @ 30 mls/hr Q24H IV Last administered on 07/31/16 15:53; Start 07/31/16 at 07:00; Stop 07/31/16 at 18:59; Status DC Lidocaine HCl 2 ml 1X PRN PRN ID IV START; Start 07/31/16 at 07:00; Stop at 06:59; Status DC Hydromorphone HCl (Dilaudid) 0.5 mg PRN Q10MIN PRN IV SEVERE PAIN, Second choice; Start 07/31/16 at 07:00; Stop 08/01/16 at 06:59; Status DC Prochlorperazine Edisylate (Compazine) 5 mg PACU PRN PRN IV NAUSEA; Start at 07:00; Stop 08/01/16 at 06:59; Status DC Insulin Detemir (Levemir) 10 units QHS SQ Last administered on 07/31/16 21:49; Start 07/31/16 at 21:00; Stop 08/01/16 at 08:36; Status DC Enalaprilat (Vasotec) 1.25 mg Q6HRS IV ; Start 07/31/16 at 12:00; Stop 07/31/16 at 12:00; Status DC Enalaprilat (Vasotec) 0.625 mg Q6HRS IV Last administered on 08/04/16 05:35; Start 07/31/16 at 12:00; Stop 08/04/16 at 14:42; Status DC Fentanyl Citrate (Fentanyl 2ml Vial) 100 mcg STK-MED ONCE .ROUTE ; Start at 12:49; Stop 07/31/16 at 12:50; Status DC Rocuronium [place] (Zemuron) 50 mg STK-MED ONCE .ROUTE ; Start 07/31/16 at 12:49 ; Stop 07/31/16 at 12:50; Status DC Lidocaine HCl 100 mg 100 mg STK-MED ONCE .ROUTE ; Start 07/31/16 at 13:17; Stop 07/31/16 at 13:18; Status DC Propofol (Diprivan) 20 ml @ As Directed STK-MED ONCE IV ; Start 07/31/16 at 13:17 ; Stop 07/31/16 at 13:18; Status DC Succinylcholine Chloride (Anectine) 200 mg STK-MED ONCE .ROUTE ; Start 07/31/16 at 13:30; Stop 07/31/16 at 13:31; Status DC Dexamethasone Sodium Phosphate (Decadron) 20 mg STK-MED ONCE .ROUTE ; Start 07/31 at 13:42; Stop 07/31/16 at 13:43; Status DC Ondansetron HCl (Zofran) 4 mg STK-MED ONCE .ROUTE ; Start 07/31/16 at 13:42; Stop 07/31/16 at 13:43; Status DC Phenylephrine HCl 1 mg STK-MED ONCE IV ; Start 07/31/16 at 13:47; Stop 07/31/16 at 13:48; Status DC Fentanyl Citrate (Fentanyl 2ml Vial) 100 mcg STK-MED ONCE .ROUTE ; Start at 14:26; Stop 07/31/16 at 14:27; Status DC Sevoflurane (Ultane) 60 ml STK-MED ONCE IH ; Start 07/31/16 at 15:13; Stop at 15:14; Status DC Insulin Aspart (Novolog Vial) 3 unit 1X ONCE SQ ; Start 07/31/16 at 15:45; Stop 07/31/16 at 15:45; Status DC Insulin Aspart (Novolog) 3 units 1X ONCE SQ ; Start 07/31/16 at 15:45; Stop 07/31 at 15:46; Status Cancel Insulin Aspart (Novolog Vial) 100 unit STK-MED ONCE SQ ; Start 07/31/16 at 15:41 ; Stop 07/31/16 at 15:42; Status DC Insulin Aspart (Novolog Vial) 3 unit 1X ONCE SQ ; Start 07/31/16 at 16:00; Stop 07/31/16 at 16:01; Status Cancel Insulin Aspart 3 unit 3 unit 1X ONCE SQ Last administered on 07/31/16 15:57; Start 07/31/16 at 16:00; Stop 07/31/16 at 16:01; Status DC Ceftriaxone Sodium/Sodium Chloride (Rocephin/Iv Sodium Chloride 0.9% 50ml) 50 ml @ 100 mls/hr Q24H IV Last administered on 08/07/16 14:35; Start 08/01/16 at 14:00 Insulin Aspart (Novolog) 0-9 UNITS Q6HRS SQ Last administered on 08/03/16 18: 14; Start 08/01/16 at 12:00; Stop 08/04/16 at 12:15; Status DC Insulin Detemir (Levemir) 30 units QHS SQ Last administered on 08/07/16 21:25 ; Start 08/01/16 at 21:00 Pantoprazole Sodium 40 mg 40 mg BID IVP Last administered on 08/08/16 08:18; Start 08/01/16 at 21:00 Amino Acids/ Electrolytes 1,000 ml @ 80 mls/hr [id number] IV Last administered on 08/03/16 05:09; Start 08/03/16 at 03:41; Stop 08/03/16 at 17:24; Status DC Amino Acids/ Electrolytes (Clinimix E 2.75%-5% Solution) 2,000 ml @ 80 mls/hr Q24H IV Last administered on 08/08/16 06:48; Start 08/03/16 at 17:24 Insulin Aspart (Novolog) 0-9 UNITS TIDWMEALS SQ Last administered on 08/06/16 13:17; Start 08/04/16 at 12:11 Aspirin (Ecotrin) 81 mg [id number] PO Last administered on 08/05/16 09:14; Start 08/05/16 at 08:00; Stop 08/05/16 at 13:50; Status DC Carvedilol (Coreg) 6.25 mg BIDWMEALS PO Last administered on 08/05/16 09:15; Start 08/04/16 at 17:00; Stop 08/05/16 at 13:50; Status DC Lisinopril (Prinivil) 5 mg HS PO Last administered on 08/04/16 21:06; Start at 21:00; Stop 08/05/16 at 13:50; Status DC Cefpodoxime Proxetil (Vantin) 200 mg BID PO ; Start 08/05/16 at 14:00; Stop at 14:08; Status DC Metronidazole (Flagyl) 500 mg BID PO ; Start 08/05/16 at 21:00; Status Cancel Furosemide (Lasix) 20 mg 1X ONCE IVP Last administered on 08/05/16 13:54; Start 08/05/16 at 13:15; Stop 08/05/16 at 13:16; Status DC Aspirin (Aspirin) 300 mg DAILY IN Last administered on 08/08/16 08:18; Start 08/06/16 at 09:00 Metoprolol Tartrate (Lopressor) 5 mg Q6HRS IVP Last administered on 08/08/16 12:37; Start 08/05/16 at 18:00 Enalaprilat (Vasotec) 0.625 mg Q6H IV Last administered on 08/08/16 03:46; Start 08/05/16 at 16:00 Ondansetron HCl 4 mg 4 mg PRN Q6HRS PRN IV NAUSEA/VOMITING Last administered on 08/06/16 10:16; Start 08/05/16 at 17:15 Metronidazole (FLAGYL 500Mmg PREMIX) 100 ml @ 100 mls/hr Q12HR IV Last administered on 08/08/16 08:18; Start 08/05/16 at 22:00 Active Scripts Active Reported Hydrocodone-Apap 5-325 (Hydrocodone Bit/Acetaminophen) 1 Each Tablet 1 Tab PO Q4HRS PRN Vitals/I & O Vital Sign - Last 24 Hours 08/07/16 08/07/16 08/07/16 08/07/16 14:19 14:36 17:02 18:33 Temp 98.3 98.3 Pulse 62 69 58 65 B/P 138/64 138/64 140/54 140/54 08/07/16 08/07/16 08/07/16 08/07/16 19:00 20:00 21:22 23:00 Temp 98.6 98.6 98.6 98.6 Pulse 56 62 75 Resp 18 18 B/P 150/53 127/47 106/56 Pulse Ox 98 98 O2 Delivery Nasal Cannula Nasal Cannula Nasal Cannula O2 Flow Rate 2.0 2.0 2.0 08/08/16 08/08/16 08/08/16 08/08/16 00:44 03:00 03:46 06:48 Temp 99.0 99.0 Pulse 62 62 72 55 Resp 18 B/P 117/58 123/67 123/67 134/38 Pulse Ox 99 O2 Delivery Nasal Cannula O2 Flow Rate 2.0 08/08/16 08/08/16 08/08/16 08/08/16 07:50 08:00 10:29 12:37 Temp 98.8 98.7 98.8 98.7 Pulse 64 62 76 Resp 18 19 B/P 123/55 117/50 121/61 Pulse Ox 98 95 O2 Delivery Nasal Cannula Nasal Cannula Nasal Cannula O2 Flow Rate 2.0 2.0 2.0 Intake and Output 08/07/16 08/07/16 08/08/16 15:00 23:00 07:00 Intake Total 360 ml Output Total 450 ml 650 ml Balance -90 ml -650 ml Nutrition Consultation Dietary Evaluation: Recommendations by RD: Increase Calorie Intake Comments: -Rec. 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
[2016-08-08 14:12] VITALS: BP 100/50
[2016-08-08] MEDS: CEFTRIAXONE SODIUM 1 GM in IV NORMAL SALINE 50ML 50 ML IV SCH (14:46)
--- NOTE | 2016-08-08 15:22 | PDOC2 ---
PALLIATIVE CARE Palliative Care Note Palliative Care Patient seen 1200. More alert. Slow to answer questions. No return call or visit from neighbor Will continue to follow to address goals of care and assistance with decisions for health care. Awaiting placement per ILIANA GIL Aug 08, 2016 15:22
[2016-08-08 19:42] VITALS: BP 119/60
[2016-08-08] MEDS: INSULIN DETEMIR 300 UNITS/3 ML INSULN.PEN. SQ SCH (21:18)
[2016-08-08 22:39] VITALS: BP 126/54
[2016-08-09] MEDS: METOPROLOL TARTRATE 5 MG/5 ML VIAL. IVP SCH ×4 (00:08→17:10)
[2016-08-09 02:32] VITALS: BP 150/55
[2016-08-09] MEDS: ENALAPRILAT 1.25 MG/ML VIAL. IV SCH ×4 (03:55→22:25)
[2016-08-09 07:00] VITALS: BP 130/67
[2016-08-09] MEDS: ASPIRIN 300 MG SUPP.RECT PR SCH (08:15)
[2016-08-09] MEDS: PANTOPRAZOLE IV PUSH 40 MG VIAL. IVP SCH ×2 (08:16→21:11)
[2016-08-09] MEDS: INSULIN ASPART 300 UNITS/3 ML INSULN.PEN SQ SCH ×3 (08:21→16:39)
--- NOTE | 2016-08-09 10:08 | PDOC ---
PROGRESS NOTES Chief Complaint Chief Complaint A/P s/p LEFt AKA () for Severe PVD Acute metabolic encephalopathy resolved. Dm 1 with Hyperglycemia. NSTEMI, med management now Vasomotor nephropathy, Diabetes with severe chronic atherosclerosis, multilevel. 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 More clear today, increase oral intake. PPN for now, decreased rate SSI AC and HS for hyperglycemia Follow vascular recommendations. No family available for answering question, unknown baseline status. Prognosis guarded. History of Present Illness History of Present Illness more awake no vomiting sitting in chair. Vitals Vitals Vital Signs Date Time Temp Pulse Resp B/P Pulse Ox O2 Delivery O2 Flow Rate FiO2 08/09/16 08:00 Nasal Cannula 2.0 08/09/16 07:00 98.8 60 18 130/67 99 98.8 Physical Exam General: Alert, Oriented X3, No acute distress, Other Heart: Regular rate, Normal S1, Normal S2, No murmurs, Other (2/6 systolic murmur to LLS border) Lungs: Clear Abdomen: Normal bowel sounds, Soft, No tenderness Extremities: Other Skin: No breakdown, Other Labs LABS Laboratory Tests Test 08/08/16 11:20 08/08/16 16:33 08/08/16 21:02 08/09/16 08:14 Glucose (Fingerstick) 152mg/dL (70-99) 190mg/dL (70-99) 250mg/dL (70-99) 158mg/dL (70-99) Assessment and Plan Assessmemt and Plan Problems Medical Problems: (1) Altered mental status Status: Acute (2) Dehydration Status: Acute (3) NSTEMI (non-ST elevated myocardial infarction) Status: Acute Problems: Comment Review of Relevant I have reviewed the following items chris (where applicable) has been applied. Labs Laboratory Tests Test 08/07/16 10:38 08/07/16 10:56 08/07/16 16:47 08/07/16 20:41 Glucose (Fingerstick) 60mg/dL (70-99) 144mg/dL (70-99) 78mg/dL (70-99) 332mg/dL (70-99) Test 08/08/16 07:23 08/08/16 11:20 08/08/16 16:33 08/08/16 21:02 Glucose (Fingerstick) 149mg/dL (70-99) 152mg/dL (70-99) 190mg/dL (70-99) 250mg/dL (70-99) Test 08/09/16 08:14 Glucose (Fingerstick) 158mg/dL (70-99) Laboratory Tests Test 08/08/16 11:20 08/08/16 16:33 08/08/16 21:02 08/09/16 08:14 Glucose (Fingerstick) 152mg/dL (70-99) 190mg/dL (70-99) 250mg/dL (70-99) 158mg/dL (70-99) Microbiology 07/28/16 Blood Culture - Final, Complete NO GROWTH AFTER 5 DAYS Medications Current Medications Naloxone HCl 0.4 mg 0.4 mg 1X ONCE IV Last administered on 07/28/16 21:30; Start 07/28/16 at 21:30; Stop 07/28/16 at 21:31; Status DC Sodium Chloride 1,000 ml @ 1,000 mls/hr 1X ONCE IV Last administered on 21:30; Start 07/28/16 at 21:30; Stop 07/28/16 at 22:29; Status DC Ceftriaxone Sodium 1 gm/ Sodium Chloride 50 ml @ 100 mls/hr Q24H IV Last administered on 07/30/16 21:39; Start 07/29/16 at 21:00; Stop 07/31/16 at 17:33; Status DC Ceftriaxone Sodium 50 ml @ 100 mls/hr 1X ONCE IV Last administered on 21:35; Start 07/28/16 at 22:00; Stop 07/28/16 at 22:29; Status DC Heparin Sodium/ Dextrose 500 ml @ 0 mls/hr CONT PRN IV SEE I/O RECORD Last administered on 07/29/16 21:46; Start 07/28/16 at 22:00; Stop 07/30/16 at 07:59; Status DC Heparin Sodium (Porcine) 2,200 unit PRN Q6HRS PRN IV FOR UFH LEVEL LESS THAN 0.2 Last administered on 07/28/16 23:14; Start 07/28/16 at 22:00; Stop 07/30/16 at 08:00; Status DC Ondansetron HCl 4 mg 4 mg PRN Q8HRS PRN IV NAUSEA/VOMITING; Start 07/28/16 at 22 :15; Stop 07/29/16 at 22:14; Status DC Sodium Chloride 1,000 ml @ 125 mls/hr Q8H IV Last administered on 07/29/16 08: 16; Start 07/28/16 at 22:01; Stop 07/29/16 at 13:04; Status DC Metronidazole (FLAGYL 500Mmg PREMIX) 100 ml @ 100 mls/hr Q12HR IV Last administered on 08/05/16 09:16; Start 07/28/16 at 22:30; Stop 08/05/16 at 13:02 ; Status DC Hydralazine HCl (Apresoline) 10 mg PRN Q4HRS PRN IVP ELEVATED BP, SEE COMMENTS ; Start 07/29/16 at 03:00 Insulin Aspart (Novolog) 0-9 UNITS TIDWMEALS SQ Last administered on 07/31/16 17:51; Start 07/29/16 at 08:00; Stop 08/01/16 at 08:36; Status DC Dextrose 12.5 gm PRN Q15MIN PRN IV SEE COMMENTS Last administered on 08/07/16 10:43; Start 07/29/16 at 03:00 Insulin Aspart (Novolog) 8 units 1X ONCE SQ Last administered on 07/29/16 08: 20; Start 07/29/16 at 08:30; Stop 07/29/16 at 08:31; Status DC Morphine Sulfate 2 mg PRN Q2HR PRN IV PAIN Last administered on 08/04/16 14:44 ; Start 07/29/16 at 09:00 Aspirin (Aspirin) 300 mg 1X ONCE HI Last administered on 07/29/16 13:17; Start 07/29/16 at 10:30; Stop 07/29/16 at 10:31; Status DC Heparin Sodium (Porcine) 1,800 unit PRN Q6HRS PRN IV FOR UFH LEVEL LESS THAN 0.2 Last administered on 07/29/16 10:35; Start 07/29/16 at 10:15; Stop 07/30/16 at 08:00; Status DC Metoprolol Tartrate (Lopressor) 5 mg Q6HRS IVP Last administered on 08/04/16 05:34; Start 07/29/16 at 13:00; Stop 08/04/16 at 14:42; Status DC Aspirin 150 mg 150 mg DAILY HI Last administered on 08/04/16 09:03; Start 07/30 at 09:00; Stop 08/04/16 at 14:42; Status DC Sodium Chloride 1,000 ml @ 60 mls/hr [id number] IV Last administered on 07/29/16 13:25; Start 07/29/16 at 13:30; Stop 07/29/16 at 13:31; Status DC Heparin Sodium (Porcine) 5000 unit/Sodium Chloride 505 ml @ 505 mls/hr 1X PERIOP ONCE IRR Last administered on 07/29/16 15:26; Start 07/29/16 at 14:00; Stop 07/29/16 at 14:59; Status DC Cefazolin Sodium/ Sodium Chloride (Ancef/Iv Sodium Chloride 0.9% 500ml Bag) 500 ml @ 500 mls/hr 1X PERIOP ONCE IRR Last administered on 07/29/16 15:26; Start 07/29/16 at 14:00; Stop 07/29/16 at 14:59; Status DC Gelatin (Gelfoam Size 12-7mm) 1 each STK-MED ONCE .ROUTE ; Start 07/29/16 at 13: 54; Stop 07/29/16 at 13:55; Status DC Cellulose 1 each STK-MED ONCE .ROUTE ; Start 07/29/16 at 13:54; Stop 07/29/16 at 13:55; Status DC Iohexol (Omnipaque 300 Mg/ml) 50 ml STK-MED ONCE .ROUTE ; Start 07/29/16 at 13:54 ; Stop 07/29/16 at 13:55; Status DC Gelatin (Gelfoam Size 100) 1 each STK-MED ONCE .ROUTE ; Start 07/29/16 at 13:54 ; Stop 07/29/16 at 13:55; Status DC Papaverine HCl 60 mg STK-MED ONCE .ROUTE ; Start 07/29/16 at 13:54; Stop 07/29/16 at 13:55; Status DC Thrombin 20,000 unit STK-MED ONCE TP ; Start 07/29/16 at 13:54; Stop 07/29/16 at 13:55; Status DC Midazolam HCl (Versed) 2 mg STK-MED ONCE .ROUTE ; Start 07/29/16 at 14:14; Stop 07/29/16 at 14:15; Status DC Fentanyl Citrate (Fentanyl 5ml Vial) 250 mcg STK-MED ONCE .ROUTE ; Start at 14:14; Stop 07/29/16 at 14:15; Status DC Rocuronium [place] 50 mg 50 mg STK-MED ONCE .ROUTE ; Start 07/29/16 at 14:14; Stop 07/29/16 at 14:15; Status DC Propofol (Diprivan) 20 ml @ As Directed STK-MED ONCE IV ; Start 07/29/16 at 14:14 ; Stop 07/29/16 at 14:15; Status DC Dexamethasone Sodium Phosphate (Decadron) 20 mg STK-MED ONCE .ROUTE ; Start 07/29 at 14:14; Stop 07/29/16 at 14:15; Status DC Ondansetron HCl (Zofran) 4 mg STK-MED ONCE .ROUTE ; Start 07/29/16 at 14:14; Stop 07/29/16 at 14:15; Status DC Lidocaine HCl 100 mg STK-MED ONCE .ROUTE ; Start 07/29/16 at 14:15; Stop 07/29/16 at 14:16; Status DC Succinylcholine Chloride (Anectine) 200 mg STK-MED ONCE .ROUTE ; Start 07/29/16 at 14:43; Stop 07/29/16 at 14:44; Status DC Phenylephrine HCl 1 mg STK-MED ONCE IV ; Start 07/29/16 at 15:01; Stop 07/29/16 at 15:02; Status DC Ephedrine Sulfate 50 mg 50 mg STK-MED ONCE .ROUTE ; Start 07/29/16 at 15:28; Stop 07/29/16 at 15:29; Status DC Insulin Human Regular/Sodium Chloride (Novolin R Vial/ Iv Normal Saline 150ml) 151.5 ml @ 7.29 mls/hr 1X ONCE IV ; Start 07/29/16 at 16:45; Stop 07/30/16 at 12 :52; Status DC Info (Anti-Coagulation Monitoring By Pharmacy) 1 each PRN DAILY PRN MC SEE COMMENTS Last administered on 07/29/16 17:00; Start 07/29/16 at 17:00; Stop at 12:51; Status DC Heparin Sodium (Porcine) 10,000 unit STK-MED ONCE .ROUTE ; Start 07/29/16 at 17: 02; Stop 07/29/16 at 17:03; Status DC Neostigmine Methylsulfate 5 mg STK-MED ONCE .ROUTE ; Start 07/29/16 at 20:52; Stop 07/29/16 at 20:53; Status DC Glycopyrrolate (Robinul) 1 mg STK-MED ONCE .ROUTE ; Start 07/29/16 at 20:52; Stop 07/29/16 at 20:53; Status DC Fentanyl Citrate (Fentanyl 2ml Vial) 50 mcg PRN Q5MIN PRN IV Acute Pain; Start 07/29/16 at 21:15; Stop 07/30/16 at 21:14; Status DC Morphine Sulfate 4 mg PRN Q10MIN PRN IV Moderate Pain; Start 07/29/16 at 21:15; Stop 07/30/16 at 21:14; Status DC Hydromorphone HCl (Dilaudid) 0.4 mg PRN Q10MIN PRN IV Moderate to severe pain; Start 07/29/16 at 21:15; Stop 07/30/16 at 21:14; Status DC Meperidine HCl (Demerol) 12.5 mg PRN Q5MIN PRN IV SHIVERING; Start 07/29/16 at 21:15; Stop 07/30/16 at 00:00; Status DC Prochlorperazine Edisylate (Compazine) 5 mg PRN Q6HRS PRN IV Nausea/Vomiting, 1st Choice; Start 07/29/16 at 21:15; Stop 07/30/16 at 21:14; Status DC Diphenhydramine HCl 12.5 mg 12.5 mg PRN Q2HR PRN IV ITCHING; Start 07/29/16 at 21:15; Stop 07/30/16 at 21:14; Status DC Sodium Chloride (Iv Sodium Chloride 0.45%) 1,000 ml @ 100 mls/hr Q10H IV Last administered on 07/29/16 21:59; Start 07/29/16 at 22:00; Stop 07/30/16 at 09:41; Status DC Cefazolin Sodium/ Dextrose (Ancef 2gm Premix) 2 gm STK-MED ONCE IV ; Start at 17:35; Stop 07/30/16 at 08:53; Status DC Pantoprazole Sodium 40 mg 40 mg [id number] IVP Last administered on 08/01/16 17:18 ; Start 07/30/16 at 18:00; Stop 08/01/16 at 20:26; Status DC Sodium Chloride 1,000 ml @ 60 mls/hr [id number] IV Last administered on 07/30/16 09:47; Start 07/30/16 at 09:45; Stop 07/30/16 at 12:47; Status DC Cefazolin Sodium/ Sodium Chloride (Ancef/Iv Sodium Chloride 0.9% 500ml Bag) 500 ml @ 500 mls/hr 1X PERIOP ONCE IRR Last administered on 07/31/16 13:47; Start 07/31/16 at 06:00; Stop 07/31/16 at 06:59; Status DC Insulin Detemir (Levemir) 15 units [id number] SQ Last administered on 07/30/16 12: 57; Start 07/30/16 at 13:00; Stop 08/01/16 at 08:36; Status DC Insulin Aspart 12 units 12 units 1X ONCE SQ ; Start 07/30/16 at 12:45; Stop 07/30 at 12:47; Status DC Amino Acids/ Electrolytes/ Dextrose (Clinimix E 4.25%-5% Solution) 1,000 ml @ 80 mls/hr [id number] IV Last administered on 08/02/16 17:50; Start 07/30/16 at 13: 00; Stop 08/03/16 at 03:41; Status DC Ondansetron HCl (Zofran) 4 mg PRN Q6HRS PRN IV Nausea; Start 07/31/16 at 07:00; Stop 08/01/16 at 06:59; Status DC Fentanyl Citrate (Fentanyl 2ml Vial) 25 mcg PRN Q5MIN PRN IV MILD PAIN; Start 07/31/16 at 07:00; Stop 08/01/16 at 06:59; Status DC Fentanyl Citrate (Fentanyl 2ml Vial) 50 mcg PRN Q5MIN PRN IV MODERATE PAIN; Start 07/31/16 at 07:00; Stop 08/01/16 at 06:59; Status DC Morphine Sulfate 1 mg 1 mg PRN Q10MIN PRN IV SEVERE PAIN; Start 07/31/16 at 07: 00; Stop 08/01/16 at 06:59; Status DC Lactated Ringer's (Iv Lactated Ringers) 1,000 ml @ 30 mls/hr Q24H IV Last administered on 07/31/16 15:53; Start 07/31/16 at 07:00; Stop 07/31/16 at 18:59; Status DC Lidocaine HCl 2 ml 1X PRN PRN ID IV START; Start 07/31/16 at 07:00; Stop at 06:59; Status DC Hydromorphone HCl (Dilaudid) 0.5 mg PRN Q10MIN PRN IV SEVERE PAIN, Second choice; Start 07/31/16 at 07:00; Stop 08/01/16 at 06:59; Status DC Prochlorperazine Edisylate (Compazine) 5 mg PACU PRN PRN IV NAUSEA; Start at 07:00; Stop 08/01/16 at 06:59; Status DC Insulin Detemir (Levemir) 10 units QHS SQ Last administered on 07/31/16 21:49; Start 07/31/16 at 21:00; Stop 08/01/16 at 08:36; Status DC Enalaprilat (Vasotec) 1.25 mg Q6HRS IV ; Start 07/31/16 at 12:00; Stop 07/31/16 at 12:00; Status DC Enalaprilat (Vasotec) 0.625 mg Q6HRS IV Last administered on 08/04/16 05:35; Start 07/31/16 at 12:00; Stop 08/04/16 at 14:42; Status DC Fentanyl Citrate (Fentanyl 2ml Vial) 100 mcg STK-MED ONCE .ROUTE ; Start at 12:49; Stop 07/31/16 at 12:50; Status DC Rocuronium [place] (Zemuron) 50 mg STK-MED ONCE .ROUTE ; Start 07/31/16 at 12:49 ; Stop 07/31/16 at 12:50; Status DC Lidocaine HCl 100 mg 100 mg STK-MED ONCE .ROUTE ; Start 07/31/16 at 13:17; Stop 07/31/16 at 13:18; Status DC Propofol (Diprivan) 20 ml @ As Directed STK-MED ONCE IV ; Start 07/31/16 at 13:17 ; Stop 07/31/16 at 13:18; Status DC Succinylcholine Chloride (Anectine) 200 mg STK-MED ONCE .ROUTE ; Start 07/31/16 at 13:30; Stop 07/31/16 at 13:31; Status DC Dexamethasone Sodium Phosphate (Decadron) 20 mg STK-MED ONCE .ROUTE ; Start 07/31 at 13:42; Stop 07/31/16 at 13:43; Status DC Ondansetron HCl (Zofran) 4 mg STK-MED ONCE .ROUTE ; Start 07/31/16 at 13:42; Stop 07/31/16 at 13:43; Status DC Phenylephrine HCl 1 mg STK-MED ONCE IV ; Start 07/31/16 at 13:47; Stop 07/31/16 at 13:48; Status DC Fentanyl Citrate (Fentanyl 2ml Vial) 100 mcg STK-MED ONCE .ROUTE ; Start at 14:26; Stop 07/31/16 at 14:27; Status DC Sevoflurane (Ultane) 60 ml STK-MED ONCE IH ; Start 07/31/16 at 15:13; Stop at 15:14; Status DC Insulin Aspart (Novolog Vial) 3 unit 1X ONCE SQ ; Start 07/31/16 at 15:45; Stop 07/31/16 at 15:45; Status DC Insulin Aspart (Novolog) 3 units 1X ONCE SQ ; Start 07/31/16 at 15:45; Stop 07/31 at 15:46; Status Cancel Insulin Aspart (Novolog Vial) 100 unit STK-MED ONCE SQ ; Start 07/31/16 at 15:41 ; Stop 07/31/16 at 15:42; Status DC Insulin Aspart (Novolog Vial) 3 unit 1X ONCE SQ ; Start 07/31/16 at 16:00; Stop 07/31/16 at 16:01; Status Cancel Insulin Aspart 3 unit 3 unit 1X ONCE SQ Last administered on 07/31/16 15:57; Start 07/31/16 at 16:00; Stop 07/31/16 at 16:01; Status DC Ceftriaxone Sodium/Sodium Chloride (Rocephin/Iv Sodium Chloride 0.9% 50ml) 50 ml @ 100 mls/hr Q24H IV Last administered on 08/08/16 14:46; Start 08/01/16 at 14:00; Stop 08/08/16 at 15:27; Status DC Insulin Aspart (Novolog) 0-9 UNITS Q6HRS SQ Last administered on 08/03/16 18: 14; Start 08/01/16 at 12:00; Stop 08/04/16 at 12:15; Status DC Insulin Detemir (Levemir) 30 units QHS SQ Last administered on 08/08/16 21:18 ; Start 08/01/16 at 21:00 Pantoprazole Sodium 40 mg 40 mg BID IVP Last administered on 08/09/16 08:16; Start 08/01/16 at 21:00 Amino Acids/ Electrolytes 1,000 ml @ 80 mls/hr [id number] IV Last administered on 08/03/16 05:09; Start 08/03/16 at 03:41; Stop 08/03/16 at 17:24; Status DC Amino Acids/ Electrolytes (Clinimix E 2.75%-5% Solution) 2,000 ml @ 80 mls/hr Q24H IV Last administered on 08/08/16 06:48; Start 08/03/16 at 17:24 Insulin Aspart (Novolog) 0-9 UNITS TIDWMEALS SQ Last administered on 08/09/16 08:21; Start 08/04/16 at 12:11 Aspirin (Ecotrin) 81 mg [id number] PO Last administered on 08/05/16 09:14; Start 08/05/16 at 08:00; Stop 08/05/16 at 13:50; Status DC Carvedilol (Coreg) 6.25 mg BIDWMEALS PO Last administered on 08/05/16 09:15; Start 08/04/16 at 17:00; Stop 08/05/16 at 13:50; Status DC Lisinopril (Prinivil) 5 mg HS PO Last administered on 08/04/16 21:06; Start at 21:00; Stop 08/05/16 at 13:50; Status DC Cefpodoxime Proxetil (Vantin) 200 mg BID PO ; Start 08/05/16 at 14:00; Stop at 14:08; Status DC Metronidazole (Flagyl) 500 mg BID PO ; Start 08/05/16 at 21:00; Status Cancel Furosemide (Lasix) 20 mg 1X ONCE IVP Last administered on 08/05/16 13:54; Start 08/05/16 at 13:15; Stop 08/05/16 at 13:16; Status DC Aspirin (Aspirin) 300 mg DAILY HI Last administered on 08/09/16 08:15; Start 08/06/16 at 09:00 Metoprolol Tartrate (Lopressor) 5 mg Q6HRS IVP Last administered on 08/09/16 00:08; Start 08/05/16 at 18:00 Enalaprilat (Vasotec) 0.625 mg Q6H IV Last administered on 08/09/16 03:55; Start 08/05/16 at 16:00 Ondansetron HCl 4 mg 4 mg PRN Q6HRS PRN IV NAUSEA/VOMITING Last administered on 08/06/16 10:16; Start 08/05/16 at 17:15 Metronidazole (FLAGYL 500Mmg PREMIX) 100 ml @ 100 mls/hr Q12HR IV Last administered on 08/08/16 08:18; Start 08/05/16 at 22:00; Stop 08/08/16 at 15:27 ; Status DC Active Scripts Active Reported Hydrocodone-Apap 5-325 (Hydrocodone Bit/Acetaminophen) 1 Each Tablet 1 Tab PO Q4HRS PRN Vitals/I & O Vital Sign - Last 24 Hours 08/08/16 08/08/16 08/08/16 08/08/16 10:29 12:37 14:12 16:00 Temp 98.7 98.2 98.7 98.2 Pulse 62 76 59 59 Resp 19 18 B/P 117/50 121/61 100/50 100/50 Pulse Ox 95 96 O2 Delivery Nasal Cannula Nasal Cannula O2 Flow Rate 2.0 2.0 08/08/16 08/08/16 08/08/1617 18:10 19:39 19:42 22:12 Temp 99.4 99.4 Pulse 63 64 64 Resp 16 B/P 153/59 119/60 119/60 Pulse Ox 98 O2 Delivery Nasal Cannula Nasal Cannula O2 Flow Rate 2.0 2.0 08/08/16 08/09/16 08/09/16 08/09/16 22:39 00:08 02:32 03:55 Temp 99.0 98.4 99.0 98.4 Pulse 70 70 62 62 Resp 20 18 B/P 126/54 126/54 150/55 150/55 Pulse Ox 99 99 O2 Delivery Nasal Cannula Nasal Cannula O2 Flow Rate 2.0 2.0 08/09/16 08/09/16 08/09/16 06:00 07:00 08:00 Temp 98.8 98.8 Pulse 58 60 Resp 18 B/P 130/67 Pulse Ox 99 O2 Delivery Nasal Cannula Nasal Cannula O2 Flow Rate 2.0 2.0 Intake and Output 08/08/16 08/08/16 08/09/16 15:00 23:00 07:00 Intake Total 120 ml 960 ml Output Total 350 ml 800 ml Balance 120 ml -350 ml 160 ml Nutrition Consultation Dietary Evaluation: Recommendations by RD: Increase Calorie Intake Comments: -Rec. 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
[2016-08-09 11:00] VITALS: BP 142/44
[2016-08-09] MEDS: AA 2.75%/CALCIUM/LYTES/D5W 2,000 ML IV SCH ×2 (11:42→17:24)
[2016-08-09 15:00] VITALS: BP 138/57
[2016-08-09 19:23] VITALS: BP 141/56
[2016-08-09] MEDS: INSULIN DETEMIR 300 UNITS/3 ML INSULN.PEN. SQ SCH (21:16)
[2016-08-09 23:06] VITALS: BP 138/46
[2016-08-10] MEDS: METOPROLOL TARTRATE 5 MG/5 ML VIAL. IVP SCH ×4 (00:15→18:15)
[2016-08-10 03:34] VITALS: BP 124/46
[2016-08-10] MEDS: ENALAPRILAT 1.25 MG/ML VIAL. IV SCH ×4 (03:46→20:41)
[2016-08-10 07:00] VITALS: BP 117/54
[2016-08-10] MEDS: INSULIN ASPART 300 UNITS/3 ML INSULN.PEN SQ SCH ×3 (08:00→17:03)
[2016-08-10] MEDS: ASPIRIN 300 MG SUPP.RECT PR SCH (08:03)
[2016-08-10] MEDS: PANTOPRAZOLE IV PUSH 40 MG VIAL. IVP SCH ×2 (08:03→20:41)
[2016-08-10 11:00] VITALS: BP 126/52
--- NOTE | 2016-08-10 13:57 | PDOC ---
PROGRESS NOTES Chief Complaint Chief Complaint A/P s/p LEFt AKA () for Severe PVD Acute metabolic encephalopathy resolved. Dm 1 with Hyperglycemia. NSTEMI, med management now Vasomotor nephropathy, Diabetes with severe chronic atherosclerosis, multilevel. 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 More clear today, increase oral intake. SSI AC and HS for hyperglycemia Follow vascular recommendations. SNU placement, . History of Present Illness History of Present Illness more awake no vomiting sitting in chair. Vitals Vitals Vital Signs Date Time Temp Pulse Resp B/P Pulse Ox O2 Delivery O2 Flow Rate FiO2 08/10/16 11:59 58 126/52 08/10/16 11:00 98.3 16 98 Nasal Cannula 2.0 98.3 Physical Exam General: Alert, Oriented X3, No acute distress, Other Heart: Regular rate, Normal S1, Normal S2, No murmurs, Other (2/6 systolic murmur to LLS border) Lungs: Clear Abdomen: Normal bowel sounds, Soft, No tenderness Extremities: Other Skin: No breakdown, Other Labs LABS Laboratory Tests Test 08/09/16 16:38 08/09/16 21:05 08/10/16 08:00 08/10/16 11:56 Glucose (Fingerstick) 117mg/dL (70-99) 197mg/dL (70-99) 128mg/dL (70-99) 150mg/dL (70-99) Assessment and Plan Assessmemt and Plan Problems Medical Problems: (1) Altered mental status Status: Acute (2) Dehydration Status: Acute (3) NSTEMI (non-ST elevated myocardial infarction) Status: Acute Problems: Comment Review of Relevant I have reviewed the following items chris (where applicable) has been applied. Labs Laboratory Tests Test 08/08/16 16:33 08/08/16 21:02 08/09/16 08:14 08/09/16 11:40 Glucose (Fingerstick) 190mg/dL (70-99) 250mg/dL (70-99) 158mg/dL (70-99) 127mg/dL (70-99) Test 08/09/16 16:38 08/09/16 21:05 08/10/16 08:00 08/10/16 11:56 Glucose (Fingerstick) 117mg/dL (70-99) 197mg/dL (70-99) 128mg/dL (70-99) 150mg/dL (70-99) Laboratory Tests Test 08/09/16 16:38 08/09/16 21:05 08/10/16 08:00 08/10/16 11:56 Glucose (Fingerstick) 117mg/dL (70-99) 197mg/dL (70-99) 128mg/dL (70-99) 150mg/dL (70-99) Microbiology 07/28/16 Blood Culture - Final, Complete NO GROWTH AFTER 5 DAYS Medications Current Medications Naloxone HCl 0.4 mg 0.4 mg 1X ONCE IV Last administered on 07/28/16 21:30; Start 07/28/16 at 21:30; Stop 07/28/16 at 21:31; Status DC Sodium Chloride 1,000 ml @ 1,000 mls/hr 1X ONCE IV Last administered on 21:30; Start 07/28/16 at 21:30; Stop 07/28/16 at 22:29; Status DC Ceftriaxone Sodium 1 gm/ Sodium Chloride 50 ml @ 100 mls/hr Q24H IV Last administered on 07/30/16 21:39; Start 07/29/16 at 21:00; Stop 07/31/16 at 17:33; Status DC Ceftriaxone Sodium 50 ml @ 100 mls/hr 1X ONCE IV Last administered on 21:35; Start 07/28/16 at 22:00; Stop 07/28/16 at 22:29; Status DC Heparin Sodium/ Dextrose 500 ml @ 0 mls/hr CONT PRN IV SEE I/O RECORD Last administered on 07/29/16 21:46; Start 07/28/16 at 22:00; Stop 07/30/16 at 07:59; Status DC Heparin Sodium (Porcine) 2,200 unit PRN Q6HRS PRN IV FOR UFH LEVEL LESS THAN 0.2 Last administered on 07/28/16 23:14; Start 07/28/16 at 22:00; Stop 07/30/16 at 08:00; Status DC Ondansetron HCl 4 mg 4 mg PRN Q8HRS PRN IV NAUSEA/VOMITING; Start 07/28/16 at 22 :15; Stop 07/29/16 at 22:14; Status DC Sodium Chloride 1,000 ml @ 125 mls/hr Q8H IV Last administered on 07/29/16 08: 16; Start 07/28/16 at 22:01; Stop 07/29/16 at 13:04; Status DC Metronidazole (FLAGYL 500Mmg PREMIX) 100 ml @ 100 mls/hr Q12HR IV Last administered on 08/05/16 09:16; Start 07/28/16 at 22:30; Stop 08/05/16 at 13:02 ; Status DC Hydralazine HCl (Apresoline) 10 mg PRN Q4HRS PRN IVP ELEVATED BP, SEE COMMENTS ; Start 07/29/16 at 03:00 Insulin Aspart (Novolog) 0-9 UNITS TIDWMEALS SQ Last administered on 07/31/16 17:51; Start 07/29/16 at 08:00; Stop 08/01/16 at 08:36; Status DC Dextrose 12.5 gm PRN Q15MIN PRN IV SEE COMMENTS Last administered on 08/07/16 10:43; Start 07/29/16 at 03:00 Insulin Aspart (Novolog) 8 units 1X ONCE SQ Last administered on 07/29/16 08: 20; Start 07/29/16 at 08:30; Stop 07/29/16 at 08:31; Status DC Morphine Sulfate 2 mg PRN Q2HR PRN IV PAIN Last administered on 08/04/16 14:44 ; Start 07/29/16 at 09:00 Aspirin (Aspirin) 300 mg 1X ONCE MS Last administered on 07/29/16 13:17; Start 07/29/16 at 10:30; Stop 07/29/16 at 10:31; Status DC Heparin Sodium (Porcine) 1,800 unit PRN Q6HRS PRN IV FOR UFH LEVEL LESS THAN 0.2 Last administered on 07/29/16 10:35; Start 07/29/16 at 10:15; Stop 07/30/16 at 08:00; Status DC Metoprolol Tartrate (Lopressor) 5 mg Q6HRS IVP Last administered on 08/04/16 05:34; Start 07/29/16 at 13:00; Stop 08/04/16 at 14:42; Status DC Aspirin 150 mg 150 mg DAILY MS Last administered on 08/04/16 09:03; Start 07/30 at 09:00; Stop 08/04/16 at 14:42; Status DC Sodium Chloride 1,000 ml @ 60 mls/hr [id number] IV Last administered on 07/29/16 13:25; Start 07/29/16 at 13:30; Stop 07/29/16 at 13:31; Status DC Heparin Sodium (Porcine) 5000 unit/Sodium Chloride 505 ml @ 505 mls/hr 1X PERIOP ONCE IRR Last administered on 07/29/16 15:26; Start 07/29/16 at 14:00; Stop 07/29/16 at 14:59; Status DC Cefazolin Sodium/ Sodium Chloride (Ancef/Iv Sodium Chloride 0.9% 500ml Bag) 500 ml @ 500 mls/hr 1X PERIOP ONCE IRR Last administered on 07/29/16 15:26; Start 07/29/16 at 14:00; Stop 07/29/16 at 14:59; Status DC Gelatin (Gelfoam Size 12-7mm) 1 each STK-MED ONCE .ROUTE ; Start 07/29/16 at 13: 54; Stop 07/29/16 at 13:55; Status DC Cellulose 1 each STK-MED ONCE .ROUTE ; Start 07/29/16 at 13:54; Stop 07/29/16 at 13:55; Status DC Iohexol (Omnipaque 300 Mg/ml) 50 ml STK-MED ONCE .ROUTE ; Start 07/29/16 at 13:54 ; Stop 07/29/16 at 13:55; Status DC Gelatin (Gelfoam Size 100) 1 each STK-MED ONCE .ROUTE ; Start 07/29/16 at 13:54 ; Stop 07/29/16 at 13:55; Status DC Papaverine HCl 60 mg STK-MED ONCE .ROUTE ; Start 07/29/16 at 13:54; Stop 07/29/16 at 13:55; Status DC Thrombin 20,000 unit STK-MED ONCE TP ; Start 07/29/16 at 13:54; Stop 07/29/16 at 13:55; Status DC Midazolam HCl (Versed) 2 mg STK-MED ONCE .ROUTE ; Start 07/29/16 at 14:14; Stop 07/29/16 at 14:15; Status DC Fentanyl Citrate (Fentanyl 5ml Vial) 250 mcg STK-MED ONCE .ROUTE ; Start at 14:14; Stop 07/29/16 at 14:15; Status DC Rocuronium Cunningham 50 mg 50 mg STK-MED ONCE .ROUTE ; Start 07/29/16 at 14:14; Stop 07/29/16 at 14:15; Status DC Propofol (Diprivan) 20 ml @ As Directed STK-MED ONCE IV ; Start 07/29/16 at 14:14 ; Stop 07/29/16 at 14:15; Status DC Dexamethasone Sodium Phosphate (Decadron) 20 mg STK-MED ONCE .ROUTE ; Start 07/29 at 14:14; Stop 07/29/16 at 14:15; Status DC Ondansetron HCl (Zofran) 4 mg STK-MED ONCE .ROUTE ; Start 07/29/16 at 14:14; Stop 07/29/16 at 14:15; Status DC Lidocaine HCl 100 mg STK-MED ONCE .ROUTE ; Start 07/29/16 at 14:15; Stop 07/29/16 at 14:16; Status DC Succinylcholine Chloride (Anectine) 200 mg STK-MED ONCE .ROUTE ; Start 07/29/16 at 14:43; Stop 07/29/16 at 14:44; Status DC Phenylephrine HCl 1 mg STK-MED ONCE IV ; Start 07/29/16 at 15:01; Stop 07/29/16 at 15:02; Status DC Ephedrine Sulfate 50 mg 50 mg STK-MED ONCE .ROUTE ; Start 07/29/16 at 15:28; Stop 07/29/16 at 15:29; Status DC Insulin Human Regular/Sodium Chloride (Novolin R Vial/ Iv Normal Saline 150ml) 151.5 ml @ 7.29 mls/hr 1X ONCE IV ; Start 07/29/16 at 16:45; Stop 07/30/16 at 12 :52; Status DC Info (Anti-Coagulation Monitoring By Pharmacy) 1 each PRN DAILY PRN MC SEE COMMENTS Last administered on 07/29/16t 17:00; Start 07/29/16 at 17:00; Stop at 12:51; Status DC Heparin Sodium (Porcine) 10,000 unit STK-MED ONCE .ROUTE ; Start 07/29/16 at 17: 02; Stop 07/29/16 at 17:03; Status DC Neostigmine Methylsulfate 5 mg STK-MED ONCE .ROUTE ; Start 07/29/16 at 20:52; Stop 07/29/16 at 20:53; Status DC Glycopyrrolate (Robinul) 1 mg STK-MED ONCE .ROUTE ; Start 07/29/16 at 20:52; Stop 07/29/16 at 20:53; Status DC Fentanyl Citrate (Fentanyl 2ml Vial) 50 mcg PRN Q5MIN PRN IV Acute Pain; Start 07/29/16 at 21:15; Stop 07/30/16 at 21:14; Status DC Morphine Sulfate 4 mg PRN Q10MIN PRN IV Moderate Pain; Start 07/29/16 at 21:15; Stop 07/30/16 at 21:14; Status DC Hydromorphone HCl (Dilaudid) 0.4 mg PRN Q10MIN PRN IV Moderate to severe pain; Start 07/29/16 at 21:15; Stop 07/30/16 at 21:14; Status DC Meperidine HCl (Demerol) 12.5 mg PRN Q5MIN PRN IV SHIVERING; Start 07/29/16 at 21:15; Stop 07/30/16 at 00:00; Status DC Prochlorperazine Edisylate (Compazine) 5 mg PRN Q6HRS PRN IV Nausea/Vomiting, 1st Choice; Start 07/29/16 at 21:15; Stop 07/30/16 at 21:14; Status DC Diphenhydramine HCl 12.5 mg 12.5 mg PRN Q2HR PRN IV ITCHING; Start 07/29/16 at 21:15; Stop 07/30/16 at 21:14; Status DC Sodium Chloride (Iv Sodium Chloride 0.45%) 1,000 ml @ 100 mls/hr Q10H IV Last administered on 07/29/16t 21:59; Start 07/29/16 at 22:00; Stop 07/30/16 at 09:41; Status DC Cefazolin Sodium/ Dextrose (Ancef 2gm Premix) 2 gm STK-MED ONCE IV ; Start at 17:35; Stop 07/30/16 at 08:53; Status DC Pantoprazole Sodium 40 mg 40 mg [id number] IVP Last administered on 08/01/16 17:18 ; Start 07/30/16 at 18:00; Stop 08/01/16 at 20:26; Status DC Sodium Chloride 1,000 ml @ 60 mls/hr [id number] IV Last administered on 07/30/16 09:47; Start 07/30/16 at 09:45; Stop 07/30/16 at 12:47; Status DC Cefazolin Sodium/ Sodium Chloride (Ancef/Iv Sodium Chloride 0.9% 500ml Bag) 500 ml @ 500 mls/hr 1X PERIOP ONCE IRR Last administered on 07/31/16 13:47; Start 07/31/16 at 06:00; Stop 07/31/16 at 06:59; Status DC Insulin Detemir (Levemir) 15 units [id number] SQ Last administered on 07/30/16 12: 57; Start 07/30/16 at 13:00; Stop 08/01/16 at 08:36; Status DC Insulin Aspart 12 units 12 units 1X ONCE SQ ; Start 07/30/16 at 12:45; Stop 07/30 at 12:47; Status DC Amino Acids/ Electrolytes/ Dextrose (Clinimix E 4.25%-5% Solution) 1,000 ml @ 80 mls/hr [id number] IV Last administered on 08/02/16 17:50; Start 07/30/16 at 13: 00; Stop 08/03/16 at 03:41; Status DC Ondansetron HCl (Zofran) 4 mg PRN Q6HRS PRN IV Nausea; Start 07/31/16 at 07:00; Stop 08/01/16 at 06:59; Status DC Fentanyl Citrate (Fentanyl 2ml Vial) 25 mcg PRN Q5MIN PRN IV MILD PAIN; Start 07/31/16 at 07:00; Stop 08/01/16 at 06:59; Status DC Fentanyl Citrate (Fentanyl 2ml Vial) 50 mcg PRN Q5MIN PRN IV MODERATE PAIN; Start 07/31/16 at 07:00; Stop 08/01/16 at 06:59; Status DC Morphine Sulfate 1 mg 1 mg PRN Q10MIN PRN IV SEVERE PAIN; Start 07/31/16 at 07: 00; Stop 08/01/16 at 06:59; Status DC Lactated Ringer's (Iv Lactated Ringers) 1,000 ml @ 30 mls/hr Q24H IV Last administered on 07/31/16 15:53; Start 07/31/16 at 07:00; Stop 07/31/16 at 18:59; Status DC Lidocaine HCl 2 ml 1X PRN PRN ID IV START; Start 07/31/16 at 07:00; Stop at 06:59; Status DC Hydromorphone HCl (Dilaudid) 0.5 mg PRN Q10MIN PRN IV SEVERE PAIN, Second choice; Start 07/31/16 at 07:00; Stop 08/01/16 at 06:59; Status DC Prochlorperazine Edisylate (Compazine) 5 mg PACU PRN PRN IV NAUSEA; Start at 07:00; Stop 08/01/16 at 06:59; Status DC Insulin Detemir (Levemir) 10 units QHS SQ Last administered on 07/31/16 21:49; Start 07/31/16 at 21:00; Stop 08/01/16 at 08:36; Status DC Enalaprilat (Vasotec) 1.25 mg Q6HRS IV ; Start 07/31/16 at 12:00; Stop 07/31/16 at 12:00; Status DC Enalaprilat (Vasotec) 0.625 mg Q6HRS IV Last administered on 08/04/16 05:35; Start 07/31/16 at 12:00; Stop 08/04/16 at 14:42; Status DC Fentanyl Citrate (Fentanyl 2ml Vial) 100 mcg STK-MED ONCE .ROUTE ; Start at 12:49; Stop 07/31/16 at 12:50; Status DC Rocuronium Cunningham (Zemuron) 50 mg STK-MED ONCE .ROUTE ; Start 07/31/16 at 12:49 ; Stop 07/31/16 at 12:50; Status DC Lidocaine HCl 100 mg 100 mg STK-MED ONCE .ROUTE ; Start 07/31/16 at 13:17; Stop 07/31/16 at 13:18; Status DC Propofol (Diprivan) 20 ml @ As Directed STK-MED ONCE IV ; Start 07/31/16 at 13:17 ; Stop 07/31/16 at 13:18; Status DC Succinylcholine Chloride (Anectine) 200 mg STK-MED ONCE .ROUTE ; Start 07/31/16 at 13:30; Stop 07/31/16 at 13:31; Status DC Dexamethasone Sodium Phosphate (Decadron) 20 mg STK-MED ONCE .ROUTE ; Start 07/31 at 13:42; Stop 07/31/16 at 13:43; Status DC Ondansetron HCl (Zofran) 4 mg STK-MED ONCE .ROUTE ; Start 07/31/16 at 13:42; Stop 07/31/16 at 13:43; Status DC Phenylephrine HCl 1 mg STK-MED ONCE IV ; Start 07/31/16 at 13:47; Stop 07/31/16 at 13:48; Status DC Fentanyl Citrate (Fentanyl 2ml Vial) 100 mcg STK-MED ONCE .ROUTE ; Start at 14:26; Stop 07/31/16 at 14:27; Status DC Sevoflurane (Ultane) 60 ml STK-MED ONCE IH ; Start 07/31/16 at 15:13; Stop at 15:14; Status DC Insulin Aspart (Novolog Vial) 3 unit 1X ONCE SQ ; Start 07/31/16 at 15:45; Stop 07/31/16 at 15:45; Status DC Insulin Aspart (Novolog) 3 units 1X ONCE SQ ; Start 07/31/16 at 15:45; Stop 07/31 at 15:46; Status Cancel Insulin Aspart (Novolog Vial) 100 unit STK-MED ONCE SQ ; Start 07/31/16 at 15:41 ; Stop 07/31/16 at 15:42; Status DC Insulin Aspart (Novolog Vial) 3 unit 1X ONCE SQ ; Start 07/31/16 at 16:00; Stop 07/31/16 at 16:01; Status Cancel Insulin Aspart 3 unit 3 unit 1X ONCE SQ Last administered on 07/31/16t 15:57; Start 07/31/16 at 16:00; Stop 07/31/16 at 16:01; Status DC Ceftriaxone Sodium/Sodium Chloride (Rocephin/Iv Sodium Chloride 0.9% 50ml) 50 ml @ 100 mls/hr Q24H IV Last administered on 08/08/16 14:46; Start 08/01/16 at 14:00; Stop 08/08/16 at 15:27; Status DC Insulin Aspart (Novolog) 0-9 UNITS Q6HRS SQ Last administered on 08/03/16 18: 14; Start 08/01/16 at 12:00; Stop 08/04/16 at 12:15; Status DC Insulin Detemir (Levemir) 30 units QHS SQ Last administered on 08/09/16 21:16 ; Start 08/01/16 at 21:00 Pantoprazole Sodium 40 mg 40 mg BID IVP Last administered on 08/10/16 08:03; Start 08/01/16 at 21:00 Amino Acids/ Electrolytes 1,000 ml @ 80 mls/hr [id number] IV Last administered on 08/03/16 05:09; Start 08/03/16 at 03:41; Stop 08/03/16 at 17:24; Status DC Amino Acids/ Electrolytes (Clinimix E 2.75%-5% Solution) 2,000 ml @ 80 mls/hr Q24H IV Last administered on 08/09/16 11:42; Start 08/03/16 at 17:24 Insulin Aspart (Novolog) 0-9 UNITS TIDWMEALS SQ Last administered on 08/09/16 08:21; Start 08/04/16 at 12:11 Aspirin (Ecotrin) 81 mg [id number] PO Last administered on 08/05/16 09:14; Start 08/05/16 at 08:00; Stop 08/05/16 at 13:50; Status DC Carvedilol (Coreg) 6.25 mg BIDWMEALS PO Last administered on 08/05/16 09:15; Start 08/04/16 at 17:00; Stop 08/05/16 at 13:50; Status DC Lisinopril (Prinivil) 5 mg HS PO Last administered on 08/04/16 21:06; Start at 21:00; Stop 08/05/16 at 13:50; Status DC Cefpodoxime Proxetil (Vantin) 200 mg BID PO ; Start 08/05/16 at 14:00; Stop at 14:08; Status DC Metronidazole (Flagyl) 500 mg BID PO ; Start 08/05/16 at 21:00; Status Cancel Furosemide (Lasix) 20 mg 1X ONCE IVP Last administered on 08/05/16 13:54; Start 08/05/16 at 13:15; Stop 08/05/16 at 13:16; Status DC Aspirin (Aspirin) 300 mg DAILY MS Last administered on 08/10/16 08:03; Start 08/06/16 at 09:00 Metoprolol Tartrate (Lopressor) 5 mg Q6HRS IVP Last administered on 08/10/16 11:59; Start 08/05/16 at 18:00 Enalaprilat (Vasotec) 0.625 mg Q6H IV Last administered on 08/10/16 08:02; Start 08/05/16 at 16:00 Ondansetron HCl 4 mg 4 mg PRN Q6HRS PRN IV NAUSEA/VOMITING Last administered on 08/06/16 10:16; Start 08/05/16 at 17:15 Metronidazole (FLAGYL 500Mmg PREMIX) 100 ml @ 100 mls/hr Q12HR IV Last administered on 08/08/16 08:18; Start 08/05/16 at 22:00; Stop 08/08/16 at 15:27 ; Status DC Active Scripts Active Reported Hydrocodone-Apap 5-325 (Hydrocodone Bit/Acetaminophen) 1 Each Tablet 1 Tab PO Q4HRS PRN Vitals/I & O Vital Sign - Last 24 Hours 08/09/16 08/09/16 08/09/16 08/09/16 15:00 16:42 17:10 19:23 Temp 98.0 98.6 98.0 98.6 Pulse 60 60 60 62 Resp 18 18 B/P 138/57 138/57 138/57 141/56 Pulse Ox 98 98 O2 Delivery Nasal Cannula Nasal Cannula O2 Flow Rate 2.0 2.0 08/09/16 08/09/16 08/09/16 08/10/16 19:27 22:25 23:06 00:15 Temp 98.9 98.9 Pulse 62 73 73 Resp 18 B/P 141/56 138/46 138/46 Pulse Ox 97 O2 Delivery Nasal Cannula Nasal Cannula O2 Flow Rate 2.0 2.0 08/10/16 08/10/16 08/10/16 08/10/16 03:34 03:46 05:58 07:00 Temp 99.3 98.4 99.3 98.4 Pulse 69 69 69 62 Resp 20 16 B/P 124/46 124/46 124/46 117/54 Pulse Ox 97 98 O2 Delivery Nasal Cannula Nasal Cannula O2 Flow Rate 2.0 2.0 08/10/16 08/10/16 08/10/16 08/10/16 08:00 08:02 11:00 11:59 Temp 98.3 98.3 Pulse 62 58 58 Resp 16 B/P 117/54 126/52 126/52 Pulse Ox 98 O2 Delivery Nasal Cannula Nasal Cannula O2 Flow Rate 2.0 2.0 Intake and Output 08/09/16 08/09/16 08/10/16 15:00 23:00 07:00 Intake Total 740 ml Output Total 950 ml Balance -210 ml Nutrition Consultation Dietary Evaluation: Recommendations by RD: Increase Calorie Intake Comments: -Rec. continue the PPN @ 80 ml/hr until pt is meeting > 50% of nutrition needs via PO intake -Continue the Magic cup protein supplement TID (290 calories/9 grams protein per serving) -Continue the boost pudding protein supplement TID (240 calories/7 grams protein per serving) -Nursing indicates dobhoff was not placed Expected Outcomes/Goals: meet 75% estimated nutrition needs Malnutrition Findings: Food and Nutrition Intake (Mod: <75% est energy req 7days Reduced Nursing Tech Strength: N/A Weight Status: Overweight Fluid Accumulation (N/A): N/A DERECK SORIANO MD Aug 10, 2016 13:57
[2016-08-10 14:57] VITALS: BP 112/43
[2016-08-10 19:27] VITALS: BP 121/57
[2016-08-10] MEDS: INSULIN DETEMIR 300 UNITS/3 ML INSULN.PEN. SQ SCH (20:46)
[2016-08-10 22:23] VITALS: BP 131/57
[2016-08-11] MEDS: METOPROLOL TARTRATE 5 MG/5 ML VIAL. IVP SCH ×2 (00:13→06:00)
[2016-08-11 03:33] VITALS: BP 112/56
[2016-08-11] MEDS: ENALAPRILAT 1.25 MG/ML VIAL. IV SCH (04:29)
[2016-08-11] MEDS: INSULIN ASPART 300 UNITS/3 ML INSULN.PEN SQ SCH ×3 (07:48→17:00)
[2016-08-11 07:52] VITALS: BP 132/50
[2016-08-11] MEDS: ASPIRIN 300 MG SUPP.RECT PR SCH (09:00)
--- NOTE | 2016-08-11 10:05 | PDOC ---
Objective: Objective: Per RN - on dysphagia diet per [employer], not eating much except w/ encouragement/ help from staff. No other GI concerns, no vomiting. PC has seen, awaiting placement. Vital Signs: Vital Signs Date Time Temp Pulse Resp B/P Pulse Ox O2 Delivery O2 Flow Rate FiO2 08/11/16 07:52 98.0 62 16 132/50 98 Nasal Cannula 2.0 98.0 Labs: Laboratory Tests Test 08/10/16 11:56 08/10/16 16:55 08/10/16 20:33 08/11/16 07:19 Glucose (Fingerstick) 150mg/dL (70-99) 196mg/dL (70-99) 240mg/dL (70-99) 68mg/dL (70-99) Imaging: Abd US 08/06/16 Impression: 1. Area of relative decreased echogenicity within the liver parenchyma, non masslike, could represent focal fatty sparing. Given appearance on prior CT, an infarct is a consideration as well. 2. Heterogeneous appearance of the spleen corresponds to the area of concern on prior CT, also could represent area of infarct. PE: GEN: NAD LUNGS: nasal cannula HEART: RRR ABD: S/ND/NT NEURO/PSYCH: awake, says "alright" when I ask how he is, otherwise doesn't speak A/P: AMS -not eating much, no DPOA -on PPI, previous imaging w/ possible hepatic infarct -- Continue same per GI. KANCHAN BALLARD Aug 11, 2016 10:05
[2016-08-11 10:25] VITALS: BP 126/50
[2016-08-11] MEDS: LISINOPRIL 20 MG TABLET PO SCH (11:15)
[2016-08-11] MEDS: PANTOPRAZOLE 40 MG TABLET. PO SCH ×2 (11:15→17:55)
--- NOTE | 2016-08-11 12:57 | PDOC ---
PROGRESS NOTES Assessment Problems Medical Problems: (1) Altered mental status Status: Acute (2) Dehydration Status: Acute (3) NSTEMI (non-ST elevated myocardial infarction) Status: Acute Metabolic encephalopathy. Plan Will follow Repeat EEG or CT scan won't be helpful. Subjective No complaints Objective Vital Signs Date Time Temp Pulse Resp B/P Pulse Ox O2 Delivery O2 Flow Rate FiO2 08/11/16 11:15 64 126/50 08/11/16 10:25 98.3 18 97 Nasal Cannula 2.0 98.3 Intake and Output 08/11/16 07:00 Intake Total 400 ml Balance 400 ml Intake Oral 400 ml # Voids 6 PHYSICAL EXAM More alert, tells me name, "June," and "[place]," PERRL. EOMI. CN: no focal findings. Muscle tone: normal. Muscle strength: moves all extremities, DTR: 1+ Plantar reflex: flexor, LLE AKA Gait: not examined in bed. Sensory exam: no abnormal findings. No cerebellar signs elicited. Review of Relevant I have reviewed the following items chris (where applicable) has been applied. Labs Laboratory Tests Test 08/09/16 16:38 08/09/16 21:05 08/10/16 08:00 08/10/16 11:56 Glucose (Fingerstick) 117mg/dL (70-99) 197mg/dL (70-99) 128mg/dL (70-99) 150mg/dL (70-99) Test 08/10/16 16:55 08/10/16 20:33 08/11/16 07:19 08/11/16 11:11 Glucose (Fingerstick) 196mg/dL (70-99) 240mg/dL (70-99) 68mg/dL (70-99) 78mg/dL (70-99) Laboratory Tests Test 08/10/16 16:55 08/10/16 20:33 08/11/16 07:19 08/11/16 11:11 Glucose (Fingerstick) 196mg/dL (70-99) 240mg/dL (70-99) 68mg/dL (70-99) 78mg/dL (70-99) Microbiology 07/28/16 Blood Culture - Final, Complete NO GROWTH AFTER 5 DAYS Medications Current Medications Naloxone HCl 0.4 mg 0.4 mg 1X ONCE IV Last administered on 07/28/16 21:30; Start 07/28/16 at 21:30; Stop 07/28/16 at 21:31; Status DC Sodium Chloride 1,000 ml @ 1,000 mls/hr 1X ONCE IV Last administered on 21:30; Start 07/28/16 at 21:30; Stop 07/28/16 at 22:29; Status DC Ceftriaxone Sodium 1 gm/ Sodium Chloride 50 ml @ 100 mls/hr Q24H IV Last administered on 07/30/16 21:39; Start 07/29/16 at 21:00; Stop 07/31/16 at 17:33; Status DC Ceftriaxone Sodium 50 ml @ 100 mls/hr 1X ONCE IV Last administered on 21:35; Start 07/28/16 at 22:00; Stop 07/28/16 at 22:29; Status DC Heparin Sodium/ Dextrose 500 ml @ 0 mls/hr CONT PRN IV SEE I/O RECORD Last administered on 07/29/16 21:46; Start 07/28/16 at 22:00; Stop 07/30/16 at 07:59; Status DC Heparin Sodium (Porcine) 2,200 unit PRN Q6HRS PRN IV FOR UFH LEVEL LESS THAN 0.2 Last administered on 07/28/16 23:14; Start 07/28/16 at 22:00; Stop 07/30/16 at 08:00; Status DC Ondansetron HCl 4 mg 4 mg PRN Q8HRS PRN IV NAUSEA/VOMITING; Start 07/28/16 at 22 :15; Stop 07/29/16 at 22:14; Status DC Sodium Chloride 1,000 ml @ 125 mls/hr Q8H IV Last administered on 07/29/16 08: 16; Start 07/28/16 at 22:01; Stop 07/29/16 at 13:04; Status DC Metronidazole (FLAGYL 500Mmg PREMIX) 100 ml @ 100 mls/hr Q12HR IV Last administered on 08/05/16 09:16; Start 07/28/16 at 22:30; Stop 08/05/16 at 13:02 ; Status DC Hydralazine HCl (Apresoline) 10 mg PRN Q4HRS PRN IVP ELEVATED BP, SEE COMMENTS ; Start 07/29/16 at 03:00 Insulin Aspart (Novolog) 0-9 UNITS TIDWMEALS SQ Last administered on 07/31/16 17:51; Start 07/29/16 at 08:00; Stop 08/01/16 at 08:36; Status DC Dextrose 12.5 gm PRN Q15MIN PRN IV SEE COMMENTS Last administered on 08/07/16 10:43; Start 07/29/16 at 03:00 Insulin Aspart (Novolog) 8 units 1X ONCE SQ Last administered on 07/29/16 08: 20; Start 07/29/16 at 08:30; Stop 07/29/16 at 08:31; Status DC Morphine Sulfate 2 mg PRN Q2HR PRN IV PAIN Last administered on 08/04/16 14:44 ; Start 07/29/16 at 09:00 Aspirin (Aspirin) 300 mg 1X ONCE [place] Last administered on 07/29/16 13:17; Start 07/29/16 at 10:30; Stop 07/29/16 at 10:31; Status DC Heparin Sodium (Porcine) 1,800 unit PRN Q6HRS PRN IV FOR UFH LEVEL LESS THAN 0.2 Last administered on 07/29/16 10:35; Start 07/29/16 at 10:15; Stop 07/30/16 at 08:00; Status DC Metoprolol Tartrate (Lopressor) 5 mg Q6HRS IVP Last administered on 08/04/16 05:34; Start 07/29/16 at 13:00; Stop 08/04/16 at 14:42; Status DC Aspirin 150 mg 150 mg DAILY [place] Last administered on 08/04/16 09:03; Start 07/30 at 09:00; Stop 08/04/16 at 14:42; Status DC Sodium Chloride 1,000 ml @ 60 mls/hr [id number] IV Last administered on 07/29/16 13:25; Start 07/29/16 at 13:30; Stop 07/29/16 at 13:31; Status DC Heparin Sodium (Porcine) 5000 unit/Sodium Chloride 505 ml @ 505 mls/hr 1X PERIOP ONCE IRR Last administered on 07/29/16 15:26; Start 07/29/16 at 14:00; Stop 07/29/16 at 14:59; Status DC Cefazolin Sodium/ Sodium Chloride (Ancef/Iv Sodium Chloride 0.9% 500ml Bag) 500 ml @ 500 mls/hr 1X PERIOP ONCE IRR Last administered on 07/29/16t 15:26; Start 07/29/16 at 14:00; Stop 07/29/16 at 14:59; Status DC Gelatin (Gelfoam Size 12-7mm) 1 each STK-MED ONCE .ROUTE ; Start 07/29/16 at 13: 54; Stop 07/29/16 at 13:55; Status DC Cellulose 1 each STK-MED ONCE .ROUTE ; Start 07/29/16 at 13:54; Stop 07/29/16 at 13:55; Status DC Iohexol (Omnipaque 300 Mg/ml) 50 ml STK-MED ONCE .ROUTE ; Start 07/29/16 at 13:54 ; Stop 07/29/16 at 13:55; Status DC Gelatin (Gelfoam Size 100) 1 each STK-MED ONCE .ROUTE ; Start 07/29/16 at 13:54 ; Stop 07/29/16 at 13:55; Status DC Papaverine HCl 60 mg STK-MED ONCE .ROUTE ; Start 07/29/16 at 13:54; Stop 07/29/16 at 13:55; Status DC Thrombin 20,000 unit STK-MED ONCE TP ; Start 07/29/16 at 13:54; Stop 07/29/16 at 13:55; Status DC Midazolam HCl (Versed) 2 mg STK-MED ONCE .ROUTE ; Start 07/29/16 at 14:14; Stop 07/29/16 at 14:15; Status DC Fentanyl Citrate (Fentanyl 5ml Vial) 250 mcg STK-MED ONCE .ROUTE ; Start at 14:14; Stop 07/29/16 at 14:15; Status DC Rocuronium Denhoff 50 mg 50 mg STK-MED ONCE .ROUTE ; Start 07/29/16 at 14:14; Stop 07/29/16 at 14:15; Status DC Propofol (Diprivan) 20 ml @ As Directed STK-MED ONCE IV ; Start 07/29/16 at 14:14 ; Stop 07/29/16 at 14:15; Status DC Dexamethasone Sodium Phosphate (Decadron) 20 mg STK-MED ONCE .ROUTE ; Start 07/29 at 14:14; Stop 07/29/16 at 14:15; Status DC Ondansetron HCl (Zofran) 4 mg STK-MED ONCE .ROUTE ; Start 07/29/16 at 14:14; Stop 07/29/16 at 14:15; Status DC Lidocaine HCl 100 mg STK-MED ONCE .ROUTE ; Start 07/29/16 at 14:15; Stop 07/29/16 at 14:16; Status DC Succinylcholine Chloride (Anectine) 200 mg STK-MED ONCE .ROUTE ; Start 07/29/16 at 14:43; Stop 07/29/16 at 14:44; Status DC Phenylephrine HCl 1 mg STK-MED ONCE IV ; Start 07/29/16 at 15:01; Stop 07/29/16 at 15:02; Status DC Ephedrine Sulfate 50 mg 50 mg STK-MED ONCE .ROUTE ; Start 07/29/16 at 15:28; Stop 07/29/16 at 15:29; Status DC Insulin Human Regular/Sodium Chloride (Novolin R Vial/ Iv Normal Saline 150ml) 151.5 ml @ 7.29 mls/hr 1X ONCE IV ; Start 07/29/16 at 16:45; Stop 07/30/16 at 12 :52; Status DC Info (Anti-Coagulation Monitoring By Pharmacy) 1 each PRN DAILY PRN MC SEE COMMENTS Last administered on 07/29/16t 17:00; Start 07/29/16 at 17:00; Stop at 12:51; Status DC Heparin Sodium (Porcine) 10,000 unit STK-MED ONCE .ROUTE ; Start 07/29/16 at 17: 02; Stop 07/29/16 at 17:03; Status DC Neostigmine Methylsulfate 5 mg STK-MED ONCE .ROUTE ; Start 07/29/16 at 20:52; Stop 07/29/16 at 20:53; Status DC Glycopyrrolate (Robinul) 1 mg STK-MED ONCE .ROUTE ; Start 07/29/16 at 20:52; Stop 07/29/16 at 20:53; Status DC Fentanyl Citrate (Fentanyl 2ml Vial) 50 mcg PRN Q5MIN PRN IV Acute Pain; Start 07/29/16 at 21:15; Stop 07/30/16 at 21:14; Status DC Morphine Sulfate 4 mg PRN Q10MIN PRN IV Moderate Pain; Start 07/29/16 at 21:15; Stop 07/30/16 at 21:14; Status DC Hydromorphone HCl (Dilaudid) 0.4 mg PRN Q10MIN PRN IV Moderate to severe pain; Start 07/29/16 at 21:15; Stop 07/30/16 at 21:14; Status DC Meperidine HCl (Demerol) 12.5 mg PRN Q5MIN PRN IV SHIVERING; Start 07/29/16 at 21:15; Stop 07/30/16 at 00:00; Status DC Prochlorperazine Edisylate (Compazine) 5 mg PRN Q6HRS PRN IV Nausea/Vomiting, 1st Choice; Start 07/29/16 at 21:15; Stop 07/30/16 at 21:14; Status DC Diphenhydramine HCl 12.5 mg 12.5 mg PRN Q2HR PRN IV ITCHING; Start 07/29/16 at 21:15; Stop 07/30/16 at 21:14; Status DC Sodium Chloride (Iv Sodium Chloride 0.45%) 1,000 ml @ 100 mls/hr Q10H IV Last administered on 07/29/16 21:59; Start 07/29/16 at 22:00; Stop 07/30/16 at 09:41; Status DC Cefazolin Sodium/ Dextrose (Ancef 2gm Premix) 2 gm STK-MED ONCE IV ; Start at 17:35; Stop 07/30/16 at 08:53; Status DC Pantoprazole Sodium 40 mg 40 mg [id number] IVP Last administered on 08/01/16 17:18 ; Start 07/30/16 at 18:00; Stop 08/01/16 at 20:26; Status DC Sodium Chloride 1,000 ml @ 60 mls/hr [id number] IV Last administered on 07/30/16 09:47; Start 07/30/16 at 09:45; Stop 07/30/16 at 12:47; Status DC Cefazolin Sodium/ Sodium Chloride (Ancef/Iv Sodium Chloride 0.9% 500ml Bag) 500 ml @ 500 mls/hr 1X PERIOP ONCE IRR Last administered on 07/31/16 13:47; Start 07/31/16 at 06:00; Stop 07/31/16 at 06:59; Status DC Insulin Detemir (Levemir) 15 units [id number] SQ Last administered on 07/30/16 12: 57; Start 07/30/16 at 13:00; Stop 08/01/16 at 08:36; Status DC Insulin Aspart 12 units 12 units 1X ONCE SQ ; Start 07/30/16 at 12:45; Stop 07/30 at 12:47; Status DC Amino Acids/ Electrolytes/ Dextrose (Clinimix E 4.25%-5% Solution) 1,000 ml @ 80 mls/hr [id number] IV Last administered on 08/02/16 17:50; Start 07/30/16 at 13: 00; Stop 08/03/16 at 03:41; Status DC Ondansetron HCl (Zofran) 4 mg PRN Q6HRS PRN IV Nausea; Start 07/31/16 at 07:00; Stop 08/01/16 at 06:59; Status DC Fentanyl Citrate (Fentanyl 2ml Vial) 25 mcg PRN Q5MIN PRN IV MILD PAIN; Start 07/31/16 at 07:00; Stop 08/01/16 at 06:59; Status DC Fentanyl Citrate (Fentanyl 2ml Vial) 50 mcg PRN Q5MIN PRN IV MODERATE PAIN; Start 07/31/16 at 07:00; Stop 08/01/16 at 06:59; Status DC Morphine Sulfate 1 mg 1 mg PRN Q10MIN PRN IV SEVERE PAIN; Start 07/31/16 at 07: 00; Stop 08/01/16 at 06:59; Status DC Lactated Ringer's (Iv Lactated Ringers) 1,000 ml @ 30 mls/hr Q24H IV Last administered on 07/31/16 15:53; Start 07/31/16 at 07:00; Stop 07/31/16 at 18:59; Status DC Lidocaine HCl 2 ml 1X PRN PRN ID IV START; Start 07/31/16 at 07:00; Stop at 06:59; Status DC Hydromorphone HCl (Dilaudid) 0.5 mg PRN Q10MIN PRN IV SEVERE PAIN, Second choice; Start 07/31/16 at 07:00; Stop 08/01/16 at 06:59; Status DC Prochlorperazine Edisylate (Compazine) 5 mg PACU PRN PRN IV NAUSEA; Start at 07:00; Stop 08/01/16 at 06:59; Status DC Insulin Detemir (Levemir) 10 units QHS SQ Last administered on 07/31/16 21:49; Start 07/31/16 at 21:00; Stop 08/01/16 at 08:36; Status DC Enalaprilat (Vasotec) 1.25 mg Q6HRS IV ; Start 07/31/16 at 12:00; Stop 07/31/16 at 12:00; Status DC Enalaprilat (Vasotec) 0.625 mg Q6HRS IV Last administered on 08/04/16 05:35; Start 07/31/16 at 12:00; Stop 08/04/16 at 14:42; Status DC Fentanyl Citrate (Fentanyl 2ml Vial) 100 mcg STK-MED ONCE .ROUTE ; Start at 12:49; Stop 07/31/16 at 12:50; Status DC Rocuronium Denhoff (Zemuron) 50 mg STK-MED ONCE .ROUTE ; Start 07/31/16 at 12:49 ; Stop 07/31/16 at 12:50; Status DC Lidocaine HCl 100 mg 100 mg STK-MED ONCE .ROUTE ; Start 07/31/16 at 13:17; Stop 07/31/16 at 13:18; Status DC Propofol (Diprivan) 20 ml @ As Directed STK-MED ONCE IV ; Start 07/31/16 at 13:17 ; Stop 07/31/16 at 13:18; Status DC Succinylcholine Chloride (Anectine) 200 mg STK-MED ONCE .ROUTE ; Start 07/31/16 at 13:30; Stop 07/31/16 at 13:31; Status DC Dexamethasone Sodium Phosphate (Decadron) 20 mg STK-MED ONCE .ROUTE ; Start 07/31 at 13:42; Stop 07/31/16 at 13:43; Status DC Ondansetron HCl (Zofran) 4 mg STK-MED ONCE .ROUTE ; Start 07/31/16 at 13:42; Stop 07/31/16 at 13:43; Status DC Phenylephrine HCl 1 mg STK-MED ONCE IV ; Start 07/31/16 at 13:47; Stop 07/31/16 at 13:48; Status DC Fentanyl Citrate (Fentanyl 2ml Vial) 100 mcg STK-MED ONCE .ROUTE ; Start at 14:26; Stop 07/31/16 at 14:27; Status DC Sevoflurane (Ultane) 60 ml STK-MED ONCE IH ; Start 07/31/16 at 15:13; Stop at 15:14; Status DC Insulin Aspart (Novolog Vial) 3 unit 1X ONCE SQ ; Start 07/31/16 at 15:45; Stop 07/31/16 at 15:45; Status DC Insulin Aspart (Novolog) 3 units 1X ONCE SQ ; Start 07/31/16 at 15:45; Stop 07/31 at 15:46; Status Cancel Insulin Aspart (Novolog Vial) 100 unit STK-MED ONCE SQ ; Start 07/31/16 at 15:41 ; Stop 07/31/16 at 15:42; Status DC Insulin Aspart (Novolog Vial) 3 unit 1X ONCE SQ ; Start 07/31/16 at 16:00; Stop 07/31/16 at 16:01; Status Cancel Insulin Aspart 3 unit 3 unit 1X ONCE SQ Last administered on 07/31/16 15:57; Start 07/31/16 at 16:00; Stop 07/31/16 at 16:01; Status DC Ceftriaxone Sodium/Sodium Chloride (Rocephin/Iv Sodium Chloride 0.9% 50ml) 50 ml @ 100 mls/hr Q24H IV Last administered on 08/08/16 14:46; Start 08/01/16 at 14:00; Stop 08/08/16 at 15:27; Status DC Insulin Aspart (Novolog) 0-9 UNITS Q6HRS SQ Last administered on 08/03/16 18: 14; Start 08/01/16 at 12:00; Stop 08/04/16 at 12:15; Status DC Insulin Detemir (Levemir) 30 units QHS SQ Last administered on 08/10/16 20:46 ; Start 08/01/16 at 21:00; Stop 08/11/16 at 08:40; Status DC Pantoprazole Sodium 40 mg 40 mg BID IVP Last administered on 08/10/16 20:41; Start 08/01/16 at 21:00; Stop 08/11/16 at 08:40; Status DC Amino Acids/ Electrolytes 1,000 ml @ 80 mls/hr [id number] IV Last administered on 08/03/16 05:09; Start 08/03/16 at 03:41; Stop 08/03/16 at 17:24; Status DC Amino Acids/ Electrolytes (Clinimix E 2.75%-5% Solution) 2,000 ml @ 80 mls/hr Q24H IV Last administered on 08/09/16 11:42; Start 08/03/16 at 17:24; Stop at 16:22; Status DC Insulin Aspart (Novolog) 0-9 UNITS TIDWMEALS SQ Last administered on 08/10/16 17:03; Start 08/04/16 at 12:11 Aspirin (Ecotrin) 81 mg [id number] PO Last administered on 08/05/16 09:14; Start 08/05/16 at 08:00; Stop 08/05/16 at 13:50; Status DC Carvedilol (Coreg) 6.25 mg BIDWMEALS PO Last administered on 08/05/16 09:15; Start 08/04/16 at 17:00; Stop 08/05/16 at 13:50; Status DC Lisinopril (Prinivil) 5 mg HS PO Last administered on 08/04/16 21:06; Start at 21:00; Stop 08/05/16 at 13:50; Status DC Cefpodoxime Proxetil (Vantin) 200 mg BID PO ; Start 08/05/16 at 14:00; Stop at 14:08; Status DC Metronidazole (Flagyl) 500 mg BID PO ; Start 08/05/16 at 21:00; Status Cancel Furosemide (Lasix) 20 mg 1X ONCE IVP Last administered on 08/05/16 13:54; Start 08/05/16 at 13:15; Stop 08/05/16 at 13:16; Status DC Aspirin (Aspirin) 300 mg DAILY [place] Last administered on 08/10/16 08:03; Start 08/06/16 at 09:00 Metoprolol Tartrate (Lopressor) 5 mg Q6HRS IVP Last administered on 08/11/16 00:13; Start 08/05/16 at 18:00; Stop 08/11/16 at 08:40; Status DC Enalaprilat (Vasotec) 0.625 mg Q6H IV Last administered on 08/11/16 04:29; Start 08/05/16 at 16:00; Stop 08/11/16 at 08:40; Status DC Ondansetron HCl 4 mg 4 mg PRN Q6HRS PRN IV NAUSEA/VOMITING Last administered on 08/06/16 10:16; Start 08/05/16 at 17:15 Metronidazole (FLAGYL 500Mmg PREMIX) 100 ml @ 100 mls/hr Q12HR IV Last administered on 08/08/16 08:18; Start 08/05/16 at 22:00; Stop 08/08/16 at 15:27 ; Status DC Insulin Detemir (Levemir) 10 units QHS SQ ; Start 08/11/16 at 21:00 Lisinopril (Prinivil) 20 mg DAILY PO Last administered on 08/11/16 11:15; Start 08/11/16 at 09:00 Pantoprazole Sodium (Protonix) 40 mg BIDAC PO Last administered on 08/11/16 11 :15; Start 08/11/16 at 09:00 Active Scripts Active Reported Hydrocodone-Apap 5-325 (Hydrocodone Bit/Acetaminophen) 1 Each Tablet 1 Tab PO Q4HRS PRN Vitals/I & O Vital Sign - Last 24 Hours 08/10/16 08/10/16 08/10/16 08/10/16 14:57 16:57 18:15 19:27 Temp 97.9 98.9 97.9 98.9 Pulse 59 59 79 72 Resp 18 18 B/P 112/43 112/43 156/98 121/57 Pulse Ox 98 97 O2 Delivery Nasal Cannula Nasal Cannula O2 Flow Rate 2.0 2.0 08/10/16 08/10/16 08/10/16 08/11/16 20:00 20:41 22:23 00:13 Temp 98.8 98.8 Pulse 72 77 74 Resp 16 B/P 121/57 131/57 121/46 Pulse Ox 96 O2 Delivery Nasal Cannula Nasal Cannula O2 Flow Rate 2.0 2.0 08/11/16 08/11/16 08/11/16 08/11/16 03:33 04:29 06:00 07:52 Temp 98.6 98.0 98.6 98.0 Pulse 78 78 55 62 Resp 14 16 B/P 112/56 112/56 132/50 Pulse Ox 97 98 O2 Delivery Nasal Cannula Nasal Cannula O2 Flow Rate 2.0 2.0 08/11/16 08/11/16 08/11/16 08:00 10:25 11:15 Temp 98.3 98.3 Pulse 64 64 Resp 18 B/P 126/50 126/50 Pulse Ox 97 O2 Delivery Nasal Cannula Nasal Cannula O2 Flow Rate 2.0 2.0 Intake and Output 08/10/16 08/10/16 08/11/16 15:00 23:00 07:00 Intake Total 100 ml 300 ml Balance 100 ml 300 ml SHERRY ALCANTARA MD Aug 11, 2016 12:57
--- NOTE | 2016-08-11 13:30 | PDOC ---
PROGRESS NOTES Chief Complaint Chief Complaint A/P s/p LEFt AKA () for Severe PVD Acute metabolic encephalopathy resolved. Dm 1 with Hyperglycemia. NSTEMI, med management now Vasomotor nephropathy, Diabetes with severe chronic atherosclerosis, multilevel. 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 Encephalopathy resolved. More clear today, increase oral intake. SSI AC and HS for hyperglycemia , decrease levemir to 10u qhs, ssi. Follow vascular recommendations. SNU placement, . waiting for SW to get a plan. History of Present Illness History of Present Illness more awake no vomiting sitting in chair. no communicate well, can say " doing alright" , very flat Vitals Vitals Vital Signs Date Time Temp Pulse Resp B/P Pulse Ox O2 Delivery O2 Flow Rate FiO2 08/11/16 11:15 64 126/50 08/11/16 10:25 98.3 18 97 Nasal Cannula 2.0 98.3 Physical Exam General: Alert, Oriented X3, No acute distress, Other Heart: Regular rate, Normal S1, Normal S2, No murmurs, Other (2/6 systolic murmur to LLS border) Lungs: Clear Abdomen: Normal bowel sounds, Soft, No tenderness Extremities: Other Skin: No breakdown, Other Labs LABS Laboratory Tests Test 08/10/16 16:55 08/10/16 20:33 08/11/16 07:19 08/11/16 11:11 Glucose (Fingerstick) 196mg/dL (70-99) 240mg/dL (70-99) 68mg/dL (70-99) 78mg/dL (70-99) Review of Systems Review of Systems no fever, chills, sob or chest pain Assessment and Plan Assessmemt and Plan Problems Medical Problems: (1) Altered mental status Status: Acute (2) Dehydration Status: Acute (3) NSTEMI (non-ST elevated myocardial infarction) Status: Acute Problems: Comment Review of Relevant I have reviewed the following items chris (where applicable) has been applied. Labs Laboratory Tests Test 08/09/16 16:38 08/09/16 21:05 08/10/16 08:00 08/10/16 11:56 Glucose (Fingerstick) 117mg/dL (70-99) 197mg/dL (70-99) 128mg/dL (70-99) 150mg/dL (70-99) Test 08/10/16 16:55 08/10/16 20:33 08/11/16 07:19 08/11/16 11:11 Glucose (Fingerstick) 196mg/dL (70-99) 240mg/dL (70-99) 68mg/dL (70-99) 78mg/dL (70-99) Laboratory Tests Test 08/10/16 16:55 08/10/16 20:33 08/11/16 07:19 08/11/16 11:11 Glucose (Fingerstick) 196mg/dL (70-99) 240mg/dL (70-99) 68mg/dL (70-99) 78mg/dL (70-99) Microbiology 07/28/16 Blood Culture - Final, Complete NO GROWTH AFTER 5 DAYS Medications Current Medications Naloxone HCl 0.4 mg 0.4 mg 1X ONCE IV Last administered on 07/28/16 21:30; Start 07/28/16 at 21:30; Stop 07/28/16 at 21:31; Status DC Sodium Chloride 1,000 ml @ 1,000 mls/hr 1X ONCE IV Last administered on 21:30; Start 07/28/16 at 21:30; Stop 07/28/16 at 22:29; Status DC Ceftriaxone Sodium 1 gm/ Sodium Chloride 50 ml @ 100 mls/hr Q24H IV Last administered on 07/30/16 21:39; Start 07/29/16 at 21:00; Stop 07/31/16 at 17:33; Status DC Ceftriaxone Sodium 50 ml @ 100 mls/hr 1X ONCE IV Last administered on 21:35; Start 07/28/16 at 22:00; Stop 07/28/16 at 22:29; Status DC Heparin Sodium/ Dextrose 500 ml @ 0 mls/hr CONT PRN IV SEE I/O RECORD Last administered on 07/29/16 21:46; Start 07/28/16 at 22:00; Stop 07/30/16 at 07:59; Status DC Heparin Sodium (Porcine) 2,200 unit PRN Q6HRS PRN IV FOR UFH LEVEL LESS THAN 0.2 Last administered on 07/28/16 23:14; Start 07/28/16 at 22:00; Stop 07/30/16 at 08:00; Status DC Ondansetron HCl 4 mg 4 mg PRN Q8HRS PRN IV NAUSEA/VOMITING; Start 07/28/16 at 22 :15; Stop 07/29/16 at 22:14; Status DC Sodium Chloride 1,000 ml @ 125 mls/hr Q8H IV Last administered on 07/29/16 08: 16; Start 07/28/16 at 22:01; Stop 07/29/16 at 13:04; Status DC Metronidazole (FLAGYL 500Mmg PREMIX) 100 ml @ 100 mls/hr Q12HR IV Last administered on 08/05/16 09:16; Start 07/28/16 at 22:30; Stop 08/05/16 at 13:02 ; Status DC Hydralazine HCl (Apresoline) 10 mg PRN Q4HRS PRN IVP ELEVATED BP, SEE COMMENTS ; Start 07/29/16 at 03:00 Insulin Aspart (Novolog) 0-9 UNITS TIDWMEALS SQ Last administered on 07/31/16 17:51; Start 07/29/16 at 08:00; Stop 08/01/16 at 08:36; Status DC Dextrose 12.5 gm PRN Q15MIN PRN IV SEE COMMENTS Last administered on 08/07/16 10:43; Start 07/29/16 at 03:00 Insulin Aspart (Novolog) 8 units 1X ONCE SQ Last administered on 07/29/16 08: 20; Start 07/29/16 at 08:30; Stop 07/29/16 at 08:31; Status DC Morphine Sulfate 2 mg PRN Q2HR PRN IV PAIN Last administered on 08/04/16 14:44 ; Start 07/29/16 at 09:00 Aspirin (Aspirin) 300 mg 1X ONCE OH Last administered on 07/29/16 13:17; Start 07/29/16 at 10:30; Stop 07/29/16 at 10:31; Status DC Heparin Sodium (Porcine) 1,800 unit PRN Q6HRS PRN IV FOR UFH LEVEL LESS THAN 0.2 Last administered on 07/29/16 10:35; Start 07/29/16 at 10:15; Stop 07/30/16 at 08:00; Status DC Metoprolol Tartrate (Lopressor) 5 mg Q6HRS IVP Last administered on 08/04/16 05:34; Start 07/29/16 at 13:00; Stop 08/04/16 at 14:42; Status DC Aspirin 150 mg 150 mg DAILY OH Last administered on 08/04/16 09:03; Start 07/30 at 09:00; Stop 08/04/16 at 14:42; Status DC Sodium Chloride 1,000 ml @ 60 mls/hr [id number] IV Last administered on 07/29/16 13:25; Start 07/29/16 at 13:30; Stop 07/29/16 at 13:31; Status DC Heparin Sodium (Porcine) 5000 unit/Sodium Chloride 505 ml @ 505 mls/hr 1X PERIOP ONCE IRR Last administered on 07/29/16 15:26; Start 07/29/16 at 14:00; Stop 07/29/16 at 14:59; Status DC Cefazolin Sodium/ Sodium Chloride (Ancef/Iv Sodium Chloride 0.9% 500ml Bag) 500 ml @ 500 mls/hr 1X PERIOP ONCE IRR Last administered on 07/29/16 15:26; Start 07/29/16 at 14:00; Stop 07/29/16 at 14:59; Status DC Gelatin (Gelfoam Size 12-7mm) 1 each STK-MED ONCE .ROUTE ; Start 07/29/16 at 13: 54; Stop 07/29/16 at 13:55; Status DC Cellulose 1 each STK-MED ONCE .ROUTE ; Start 07/29/16 at 13:54; Stop 07/29/16 at 13:55; Status DC Iohexol (Omnipaque 300 Mg/ml) 50 ml STK-MED ONCE .ROUTE ; Start 07/29/16 at 13:54 ; Stop 07/29/16 at 13:55; Status DC Gelatin (Gelfoam Size 100) 1 each STK-MED ONCE .ROUTE ; Start 07/29/16 at 13:54 ; Stop 07/29/16 at 13:55; Status DC Papaverine HCl 60 mg STK-MED ONCE .ROUTE ; Start 07/29/16 at 13:54; Stop 07/29/16 at 13:55; Status DC Thrombin 20,000 unit STK-MED ONCE TP ; Start 07/29/16 at 13:54; Stop 07/29/16 at 13:55; Status DC Midazolam HCl (Versed) 2 mg STK-MED ONCE .ROUTE ; Start 07/29/16 at 14:14; Stop 07/29/16 at 14:15; Status DC Fentanyl Citrate (Fentanyl 5ml Vial) 250 mcg STK-MED ONCE .ROUTE ; Start at 14:14; Stop 07/29/16 at 14:15; Status DC Rocuronium Gladwin 50 mg 50 mg STK-MED ONCE .ROUTE ; Start 07/29/16 at 14:14; Stop 07/29/16 at 14:15; Status DC Propofol (Diprivan) 20 ml @ As Directed STK-MED ONCE IV ; Start 07/29/16 at 14:14 ; Stop 07/29/16 at 14:15; Status DC Dexamethasone Sodium Phosphate (Decadron) 20 mg STK-MED ONCE .ROUTE ; Start 07/29 at 14:14; Stop 07/29/16 at 14:15; Status DC Ondansetron HCl (Zofran) 4 mg STK-MED ONCE .ROUTE ; Start 07/29/16 at 14:14; Stop 07/29/16 at 14:15; Status DC Lidocaine HCl 100 mg STK-MED ONCE .ROUTE ; Start 07/29/16 at 14:15; Stop 07/29/16 at 14:16; Status DC Succinylcholine Chloride (Anectine) 200 mg STK-MED ONCE .ROUTE ; Start 07/29/16 at 14:43; Stop 07/29/16 at 14:44; Status DC Phenylephrine HCl 1 mg STK-MED ONCE IV ; Start 07/29/16 at 15:01; Stop 07/29/16 at 15:02; Status DC Ephedrine Sulfate 50 mg 50 mg STK-MED ONCE .ROUTE ; Start 07/29/16 at 15:28; Stop 07/29/16 at 15:29; Status DC Insulin Human Regular/Sodium Chloride (Novolin R Vial/ Iv Normal Saline 150ml) 151.5 ml @ 7.29 mls/hr 1X ONCE IV ; Start 07/29/16 at 16:45; Stop 07/30/16 at 12 :52; Status DC Info (Anti-Coagulation Monitoring By Pharmacy) 1 each PRN DAILY PRN MC SEE COMMENTS Last administered on 07/29/16 17:00; Start 07/29/16 at 17:00; Stop at 12:51; Status DC Heparin Sodium (Porcine) 10,000 unit STK-MED ONCE .ROUTE ; Start 07/29/16 at 17: 02; Stop 07/29/16 at 17:03; Status DC Neostigmine Methylsulfate 5 mg STK-MED ONCE .ROUTE ; Start 07/29/16 at 20:52; Stop 07/29/16 at 20:53; Status DC Glycopyrrolate (Robinul) 1 mg STK-MED ONCE .ROUTE ; Start 07/29/16 at 20:52; Stop 07/29/16 at 20:53; Status DC Fentanyl Citrate (Fentanyl 2ml Vial) 50 mcg PRN Q5MIN PRN IV Acute Pain; Start 07/29/16 at 21:15; Stop 07/30/16 at 21:14; Status DC Morphine Sulfate 4 mg PRN Q10MIN PRN IV Moderate Pain; Start 07/29/16 at 21:15; Stop 07/30/16 at 21:14; Status DC Hydromorphone HCl (Dilaudid) 0.4 mg PRN Q10MIN PRN IV Moderate to severe pain; Start 07/29/16 at 21:15; Stop 07/30/16 at 21:14; Status DC Meperidine HCl (Demerol) 12.5 mg PRN Q5MIN PRN IV SHIVERING; Start 07/29/16 at 21:15; Stop 07/30/16 at 00:00; Status DC Prochlorperazine Edisylate (Compazine) 5 mg PRN Q6HRS PRN IV Nausea/Vomiting, 1st Choice; Start 07/29/16 at 21:15; Stop 07/30/16 at 21:14; Status DC Diphenhydramine HCl 12.5 mg 12.5 mg PRN Q2HR PRN IV ITCHING; Start 07/29/16 at 21:15; Stop 07/30/16 at 21:14; Status DC Sodium Chloride (Iv Sodium Chloride 0.45%) 1,000 ml @ 100 mls/hr Q10H IV Last administered on 07/29/16 21:59; Start 07/29/16 at 22:00; Stop 07/30/16 at 09:41; Status DC Cefazolin Sodium/ Dextrose (Ancef 2gm Premix) 2 gm STK-MED ONCE IV ; Start at 17:35; Stop 07/30/16 at 08:53; Status DC Pantoprazole Sodium 40 mg 40 mg [id number] IVP Last administered on 08/01/16 17:18 ; Start 07/30/16 at 18:00; Stop 08/01/16 at 20:26; Status DC Sodium Chloride 1,000 ml @ 60 mls/hr [id number] IV Last administered on 07/30/16 09:47; Start 07/30/16 at 09:45; Stop 07/30/16 at 12:47; Status DC Cefazolin Sodium/ Sodium Chloride (Ancef/Iv Sodium Chloride 0.9% 500ml Bag) 500 ml @ 500 mls/hr 1X PERIOP ONCE IRR Last administered on 07/31/16 13:47; Start 07/31/16 at 06:00; Stop 07/31/16 at 06:59; Status DC Insulin Detemir (Levemir) 15 units [id number] SQ Last administered on 07/30/16 12: 57; Start 07/30/16 at 13:00; Stop 08/01/16 at 08:36; Status DC Insulin Aspart 12 units 12 units 1X ONCE SQ ; Start 07/30/16 at 12:45; Stop 07/30 at 12:47; Status DC Amino Acids/ Electrolytes/ Dextrose (Clinimix E 4.25%-5% Solution) 1,000 ml @ 80 mls/hr [id number] IV Last administered on 08/02/16 17:50; Start 07/30/16 at 13: 00; Stop 08/03/16 at 03:41; Status DC Ondansetron HCl (Zofran) 4 mg PRN Q6HRS PRN IV Nausea; Start 07/31/16 at 07:00; Stop 08/01/16 at 06:59; Status DC Fentanyl Citrate (Fentanyl 2ml Vial) 25 mcg PRN Q5MIN PRN IV MILD PAIN; Start 07/31/16 at 07:00; Stop 08/01/16 at 06:59; Status DC Fentanyl Citrate (Fentanyl 2ml Vial) 50 mcg PRN Q5MIN PRN IV MODERATE PAIN; Start 07/31/16 at 07:00; Stop 08/01/16 at 06:59; Status DC Morphine Sulfate 1 mg 1 mg PRN Q10MIN PRN IV SEVERE PAIN; Start 07/31/16 at 07: 00; Stop 08/01/16 at 06:59; Status DC Lactated Ringer's (Iv Lactated Ringers) 1,000 ml @ 30 mls/hr Q24H IV Last administered on 07/31/16 15:53; Start 07/31/16 at 07:00; Stop 07/31/16 at 18:59; Status DC Lidocaine HCl 2 ml 1X PRN PRN ID IV START; Start 07/31/16 at 07:00; Stop at 06:59; Status DC Hydromorphone HCl (Dilaudid) 0.5 mg PRN Q10MIN PRN IV SEVERE PAIN, Second choice; Start 07/31/16 at 07:00; Stop 08/01/16 at 06:59; Status DC Prochlorperazine Edisylate (Compazine) 5 mg PACU PRN PRN IV NAUSEA; Start at 07:00; Stop 08/01/16 at 06:59; Status DC Insulin Detemir (Levemir) 10 units QHS SQ Last administered on 07/31/16 21:49; Start 07/31/16 at 21:00; Stop 08/01/16 at 08:36; Status DC Enalaprilat (Vasotec) 1.25 mg Q6HRS IV ; Start 07/31/16 at 12:00; Stop 07/31/16 at 12:00; Status DC Enalaprilat (Vasotec) 0.625 mg Q6HRS IV Last administered on 08/04/16 05:35; Start 07/31/16 at 12:00; Stop 08/04/16 at 14:42; Status DC Fentanyl Citrate (Fentanyl 2ml Vial) 100 mcg STK-MED ONCE .ROUTE ; Start at 12:49; Stop 07/31/16 at 12:50; Status DC Rocuronium Gladwin (Zemuron) 50 mg STK-MED ONCE .ROUTE ; Start 07/31/16 at 12:49 ; Stop 07/31/16 at 12:50; Status DC Lidocaine HCl 100 mg 100 mg STK-MED ONCE .ROUTE ; Start 07/31/16 at 13:17; Stop 07/31/16 at 13:18; Status DC Propofol (Diprivan) 20 ml @ As Directed STK-MED ONCE IV ; Start 07/31/16 at 13:17 ; Stop 07/31/16 at 13:18; Status DC Succinylcholine Chloride (Anectine) 200 mg STK-MED ONCE .ROUTE ; Start 07/31/16 at 13:30; Stop 07/31/16 at 13:31; Status DC Dexamethasone Sodium Phosphate (Decadron) 20 mg STK-MED ONCE .ROUTE ; Start 07/31 at 13:42; Stop 07/31/16 at 13:43; Status DC Ondansetron HCl (Zofran) 4 mg STK-MED ONCE .ROUTE ; Start 07/31/16 at 13:42; Stop 07/31/16 at 13:43; Status DC Phenylephrine HCl 1 mg STK-MED ONCE IV ; Start 07/31/16 at 13:47; Stop 07/31/16 at 13:48; Status DC Fentanyl Citrate (Fentanyl 2ml Vial) 100 mcg STK-MED ONCE .ROUTE ; Start at 14:26; Stop 07/31/16 at 14:27; Status DC Sevoflurane (Ultane) 60 ml STK-MED ONCE IH ; Start 07/31/16 at 15:13; Stop at 15:14; Status DC Insulin Aspart (Novolog Vial) 3 unit 1X ONCE SQ ; Start 07/31/16 at 15:45; Stop 07/31/16 at 15:45; Status DC Insulin Aspart (Novolog) 3 units 1X ONCE SQ ; Start 07/31/16 at 15:45; Stop 07/31 at 15:46; Status Cancel Insulin Aspart (Novolog Vial) 100 unit STK-MED ONCE SQ ; Start 07/31/16 at 15:41 ; Stop 07/31/16 at 15:42; Status DC Insulin Aspart (Novolog Vial) 3 unit 1X ONCE SQ ; Start 07/31/16 at 16:00; Stop 07/31/16 at 16:01; Status Cancel Insulin Aspart 3 unit 3 unit 1X ONCE SQ Last administered on 07/31/16 15:57; Start 07/31/16 at 16:00; Stop 07/31/16 at 16:01; Status DC Ceftriaxone Sodium/Sodium Chloride (Rocephin/Iv Sodium Chloride 0.9% 50ml) 50 ml @ 100 mls/hr Q24H IV Last administered on 08/08/16 14:46; Start 08/01/16 at 14:00; Stop 08/08/16 at 15:27; Status DC Insulin Aspart (Novolog) 0-9 UNITS Q6HRS SQ Last administered on 08/03/16 18: 14; Start 08/01/16 at 12:00; Stop 08/04/16 at 12:15; Status DC Insulin Detemir (Levemir) 30 units QHS SQ Last administered on 08/10/16 20:46 ; Start 08/01/16 at 21:00; Stop 08/11/16 at 08:40; Status DC Pantoprazole Sodium 40 mg 40 mg BID IVP Last administered on 08/10/16 20:41; Start 08/01/16 at 21:00; Stop 08/11/16 at 08:40; Status DC Amino Acids/ Electrolytes 1,000 ml @ 80 mls/hr [id number] IV Last administered on 08/03/16 05:09; Start 08/03/16 at 03:41; Stop 08/03/16 at 17:24; Status DC Amino Acids/ Electrolytes (Clinimix E 2.75%-5% Solution) 2,000 ml @ 80 mls/hr Q24H IV Last administered on 08/09/16 11:42; Start 08/03/16 at 17:24; Stop at 16:22; Status DC Insulin Aspart (Novolog) 0-9 UNITS TIDWMEALS SQ Last administered on 08/10/16 17:03; Start 08/04/16 at 12:11 Aspirin (Ecotrin) 81 mg [id number] PO Last administered on 08/05/16 09:14; Start 08/05/16 at 08:00; Stop 08/05/16 at 13:50; Status DC Carvedilol (Coreg) 6.25 mg BIDWMEALS PO Last administered on 08/05/16 09:15; Start 08/04/16 at 17:00; Stop 08/05/16 at 13:50; Status DC Lisinopril (Prinivil) 5 mg HS PO Last administered on 08/04/16 21:06; Start at 21:00; Stop 08/05/16 at 13:50; Status DC Cefpodoxime Proxetil (Vantin) 200 mg BID PO ; Start 08/05/16 at 14:00; Stop at 14:08; Status DC Metronidazole (Flagyl) 500 mg BID PO ; Start 08/05/16 at 21:00; Status Cancel Furosemide (Lasix) 20 mg 1X ONCE IVP Last administered on 08/05/16 13:54; Start 08/05/16 at 13:15; Stop 08/05/16 at 13:16; Status DC Aspirin (Aspirin) 300 mg DAILY OH Last administered on 08/10/16 08:03; Start 08/06/16 at 09:00 Metoprolol Tartrate (Lopressor) 5 mg Q6HRS IVP Last administered on 08/11/16 00:13; Start 08/05/16 at 18:00; Stop 08/11/16 at 08:40; Status DC Enalaprilat (Vasotec) 0.625 mg Q6H IV Last administered on 08/11/16 04:29; Start 08/05/16 at 16:00; Stop 08/11/16 at 08:40; Status DC Ondansetron HCl 4 mg 4 mg PRN Q6HRS PRN IV NAUSEA/VOMITING Last administered on 08/06/16 10:16; Start 08/05/16 at 17:15 Metronidazole (FLAGYL 500Mmg PREMIX) 100 ml @ 100 mls/hr Q12HR IV Last administered on 08/08/16 08:18; Start 08/05/16 at 22:00; Stop 08/08/16 at 15:27 ; Status DC Insulin Detemir (Levemir) 10 units QHS SQ ; Start 08/11/16 at 21:00 Lisinopril (Prinivil) 20 mg DAILY PO Last administered on 08/11/16 11:15; Start 08/11/16 at 09:00 Pantoprazole Sodium (Protonix) 40 mg BIDAC PO Last administered on 08/11/16t 11 :15; Start 08/11/16 at 09:00 Active Scripts Active Reported Hydrocodone-Apap 5-325 (Hydrocodone Bit/Acetaminophen) 1 Each Tablet 1 Tab PO Q4HRS PRN Vitals/I & O Vital Sign - Last 24 Hours 08/10/16 08/10/16 08/10/16 08/10/16 14:57 16:57 18:15 19:27 Temp 97.9 98.9 97.9 98.9 Pulse 59 59 79 72 Resp 18 18 B/P 112/43 112/43 156/98 121/57 Pulse Ox 98 97 O2 Delivery Nasal Cannula Nasal Cannula O2 Flow Rate 2.0 2.0 08/10/16 08/10/16 08/10/16 08/11/16 20:00 20:41 22:23 00:13 Temp 98.8 98.8 Pulse 72 77 74 Resp 16 B/P 121/57 131/57 121/46 Pulse Ox 96 O2 Delivery Nasal Cannula Nasal Cannula O2 Flow Rate 2.0 2.0 08/11/16 08/11/16 08/11/16 08/11/16 03:33 04:29 06:00 07:52 Temp 98.6 98.0 98.6 98.0 Pulse 78 78 55 62 Resp 16 B/P 112/56 112/56 132/50 Pulse Ox 97 98 O2 Delivery Nasal Cannula Nasal Cannula O2 Flow Rate 2.0 2.0 08/11/16 08/11/16 08/11/16 08:00 10:25 11:15 Temp 98.3 98.3 Pulse 64 64 Resp 18 B/P 126/50 126/50 Pulse Ox 97 O2 Delivery Nasal Cannula Nasal Cannula O2 Flow Rate 2.0 2.0 Intake and Output 08/10/16 08/10/16 08/11/16 15:00 23:00 07:00 Intake Total 100 ml 300 ml Balance 100 ml 300 ml Nutrition Consultation Dietary Evaluation: Recommendations by RD: Increase Calorie Intake Comments: -Rec. 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
[2016-08-11 15:18] VITALS: BP 135/54
--- NOTE | 2016-08-11 16:47 | PDOC ---
PROGRESS NOTES Subjective Subjective c/c - f/u of Leukocytosis Objective Objective Vital Signs Date Time Temp Pulse Resp B/P Pulse Ox O2 Delivery O2 Flow Rate FiO2 08/11/16 15:18 98.2 60 16 135/54 95 Room Air 98.2 08/11/16 10:25 2.0 Intake and Output 08/11/16 07:00 Intake Total 400 ml Balance 400 ml Intake Oral 400 ml # Voids 6 Physical Exam Heart: Normal S1, Normal S2 General: Alert Lungs: Clear to auscultation Assessment Assessment Problems Medical Problems: (1) Altered mental status Status: Acute (2) Dehydration Status: Acute (3) NSTEMI (non-ST elevated myocardial infarction) Status: Acute ASSESSMENT AND PLAN: The patient is a 66-year-old male with the following medical problems: 1. Leukocytosis/Persistent neutrophilia since 02/2016, per review of outside [facility] records. I suspect this is due to possible bone infection or certainly reactive to his ongoing health issues, likely significant peripheral vascular disease, warranting recent left above-knee amputation. Monitor cbc. 2. Transaminitis on admission: Appreciate GI consult. 3. Encephalopathy: New this admission. Improving 5. Significant peripheral vascular disease: Status post left above-knee amputation on 07/31. Comment Review of Relevant I have reviewed the following items chris (where applicable) has been applied. Labs Laboratory Tests Test 08/09/16 21:05 08/10/16 08:00 08/10/16 11:56 08/10/16 16:55 Glucose (Fingerstick) 197mg/dL (70-99) 128mg/dL (70-99) 150mg/dL (70-99) 196mg/dL (70-99) Test 08/10/16 20:33 08/11/16 07:19 08/11/16 11:11 08/11/16 16:36 Glucose (Fingerstick) 240mg/dL (70-99) 68mg/dL (70-99) 78mg/dL (70-99) 62mg/dL (70-99) Laboratory Tests Test 08/10/16 16:55 08/10/16 20:33 08/11/16 07:19 08/11/16 11:11 Glucose (Fingerstick) 196mg/dL (70-99) 240mg/dL (70-99) 68mg/dL (70-99) 78mg/dL (70-99) Test 08/11/16 16:36 Glucose (Fingerstick) 62mg/dL (70-99) Microbiology 07/28/16 Blood Culture - Final, Complete NO GROWTH AFTER 5 DAYS Medications Current Medications Naloxone HCl 0.4 mg 0.4 mg 1X ONCE IV Last administered on 07/28/16 21:30; Start 07/28/16 at 21:30; Stop 07/28/16 at 21:31; Status DC Sodium Chloride 1,000 ml @ 1,000 mls/hr 1X ONCE IV Last administered on 21:30; Start 07/28/16 at 21:30; Stop 07/28/16 at 22:29; Status DC Ceftriaxone Sodium 1 gm/ Sodium Chloride 50 ml @ 100 mls/hr Q24H IV Last administered on 07/30/16 21:39; Start 07/29/16 at 21:00; Stop 07/31/16 at 17:33; Status DC Ceftriaxone Sodium 50 ml @ 100 mls/hr 1X ONCE IV Last administered on 21:35; Start 07/28/16 at 22:00; Stop 07/28/16 at 22:29; Status DC Heparin Sodium/ Dextrose 500 ml @ 0 mls/hr CONT PRN IV SEE I/O RECORD Last administered on 07/29/16 21:46; Start 07/28/16 at 22:00; Stop 07/30/16 at 07:59; Status DC Heparin Sodium (Porcine) 2,200 unit PRN Q6HRS PRN IV FOR UFH LEVEL LESS THAN 0.2 Last administered on 07/28/16 23:14; Start 07/28/16 at 22:00; Stop 07/30/16 at 08:00; Status DC Ondansetron HCl 4 mg 4 mg PRN Q8HRS PRN IV NAUSEA/VOMITING; Start 07/28/16 at 22 :15; Stop 07/29/16 at 22:14; Status DC Sodium Chloride 1,000 ml @ 125 mls/hr Q8H IV Last administered on 07/29/16 08: 16; Start 07/28/16 at 22:01; Stop 07/29/16 at 13:04; Status DC Metronidazole (FLAGYL 500Mmg PREMIX) 100 ml @ 100 mls/hr Q12HR IV Last administered on 08/05/16 09:16; Start 07/28/16 at 22:30; Stop 08/05/16 at 13:02 ; Status DC Hydralazine HCl (Apresoline) 10 mg PRN Q4HRS PRN IVP ELEVATED BP, SEE COMMENTS ; Start 07/29/16 at 03:00 Insulin Aspart (Novolog) 0-9 UNITS TIDWMEALS SQ Last administered on 07/31/16 17:51; Start 07/29/16 at 08:00; Stop 08/01/16 at 08:36; Status DC Dextrose 12.5 gm PRN Q15MIN PRN IV SEE COMMENTS Last administered on 08/07/16 10:43; Start 07/29/16 at 03:00 Insulin Aspart (Novolog) 8 units 1X ONCE SQ Last administered on 07/29/16 08: 20; Start 07/29/16 at 08:30; Stop 07/29/16 at 08:31; Status DC Morphine Sulfate 2 mg PRN Q2HR PRN IV PAIN Last administered on 08/04/16 14:44 ; Start 07/29/16 at 09:00 Aspirin (Aspirin) 300 mg 1X ONCE GA Last administered on 07/29/16 13:17; Start 07/29/16 at 10:30; Stop 07/29/16 at 10:31; Status DC Heparin Sodium (Porcine) 1,800 unit PRN Q6HRS PRN IV FOR UFH LEVEL LESS THAN 0.2 Last administered on 07/29/16 10:35; Start 07/29/16 at 10:15; Stop 07/30/16 at 08:00; Status DC Metoprolol Tartrate (Lopressor) 5 mg Q6HRS IVP Last administered on 08/04/16 05:34; Start 07/29/16 at 13:00; Stop 08/04/16 at 14:42; Status DC Aspirin 150 mg 150 mg DAILY GA Last administered on 08/04/16 09:03; Start 07/30 at 09:00; Stop 08/04/16 at 14:42; Status DC Sodium Chloride 1,000 ml @ 60 mls/hr [id number] IV Last administered on 07/29/16 13:25; Start 07/29/16 at 13:30; Stop 07/29/16 at 13:31; Status DC Heparin Sodium (Porcine) 5000 unit/Sodium Chloride 505 ml @ 505 mls/hr 1X PERIOP ONCE IRR Last administered on 07/29/16 15:; Start 07/29/16 at 14:00; Stop 07/29/16 at 14:59; Status DC Cefazolin Sodium/ Sodium Chloride (Ancef/Iv Sodium Chloride 0.9% 500ml Bag) 500 ml @ 500 mls/hr 1X PERIOP ONCE IRR Last administered on 07/29/16 15:; Start 07/29/16 at 14:00; Stop 07/29/16 at 14:59; Status DC Gelatin (Gelfoam Size 12-7mm) 1 each STK-MED ONCE .ROUTE ; Start 07/29/16 at 13: 54; Stop 07/29/16 at 13:55; Status DC Cellulose 1 each STK-MED ONCE .ROUTE ; Start 07/29/16 at 13:54; Stop 07/29/16 at 13:55; Status DC Iohexol (Omnipaque 300 Mg/ml) 50 ml STK-MED ONCE .ROUTE ; Start 07/29/16 at 13:54 ; Stop 07/29/16 at 13:55; Status DC Gelatin (Gelfoam Size 100) 1 each STK-MED ONCE .ROUTE ; Start 07/29/16 at 13:54 ; Stop 07/29/16 at 13:55; Status DC Papaverine HCl 60 mg STK-MED ONCE .ROUTE ; Start 07/29/16 at 13:54; Stop 07/29/16 at 13:55; Status DC Thrombin 20,000 unit STK-MED ONCE TP ; Start 07/29/16 at 13:54; Stop 07/29/16 at 13:55; Status DC Midazolam HCl (Versed) 2 mg STK-MED ONCE .ROUTE ; Start 07/29/16 at 14:14; Stop 07/29/16 at 14:15; Status DC Fentanyl Citrate (Fentanyl 5ml Vial) 250 mcg STK-MED ONCE .ROUTE ; Start at 14:14; Stop 07/29/16 at 14:15; Status DC Rocuronium Draper 50 mg 50 mg STK-MED ONCE .ROUTE ; Start 07/29/16 at 14:14; Stop 07/29/16 at 14:15; Status DC Propofol (Diprivan) 20 ml @ As Directed STK-MED ONCE IV ; Start 07/29/16 at 14:14 ; Stop 07/29/16 at 14:15; Status DC Dexamethasone Sodium Phosphate (Decadron) 20 mg STK-MED ONCE .ROUTE ; Start 07/29 at 14:14; Stop 07/29/16 at 14:15; Status DC Ondansetron HCl (Zofran) 4 mg STK-MED ONCE .ROUTE ; Start 07/29/16 at 14:14; Stop 07/29/16 at 14:15; Status DC Lidocaine HCl 100 mg STK-MED ONCE .ROUTE ; Start 07/29/16 at 14:15; Stop 07/29/16 at 14:16; Status DC Succinylcholine Chloride (Anectine) 200 mg STK-MED ONCE .ROUTE ; Start 07/29/16 at 14:43; Stop 07/29/16 at 14:44; Status DC Phenylephrine HCl 1 mg STK-MED ONCE IV ; Start 07/29/16 at 15:01; Stop 07/29/16 at 15:02; Status DC Ephedrine Sulfate 50 mg 50 mg STK-MED ONCE .ROUTE ; Start 07/29/16 at 15:28; Stop 07/29/16 at 15:29; Status DC Insulin Human Regular/Sodium Chloride (Novolin R Vial/ Iv Normal Saline 150ml) 151.5 ml @ 7.29 mls/hr 1X ONCE IV ; Start 07/29/16 at 16:45; Stop 07/30/16 at 12 :52; Status DC Info (Anti-Coagulation Monitoring By Pharmacy) 1 each PRN DAILY PRN MC SEE COMMENTS Last administered on 07/29/16t 17:00; Start 07/29/16 at 17:00; Stop at 12:51; Status DC Heparin Sodium (Porcine) 10,000 unit STK-MED ONCE .ROUTE ; Start 07/29/16 at 17: 02; Stop 07/29/16 at 17:03; Status DC Neostigmine Methylsulfate 5 mg STK-MED ONCE .ROUTE ; Start 07/29/16 at 20:52; Stop 07/29/16 at 20:53; Status DC Glycopyrrolate (Robinul) 1 mg STK-MED ONCE .ROUTE ; Start 07/29/16 at 20:52; Stop 07/29/16 at 20:53; Status DC Fentanyl Citrate (Fentanyl 2ml Vial) 50 mcg PRN Q5MIN PRN IV Acute Pain; Start 07/29/16 at 21:15; Stop 07/30/16 at 21:14; Status DC Morphine Sulfate 4 mg PRN Q10MIN PRN IV Moderate Pain; Start 07/29/16 at 21:15; Stop 07/30/16 at 21:14; Status DC Hydromorphone HCl (Dilaudid) 0.4 mg PRN Q10MIN PRN IV Moderate to severe pain; Start 07/29/16 at 21:15; Stop 07/30/16 at 21:14; Status DC Meperidine HCl (Demerol) 12.5 mg PRN Q5MIN PRN IV SHIVERING; Start 07/29/16 at 21:15; Stop 07/30/16 at 00:00; Status DC Prochlorperazine Edisylate (Compazine) 5 mg PRN Q6HRS PRN IV Nausea/Vomiting, 1st Choice; Start 07/29/16 at 21:15; Stop 07/30/16 at 21:14; Status DC Diphenhydramine HCl 12.5 mg 12.5 mg PRN Q2HR PRN IV ITCHING; Start 07/29/16 at 21:15; Stop 07/30/16 at 21:14; Status DC Sodium Chloride (Iv Sodium Chloride 0.45%) 1,000 ml @ 100 mls/hr Q10H IV Last administered on 07/29/16 21:59; Start 07/29/16 at 22:00; Stop 07/30/16 at 09:41; Status DC Cefazolin Sodium/ Dextrose (Ancef 2gm Premix) 2 gm STK-MED ONCE IV ; Start at 17:35; Stop 07/30/16 at 08:53; Status DC Pantoprazole Sodium 40 mg 40 mg [id number] IVP Last administered on 08/01/16 17:18 ; Start 07/30/16 at 18:00; Stop 08/01/16 at 20:26; Status DC Sodium Chloride 1,000 ml @ 60 mls/hr [id number] IV Last administered on 07/30/16 09:47; Start 07/30/16 at 09:45; Stop 07/30/16 at 12:47; Status DC Cefazolin Sodium/ Sodium Chloride (Ancef/Iv Sodium Chloride 0.9% 500ml Bag) 500 ml @ 500 mls/hr 1X PERIOP ONCE IRR Last administered on 07/31/16 13:47; Start 07/31/16 at 06:00; Stop 07/31/16 at 06:59; Status DC Insulin Detemir (Levemir) 15 units [id number] SQ Last administered on 07/30/16 12: 57; Start 07/30/16 at 13:00; Stop 08/01/16 at 08:36; Status DC Insulin Aspart 12 units 12 units 1X ONCE SQ ; Start 07/30/16 at 12:45; Stop 07/30 at 12:47; Status DC Amino Acids/ Electrolytes/ Dextrose (Clinimix E 4.25%-5% Solution) 1,000 ml @ 80 mls/hr [id number] IV Last administered on 08/02/16 17:50; Start 07/30/16 at 13: 00; Stop 08/03/16 at 03:41; Status DC Ondansetron HCl (Zofran) 4 mg PRN Q6HRS PRN IV Nausea; Start 07/31/16 at 07:00; Stop 08/01/16 at 06:59; Status DC Fentanyl Citrate (Fentanyl 2ml Vial) 25 mcg PRN Q5MIN PRN IV MILD PAIN; Start 07/31/16 at 07:00; Stop 08/01/16 at 06:59; Status DC Fentanyl Citrate (Fentanyl 2ml Vial) 50 mcg PRN Q5MIN PRN IV MODERATE PAIN; Start 07/31/16 at 07:00; Stop 08/01/16 at 06:59; Status DC Morphine Sulfate 1 mg 1 mg PRN Q10MIN PRN IV SEVERE PAIN; Start 07/31/16 at 07: 00; Stop 08/01/16 at 06:59; Status DC Lactated Ringer's (Iv Lactated Ringers) 1,000 ml @ 30 mls/hr Q24H IV Last administered on 07/31/16 15:53; Start 07/31/16 at 07:00; Stop 07/31/16 at 18:59; Status DC Lidocaine HCl 2 ml 1X PRN PRN ID IV START; Start 07/31/16 at 07:00; Stop at 06:59; Status DC Hydromorphone HCl (Dilaudid) 0.5 mg PRN Q10MIN PRN IV SEVERE PAIN, Second choice; Start 07/31/16 at 07:00; Stop 08/01/16 at 06:59; Status DC Prochlorperazine Edisylate (Compazine) 5 mg PACU PRN PRN IV NAUSEA; Start at 07:00; Stop 08/01/16 at 06:59; Status DC Insulin Detemir (Levemir) 10 units QHS SQ Last administered on 07/31/16 21:49; Start 07/31/16 at 21:00; Stop 08/01/16 at 08:36; Status DC Enalaprilat (Vasotec) 1.25 mg Q6HRS IV ; Start 07/31/16 at 12:00; Stop 07/31/16 at 12:00; Status DC Enalaprilat (Vasotec) 0.625 mg Q6HRS IV Last administered on 08/04/16 05:35; Start 07/31/16 at 12:00; Stop 08/04/16 at 14:42; Status DC Fentanyl Citrate (Fentanyl 2ml Vial) 100 mcg STK-MED ONCE .ROUTE ; Start at 12:49; Stop 07/31/16 at 12:50; Status DC Rocuronium Draper (Zemuron) 50 mg STK-MED ONCE .ROUTE ; Start 07/31/16 at 12:49 ; Stop 07/31/16 at 12:50; Status DC Lidocaine HCl 100 mg 100 mg STK-MED ONCE .ROUTE ; Start 07/31/16 at 13:17; Stop 07/31/16 at 13:18; Status DC Propofol (Diprivan) 20 ml @ As Directed STK-MED ONCE IV ; Start 07/31/16 at 13:17 ; Stop 07/31/16 at 13:18; Status DC Succinylcholine Chloride (Anectine) 200 mg STK-MED ONCE .ROUTE ; Start 07/31/16 at 13:30; Stop 07/31/16 at 13:31; Status DC Dexamethasone Sodium Phosphate (Decadron) 20 mg STK-MED ONCE .ROUTE ; Start 07/31 at 13:42; Stop 07/31/16 at 13:43; Status DC Ondansetron HCl (Zofran) 4 mg STK-MED ONCE .ROUTE ; Start 07/31/16 at 13:42; Stop 07/31/16 at 13:43; Status DC Phenylephrine HCl 1 mg STK-MED ONCE IV ; Start 07/31/16 at 13:47; Stop 07/31/16 at 13:48; Status DC Fentanyl Citrate (Fentanyl 2ml Vial) 100 mcg STK-MED ONCE .ROUTE ; Start at 14:26; Stop 07/31/16 at 14:27; Status DC Sevoflurane (Ultane) 60 ml STK-MED ONCE IH ; Start 07/31/16 at 15:13; Stop at 15:14; Status DC Insulin Aspart (Novolog Vial) 3 unit 1X ONCE SQ ; Start 07/31/16 at 15:45; Stop 07/31/16 at 15:45; Status DC Insulin Aspart (Novolog) 3 units 1X ONCE SQ ; Start 07/31/16 at 15:45; Stop 07/31 at 15:46; Status Cancel Insulin Aspart (Novolog Vial) 100 unit STK-MED ONCE SQ ; Start 07/31/16 at 15:41 ; Stop 07/31/16 at 15:42; Status DC Insulin Aspart (Novolog Vial) 3 unit 1X ONCE SQ ; Start 07/31/16 at 16:00; Stop 07/31/16 at 16:01; Status Cancel Insulin Aspart 3 unit 3 unit 1X ONCE SQ Last administered on 07/31/16 15:57; Start 07/31/16 at 16:00; Stop 07/31/16 at 16:01; Status DC Ceftriaxone Sodium/Sodium Chloride (Rocephin/Iv Sodium Chloride 0.9% 50ml) 50 ml @ 100 mls/hr Q24H IV Last administered on 08/08/16 14:46; Start 08/01/16 at 14:00; Stop 08/08/16 at 15:27; Status DC Insulin Aspart (Novolog) 0-9 UNITS Q6HRS SQ Last administered on 08/03/16 18: 14; Start 08/01/16 at 12:00; Stop 08/04/16 at 12:15; Status DC Insulin Detemir (Levemir) 30 units QHS SQ Last administered on 08/10/16 20:46 ; Start 08/01/16 at 21:00; Stop 08/11/16 at 08:40; Status DC Pantoprazole Sodium 40 mg 40 mg BID IVP Last administered on 08/10/16 20:41; Start 08/01/16 at 21:00; Stop 08/11/16 at 08:40; Status DC Amino Acids/ Electrolytes 1,000 ml @ 80 mls/hr [id number] IV Last administered on 08/03/16 05:09; Start 08/03/16 at 03:41; Stop 08/03/16 at 17:24; Status DC Amino Acids/ Electrolytes (Clinimix E 2.75%-5% Solution) 2,000 ml @ 80 mls/hr Q24H IV Last administered on 08/09/16 11:42; Start 08/03/16 at 17:24; Stop at 16:22; Status DC Insulin Aspart (Novolog) 0-9 UNITS TIDWMEALS SQ Last administered on 08/10/16 17:03; Start 08/04/16 at 12:11 Aspirin (Ecotrin) 81 mg [id number] PO Last administered on 08/05/16 09:14; Start 08/05/16 at 08:00; Stop 08/05/16 at 13:50; Status DC Carvedilol (Coreg) 6.25 mg BIDWMEALS PO Last administered on 08/05/16 09:15; Start 08/04/16 at 17:00; Stop 08/05/16 at 13:50; Status DC Lisinopril (Prinivil) 5 mg HS PO Last administered on 08/04/16 21:06; Start at 21:00; Stop 08/05/16 at 13:50; Status DC Cefpodoxime Proxetil (Vantin) 200 mg BID PO ; Start 08/05/16 at 14:00; Stop at 14:08; Status DC Metronidazole (Flagyl) 500 mg BID PO ; Start 08/05/16 at 21:00; Status Cancel Furosemide (Lasix) 20 mg 1X ONCE IVP Last administered on 08/05/16 13:54; Start 08/05/16 at 13:15; Stop 08/05/16 at 13:16; Status DC Aspirin (Aspirin) 300 mg DAILY GA Last administered on 08/10/16 08:03; Start 08/06/16 at 09:00 Metoprolol Tartrate (Lopressor) 5 mg Q6HRS IVP Last administered on 08/11/16 00:13; Start 08/05/16 at 18:00; Stop 08/11/16 at 08:40; Status DC Enalaprilat (Vasotec) 0.625 mg Q6H IV Last administered on 08/11/16 04:29; Start 08/05/16 at 16:00; Stop 08/11/16 at 08:40; Status DC Ondansetron HCl 4 mg 4 mg PRN Q6HRS PRN IV NAUSEA/VOMITING Last administered on 08/06/16 10:16; Start 08/05/16 at 17:15 Metronidazole (FLAGYL 500Mmg PREMIX) 100 ml @ 100 mls/hr Q12HR IV Last administered on 08/08/16 08:18; Start 08/05/16 at 22:00; Stop 08/08/16 at 15:27 ; Status DC Insulin Detemir (Levemir) 10 units QHS SQ ; Start 08/11/16 at 21:00 Lisinopril (Prinivil) 20 mg DAILY PO Last administered on 08/11/16 11:15; Start 08/11/16 at 09:00 Pantoprazole Sodium (Protonix) 40 mg BIDAC PO Last administered on 08/11/16 11 :15; Start 08/11/16 at 09:00 Active Scripts Active Reported Hydrocodone-Apap 5-325 (Hydrocodone Bit/Acetaminophen) 1 Each Tablet 1 Tab PO Q4HRS PRN Vitals/I & O Vital Sign - Last 24 Hours 08/10/16 08/10/16 08/10/16 08/10/16 16:57 18:15 19:27 20:00 Temp 98.9 98.9 Pulse 59 79 72 Resp 18 B/P 112/43 156/98 121/57 Pulse Ox 97 O2 Delivery Nasal Cannula Nasal Cannula O2 Flow Rate 2.0 2.0 08/10/16 08/10/16 08/11/16 08/11/16 20:41 22:23 00:13 03:33 Temp 98.8 98.6 98.8 98.6 Pulse 72 77 74 78 Resp 16 14 B/P 121/57 131/57 121/46 112/56 Pulse Ox 96 97 O2 Delivery Nasal Cannula Nasal Cannula O2 Flow Rate 2.0 2.0 08/11/16 08/11/16 08/11/16 08/11/16 04:29 06:00 07:52 08:00 Temp 98.0 98.0 Pulse 78 55 62 Resp 16 B/P 112/56 132/50 Pulse Ox 98 O2 Delivery Nasal Cannula Nasal Cannula O2 Flow Rate 2.0 2.0 08/11/16 08/11/16 08/11/16 10:25 11:15 15:18 Temp 98.3 98.2 98.3 98.2 Pulse 64 64 60 Resp 18 16 B/P 126/50 126/50 135/54 Pulse Ox 97 95 O2 Delivery Nasal Cannula Room Air O2 Flow Rate 2.0 Intake and Output 08/10/16 08/10/16 08/11/16 15:00 23:00 07:00 Intake Total 100 ml 300 ml Balance 100 ml 300 ml Nutrition Consultation Dietary Evaluation: Recommendations by RD: Increase Calorie Intake Comments: -Rec. continue the PPN @ 80 ml/hr until pt is meeting > 50% of nutrition needs via PO intake -Continue the Magic cup protein supplement TID (290 calories/9 grams protein per serving) -Continue the boost pudding protein supplement TID (240 calories/7 grams protein per serving) -Nursing indicates dobhoff was not placed Expected Outcomes/Goals: meet 75% estimated nutrition needs Malnutrition Findings: Food and Nutrition Intake (Mod: <75% est energy req 7days Reduced [employer] Strength: N/A Weight Status: Overweight Fluid Accumulation (N/A): N/A BRIGIDA SANTACRUZ MD Aug 11, 2016 16:47
--- NOTE | 2016-08-11 16:50 | PDOC2 ---
PALLIATIVE CARE Palliative Care Note Palliative Care Patient sitting up in chair. Slow to respond to questions. BS 62. Spoke with Frannie, neighbor. Visited this weekend. Per Frannie patient did not act like he wanted to talk. No numbers on patient's cell phone for contacts. Will attempt again if patient is more alert. ILIANA JAVIER Aug 11, 2016 16:50
[2016-08-11] MEDS: MORPHINE SULFATE 2 MG/ML DISP.SYRIN. IV PRN (17:57)
[2016-08-11] MEDS: DEXTROSE 50% 25 GM / 50ML DISP.SYRIN. IV PRN (18:03)
[2016-08-11 19:46] VITALS: BP 135/56
[2016-08-11] MEDS ORDERED: INSULIN DETEMIR 300 UNITS/3 ML INSULN.PEN. SQ SCH (21:00)
[2016-08-11 22:52] VITALS: BP 122/55
[2016-08-12 03:52] VITALS: BP 142/63
[2016-08-12 05:16] LABS: BASO # 0.1 x10^3/uL (0.0-0.2); BASO % 1 % (0-3); EOS % 1 % (0-3); HEMATOCRIT 30.4 % (39.0-53.0); HEMOGLOBIN 9.5 g/dL (13.0-17.5); LYMPH # 1.3 x10^3/uL (1.0-4.8); LYMPH % 11 % (24-48); MEAN CORPUSCULAR HEMOGLOBIN 28 pg (25-35); MEAN CORPUSCULAR HGB CONC 31 g/dL (31-37); MEAN CORPUSCULAR VOLUME 88 fL (79-100); MONO % 11 % (0-9); NEUT % 76 % (31-73); PLATELET COUNT 351 x10^3/uL (140-400); RED BLOOD COUNT 3.46 x10^6/uL (4.30-5.70); RED CELL DISTRIBUTION WIDTH 15.8 % (11.5-14.5); WHITE BLOOD COUNT 11.6 x10^3/uL (4.0-11.0)
[2016-08-12 05:35] LABS: CALCIUM 8.6 mg/dL (8.5-10.1); CREATININE 0.8 mg/dL (0.7-1.3); GFR 96.4
[2016-08-12] MEDS: PANTOPRAZOLE 40 MG TABLET. PO SCH ×2 (06:43→16:15)
[2016-08-12 07:00] VITALS: BP 138/63
[2016-08-12] MEDS: INSULIN ASPART 300 UNITS/3 ML INSULN.PEN SQ SCH ×3 (08:00→17:00)
[2016-08-12 08:46] LABS: IRON,SERUM 32 ug/dL (65-175)
[2016-08-12 09:04] VITALS: BP 138/63
[2016-08-12 09:11] LABS: % SAT IRON 12 % (15-34)
[2016-08-12] MEDS: LISINOPRIL 20 MG TABLET PO SCH (09:44)
[2016-08-12] MEDS: ASPIRIN 300 MG SUPP.RECT PR SCH (09:44)
[2016-08-12 10:27] VITALS: BP 119/57
--- NOTE | 2016-08-12 10:41 | PDOC ---
PROGRESS NOTES Subjective Subjective c/c - f/u of Leukocytosis Objective Objective Vital Signs Date Time Temp Pulse Resp B/P Pulse Ox O2 Delivery O2 Flow Rate FiO2 08/12/16 10:27 98.1 77 18 119/57 93 Room Air 98.1 08/12/16 09:04 2.0 Intake and Output 08/12/16 07:00 Intake Total 240 ml Balance 240 ml Intake Oral 240 ml # Voids 5 Physical Exam General: No acute distress HEENT: Atraumatic Assessment Assessment Problems Medical Problems: (1) Altered mental status Status: Acute (2) Dehydration Status: Acute (3) NSTEMI (non-ST elevated myocardial infarction) Status: Acute ASSESSMENT AND PLAN: The patient is a 66-year-old male with the following medical problems: 1. Leukocytosis/Persistent neutrophilia since 02/2016, per review of outside [facility] records. I suspect this is due to possible bone infection or certainly reactive to his ongoing health issues, likely significant peripheral vascular disease, warranting recent left above-knee amputation. Monitor cbc. Improved to 11.6 2. Transaminitis on admission: Appreciate GI consult. 3. Encephalopathy: New this admission. Improving 5. Significant peripheral vascular disease: Status post left above-knee amputation on 07/31. 6. Anemia - iron studies suggest anemia due to chronic disease. Comment Review of Relevant I have reviewed the following items chris (where applicable) has been applied. Labs Laboratory Tests Test 08/10/16 11:56 08/10/16 16:55 08/10/16 20:33 08/11/16 07:19 Glucose (Fingerstick) 150mg/dL (70-99) 196mg/dL (70-99) 240mg/dL (70-99) 68mg/dL (70-99) Test 08/11/16 11:11 08/11/16 16:36 08/11/16 18:03 08/11/16 20:44 Glucose (Fingerstick) 78mg/dL (70-99) 62mg/dL (70-99) 76mg/dL (70-99) 128mg/dL (70-99) Test 08/12/16 04:30 08/12/16 07:31 White Blood Count 11.6x10^3/uL (4.0-11.0) Red Blood Count 3.46x10^6/uL (4.30-5.70) Hemoglobin 9.5g/dL (13.0-17.5) Hematocrit 30.4% (39.0-53.0) Mean Corpuscular Volume 88fL (79-100) Mean Corpuscular Hemoglobin 28pg (25-35) Mean Corpuscular Hemoglobin Concent 31g/dL (31-37) Red Cell Distribution Width 15.8% (11.5-14.5) Platelet Count 351x10^3/uL (140-400) Neutrophils (%) (Auto) 76% (31-73) Lymphocytes (%) (Auto) 11% (24-48) Monocytes (%) (Auto) 11% (0-9) Eosinophils (%) (Auto) 1% (0-3) Basophils (%) (Auto) 1% (0-3) Neutrophils # (Auto) 8.8x10^3uL (1.8-7.7) Lymphocytes # (Auto) 1.3x10^3/uL (1.0-4.8) Monocytes # (Auto) 1.3x10^3/uL (0.0-1.1) Eosinophils # (Auto) 0.1x10^3/uL (0.0-0.7) Basophils # (Auto) 0.1x10^3/uL (0.0-0.2) Sodium Level 135mmol/L (136-145) Potassium Level 4.0mmol/L (3.5-5.1) Chloride Level 100mmol/L (98-107) Carbon Dioxide Level 29mmol/L (21-32) Anion Gap 6 (6-14) Blood Urea Nitrogen 16mg/dL (8-26) Creatinine 0.8mg/dL (0.7-1.3) Estimated GFR (Cockcroft-Gault) 96.4 Glucose Level 133mg/dL (70-99) Calcium Level 8.6mg/dL (8.5-10.1) Iron Level 32ug/dL (65-175) Total Iron Binding Capacity 272ug/dL (250-450) Iron Saturation 12% (15-34) Ferritin 1486ng/mL (26-388) Glucose (Fingerstick) 127mg/dL (70-99) Laboratory Tests Test 08/11/16 11:11 08/11/16 16:36 08/11/16 18:03 08/11/16 20:44 Glucose (Fingerstick) 78mg/dL (70-99) 62mg/dL (70-99) 76mg/dL (70-99) 128mg/dL (70-99) Test 08/12/16 04:30 08/12/16 07:31 White Blood Count 11.6x10^3/uL (4.0-11.0) Red Blood Count 3.46x10^6/uL (4.30-5.70) Hemoglobin 9.5g/dL (13.0-17.5) Hematocrit 30.4% (39.0-53.0) Mean Corpuscular Volume 88fL (79-100) Mean Corpuscular Hemoglobin 28pg (25-35) Mean Corpuscular Hemoglobin Concent 31g/dL (31-37) Red Cell Distribution Width 15.8% (11.5-14.5) Platelet Count 351x10^3/uL (140-400) Neutrophils (%) (Auto) 76% (31-73) Lymphocytes (%) (Auto) 11% (24-48) Monocytes (%) (Auto) 11% (0-9) Eosinophils (%) (Auto) 1% (0-3) Basophils (%) (Auto) 1% (0-3) Neutrophils # (Auto) 8.8x10^3uL (1.8-7.7) Lymphocytes # (Auto) 1.3x10^3/uL (1.0-4.8) Monocytes # (Auto) 1.3x10^3/uL (0.0-1.1) Eosinophils # (Auto) 0.1x10^3/uL (0.0-0.7) Basophils # (Auto) 0.1x10^3/uL (0.0-0.2) Sodium Level 135mmol/L (136-145) Potassium Level 4.0mmol/L (3.5-5.1) Chloride Level 100mmol/L (98-107) Carbon Dioxide Level 29mmol/L (21-32) Anion Gap 6 (6-14) Blood Urea Nitrogen 16mg/dL (8-26) Creatinine 0.8mg/dL (0.7-1.3) Estimated GFR (Cockcroft-Gault) 96.4 Glucose Level 133mg/dL (70-99) Calcium Level 8.6mg/dL (8.5-10.1) Iron Level 32ug/dL (65-175) Total Iron Binding Capacity 272ug/dL (250-450) Iron Saturation 12% (15-34) Ferritin 1486ng/mL (26-388) Glucose (Fingerstick) 127mg/dL (70-99) Microbiology 07/28/16 Blood Culture - Final, Complete NO GROWTH AFTER 5 DAYS Medications Current Medications Naloxone HCl 0.4 mg 0.4 mg 1X ONCE IV Last administered on 07/28/16 21:30; Start 07/28/16 at 21:30; Stop 07/28/16 at 21:31; Status DC Sodium Chloride 1,000 ml @ 1,000 mls/hr 1X ONCE IV Last administered on 21:30; Start 07/28/16 at 21:30; Stop 07/28/16 at 22:29; Status DC Ceftriaxone Sodium 1 gm/ Sodium Chloride 50 ml @ 100 mls/hr Q24H IV Last administered on 07/30/16 21:39; Start 07/29/16 at 21:00; Stop 07/31/16 at 17:33; Status DC Ceftriaxone Sodium 50 ml @ 100 mls/hr 1X ONCE IV Last administered on 21:35; Start 07/28/16 at 22:00; Stop 07/28/16 at 22:29; Status DC Heparin Sodium/ Dextrose 500 ml @ 0 mls/hr CONT PRN IV SEE I/O RECORD Last administered on 07/29/16 21:46; Start 07/28/16 at 22:00; Stop 07/30/16 at 07:59; Status DC Heparin Sodium (Porcine) 2,200 unit PRN Q6HRS PRN IV FOR UFH LEVEL LESS THAN 0.2 Last administered on 07/28/16 23:14; Start 07/28/16 at 22:00; Stop 07/30/16 at 08:00; Status DC Ondansetron HCl 4 mg 4 mg PRN Q8HRS PRN IV NAUSEA/VOMITING; Start 07/28/16 at 22 :15; Stop 07/29/16 at 22:14; Status DC Sodium Chloride 1,000 ml @ 125 mls/hr Q8H IV Last administered on 07/29/16 08: 16; Start 07/28/16 at 22:01; Stop 07/29/16 at 13:04; Status DC Metronidazole (FLAGYL 500Mmg PREMIX) 100 ml @ 100 mls/hr Q12HR IV Last administered on 08/05/16 09:16; Start 07/28/16 at 22:30; Stop 08/05/16 at 13:02 ; Status DC Hydralazine HCl (Apresoline) 10 mg PRN Q4HRS PRN IVP ELEVATED BP, SEE COMMENTS ; Start 07/29/16 at 03:00 Insulin Aspart (Novolog) 0-9 UNITS TIDWMEALS SQ Last administered on 07/31/16 17:51; Start 07/29/16 at 08:00; Stop 08/01/16 at 08:36; Status DC Dextrose 12.5 gm PRN Q15MIN PRN IV SEE COMMENTS Last administered on 08/11/16 18:03; Start 07/29/16 at 03:00 Insulin Aspart (Novolog) 8 units 1X ONCE SQ Last administered on 07/29/16 08: 20; Start 07/29/16 at 08:30; Stop 07/29/16 at 08:31; Status DC Morphine Sulfate 2 mg PRN Q2HR PRN IV PAIN Last administered on 08/11/16 17:57 ; Start 07/29/16 at 09:00 Aspirin (Aspirin) 300 mg 1X ONCE [place] Last administered on 07/29/16 13:17; Start 07/29/16 at 10:30; Stop 07/29/16 at 10:31; Status DC Heparin Sodium (Porcine) 1,800 unit PRN Q6HRS PRN IV FOR UFH LEVEL LESS THAN 0.2 Last administered on 07/29/16 10:35; Start 07/29/16 at 10:15; Stop 07/30/16 at 08:00; Status DC Metoprolol Tartrate (Lopressor) 5 mg Q6HRS IVP Last administered on 08/04/16 05:34; Start 07/29/16 at 13:00; Stop 08/04/16 at 14:42; Status DC Aspirin 150 mg 150 mg DAILY [place] Last administered on 08/04/16 09:03; Start 07/30 at 09:00; Stop 08/04/16 at 14:42; Status DC Sodium Chloride 1,000 ml @ 60 mls/hr [id number] IV Last administered on 07/29/16 13:25; Start 07/29/16 at 13:30; Stop 07/29/16 at 13:31; Status DC Heparin Sodium (Porcine) 5000 unit/Sodium Chloride 505 ml @ 505 mls/hr 1X PERIOP ONCE IRR Last administered on 07/29/16 15:26; Start 07/29/16 at 14:00; Stop 07/29/16 at 14:59; Status DC Cefazolin Sodium/ Sodium Chloride (Ancef/Iv Sodium Chloride 0.9% 500ml Bag) 500 ml @ 500 mls/hr 1X PERIOP ONCE IRR Last administered on 07/29/16 15:26; Start 07/29/16 at 14:00; Stop 07/29/16 at 14:59; Status DC Gelatin (Gelfoam Size 12-7mm) 1 each STK-MED ONCE .ROUTE ; Start 07/29/16 at 13: 54; Stop 07/29/16 at 13:55; Status DC Cellulose 1 each STK-MED ONCE .ROUTE ; Start 07/29/16 at 13:54; Stop 07/29/16 at 13:55; Status DC Iohexol (Omnipaque 300 Mg/ml) 50 ml STK-MED ONCE .ROUTE ; Start 07/29/16 at 13:54 ; Stop 07/29/16 at 13:55; Status DC Gelatin (Gelfoam Size 100) 1 each STK-MED ONCE .ROUTE ; Start 07/29/16 at 13:54 ; Stop 07/29/16 at 13:55; Status DC Papaverine HCl 60 mg STK-MED ONCE .ROUTE ; Start 07/29/16 at 13:54; Stop 07/29/16 at 13:55; Status DC Thrombin 20,000 unit STK-MED ONCE TP ; Start 07/29/16 at 13:54; Stop 07/29/16 at 13:55; Status DC Midazolam HCl (Versed) 2 mg STK-MED ONCE .ROUTE ; Start 07/29/16 at 14:14; Stop 07/29/16 at 14:15; Status DC Fentanyl Citrate (Fentanyl 5ml Vial) 250 mcg STK-MED ONCE .ROUTE ; Start at 14:14; Stop 07/29/16 at 14:15; Status DC Rocuronium Firth 50 mg 50 mg STK-MED ONCE .ROUTE ; Start 07/29/16 at 14:14; Stop 07/29/16 at 14:15; Status DC Propofol (Diprivan) 20 ml @ As Directed STK-MED ONCE IV ; Start 07/29/16 at 14:14 ; Stop 07/29/16 at 14:15; Status DC Dexamethasone Sodium Phosphate (Decadron) 20 mg STK-MED ONCE .ROUTE ; Start 07/29 at 14:14; Stop 07/29/16 at 14:15; Status DC Ondansetron HCl (Zofran) 4 mg STK-MED ONCE .ROUTE ; Start 07/29/16 at 14:14; Stop 07/29/16 at 14:15; Status DC Lidocaine HCl 100 mg STK-MED ONCE .ROUTE ; Start 07/29/16 at 14:15; Stop 07/29/16 at 14:16; Status DC Succinylcholine Chloride (Anectine) 200 mg STK-MED ONCE .ROUTE ; Start 07/29/16 at 14:43; Stop 07/29/16 at 14:44; Status DC Phenylephrine HCl 1 mg STK-MED ONCE IV ; Start 07/29/16 at 15:01; Stop 07/29/16 at 15:02; Status DC Ephedrine Sulfate 50 mg 50 mg STK-MED ONCE .ROUTE ; Start 07/29/16 at 15:28; Stop 07/29/16 at 15:29; Status DC Insulin Human Regular/Sodium Chloride (Novolin R Vial/ Iv Normal Saline 150ml) 151.5 ml @ 7.29 mls/hr 1X ONCE IV ; Start 07/29/16 at 16:45; Stop 07/30/16 at 12 :52; Status DC Info (Anti-Coagulation Monitoring By Pharmacy) 1 each PRN DAILY PRN MC SEE COMMENTS Last administered on 07/29/16t 17:00; Start 07/29/16 at 17:00; Stop at 12:51; Status DC Heparin Sodium (Porcine) 10,000 unit STK-MED ONCE .ROUTE ; Start 07/29/16 at 17: 02; Stop 07/29/16 at 17:03; Status DC Neostigmine Methylsulfate 5 mg STK-MED ONCE .ROUTE ; Start 07/29/16 at 20:52; Stop 07/29/16 at 20:53; Status DC Glycopyrrolate (Robinul) 1 mg STK-MED ONCE .ROUTE ; Start 07/29/16 at 20:52; Stop 07/29/16 at 20:53; Status DC Fentanyl Citrate (Fentanyl 2ml Vial) 50 mcg PRN Q5MIN PRN IV Acute Pain; Start 07/29/16 at 21:15; Stop 07/30/16 at 21:14; Status DC Morphine Sulfate 4 mg PRN Q10MIN PRN IV Moderate Pain; Start 07/29/16 at 21:15; Stop 07/30/16 at 21:14; Status DC Hydromorphone HCl (Dilaudid) 0.4 mg PRN Q10MIN PRN IV Moderate to severe pain; Start 07/29/16 at 21:15; Stop 07/30/16 at 21:14; Status DC Meperidine HCl (Demerol) 12.5 mg PRN Q5MIN PRN IV SHIVERING; Start 07/29/16 at 21:15; Stop 07/30/16 at 00:00; Status DC Prochlorperazine Edisylate (Compazine) 5 mg PRN Q6HRS PRN IV Nausea/Vomiting, 1st Choice; Start 07/29/16 at 21:15; Stop 07/30/16 at 21:14; Status DC Diphenhydramine HCl 12.5 mg 12.5 mg PRN Q2HR PRN IV ITCHING; Start 07/29/16 at 21:15; Stop 07/30/16 at 21:14; Status DC Sodium Chloride (Iv Sodium Chloride 0.45%) 1,000 ml @ 100 mls/hr Q10H IV Last administered on 07/29/16t 21:59; Start 07/29/16 at 22:00; Stop 07/30/16 at 09:41; Status DC Cefazolin Sodium/ Dextrose (Ancef 2gm Premix) 2 gm STK-MED ONCE IV ; Start at 17:35; Stop 07/30/16 at 08:53; Status DC Pantoprazole Sodium 40 mg 40 mg [id number] IVP Last administered on 08/01/16 17:18 ; Start 07/30/16 at 18:00; Stop 08/01/16 at 20:26; Status DC Sodium Chloride 1,000 ml @ 60 mls/hr [id number] IV Last administered on 07/30/16 09:47; Start 07/30/16 at 09:45; Stop 07/30/16 at 12:47; Status DC Cefazolin Sodium/ Sodium Chloride (Ancef/Iv Sodium Chloride 0.9% 500ml Bag) 500 ml @ 500 mls/hr 1X PERIOP ONCE IRR Last administered on 07/31/16 13:47; Start 07/31/16 at 06:00; Stop 07/31/16 at 06:59; Status DC Insulin Detemir (Levemir) 15 units [id number] SQ Last administered on 07/30/16 12: 57; Start 07/30/16 at 13:00; Stop 08/01/16 at 08:36; Status DC Insulin Aspart 12 units 12 units 1X ONCE SQ ; Start 07/30/16 at 12:45; Stop 07/30 at 12:47; Status DC Amino Acids/ Electrolytes/ Dextrose (Clinimix E 4.25%-5% Solution) 1,000 ml @ 80 mls/hr [id number] IV Last administered on 08/02/16 17:50; Start 07/30/16 at 13: 00; Stop 08/03/16 at 03:41; Status DC Ondansetron HCl (Zofran) 4 mg PRN Q6HRS PRN IV Nausea; Start 07/31/16 at 07:00; Stop 08/01/16 at 06:59; Status DC Fentanyl Citrate (Fentanyl 2ml Vial) 25 mcg PRN Q5MIN PRN IV MILD PAIN; Start 07/31/16 at 07:00; Stop 08/01/16 at 06:59; Status DC Fentanyl Citrate (Fentanyl 2ml Vial) 50 mcg PRN Q5MIN PRN IV MODERATE PAIN; Start 07/31/16 at 07:00; Stop 08/01/16 at 06:59; Status DC Morphine Sulfate 1 mg 1 mg PRN Q10MIN PRN IV SEVERE PAIN; Start 07/31/16 at 07: 00; Stop 08/01/16 at 06:59; Status DC Lactated Ringer's (Iv Lactated Ringers) 1,000 ml @ 30 mls/hr Q24H IV Last administered on 07/31/16 15:53; Start 07/31/16 at 07:00; Stop 07/31/16 at 18:59; Status DC Lidocaine HCl 2 ml 1X PRN PRN ID IV START; Start 07/31/16 at 07:00; Stop at 06:59; Status DC Hydromorphone HCl (Dilaudid) 0.5 mg PRN Q10MIN PRN IV SEVERE PAIN, Second choice; Start 07/31/16 at 07:00; Stop 08/01/16 at 06:59; Status DC Prochlorperazine Edisylate (Compazine) 5 mg PACU PRN PRN IV NAUSEA; Start at 07:00; Stop 08/01/16 at 06:59; Status DC Insulin Detemir (Levemir) 10 units QHS SQ Last administered on 07/31/16 21:49; Start 07/31/16 at 21:00; Stop 08/01/16 at 08:36; Status DC Enalaprilat (Vasotec) 1.25 mg Q6HRS IV ; Start 07/31/16 at 12:00; Stop 07/31/16 at 12:00; Status DC Enalaprilat (Vasotec) 0.625 mg Q6HRS IV Last administered on 08/04/16 05:35; Start 07/31/16 at 12:00; Stop 08/04/16 at 14:42; Status DC Fentanyl Citrate (Fentanyl 2ml Vial) 100 mcg STK-MED ONCE .ROUTE ; Start at 12:49; Stop 07/31/16 at 12:50; Status DC Rocuronium Firth (Zemuron) 50 mg STK-MED ONCE .ROUTE ; Start 07/31/16 at 12:49 ; Stop 07/31/16 at 12:50; Status DC Lidocaine HCl 100 mg 100 mg STK-MED ONCE .ROUTE ; Start 07/31/16 at 13:17; Stop 07/31/16 at 13:18; Status DC Propofol (Diprivan) 20 ml @ As Directed STK-MED ONCE IV ; Start 07/31/16 at 13:17 ; Stop 07/31/16 at 13:18; Status DC Succinylcholine Chloride (Anectine) 200 mg STK-MED ONCE .ROUTE ; Start 07/31/16 at 13:30; Stop 07/31/16 at 13:31; Status DC Dexamethasone Sodium Phosphate (Decadron) 20 mg STK-MED ONCE .ROUTE ; Start 07/31 at 13:42; Stop 07/31/16 at 13:43; Status DC Ondansetron HCl (Zofran) 4 mg STK-MED ONCE .ROUTE ; Start 07/31/16 at 13:42; Stop 07/31/16 at 13:43; Status DC Phenylephrine HCl 1 mg STK-MED ONCE IV ; Start 07/31/16 at 13:47; Stop 07/31/16 at 13:48; Status DC Fentanyl Citrate (Fentanyl 2ml Vial) 100 mcg STK-MED ONCE .ROUTE ; Start at 14:26; Stop 07/31/16 at 14:27; Status DC Sevoflurane (Ultane) 60 ml STK-MED ONCE IH ; Start 07/31/16 at 15:13; Stop at 15:14; Status DC Insulin Aspart (Novolog Vial) 3 unit 1X ONCE SQ ; Start 07/31/16 at 15:45; Stop 07/31/16 at 15:45; Status DC Insulin Aspart (Novolog) 3 units 1X ONCE SQ ; Start 07/31/16 at 15:45; Stop 07/31 at 15:46; Status Cancel Insulin Aspart (Novolog Vial) 100 unit STK-MED ONCE SQ ; Start 07/31/16 at 15:41 ; Stop 07/31/16 at 15:42; Status DC Insulin Aspart (Novolog Vial) 3 unit 1X ONCE SQ ; Start 07/31/16 at 16:00; Stop 07/31/16 at 16:01; Status Cancel Insulin Aspart 3 unit 3 unit 1X ONCE SQ Last administered on 07/31/16t 15:57; Start 07/31/16 at 16:00; Stop 07/31/16 at 16:01; Status DC Ceftriaxone Sodium/Sodium Chloride (Rocephin/Iv Sodium Chloride 0.9% 50ml) 50 ml @ 100 mls/hr Q24H IV Last administered on 08/08/16 14:46; Start 08/01/16 at 14:00; Stop 08/08/16 at 15:27; Status DC Insulin Aspart (Novolog) 0-9 UNITS Q6HRS SQ Last administered on 08/03/16 18: 14; Start 08/01/16 at 12:00; Stop 08/04/16 at 12:15; Status DC Insulin Detemir (Levemir) 30 units QHS SQ Last administered on 08/10/16 20:46 ; Start 08/01/16 at 21:00; Stop 08/11/16 at 08:40; Status DC Pantoprazole Sodium 40 mg 40 mg BID IVP Last administered on 08/10/16 20:41; Start 08/01/16 at 21:00; Stop 08/11/16 at 08:40; Status DC Amino Acids/ Electrolytes 1,000 ml @ 80 mls/hr [id number] IV Last administered on 08/03/16 05:09; Start 08/03/16 at 03:41; Stop 08/03/16 at 17:24; Status DC Amino Acids/ Electrolytes (Clinimix E 2.75%-5% Solution) 2,000 ml @ 80 mls/hr Q24H IV Last administered on 08/09/16 11:42; Start 08/03/16 at 17:24; Stop at 16:22; Status DC Insulin Aspart (Novolog) 0-9 UNITS TIDWMEALS SQ Last administered on 08/10/16 17:03; Start 08/04/16 at 12:11 Aspirin (Ecotrin) 81 mg [id number] PO Last administered on 08/05/16 09:14; Start 08/05/16 at 08:00; Stop 08/05/16 at 13:50; Status DC Carvedilol (Coreg) 6.25 mg BIDWMEALS PO Last administered on 08/05/16 09:15; Start 08/04/16 at 17:00; Stop 08/05/16 at 13:50; Status DC Lisinopril (Prinivil) 5 mg HS PO Last administered on 08/04/16 21:06; Start at 21:00; Stop 08/05/16 at 13:50; Status DC Cefpodoxime Proxetil (Vantin) 200 mg BID PO ; Start 08/05/16 at 14:00; Stop at 14:08; Status DC Metronidazole (Flagyl) 500 mg BID PO ; Start 08/05/16 at 21:00; Status Cancel Furosemide (Lasix) 20 mg 1X ONCE IVP Last administered on 08/05/16 13:54; Start 08/05/16 at 13:15; Stop 08/05/16 at 13:16; Status DC Aspirin (Aspirin) 300 mg DAILY [place] Last administered on 08/12/16 09:44; Start 08/06/16 at 09:00 Metoprolol Tartrate (Lopressor) 5 mg Q6HRS IVP Last administered on 08/11/16 00:13; Start 08/05/16 at 18:00; Stop 08/11/16 at 08:40; Status DC Enalaprilat (Vasotec) 0.625 mg Q6H IV Last administered on 08/11/16 04:29; Start 08/05/16 at 16:00; Stop 08/11/16 at 08:40; Status DC Ondansetron HCl 4 mg 4 mg PRN Q6HRS PRN IV NAUSEA/VOMITING Last administered on 08/06/16 10:16; Start 08/05/16 at 17:15 Metronidazole (FLAGYL 500Mmg PREMIX) 100 ml @ 100 mls/hr Q12HR IV Last administered on 08/08/16 08:18; Start 08/05/16 at 22:00; Stop 08/08/16 at 15:27 ; Status DC Insulin Detemir (Levemir) 10 units QHS SQ Last administered on 08/11/16 21:29 ; Start 08/11/16 at 21:00 Lisinopril (Prinivil) 20 mg DAILY PO Last administered on 08/12/16 09:44; Start 08/11/16 at 09:00 Pantoprazole Sodium (Protonix) 40 mg BIDAC PO Last administered on 08/12/16 06 :43; Start 08/11/16 at 09:00 Active Scripts Active Reported Hydrocodone-Apap 5-325 (Hydrocodone Bit/Acetaminophen) 1 Each Tablet 1 Tab PO Q4HRS PRN Vitals/I & O Vital Sign - Last 24 Hours 08/11/16 08/11/16 08/11/16 08/11/16 11:15 15:18 17:57 19:46 Temp 98.2 97.7 98.2 97.7 Pulse 64 60 76 Resp 16 18 16 B/P 126/50 135/54 135/56 Pulse Ox 95 95 96 O2 Delivery Room Air Room Air Room Air 08/11/16 08/12/16 08/12/16 08/12/16 22:52 03:52 07:00 09:04 Temp 98.6 98.4 97.6 97.6 98.6 98.4 97.6 97.6 Pulse 86 66 78 78 Resp 14 16 18 18 B/P 122/55 142/63 138/63 138/63 Pulse Ox 94 94 95 95 O2 Delivery Room Air Room Air Nasal Cannula Nasal Cannula O2 Flow Rate 2.0 2.0 08/12/16 08/12/16 09:44 10:27 Temp 98.1 98.1 Pulse 78 77 Resp 18 B/P 138/63 119/57 Pulse Ox 93 O2 Delivery Room Air Intake and Output 08/11/16 08/11/16 08/12/16 15:00 23:00 07:00 Intake Total 240 ml Balance 240 ml Nutrition Consultation Dietary Evaluation: Recommendations by RD: Increase Calorie Intake Comments: -Rec. 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
--- NOTE | 2016-08-12 10:41 | PDOC ---
Subjective: Subjective: Says ate half of breakfast. Objective: Objective: Per RN - ate some sausage, eggs, applesauce, and Magic cup w/ help. Alone had 1 drink of juice. Vital Signs: Vital Signs Date Time Temp Pulse Resp B/P Pulse Ox O2 Delivery O2 Flow Rate FiO2 08/12/16 10:27 98.1 77 18 119/57 93 Room Air 98.1 08/12/16 09:04 2.0 Labs: Laboratory Tests Test 08/11/16 11:11 08/11/16 16:36 08/11/16 18:03 08/11/16 20:44 Glucose (Fingerstick) 78mg/dL 62mg/dL 76mg/dL 128mg/dL Test 08/12/16 04:30 08/12/16 07:31 White Blood Count 11.6x10^3/uL Red Blood Count 3.46x10^6/uL Hemoglobin 9.5g/dL Hematocrit 30.4% Mean Corpuscular Volume 88fL Mean Corpuscular Hemoglobin 28pg Mean Corpuscular Hemoglobin Concent 31g/dL Red Cell Distribution Width 15.8% Platelet Count 351x10^3/uL Neutrophils (%) (Auto) 76% Lymphocytes (%) (Auto) 11% Monocytes (%) (Auto) 11% Eosinophils (%) (Auto) 1% Basophils (%) (Auto) 1% Neutrophils # (Auto) 8.8x10^3uL Lymphocytes # (Auto) 1.3x10^3/uL Monocytes # (Auto) 1.3x10^3/uL Eosinophils # (Auto) 0.1x10^3/uL Basophils # (Auto) 0.1x10^3/uL Sodium Level 135mmol/L Potassium Level 4.0mmol/L Chloride Level 100mmol/L Carbon Dioxide Level 29mmol/L Anion Gap 6 Blood Urea Nitrogen 16mg/dL Creatinine 0.8mg/dL Estimated GFR (Cockcroft-Gault) 96.4 Glucose Level 133mg/dL Calcium Level 8.6mg/dL Iron Level 32ug/dL Total Iron Binding Capacity 272ug/dL Iron Saturation 12% Ferritin 1486ng/mL Glucose (Fingerstick) 127mg/dL PE: GEN: NAD LUNGS: CTAB HEART: RRR ABD: NABS, S/ND/NT NEURO/PSYCH: awake, alert, confused A/P: AMS -not motivated to eat alone but eats w/o issue w/ assistance -on PPI -- No new GI recs. KANCHAN BALLARD Aug 12, 2016 10:41
--- NOTE | 2016-08-12 11:11 | PDOC ---
PROGRESS NOTES Subjective Subjective None. Nodded head 'yes' that I may look at his incision on his leg. Objective Objective Vascular Surgery - POD#12 Left BKA LLE: Incision intact and healing well. No swelling or incisional issues. Plan: Placement pending. Might be d/c'ed to rehab today? Follow up for staple removal scheduled for September [address] Dempsey at 0845. Will sign off at this time. Vital Signs Date Time Temp Pulse Resp B/P Pulse Ox O2 Delivery O2 Flow Rate FiO2 08/12/16 10:27 98.1 77 18 119/57 93 Room Air 98.1 08/12/16 09:04 2.0 Intake and Output 08/12/16 07:00 Intake Total 240 ml Balance 240 ml Intake Oral 240 ml # Voids 5 Assessment Assessment Problems Medical Problems: (1) Altered mental status Status: Acute (2) Dehydration Status: Acute (3) NSTEMI (non-ST elevated myocardial infarction) Status: Acute Comment Review of Relevant I have reviewed the following items chris (where applicable) has been applied. Labs Laboratory Tests Test 08/10/16 11:56 08/10/16 16:55 08/10/16 20:33 08/11/16 07:19 Glucose (Fingerstick) 150mg/dL (70-99) 196mg/dL (70-99) 240mg/dL (70-99) 68mg/dL (70-99) Test 08/11/16 11:11 08/11/16 16:36 08/11/16 18:03 08/11/16 20:44 Glucose (Fingerstick) 78mg/dL (70-99) 62mg/dL (70-99) 76mg/dL (70-99) 128mg/dL (70-99) Test 08/12/16 04:30 08/12/16 07:31 White Blood Count 11.6x10^3/uL (4.0-11.0) Red Blood Count 3.46x10^6/uL (4.30-5.70) Hemoglobin 9.5g/dL (13.0-17.5) Hematocrit 30.4% (39.0-53.0) Mean Corpuscular Volume 88fL (79-100) Mean Corpuscular Hemoglobin 28pg (25-35) Mean Corpuscular Hemoglobin Concent 31g/dL (31-37) Red Cell Distribution Width 15.8% (11.5-14.5) Platelet Count 351x10^3/uL (140-400) Neutrophils (%) (Auto) 76% (31-73) Lymphocytes (%) (Auto) 11% (24-48) Monocytes (%) (Auto) 11% (0-9) Eosinophils (%) (Auto) 1% (0-3) Basophils (%) (Auto) 1% (0-3) Neutrophils # (Auto) 8.8x10^3uL (1.8-7.7) Lymphocytes # (Auto) 1.3x10^3/uL (1.0-4.8) Monocytes # (Auto) 1.3x10^3/uL (0.0-1.1) Eosinophils # (Auto) 0.1x10^3/uL (0.0-0.7) Basophils # (Auto) 0.1x10^3/uL (0.0-0.2) Sodium Level 135mmol/L (136-145) Potassium Level 4.0mmol/L (3.5-5.1) Chloride Level 100mmol/L (98-107) Carbon Dioxide Level 29mmol/L (21-32) Anion Gap 6 (6-14) Blood Urea Nitrogen 16mg/dL (8-26) Creatinine 0.8mg/dL (0.7-1.3) Estimated GFR (Cockcroft-Gault) 96.4 Glucose Level 133mg/dL (70-99) Calcium Level 8.6mg/dL (8.5-10.1) Iron Level 32ug/dL (65-175) Total Iron Binding Capacity 272ug/dL (250-450) Iron Saturation 12% (15-34) Ferritin 1486ng/mL (26-388) Glucose (Fingerstick) 127mg/dL (70-99) Laboratory Tests Test 08/11/16 11:11 08/11/16 16:36 08/11/16 18:03 08/11/16 20:44 Glucose (Fingerstick) 78mg/dL (70-99) 62mg/dL (70-99) 76mg/dL (70-99) 128mg/dL (70-99) Test 08/12/16 04:30 08/12/16 07:31 White Blood Count 11.6x10^3/uL (4.0-11.0) Red Blood Count 3.46x10^6/uL (4.30-5.70) Hemoglobin 9.5g/dL (13.0-17.5) Hematocrit 30.4% (39.0-53.0) Mean Corpuscular Volume 88fL (79-100) Mean Corpuscular Hemoglobin 28pg (25-35) Mean Corpuscular Hemoglobin Concent 31g/dL (31-37) Red Cell Distribution Width 15.8% (11.5-14.5) Platelet Count 351x10^3/uL (140-400) Neutrophils (%) (Auto) 76% (31-73) Lymphocytes (%) (Auto) 11% (24-48) Monocytes (%) (Auto) 11% (0-9) Eosinophils (%) (Auto) 1% (0-3) Basophils (%) (Auto) 1% (0-3) Neutrophils # (Auto) 8.8x10^3uL (1.8-7.7) Lymphocytes # (Auto) 1.3x10^3/uL (1.0-4.8) Monocytes # (Auto) 1.3x10^3/uL (0.0-1.1) Eosinophils # (Auto) 0.1x10^3/uL (0.0-0.7) Basophils # (Auto) 0.1x10^3/uL (0.0-0.2) Sodium Level 135mmol/L (136-145) Potassium Level 4.0mmol/L (3.5-5.1) Chloride Level 100mmol/L (98-107) Carbon Dioxide Level 29mmol/L (21-32) Anion Gap 6 (6-14) Blood Urea Nitrogen 16mg/dL (8-26) Creatinine 0.8mg/dL (0.7-1.3) Estimated GFR (Cockcroft-Gault) 96.4 Glucose Level 133mg/dL (70-99) Calcium Level 8.6mg/dL (8.5-10.1) Iron Level 32ug/dL (65-175) Total Iron Binding Capacity 272ug/dL (250-450) Iron Saturation 12% (15-34) Ferritin 1486ng/mL (26-388) Glucose (Fingerstick) 127mg/dL (70-99) Microbiology 07/28/16 Blood Culture - Final, Complete NO GROWTH AFTER 5 DAYS Medications Current Medications Naloxone HCl 0.4 mg 0.4 mg 1X ONCE IV Last administered on 07/28/16 21:30; Start 07/28/16 at 21:30; Stop 07/28/16 at 21:31; Status DC Sodium Chloride 1,000 ml @ 1,000 mls/hr 1X ONCE IV Last administered on 21:30; Start 07/28/16 at 21:30; Stop 07/28/16 at 22:29; Status DC Ceftriaxone Sodium 1 gm/ Sodium Chloride 50 ml @ 100 mls/hr Q24H IV Last administered on 07/30/16 21:39; Start 07/29/16 at 21:00; Stop 07/31/16 at 17:33; Status DC Ceftriaxone Sodium 50 ml @ 100 mls/hr 1X ONCE IV Last administered on 21:35; Start 07/28/16 at 22:00; Stop 07/28/16 at 22:29; Status DC Heparin Sodium/ Dextrose 500 ml @ 0 mls/hr CONT PRN IV SEE I/O RECORD Last administered on 07/29/16 21:46; Start 07/28/16 at 22:00; Stop 07/30/16 at 07:59; Status DC Heparin Sodium (Porcine) 2,200 unit PRN Q6HRS PRN IV FOR UFH LEVEL LESS THAN 0.2 Last administered on 07/28/16 23:14; Start 07/28/16 at 22:00; Stop 07/30/16 at 08:00; Status DC Ondansetron HCl 4 mg 4 mg PRN Q8HRS PRN IV NAUSEA/VOMITING; Start 07/28/16 at 22 :15; Stop 07/29/16 at 22:14; Status DC Sodium Chloride 1,000 ml @ 125 mls/hr Q8H IV Last administered on 07/29/16 08: 16; Start 07/28/16 at 22:01; Stop 07/29/16 at 13:04; Status DC Metronidazole (FLAGYL 500Mmg PREMIX) 100 ml @ 100 mls/hr Q12HR IV Last administered on 08/05/16 09:16; Start 07/28/16 at 22:30; Stop 08/05/16 at 13:02 ; Status DC Hydralazine HCl (Apresoline) 10 mg PRN Q4HRS PRN IVP ELEVATED BP, SEE COMMENTS ; Start 07/29/16 at 03:00 Insulin Aspart (Novolog) 0-9 UNITS TIDWMEALS SQ Last administered on 07/31/16 17:51; Start 07/29/16 at 08:00; Stop 08/01/16 at 08:36; Status DC Dextrose 12.5 gm PRN Q15MIN PRN IV SEE COMMENTS Last administered on 08/11/16 18:03; Start 07/29/16 at 03:00 Insulin Aspart (Novolog) 8 units 1X ONCE SQ Last administered on 07/29/16 08: 20; Start 07/29/16 at 08:30; Stop 07/29/16 at 08:31; Status DC Morphine Sulfate 2 mg PRN Q2HR PRN IV PAIN Last administered on 08/11/16 17:57 ; Start 07/29/16 at 09:00 Aspirin (Aspirin) 300 mg 1X ONCE [place] Last administered on 07/29/16 13:17; Start 07/29/16 at 10:30; Stop 07/29/16 at 10:31; Status DC Heparin Sodium (Porcine) 1,800 unit PRN Q6HRS PRN IV FOR UFH LEVEL LESS THAN 0.2 Last administered on 07/29/16 10:35; Start 07/29/16 at 10:15; Stop 07/30/16 at 08:00; Status DC Metoprolol Tartrate (Lopressor) 5 mg Q6HRS IVP Last administered on 08/04/16 05:34; Start 07/29/16 at 13:00; Stop 08/04/16 at 14:42; Status DC Aspirin 150 mg 150 mg DAILY [place] Last administered on 08/04/16 09:03; Start 07/30 at 09:00; Stop 08/04/16 at 14:42; Status DC Sodium Chloride 1,000 ml @ 60 mls/hr [id number] IV Last administered on 07/29/16 13:25; Start 07/29/16 at 13:30; Stop 07/29/16 at 13:31; Status DC Heparin Sodium (Porcine) 5000 unit/Sodium Chloride 505 ml @ 505 mls/hr 1X PERIOP ONCE IRR Last administered on 07/29/16 15:26; Start 07/29/16 at 14:00; Stop 07/29/16 at 14:59; Status DC Cefazolin Sodium/ Sodium Chloride (Ancef/Iv Sodium Chloride 0.9% 500ml Bag) 500 ml @ 500 mls/hr 1X PERIOP ONCE IRR Last administered on 07/29/16 15:26; Start 07/29/16 at 14:00; Stop 07/29/16 at 14:59; Status DC Gelatin (Gelfoam Size 12-7mm) 1 each STK-MED ONCE .ROUTE ; Start 07/29/16 at 13: 54; Stop 07/29/16 at 13:55; Status DC Cellulose 1 each STK-MED ONCE .ROUTE ; Start 07/29/16 at 13:54; Stop 07/29/16 at 13:55; Status DC Iohexol (Omnipaque 300 Mg/ml) 50 ml STK-MED ONCE .ROUTE ; Start 07/29/16 at 13:54 ; Stop 07/29/16 at 13:55; Status DC Gelatin (Gelfoam Size 100) 1 each STK-MED ONCE .ROUTE ; Start 07/29/16 at 13:54 ; Stop 07/29/16 at 13:55; Status DC Papaverine HCl 60 mg STK-MED ONCE .ROUTE ; Start 07/29/16 at 13:54; Stop 07/29/16 at 13:55; Status DC Thrombin 20,000 unit STK-MED ONCE TP ; Start 07/29/16 at 13:54; Stop 07/29/16 at 13:55; Status DC Midazolam HCl (Versed) 2 mg STK-MED ONCE .ROUTE ; Start 07/29/16 at 14:14; Stop 07/29/16 at 14:15; Status DC Fentanyl Citrate (Fentanyl 5ml Vial) 250 mcg STK-MED ONCE .ROUTE ; Start at 14:14; Stop 07/29/16 at 14:15; Status DC Rocuronium [place] 50 mg 50 mg STK-MED ONCE .ROUTE ; Start 07/29/16 at 14:14; Stop 07/29/16 at 14:15; Status DC Propofol (Diprivan) 20 ml @ As Directed STK-MED ONCE IV ; Start 07/29/16 at 14:14 ; Stop 07/29/16 at 14:15; Status DC Dexamethasone Sodium Phosphate (Decadron) 20 mg STK-MED ONCE .ROUTE ; Start 07/29 at 14:14; Stop 07/29/16 at 14:15; Status DC Ondansetron HCl (Zofran) 4 mg STK-MED ONCE .ROUTE ; Start 07/29/16 at 14:14; Stop 07/29/16 at 14:15; Status DC Lidocaine HCl 100 mg STK-MED ONCE .ROUTE ; Start 07/29/16 at 14:15; Stop 07/29/16 at 14:16; Status DC Succinylcholine Chloride (Anectine) 200 mg STK-MED ONCE .ROUTE ; Start 07/29/16 at 14:43; Stop 07/29/16 at 14:44; Status DC Phenylephrine HCl 1 mg STK-MED ONCE IV ; Start 07/29/16 at 15:01; Stop 07/29/16 at 15:02; Status DC Ephedrine Sulfate 50 mg 50 mg STK-MED ONCE .ROUTE ; Start 07/29/16 at 15:28; Stop 07/29/16 at 15:29; Status DC Insulin Human Regular/Sodium Chloride (Novolin R Vial/ Iv Normal Saline 150ml) 151.5 ml @ 7.29 mls/hr 1X ONCE IV ; Start 07/29/16 at 16:45; Stop 07/30/16 at 12 :52; Status DC Info (Anti-Coagulation Monitoring By Pharmacy) 1 each PRN DAILY PRN MC SEE COMMENTS Last administered on 07/29/16t 17:00; Start 07/29/16 at 17:00; Stop at 12:51; Status DC Heparin Sodium (Porcine) 10,000 unit STK-MED ONCE .ROUTE ; Start 07/29/16 at 17: 02; Stop 07/29/16 at 17:03; Status DC Neostigmine Methylsulfate 5 mg STK-MED ONCE .ROUTE ; Start 07/29/16 at 20:52; Stop 07/29/16 at 20:53; Status DC Glycopyrrolate (Robinul) 1 mg STK-MED ONCE .ROUTE ; Start 07/29/16 at 20:52; Stop 07/29/16 at 20:53; Status DC Fentanyl Citrate (Fentanyl 2ml Vial) 50 mcg PRN Q5MIN PRN IV Acute Pain; Start 07/29/16 at 21:15; Stop 07/30/16 at 21:14; Status DC Morphine Sulfate 4 mg PRN Q10MIN PRN IV Moderate Pain; Start 07/29/16 at 21:15; Stop 07/30/16 at 21:14; Status DC Hydromorphone HCl (Dilaudid) 0.4 mg PRN Q10MIN PRN IV Moderate to severe pain; Start 07/29/16 at 21:15; Stop 07/30/16 at 21:14; Status DC Meperidine HCl (Demerol) 12.5 mg PRN Q5MIN PRN IV SHIVERING; Start 07/29/16 at 21:15; Stop 07/30/16 at 00:00; Status DC Prochlorperazine Edisylate (Compazine) 5 mg PRN Q6HRS PRN IV Nausea/Vomiting, 1st Choice; Start 07/29/16 at 21:15; Stop 07/30/16 at 21:14; Status DC Diphenhydramine HCl 12.5 mg 12.5 mg PRN Q2HR PRN IV ITCHING; Start 07/29/16 at 21:15; Stop 07/30/16 at 21:14; Status DC Sodium Chloride (Iv Sodium Chloride 0.45%) 1,000 ml @ 100 mls/hr Q10H IV Last administered on 07/29/16 21:59; Start 07/29/16 at 22:00; Stop 07/30/16 at 09:41; Status DC Cefazolin Sodium/ Dextrose (Ancef 2gm Premix) 2 gm STK-MED ONCE IV ; Start at 17:35; Stop 07/30/16 at 08:53; Status DC Pantoprazole Sodium 40 mg 40 mg [id number] IVP Last administered on 08/01/16 17:18 ; Start 07/30/16 at 18:00; Stop 08/01/16 at 20:26; Status DC Sodium Chloride 1,000 ml @ 60 mls/hr [id number] IV Last administered on 07/30/16 09:47; Start 07/30/16 at 09:45; Stop 07/30/16 at 12:47; Status DC Cefazolin Sodium/ Sodium Chloride (Ancef/Iv Sodium Chloride 0.9% 500ml Bag) 500 ml @ 500 mls/hr 1X PERIOP ONCE IRR Last administered on 07/31/16 13:47; Start 07/31/16 at 06:00; Stop 07/31/16 at 06:59; Status DC Insulin Detemir (Levemir) 15 units [id number] SQ Last administered on 07/30/16 12: 57; Start 07/30/16 at 13:00; Stop 08/01/16 at 08:36; Status DC Insulin Aspart 12 units 12 units 1X ONCE SQ ; Start 07/30/16 at 12:45; Stop 07/30 at 12:47; Status DC Amino Acids/ Electrolytes/ Dextrose (Clinimix E 4.25%-5% Solution) 1,000 ml @ 80 mls/hr [id number] IV Last administered on 08/02/16 17:50; Start 07/30/16 at 13: 00; Stop 08/03/16 at 03:41; Status DC Ondansetron HCl (Zofran) 4 mg PRN Q6HRS PRN IV Nausea; Start 07/31/16 at 07:00; Stop 08/01/16 at 06:59; Status DC Fentanyl Citrate (Fentanyl 2ml Vial) 25 mcg PRN Q5MIN PRN IV MILD PAIN; Start 07/31/16 at 07:00; Stop 08/01/16 at 06:59; Status DC Fentanyl Citrate (Fentanyl 2ml Vial) 50 mcg PRN Q5MIN PRN IV MODERATE PAIN; Start 07/31/16 at 07:00; Stop 08/01/16 at 06:59; Status DC Morphine Sulfate 1 mg 1 mg PRN Q10MIN PRN IV SEVERE PAIN; Start 07/31/16 at 07: 00; Stop 08/01/16 at 06:59; Status DC Lactated Ringer's (Iv Lactated Ringers) 1,000 ml @ 30 mls/hr Q24H IV Last administered on 07/31/16 15:53; Start 07/31/16 at 07:00; Stop 07/31/16 at 18:59; Status DC Lidocaine HCl 2 ml 1X PRN PRN ID IV START; Start 07/31/16 at 07:00; Stop at 06:59; Status DC Hydromorphone HCl (Dilaudid) 0.5 mg PRN Q10MIN PRN IV SEVERE PAIN, Second choice; Start 07/31/16 at 07:00; Stop 08/01/16 at 06:59; Status DC Prochlorperazine Edisylate (Compazine) 5 mg PACU PRN PRN IV NAUSEA; Start at 07:00; Stop 08/01/16 at 06:59; Status DC Insulin Detemir (Levemir) 10 units QHS SQ Last administered on 07/31/16 21:49; Start 07/31/16 at 21:00; Stop 08/01/16 at 08:36; Status DC Enalaprilat (Vasotec) 1.25 mg Q6HRS IV ; Start 07/31/16 at 12:00; Stop 07/31/16 at 12:00; Status DC Enalaprilat (Vasotec) 0.625 mg Q6HRS IV Last administered on 08/04/16 05:35; Start 07/31/16 at 12:00; Stop 08/04/16 at 14:42; Status DC Fentanyl Citrate (Fentanyl 2ml Vial) 100 mcg STK-MED ONCE .ROUTE ; Start at 12:49; Stop 07/31/16 at 12:50; Status DC Rocuronium [place] (Zemuron) 50 mg STK-MED ONCE .ROUTE ; Start 07/31/16 at 12:49 ; Stop 07/31/16 at 12:50; Status DC Lidocaine HCl 100 mg 100 mg STK-MED ONCE .ROUTE ; Start 07/31/16 at 13:17; Stop 07/31/16 at 13:18; Status DC Propofol (Diprivan) 20 ml @ As Directed STK-MED ONCE IV ; Start 07/31/16 at 13:17 ; Stop 07/31/16 at 13:18; Status DC Succinylcholine Chloride (Anectine) 200 mg STK-MED ONCE .ROUTE ; Start 07/31/16 at 13:30; Stop 07/31/16 at 13:31; Status DC Dexamethasone Sodium Phosphate (Decadron) 20 mg STK-MED ONCE .ROUTE ; Start 07/31 at 13:42; Stop 07/31/16 at 13:43; Status DC Ondansetron HCl (Zofran) 4 mg STK-MED ONCE .ROUTE ; Start 07/31/16 at 13:42; Stop 07/31/16 at 13:43; Status DC Phenylephrine HCl 1 mg STK-MED ONCE IV ; Start 07/31/16 at 13:47; Stop 07/31/16 at 13:48; Status DC Fentanyl Citrate (Fentanyl 2ml Vial) 100 mcg STK-MED ONCE .ROUTE ; Start at 14:26; Stop 07/31/16 at 14:27; Status DC Sevoflurane (Ultane) 60 ml STK-MED ONCE IH ; Start 07/31/16 at 15:13; Stop at 15:14; Status DC Insulin Aspart (Novolog Vial) 3 unit 1X ONCE SQ ; Start 07/31/16 at 15:45; Stop 07/31/16 at 15:45; Status DC Insulin Aspart (Novolog) 3 units 1X ONCE SQ ; Start 07/31/16 at 15:45; Stop 07/31 at 15:46; Status Cancel Insulin Aspart (Novolog Vial) 100 unit STK-MED ONCE SQ ; Start 07/31/16 at 15:41 ; Stop 07/31/16 at 15:42; Status DC Insulin Aspart (Novolog Vial) 3 unit 1X ONCE SQ ; Start 07/31/16 at 16:00; Stop 07/31/16 at 16:01; Status Cancel Insulin Aspart 3 unit 3 unit 1X ONCE SQ Last administered on 07/31/16 15:57; Start 07/31/16 at 16:00; Stop 07/31/16 at 16:01; Status DC Ceftriaxone Sodium/Sodium Chloride (Rocephin/Iv Sodium Chloride 0.9% 50ml) 50 ml @ 100 mls/hr Q24H IV Last administered on 08/08/16 14:46; Start 08/01/16 at 14:00; Stop 08/08/16 at 15:27; Status DC Insulin Aspart (Novolog) 0-9 UNITS Q6HRS SQ Last administered on 08/03/16 18: 14; Start 08/01/16 at 12:00; Stop 08/04/16 at 12:15; Status DC Insulin Detemir (Levemir) 30 units QHS SQ Last administered on 08/10/16 20:46 ; Start 08/01/16 at 21:00; Stop 08/11/16 at 08:40; Status DC Pantoprazole Sodium 40 mg 40 mg BID IVP Last administered on 08/10/16 20:41; Start 08/01/16 at 21:00; Stop 08/11/16 at 08:40; Status DC Amino Acids/ Electrolytes 1,000 ml @ 80 mls/hr [id number] IV Last administered on 08/03/16 05:09; Start 08/03/16 at 03:41; Stop 08/03/16 at 17:24; Status DC Amino Acids/ Electrolytes (Clinimix E 2.75%-5% Solution) 2,000 ml @ 80 mls/hr Q24H IV Last administered on 08/09/16 11:42; Start 08/03/16 at 17:24; Stop at 16:22; Status DC Insulin Aspart (Novolog) 0-9 UNITS TIDWMEALS SQ Last administered on 08/10/16 17:03; Start 08/04/16 at 12:11 Aspirin (Ecotrin) 81 mg [id number] PO Last administered on 08/05/16 09:14; Start 08/05/16 at 08:00; Stop 08/05/16 at 13:50; Status DC Carvedilol (Coreg) 6.25 mg BIDWMEALS PO Last administered on 08/05/16 09:15; Start 08/04/16 at 17:00; Stop 08/05/16 at 13:50; Status DC Lisinopril (Prinivil) 5 mg HS PO Last administered on 08/04/16 21:06; Start at 21:00; Stop 08/05/16 at 13:50; Status DC Cefpodoxime Proxetil (Vantin) 200 mg BID PO ; Start 08/05/16 at 14:00; Stop at 14:08; Status DC Metronidazole (Flagyl) 500 mg BID PO ; Start 08/05/16 at 21:00; Status Cancel Furosemide (Lasix) 20 mg 1X ONCE IVP Last administered on 08/05/16 13:54; Start 08/05/16 at 13:15; Stop 08/05/16 at 13:16; Status DC Aspirin (Aspirin) 300 mg DAILY [place] Last administered on 08/12/16 09:44; Start 08/06/16 at 09:00 Metoprolol Tartrate (Lopressor) 5 mg Q6HRS IVP Last administered on 08/11/16 00:13; Start 08/05/16 at 18:00; Stop 08/11/16 at 08:40; Status DC Enalaprilat (Vasotec) 0.625 mg Q6H IV Last administered on 08/11/16 04:29; Start 08/05/16 at 16:00; Stop 08/11/16 at 08:40; Status DC Ondansetron HCl 4 mg 4 mg PRN Q6HRS PRN IV NAUSEA/VOMITING Last administered on 08/06/16 10:16; Start 08/05/16 at 17:15 Metronidazole (FLAGYL 500Mmg PREMIX) 100 ml @ 100 mls/hr Q12HR IV Last administered on 08/08/16 08:18; Start 08/05/16 at 22:00; Stop 08/08/16 at 15:27 ; Status DC Insulin Detemir (Levemir) 10 units QHS SQ Last administered on 08/11/16 21:29 ; Start 08/11/16 at 21:00 Lisinopril (Prinivil) 20 mg DAILY PO Last administered on 08/12/16 09:44; Start 08/11/16 at 09:00 Pantoprazole Sodium (Protonix) 40 mg BIDAC PO Last administered on 08/12/16 06 :43; Start 08/11/16 at 09:00 Active Scripts Active Reported Hydrocodone-Apap 5-325 (Hydrocodone Bit/Acetaminophen) 1 Each Tablet 1 Tab PO Q4HRS PRN Vitals/I & O Vital Sign - Last 24 Hours 08/11/16 08/11/16 08/11/16 08/11/16 11:15 15:18 17:57 19:46 Temp 98.2 97.7 98.2 97.7 Pulse 64 60 76 Resp 16 18 16 B/P 126/50 135/54 135/56 Pulse Ox 95 95 96 O2 Delivery Room Air Room Air Room Air 08/11/16 08/12/16 08/12/16 08/12/16 22:52 03:52 07:00 09:04 Temp 98.6 98.4 97.6 97.6 98.6 98.4 97.6 97.6 Pulse 86 66 78 78 Resp 14 16 18 18 B/P 122/55 142/63 138/63 138/63 Pulse Ox 94 94 95 95 O2 Delivery Room Air Room Air Nasal Cannula Nasal Cannula O2 Flow Rate 2.0 2.0 08/12/16 08/12/16 09:44 10:27 Temp 98.1 98.1 Pulse 78 77 Resp 18 B/P 138/63 119/57 Pulse Ox 93 O2 Delivery Room Air Intake and Output 08/11/16 08/11/16 08/12/16 15:00 23:00 07:00 Intake Total 240 ml Balance 240 ml Nutrition Consultation Dietary Evaluation: Recommendations by RD: Increase Calorie Intake Comments: -Rec. continue the PPN @ 80 ml/hr until pt is meeting > 50% of nutrition needs via PO intake -Continue the Magic cup protein supplement TID (290 calories/9 grams protein per serving) -Continue the boost pudding protein supplement TID (240 calories/7 grams protein per serving) -Nursing indicates dobhoff was not placed Expected Outcomes/Goals: meet 75% estimated nutrition needs Malnutrition Findings: Food and Nutrition Intake (Mod: <75% est energy req 7days Reduced [employer] Strength: N/A Weight Status: Overweight Fluid Accumulation (N/A): N/A CHELSEA MCCALL APRN Aug 12, 2016 11:11
[2016-08-12 11:21] LABS: FOLATE > 20.00 ng/ml (3.2-20.0); VITAMIN-B12 592 pg/mL (247-911)
[2016-08-12 15:09] VITALS: BP 120/51
[2016-08-12] MEDS ORDERED: ASPI300S RC (15:15)
[2016-08-12] MEDS ORDERED: INSU100V13 SQ (15:19)
[2016-08-12] MEDS ORDERED: LISI-334 PO (15:20)
[2016-08-12] MEDS ORDERED: PANT40TA5 PO (15:22)
--- NOTE | 2016-08-12 15:22 | PDOC3 ---
Discharge Summary Visit Information Date of Admission: Jul 28, 2016 Date of Discharge: Aug 12, 2016 Admitting Diagnosis: encephalopathy Final Diagnosis A/P s/p LEFt AKA () for Severe PVD - Severe calcific atherosclerosis and thrombosis of anterior tibial and popliteal artery. Acute metabolic encephalopathy resolved. Dm 1 with Hyperglycemia. NSTEMI, med management now Vasomotor nephropathy, Diabetes with severe chronic atherosclerosis, multilevel. Cardiomyopathy Chronic systolic HF PAD Leucocytosis possible due to splenic infarcts, old Problems Medical Problems: (1) Altered mental status Status: Acute (2) Dehydration Status: Acute (3) NSTEMI (non-ST elevated myocardial infarction) Status: Acute Brief Hospital Course Allergies Allergies Coded Allergies Type Severity Reaction Last Updated Verified No Known Drug Allergies 07/29/16 No Vital Signs Vital Signs Date Time Temp Pulse Resp B/P Pulse Ox O2 Delivery O2 Flow Rate FiO2 08/12/16 10:27 98.1 77 18 119/57 93 Room Air 98.1 08/12/16 07:00 95.0 Lab Results Laboratory Tests Test 08/10/16 16:55 08/10/16 20:33 08/11/16 07:19 08/11/16 11:11 Glucose (Fingerstick) 196mg/dL (70-99) 240mg/dL (70-99) 68mg/dL (70-99) 78mg/dL (70-99) Test 08/11/16 16:36 08/11/16 18:03 08/11/16 20:44 08/12/16 04:30 Glucose (Fingerstick) 62mg/dL (70-99) 76mg/dL (70-99) 128mg/dL (70-99) White Blood Count 11.6x10^3/uL (4.0-11.0) Red Blood Count 3.46x10^6/uL (4.30-5.70) Hemoglobin 9.5g/dL (13.0-17.5) Hematocrit 30.4% (39.0-53.0) Mean Corpuscular Volume 88fL (79-100) Mean Corpuscular Hemoglobin 28pg (25-35) Mean Corpuscular Hemoglobin Concent 31g/dL (31-37) Red Cell Distribution Width 15.8% (11.5-14.5) Platelet Count 351x10^3/uL (140-400) Neutrophils (%) (Auto) 76% (31-73) Lymphocytes (%) (Auto) 11% (24-48) Monocytes (%) (Auto) 11% (0-9) Eosinophils (%) (Auto) 1% (0-3) Basophils (%) (Auto) 1% (0-3) Neutrophils # (Auto) 8.8x10^3uL (1.8-7.7) Lymphocytes # (Auto) 1.3x10^3/uL (1.0-4.8) Monocytes # (Auto) 1.3x10^3/uL (0.0-1.1) Eosinophils # (Auto) 0.1x10^3/uL (0.0-0.7) Basophils # (Auto) 0.1x10^3/uL (0.0-0.2) Sodium Level 135mmol/L (136-145) Potassium Level 4.0mmol/L (3.5-5.1) Chloride Level 100mmol/L (98-107) Carbon Dioxide Level 29mmol/L (21-32) Anion Gap 6 (6-14) Blood Urea Nitrogen 16mg/dL (8-26) Creatinine 0.8mg/dL (0.7-1.3) Estimated GFR (Cockcroft-Gault) 96.4 Glucose Level 133mg/dL (70-99) Calcium Level 8.6mg/dL (8.5-10.1) Iron Level 32ug/dL (65-175) Total Iron Binding Capacity 272ug/dL (250-450) Iron Saturation 12% (15-34) Ferritin 1486ng/mL (26-388) Vitamin B12 Level 592pg/mL (247-911) Serum Folate > 20.00ng/ml (3.2-20.0) Test 08/12/16 07:31 08/12/16 11:58 Glucose (Fingerstick) 127mg/dL (70-99) 178mg/dL (70-99) Laboratory Tests Test 08/11/16 16:36 08/11/16 18:03 08/11/16 20:44 08/12/16 04:30 Glucose (Fingerstick) 62mg/dL (70-99) 76mg/dL (70-99) 128mg/dL (70-99) White Blood Count 11.6x10^3/uL (4.0-11.0) Red Blood Count 3.46x10^6/uL (4.30-5.70) Hemoglobin 9.5g/dL (13.0-17.5) Hematocrit 30.4% (39.0-53.0) Mean Corpuscular Volume 88fL (79-100) Mean Corpuscular Hemoglobin 28pg (25-35) Mean Corpuscular Hemoglobin Concent 31g/dL (31-37) Red Cell Distribution Width 15.8% (11.5-14.5) Platelet Count 351x10^3/uL (140-400) Neutrophils (%) (Auto) 76% (31-73) Lymphocytes (%) (Auto) 11% (24-48) Monocytes (%) (Auto) 11% (0-9) Eosinophils (%) (Auto) 1% (0-3) Basophils (%) (Auto) 1% (0-3) Neutrophils # (Auto) 8.8x10^3uL (1.8-7.7) Lymphocytes # (Auto) 1.3x10^3/uL (1.0-4.8) Monocytes # (Auto) 1.3x10^3/uL (0.0-1.1) Eosinophils # (Auto) 0.1x10^3/uL (0.0-0.7) Basophils # (Auto) 0.1x10^3/uL (0.0-0.2) Sodium Level 135mmol/L (136-145) Potassium Level 4.0mmol/L (3.5-5.1) Chloride Level 100mmol/L (98-107) Carbon Dioxide Level 29mmol/L (21-32) Anion Gap 6 (6-14) Blood Urea Nitrogen 16mg/dL (8-26) Creatinine 0.8mg/dL (0.7-1.3) Estimated GFR (Cockcroft-Gault) 96.4 Glucose Level 133mg/dL (70-99) Calcium Level 8.6mg/dL (8.5-10.1) Iron Level 32ug/dL (65-175) Total Iron Binding Capacity 272ug/dL (250-450) Iron Saturation 12% (15-34) Ferritin 1486ng/mL (26-388) Vitamin B12 Level 592pg/mL (247-911) Serum Folate > 20.00ng/ml (3.2-20.0) Test 08/12/16 07:31 08/12/16 11:58 Glucose (Fingerstick) 127mg/dL (70-99) 178mg/dL (70-99) Brief Hospital Course Mr. Van is a 66 old male admitted for confusion, thought to be overuse of narcotics at first with encephalopathy, was found to have an NSTEMI, and also had significant peripheral vascular disease, status post left [id number] amputation on 07/31 by vascular . White count elvated, abx started, remained confused for 2 weeks, a little improved for DC Encephalopathy improved, not very animated increase oral intake as able AC and HS for hyperglycemia , levemir to 10u qhs, Follow vascular recommendations. SNU placement, . Discharge Information Condition at Discharge: Improved Disposition/Orders: D/C to Another Facility Scheduled Aspirin (Aspirin) 300 MG RC DAILY (Reported) Scheduled PRN Hydrocodone Bit/Acetaminophen (Hydrocodone-Apap 5-325 ) 1 TAB PO Q4HRS PRN PRN PAIN (Reported) Patient Instructions Patient Instructions marlon e> 30 min' SRAVAN ROMANO MD Aug 12, 2016 15:22
[2016-08-12] MEDS ORDERED: ONDA4TAB7 PO (15:23)
--- NOTE | 2016-08-12 15:32 | PDOC2 ---
PALLIATIVE CARE Palliative Care Note Palliative Care Patient seen 1230. Resting in bed. Denies pain. Patient is unable to verbalize his medical condition. Responds slowly to questions. Not consistent with answers to resuscitation questions. No family member available to assist in making decisions. May need to pursue guardianship for patient Palliative Care will sign off. ILIANA JAVIER Aug 12, 2016 15:32
== END 2016-08-12 18:20 | DRG 239 ==
LOC: ER 18:59 → 1 WEST ICU 21:59 → CVICU 07-30 16:20 → 2 SOUTH 08-11 12:50
PROVIDERS: ADMIT Internal Medicine; ATTEND Internal Medicine
PROC: 04UL0KZ Supplement Left Femoral Artery with Nonautologous Tissue Substitute, Open Approach (ICD-10-PCS; 2016-07-29)
PROC: 041L0JN Bypass Left Femoral Artery to Posterior Tibial Artery with Synthetic Substitute, Open Approach (ICD-10-PCS; 2016-07-29)
PROC: 04CL0ZZ Extirpation of Matter from Left Femoral Artery, Open Approach (ICD-10-PCS; principal; 2016-07-29 14:00)
PROC: 0Y6D0Z3 Detachment at Left Upper Leg, Low, Open Approach (ICD-10-PCS; 2016-07-31)
DX: I82.432 Acute embolism and thrombosis of left popliteal vein (principal); G93.41 Metabolic encephalopathy; I21.4 Non-ST elevation (NSTEMI) myocardial infarction; K72.00 Acute and subacute hepatic failure without coma; N17.0 Acute kidney failure with tubular necrosis; E46 Unspecified protein-calorie malnutrition; I50.22 Chronic systolic (congestive) heart failure; I13.0 Hypertensive heart and chronic kidney disease with heart failure and stage 1 through stage 4 chronic kidney disease, or unspecified chronic kidney disease; I74.3 Embolism and thrombosis of arteries of the lower extremities; I99.8 Other disorder of circulatory system; I25.10 Atherosclerotic heart disease of native coronary artery without angina pectoris; E78.00 Pure hypercholesterolemia, unspecified; N18.3 Chronic kidney disease, stage 3 (moderate); E10.22 Type 1 diabetes mellitus with diabetic chronic kidney disease; Z79.4 Long term (current) use of insulin; E10.51 Type 1 diabetes mellitus with diabetic peripheral angiopathy without gangrene; E10.65 Type 1 diabetes mellitus with hyperglycemia; N28.9 Disorder of kidney and ureter, unspecified; D72.829 Elevated white blood cell count, unspecified; M19.90 Unspecified osteoarthritis, unspecified site; E78.5 Hyperlipidemia, unspecified; E86.0 Dehydration; F10.10 Alcohol abuse, uncomplicated; I25.5 Ischemic cardiomyopathy; I70.0 Atherosclerosis of aorta; I70.202 Unspecified atherosclerosis of native arteries of extremities, left leg; R09.02 Hypoxemia; Z79.82 Long term (current) use of aspirin; Z82.49 Family history of ischemic heart disease and other diseases of the circulatory system; Z82.5 Family history of asthma and other chronic lower respiratory diseases; Z83.3 Family history of diabetes mellitus; Z95.1 Presence of aortocoronary bypass graft
CPT/HCPCS: 36415; 70450; 71010; 74000; 74176; 76700; 80048; 80053; 80061; 81001; 82140; 82248; 82553; 82607; 82728; 82746; 82947; 83036; 83540; 83550; 83605; 83690; 83735; 83880; 84443; 84484; 85007; 85027; 85520; 85610; 87040; 87641; 88307; 88311; 93005; 93306; 93925; 96361; 96365; 96375; C1757; C9113; G0481; J0330; J0690; J0696; J1100; J1815; J2250; J2270; J2310; J2370; J2405; J2440; J2704; J2710; J3010; J3490; J7030; J7040; J7042; J7120; Q9967; 92526; 92610; 97110; 97530; 97535; 99291-25

== ENCOUNTER 2019-02-27 23:45 | Inpatient (IN) | payer OTHER ==
[~2019-02-27] VITALS: Ht 175.3 cm; Wt 87.3 kg
[~2019-02-27 23:45] MED LIST: ASPI300S RC; HYDR-2761 PO; INSU100V13 SQ; LISI-334 PO; ONDA4TAB7 PO; PANT40TA77 PO
--- NOTE | 2019-02-28 00:07 | PHYS DOC ---
Past Medical History Past Medical History: CAD, CVA, Dementia, Diabetes-Type I, High Cholesterol, Heart Disease, Hypertension, Renal Disease Past Medical History Limited due to dementia Past Surgical History: Coronary Bypass Surgery Additional Past Surgical Histo: left AKA Past Surgical History Limited due to dementia Alcohol Use: None Drug Use: None Social History Limited due to dementia Adult General Chief Complaint Chief Complaint: WEAKNESS/GENERALIZED HPI HPI 68-year-old male with past medical history of CVA with some right-sided deficit and history of dementia presents via EMS from [facility] with report of increased weakness to right side. ECF nurse also concerned for some increased confusion and increased slurred speech. No known history of trauma. Patient denies fever or chills. History of present illness limited due to patient's current mentation and history of dementia. Review of Systems Review of Systems Constitutional: Denies fever or chills Respiratory: Denies cough or shortness of breath Cardiovascular: Denies chest pain or palpitations GI: Denies nausea or vomiting Integument: Denies rash or skin lesions Neurologic: Reports slurred speech and increased right sided weakness from baseline Review of systems limited due to patient's current mentation and history of dementia. Current Medications Current Medications Allergies Allergies Allergies Coded Allergies Type Severity Reaction Last Updated Verified No Known Drug Allergies 07/29/16 No Physical Exam Physical Exam Constitutional: Well developed, well nourished, no acute distress, non-toxic appearance HENT: Normocephalic, atraumatic, oropharynx tacky Eyes: PERRL, EOMI, conjunctiva normal, no discharge, no nystagmus noted Neck: Normal range of motion, no tenderness, supple, no meningeal signs Cardiovascular: Heart rate normal, regular rhythm Lungs & Thorax: Bilateral breath sounds clear to auscultation, no wheezing Abdomen: Soft, no tenderness Skin: Warm, dry, no erythema, no rash Extremities: No tenderness, ROM intact, left AKA noted Neurologic: Alert and oriented X name only Current Patient Data Vital Signs Vital Signs Date Time Temp Pulse Resp B/P (MAP) Pulse Ox O2 Delivery O2 Flow Rate FiO2 02/28/19 01:00 74 26 93 02/27/19 23:55 97.7 141/63 (89) Room Air 97.7 Lab Values Laboratory Tests Test 02/28/19 00:15 White Blood Count 9.7 x10^3/uL (4.0-11.0) Red Blood Count 4.42 x10^6/uL (4.30-5.70) Hemoglobin 13.4 g/dL (13.0-17.5) Hematocrit 39.7 % (39.0-53.0) Mean Corpuscular Volume 90 fL (79-100) Mean Corpuscular Hemoglobin 30 pg (25-35) Mean Corpuscular Hemoglobin Concent 34 g/dL (31-37) Red Cell Distribution Width 13.7 % (11.5-14.5) Platelet Count 307 x10^3/uL (140-400) Neutrophils (%) (Auto) 52 % (31-73) Lymphocytes (%) (Auto) 33 % (24-48) Monocytes (%) (Auto) 10 % (0-9) H Eosinophils (%) (Auto) 3 % (0-3) Basophils (%) (Auto) 1 % (0-3) Neutrophils # (Auto) 5.1 x10^3/uL (1.8-7.7) Lymphocytes # (Auto) 3.2 x10^3/uL (1.0-4.8) Monocytes # (Auto) 1.0 x10^3/uL (0.0-1.1) Eosinophils # (Auto) 0.3 x10^3/uL (0.0-0.7) Basophils # (Auto) 0.1 x10^3/uL (0.0-0.2) Prothrombin Time 13.1 SEC (11.7-14.0) Prothrombin Time INR 1.0 (0.8-1.1) Activated Partial Thromboplast Time 28 SEC (24-38) Sodium Level 142 mmol/L (136-145) Potassium Level 4.3 mmol/L (3.5-5.1) Chloride Level 105 mmol/L (98-107) Carbon Dioxide Level 26 mmol/L (21-32) Anion Gap 11 (6-14) Blood Urea Nitrogen 18 mg/dL (8-26) Creatinine 1.3 mg/dL (0.7-1.3) Estimated GFR (Cockcroft-Gault) 54.7 BUN/Creatinine Ratio 14 (6-20) Glucose Level 235 mg/dL (70-99) H Lactic Acid Level 1.7 mmol/L (0.4-2.0) Calcium Level 8.9 mg/dL (8.5-10.1) Magnesium Level 2.0 mg/dL (1.8-2.4) Total Bilirubin 0.2 mg/dL (0.2-1.0) Aspartate Amino Transferase (AST) 18 U/L (15-37) Alanine Aminotransferase (ALT) 16 U/L (16-63) Alkaline Phosphatase 69 U/L (46-116) Ammonia 21 mcmol/L (11-34) Creatine Kinase 180 U/L (39-308) Creatine Kinase MB (Mass) 2.1 ng/mL (0.0-3.6) Creatine Kinase MB Relative Index 1.2 % (0-4) Troponin I Quantitative < 0.017 ng/mL (0.000-0.055) Total Protein 7.4 g/dL (6.4-8.2) Albumin 2.9 g/dL (3.4-5.0) L Albumin/Globulin Ratio 0.6 (1.0-1.7) L Valproic Acid Level 14 mcg/mL (50-100) L Valproic Acid Last Dose Date Valproic Acid Last Dose Time Laboratory Tests 02/28/19 00:15 Laboratory Tests 02/28/19 00:15 EKG EKG @2350 NSR at 75bpm, NO ST elevation, Q wave II-III and aVF, Radiology/Procedures Radiology/Procedures CXR AP: (preliminary interpretation by ED physician): Low lung volumes, No acute process PROCEDURE: CT HEAD WO CONTRAST STUDY: CT head without contrast INDICATION: Right-sided weakness. COMPARISON: 07/28/2016 TECHNIQUE: Axial CT imaging through the head without the use of intravenous contrast. Sagittal and coronal reformats were obtained. One or more of the following individualized dose reduction techniques were utilized for this examination: 1. Automated exposure control 2. Adjustment of the mA and/or kV according to patient size 3. Use of iterative reconstruction technique. FINDINGS: Chronic cortical infarct involving the left paramedian frontal lobe anteriorly such as on image 20 series 2. Not present on the 2017 comparison but also appearing chronic chronic is a focal area of low attenuation involving the medial aspect of the right cerebellar hemisphere, image 11 series 2. Rounded area of low attenuation in the left thalamocapsular region, image 16 series 2, is new from the comparison as well. No discrete area of hughes-white matter differentiation loss seen elsewhere. Intracranial atherosclerotic calcifications. Mild parenchymal volume loss. Background patchy areas of subcortical white matter low-attenuation which is nonspecific but likely represents the sequela of chronic microvascular ischemic change. No midline shift. No hydrocephalus. No acute intracranial hemorrhage. No layering fluid seen within the visualized paranasal sinuses. IMPRESSION: 1. Rounded focus of low attenuation at the left thalamocapsular junction which was not present on the 07/28/2016 comparison. This is most compatible with an age indeterminant party plan sales consultant infarct that could be accurately aged by MRI as deemed clinically necessary. 2. Areas of low attenuation involving the medial right cerebellar hemisphere as well as the left paramedian frontal lobe. The abnormality involving the left frontal lobe does appear to have been present on the 2017 comparison. The cerebellar hemisphere finding is new but exhibits an appearance most suggestive of encephalomalacia from a remote infarct. Again, this could be more accurately aged by MRI. 3. No acute intracranial hemorrhage. No mass effect, midline shift or hydrocephalus. 4. White matter findings which are nonspecific but can be seen in the setting of chronic microvascular ischemic change. 5. Mild parenchymal volume loss. Intracranial atherosclerotic calcifications. Electronically signed by: JUSTIN GOLDSTEIN MD (02/28/2019 2:15 AM) [facility] Course & Med Decision Making Course & Med Decision Making Pertinent Labs and Imaging studies reviewed. (See chart for details) Patient with prior CVA with partial right-sided deficit presents with increased right-sided weakness and slurred speech. NIHSS 5. CT head with chronic vs subacute infarct. ASA given. CXR stable. EKG stable. Labs obtained and posted to chart. Patient requiring admission for further evaluation and treatment. Discussed with Dr. Orlando (hospitalist) who is in agreement with admission. Consult for neurology placed. Discussed findings and plan with patient, who acknowledges understanding and agreement. Dragon Disclaimer Dragon Disclaimer This electronic medical record was generated, in whole or in part, using a voice recognition dictation system. Departure Departure Impression: Primary Impression: Right sided weakness Disposition: ADMITTED INPATIENT Admitting Physician: LETICIA Mcdonald) Condition: GUARDED Referrals: UNKNOWN PCP NAME (PCP) NIHSS Stroke Scale NIH Stroke Scale: NIH Stroke Scale Response (Comments) Value Level of Consciousness: 0 Alert/Responsive 0 LOC Questions: 1 Answers one correctly 1 LOC Commands: 0 Performs both tasks 0 Best Gaze: 0 Normal 0 Visual: 0 No visual loss 0 Facial Palsy: 0 Normal, symmetrical 0 Motor - Left Arm 0 No drift 0 Motor - Right Arm 1 Drifts but can hold 1 Motor - Left Leg 5 Amputation 0 Motor: Right Leg 2 Some effort 2 Limb Ataxia: 0 Absent 0 Sensory: 0 No loss 0 Best Language: 0 Normal 0 Dysathria: 1 Mild to moderate 1 Extinction and Inattention: 0 Normal 0 Total 5 SCALES,JETHRO Wong DO Feb 28, 2019 00:07
[2019-02-28 00:35] LABS: BASO # 0.1 x10^3/uL (0.0-0.2); BASO % 1 % (0-3); EOS # 0.3 x10^3/uL (0.0-0.7); EOS % 3 % (0-3); HEMATOCRIT 39.7 % (39.0-53.0); HEMOGLOBIN 13.4 g/dL (13.0-17.5); LYMPH # 3.2 x10^3/uL (1.0-4.8); LYMPH % 33 % (24-48); MEAN CORPUSCULAR HEMOGLOBIN 30 pg (25-35); MEAN CORPUSCULAR HGB CONC 34 g/dL (31-37); MEAN CORPUSCULAR VOLUME 90 fL (79-100); MONO % 10 % (0-9); NEUT # 5.1 x10^3/uL (1.8-7.7); NEUT % 52 % (31-73); PLATELET COUNT 307 x10^3/uL (140-400); RED BLOOD COUNT 4.42 x10^6/uL (4.30-5.70); RED CELL DISTRIBUTION WIDTH 13.7 % (11.5-14.5); WHITE BLOOD COUNT 9.7 x10^3/uL (4.0-11.0)
[2019-02-28 00:46] LABS: CALCIUM 8.9 mg/dL (8.5-10.1); CREATININE 1.3 mg/dL (0.7-1.3); GFR 54.7; POTASSIUM 4.3 mmol/L (3.5-5.1); PROTHROMBIN TIME PATIENT 13.1 SEC (11.7-14.0)
[2019-02-28 00:52] LABS: ALBUMIN 2.9 g/dL (3.4-5.0); ALBUMIN/GLOBULIN RATIO 0.6 (1.0-1.7); TOTAL BILIRUBIN 0.2 mg/dL (0.2-1.0); TOTAL PROTEIN 7.4 g/dL (6.4-8.2)
[2019-02-28 00:56] LABS: VAL ACID 14 mcg/mL (50-100)
[2019-02-28] MEDS ORDERED: DEXTROSE 50% 25 GM / 50ML DISP.SYRIN. IV PRN ×3 (01:15→09:30)
[2019-02-28] MEDS ORDERED: ONDANSETRON PF 4 MG/2 ML VIAL. IV PRN (01:15)
[2019-02-28] MEDS ORDERED: ASPIRIN RECTAL 300 MG SUPP. PR ONE (01:30)
[2019-02-28 02:17] LABS: BILIRUBIN,URINE NEGATIVE (NEG); CLARITY,URINE CLEAR; COLOR,URINE YELLOW; NITRITE,URINE NEGATIVE (NEG); PH,URINE 5.5; PROTEIN,URINE NEGATIVE (NEG-TRACE)
--- NOTE | 2019-02-28 02:18 | RAD ---
STUDY: CT head without contrast INDICATION: Right-sided weakness. COMPARISON: 07/28/2016 TECHNIQUE: Axial CT imaging through the head without the use of intravenous contrast. Sagittal and coronal reformats were obtained. One or more of the following individualized dose reduction techniques were utilized for this examination: 1. Automated exposure control 2. Adjustment of the mA and/or kV according to patient size 3. Use of iterative reconstruction technique. FINDINGS: Chronic cortical infarct involving the left paramedian frontal lobe anteriorly such as on image 20 series 2. Not present on the 2017 comparison but also appearing chronic chronic is a focal area of low attenuation involving the medial aspect of the right cerebellar hemisphere, image 11 series 2. Rounded area of low attenuation in the left thalamocapsular region, image 16 series 2, is new from the comparison as well. No discrete area of hughes-white matter differentiation loss seen elsewhere. Intracranial atherosclerotic calcifications. Mild parenchymal volume loss. Background patchy areas of subcortical white matter low-attenuation which is nonspecific but likely represents the sequela of chronic microvascular ischemic change. No midline shift. No hydrocephalus. No acute intracranial hemorrhage. No layering fluid seen within the visualized paranasal sinuses. IMPRESSION: 1. Rounded focus of low attenuation at the left thalamocapsular junction which was not present on the 07/28/2016 comparison. This is most compatible with an age indeterminant equine internship infarct that could be accurately aged by MRI as deemed clinically necessary. 2. Areas of low attenuation involving the medial right cerebellar hemisphere as well as the left paramedian frontal lobe. The abnormality involving the left frontal lobe does appear to have been present on the 2017 comparison. The cerebellar hemisphere finding is new but exhibits an appearance most suggestive of encephalomalacia from a remote infarct. Again, this could be more accurately aged by MRI. 3. No acute intracranial hemorrhage. No mass effect, midline shift or hydrocephalus. 4. White matter findings which are nonspecific but can be seen in the setting of chronic microvascular ischemic change. 5. Mild parenchymal volume loss. Intracranial atherosclerotic calcifications. Electronically signed by: JUSTIN GOLDSTEIN MD (02/28/2019 2:15 AM) [facility]
[2019-02-28 02:29] LABS: BACTERIA,URINE MANY /HPF (0-FEW); RBC,URINE 0 /HPF (0-2); WBC,URINE 20-40 /HPF (0-4)
[2019-02-28 02:30] LABS: SQUAMOUS EPITHELIAL CELL,UR OCC /LPF
[2019-02-28 03:03] VITALS: BP 94/49
[2019-02-28] MEDS ORDERED: DEXT38GE2 PO (03:36)
[2019-02-28] MEDS ORDERED: GUAI600T47 PO (03:36)
[2019-02-28] MEDS ORDERED: DIVA250T PO (03:36)
[2019-02-28] MEDS ORDERED: LOPE-101 PO (03:36)
[2019-02-28] MEDS ORDERED: ACET325T9 PO (03:36)
[2019-02-28] MEDS ORDERED: GLUC1KIT IM (03:36)
[2019-02-28] MEDS ORDERED: MIRT15TA3 PO (03:36)
[2019-02-28] MEDS ORDERED: OMEP20CA10 PO (03:36)
[2019-02-28] MEDS ORDERED: ASPI325T8 PO (03:36)
--- NOTE | 2019-02-28 06:33 | EKG ---
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
--- NOTE | 2019-02-28 06:50 | RAD ---
Study: PORTABLE CHEST 1V Indication: Weakness. Comparison: 08/04/2016 Findings: Status post median sternotomy. The cerclage wires are intact. Apparent prominence of the cardiomediastinal silhouette is likely in part related to low lung volumes. No large effusion. Bibasilar volume loss. No lobar consolidation. No pneumothorax. No free air seen under the diaphragm. Impression: 1. Prominence of the cardiomediastinal silhouette which may be in part related to low lung volumes. No radiographic manifestations of overt failure. 2. Bibasilar volume loss. Electronically signed by: JUSTIN GOLDSTEIN MD (02/28/2019 6:47 AM) [facility]
[2019-02-28 07:00] VITALS: BP 135/63
[2019-02-28] MEDS ORDERED: INSULIN LISPRO 300 UNITS/3 ML VIAL. SQ SCH (08:00)
--- NOTE | 2019-02-28 09:11 | PDOC1 ---
History and Physical Date of Admission Date of Admission DATE: 02/28/19 TIME: 09:10 History of Present Illness History of Present Illness MR. Van, is a 68-year-old male admit with new right sided weakness, I am unsure of timeline. pt aphasic and has hx of dementia and prior CVA. But sent for new right-sided deficit and lethargy. Also reported new confusion and increased slurred speech. History of present illness limited due to patient's current mentation and history of dementia. Past Medical History Cardiovascular: CAD, HTN, Hyperlipidemia CENTRAL NERVOUS SYSTEM: CVA, Dementia Hepatobiliary: No pertinent hx Psych: No pertinent hx Rheumatologic: No pertinent hx Infectious disease: No pertinent hx Renal/: Chronic renal insuff Endocrine: Diabetes Past Surgical History Past Surgical History: CABG Family History Family History: Diabetes, Hypertension Social History Smoke: Quit ALCOHOL: none Drugs: None Current Medications Current Medications Current Medications Aspirin (Aspirin Rectal Supp) 300 mg 1X ONCE [place] Last administered on 02/28/19at 01:30; Start 02/28/19 at 01:30; Stop 02/28/19 at 01:31; Status DC Ondansetron HCl (Zofran) 4 mg PRN Q8HRS PRN IV NAUSEA/VOMITING; Start 02/28/19 at 01:15; Stop 03/01/19 at 01:14 Insulin Human Lispro (HumaLOG) 0-5 UNITS TIDWMEALS SQ ; Start 02/28/19 at 08:00 Dextrose (Dextrose 50%-Water Syringe) 12.5 gm PRN Q15MIN PRN IV SEE COMMENTS; Start 02/28/19 at 01:15; Stop 02/28/19 at 05:38; Status DC Dextrose (Dextrose 50%-Water Syringe) 12.5 gm PRN Q15MIN PRN IV SEE COMMENTS; Start 02/28/19 at 05:30 Active Scripts Active Reported Tylenol (Acetaminophen) 325 Mg Tablet 2 Tab PO PRN Q8HRS PRN Omeprazole 20 Mg Capsule.dr 1 Cap PO DAILY Mucinex (Guaifenesin) 600 Mg Tablet.er 1 Tab PO PRN BID PRN Imodium A-D (Loperamide HCl) 2 Mg Capsule 2 Mg PO PRN Q6HRS PRN Mirtazapine 15 Mg Tablet 7.5 Mg PO QHS Glucose Gel (Dextrose) 38 Gm Gel..gram. 38 Gm PO PRN Q15MIN PRN Glucagon Emergency Kit (Glucagon,Human Recombinant) 1 Mg Kit 1 Mg IM PRN Depakote Er (Divalproex Sodium) 250 Mg Tab.er.24h 1 Tab PO QHS Aspirin 325 Mg Tablet 1 Tab PO DAILY Zofran (Ondansetron Hcl) 4 Mg Tablet 1 Tab PO Q8HRS PRN Lisinopril 20 Mg Tablet 1 Tab PO BID Levemir (Insulin Detemir) 100 Unit/1 Ml Vial 45 Unit SQ QHS Aspirin 300 Mg Supp.rect 300 Mg RC DAILY Hydrocodone-Apap 5-325 (Hydrocodone Bit/Acetaminophen) 1 Each Tablet 1 Tab PO Q4HRS PRN Allergies Allergies: Coded Allergies: No Known Drug Allergies (Unverified , 07/29/16) ROS Review of System unable, lethargic, hard to arouse, not talking Physical Exam General: Alert, No acute distress, Other (lethargic, hard to arouse, does follow commands, ) HEENT: Atraumatic, PERRLA, Mucous membr. moist/pink Lungs: Clear to auscultation, Normal air movement Heart: S1S2, RRR, no gallops Abdomen: Normal bowel sounds, Soft, No tenderness Rectal Exam: not examined Extremities: No clubbing, No cyanosis, No edema, Other (left AKA amputation) Skin: No breakdown, No significant lesion Neuro: Normal tone Psych/Mental Status: Other (lethargic and withdrawn) Vitals Vitals Vital Signs Date Time Temp Pulse Resp B/P (MAP) Pulse Ox O2 Delivery O2 Flow Rate FiO2 02/28/19 07:00 97.6 63 18 135/63 (87) 96 Room Air 97.6 Labs Labs Laboratory Tests Test 02/27/19 23:57 02/28/19 00:15 02/28/19 02:08 02/28/19 04:15 Glucose (Fingerstick) 221 mg/dL (70-99) White Blood Count 9.7 x10^3/uL (4.0-11.0) Red Blood Count 4.42 x10^6/uL (4.30-5.70) Hemoglobin 13.4 g/dL (13.0-17.5) Hematocrit 39.7 % (39.0-53.0) Mean Corpuscular Volume 90 fL (79-100) Mean Corpuscular Hemoglobin 30 pg (25-35) Mean Corpuscular Hemoglobin Concent 34 g/dL (31-37) Red Cell Distribution Width 13.7 % (11.5-14.5) Platelet Count 307 x10^3/uL (140-400) Neutrophils (%) (Auto) 52 % (31-73) Lymphocytes (%) (Auto) 33 % (24-48) Monocytes (%) (Auto) 10 % (0-9) Eosinophils (%) (Auto) 3 % (0-3) Basophils (%) (Auto) 1 % (0-3) Neutrophils # (Auto) 5.1 x10^3/uL (1.8-7.7) Lymphocytes # (Auto) 3.2 x10^3/uL (1.0-4.8) Monocytes # (Auto) 1.0 x10^3/uL (0.0-1.1) Eosinophils # (Auto) 0.3 x10^3/uL (0.0-0.7) Basophils # (Auto) 0.1 x10^3/uL (0.0-0.2) Prothrombin Time 13.1 SEC (11.7-14.0) Prothromb Time International Ratio 1.0 (0.8-1.1) Activated Partial Thromboplast Time 28 SEC (24-38) Sodium Level 142 mmol/L (136-145) Potassium Level 4.3 mmol/L (3.5-5.1) Chloride Level 105 mmol/L (98-107) Carbon Dioxide Level 26 mmol/L (21-32) Anion Gap 11 (6-14) Blood Urea Nitrogen 18 mg/dL (8-26) Creatinine 1.3 mg/dL (0.7-1.3) Estimated GFR (Cockcroft-Gault) 54.7 BUN/Creatinine Ratio 14 (6-20) Glucose Level 235 mg/dL (70-99) Lactic Acid Level 1.7 mmol/L (0.4-2.0) Calcium Level 8.9 mg/dL (8.5-10.1) Magnesium Level 2.0 mg/dL (1.8-2.4) Total Bilirubin 0.2 mg/dL (0.2-1.0) Aspartate Amino Transf (AST/SGOT) 18 U/L (15-37) Alanine Aminotransferase (ALT/SGPT) 16 U/L (16-63) Alkaline Phosphatase 69 U/L (46-116) Ammonia 21 mcmol/L (11-34) Creatine Kinase 180 U/L (39-308) Creatine Kinase MB (Mass) 2.1 ng/mL (0.0-3.6) Creatine Kinase MB Relative Index 1.2 % (0-4) Troponin I Quantitative < 0.017 ng/mL (0.000-0.055) < 0.017 ng/mL (0.000-0.055) Total Protein 7.4 g/dL (6.4-8.2) Albumin 2.9 g/dL (3.4-5.0) Albumin/Globulin Ratio 0.6 (1.0-1.7) Valproic Acid (Depakene) Level 14 mcg/mL (50-100) Valproic Acid Last Dose Date Valproic Acid Last Dose Time Urine Collection Type Unknown Urine Color Yellow Urine Clarity Clear Urine pH 5.5 Urine Specific [place] 1.020 Urine Protein Negative mg/dL (NEG-TRACE) Urine Glucose (UA) 500 mg/dL (NEG) Urine Ketones (Stick) Negative mg/dL (NEG) Urine Blood Negative (NEG) Urine Nitrite Negative (NEG) Urine Bilirubin Negative (NEG) Urine Urobilinogen Dipstick 1.0 mg/dL (0.2 mg/dL) Urine Leukocyte Esterase Moderate (NEG) Urine RBC 0 /HPF (0-2) Urine WBC 20-40 /HPF (0-4) Urine Squamous Epithelial Cells Occ /LPF Urine Bacteria Many /HPF (0-FEW) Urine Mucus Slight /LPF Test 02/28/19 07:08 02/28/19 07:55 Troponin I Quantitative < 0.017 ng/mL (0.000-0.055) Glucose (Fingerstick) 130 mg/dL (70-99) Laboratory Tests Test 02/27/19 23:57 02/28/19 00:15 02/28/19 02:08 02/28/19 04:15 Glucose (Fingerstick) 221 mg/dL (70-99) White Blood Count 9.7 x10^3/uL (4.0-11.0) Red Blood Count 4.42 x10^6/uL (4.30-5.70) Hemoglobin 13.4 g/dL (13.0-17.5) Hematocrit 39.7 % (39.0-53.0) Mean Corpuscular Volume 90 fL (79-100) Mean Corpuscular Hemoglobin 30 pg (25-35) Mean Corpuscular Hemoglobin Concent 34 g/dL (31-37) Red Cell Distribution Width 13.7 % (11.5-14.5) Platelet Count 307 x10^3/uL (140-400) Neutrophils (%) (Auto) 52 % (31-73) Lymphocytes (%) (Auto) 33 % (24-48) Monocytes (%) (Auto) 10 % (0-9) Eosinophils (%) (Auto) 3 % (0-3) Basophils (%) (Auto) 1 % (0-3) Neutrophils # (Auto) 5.1 x10^3/uL (1.8-7.7) Lymphocytes # (Auto) 3.2 x10^3/uL (1.0-4.8) Monocytes # (Auto) 1.0 x10^3/uL (0.0-1.1) Eosinophils # (Auto) 0.3 x10^3/uL (0.0-0.7) Basophils # (Auto) 0.1 x10^3/uL (0.0-0.2) Prothrombin Time 13.1 SEC (11.7-14.0) Prothromb Time International Ratio 1.0 (0.8-1.1) Activated Partial Thromboplast Time 28 SEC (24-38) Sodium Level 142 mmol/L (136-145) Potassium Level 4.3 mmol/L (3.5-5.1) Chloride Level 105 mmol/L (98-107) Carbon Dioxide Level 26 mmol/L (21-32) Anion Gap 11 (6-14) Blood Urea Nitrogen 18 mg/dL (8-26) Creatinine 1.3 mg/dL (0.7-1.3) Estimated GFR (Cockcroft-Gault) 54.7 BUN/Creatinine Ratio 14 (6-20) Glucose Level 235 mg/dL (70-99) Lactic Acid Level 1.7 mmol/L (0.4-2.0) Calcium Level 8.9 mg/dL (8.5-10.1) Magnesium Level 2.0 mg/dL (1.8-2.4) Total Bilirubin 0.2 mg/dL (0.2-1.0) Aspartate Amino Transf (AST/SGOT) 18 U/L (15-37) Alanine Aminotransferase (ALT/SGPT) 16 U/L (16-63) Alkaline Phosphatase 69 U/L (46-116) Ammonia 21 mcmol/L (11-34) Creatine Kinase 180 U/L (39-308) Creatine Kinase MB (Mass) 2.1 ng/mL (0.0-3.6) Creatine Kinase MB Relative Index 1.2 % (0-4) Troponin I Quantitative < 0.017 ng/mL (0.000-0.055) < 0.017 ng/mL (0.000-0.055) Total Protein 7.4 g/dL (6.4-8.2) Albumin 2.9 g/dL (3.4-5.0) Albumin/Globulin Ratio 0.6 (1.0-1.7) Valproic Acid (Depakene) Level 14 mcg/mL (50-100) Valproic Acid Last Dose Date Valproic Acid Last Dose Time Urine Collection Type Unknown Urine Color Yellow Urine Clarity Clear Urine pH 5.5 Urine Specific [place] 1.020 Urine Protein Negative mg/dL (NEG-TRACE) Urine Glucose (UA) 500 mg/dL (NEG) Urine Ketones (Stick) Negative mg/dL (NEG) Urine Blood Negative (NEG) Urine Nitrite Negative (NEG) Urine Bilirubin Negative (NEG) Urine Urobilinogen Dipstick 1.0 mg/dL (0.2 mg/dL) Urine Leukocyte Esterase Moderate (NEG) Urine RBC 0 /HPF (0-2) Urine WBC 20-40 /HPF (0-4) Urine Squamous Epithelial Cells Occ /LPF Urine Bacteria Many /HPF (0-FEW) Urine Mucus Slight /LPF Test 02/28/19 07:08 02/28/19 07:55 Troponin I Quantitative < 0.017 ng/mL (0.000-0.055) Glucose (Fingerstick) 130 mg/dL (70-99) VTE Prophylaxis Ordered VTE Prophylaxis Devices: No VTE Pharmacological Prophylaxi: Yes Assessment/Plan Assessment/Plan acute new right sided weakness, CVA, acute on chronic, timeline > 8 hours, CT brain showed chronic and subacute infarcts Dm2, on insulin, decrease dose as NPO add PPN Neuro consult poss UTI, + LE, dirty catch, but new lethargy, will try IV abx PT and OT and Speech admit SRAVAN ROMANO MD Feb 28, 2019 09:11
[2019-02-28] MEDS: AMINO AC 3%/ELECTROLYTE/GLYCER 1,000 ML IV SCH ×2 (10:07→21:50)
[2019-02-28] MEDS: cefTRIAXone IV Push 1 GM VIAL. IVP SCH (10:46)
[2019-02-28 11:22] VITALS: BP 141/55
[2019-02-28] MEDS: INSULIN LISPRO 300 UNITS/3 ML VIAL. SQ SCH ×2 (12:00→16:50)
[2019-02-28] MEDS ORDERED: CYANOCOBALAMIN (VITAMIN B-12) 1,000 MCG/ML VIAL IM ONE (13:00)
--- NOTE | 2019-02-28 13:35 | NUR ---
Rec'd call from [facility], no decision maker listed, he signed as own person per staff, no family or neighbors
--- NOTE | 2019-02-28 14:21 | PDOC2 ---
PALLIATIVE CARE Palliative Care Note Palliative Care Consult requested by Dr. Chi to address goals of care. Medical Assessment per medical record; cute new right sided weakness, CVA, acute on chronic, timeline > 8 hours, CT brain showed chronic and subacute infarcts Dm2, on insulin, decrease dose as NPO add PPN Neuro consult poss UTI, + LE, dirty catch, but new lethargy, will try IV abx PT and OT and Speech Patient alert when name called. Unable to communicate. Spoke with Sheron GALVIN at [facility]. When patient came to facility he had been homeless. No decision maker named. Patient was able to make his own decisions. Swallow eval. completed. NPO EEG pending. ILIANA JAVIER Feb 28, 2019 14:21
--- NOTE | 2019-02-28 14:28 | NUR ---
SS following for discharge planning. SS reviewed pt chart. Pt is from [facility], ; fax [phone]. SS contacted [facility] and verified that pt is a LTC resident from there facility and is able to return when medically stable for discharge. Palliative Care consulted. Pt transferred to [facility]. Discussed with Emiliana GALVIN.
--- NOTE | 2019-02-28 14:36 | PDOC2 ---
NEUROLOGY CONSULT Date of Admission Date of Admission DATE: 02/28/19 TIME: 14:24 Reason for Consult Reason for Consult: IMPRESSION: Right side weakness. Slurred speech. Metabolic encephalopathy. Confusion. Lethargy. HTN. HLD. DM. CAD s/p CABG. Vit B12 deficiency. Old CVA. Dementia. 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 RECOMMENDATIONS/PLAN: Continue ASA 300 mg rectal, daily. Vit B12 1000 mcg IM daily. Lab: see orders. Brain MRI. EEG. OT/PT. HISTORY OF THE PRESENT ILLNESS: This is a 68-year-old male patient admit with above medical diseases has new symptoms of mental status changes, lethargy, slurred speech and right sided weakness without known time of symptoms onset. He was brought to the ER of [facility] for evaluation. His HCT reported some low densities. Patient is unable to provide information due to lethargy. Past Medical History Cardiovascular: CAD, HTN, Hyperlipidemia CENTRAL NERVOUS SYSTEM: CVA, Dementia Hepatobiliary: No pertinent hx Psych: No pertinent hx Rheumatologic: No pertinent hx Infectious disease: No pertinent hx Renal/: Chronic renal insuff Endocrine: Diabetes Past Surgical History CABG Family History Diabetes, Hypertension Social History Smoke: Quit ALCOHOL: none Drugs: None ALLERGY: Unknown MEDICATIONS: Refer to MAR REVIEW OF SYSTEMS: Constitutional: No malnutrition, weight loss, cachexia. Head: No recent traumatic brain or head injury. Skin: No edema, or rash. Ear: No infection. Eyes: No vision loss or color blindness. Nose: No bleeding or purulent discharges. Hearing: No hearing decrease. Neck: No injury. Cardiac: CAD, s/p CABG, HTN, HLD. Pulmonary: No COPD. GI: No GI ulcer, GI bleeding. Urinary/genital: UTI. Endocrinologic: Diabetes Mellitus. Skeletomuscular: Generalized weakness. Neurological: see HP. Psychiatric: Denies drug use/abuse. Otherwise, not [id number] review of systems. PHYSICAL EXAMINATION: General appearance is in subacute distress. HEENT: Normocephalic and nontraumatic. Eyes, nose, ears, and throat are unremarkable. Neck is supple. No lymphadenopathy. No crepitus. Cardiovascular: S1, S2, regular rate and rhythm. Pulmonary: Mildly decreased to auscultation bilaterally. Abdomen: Bowel sounds are positive. Extremities: No rash, lesions, or edema. NEUROLOGICAL EXAMINATION: Lethargy. Not oriented to time, place and person. PERRL. EOMI not elicited due to not follow commands. CN: Unable to access. Muscle tone: within normal. Muscle strength: Movements noted to stimuli. DTR: 1-2 Plantar reflex: Not able to performed due to toe and BKA. Gait: not examined in bed. Sensory exam: no abnormal findings. Not able to access cerebellar signs. F-T-N test not performed in lethargic status. Current Medications Current Medications Current Medications Aspirin (Aspirin Rectal Supp) 300 mg 1X ONCE [place] Last administered on 02/28/19at 01:30; Start 02/28/19 at 01:30; Stop 02/28/19 at 01:31; Status DC Ondansetron HCl (Zofran) 4 mg PRN Q8HRS PRN IV NAUSEA/VOMITING; Start 02/28/19 at 01:15; Stop 03/01/19 at 01:14 Insulin Human Lispro (HumaLOG) 0-5 UNITS TIDWMEALS SQ ; Start 02/28/19 at 08:00; Stop 02/28/19 at 09:28; Status DC Dextrose (Dextrose 50%-Water Syringe) 12.5 gm PRN Q15MIN PRN IV SEE COMMENTS; Start 02/28/19 at 01:15; Stop 02/28/19 at 05:38; Status DC Dextrose (Dextrose 50%-Water Syringe) 12.5 gm PRN Q15MIN PRN IV SEE COMMENTS; Start 02/28/19 at 05:30; Stop 02/28/19 at 09:27; Status DC Amino Acids/ Glycerin/ Electrolytes 1,000 ml @ 80 mls/hr [id number] IV Last administered on 02/28/19at 10:07; Start 02/28/19 at 10:00 Aspirin (Aspirin Rectal Supp) 300 mg DAILY RC ; Start 03/01/19 at 09:00 Divalproex Sodium (Depakote Er) 250 mg QHS PO ; Start 02/28/19 at 21:00 Insulin Human Lispro (HumaLOG) 0-9 UNITS TIDWMEALS SQ ; Start 02/28/19 at 12:00 Dextrose (Dextrose 50%-Water Syringe) 12.5 gm PRN Q15MIN PRN IV SEE COMMENTS; Start 02/28/19 at 09:30 Insulin Glargine (Lantus Syringe) 10 unit QHS SQ ; Start 02/28/19 at 21:00 Ceftriaxone Sodium (Rocephin) 1 gm Q24H IVP Last administered on 02/28/19at 10:46; Start 02/28/19 at 10:00 Cyanocobalamin (Vitamin B-12) 1,000 mcg 1X ONCE IM Last administered on 02/28/19at 13:12; Start 02/28/19 at 13:00; Stop 02/28/19 at 13:01; Status DC Active Scripts Active Reported Tylenol (Acetaminophen) 325 Mg Tablet 2 Tab PO PRN Q8HRS PRN Omeprazole 20 Mg Capsule.dr 1 Cap PO DAILY Mucinex (Guaifenesin) 600 Mg Tablet.er 1 Tab PO PRN BID PRN Imodium A-D (Loperamide HCl) 2 Mg Capsule 2 Mg PO PRN Q6HRS PRN Mirtazapine 15 Mg Tablet 7.5 Mg PO QHS Glucose Gel (Dextrose) 38 Gm Gel..gram. 38 Gm PO PRN Q15MIN PRN Glucagon Emergency Kit (Glucagon,Human Recombinant) 1 Mg Kit 1 Mg IM PRN Depakote Er (Divalproex Sodium) 250 Mg Tab.er.24h 1 Tab PO QHS Aspirin 325 Mg Tablet 1 Tab PO DAILY Zofran (Ondansetron Hcl) 4 Mg Tablet 1 Tab PO Q8HRS PRN Lisinopril 20 Mg Tablet 1 Tab PO BID Levemir (Insulin Detemir) 100 Unit/1 Ml Vial 45 Unit SQ QHS Aspirin 300 Mg Supp.rect 300 Mg RC DAILY Hydrocodone-Apap 5-325 (Hydrocodone Bit/Acetaminophen) 1 Each Tablet 1 Tab PO Q4HRS PRN Allergies Allergies: Allergies Coded Allergies Type Severity Reaction Last Updated Verified No Known Drug Allergies 07/29/16 No ROS Review of System The patient denies any associated fevers, chills, headache, ear pain, rhinorrhea, sore throat, stiff neck, productive cough, chest pain, shortness of breath, back or flank pain, abdominal pain, nausea, vomiting, diarrhea, constipation, dysuria, rash, numbness, weakness, tingling, incontinence, difficulty ambulating, or diaphoresis. Physical Exam Physical Exam General: Well developed, well nourished, no acute distress, well appearing HEENT: Pupils equally round and reactive to light, EOMI, no discharge, normal conjunctiva Neck: Supple, no nuchal rigidity, no JVD, trachea midline, no tenderness Cardiac: RRR, no murmurs, no gallops, no rubs Chest/Lungs: CTAB, no wheeze, no rhonchi, no crackles Abdomen: soft, non-distended, no guarding, no peritoneal signs, non-tender Back: No tenderness Extremities: no edema, pulses intact, non-tender,capillary refill <3 sec bilateral upper and lower extremities, Neuro: Alert and oriented x 4, no focal deficits, normal speech Vitals Vitals: Vital Signs Date Time Temp Pulse Resp B/P (MAP) Pulse Ox O2 Delivery O2 Flow Rate FiO2 02/28/19 11:22 98.4 65 20 141/55 (83) 94 Room Air 98.4 Labs Labs Laboratory Tests Test 02/27/19 23:57 02/28/19 00:15 02/28/19 02:08 02/28/19 04:15 Glucose (Fingerstick) 221 mg/dL (70-99) White Blood Count 9.7 x10^3/uL (4.0-11.0) Red Blood Count 4.42 x10^6/uL (4.30-5.70) Hemoglobin 13.4 g/dL (13.0-17.5) Hematocrit 39.7 % (39.0-53.0) Mean Corpuscular Volume 90 fL (79-100) Mean Corpuscular Hemoglobin 30 pg (25-35) Mean Corpuscular Hemoglobin Concent 34 g/dL (31-37) Red Cell Distribution Width 13.7 % (11.5-14.5) Platelet Count 307 x10^3/uL (140-400) Neutrophils (%) (Auto) 52 % (31-73) Lymphocytes (%) (Auto) 33 % (24-48) Monocytes (%) (Auto) 10 % (0-9) Eosinophils (%) (Auto) 3 % (0-3) Basophils (%) (Auto) 1 % (0-3) Neutrophils # (Auto) 5.1 x10^3/uL (1.8-7.7) Lymphocytes # (Auto) 3.2 x10^3/uL (1.0-4.8) Monocytes # (Auto) 1.0 x10^3/uL (0.0-1.1) Eosinophils # (Auto) 0.3 x10^3/uL (0.0-0.7) Basophils # (Auto) 0.1 x10^3/uL (0.0-0.2) Prothrombin Time 13.1 SEC (11.7-14.0) Prothromb Time International Ratio 1.0 (0.8-1.1) Activated Partial Thromboplast Time 28 SEC (24-38) Sodium Level 142 mmol/L (136-145) Potassium Level 4.3 mmol/L (3.5-5.1) Chloride Level 105 mmol/L (98-107) Carbon Dioxide Level 26 mmol/L (21-32) Anion Gap 11 (6-14) Blood Urea Nitrogen 18 mg/dL (8-26) Creatinine 1.3 mg/dL (0.7-1.3) Estimated GFR (Cockcroft-Gault) 54.7 BUN/Creatinine Ratio 14 (6-20) Glucose Level 235 mg/dL (70-99) Lactic Acid Level 1.7 mmol/L (0.4-2.0) Calcium Level 8.9 mg/dL (8.5-10.1) Magnesium Level 2.0 mg/dL (1.8-2.4) Total Bilirubin 0.2 mg/dL (0.2-1.0) Aspartate Amino Transf (AST/SGOT) 18 U/L (15-37) Alanine Aminotransferase (ALT/SGPT) 16 U/L (16-63) Alkaline Phosphatase 69 U/L (46-116) Ammonia 21 mcmol/L (11-34) Creatine Kinase 180 U/L (39-308) Creatine Kinase MB (Mass) 2.1 ng/mL (0.0-3.6) Creatine Kinase MB Relative Index 1.2 % (0-4) Troponin I Quantitative < 0.017 ng/mL (0.000-0.055) < 0.017 ng/mL (0.000-0.055) Total Protein 7.4 g/dL (6.4-8.2) Albumin 2.9 g/dL (3.4-5.0) Albumin/Globulin Ratio 0.6 (1.0-1.7) Valproic Acid (Depakene) Level 14 mcg/mL (50-100) Valproic Acid Last Dose Date Valproic Acid Last Dose Time Urine Collection Type Unknown Urine Color Yellow Urine Clarity Clear Urine pH 5.5 Urine Specific [place] 1.020 Urine Protein Negative mg/dL (NEG-TRACE) Urine Glucose (UA) 500 mg/dL (NEG) Urine Ketones (Stick) Negative mg/dL (NEG) Urine Blood Negative (NEG) Urine Nitrite Negative (NEG) Urine Bilirubin Negative (NEG) Urine Urobilinogen Dipstick 1.0 mg/dL (0.2 mg/dL) Urine Leukocyte Esterase Moderate (NEG) Urine RBC 0 /HPF (0-2) Urine WBC 20-40 /HPF (0-4) Urine Squamous Epithelial Cells Occ /LPF Urine Bacteria Many /HPF (0-FEW) Urine Mucus Slight /LPF Test 02/28/19 07:08 02/28/19 07:55 02/28/19 10:48 Troponin I Quantitative < 0.017 ng/mL (0.000-0.055) Vitamin B12 Level 240 pg/mL (247-911) Thyroid Stimulating Hormone (TSH) 1.855 uIU/mL (0.358-3.74) Glucose (Fingerstick) 130 mg/dL (70-99) 127 mg/dL (70-99) Laboratory Tests Test 02/27/19 23:57 02/28/19 00:15 02/28/19 02:08 02/28/19 04:15 Glucose (Fingerstick) 221 mg/dL (70-99) White Blood Count 9.7 x10^3/uL (4.0-11.0) Red Blood Count 4.42 x10^6/uL (4.30-5.70) Hemoglobin 13.4 g/dL (13.0-17.5) Hematocrit 39.7 % (39.0-53.0) Mean Corpuscular Volume 90 fL (79-100) Mean Corpuscular Hemoglobin 30 pg (25-35) Mean Corpuscular Hemoglobin Concent 34 g/dL (31-37) Red Cell Distribution Width 13.7 % (11.5-14.5) Platelet Count 307 x10^3/uL (140-400) Neutrophils (%) (Auto) 52 % (31-73) Lymphocytes (%) (Auto) 33 % (24-48) Monocytes (%) (Auto) 10 % (0-9) Eosinophils (%) (Auto) 3 % (0-3) Basophils (%) (Auto) 1 % (0-3) Neutrophils # (Auto) 5.1 x10^3/uL (1.8-7.7) Lymphocytes # (Auto) 3.2 x10^3/uL (1.0-4.8) Monocytes # (Auto) 1.0 x10^3/uL (0.0-1.1) Eosinophils # (Auto) 0.3 x10^3/uL (0.0-0.7) Basophils # (Auto) 0.1 x10^3/uL (0.0-0.2) Prothrombin Time 13.1 SEC (11.7-14.0) Prothromb Time International Ratio 1.0 (0.8-1.1) Activated Partial Thromboplast Time 28 SEC (24-38) Sodium Level 142 mmol/L (136-145) Potassium Level 4.3 mmol/L (3.5-5.1) Chloride Level 105 mmol/L (98-107) Carbon Dioxide Level 26 mmol/L (21-32) Anion Gap 11 (6-14) Blood Urea Nitrogen 18 mg/dL (8-26) Creatinine 1.3 mg/dL (0.7-1.3) Estimated GFR (Cockcroft-Gault) 54.7 BUN/Creatinine Ratio 14 (6-20) Glucose Level 235 mg/dL (70-99) Lactic Acid Level 1.7 mmol/L (0.4-2.0) Calcium Level 8.9 mg/dL (8.5-10.1) Magnesium Level 2.0 mg/dL (1.8-2.4) Total Bilirubin 0.2 mg/dL (0.2-1.0) Aspartate Amino Transf (AST/SGOT) 18 U/L (15-37) Alanine Aminotransferase (ALT/SGPT) 16 U/L (16-63) Alkaline Phosphatase 69 U/L (46-116) Ammonia 21 mcmol/L (11-34) Creatine Kinase 180 U/L (39-308) Creatine Kinase MB (Mass) 2.1 ng/mL (0.0-3.6) Creatine Kinase MB Relative Index 1.2 % (0-4) Troponin I Quantitative < 0.017 ng/mL (0.000-0.055) < 0.017 ng/mL (0.000-0.055) Total Protein 7.4 g/dL (6.4-8.2) Albumin 2.9 g/dL (3.4-5.0) Albumin/Globulin Ratio 0.6 (1.0-1.7) Valproic Acid (Depakene) Level 14 mcg/mL (50-100) Valproic Acid Last Dose Date Valproic Acid Last Dose Time Urine Collection Type Unknown Urine Color Yellow Urine Clarity Clear Urine pH 5.5 Urine Specific [place] 1.020 Urine Protein Negative mg/dL (NEG-TRACE) Urine Glucose (UA) 500 mg/dL (NEG) Urine Ketones (Stick) Negative mg/dL (NEG) Urine Blood Negative (NEG) Urine Nitrite Negative (NEG) Urine Bilirubin Negative (NEG) Urine Urobilinogen Dipstick 1.0 mg/dL (0.2 mg/dL) Urine Leukocyte Esterase Moderate (NEG) Urine RBC 0 /HPF (0-2) Urine WBC 20-40 /HPF (0-4) Urine Squamous Epithelial Cells Occ /LPF Urine Bacteria Many /HPF (0-FEW) Urine Mucus Slight /LPF Test 02/28/19 07:08 02/28/19 07:55 02/28/19 10:48 Troponin I Quantitative < 0.017 ng/mL (0.000-0.055) Vitamin B12 Level 240 pg/mL (247-911) Thyroid Stimulating Hormone (TSH) 1.855 uIU/mL (0.358-3.74) Glucose (Fingerstick) 130 mg/dL (70-99) 127 mg/dL (70-99) HECTOR SAWYER MD Feb 28, 2019 14:36
--- NOTE | 2019-02-28 18:13 | RAD ---
Indication: Abnormal CT. Stroke. TECHNIQUE: Noncontrast MRI of the brain. COMPARISON: CT had from same day Findings : 1.4 x 1.1 cm area of restricted diffusion is seen in the left thalamocapsular junction. Additional few scattered foci of high intensity signal on DWI sequence seen in the supratentorial brain for example in the left parietal lobe and also in the right centrum semiovale. No definite ADC signal seen corresponding to these foci. Small area of encephalomalacia is seen in the medial aspect of the left frontal lobe and in the right superior cerebellum most likely old infarcts. No abnormal T1 signal seen. No pathologic extra-axial or intra-axial fluid collections. Mild diffuse atrophy. The ventricles and basal cisterns are within normal limits. Mild periventricular high intensity FLAIR and T2 signal seen. The major intracranial flow voids are maintained. Orbits are within normal limits. No large paranasal sinus or mastoid effusions. No abnormal marrow signal seen. IMPRESSION: 1. Acute ischemic infarct at the left thalamocapsular junction. Additional few foci of high intensity signal DWI without corresponding ADC signal, nonspecific but small acute infarcts not ruled out. 2. 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 3. White matter changes likely secondary to chronic microvascular ischemic disease. Critical findings were identified on 02/28/2019 5:58 PM, read back and verified with Nurse Han on 02/28/2019 6:[address] Neptali Escudero DO. Electronically signed by: Neptali Escudero DO (02/28/2019 6:10 PM) [id number]
--- NOTE | 2019-02-28 18:16 | NUR ---
Dr. Nancy flores with abnormal results, acute infarct 1.3 cm on left
--- NOTE | 2019-02-28 18:29 | NUR ---
Rec'd orders from Dr. Cruz for Carotid U/S, Echo with Bubble Study
[2019-02-28 19:20] VITALS: BP 133/60
[2019-02-28] MEDS: DIVALPROEX EXTENDED RELEASE 250 MG TAB.ER.24H. PO SCH (21:00)
[2019-02-28] MEDS: INSULIN GLARGINE SYRINGE. SQ SCH (21:46)
[2019-02-28 23:20] VITALS: BP 130/50
[2019-03-01 03:20] VITALS: BP 130/59
[2019-03-01 04:00] LABS: BASO # 0.1 x10^3/uL (0.0-0.2); BASO % 1 % (0-3); EOS # 0.5 x10^3/uL (0.0-0.7); EOS % 5 % (0-3); HEMATOCRIT 38.5 % (39.0-53.0); HEMOGLOBIN 13.1 g/dL (13.0-17.5); LYMPH # 2.7 x10^3/uL (1.0-4.8); LYMPH % 30 % (24-48); MEAN CORPUSCULAR HEMOGLOBIN 31 pg (25-35); MEAN CORPUSCULAR HGB CONC 34 g/dL (31-37); MEAN CORPUSCULAR VOLUME 90 fL (79-100); MONO # 0.9 x10^3/uL (0.0-1.1); MONO % 10 % (0-9); NEUT % 55 % (31-73); PLATELET COUNT 281 x10^3/uL (140-400); RED BLOOD COUNT 4.27 x10^6/uL (4.30-5.70); RED CELL DISTRIBUTION WIDTH 13.6 % (11.5-14.5); WHITE BLOOD COUNT 9.2 x10^3/uL (4.0-11.0)
[2019-03-01 04:27] LABS: ALBUMIN 2.7 g/dL (3.4-5.0); ALBUMIN/GLOBULIN RATIO 0.6 (1.0-1.7); CREATININE 1.2 mg/dL (0.7-1.3); POTASSIUM 4.2 mmol/L (3.5-5.1); TOTAL BILIRUBIN 0.3 mg/dL (0.2-1.0); TOTAL PROTEIN 6.9 g/dL (6.4-8.2)
[2019-03-01 04:31] LABS: CHOLESTEROL/HDL RATIO 8.4
[2019-03-01 07:00] VITALS: BP 157/75
--- NOTE | 2019-03-01 07:51 | PDOC ---
PROGRESS NOTES History of Present Illness History of Present Illness VTE Prophylaxis Ordered VTE Prophylaxis Devices: No VTE Pharmacological Prophylaxi: Yes Assessment/Plan Assessment/Plan acute new right sided weakness, Acute ischemic infarct at the left thalamocapsular junction. Additional few foci of high intensity signal DWI without corresponding ADC signal, nonspecific but small acute infarcts not ruled out. 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 White matter changes likely secondary to chronic microvascular ischemic disease. CVA, acute on chronic, timeline > 8 hours, CT brain C/W chronic and subacute infarcts Acute metabolic encephalopathy Dm 1 with Hyperglycemia. Vasomotor nephropathy, Diabetes with severe chronic atherosclerosis, multilevel. Cardiomyopathy The Ejection Fraction is estimated at 30%. 2017 Chronic systolic HF PAD HX splenic infarcts, old Dm2, on insulin, NPO add PPN Neuro consult PENDING CARDIOLOGY CONSULT poss UTI, + LE, dirty catch, new lethargy, IV abx PT and OT and Speech admit 38 MIN PT EXAM, CHART REVIEW, > 50% OF TIME SPENT WITH EXAM, CHART REVIEW, PT CARE COORDINATION Vitals Vitals Vital Signs Date Time Temp Pulse Resp B/P (MAP) Pulse Ox O2 Delivery O2 Flow Rate FiO2 03/01/19 03:20 98.0 17 130/59 (82) 91 Room Air 98.0 02/28/19 23:20 79 Physical Exam General: Alert, Cooperative, No acute distress, Other (lethargic, hard to arouse, does follow commands, ) Heart: Normal S1, No murmurs Lungs: Clear Abdomen: Normal bowel sounds, Soft, No tenderness Extremities: No clubbing, No cyanosis, No edema, Other (left AKA amputation) Skin: No breakdown, No significant lesion Labs LABS LEFT VENTRICLE The left ventricle is normal size. There is borderline concentric left ventricular hypertrophy. Left ventricle systolic function is moderate to severely decreased. The Ejection Fraction is estimated at 30%. Basal septal hypokinesis. The left ventricular diastolic function and filling is normal for age. RIGHT VENTRICLE The right ventricle is normal size. The right ventricular systolic function is normal. ATRIA The left atrium size is normal. The right atrium size is normal. The interatrial septum is intact with no evidence for an atrial septal defect or patent foramen ovale as noted on 2-D or Doppler imaging. AORTIC VALVE The aortic valve is normal in structure and function. The aortic valve is trileaflet. Doppler and Color Flow revealed no significant aortic regurgitation. There is no significant aortic valvular stenosis. MITRAL VALVE Mitral annular calcification is mild. There is no mitral valve stenosis. Doppler and Color Flow revealed mild mitral regurgitation. TRICUSPID VALVE The tricuspid valve is normal in structure and function. Doppler and Color Flow revealed mild tricuspid regurgitation. The PA pressure was estimated at 17 mmHg. There is no tricuspid valve stenosis. PULMONIC VALVE The pulmonic valve is not well visualized. Doppler and Color Flow revealed no pulmonic valvular regurgitation. There is no pulmonic valvular stenosis. GREAT VESSELS The aortic root is normal in size. Normal pulmonary venous flow (Doppler). The IVC is normal in size and collapses >50% with inspiration. PERICARDIAL EFFUSION There is no evidence of significant pericardial effusion. Critical Notification Date: 07/29/2016 Time: 12:30 Other Discipline : LEONARD Aguero Critical Value: Yes <Conclusion> The left ventricle is normal size. Left ventricle systolic function is moderate to severely decreased. The Ejection Fraction is estimated at 30%. There is borderline concentric left ventricular hypertrophy. There is no significant aortic valvular stenosis. Doppler and Color Flow revealed no significant aortic regurgitation. Doppler and Color Flow revealed mild mitral regurgitation. Doppler and Color Flow revealed mild tricuspid regurgitation. The PA pressure was estimated at 17 mmHg. DICTATED and SIGNED BY: ANA SOW MD Indication: Abnormal CT. Stroke. TECHNIQUE: Noncontrast MRI of the brain. COMPARISON: CT had from same day Findings : 1.4 x 1.1 cm area of restricted diffusion is seen in the left thalamocapsular junction. Additional few scattered foci of high intensity signal on DWI sequence seen in the supratentorial brain for example in the left parietal lobe and also in the right centrum semiovale. No definite ADC signal seen corresponding to these foci. Small area of encephalomalacia is seen in the medial aspect of the left frontal lobe and in the right superior cerebellum most likely old infarcts. No abnormal T1 signal seen. No pathologic extra-axial or intra-axial fluid collections. Mild diffuse atrophy. The ventricles and basal cisterns are within normal limits. Mild periventricular high intensity FLAIR and T2 signal seen. The major intracranial flow voids are maintained. Orbits are within normal limits. No large paranasal sinus or mastoid effusions. No abnormal marrow signal seen. IMPRESSION: 1. Acute ischemic infarct at the left thalamocapsular junction. Additional few foci of high intensity signal DWI without corresponding ADC signal, nonspecific but small acute infarcts not ruled out. 2. 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 3. White matter changes likely secondary to chronic microvascular ischemic disease. Critical findings were identified on 02/28/2019 5:58 PM, read back and verified with Nurse Emely on 02/28/2019 6:[address] Neptali Escudero DO. Electronically signed by: Neptali Escudero DO (02/28/2019 6:10 PM) [id number] DICTATED and SIGNED BY: NEPTALI ESCUDERO DO DATE: 02/28/191809 Laboratory Tests Test 02/28/19 07:55 02/28/19 10:48 02/28/19 16:43 02/28/19 21:13 Glucose (Fingerstick) 130 mg/dL (70-99) 127 mg/dL (70-99) 132 mg/dL (70-99) 121 mg/dL (70-99) Test 03/01/19 03:15 03/01/19 07:39 White Blood Count 9.2 x10^3/uL (4.0-11.0) Red Blood Count 4.27 x10^6/uL (4.30-5.70) Hemoglobin 13.1 g/dL (13.0-17.5) Hematocrit 38.5 % (39.0-53.0) Mean Corpuscular Volume 90 fL (79-100) Mean Corpuscular Hemoglobin 31 pg (25-35) Mean Corpuscular Hemoglobin Concent 34 g/dL (31-37) Red Cell Distribution Width 13.6 % (11.5-14.5) Platelet Count 281 x10^3/uL (140-400) Neutrophils (%) (Auto) 55 % (31-73) Lymphocytes (%) (Auto) 30 % (24-48) Monocytes (%) (Auto) 10 % (0-9) Eosinophils (%) (Auto) 5 % (0-3) Basophils (%) (Auto) 1 % (0-3) Neutrophils # (Auto) 5.0 x10^3/uL (1.8-7.7) Lymphocytes # (Auto) 2.7 x10^3/uL (1.0-4.8) Monocytes # (Auto) 0.9 x10^3/uL (0.0-1.1) Eosinophils # (Auto) 0.5 x10^3/uL (0.0-0.7) Basophils # (Auto) 0.1 x10^3/uL (0.0-0.2) Sodium Level 143 mmol/L (136-145) Potassium Level 4.2 mmol/L (3.5-5.1) Chloride Level 106 mmol/L (98-107) Carbon Dioxide Level 29 mmol/L (21-32) Anion Gap 8 (6-14) Blood Urea Nitrogen 19 mg/dL (8-26) Creatinine 1.2 mg/dL (0.7-1.3) Estimated GFR (Cockcroft-Gault) 60.0 BUN/Creatinine Ratio 16 (6-20) Glucose Level 159 mg/dL (70-99) Calcium Level 9.0 mg/dL (8.5-10.1) Total Bilirubin 0.3 mg/dL (0.2-1.0) Aspartate Amino Transf (AST/SGOT) 18 U/L (15-37) Alanine Aminotransferase (ALT/SGPT) 19 U/L (16-63) Alkaline Phosphatase 61 U/L (46-116) Total Protein 6.9 g/dL (6.4-8.2) Albumin 2.7 g/dL (3.4-5.0) Albumin/Globulin Ratio 0.6 (1.0-1.7) Triglycerides Level 240 mg/dL (0-150) Cholesterol Level 219 mg/dL (0-200) LDL Cholesterol, Calculated 145 mg/dL (0-100) VLDL Cholesterol, Calculated 48 mg/dL (0-40) Non-HDL Cholesterol Calculated 193 mg/dL (0-129) HDL Cholesterol 26 mg/dL (40-60) Cholesterol/HDL Ratio 8.4 Glucose (Fingerstick) 152 mg/dL (70-99) Comment Review of Relevant I have reviewed the following items chris (where applicable) has been applied. Labs Laboratory Tests Test 02/27/19 23:57 02/28/19 00:15 02/28/19 02:08 02/28/19 04:15 Glucose (Fingerstick) 221 mg/dL (70-99) White Blood Count 9.7 x10^3/uL (4.0-11.0) Red Blood Count 4.42 x10^6/uL (4.30-5.70) Hemoglobin 13.4 g/dL (13.0-17.5) Hematocrit 39.7 % (39.0-53.0) Mean Corpuscular Volume 90 fL (79-100) Mean Corpuscular Hemoglobin 30 pg (25-35) Mean Corpuscular Hemoglobin Concent 34 g/dL (31-37) Red Cell Distribution Width 13.7 % (11.5-14.5) Platelet Count 307 x10^3/uL (140-400) Neutrophils (%) (Auto) 52 % (31-73) Lymphocytes (%) (Auto) 33 % (24-48) Monocytes (%) (Auto) 10 % (0-9) Eosinophils (%) (Auto) 3 % (0-3) Basophils (%) (Auto) 1 % (0-3) Neutrophils # (Auto) 5.1 x10^3/uL (1.8-7.7) Lymphocytes # (Auto) 3.2 x10^3/uL (1.0-4.8) Monocytes # (Auto) 1.0 x10^3/uL (0.0-1.1) Eosinophils # (Auto) 0.3 x10^3/uL (0.0-0.7) Basophils # (Auto) 0.1 x10^3/uL (0.0-0.2) Prothrombin Time 13.1 SEC (11.7-14.0) Prothromb Time International Ratio 1.0 (0.8-1.1) Activated Partial Thromboplast Time 28 SEC (24-38) Sodium Level 142 mmol/L (136-145) Potassium Level 4.3 mmol/L (3.5-5.1) Chloride Level 105 mmol/L (98-107) Carbon Dioxide Level 26 mmol/L (21-32) Anion Gap 11 (6-14) Blood Urea Nitrogen 18 mg/dL (8-26) Creatinine 1.3 mg/dL (0.7-1.3) Estimated GFR (Cockcroft-Gault) 54.7 BUN/Creatinine Ratio 14 (6-20) Glucose Level 235 mg/dL (70-99) Lactic Acid Level 1.7 mmol/L (0.4-2.0) Calcium Level 8.9 mg/dL (8.5-10.1) Magnesium Level 2.0 mg/dL (1.8-2.4) Total Bilirubin 0.2 mg/dL (0.2-1.0) Aspartate Amino Transf (AST/SGOT) 18 U/L (15-37) Alanine Aminotransferase (ALT/SGPT) 16 U/L (16-63) Alkaline Phosphatase 69 U/L (46-116) Ammonia 21 mcmol/L (11-34) Creatine Kinase 180 U/L (39-308) Creatine Kinase MB (Mass) 2.1 ng/mL (0.0-3.6) Creatine Kinase MB Relative Index 1.2 % (0-4) Troponin I Quantitative < 0.017 ng/mL (0.000-0.055) < 0.017 ng/mL (0.000-0.055) Total Protein 7.4 g/dL (6.4-8.2) Albumin 2.9 g/dL (3.4-5.0) Albumin/Globulin Ratio 0.6 (1.0-1.7) Valproic Acid (Depakene) Level 14 mcg/mL (50-100) Valproic Acid Last Dose Date Valproic Acid Last Dose Time Urine Collection Type Unknown Urine Color Yellow Urine Clarity Clear Urine pH 5.5 Urine Specific [place] 1.020 Urine Protein Negative mg/dL (NEG-TRACE) Urine Glucose (UA) 500 mg/dL (NEG) Urine Ketones (Stick) Negative mg/dL (NEG) Urine Blood Negative (NEG) Urine Nitrite Negative (NEG) Urine Bilirubin Negative (NEG) Urine Urobilinogen Dipstick 1.0 mg/dL (0.2 mg/dL) Urine Leukocyte Esterase Moderate (NEG) Urine RBC 0 /HPF (0-2) Urine WBC 20-40 /HPF (0-4) Urine Squamous Epithelial Cells Occ /LPF Urine Bacteria Many /HPF (0-FEW) Urine Mucus Slight /LPF Test 02/28/19 07:08 02/28/19 07:55 02/28/19 10:48 02/28/19 16:43 Troponin I Quantitative < 0.017 ng/mL (0.000-0.055) Vitamin B12 Level 240 pg/mL (247-911) Thyroid Stimulating Hormone (TSH) 1.855 uIU/mL (0.358-3.74) Glucose (Fingerstick) 130 mg/dL (70-99) 127 mg/dL (70-99) 132 mg/dL (70-99) Test 02/28/19 21:13 03/01/19 03:15 03/01/19 07:39 Glucose (Fingerstick) 121 mg/dL (70-99) 152 mg/dL (70-99) White Blood Count 9.2 x10^3/uL (4.0-11.0) Red Blood Count 4.27 x10^6/uL (4.30-5.70) Hemoglobin 13.1 g/dL (13.0-17.5) Hematocrit 38.5 % (39.0-53.0) Mean Corpuscular Volume 90 fL (79-100) Mean Corpuscular Hemoglobin 31 pg (25-35) Mean Corpuscular Hemoglobin Concent 34 g/dL (31-37) Red Cell Distribution Width 13.6 % (11.5-14.5) Platelet Count 281 x10^3/uL (140-400) Neutrophils (%) (Auto) 55 % (31-73) Lymphocytes (%) (Auto) 30 % (24-48) Monocytes (%) (Auto) 10 % (0-9) Eosinophils (%) (Auto) 5 % (0-3) Basophils (%) (Auto) 1 % (0-3) Neutrophils # (Auto) 5.0 x10^3/uL (1.8-7.7) Lymphocytes # (Auto) 2.7 x10^3/uL (1.0-4.8) Monocytes # (Auto) 0.9 x10^3/uL (0.0-1.1) Eosinophils # (Auto) 0.5 x10^3/uL (0.0-0.7) Basophils # (Auto) 0.1 x10^3/uL (0.0-0.2) Sodium Level 143 mmol/L (136-145) Potassium Level 4.2 mmol/L (3.5-5.1) Chloride Level 106 mmol/L (98-107) Carbon Dioxide Level 29 mmol/L (21-32) Anion Gap 8 (6-14) Blood Urea Nitrogen 19 mg/dL (8-26) Creatinine 1.2 mg/dL (0.7-1.3) Estimated GFR (Cockcroft-Gault) 60.0 BUN/Creatinine Ratio 16 (6-20) Glucose Level 159 mg/dL (70-99) Calcium Level 9.0 mg/dL (8.5-10.1) Total Bilirubin 0.3 mg/dL (0.2-1.0) Aspartate Amino Transf (AST/SGOT) 18 U/L (15-37) Alanine Aminotransferase (ALT/SGPT) 19 U/L (16-63) Alkaline Phosphatase 61 U/L (46-116) Total Protein 6.9 g/dL (6.4-8.2) Albumin 2.7 g/dL (3.4-5.0) Albumin/Globulin Ratio 0.6 (1.0-1.7) Triglycerides Level 240 mg/dL (0-150) Cholesterol Level 219 mg/dL (0-200) LDL Cholesterol, Calculated 145 mg/dL (0-100) VLDL Cholesterol, Calculated 48 mg/dL (0-40) Non-HDL Cholesterol Calculated 193 mg/dL (0-129) HDL Cholesterol 26 mg/dL (40-60) Cholesterol/HDL Ratio 8.4 Laboratory Tests Test 02/28/19 07:55 02/28/19 10:48 02/28/19 16:43 02/28/19 21:13 Glucose (Fingerstick) 130 mg/dL (70-99) 127 mg/dL (70-99) 132 mg/dL (70-99) 121 mg/dL (70-99) Test 03/01/19 03:15 03/01/19 07:39 White Blood Count 9.2 x10^3/uL (4.0-11.0) Red Blood Count 4.27 x10^6/uL (4.30-5.70) Hemoglobin 13.1 g/dL (13.0-17.5) Hematocrit 38.5 % (39.0-53.0) Mean Corpuscular Volume 90 fL (79-100) Mean Corpuscular Hemoglobin 31 pg (25-35) Mean Corpuscular Hemoglobin Concent 34 g/dL (31-37) Red Cell Distribution Width 13.6 % (11.5-14.5) Platelet Count 281 x10^3/uL (140-400) Neutrophils (%) (Auto) 55 % (31-73) Lymphocytes (%) (Auto) 30 % (24-48) Monocytes (%) (Auto) 10 % (0-9) Eosinophils (%) (Auto) 5 % (0-3) Basophils (%) (Auto) 1 % (0-3) Neutrophils # (Auto) 5.0 x10^3/uL (1.8-7.7) Lymphocytes # (Auto) 2.7 x10^3/uL (1.0-4.8) Monocytes # (Auto) 0.9 x10^3/uL (0.0-1.1) Eosinophils # (Auto) 0.5 x10^3/uL (0.0-0.7) Basophils # (Auto) 0.1 x10^3/uL (0.0-0.2) Sodium Level 143 mmol/L (136-145) Potassium Level 4.2 mmol/L (3.5-5.1) Chloride Level 106 mmol/L (98-107) Carbon Dioxide Level 29 mmol/L (21-32) Anion Gap 8 (6-14) Blood Urea Nitrogen 19 mg/dL (8-26) Creatinine 1.2 mg/dL (0.7-1.3) Estimated GFR (Cockcroft-Gault) 60.0 BUN/Creatinine Ratio 16 (6-20) Glucose Level 159 mg/dL (70-99) Calcium Level 9.0 mg/dL (8.5-10.1) Total Bilirubin 0.3 mg/dL (0.2-1.0) Aspartate Amino Transf (AST/SGOT) 18 U/L (15-37) Alanine Aminotransferase (ALT/SGPT) 19 U/L (16-63) Alkaline Phosphatase 61 U/L (46-116) Total Protein 6.9 g/dL (6.4-8.2) Albumin 2.7 g/dL (3.4-5.0) Albumin/Globulin Ratio 0.6 (1.0-1.7) Triglycerides Level 240 mg/dL (0-150) Cholesterol Level 219 mg/dL (0-200) LDL Cholesterol, Calculated 145 mg/dL (0-100) VLDL Cholesterol, Calculated 48 mg/dL (0-40) Non-HDL Cholesterol Calculated 193 mg/dL (0-129) HDL Cholesterol 26 mg/dL (40-60) Cholesterol/HDL Ratio 8.4 Glucose (Fingerstick) 152 mg/dL (70-99) Medications Current Medications Aspirin (Aspirin Rectal Supp) 300 mg 1X ONCE [place] Last administered on 02/28/19at 01:30; Start 02/28/19 at 01:30; Stop 02/28/19 at 01:31; Status DC Ondansetron HCl (Zofran) 4 mg PRN Q8HRS PRN IV NAUSEA/VOMITING; Start 02/28/19 at 01:15; Stop 03/01/19 at 01:14; Status DC Insulin Human Lispro (HumaLOG) 0-5 UNITS TIDWMEALS SQ ; Start 02/28/19 at 08:00; Stop 02/28/19 at 09:28; Status DC Dextrose (Dextrose 50%-Water Syringe) 12.5 gm PRN Q15MIN PRN IV SEE COMMENTS; Start 02/28/19 at 01:15; Stop 02/28/19 at 05:38; Status DC Dextrose (Dextrose 50%-Water Syringe) 12.5 gm PRN Q15MIN PRN IV SEE COMMENTS; Start 02/28/19 at 05:30; Stop 02/28/19 at 09:27; Status DC Amino Acids/ Glycerin/ Electrolytes 1,000 ml @ 80 mls/hr [id number] IV Last administered on 02/28/19at 21:50; Start 02/28/19 at 10:00 Aspirin (Aspirin Rectal Supp) 300 mg DAILY RC ; Start 03/01/19 at 09:00 Divalproex Sodium (Depakote Er) 250 mg QHS PO ; Start 02/28/19 at 21:00 Insulin Human Lispro (HumaLOG) 0-9 UNITS TIDWMEALS SQ ; Start 02/28/19 at 12:00 Dextrose (Dextrose 50%-Water Syringe) 12.5 gm PRN Q15MIN PRN IV SEE COMMENTS; Start 02/28/19 at 09:30 Insulin Glargine (Lantus Syringe) 10 unit QHS SQ Last administered on 02/28/19at 21:46; Start 02/28/19 at 21:00 Ceftriaxone Sodium (Rocephin) 1 gm Q24H IVP Last administered on 02/28/19at 10:46; Start 02/28/19 at 10:00 Cyanocobalamin (Vitamin B-12) 1,000 mcg 1X ONCE IM Last administered on at 13:12; Start 02/28/19 at 13:00; Stop 02/28/19 at 13:01; Status DC Active Scripts Active Reported Tylenol (Acetaminophen) 325 Mg Tablet 2 Tab PO PRN Q8HRS PRN Omeprazole 20 Mg Capsule. 1 Cap PO DAILY Mucinex (Guaifenesin) 600 Mg Tablet.er 1 Tab PO PRN BID PRN Imodium A-D (Loperamide HCl) 2 Mg Capsule 2 Mg PO PRN Q6HRS PRN Mirtazapine 15 Mg Tablet 7.5 Mg PO QHS Glucose Gel (Dextrose) 38 Gm Gel..gram. 38 Gm PO PRN Q15MIN PRN Glucagon Emergency Kit (Glucagon,Human Recombinant) 1 Mg Kit 1 Mg IM PRN Depakote Er (Divalproex Sodium) 250 Mg Tab.er.24h 1 Tab PO QHS Aspirin 325 Mg Tablet 1 Tab PO DAILY Zofran (Ondansetron Hcl) 4 Mg Tablet 1 Tab PO Q8HRS PRN Lisinopril 20 Mg Tablet 1 Tab PO BID Levemir (Insulin Detemir) 100 Unit/1 Ml Vial 45 Unit SQ QHS Aspirin 300 Mg Supp.rect 300 Mg RC DAILY Hydrocodone-Apap 5-325 (Hydrocodone Bit/Acetaminophen) 1 Each Tablet 1 Tab PO Q4HRS PRN Vitals/I & O Vital Sign - Last 24 Hours 02/28/19 02/28/19 02/28/19 02/28/19 08:00 11:22 19:20 20:15 Temp 98.4 98.4 98.4 98.4 Pulse 65 75 Resp 20 17 B/P (MAP) 141/55 (83) 133/60 (84) Pulse Ox 94 96 O2 Delivery Room Air Room Air Room Air Room Air 02/28/19 03/01/19 23:20 03:20 Temp 98.6 98.0 98.6 98.0 Pulse 79 Resp 17 17 B/P (MAP) 130/50 (76) 130/59 (82) Pulse Ox 93 91 O2 Delivery Room Air Room Air Intake and Output 02/28/19 02/28/19 03/01/19 15:00 23:00 07:00 Intake Total 0 ml 0 ml Balance 0 ml 0 ml SHANIKA FERNÁNDEZ MD Mar 01, 2019 07:51
[2019-03-01] MEDS: INSULIN LISPRO 300 UNITS/3 ML VIAL. SQ SCH ×3 (08:00→17:00)
--- NOTE | 2019-03-01 08:39 | RAD ---
Ultrasound carotid Doppler 03/01/2019 5:18 AM INDICATION: Acute infarct measuring 1.3 cm on the left. COMPARISON: None available TECHNIQUE: Sonographic imaging of the carotid vasculature was performed utilizing grayscale, color Doppler and spectral waveform analysis. FINDINGS: (All velocities are measured cm per second) Right carotid: Plaque is noted throughout the common carotid artery. Right vertebral artery is not well visualized. Peak systolic velocity (cm per second): Proximal common carotid artery: 75 Middle common carotid artery: 87 Distal common carotid artery: 79 Proximal internal carotid artery: 81 Middle internal carotid artery: 115 Distal internal carotid artery: 109 End-diastolic velocity: 24 External carotid artery: 235 Internal carotid artery/common carotid artery ratio: 0.9-1.3 Vertebral artery: Not visualized Left carotid: Plaque is identified throughout the common carotid artery and proximal left internal carotid artery with less than 50 percent luminal stenosis. Peak systolic velocity: Proximal common carotid artery: 104 Middle common carotid artery: 108 Distal common carotid artery: 107 Proximal internal carotid artery: 79 Middle internal carotid artery: 100 Distal internal carotid artery: 137 End-diastolic velocity: 47 External carotid artery: 166 Internal carotid artery/common carotid artery ratio: 0.7-1.2 Vertebral artery: Antegrade flow IMPRESSION: 1. There is no hemodynamically significant right-sided carotid stenosis. There is moderate (50-69 percent) stenosis involving the left internal carotid artery with elevated end-diastolic velocity in the distal internal carotid artery. 2. Right vertebral artery is not visualized. Antegrade flow noted in the left vertebral artery. 3. Evaluation of the carotid vasculature and measurements for luminal stenosis was performed utilizing NASCET criteria. Electronically signed by: Yin Amador MD (03/01/2019 8:36 AM) [facility]
[2019-03-01 11:34] VITALS: BP 119/50
--- NOTE | 2019-03-01 12:09 | NUR ---
SW following pt. Chart reviewed and discussed with Palliative care. Pt does not have DPOA or family to help make decisions. Pt from [facility] and able to return upon dc. SW will continue to follow.
--- NOTE | 2019-03-01 12:37 | EEG ---
DATE OF SERVICE: 02/28/2019 EEG NUMBER: [id number]. OBJECTIVE: This is a 68-year-old male patient with persistent mental status changes. EEG was requested to evaluate cerebral activity. METHODS: Twenty electrodes were applied according to the international 10-20 electrode placement system. EKG monitoring, hyperventilation, intermittent photic stimulation, monopolar and bipolar montages are routinely utilized. The record was obtained on a digital system with video monitoring. FINDINGS: 1. Background: The patient was recorded in the awake, drowsy and sleep states. The overall background amplitude is 5-15 microvolts. A posterior dominant rhythm of 7-8 Hz is observed. 2. Abnormalities: No specific epileptiform discharge or electrographic seizure is seen. No diffuse slowing. 3. Activation: Hyperventilation was not performed because patient was unable to follow the commands. Intermittent photic stimulation was performed with photic driving. IMPRESSION: This EEG is a mildly abnormal study for the awake, drowsy and sleep states. The posterior dominant rhythm of 7-8 Hz is slow for age. No focal, lateralizing, specific epileptiform discharge or electrographic seizure is seen. HECTOR SAWYER MD DR: KAITLYN/vikki JOB#: [id number] / [id number] ALDA
[2019-03-01] MEDS: ASPIRIN RECTAL 300 MG SUPP. RC SCH (13:04)
[2019-03-01] MEDS: cefTRIAXone IV Push 1 GM VIAL. IVP SCH (13:05)
[2019-03-01] MEDS: AMINO AC 3%/ELECTROLYTE/GLYCER 1,000 ML IV SCH ×2 (13:05→23:55)
[2019-03-01] MEDS: LIDOCAINE (700MG/PATCH) PATCH. TD SCH (13:12)
[2019-03-01 14:21] VITALS: BP 133/53
[2019-03-01] MEDS ORDERED: LABETALOL 20 MG/4 ML DISP.SYRIN. IVP PRN (14:45)
--- NOTE | 2019-03-01 14:45 | PDOC2 ---
CARDIAC CONSULT DATE OF CONSULT Date of Consult DATE: 03/01/19 TIME: 14:20 REASON FOR CONSULT Reason for Consult: Cardiomyopathy/CVA REFERRING PHYSICIAN Referring Physician: Fullbright SOURCE Source: Chart review, Patient HISTORY OF PRESENT ILLNESS HISTORY OF PRESENT ILLNESS This is a 68 yo male admitted for stroke symptoms. He [place] at [facility] [place] and was noted with confusion and right sided weakness and slurred speech. After further imaging he was noted with acute CVA. Consult is fof cardiac disease with prior hx of ICM and CAD. It is unclear whom he follows up as far as cardiology. He is AOx2 and thinks that he is in [facility]. Denies any CP or SOA. No peripheral edema. He is currently NPO and no complains of any pain. No intermittent rhythm ectopies so far. He is a poor historian. PAST MEDICAL HISTORY Cardiovascular: CAD, HTN, Hyperlipidemia, Other (PAD) CENTRAL NERVOUS SYSTEM: CVA Musculoskeletal: Osteoarthritis Renal/: Chronic renal insuff Endocrine: Diabetes PAST SURGICAL HISTORY Past Surgical History: CABG, Other (Attempted LLE arterial bypass with thrombectomy and endarterectomy 2016 with eventual AKA) SOCIAL HISTORY Smoke: Quit CURRENT MEDICATIONS CURRENT MEDICATIONS Current Medications Medications (Trade) Dose Ordered Sig/Moses Route PRN Reason Start Time Stop Time Status Last Admin Dose Admin Aspirin (Aspirin Rectal Supp) 300 mg DAILY RC 03/01/19 09:00 03/01/19 13:04 Insulin Glargine (Lantus Syringe) 10 unit QHS SQ 02/28/19 21:00 02/28/19 21:46 Lidocaine (Lidoderm) 1 patch DAILY TD 03/01/19 13:00 03/01/19 13:12 ALLERGIES ALLERGIES: Coded Allergies: No Known Drug Allergies (Unverified , 07/29/16) ROS Review of System unreliable, poor historian PHYSICAL EXAM General: Alert, Cooperative, No acute distress, Other (Ox2) HEENT: Atraumatic, Mucous membr. moist/pink Lungs: Clear to auscultation, Normal air movement Heart: Regular rate (SR), Normal S1, Normal S2, No murmurs Abdomen: Soft, No tenderness Extremities: No cyanosis, No edema, Other (LAKA) Skin: No breakdown, No significant lesion Neuro: Sensation intact, Other (slowed speech) Psych/Mental Status: Other (flat affect) MUSCULOSKELETAL: Osteoarthritic changes both hands VITALS/I&O VITALS/I&O: Vital Signs Date Time Temp Pulse Resp B/P (MAP) Pulse Ox O2 Delivery O2 Flow Rate FiO2 03/01/19 11:34 98.2 65 16 119/50 (73) 96 Room Air 98.2 I & O 02/28/19 02/28/19 03/01/19 15:00 23:00 07:00 Intake Total 0 ml 0 ml Balance 0 ml 0 ml LABS Lab: Laboratory Tests Test 02/28/19 16:43 02/28/19 21:13 03/01/19 03:15 03/01/19 07:39 Glucose (Fingerstick) 132 mg/dL (70-99) H 121 mg/dL (70-99) H 152 mg/dL (70-99) H White Blood Count 9.2 x10^3/uL (4.0-11.0) Red Blood Count 4.27 x10^6/uL (4.30-5.70) L Hemoglobin 13.1 g/dL (13.0-17.5) Hematocrit 38.5 % (39.0-53.0) L Mean Corpuscular Volume 90 fL (79-100) Mean Corpuscular Hemoglobin 31 pg (25-35) Mean Corpuscular Hemoglobin Concent 34 g/dL (31-37) Red Cell Distribution Width 13.6 % (11.5-14.5) Platelet Count 281 x10^3/uL (140-400) Neutrophils (%) (Auto) 55 % (31-73) Lymphocytes (%) (Auto) 30 % (24-48) Monocytes (%) (Auto) 10 % (0-9) H Eosinophils (%) (Auto) 5 % (0-3) H Basophils (%) (Auto) 1 % (0-3) Neutrophils # (Auto) 5.0 x10^3/uL (1.8-7.7) Lymphocytes # (Auto) 2.7 x10^3/uL (1.0-4.8) Monocytes # (Auto) 0.9 x10^3/uL (0.0-1.1) Eosinophils # (Auto) 0.5 x10^3/uL (0.0-0.7) Basophils # (Auto) 0.1 x10^3/uL (0.0-0.2) Sodium Level 143 mmol/L (136-145) Potassium Level 4.2 mmol/L (3.5-5.1) Chloride Level 106 mmol/L (98-107) Carbon Dioxide Level 29 mmol/L (21-32) Anion Gap 8 (6-14) Blood Urea Nitrogen 19 mg/dL (8-26) Creatinine 1.2 mg/dL (0.7-1.3) Estimated GFR (Cockcroft-Gault) 60.0 BUN/Creatinine Ratio 16 (6-20) Glucose Level 159 mg/dL (70-99) H Calcium Level 9.0 mg/dL (8.5-10.1) Total Bilirubin 0.3 mg/dL (0.2-1.0) Aspartate Amino Transferase (AST) 18 U/L (15-37) Alanine Aminotransferase (ALT) 19 U/L (16-63) Alkaline Phosphatase 61 U/L (46-116) Total Protein 6.9 g/dL (6.4-8.2) Albumin 2.7 g/dL (3.4-5.0) L Albumin/Globulin Ratio 0.6 (1.0-1.7) L Triglycerides Level 240 mg/dL (0-150) H Cholesterol Level 219 mg/dL (0-200) H LDL Cholesterol, Calculated 145 mg/dL (0-100) H VLDL Cholesterol, Calculated 48 mg/dL (0-40) H Non-HDL Cholesterol Calculated 193 mg/dL (0-129) H HDL Cholesterol 26 mg/dL (40-60) L Cholesterol/HDL Ratio 8.4 Test 03/01/19 11:14 Glucose (Fingerstick) 146 mg/dL (70-99) H Laboratory Tests 03/01/19 03:15 Laboratory Tests 03/01/19 03:15 ECHOCARDIOGRAM ECHOCARDIOGRAM <Conclusion> The left ventricle is normal size. Left ventricle systolic function is moderate to severely decreased. The Ejection Fraction is estimated at 30%. There is borderline concentric left ventricular hypertrophy. There is no significant aortic valvular stenosis. Doppler and Color Flow revealed no significant aortic regurgitation. Doppler and Color Flow revealed mild mitral regurgitation. Doppler and Color Flow revealed mild tricuspid regurgitation. The PA pressure was estimated at 17 mmHg. DATE: 07/29/16 1437 ASSESSMENT/PLAN ASSESSMENT/PLAN 1. Acute CVA: possible embolic component. Neurology following 2. Hx of ICM: last known EF at 30% 2017. compensated 3. CAD: past CABG, clinically stable 4. PAD: attempted LLE revascularization with eventual AKA 5. HTN: controlled 6. HLP: not on goal 7. DM2 8. Known CKD3 9. Possible UTI Recommendations 1. TTE with bubble study 2. MCOT as an outpt if facility would allow. Monitor rhythm 3. ASA. Statin when able to take PO. 4. Suppertive care. NASEEM WILSON SOFTWARE QUALITY ASSURANCE SPECIALIST Mar 01, 2019 14:45
--- NOTE | 2019-03-01 15:52 | PDOC2 ---
PALLIATIVE CARE Palliative Care Note Palliative Care Patient more alert today. Follows simple commands. EEG results pending. ILIANA JAVIER Mar 01, 2019 15:52
--- NOTE | 2019-03-01 16:40 | CARD ---
MR#: [id number] Date of Study: 03/01/2019 Ordering Physician: HECTOR SAWYER, Referring Physician: HECTOR SAWYER, Tech: Ana Cristina Del Rosario APPROVED REPORT EXAM: Two-dimensional and M-mode echocardiogram with Doppler and color Doppler. INDICATION CVA/TIA Cardiac Disease: CAD Echo Enhancing Agent Indication: Rule Out Septal Defect Agent/Amount Used: Agitated Saline 10mL RISK FACTORS Hypertension Hyperlipidemia Diabetes 2D DIMENSIONS Left Atrium(2D)3.1 (1.6-4.0cm)IVSd1.3 (0.7-1.1cm) Aortic Root(2D)3.0 (2.0-3.7cm)LVDd4.9 (3.9-5.9cm) LVOT Diameter2.1 (1.8-2.4cm)PWd1.2 (0.7-1.1cm) LVDs3.5 (2.5-4.0cm)FS (%) 29.2 % SV63.1 mlLVEF(%)55.9 (>50%) Aortic Valve AoV Peak Ulises.107.3cm/sAoV VTI26.7cm AO Peak GR.4.6mmHgLVOT VTI 13.30cm AO Mean GR.3mmHg Mitral Valve MV E Ecziplzn99.4cm/sMV DECEL [id number] MV A Pfbhefhe65.4cm/sE/A Ratio0.8 TDI Lateral E' P. V8.17cm/sMedial E' P. V6.18cm/s E/Lateral E'8.6E/Medial E'11.4 Tricuspid Valve TR P. Lxagnkgf540eg/sRAP XTLIHKZX7muDf TR Peak Gr.24isQgGWNP11tpVy Pulmonary Vein S1 Xmsgyete30.2cm/sS2 Ftifmchv09.81cm/s D2 Ljttjbmp66.8cm/sPVa [id number] LEFT VENTRICLE The left ventricle is normal size. There is moderate concentric left ventricular hypertrophy. The lef t ventricular systolic function is mildly reduced. The Ejection Fraction is 45-50%. The inferior wall and basal to mid inferoseptal wall is moderately hypokinetic. Transmitral Doppler flow pattern is Gr lawson I-abnormal relaxation pattern. RIGHT VENTRICLE The right ventricle is normal size. There is normal right ventricular wall thickness. The right ventr icular systolic function is normal. ATRIA The left atrium size is normal. The right atrium size is normal. The interatrial septum is intact wit h no evidence for an atrial septal defect or patent foramen ovale as noted on 2-D or Doppler imaging. No evidence of right to left shunting on agitated saline study, although this study is SUBOPTIMAL. I f there is high clinical suspicion, consider LOREN. AORTIC VALVE The aortic valve is thickened but opens well. Doppler and Color Flow revealed no significant aortic r egurgitation. There is no significant aortic valvular stenosis. MITRAL VALVE The mitral valve is normal in structure and function. There is no evidence of mitral valve prolapse. There is no mitral valve stenosis. Doppler and Color Flow revealed no mitral valve regurgitation note d. TRICUSPID VALVE The tricuspid valve is normal in structure and function. Doppler and Color Flow revealed trace tricus pid regurgitation with an estimated PAP of 28 mmHg. There is no tricuspid valve prolapse or vegetatio n. There is no tricuspid valve stenosis. PULMONIC VALVE Doppler and Color Flow revealed no pulmonic valvular regurgitation. There is no pulmonic valvular shanita nosis. GREAT VESSELS The aortic root is normal in size. The IVC is normal in size and collapses >50% with inspiration. PERICARDIAL EFFUSION There is no evidence of significant pericardial effusion. Critical Notification Critical Value: No <Conclusion> The left ventricular systolic function is mildly reduced. The Ejection Fraction is 45-50%. The inferior wall and basal to mid inferoseptal wall is moderately hypokinetic. The interatrial septum is intact with no evidence for an atrial septal defect or patent foramen ovale as noted on 2-D or Doppler imaging. No evidence of right to left shunting on agitated saline st udy, although this study is SUBOPTIMAL. If there is high clinical suspicion, consider LOREN. Signed by : Moises Guadalupe, Electronically Approved : 03/01/2019 16:39:42
--- NOTE | 2019-03-01 17:53 | PDOC ---
PROGRESS NOTES Assessment Assessment Subacute left thalamocapsule junction infarct. Right side weakness. Slurred speech. Metabolic encephalopathy. Confusion. Lethargy. Left ICA 50-69% stenosis. HTN. HLD. DM. CAD s/p CABG. CHF, EF 45-50% Vit B12 deficiency. Dementia. 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 RECOMMENDATIONS/PLAN: Continue ASA 300 mg rectal, daily. Lipitor 40 mg HS. Vit B12 1000 mcg IM daily. Please consult Vascular Surgery for carotid A stenosis. OT/PT. Rehab. HISTORY OF THE PRESENT ILLNESS: This is a 68-year-old male patient admit with above medical diseases has new symptoms of mental status changes, lethargy, slurred speech and right sided weakness without known time of symptoms onset. He was brought to the ER of [facility] f or evaluation. His HCT reported some low densities. Patient is unable to provide information due to lethargy. Past Medical History Cardiovascular: CAD, HTN, Hyperlipidemia CENTRAL NERVOUS SYSTEM: CVA, Dementia Hepatobiliary: No pertinent hx Psych: No pertinent hx Rheumatologic: No pertinent hx Infectious disease: No pertinent hx Renal/: Chronic renal insuff Endocrine: Diabetes Past Surgical History CABG Family History Diabetes, Hypertension Social History Smoke: Quit ALCOHOL: none Drugs: None ALLERGY: Unknown MEDICATIONS: Refer to MAR REVIEW OF SYSTEMS: Constitutional: No malnutrition, weight loss, cachexia. Head: No recent traumatic brain or head injury. Skin: No edema, or rash. Ear: No infection. Eyes: No vision loss or color blindness. Nose: No bleeding or purulent discharges. Hearing: No hearing decrease. Neck: No injury. Cardiac: CAD, s/p CABG, HTN, HLD. Pulmonary: No COPD. GI: No GI ulcer, GI bleeding. Urinary/genital: UTI. Endocrinologic: Diabetes Mellitus. Skeletomuscular: Generalized weakness. Neurological: see HP. Psychiatric: Denies drug use/abuse. Otherwise, not [id number] review of systems. PHYSICAL EXAMINATION: General appearance is in subacute distress. HEENT: Normocephalic and nontraumatic. Eyes, nose, ears, and throat are unremarkable. Neck is supple. No lymphadenopathy. No crepitus. Cardiovascular: S1, S2, regular rate and rhythm. Pulmonary: Mildly decreased to auscultation bilaterally. Abdomen: Bowel sounds are positive. Extremities: No rash, lesions, or edema. NEUROLOGICAL EXAMINATION: Sleepiness but arousable. Not fully oriented to time, place and person. PERRL. EOMI not elicited due to not follow commands. CN: Unable to access. Muscle tone: within normal. Muscle strength: 4 DTR: 1-2 Plantar reflex: Not able to performed due to toe and BKA. Gait: Unable to walk. Sensory exam: no abnormal findings. No cerebellar signs elicited. F-T-N test not performed due to not follow commands. Objective Objective Vital Signs Date Time Temp Pulse Resp B/P (MAP) Pulse Ox O2 Delivery O2 Flow Rate FiO2 03/01/19 14:21 98.8 68 18 133/53 (79) 94 Room Air 98.8 Intake and Output 03/01/19 06:59 Intake Total 0 ml Balance 0 ml Intake Oral 0 ml # Voids 3 Vitals Signs Vitals VS - Last 72 Hours, by Label Date Time Temp Pulse Resp B/P (MAP) Pulse Ox O2 Delivery O2 Flow Rate FiO2 03/01/19 14:21 98.8 68 18 133/53 (79) 94 Room Air 98.8 03/01/19 11:34 98.2 65 16 119/50 (73) 96 Room Air 98.2 03/01/19 07:00 97.9 79 16 157/75 (102) 92 Room Air 97.9 03/01/19 03:20 98.0 17 130/59 (82) 91 Room Air 98.0 02/28/19 23:20 98.6 79 17 130/50 (76) 93 Room Air 98.6 02/28/19 20:15 Room Air 02/28/19 19:20 98.4 75 17 133/60 (84) 96 Room Air 98.4 02/28/19 11:22 98.4 65 20 141/55 (83) 94 Room Air 98.4 02/28/19 08:00 Room Air 02/28/19 07:00 97.6 63 18 135/63 (87) 96 Room Air 97.6 Laboratory Laboratory Laboratory Tests Test 02/28/19 21:13 03/01/19 03:15 03/01/19 07:39 03/01/19 11:14 Glucose (Fingerstick) 121 mg/dL (70-99) 152 mg/dL (70-99) 146 mg/dL (70-99) White Blood Count 9.2 x10^3/uL (4.0-11.0) Red Blood Count 4.27 x10^6/uL (4.30-5.70) Hemoglobin 13.1 g/dL (13.0-17.5) Hematocrit 38.5 % (39.0-53.0) Mean Corpuscular Volume 90 fL (79-100) Mean Corpuscular Hemoglobin 31 pg (25-35) Mean Corpuscular Hemoglobin Concent 34 g/dL (31-37) Red Cell Distribution Width 13.6 % (11.5-14.5) Platelet Count 281 x10^3/uL (140-400) Neutrophils (%) (Auto) 55 % (31-73) Lymphocytes (%) (Auto) 30 % (24-48) Monocytes (%) (Auto) 10 % (0-9) Eosinophils (%) (Auto) 5 % (0-3) Basophils (%) (Auto) 1 % (0-3) Neutrophils # (Auto) 5.0 x10^3/uL (1.8-7.7) Lymphocytes # (Auto) 2.7 x10^3/uL (1.0-4.8) Monocytes # (Auto) 0.9 x10^3/uL (0.0-1.1) Eosinophils # (Auto) 0.5 x10^3/uL (0.0-0.7) Basophils # (Auto) 0.1 x10^3/uL (0.0-0.2) Sodium Level 143 mmol/L (136-145) Potassium Level 4.2 mmol/L (3.5-5.1) Chloride Level 106 mmol/L (98-107) Carbon Dioxide Level 29 mmol/L (21-32) Anion Gap 8 (6-14) Blood Urea Nitrogen 19 mg/dL (8-26) Creatinine 1.2 mg/dL (0.7-1.3) Estimated GFR (Cockcroft-Gault) 60.0 BUN/Creatinine Ratio 16 (6-20) Glucose Level 159 mg/dL (70-99) Calcium Level 9.0 mg/dL (8.5-10.1) Total Bilirubin 0.3 mg/dL (0.2-1.0) Aspartate Amino Transf (AST/SGOT) 18 U/L (15-37) Alanine Aminotransferase (ALT/SGPT) 19 U/L (16-63) Alkaline Phosphatase 61 U/L (46-116) Total Protein 6.9 g/dL (6.4-8.2) Albumin 2.7 g/dL (3.4-5.0) Albumin/Globulin Ratio 0.6 (1.0-1.7) Triglycerides Level 240 mg/dL (0-150) Cholesterol Level 219 mg/dL (0-200) LDL Cholesterol, Calculated 145 mg/dL (0-100) VLDL Cholesterol, Calculated 48 mg/dL (0-40) Non-HDL Cholesterol Calculated 193 mg/dL (0-129) HDL Cholesterol 26 mg/dL (40-60) Cholesterol/HDL Ratio 8.4 Test 03/01/19 16:48 Glucose (Fingerstick) 148 mg/dL (70-99) Medication Medications Current Medications Aspirin (Aspirin Rectal Supp) 300 mg DAILY RC Last administered on 03/01/19at 13:04; Start 03/01/19 at 09:00 Atorvastatin Calcium (Lipitor) 40 mg QHS PO ; Start 03/01/19 at 21:00 Divalproex Sodium (Depakote Er) 250 mg QHS PO ; Start 02/28/19 at 21:00 Insulin Glargine (Lantus Syringe) 10 unit QHS SQ Last administered on 02/28/19at 21:46; Start 02/28/19 at 21:00 Labetalol HCl (Normodyne Iv Push) 10 mg PRN Q2HR PRN IVP HYPERTENSION; Start 03/01/19 at 14:45 Lidocaine (Lidoderm) 1 patch DAILY TD Last administered on 03/01/19at 13:12; Start 03/01/19 at 13:00 Miscellaneous (Lidoderm Patch Removal) 1 ea QHS MC ; Start 03/01/19 at 21:00 Comment Review of Relevant I have reviewed the following items chris (where applicable) has been applied. HECTOR SAWYER MD Mar 01, 2019 17:53
[2019-03-01 19:48] VITALS: BP 123/51
[2019-03-01] MEDS: PATCH REMOVAL. MC SCH (21:00)
[2019-03-01] MEDS: DIVALPROEX EXTENDED RELEASE 250 MG TAB.ER.24H. PO SCH (21:00)
[2019-03-01] MEDS: INSULIN GLARGINE SYRINGE. SQ SCH (21:00)
[2019-03-01] MEDS: ATORVASTATIN CALCIUM 40 MG TABLET. PO SCH (21:00)
[2019-03-01 23:42] VITALS: BP 121/54
[2019-03-02 03:18] LABS: BASO # 0.1 x10^3/uL (0.0-0.2); BASO % 1 % (0-3); EOS # 0.5 x10^3/uL (0.0-0.7); EOS % 6 % (0-3); HEMATOCRIT 39.2 % (39.0-53.0); HEMOGLOBIN 13.3 g/dL (13.0-17.5); LYMPH # 2.8 x10^3/uL (1.0-4.8); LYMPH % 31 % (24-48); MEAN CORPUSCULAR HEMOGLOBIN 30 pg (25-35); MEAN CORPUSCULAR HGB CONC 34 g/dL (31-37); MEAN CORPUSCULAR VOLUME 89 fL (79-100); MONO # 0.9 x10^3/uL (0.0-1.1); MONO % 10 % (0-9); NEUT # 4.8 x10^3/uL (1.8-7.7); NEUT % 53 % (31-73); PLATELET COUNT 290 x10^3/uL (140-400); RED BLOOD COUNT 4.39 x10^6/uL (4.30-5.70); RED CELL DISTRIBUTION WIDTH 13.6 % (11.5-14.5); WHITE BLOOD COUNT 9.1 x10^3/uL (4.0-11.0)
[2019-03-02 03:35] LABS: ALBUMIN 2.7 g/dL (3.4-5.0); ALBUMIN/GLOBULIN RATIO 0.6 (1.0-1.7); CALCIUM 9.1 mg/dL (8.5-10.1); CREATININE 1.1 mg/dL (0.7-1.3); GFR 66.4; POTASSIUM 4.2 mmol/L (3.5-5.1); TOTAL BILIRUBIN 0.3 mg/dL (0.2-1.0); TOTAL PROTEIN 6.9 g/dL (6.4-8.2)
[2019-03-02 03:53] VITALS: BP 127/49
[2019-03-02 07:00] VITALS: BP 158/86
[2019-03-02 07:16] LABS: HEMOGLOBIN A1C 8.4 % (4.8-5.6)
[2019-03-02] MEDS: INSULIN LISPRO 300 UNITS/3 ML VIAL. SQ SCH ×3 (08:00→17:00)
--- NOTE | 2019-03-02 10:10 | PDOC ---
PROGRESS NOTES History of Present Illness History of Present Illness VTE Prophylaxis Ordered VTE Prophylaxis Devices: No VTE Pharmacological Prophylaxi: Yes Assessment/Plan Assessment/Plan acute new right sided weakness, UTI Acute ischemic infarct at the left thalamocapsular junction. Additional few foci of high intensity signal DWI without corresponding ADC signal, nonspecific but small acute infarcts not ruled out. 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 White matter changes likely secondary to chronic microvascular ischemic disease. CVA, acute on chronic, timeline > 8 hours, CT brain C/W chronic and subacute infarcts Acute metabolic encephalopathy Dm 1 with Hyperglycemia. Vasomotor nephropathy, Diabetes with severe chronic atherosclerosis, multilevel. Cardiomyopathy The Ejection Fraction is estimated at 30%. 2017 Chronic systolic HF PAD HX splenic infarcts, old ON US 03/01 no hemodynamically significant right-sided carotid stenosis. There is moderate (50-69 percent) stenosis involving the left internal carotid artery with elevated end-diastolic velocity in the distal internal carotid artery. Dm2, on insulin, NPO add PPN Neuro consult PENDING CARDIOLOGY CONSULT poss UTI, + LE, dirty catch, new lethargy, IV abx PT and OT and Speech admit VASCULAR SURGERY CONSULTED IV ROCEPHIN Discharge Recommendations * Senior Care Unit Treatment Frequency (Days/Week) * 5x over 7 days x2 wks 36 MIN PT EXAM, CHART REVIEW, > 50% OF TIME SPENT WITH EXAM, CHART REVIEW, PT CARE COORDINATION Vitals Vitals Vital Signs Date Time Temp Pulse Resp B/P (MAP) Pulse Ox O2 Delivery O2 Flow Rate FiO2 03/02/19 07:00 98.3 78 18 158/86 (110) 96 Room Air 98.3 Physical Exam General: Alert, Cooperative, No acute distress, Other (Ox2) Heart: Regular rate (SR), Normal S1, Normal S2, No murmurs Lungs: Clear Abdomen: Normal bowel sounds, Soft, No tenderness Extremities: No cyanosis, No edema, Other (LEFT AKA) Skin: No breakdown, No significant lesion Labs LABS Ultrasound carotid Doppler 03/01/2019 5:18 AM INDICATION: Acute infarct measuring 1.3 cm on the left. COMPARISON: None available TECHNIQUE: Sonographic imaging of the carotid vasculature was performed utilizing grayscale, color Doppler and spectral waveform analysis. FINDINGS: (All velocities are measured cm per second) Right carotid: Plaque is noted throughout the common carotid artery. Right vertebral artery is not well visualized. Peak systolic velocity (cm per second): Proximal common carotid artery: 75 Middle common carotid artery: 87 Distal common carotid artery: 79 Proximal internal carotid artery: 81 Middle internal carotid artery: 115 Distal internal carotid artery: 109 End-diastolic velocity: 24 External carotid artery: 235 Internal carotid artery/common carotid artery ratio: 0.9-1.3 Vertebral artery: Not visualized Left carotid: Plaque is identified throughout the common carotid artery and proximal left internal carotid artery with less than 50 percent luminal stenosis. Peak systolic velocity: Proximal common carotid artery: 104 Middle common carotid artery: 108 Distal common carotid artery: 107 Proximal internal carotid artery: 79 Middle internal carotid artery: 100 Distal internal carotid artery: 137 End-diastolic velocity: 47 External carotid artery: 166 Internal carotid artery/common carotid artery ratio: 0.7-1.2 Vertebral artery: Antegrade flow IMPRESSION: 1. There is no hemodynamically significant right-sided carotid stenosis. There is moderate (50-69 percent) stenosis involving the left internal carotid artery with elevated end-diastolic velocity in the distal internal carotid artery. 2. Right vertebral artery is not visualized. Antegrade flow noted in the left vertebral artery. 3. Evaluation of the carotid vasculature and measurements for luminal stenosis was performed utilizing NASCET criteria. Electronically signed by: Sudarshan Delaney MD (03/01/2019 8:36 AM) [facility] DICTATED and SIGNED BY: SUDARSHAN DELANEY MD DATE: 03/01/19 0836 Laboratory Tests Test 03/01/19 11:14 03/01/19 16:48 03/01/19 21:41 03/02/19 02:55 Glucose (Fingerstick) 146 mg/dL (70-99) 148 mg/dL (70-99) 151 mg/dL (70-99) White Blood Count 9.1 x10^3/uL (4.0-11.0) Red Blood Count 4.39 x10^6/uL (4.30-5.70) Hemoglobin 13.3 g/dL (13.0-17.5) Hematocrit 39.2 % (39.0-53.0) Mean Corpuscular Volume 89 fL (79-100) Mean Corpuscular Hemoglobin 30 pg (25-35) Mean Corpuscular Hemoglobin Concent 34 g/dL (31-37) Red Cell Distribution Width 13.6 % (11.5-14.5) Platelet Count 290 x10^3/uL (140-400) Neutrophils (%) (Auto) 53 % (31-73) Lymphocytes (%) (Auto) 31 % (24-48) Monocytes (%) (Auto) 10 % (0-9) Eosinophils (%) (Auto) 6 % (0-3) Basophils (%) (Auto) 1 % (0-3) Neutrophils # (Auto) 4.8 x10^3/uL (1.8-7.7) Lymphocytes # (Auto) 2.8 x10^3/uL (1.0-4.8) Monocytes # (Auto) 0.9 x10^3/uL (0.0-1.1) Eosinophils # (Auto) 0.5 x10^3/uL (0.0-0.7) Basophils # (Auto) 0.1 x10^3/uL (0.0-0.2) Sodium Level 139 mmol/L (136-145) Potassium Level 4.2 mmol/L (3.5-5.1) Chloride Level 104 mmol/L (98-107) Carbon Dioxide Level 27 mmol/L (21-32) Anion Gap 8 (6-14) Blood Urea Nitrogen 23 mg/dL (8-26) Creatinine 1.1 mg/dL (0.7-1.3) Estimated GFR (Cockcroft-Gault) 66.4 BUN/Creatinine Ratio 21 (6-20) Glucose Level 167 mg/dL (70-99) Calcium Level 9.1 mg/dL (8.5-10.1) Total Bilirubin 0.3 mg/dL (0.2-1.0) Aspartate Amino Transf (AST/SGOT) 17 U/L (15-37) Alanine Aminotransferase (ALT/SGPT) 19 U/L (16-63) Alkaline Phosphatase 60 U/L (46-116) Total Protein 6.9 g/dL (6.4-8.2) Albumin 2.7 g/dL (3.4-5.0) Albumin/Globulin Ratio 0.6 (1.0-1.7) Test 03/02/19 09:27 Glucose (Fingerstick) 167 mg/dL (70-99) Assessment and Plan Assessmemt and Plan * Bedside Swallow Eval. SHOT BAGGER * Janee Galvan MA, L/CCC-SHOT BAGGER Medical Dx. * Pt admitted w/ new R-sided weakness, confusion & slurred speech, L thalamic CVA. PMH: CVA, dementia, R-sided weakness, Diabetes-Type I, High Cholesterol, Heart Disease, Hypertension, Renal Disease, L AKA. CT Head 02/28/19: 1. Rounded focus of low attenuation at the left thalamocapsular junction which was not present on the 07/28/2016 comparison. This is most compatible with an age indeterminant candy puller infarct that could be accurately aged by MRI as deemed clinically necessary. 2. Areas of low attenuation involving the medial right cerebellar hemisphere as well as the left paramedian frontal lobe. The abnormality involving the left frontal lobe does appear to have been present on the 2016 comparison. The cerebellar hemisphere finding is new but exhibits an appearance most suggestive of encephalomalacia from a remote infarct. Again, this could be more accurately aged by MRI. 3. No acute intracranial hemorrhage. No mass effect, midline shift or hydrocephalus. Current Chest Xray * 02/28/19: Bibasilar volume loss. Reason For Referral * acute CVA Relevant Precautions * Aspiration O2 Requirements * Room Air Dentition * Edentulous Behavioral Characteristics * Alert Current Diet Consistency * NPO Current Liquid Consistency * NPO Other Related Factors * Lmtd verbal output. Pain Score * 3 Pain Scale Type * Descriptive * PAINAD Pain Location * "My butt hurts" Pain Quality * unable to describe Pain Intervention * Nurse Notified Intelligibility Words * Consonant Distortion * Mildly Impaired Voice Quality * Hoarse Voice Pitch * Monopitch Voice Intensity * Mild-moderately reduced Respiratory Function * Impaired for Speech Additional Information * Low intensity, mild-mod hoarse phonation w/imprecise artic. Lingual Strength/ROM * Mildly Impaired * Moderately Impaired Labial Strength/ROM * Mildly Impaired Volitional Cough/Throat Clear * Moderately Impaired Additional Information - Oral Motor * Reduced rate, coordination of oral mvmts. 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 Presented Via * cup Oral Phase Summary - Honey Thick * Mild impairment Oral Containment - Honey Thick * Within Functional Limits Bolus Prep/A-P Transport - Honey Thick * Mildly impaired * Moderately impaired * Increased transport time Pharyngeal Stage Summary - Honey * Moderate impairment Pharyngeal Swallow Initiation - Honey Thick * Moderate Delay (3-5 sec) Hyolaryngeal Excursion - Honey Thick * Mildly Reduced * Moderately Reduced * Multiple Swallows Signs of Aspiration - Honey Thick * Throat Clear * Wet Phonation Additional Information - Pharyngeal Phase - Honey Thick Liq * Wet phonation and subtle throat clear p.+2/2 trials, leading to weak cough p.2nd trial. Oropharyngeal delay evident w/pt requiring 4-6 sec to produce swallow which was weak and incomplete per palp. 2 additional swallows noted per each of 2 boluses w/delay between them. Oral Phase Summary - Puree * Moderate impairment Oral Containment - Puree * Within Functional Limits Bolus Prep/A-P Transport - Puree * Moderately impaired * Increased transport time Oral Residue - Puree * Mild Pharyngeal Stage Summary - Puree * Moderate impairment Pharyngeal Swallow Initiation - Puree * Severe Delay (5+ sec) Hyolaryngeal Excursion - Puree * Mildly Reduced * Moderately Reduced * Multiple Swallows Signs of Aspiration - Puree * Throat Clear * Wet Phonation Additional Information - Pharyngeal Phase - Puree * Pt required 20-25 sec to produce swallow on each of 2 trials. Pt acknowledged struggle/work of initiating swallow when asked. Subtle change in phonation and throat clear x1 noted p.swallow c/w aspiration. 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 Currently, oropharyngeal delay and reduced hyolaryngeal excursion noted w/trials of puree and honey thick. S/s aspiration also present p.limited trials as outlined above. IMPRESSIONS: Moderate oropharyngeal dysphagia w/oropharyngeal delay and weakness noted w/lmtd trials of puree and honey thick liquids. S/s aspiration noted w/both consistencies. No safe consistency identified. NPO indicated but unclear how long this will be necc. Will f/u for progress over next few days. Videoswallow not indicated at this time given sig delay in swallow, falguni w/puree. RECOMMENDATIONS: NPO meds and nutrition. Oral care. Precautions posted. DW Dr Fernández. Skilled Services Needed * Dysphagia Tx Patient Stated Goal * Does not state Facilities Custodian Swallow Goal * Safe intake of least restrictive diet consistency. Swallow Goal 1 * Honey w/o s/s Aspiration Swallow Goal 2 * Puree w/o s/s Aspiration Swallow Goal 3 * Additional goals p.meeting goals 1 & 2 Pt. Agrees with POC * Decreased Mentation Rehab Potential - To Achieve Goals * Fair Discharge Recommendations * Senior Care Unit Treatment Frequency (Days/Week) * 5x over 7 days x2 wks Comment Review of Relevant I have reviewed the following items chris (where applicable) has been applied. Labs Laboratory Tests Test 02/28/19 10:48 02/28/19 16:43 02/28/19 21:13 03/01/19 03:15 Glucose (Fingerstick) 127 mg/dL (70-99) 132 mg/dL (70-99) 121 mg/dL (70-99) White Blood Count 9.2 x10^3/uL (4.0-11.0) Red Blood Count 4.27 x10^6/uL (4.30-5.70) Hemoglobin 13.1 g/dL (13.0-17.5) Hematocrit 38.5 % (39.0-53.0) Mean Corpuscular Volume 90 fL (79-100) Mean Corpuscular Hemoglobin 31 pg (25-35) Mean Corpuscular Hemoglobin Concent 34 g/dL (31-37) Red Cell Distribution Width 13.6 % (11.5-14.5) Platelet Count 281 x10^3/uL (140-400) Neutrophils (%) (Auto) 55 % (31-73) Lymphocytes (%) (Auto) 30 % (24-48) Monocytes (%) (Auto) 10 % (0-9) Eosinophils (%) (Auto) 5 % (0-3) Basophils (%) (Auto) 1 % (0-3) Neutrophils # (Auto) 5.0 x10^3/uL (1.8-7.7) Lymphocytes # (Auto) 2.7 x10^3/uL (1.0-4.8) Monocytes # (Auto) 0.9 x10^3/uL (0.0-1.1) Eosinophils # (Auto) 0.5 x10^3/uL (0.0-0.7) Basophils # (Auto) 0.1 x10^3/uL (0.0-0.2) Sodium Level 143 mmol/L (136-145) Potassium Level 4.2 mmol/L (3.5-5.1) Chloride Level 106 mmol/L (98-107) Carbon Dioxide Level 29 mmol/L (21-32) Anion Gap 8 (6-14) Blood Urea Nitrogen 19 mg/dL (8-26) Creatinine 1.2 mg/dL (0.7-1.3) Estimated GFR (Cockcroft-Gault) 60.0 BUN/Creatinine Ratio 16 (6-20) Glucose Level 159 mg/dL (70-99) Hemoglobin A1c 8.4 % (4.8-5.6) Calcium Level 9.0 mg/dL (8.5-10.1) Total Bilirubin 0.3 mg/dL (0.2-1.0) Aspartate Amino Transf (AST/SGOT) 18 U/L (15-37) Alanine Aminotransferase (ALT/SGPT) 19 U/L (16-63) Alkaline Phosphatase 61 U/L (46-116) Total Protein 6.9 g/dL (6.4-8.2) Albumin 2.7 g/dL (3.4-5.0) Albumin/Globulin Ratio 0.6 (1.0-1.7) Triglycerides Level 240 mg/dL (0-150) Cholesterol Level 219 mg/dL (0-200) LDL Cholesterol, Calculated 145 mg/dL (0-100) VLDL Cholesterol, Calculated 48 mg/dL (0-40) Non-HDL Cholesterol Calculated 193 mg/dL (0-129) HDL Cholesterol 26 mg/dL (40-60) Cholesterol/HDL Ratio 8.4 Test 03/01/19 07:39 03/01/19 11:14 03/01/19 16:48 03/01/19 21:41 Glucose (Fingerstick) 152 mg/dL (70-99) 146 mg/dL (70-99) 148 mg/dL (70-99) 151 mg/dL (70-99) Test 03/02/19 02:55 03/02/19 09:27 White Blood Count 9.1 x10^3/uL (4.0-11.0) Red Blood Count 4.39 x10^6/uL (4.30-5.70) Hemoglobin 13.3 g/dL (13.0-17.5) Hematocrit 39.2 % (39.0-53.0) Mean Corpuscular Volume 89 fL (79-100) Mean Corpuscular Hemoglobin 30 pg (25-35) Mean Corpuscular Hemoglobin Concent 34 g/dL (31-37) Red Cell Distribution Width 13.6 % (11.5-14.5) Platelet Count 290 x10^3/uL (140-400) Neutrophils (%) (Auto) 53 % (31-73) Lymphocytes (%) (Auto) 31 % (24-48) Monocytes (%) (Auto) 10 % (0-9) Eosinophils (%) (Auto) 6 % (0-3) Basophils (%) (Auto) 1 % (0-3) Neutrophils # (Auto) 4.8 x10^3/uL (1.8-7.7) Lymphocytes # (Auto) 2.8 x10^3/uL (1.0-4.8) Monocytes # (Auto) 0.9 x10^3/uL (0.0-1.1) Eosinophils # (Auto) 0.5 x10^3/uL (0.0-0.7) Basophils # (Auto) 0.1 x10^3/uL (0.0-0.2) Sodium Level 139 mmol/L (136-145) Potassium Level 4.2 mmol/L (3.5-5.1) Chloride Level 104 mmol/L (98-107) Carbon Dioxide Level 27 mmol/L (21-32) Anion Gap 8 (6-14) Blood Urea Nitrogen 23 mg/dL (8-26) Creatinine 1.1 mg/dL (0.7-1.3) Estimated GFR (Cockcroft-Gault) 66.4 BUN/Creatinine Ratio 21 (6-20) Glucose Level 167 mg/dL (70-99) Calcium Level 9.1 mg/dL (8.5-10.1) Total Bilirubin 0.3 mg/dL (0.2-1.0) Aspartate Amino Transf (AST/SGOT) 17 U/L (15-37) Alanine Aminotransferase (ALT/SGPT) 19 U/L (16-63) Alkaline Phosphatase 60 U/L (46-116) Total Protein 6.9 g/dL (6.4-8.2) Albumin 2.7 g/dL (3.4-5.0) Albumin/Globulin Ratio 0.6 (1.0-1.7) Glucose (Fingerstick) 167 mg/dL (70-99) Laboratory Tests Test 03/01/19 11:14 03/01/19 16:48 03/01/19 21:41 03/02/19 02:55 Glucose (Fingerstick) 146 mg/dL (70-99) 148 mg/dL (70-99) 151 mg/dL (70-99) White Blood Count 9.1 x10^3/uL (4.0-11.0) Red Blood Count 4.39 x10^6/uL (4.30-5.70) Hemoglobin 13.3 g/dL (13.0-17.5) Hematocrit 39.2 % (39.0-53.0) Mean Corpuscular Volume 89 fL (79-100) Mean Corpuscular Hemoglobin 30 pg (25-35) Mean Corpuscular Hemoglobin Concent 34 g/dL (31-37) Red Cell Distribution Width 13.6 % (11.5-14.5) Platelet Count 290 x10^3/uL (140-400) Neutrophils (%) (Auto) 53 % (31-73) Lymphocytes (%) (Auto) 31 % (24-48) Monocytes (%) (Auto) 10 % (0-9) Eosinophils (%) (Auto) 6 % (0-3) Basophils (%) (Auto) 1 % (0-3) Neutrophils # (Auto) 4.8 x10^3/uL (1.8-7.7) Lymphocytes # (Auto) 2.8 x10^3/uL (1.0-4.8) Monocytes # (Auto) 0.9 x10^3/uL (0.0-1.1) Eosinophils # (Auto) 0.5 x10^3/uL (0.0-0.7) Basophils # (Auto) 0.1 x10^3/uL (0.0-0.2) Sodium Level 139 mmol/L (136-145) Potassium Level 4.2 mmol/L (3.5-5.1) Chloride Level 104 mmol/L (98-107) Carbon Dioxide Level 27 mmol/L (21-32) Anion Gap 8 (6-14) Blood Urea Nitrogen 23 mg/dL (8-26) Creatinine 1.1 mg/dL (0.7-1.3) Estimated GFR (Cockcroft-Gault) 66.4 BUN/Creatinine Ratio 21 (6-20) Glucose Level 167 mg/dL (70-99) Calcium Level 9.1 mg/dL (8.5-10.1) Total Bilirubin 0.3 mg/dL (0.2-1.0) Aspartate Amino Transf (AST/SGOT) 17 U/L (15-37) Alanine Aminotransferase (ALT/SGPT) 19 U/L (16-63) Alkaline Phosphatase 60 U/L (46-116) Total Protein 6.9 g/dL (6.4-8.2) Albumin 2.7 g/dL (3.4-5.0) Albumin/Globulin Ratio 0.6 (1.0-1.7) Test 03/02/19 09:27 Glucose (Fingerstick) 167 mg/dL (70-99) Medications Current Medications Aspirin (Aspirin Rectal Supp) 300 mg 1X ONCE UT Last administered on 02/28/19at 01:30; Start 02/28/19 at 01:30; Stop 02/28/19 at 01:31; Status DC Ondansetron HCl (Zofran) 4 mg PRN Q8HRS PRN IV NAUSEA/VOMITING; Start 02/28/19 at 01:15; Stop 03/01/19 at 01:14; Status DC Insulin Human Lispro (HumaLOG) 0-5 UNITS TIDWMEALS SQ ; Start 02/28/19 at 08:00; Stop 02/28/19 at 09:28; Status DC Dextrose (Dextrose 50%-Water Syringe) 12.5 gm PRN Q15MIN PRN IV SEE COMMENTS; Start 02/28/19 at 01:15; Stop 02/28/19 at 05:38; Status DC Dextrose (Dextrose 50%-Water Syringe) 12.5 gm PRN Q15MIN PRN IV SEE COMMENTS; Start 02/28/19 at 05:30; Stop 02/28/19 at 09:27; Status DC Amino Acids/ Glycerin/ Electrolytes 1,000 ml @ 80 mls/hr [id number] IV Last administered on 03/01/19at 23:55; Start 02/28/19 at 10:00 Aspirin (Aspirin Rectal Supp) 300 mg DAILY RC Last administered on 03/01/19 13:04; Start 03/01/19 at 09:00 Divalproex Sodium (Depakote Er) 250 mg QHS PO ; Start 02/28/19 at 21:00 Insulin Human Lispro (HumaLOG) 0-9 UNITS TIDWMEALS SQ ; Start 02/28/19 at 12:00 Dextrose (Dextrose 50%-Water Syringe) 12.5 gm PRN Q15MIN PRN IV SEE COMMENTS; Start 02/28/19 at 09:30 Insulin Glargine (Lantus Syringe) 10 unit QHS SQ Last administered on 03/01/19 21:00; Start 02/28/19 at 21:00 Ceftriaxone Sodium (Rocephin) 1 gm Q24H IVP Last administered on 03/01/19 13:05; Start 02/28/19 at 10:00 Cyanocobalamin (Vitamin B-12) 1,000 mcg 1X ONCE IM Last administered on 02/28/19 13:12; Start 02/28/19 at 13:00; Stop 02/28/19 at 13:01; Status DC Atorvastatin Calcium (Lipitor) 40 mg QHS PO ; Start 03/01/19 at 21:00 Lidocaine (Lidoderm) 1 patch DAILY TD Last administered on 03/01/19 13:12; Start 03/01/19 at 13:00 Miscellaneous (Lidoderm Patch Removal) 1 ea QHS MC Last administered on 03/01/19at 21:00; Start 03/01/19 at 21:00 Labetalol HCl (Normodyne Iv Push) 10 mg PRN Q2HR PRN IVP HYPERTENSION; Start 03/01/19 at 14:45 Active Scripts Active Reported Tylenol (Acetaminophen) 325 Mg Tablet 2 Tab PO PRN Q8HRS PRN Omeprazole 20 Mg Capsule.dr 1 Cap PO DAILY Mucinex (Guaifenesin) 600 Mg Tablet.er 1 Tab PO PRN BID PRN Imodium A-D (Loperamide HCl) 2 Mg Capsule 2 Mg PO PRN Q6HRS PRN Mirtazapine 15 Mg Tablet 7.5 Mg PO QHS Glucose Gel (Dextrose) 38 Gm Gel..gram. 38 Gm PO PRN Q15MIN PRN Glucagon Emergency Kit (Glucagon,Human Recombinant) 1 Mg Kit 1 Mg IM PRN Depakote Er (Divalproex Sodium) 250 Mg Tab.er.24h 1 Tab PO QHS Aspirin 325 Mg Tablet 1 Tab PO DAILY Zofran (Ondansetron Hcl) 4 Mg Tablet 1 Tab PO Q8HRS PRN Lisinopril 20 Mg Tablet 1 Tab PO BID Levemir (Insulin Detemir) 100 Unit/1 Ml Vial 45 Unit SQ QHS Aspirin 300 Mg Supp.rect 300 Mg RC DAILY Hydrocodone-Apap 5-325 (Hydrocodone Bit/Acetaminophen) 1 Each Tablet 1 Tab PO Q4HRS PRN Vitals/I & O Vital Sign - Last 24 Hours 03/01/19 03/01/19 03/01/19 03/01/19 11:34 14:21 19:48 20:20 Temp 98.2 98.8 98.1 98.2 98.8 98.1 Pulse 65 68 69 Resp 16 18 18 B/P (MAP) 119/50 (73) 133/53 (79) 123/51 (75) Pulse Ox 96 94 93 O2 Delivery Room Air Room Air Room Air Room Air 03/01/19 03/02/19 03/02/19 23:42 03:53 07:00 Temp 98.3 98.4 98.3 98.3 98.4 98.3 Pulse 79 69 78 Resp 18 18 18 B/P (MAP) 121/54 (76) 127/49 (75) 158/86 (110) Pulse Ox 93 97 96 O2 Delivery Room Air Room Air Room Air SHANIKA FERNÁNDEZ MD Mar 02, 2019 10:10
[2019-03-02 11:09] VITALS: BP 152/53
--- NOTE | 2019-03-02 11:49 | PDOC ---
CARDIO Progress Notes Date and Time Date of Service 03/02/19 Time of Evaluation 1140 Subjective Subjective: No Chest Pain, No shortness of breath Vitals Vitals Vital Signs Date Time Temp Pulse Resp B/P (MAP) Pulse Ox O2 Delivery O2 Flow Rate FiO2 03/02/19 11:09 99.0 71 18 152/53 (86) 96 Room Air 99.0 Weight Weight [ ] Input and Output Intake and Output Intake and Output 03/02/19 07:00 # Voids 4 Laboratory Labs Laboratory Tests Test 03/01/19 16:48 03/01/19 21:41 03/02/19 02:55 03/02/19 09:27 Glucose (Fingerstick) 148 mg/dL (70-99) 151 mg/dL (70-99) 167 mg/dL (70-99) White Blood Count 9.1 x10^3/uL (4.0-11.0) Red Blood Count 4.39 x10^6/uL (4.30-5.70) Hemoglobin 13.3 g/dL (13.0-17.5) Hematocrit 39.2 % (39.0-53.0) Mean Corpuscular Volume 89 fL (79-100) Mean Corpuscular Hemoglobin 30 pg (25-35) Mean Corpuscular Hemoglobin Concent 34 g/dL (31-37) Red Cell Distribution Width 13.6 % (11.5-14.5) Platelet Count 290 x10^3/uL (140-400) Neutrophils (%) (Auto) 53 % (31-73) Lymphocytes (%) (Auto) 31 % (24-48) Monocytes (%) (Auto) 10 % (0-9) Eosinophils (%) (Auto) 6 % (0-3) Basophils (%) (Auto) 1 % (0-3) Neutrophils # (Auto) 4.8 x10^3/uL (1.8-7.7) Lymphocytes # (Auto) 2.8 x10^3/uL (1.0-4.8) Monocytes # (Auto) 0.9 x10^3/uL (0.0-1.1) Eosinophils # (Auto) 0.5 x10^3/uL (0.0-0.7) Basophils # (Auto) 0.1 x10^3/uL (0.0-0.2) Sodium Level 139 mmol/L (136-145) Potassium Level 4.2 mmol/L (3.5-5.1) Chloride Level 104 mmol/L (98-107) Carbon Dioxide Level 27 mmol/L (21-32) Anion Gap 8 (6-14) Blood Urea Nitrogen 23 mg/dL (8-26) Creatinine 1.1 mg/dL (0.7-1.3) Estimated GFR (Cockcroft-Gault) 66.4 BUN/Creatinine Ratio 21 (6-20) Glucose Level 167 mg/dL (70-99) Calcium Level 9.1 mg/dL (8.5-10.1) Total Bilirubin 0.3 mg/dL (0.2-1.0) Aspartate Amino Transf (AST/SGOT) 17 U/L (15-37) Alanine Aminotransferase (ALT/SGPT) 19 U/L (16-63) Alkaline Phosphatase 60 U/L (46-116) Total Protein 6.9 g/dL (6.4-8.2) Albumin 2.7 g/dL (3.4-5.0) Albumin/Globulin Ratio 0.6 (1.0-1.7) Physical Exam HEENT: Neck Supple W Full Motion LUNGS: Clear to Auscultation, Other (diminished bases) Heart: S1S2, RRR, no gallops Extremities: Other (left AKA) Neurology: alert, follow commands, other (expressive aphasia ) Assessment Assessment 1. Acute CVA: possible embolic component. Bubble study negative. Neurology following 2. Hx of ICM: last known EF at 30% 2016. Echo showed LV improvement with EF 45- 50%. 3. CAD: past CABG, clinically stable 4. PAD; s/p L AKA 5. Hypertension; controlled 6. Hyperlipidemia; statin therapy 7. Diabetes, II; as per PCP 8. CKD; Cr stable 9. UTI Recommendations Outpatient event monitor if nursing facility agreeable ASA VT. Statin when able to take PO. PT/OT. Supportive care from a CV standpoint RUSSELL LAWLER APRN Mar 02, 2019 11:49
[2019-03-02] MEDS: LIDOCAINE (700MG/PATCH) PATCH. TD SCH (12:40)
[2019-03-02] MEDS: cefTRIAXone IV Push 1 GM VIAL. IVP SCH (12:40)
[2019-03-02] MEDS: AMINO AC 3%/ELECTROLYTE/GLYCER 1,000 ML IV SCH ×2 (12:41→21:17)
[2019-03-02] MEDS: ASPIRIN RECTAL 300 MG SUPP. RC SCH (12:41)
[2019-03-02] MEDS ORDERED: FLU VAX QS 2019-20 (36MOS+)/PF 0.5 ML SYRINGE. VAX IM ONE (13:00)
[2019-03-02] MEDS ORDERED: CONTRAST GIVEN. MC PRN (15:00)
[2019-03-02] MEDS ORDERED: IOHEXOL 350 MG/ML 100 ML VIAL. IV ONE (15:00)
--- NOTE | 2019-03-02 15:28 | PDOC ---
Provider Note Provider Note Vascular consult note dictated by Dr. Chavez 68 year-old male with history of left sided CVA as well as acute CVA. He had carotid duplex done that shows mild disease. He is mostly nonverbal and not able to participate much in history or exam. He does have left BKA, his right sided motor function is intact. He has mild carotid disease based on duplex, however with his history of left sided CVA will get CTA of neck to pursue further. We will follow up with results. YUNI ESCOBAR Mar 02, 2019 15:28
--- NOTE | 2019-03-02 16:12 | PDOC ---
PROGRESS NOTES Assessment Assessment Subacute left thalamocapsule junction infarct. Right side weakness. Slurred speech. Metabolic encephalopathy. Confusion. Lethargy. Left ICA 50-69% stenosis. HTN. HLD. DM. CAD s/p CABG. CHF, EF 45-50% Vit B12 deficiency. Dementia. 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 RECOMMENDATIONS/PLAN: Continue ASA 300 mg rectal, daily. Lipitor 40 mg HS. Vit B12 1 mg IM daily. Consulted Vascular Surgery for carotid A stenosis. OT/PT. Rehab as needed. HISTORY OF THE PRESENT ILLNESS: This is a 68-year-old male patient admit with above medical diseases has new symptoms of mental status changes, lethargy, slurred speech and right sided weakness without known time of symptoms onset. He was brought to the ER of [facility] for evaluation. His HCT reported some low densities. Patient is unable to provide information due to lethargy. Past Medical History Cardiovascular: CAD, HTN, Hyperlipidemia CENTRAL NERVOUS SYSTEM: CVA, Dementia Hepatobiliary: No pertinent hx Psych: No pertinent hx Rheumatologic: No pertinent hx Infectious disease: No pertinent hx Renal/: Chronic renal insuff Endocrine: Diabetes Past Surgical History CABG Family History Diabetes, Hypertension Social History Smoke: Quit ALCOHOL: none Drugs: None ALLERGY: Unknown MEDICATIONS: Refer to MAR REVIEW OF SYSTEMS: Constitutional: No malnutrition, weight loss, cachexia. Head: No recent traumatic brain or head injury. Skin: No edema, or rash. Ear: No infection. Eyes: No vision loss or color blindness. Nose: No bleeding or purulent discharges. Hearing: No hearing decrease. Neck: No injury. Cardiac: CAD, s/p CABG, HTN, HLD. Pulmonary: No COPD. GI: No GI ulcer, GI bleeding. Urinary/genital: UTI. Endocrinologic: Diabetes Mellitus. Skeletomuscular: Generalized weakness. Neurological: see HP. Psychiatric: Denies drug use/abuse. Otherwise, not [id number] review of systems. PHYSICAL EXAMINATION: General appearance is in subacute distress. HEENT: Normocephalic and nontraumatic. Eyes, nose, ears, and throat are unremarkable. Neck is supple. No lymphadenopathy. No crepitus. Cardiovascular: S1, S2, regular rate and rhythm. Pulmonary: Mildly decreased to auscultation bilaterally. Abdomen: Bowel sounds are positive. Extremities: No rash, lesions, or edema. NEUROLOGICAL EXAMINATION: Drowsiness but arousable. Not fully oriented to time, place and person. PERRL. EOMI not elicited due to not follow commands. CN: Unable to access. Muscle tone: within normal. Muscle strength: 4 DTR: 1-2 Plantar reflex: Not able to performed due to toe and BKA. Gait: Unable to walk. Sensory exam: no abnormal findings. No cerebellar signs elicited. F-T-N test fine. Objective Objective Vital Signs Date Time Temp Pulse Resp B/P (MAP) Pulse Ox O2 Delivery O2 Flow Rate FiO2 03/02/19 11:09 99.0 71 18 152/53 (86) 96 Room Air 99.0 Intake and Output 03/02/19 07:00 # Voids 4 Vitals Signs Vitals VS - Last 72 Hours, by Label Date Time Temp Pulse Resp B/P (MAP) Pulse Ox O2 Delivery O2 Flow Rate FiO2 03/02/19 11:09 99.0 71 18 152/53 (86) 96 Room Air 99.0 03/02/19 07:00 98.3 78 18 158/86 (110) 96 Room Air 98.3 03/02/19 03:53 98.4 69 18 127/49 (75) 97 Room Air 98.4 03/01/19 23:42 98.3 79 18 121/54 (76) 93 Room Air 98.3 03/01/19 20:20 Room Air 03/01/19 19:48 98.1 69 18 123/51 (75) 93 Room Air 98.1 03/01/19 14:21 98.8 68 18 133/53 (79) 94 Room Air 98.8 03/01/19 11:34 98.2 65 16 119/50 (73) 96 Room Air 98.2 03/01/19 07:00 97.9 79 16 157/75 (102) 92 Room Air 97.9 Laboratory Laboratory Laboratory Tests Test 03/01/19 16:48 03/01/19 21:41 03/02/19 02:55 03/02/19 09:27 Glucose (Fingerstick) 148 mg/dL (70-99) 151 mg/dL (70-99) 167 mg/dL (70-99) White Blood Count 9.1 x10^3/uL (4.0-11.0) Red Blood Count 4.39 x10^6/uL (4.30-5.70) Hemoglobin 13.3 g/dL (13.0-17.5) Hematocrit 39.2 % (39.0-53.0) Mean Corpuscular Volume 89 fL (79-100) Mean Corpuscular Hemoglobin 30 pg (25-35) Mean Corpuscular Hemoglobin Concent 34 g/dL (31-37) Red Cell Distribution Width 13.6 % (11.5-14.5) Platelet Count 290 x10^3/uL (140-400) Neutrophils (%) (Auto) 53 % (31-73) Lymphocytes (%) (Auto) 31 % (24-48) Monocytes (%) (Auto) 10 % (0-9) Eosinophils (%) (Auto) 6 % (0-3) Basophils (%) (Auto) 1 % (0-3) Neutrophils # (Auto) 4.8 x10^3/uL (1.8-7.7) Lymphocytes # (Auto) 2.8 x10^3/uL (1.0-4.8) Monocytes # (Auto) 0.9 x10^3/uL (0.0-1.1) Eosinophils # (Auto) 0.5 x10^3/uL (0.0-0.7) Basophils # (Auto) 0.1 x10^3/uL (0.0-0.2) Sodium Level 139 mmol/L (136-145) Potassium Level 4.2 mmol/L (3.5-5.1) Chloride Level 104 mmol/L (98-107) Carbon Dioxide Level 27 mmol/L (21-32) Anion Gap 8 (6-14) Blood Urea Nitrogen 23 mg/dL (8-26) Creatinine 1.1 mg/dL (0.7-1.3) Estimated GFR (Cockcroft-Gault) 66.4 BUN/Creatinine Ratio 21 (6-20) Glucose Level 167 mg/dL (70-99) Calcium Level 9.1 mg/dL (8.5-10.1) Total Bilirubin 0.3 mg/dL (0.2-1.0) Aspartate Amino Transf (AST/SGOT) 17 U/L (15-37) Alanine Aminotransferase (ALT/SGPT) 19 U/L (16-63) Alkaline Phosphatase 60 U/L (46-116) Total Protein 6.9 g/dL (6.4-8.2) Albumin 2.7 g/dL (3.4-5.0) Albumin/Globulin Ratio 0.6 (1.0-1.7) Test 03/02/19 11:50 Glucose (Fingerstick) 168 mg/dL (70-99) Medication Medications Current Medications Atorvastatin Calcium (Lipitor) 40 mg QHS PO ; Start 03/01/19 at 21:00 Influenza Virus Vaccine Quadrival (Afluria Quad 2018- (3yr Up) Syringe) 0.5 ml ONCE ONCE VAX IM ; Start 03/02/19 at 13:00; Stop 03/02/19 at 13:01; Status DC Info (CONTRAST GIVEN -- Rx MONITORING) 1 each PRN DAILY PRN MC SEE COMMENTS; Start 03/02/19 at 15:00; Stop 03/04/19 at 14:59 Iohexol (Omnipaque 350 Mg/ml) 75 ml 1X ONCE IV Last administered on 03/02/19at 15:02; Start 03/02/19 at 15:00; Stop 03/02/19 at 15:01; Status DC Miscellaneous (Lidoderm Patch Removal) 1 ea QHS MC Last administered on 03/01/19at 21:00; Start 03/01/19 at 21:00 Comment Review of Relevant I have reviewed the following items chris (where applicable) has been applied. HECTOR SAWYER MD Mar 02, 2019 16:12
--- NOTE | 2019-03-02 16:42 | RAD ---
PQRS Compliance Statement: One or more of the following individualized dose reduction techniques were utilized for this examination: 1. Automated exposure control 2. Adjustment of the mA and/or kV according to patient size 3. Use of iterative reconstruction technique CT ANGIOGRAPHY HEAD AND NECK 03/02/2019 2:40 PM INDICATION: Carotid stenosis and stroke COMPARISON: Ultrasound carotids 03/01/2019 TECHNIQUE: Multiple axial CT images of the head and neck were obtained after the intravenous administration of nonionic contrast. Coronal and sagittal reformats are provided. Maximum intensity projection images are provided. Stenosis calculations for CT, MR, and conventional angiography are based upon measurements of the distal ICA diameter in accordance with the NASCET methodology. Stenosis calculations for carotid ultrasound studies are derived from validated velocity criteria which are known to correlate with the NASCET methodology. FINDINGS: Ventricles, sulci and basal cisterns are normal in appearance. Focal hypoattenuation involving the left thalamus is compatible with subacute infarct with evolution. Remote ischemic changes are noted in the left frontal lobe. Previously seen smaller subacute infarcts are not definitively visualized on this examination. There is no mass, mass effect or midline shift. Posterior fossa is normal in appearance. Sella and suprasellar cistern appear normal. Orbits are normal in appearance with exception of bilateral lens replacement. Scalp and calvaria appear intact. Paranasal sinuses are well aerated. Mastoid air cells are well aerated. Visualized portions of lungs are clear. Thyroid gland is normal in appearance. Neck soft tissues are normal in appearance. No pathologically enlarged cervical lymphadenopathy. Pharynx and larynx appear intact. Mild cervical spondylosis. Median sternotomy changes are present. Vascular findings: There is a normal three-vessel aortic arch. Origins of the brachiocephalic vessels are widely patent. Right common carotid artery is normal in course and caliber with minimal noncalcified atheromatous plaque involving the distal right common carotid artery. No significant stenosis is identified at the right carotid bifurcation. Gas or noncalcified atheromatous plaque is identified at the right carotid bifurcation. External carotid artery is patent. Noncalcified atheromatous plaque is identified along the left common carotid artery without significant stenosis. There is calcified and noncalcified atheromatous plaque at the left carotid bifurcation without significant luminal stenosis. Left cervical internal carotid artery is normal in course and caliber. External carotid artery is patent. Vertebral arteries are normal in course and caliber. There is mild stenosis of the origin of the right vertebral artery secondary to calcified plaque. There is mild stenosis of the origin of the left vertebral artery secondary to calcified and noncalcified atheromatous plaque. Left vertebral artery is dominant. Intracranial segments of internal carotid arteries are normal in course and caliber. There is mild calcified atheromatous plaque involving the cavernous segments without significant stenosis. Origins of the ophthalmic segments of the internal carotid artery appears widely patent. Middle cerebral arteries are normal in course and caliber with patent sylvian branches. Mild irregularity of the left A1 segment of anterior cerebral artery. Anterior communicating artery is visualized. Basilar artery is normal in course and caliber. Superior cerebellar arteries are widely patent. Posterior cerebral arteries are normal in course and caliber. There is a diminutive left P1 segment posterior cerebral artery. Absent right P1 with origin of the right posterior cerebral artery. Dominant bilateral posterior commuting artery is are visualized. There is no aneurysm, vascular malformation or high-grade stenosis/large vessel occlusion involving cantwell of Rodriguez. Superior sagittal sinus is patent. IMPRESSION: 1. There is no evidence for acute intracranial hemorrhage. Focal hypoattenuation along the left thalamus compatible with evolving infarct. There is a remote infarct involving the left frontal lobe. Mild intracranial atherosclerotic changes. 2. There is no evidence for hemodynamically significant carotid stenosis by CT. 3. There is no aneurysm, vascular malformation or high-grade stenosis/large vessel occlusion involving the cantwell of Rodriguez. Electronically signed by: Yin Amador MD (03/02/2019 4:39 PM) [facility]
--- NOTE | 2019-03-02 17:32 | PDOC2 ---
PALLIATIVE CARE Palliative Care Note Palliative Care Patient alert when seen at 0900 this am. Up to chair with [address] Mendez. Will continue current treatment plan. ILIANA JAVIER Mar 02, 2019 17:32
[2019-03-02] MEDS: PATCH REMOVAL. MC SCH (17:45)
[2019-03-02 19:41] VITALS: BP 130/56
[2019-03-02] MEDS: ATORVASTATIN CALCIUM 40 MG TABLET. PO SCH (21:16)
[2019-03-02] MEDS: DIVALPROEX EXTENDED RELEASE 250 MG TAB.ER.24H. PO SCH (21:16)
[2019-03-02] MEDS: INSULIN GLARGINE SYRINGE. SQ SCH (21:30)
--- NOTE | 2019-03-02 21:36 | CONS ---
DATE OF CONSULTATION: 03/02/2019 CHIEF COMPLAINT: Acute stroke and possible carotid arterial disease. HISTORY OF PRESENT ILLNESS: The patient is a 68-year-old male who was admitted to the hospital with right-sided weakness and inability to speak. Prior to hospitalization, he was at a rehab center before this, he was homeless. He has been evaluated with an MRI of the head, which shows an acute left thalamocapsular stroke and an old left frontal stroke. Carotid artery duplex scan by report shows 50% to 69% stenosis of the left internal carotid artery; however, review of velocities showed no significant elevation of his velocities throughout the carotid vessels and normal ICA to CCA ratios bilaterally. The patient is now able to speak and answer simple questions. He has regained some strength in his right arm and right leg. He does have a history of a left [id number] amputation and has been nonambulatory. REVIEW OF SYSTEMS: Unobtainable because of the patient's mental status with his stroke and inability to answer questions. PAST MEDICAL HISTORY: Includes: 1. Coronary artery disease. 2. Hypertension. 3. Hyperlipidemia. 4. Stroke. 5. Dementia. 6. Chronic renal insufficiency. 7. Diabetes mellitus. PAST SURGICAL HISTORY: Includes a coronary artery bypass graft. FAMILY HISTORY: Includes diabetes mellitus and hypertension. SOCIAL HISTORY: He does not smoke or drink alcohol. PHYSICAL EXAMINATION: GENERAL: The patient is awake and alert, he is able to answer very simple questions, but has a very difficult time speaking. VITAL SIGNS: He is afebrile. His vital signs are stable. NECK: His neck is supple. HEART: His heart has regular rate and rhythm. LUNGS: His lungs have bilateral breath sounds to auscultation. ABDOMEN: His abdomen is soft, obese, nontender and nondistended. EXTREMITIES: His bilateral upper extremities are warm without edema. His left lower extremity has an above-knee amputation. His right lower extremity is warm with no tissue breakdown and no swelling. NEUROLOGIC: He is awake and alert. He has very difficult time speaking can say a few words, he has 4/5 strength in his right arm and 3/5 strength in his right leg. His left arm has normal strength and he has a left [id number] amputation. IMPRESSION: 1. Acute left thalamocapsular stroke. 2. Old chronic left frontal stroke. 3. Possible mild carotid arterial disease. PLAN: The patient has had an acute stroke in his left thalamocapsular region and has an old left frontal stroke. He is symptomatic with aphasia and right-sided weakness. Carotid artery duplex scan by report shows 50% to 69% stenosis of the left internal carotid artery; however, in reviewing the velocities, there is no significant elevation of velocities and there are normal bilateral ICA to CCA ratios. I recommend a CT angiogram of the neck to further evaluate his carotid arteries to see if he has significant stenosis that may explain his strokes. He is being seen by palliative care and physical therapy. He is also having swallowing studies, which he has failed at this point. We will follow up on his carotid artery, a CAT scan and make further recommendations after this test is obtained. BRANDEN ARANDA MD DR: JOAQUIM/vikki JOB#: [id number] / [id number]
[2019-03-02 23:41] VITALS: BP 136/59
[2019-03-03 03:44] VITALS: BP 125/50
[2019-03-03 07:00] VITALS: BP 143/49
[2019-03-03] MEDS: INSULIN LISPRO 300 UNITS/3 ML VIAL. SQ SCH ×3 (08:00→17:00)
--- NOTE | 2019-03-03 08:21 | PDOC ---
PROGRESS NOTES History of Present Illness History of Present Illness VTE Prophylaxis Ordered VTE Prophylaxis Devices: No VTE Pharmacological Prophylaxi: Yes Assessment/Plan Assessment/Plan acute new right sided weakness, UTI Beta hemolytic Streptococcus, group B Greater than 100,000 colony forming units per mL Penicillin and ampicillin are drugs of choice for treatment of beta-hemolytic streptococcal infections. Acute ischemic infarct at the left thalamocapsular junction. Additional few foci of high intensity signal DWI without corresponding ADC signal, nonspecific but small acute infarcts not ruled out. 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 White matter changes likely secondary to chronic microvascular ischemic disease. CVA, acute on chronic, timeline > 8 hours, CT brain C/W chronic and subacute infarcts Acute metabolic encephalopathy Dm 1 with Hyperglycemia. Vasomotor nephropathy, Diabetes with severe chronic atherosclerosis, multilevel. Cardiomyopathy The Ejection Fraction is estimated at 30%. 2017 Chronic systolic HF PAD HX splenic infarcts, old ON US 03/01 no hemodynamically significant right-sided carotid stenosis. There is moderate (50-69 percent) stenosis involving the left internal carotid artery with elevated end-diastolic velocity in the distal internal carotid artery. ON cta 03/02 no evidence for acute intracranial hemorrhage. Focal hypoattenuation along the left thalamus compatible with evolving infarct. There is a remote infarct involving the left frontal lobe. Mild intracranial atherosclerotic changes.no evidence for hemodynamically significant carotid stenosis by CT. There is no aneurysm, vascular malformation or high-grade stenosis/large vessel occlusion involving the [place] of [place]. Dm2, on insulin, NPO continue PPN Neuro consult PENDING CARDIOLOGY CONSULT poss UTI, + LE, dirty catch, new lethargy, IV abx, rocephin PT and OT and Speech admit VASCULAR SURGERY CONSULTED/ reviewed IV ROCEPHIN video swallow study 03/03 Discharge Recommendations * Group Home Unit Treatment Frequency (Days/Week) * 5x over 7 days x2 wks 39 MIN PT EXAM, CHART REVIEW, > 50% OF TIME SPENT WITH EXAM, CHART REVIEW, PT CARE COORDINATION Vitals Vitals Vital Signs Date Time Temp Pulse Resp B/P (MAP) Pulse Ox O2 Delivery O2 Flow Rate FiO2 03/03/19 07:00 98.3 67 18 143/49 (80) 93 Room Air 98.3 Physical Exam General: Alert, Cooperative, No acute distress, Other (Ox2) Heart: Regular rate (SR), Normal S1, Normal S2, No murmurs Lungs: Clear Abdomen: Normal bowel sounds, Soft, No tenderness Extremities: No cyanosis, No edema, Other (LEFT AKA) Skin: No breakdown, No significant lesion Labs LABS SPEC #: [id number] JOSHUA: 02/28/19 STATUS: KATHY CORTEZ #: [id number] RECD: 02/28/19 [facility] DR: JETHRO SCALES DO SOURCE: VOID ENTR: 02/28/[address]: SHERRY ALCANTARA MD [facility]: CHRIS FINLEY MD, CHRISTOPHER S MD ORDERED: URINE CULTURE Procedure Result URINE CULTURE Final Final report URINE CULTURE RES 1 Final Comment Beta hemolytic Streptococcus, group B Greater than 100,000 colony forming units per mL Penicillin and ampicillin are drugs of choice for treatment of beta-hemolytic streptococcal infections. Susceptibility testing of penicillins and other beta-lactam agents approved by the FDA for treatment of beta-hemolytic streptococcal infections need not be performed routinely because nonsusceptible isolates are extremely rare in any beta-hemolytic streptococcus and have not been reported for Streptococcus pyogenes (group A). (CLSI) Performed at: - [facility] [address], [place], [place] [id number] Hearing Aid Fitter: BALDEMAR Soto MD, Phone: [phone] INDICATION: Carotid stenosis and stroke COMPARISON: Ultrasound carotids 03/01/2019 TECHNIQUE: Multiple axial CT images of the head and neck were obtained after the intravenous administration of nonionic contrast. Coronal and sagittal reformats are provided. Maximum intensity projection images are provided. Stenosis calculations for CT, MR, and conventional angiography are based upon measurements of the distal ICA diameter in accordance with the NASCET methodology. Stenosis calculations for carotid ultrasound studies are derived from validated velocity criteria which are known to correlate with the NASCET methodology. FINDINGS: Ventricles, sulci and basal cisterns are normal in appearance. Focal hypoattenuation involving the left thalamus is compatible with subacute infarct with evolution. Remote ischemic changes are noted in the left frontal lobe. Previously seen smaller subacute infarcts are not definitively visualized on this examination. There is no mass, mass effect or midline shift. Posterior fossa is normal in appearance. Sella and suprasellar cistern appear normal. Orbits are normal in appearance with exception of bilateral lens replacement. Scalp and calvaria appear intact. Paranasal sinuses are well aerated. Mastoid air cells are well aerated. Visualized portions of lungs are clear. Thyroid gland is normal in appearance. Neck soft tissues are normal in appearance. No pathologically enlarged cervical lymphadenopathy. Pharynx and larynx appear intact. Mild cervical spondylosis. Median sternotomy changes are present. Vascular findings: There is a normal three-vessel aortic arch. Origins of the brachiocephalic vessels are widely patent. Right common carotid artery is normal in course and caliber with minimal noncalcified atheromatous plaque involving the distal right common carotid artery. No significant stenosis is identified at the right carotid bifurcation. Gas or noncalcified atheromatous plaque is identified at the right carotid bifurcation. External carotid artery is patent. Noncalcified atheromatous plaque is identified along the left common carotid artery without significant stenosis. There is calcified and noncalcified atheromatous plaque at the left carotid bifurcation without significant luminal stenosis. Left cervical internal carotid artery is normal in course and caliber. External carotid artery is patent. Vertebral arteries are normal in course and caliber. There is mild stenosis of the origin of the right vertebral artery secondary to calcified plaque. There is mild stenosis of the origin of the left vertebral artery secondary to calcified and noncalcified atheromatous plaque. Left vertebral artery is dominant. Intracranial segments of internal carotid arteries are normal in course and caliber. There is mild calcified atheromatous plaque involving the cavernous segments without significant stenosis. Origins of the ophthalmic segments of the internal carotid artery appears widely patent. Middle cerebral arteries are normal in course and caliber with patent sylvian branches. Mild irregularity of the left A1 segment of anterior cerebral artery. Anterior communicating artery is visualized. Basilar artery is normal in course and caliber. Superior cerebellar arteries are widely patent. Posterior cerebral arteries are normal in course and caliber. There is a diminutive left P1 segment posterior cerebral artery. Absent right P1 with origin of the right posterior cerebral artery. Dominant bilateral posterior commuting artery is are visualized. There is no aneurysm, vascular malformation or high-grade stenosis/large vessel occlusion involving [place] of [place]. Superior sagittal sinus is patent. IMPRESSION: 1. There is no evidence for acute intracranial hemorrhage. Focal hypoattenuation along the left thalamus compatible with evolving infarct. There is a remote infarct involving the left frontal lobe. Mild intracranial atherosclerotic changes. 2. There is no evidence for hemodynamically significant carotid stenosis by CT. 3. There is no aneurysm, vascular malformation or high-grade stenosis/large vessel occlusion involving the [place] of [place]. Electronically signed by: Sudarshan Delaney MD (03/02/2019 4:39 PM) [facility] DICTATED and SIGNED BY: SUDARSHNA DELANEY MD Laboratory Tests Test 03/02/19 09:27 03/02/19 11:50 03/02/19 16:58 03/02/19 21:07 Glucose (Fingerstick) 167 mg/dL (70-99) 168 mg/dL (70-99) 150 mg/dL (70-99) 157 mg/dL (70-99) Test 03/03/19 07:22 Glucose (Fingerstick) 148 mg/dL (70-99) Comment Review of Relevant I have reviewed the following items chris (where applicable) has been applied. Labs Laboratory Tests Test 03/01/19 11:14 03/01/19 16:48 03/01/19 21:41 03/02/19 02:55 Glucose (Fingerstick) 146 mg/dL (70-99) 148 mg/dL (70-99) 151 mg/dL (70-99) White Blood Count 9.1 x10^3/uL (4.0-11.0) Red Blood Count 4.39 x10^6/uL (4.30-5.70) Hemoglobin 13.3 g/dL (13.0-17.5) Hematocrit 39.2 % (39.0-53.0) Mean Corpuscular Volume 89 fL (79-100) Mean Corpuscular Hemoglobin 30 pg (25-35) Mean Corpuscular Hemoglobin Concent 34 g/dL (31-37) Red Cell Distribution Width 13.6 % (11.5-14.5) Platelet Count 290 x10^3/uL (140-400) Neutrophils (%) (Auto) 53 % (31-73) Lymphocytes (%) (Auto) 31 % (24-48) Monocytes (%) (Auto) 10 % (0-9) Eosinophils (%) (Auto) 6 % (0-3) Basophils (%) (Auto) 1 % (0-3) Neutrophils # (Auto) 4.8 x10^3/uL (1.8-7.7) Lymphocytes # (Auto) 2.8 x10^3/uL (1.0-4.8) Monocytes # (Auto) 0.9 x10^3/uL (0.0-1.1) Eosinophils # (Auto) 0.5 x10^3/uL (0.0-0.7) Basophils # (Auto) 0.1 x10^3/uL (0.0-0.2) Sodium Level 139 mmol/L (136-145) Potassium Level 4.2 mmol/L (3.5-5.1) Chloride Level 104 mmol/L (98-107) Carbon Dioxide Level 27 mmol/L (21-32) Anion Gap 8 (6-14) Blood Urea Nitrogen 23 mg/dL (8-26) Creatinine 1.1 mg/dL (0.7-1.3) Estimated GFR (Cockcroft-Gault) 66.4 BUN/Creatinine Ratio 21 (6-20) Glucose Level 167 mg/dL (70-99) Calcium Level 9.1 mg/dL (8.5-10.1) Total Bilirubin 0.3 mg/dL (0.2-1.0) Aspartate Amino Transf (AST/SGOT) 17 U/L (15-37) Alanine Aminotransferase (ALT/SGPT) 19 U/L (16-63) Alkaline Phosphatase 60 U/L (46-116) Total Protein 6.9 g/dL (6.4-8.2) Albumin 2.7 g/dL (3.4-5.0) Albumin/Globulin Ratio 0.6 (1.0-1.7) Test 03/02/19 09:27 03/02/19 11:50 03/02/19 16:58 03/02/19 21:07 Glucose (Fingerstick) 167 mg/dL (70-99) 168 mg/dL (70-99) 150 mg/dL (70-99) 157 mg/dL (70-99) Test 03/03/19 07:22 Glucose (Fingerstick) 148 mg/dL (70-99) Laboratory Tests Test 03/02/19 09:27 03/02/19 11:50 03/02/19 16:58 03/02/19 21:07 Glucose (Fingerstick) 167 mg/dL (70-99) 168 mg/dL (70-99) 150 mg/dL (70-99) 157 mg/dL (70-99) Test 03/03/19 07:22 Glucose (Fingerstick) 148 mg/dL (70-99) Microbiology 02/28/19 Urine Culture - Final, Complete 02/28/19 Urine Culture Result 1 (ABDI) - Final, Complete Medications Current Medications Aspirin (Aspirin Rectal Supp) 300 mg 1X ONCE NE Last administered on 02/28/19at 01:30; Start 02/28/19 at 01:30; Stop 02/28/19 at 01:31; Status DC Ondansetron HCl (Zofran) 4 mg PRN Q8HRS PRN IV NAUSEA/VOMITING; Start 02/28/19 at 01:15; Stop 03/01/19 at 01:14; Status DC Insulin Human Lispro (HumaLOG) 0-5 UNITS TIDWMEALS SQ ; Start 02/28/19 at 08:00; Stop 02/28/19 at 09:28; Status DC Dextrose (Dextrose 50%-Water Syringe) 12.5 gm PRN Q15MIN PRN IV SEE COMMENTS; Start 02/28/19 at 01:15; Stop 02/28/19 at 05:38; Status DC Dextrose (Dextrose 50%-Water Syringe) 12.5 gm PRN Q15MIN PRN IV SEE COMMENTS; Start 02/28/19 at 05:30; Stop 02/28/19 at 09:27; Status DC Amino Acids/ Glycerin/ Electrolytes 1,000 ml @ 80 mls/hr [id number] IV Last administered on 03/02/19at 21:17; Start 02/28/19 at 10:00 Aspirin (Aspirin Rectal Supp) 300 mg DAILY RC Last administered on 03/02/19at 12:41; Start 03/01/19 at 09:00 Divalproex Sodium (Depakote Er) 250 mg QHS PO ; Start 02/28/19 at 21:00 Insulin Human Lispro (HumaLOG) 0-9 UNITS TIDWMEALS SQ ; Start 02/28/19 at 12:00 Dextrose (Dextrose 50%-Water Syringe) 12.5 gm PRN Q15MIN PRN IV SEE COMMENTS; Start 02/28/19 at 09:30 Insulin Glargine (Lantus Syringe) 10 unit QHS SQ Last administered on 03/02/19at 21:30; Start 02/28/19 at 21:00 Ceftriaxone Sodium (Rocephin) 1 gm Q24H IVP Last administered on 03/02/19at 12:40; Start 02/28/19 at 10:00 Cyanocobalamin (Vitamin B-12) 1,000 mcg 1X ONCE IM Last administered on 02/28/19at 13:12; Start 02/28/19 at 13:00; Stop 02/28/19 at 13:01; Status DC Atorvastatin Calcium (Lipitor) 40 mg QHS PO ; Start 03/01/19 at 21:00 Lidocaine (Lidoderm) 1 patch DAILY TD Last administered on 03/02/19at 12:40; Start 03/01/19 at 13:00 Miscellaneous (Lidoderm Patch Removal) 1 ea QHS MC Last administered on 03/01/19at 21:00; Start 03/01/19 at 21:00 Labetalol HCl (Normodyne Iv Push) 10 mg PRN Q2HR PRN IVP HYPERTENSION; Start 03/01/19 at 14:45 Influenza Virus Vaccine Quadrival (Afluria Quad 2019-20 (3yr Up) Syringe) 0.5 ml ONCE ONCE VAX IM ; Start 03/02/19 at 13:00; Stop 03/02/19 at 13:01; Status DC Iohexol (Omnipaque 350 Mg/ml) 75 ml 1X ONCE IV Last administered on 03/02/19at 15:02; Start 03/02/19 at 15:00; Stop 03/02/19 at 15:01; Status DC Info (CONTRAST GIVEN -- Rx MONITORING) 1 each PRN DAILY PRN MC SEE COMMENTS; Start 03/02/19 at 15:00; Stop 03/04/19 at 14:59 Cyanocobalamin (Vitamin B-12) 1,000 mcg DAILY ONCE IM ; Start 03/03/19 at 09:00; Stop 03/03/19 at 09:01 Active Scripts Active Reported Tylenol (Acetaminophen) 325 Mg Tablet 2 Tab PO PRN Q8HRS PRN Omeprazole 20 Mg Capsule.dr 1 Cap PO DAILY Mucinex (Guaifenesin) 600 Mg Tablet.er 1 Tab PO PRN BID PRN Imodium A-D (Loperamide HCl) 2 Mg Capsule 2 Mg PO PRN Q6HRS PRN Mirtazapine 15 Mg Tablet 7.5 Mg PO QHS Glucose Gel (Dextrose) 38 Gm Gel..gram. 38 Gm PO PRN Q15MIN PRN Glucagon Emergency Kit (Glucagon,Human Recombinant) 1 Mg Kit 1 Mg IM PRN Depakote Er (Divalproex Sodium) 250 Mg Tab.er.24h 1 Tab PO QHS Aspirin 325 Mg Tablet 1 Tab PO DAILY Zofran (Ondansetron Hcl) 4 Mg Tablet 1 Tab PO Q8HRS PRN Lisinopril 20 Mg Tablet 1 Tab PO BID Levemir (Insulin Detemir) 100 Unit/1 Ml Vial 45 Unit SQ QHS Aspirin 300 Mg Supp.rect 300 Mg RC DAILY Hydrocodone-Apap 5-325 (Hydrocodone Bit/Acetaminophen) 1 Each Tablet 1 Tab PO Q4HRS PRN Vitals/I & O Vital Sign - Last 24 Hours 03/02/19 03/02/19 03/02/19 03/02/19 11:09 19:41 20:10 23:41 Temp 99.0 98.3 97.9 99.0 98.3 97.9 Pulse 71 65 60 Resp 18 18 18 B/P (MAP) 152/53 (86) 130/56 (80) 136/59 (84) Pulse Ox 96 93 93 O2 Delivery Room Air Room Air Room Air Room Air 03/03/19 03/03/19 03:44 07:00 Temp 98.2 98.3 98.2 98.3 Pulse 65 67 Resp 18 B/P (MAP) 125/50 (75) 143/49 (80) Pulse Ox 93 93 O2 Delivery Room Air Room Air Intake and Output 03/02/19 03/02/19 03/03/19 15:00 23:00 07:00 Intake Total 0 ml 0 ml Balance 0 ml 0 ml SHANIKA FERNÁNDEZ MD Mar 03, 2019 08:21
[2019-03-03] MEDS ORDERED: CYANOCOBALAMIN (VITAMIN B-12) 1,000 MCG/ML VIAL IM ONE (09:00)
[2019-03-03] MEDS: AMINO AC 3%/ELECTROLYTE/GLYCER 1,000 ML IV SCH (09:33)
[2019-03-03] MEDS: ASPIRIN RECTAL 300 MG SUPP. RC SCH (09:35)
[2019-03-03] MEDS: LIDOCAINE (700MG/PATCH) PATCH. TD SCH (09:36)
[2019-03-03 10:58] VITALS: BP 119/55
--- NOTE | 2019-03-03 11:46 | NUR ---
KAMAR following pt. Discussed with PC, pt is showing improvement, another swallow eval today. SW faxed updates to [facility], [place]. Will continue to follow.
--- NOTE | 2019-03-03 12:18 | PDOC ---
PROGRESS NOTES Objective Objective Vascular Surgery Follow Up: General: Patient examined in the room with aide present. No complaints at this time. Denies headache. Neuro: Continues to have right-sided weakness of upper and lower extremities. Has failed swallowing study and is on parenteral nutrition at this time. Oriented to person and place. Verbal responses are delayed but appropriate and understandable. Resp: Unlabored. Appears to be able to manage his oral secretions. Vital Signs: stable CTA of the head and neck results: IMPRESSION: 1. There is no evidence for acute intracranial hemorrhage. Focal hypoattenuation along the left thalamus compatible with evolving infarct. There is a remote infarct involving the left frontal lobe. Mild intracranial atherosclerotic changes. 2. There is no evidence for hemodynamically significant carotid stenosis by CT. 3. There is no aneurysm, vascular malformation or high-grade stenosis/large vessel occlusion involving the [place] of [place]. Assessment/Plan: 1. Acute left thalamocapsular stroke. 2. Old chronic left frontal stroke. 3. Possible mild carotid arterial disease on carotid doppler. CTA was performed to see if carotid stenosis correlated with doppler. CTA does not indicate hemodynamically significant stenosis to warrant surgical intervention at this time nor the probable cause of his acute stroke. Would recommend continuing on antiplatelet therapy with aspirin 81mg daily as well as adding statin therapy if patient tolerant. Palliative care has been consulted and are involved in patient's plan of care. 4. Vascular Surgery will sign off. Thank you. Vital Signs Date Time Temp Pulse Resp B/P (MAP) Pulse Ox O2 Delivery O2 Flow Rate FiO2 03/03/19 10:58 97.6 68 20 119/55 (76) 95 Room Air 97.6 Intake and Output 03/03/19 06:59 Intake Total 0 ml Balance 0 ml Intake Oral 0 ml # Voids 4 Comment Review of Relevant I have reviewed the following items chris (where applicable) has been applied. Labs Laboratory Tests Test 03/01/19 16:48 03/01/19 21:41 03/02/19 02:55 03/02/19 09:27 Glucose (Fingerstick) 148 mg/dL (70-99) 151 mg/dL (70-99) 167 mg/dL (70-99) White Blood Count 9.1 x10^3/uL (4.0-11.0) Red Blood Count 4.39 x10^6/uL (4.30-5.70) Hemoglobin 13.3 g/dL (13.0-17.5) Hematocrit 39.2 % (39.0-53.0) Mean Corpuscular Volume 89 fL (79-100) Mean Corpuscular Hemoglobin 30 pg (25-35) Mean Corpuscular Hemoglobin Concent 34 g/dL (31-37) Red Cell Distribution Width 13.6 % (11.5-14.5) Platelet Count 290 x10^3/uL (140-400) Neutrophils (%) (Auto) 53 % (31-73) Lymphocytes (%) (Auto) 31 % (24-48) Monocytes (%) (Auto) 10 % (0-9) Eosinophils (%) (Auto) 6 % (0-3) Basophils (%) (Auto) 1 % (0-3) Neutrophils # (Auto) 4.8 x10^3/uL (1.8-7.7) Lymphocytes # (Auto) 2.8 x10^3/uL (1.0-4.8) Monocytes # (Auto) 0.9 x10^3/uL (0.0-1.1) Eosinophils # (Auto) 0.5 x10^3/uL (0.0-0.7) Basophils # (Auto) 0.1 x10^3/uL (0.0-0.2) Sodium Level 139 mmol/L (136-145) Potassium Level 4.2 mmol/L (3.5-5.1) Chloride Level 104 mmol/L (98-107) Carbon Dioxide Level 27 mmol/L (21-32) Anion Gap 8 (6-14) Blood Urea Nitrogen 23 mg/dL (8-26) Creatinine 1.1 mg/dL (0.7-1.3) Estimated GFR (Cockcroft-Gault) 66.4 BUN/Creatinine Ratio 21 (6-20) Glucose Level 167 mg/dL (70-99) Calcium Level 9.1 mg/dL (8.5-10.1) Total Bilirubin 0.3 mg/dL (0.2-1.0) Aspartate Amino Transf (AST/SGOT) 17 U/L (15-37) Alanine Aminotransferase (ALT/SGPT) 19 U/L (16-63) Alkaline Phosphatase 60 U/L (46-116) Total Protein 6.9 g/dL (6.4-8.2) Albumin 2.7 g/dL (3.4-5.0) Albumin/Globulin Ratio 0.6 (1.0-1.7) Test 03/02/19 11:50 03/02/19 16:58 03/02/19 21:07 03/03/19 07:22 Glucose (Fingerstick) 168 mg/dL (70-99) 150 mg/dL (70-99) 157 mg/dL (70-99) 148 mg/dL (70-99) Test 03/03/19 11:52 Glucose (Fingerstick) 144 mg/dL (70-99) Laboratory Tests Test 03/02/19 16:58 03/02/19 21:07 03/03/19 07:22 03/03/19 11:52 Glucose (Fingerstick) 150 mg/dL (70-99) 157 mg/dL (70-99) 148 mg/dL (70-99) 144 mg/dL (70-99) Microbiology 02/28/19 Urine Culture - Final, Complete 02/28/19 Urine Culture Result 1 (ABDI) - Final, Complete Medications Current Medications Aspirin (Aspirin Rectal Supp) 300 mg 1X ONCE MO Last administered on 02/28/19at 01:30; Start 02/28/19 at 01:30; Stop 02/28/19 at 01:31; Status DC Ondansetron HCl (Zofran) 4 mg PRN Q8HRS PRN IV NAUSEA/VOMITING; Start 02/28/19 at 01:15; Stop 03/01/19 at 01:14; Status DC Insulin Human Lispro (HumaLOG) 0-5 UNITS TIDWMEALS SQ ; Start 02/28/19 at 08:00; Stop 02/28/19 at 09:28; Status DC Dextrose (Dextrose 50%-Water Syringe) 12.5 gm PRN Q15MIN PRN IV SEE COMMENTS; Start 02/28/19 at 01:15; Stop 02/28/19 at 05:38; Status DC Dextrose (Dextrose 50%-Water Syringe) 12.5 gm PRN Q15MIN PRN IV SEE COMMENTS; Start 02/28/19 at 05:30; Stop 02/28/19 at 09:27; Status DC Amino Acids/ Glycerin/ Electrolytes 1,000 ml @ 80 mls/hr [id number] IV Last administered on 03/03/19 09:33; Start 02/28/19 at 10:00 Aspirin (Aspirin Rectal Supp) 300 mg DAILY RC Last administered on 03/03/19 09:35; Start 03/01/19 at 09:00 Divalproex Sodium (Depakote Er) 250 mg QHS PO ; Start 02/28/19 at 21:00 Insulin Human Lispro (HumaLOG) 0-9 UNITS TIDWMEALS SQ ; Start 02/28/19 at 12:00 Dextrose (Dextrose 50%-Water Syringe) 12.5 gm PRN Q15MIN PRN IV SEE COMMENTS; Start 02/28/19 at 09:30 Insulin Glargine (Lantus Syringe) 10 unit QHS SQ Last administered on 03/02/19 21:30; Start 02/28/19 at 21:00 Ceftriaxone Sodium (Rocephin) 1 gm Q24H IVP Last administered on 03/02/19 12:40; Start 02/28/19 at 10:00 Cyanocobalamin (Vitamin B-12) 1,000 mcg 1X ONCE IM Last administered on 02/28/19 13:12; Start 02/28/19 at 13:00; Stop 02/28/19 at 13:01; Status DC Atorvastatin Calcium (Lipitor) 40 mg QHS PO ; Start 03/01/19 at 21:00 Lidocaine (Lidoderm) 1 patch DAILY TD Last administered on 03/03/19 09:36; Start 03/01/19 at 13:00 Miscellaneous (Lidoderm Patch Removal) 1 ea QHS MC Last administered on 03/01/19at 21:00; Start 03/01/19 at 21:00 Labetalol HCl (Normodyne Iv Push) 10 mg PRN Q2HR PRN IVP HYPERTENSION; Start 03/01/19 at 14:45 Influenza Virus Vaccine Quadrival (Afluria Quad 2019-20 (3yr Up) Syringe) 0.5 ml ONCE ONCE VAX IM ; Start 03/02/19 at 13:00; Stop 03/02/19 at 13:01; Status DC Iohexol (Omnipaque 350 Mg/ml) 75 ml 1X ONCE IV Last administered on 03/02/19at 15:02; Start 03/02/19 at 15:00; Stop 03/02/19 at 15:01; Status DC Info (CONTRAST GIVEN -- Rx MONITORING) 1 each PRN DAILY PRN MC SEE COMMENTS; Start 03/02/19 at 15:00; Stop 03/04/19 at 14:59 Cyanocobalamin (Vitamin B-12) 1,000 mcg DAILY ONCE IM Last administered on 03/03/19at 09:35; Start 03/03/19 at 09:00; Stop 03/03/19 at 09:01; Status DC Active Scripts Active Reported Tylenol (Acetaminophen) 325 Mg Tablet 2 Tab PO PRN Q8HRS PRN Omeprazole 20 Mg Capsule.dr 1 Cap PO DAILY Mucinex (Guaifenesin) 600 Mg Tablet.er 1 Tab PO PRN BID PRN Imodium A-D (Loperamide HCl) 2 Mg Capsule 2 Mg PO PRN Q6HRS PRN Mirtazapine 15 Mg Tablet 7.5 Mg PO QHS Glucose Gel (Dextrose) 38 Gm Gel..gram. 38 Gm PO PRN Q15MIN PRN Glucagon Emergency Kit (Glucagon,Human Recombinant) 1 Mg Kit 1 Mg IM PRN Depakote Er (Divalproex Sodium) 250 Mg Tab.er.24h 1 Tab PO QHS Aspirin 325 Mg Tablet 1 Tab PO DAILY Zofran (Ondansetron Hcl) 4 Mg Tablet 1 Tab PO Q8HRS PRN Lisinopril 20 Mg Tablet 1 Tab PO BID Levemir (Insulin Detemir) 100 Unit/1 Ml Vial 45 Unit SQ QHS Aspirin 300 Mg Supp.rect 300 Mg RC DAILY Hydrocodone-Apap 5-325 (Hydrocodone Bit/Acetaminophen) 1 Each Tablet 1 Tab PO Q4HRS PRN Vitals/I & O Vital Sign - Last 24 Hours 03/02/19 03/02/19 03/02/19 03/03/19 19:41 20:10 23:41 03:44 Temp 98.3 97.9 98.2 98.3 97.9 98.2 Pulse 65 60 65 Resp 18 18 B/P (MAP) 130/56 (80) 136/59 (84) 125/50 (75) Pulse Ox 93 93 93 O2 Delivery Room Air Room Air Room Air Room Air 03/03/19 03/03/19 07:00 10:58 Temp 98.3 97.6 98.3 97.6 Pulse 67 68 Resp 18 20 B/P (MAP) 143/49 (80) 119/55 (76) Pulse Ox 93 95 O2 Delivery Room Air Room Air Intake and Output 03/02/19 03/02/19 03/03/19 14:59 22:59 06:59 Intake Total 0 ml 0 ml Balance 0 ml 0 ml CHELSEA MCCALL APRN Mar 03, 2019 12:18
[2019-03-03] MEDS ORDERED: BARIUM SULFATE 40% (APPLE) 148 GM PWD. PO ONE (13:15)
--- NOTE | 2019-03-03 14:41 | RAD ---
Exam: Video Swallowing Study Date: Mar 03, 2019 History: Clinical suspicion for aspiration Comparison: None Procedure: Video fluoroscopy of the neck was performed from the lateral projection following ingestion of various consistency barium which was administered by the speech pathologist. Fluoroscopy time: 1.8 minutes Findings/ Impression: Transient penetration of thin consistency barium. There was no laryngeal penetration or aspiration of solid, puree, honey thick and nectar consistency barium observed. Please see speech pathology's report for further details of examination. Electronically signed by: Td Reyes MD (03/03/2019 2:38 PM) [facility]
[2019-03-03 15:00] VITALS: BP 115/34
--- NOTE | 2019-03-03 15:56 | PDOC2 ---
PALLIATIVE CARE Palliative Care Note Palliative Care Patient more alert today. Following simple commands. No surgery planned for carotid stenosis Speech Therapy evaluated swallow. Diet recommended. Patient continues to progress. Code Status; Full Code. ILIANA JAVIER Mar 03, 2019 15:56
[2019-03-03] MEDS: cefTRIAXone IV Push 1 GM VIAL. IVP SCH (16:10)
--- NOTE | 2019-03-03 16:18 | PDOC ---
PROGRESS NOTES Assessment Assessment Subacute left thalamocapsule junction infarct. Right side weakness. Slurred speech. Metabolic encephalopathy. Confusion. Lethargy. Left ICA 50-69% stenosis. HTN. HLD. DM. CAD s/p CABG. CHF, EF 45-50% Vit B12 deficiency. Dementia. 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 RECOMMENDATIONS/PLAN: Continue ASA 300 mg rectal, daily. Change to PO when can swallow. Lipitor 40 mg HS. Vit B12 1 mg IM daily. OT/PT. HISTORY OF THE PRESENT ILLNESS: This is a 68-year-old male patient admit with above medical diseases has new symptoms of mental status changes, lethargy, slurred speech and right sided weakness without known time of symptoms onset. He was brought to the ER of [facility] for evaluation. His HCT reported some low densities. Patient is unable to provide information due to lethargy. Past Medical History Cardiovascular: CAD, HTN, Hyperlipidemia CENTRAL NERVOUS SYSTEM: CVA, Dementia Hepatobiliary: No pertinent hx Psych: No pertinent hx Rheumatologic: No pertinent hx Infectious disease: No pertinent hx Renal/: Chronic renal insuff Endocrine: Diabetes Past Surgical History CABG Family History Diabetes, Hypertension Social History Smoke: Quit ALCOHOL: none Drugs: None ALLERGY: Unknown MEDICATIONS: Refer to MAR REVIEW OF SYSTEMS: Constitutional: No malnutrition, weight loss, cachexia. Head: No recent traumatic brain or head injury. Skin: No edema, or rash. Ear: No infection. Eyes: No vision loss or color blindness. Nose: No bleeding or purulent discharges. Hearing: No hearing decrease. Neck: No injury. Cardiac: CAD, s/p CABG, HTN, HLD. Pulmonary: No COPD. GI: No GI ulcer, GI bleeding. Urinary/genital: UTI. Endocrinologic: Diabetes Mellitus. Skeletomuscular: Generalized weakness. Neurological: see HP. Psychiatric: Denies drug use/abuse. Otherwise, not [id number] review of systems. PHYSICAL EXAMINATION: General appearance is in subacute distress. HEENT: Normocephalic and nontraumatic. Eyes, nose, ears, and throat are unremarkable. Neck is supple. No lymphadenopathy. No crepitus. Cardiovascular: S1, S2, regular rate and rhythm. Pulmonary: Mildly decreased to auscultation bilaterally. Abdomen: Bowel sounds are positive. Extremities: No rash, lesions, or edema. NEUROLOGICAL EXAMINATION: Awake. Not fully oriented to time, place and person. PERRL. EOMI. CN: No acute findings. Muscle tone: Increased. Muscle strength: 3+ R UE, 4 the rest. DTR: 2 UE, 0-1 at knee. Plantar reflex: Not able to performed due to toe and BKA. Gait: Unable to walk. Sensory exam: no abnormal findings. No cerebellar signs elicited. F-T-N test fine. Objective Objective Vital Signs Date Time Temp Pulse Resp B/P (MAP) Pulse Ox O2 Delivery O2 Flow Rate FiO2 03/03/19 15:00 98.1 76 18 115/34 (61) 100 Room Air 98.1 Intake and Output0 03/03/19 07:00 Intake Total 0 ml Balance 0 ml Intake Oral 0 ml # Voids 4 Vitals Signs Vitals VS - Last 72 Hours, by Label Date Time Temp Pulse Resp B/P (MAP) Pulse Ox O2 Delivery O2 Flow Rate FiO2 03/03/19 15:00 98.1 76 18 115/34 (61) 100 Room Air 98.1 03/03/19 10:58 97.6 68 20 119/55 (76) 95 Room Air 97.6 03/03/19 07:00 98.3 67 18 143/49 (80) 93 Room Air 98.3 03/03/19 03:44 98.2 65 125/50 (75) 93 Room Air 98.2 03/02/19 23:41 97.9 60 18 136/59 (84) 93 Room Air 97.9 03/02/19 20:10 Room Air 03/02/19 19:41 98.3 65 18 130/56 (80) 93 Room Air 98.3 03/02/19 11:09 99.0 71 18 152/53 (86) 96 Room Air 99.0 03/02/19 07:00 98.3 78 18 158/86 (110) 96 Room Air 98.3 Laboratory Laboratory Laboratory Tests Test 03/02/19 16:58 03/02/19 21:07 03/03/19 07:22 03/03/19 11:52 Glucose (Fingerstick) 150 mg/dL (70-99) 157 mg/dL (70-99) 148 mg/dL (70-99) 144 mg/dL (70-99) Microbiology 02/28/19 Urine Culture - Final, Complete 02/28/19 Urine Culture Result 1 (ABDI) - Final, Complete Medication Medications Current Medications Barium Sulfate (Varibar Thin Liquid Apple) 148 gm 1X ONCE PO Last administered on 03/03/19at 14:00; Start 03/03/19 at 13:15; Stop 03/03/19 at 13:17; Status DC Cyanocobalamin (Vitamin B-12) 1,000 mcg DAILY ONCE IM Last administered on 03/03/19at 09:35; Start 03/03/19 at 09:00; Stop 03/03/19 at 09:01; Status DC Comment Review of Relevant I have reviewed the following items chris (where applicable) has been applied. HECTOR SAWYER MD Mar 03, 2019 16:18
[2019-03-03 19:44] VITALS: BP 132/46
[2019-03-03] MEDS: PATCH REMOVAL. MC SCH (21:00)
[2019-03-03] MEDS: INSULIN GLARGINE SYRINGE. SQ SCH (21:00)
[2019-03-03] MEDS: DIVALPROEX EXTENDED RELEASE 250 MG TAB.ER.24H. PO SCH (21:07)
[2019-03-03] MEDS: ATORVASTATIN CALCIUM 40 MG TABLET. PO SCH (21:07)
[2019-03-03 23:10] VITALS: BP 134/54
[2019-03-04] MEDS: AMINO AC 3%/ELECTROLYTE/GLYCER 1,000 ML IV SCH ×2 (01:26→14:29)
[2019-03-04 03:15] VITALS: BP 144/58
[2019-03-04 07:29] VITALS: BP 129/64
[2019-03-04] MEDS: INSULIN LISPRO 300 UNITS/3 ML VIAL. SQ SCH ×3 (08:00→17:00)
--- NOTE | 2019-03-04 08:05 | PDOC ---
PROGRESS NOTES History of Present Illness History of Present Illness VTE Prophylaxis Ordered VTE Prophylaxis Devices: No VTE Pharmacological Prophylaxi: Yes Assessment/Plan Assessment/Plan acute new right sided weakness, UTI Beta hemolytic Streptococcus, group B Greater than 100,000 colony forming units per mL Penicillin and ampicillin are drugs of choice for treatment of beta-hemolytic streptococcal infections. Acute ischemic infarct at the left thalamocapsular junction. Additional few foci of high intensity signal DWI without corresponding ADC signal, nonspecific but small acute infarcts not ruled out. 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 White matter changes likely secondary to chronic microvascular ischemic disease. CVA, acute on chronic, timeline > 8 hours, CT brain C/W chronic and subacute infarcts Acute metabolic encephalopathy Dm 1 with Hyperglycemia. Vasomotor nephropathy, Diabetes with severe chronic atherosclerosis, multilevel. Cardiomyopathy The Ejection Fraction is estimated at 30%. 2017 Chronic systolic HF PAD HX splenic infarcts, old ON US 03/01 no hemodynamically significant right-sided carotid stenosis. There is moderate (50-69 percent) stenosis involving the left internal carotid artery with elevated end-diastolic velocity in the distal internal carotid artery. ON cta 03/02 no evidence for acute intracranial hemorrhage. Focal hypoattenuation along the left thalamus compatible with evolving infarct. There is a remote infarct involving the left frontal lobe. Mild intracranial atherosclerotic changes.no evidence for hemodynamically significant carotid stenosis by CT. There is no aneurysm, vascular malformation or high-grade stenosis/large vessel occlusion involving the [place]. Dm2, on insulin, NPO continue PPN Neuro consult PENDING CARDIOLOGY CONSULT poss UTI, + LE, dirty catch, new lethargy, IV abx, rocephin PT and OT and Speech admit VASCULAR SURGERY CONSULTED/ reviewed IV ROCEPHIN video swallow study 03/03 ASA 325 MG PO DAILY, CONT PPN 03-04 LANTUS 10 UNITS SQ Q HS Discharge Recommendations * [facility] Unit Treatment Frequency (Days/Week) * 5x over 7 days x2 wks 29 MIN PT EXAM, CHART REVIEW, > 50% OF TIME SPENT WITH EXAM, CHART REVIEW, PT CARE COORDINATION Vitals Vitals Vital Signs Date Time Temp Pulse Resp B/P (MAP) Pulse Ox O2 Delivery O2 Flow Rate FiO2 03/04/19 07:29 98.4 63 18 129/64 (85) 92 Room Air 98.4 Physical Exam General: Alert, Cooperative, No acute distress, Other (Ox2) Heart: Regular rate (SR), Normal S1, Normal S2, No murmurs Lungs: Clear Abdomen: Normal bowel sounds, Soft, No tenderness Extremities: No cyanosis, No edema, Other (LEFT AKA) Skin: No breakdown, No significant lesion Labs LABS Laboratory Tests Test 03/03/19 11:52 03/03/19 17:08 03/03/19 20:32 03/04/19 07:07 Glucose (Fingerstick) 144 mg/dL (70-99) 158 mg/dL (70-99) 195 mg/dL (70-99) 179 mg/dL (70-99) Comment Review of Relevant I have reviewed the following items chris (where applicable) has been applied. Labs Laboratory Tests Test 03/02/19 09:27 03/02/19 11:50 03/02/19 16:58 03/02/19 21:07 Glucose (Fingerstick) 167 mg/dL (70-99) 168 mg/dL (70-99) 150 mg/dL (70-99) 157 mg/dL (70-99) Test 03/03/19 07:22 03/03/19 11:52 03/03/19 17:08 03/03/19 20:32 Glucose (Fingerstick) 148 mg/dL (70-99) 144 mg/dL (70-99) 158 mg/dL (70-99) 195 mg/dL (70-99) Test 03/04/19 07:07 Glucose (Fingerstick) 179 mg/dL (70-99) Laboratory Tests Test 03/03/19 11:52 03/03/19 17:08 03/03/19 20:32 03/04/19 07:07 Glucose (Fingerstick) 144 mg/dL (70-99) 158 mg/dL (70-99) 195 mg/dL (70-99) 179 mg/dL (70-99) Microbiology 02/28/19 Urine Culture - Final, Complete 02/28/19 Urine Culture Result 1 (ABDI) - Final, Complete Medications Current Medications Aspirin (Aspirin Rectal Supp) 300 mg 1X ONCE MA Last administered on 02/28/19at 01:30; Start 02/28/19 at 01:30; Stop 02/28/19 at 01:31; Status DC Ondansetron HCl (Zofran) 4 mg PRN Q8HRS PRN IV NAUSEA/VOMITING; Start 02/28/19 at 01:15; Stop 03/01/19 at 01:14; Status DC Insulin Human Lispro (HumaLOG) 0-5 UNITS TIDWMEALS SQ ; Start 02/28/19 at 08:00; Stop 02/28/19 at 09:28; Status DC Dextrose (Dextrose 50%-Water Syringe) 12.5 gm PRN Q15MIN PRN IV SEE COMMENTS; Start 02/28/19 at 01:15; Stop 02/28/19 at 05:38; Status DC Dextrose (Dextrose 50%-Water Syringe) 12.5 gm PRN Q15MIN PRN IV SEE COMMENTS; Start 02/28/19 at 05:30; Stop 02/28/19 at 09:27; Status DC Amino Acids/ Glycerin/ Electrolytes 1,000 ml @ 80 mls/hr [id number] IV Last administered on 03/04/19at 01:26; Start 02/28/19 at 10:00 Aspirin (Aspirin Rectal Supp) 300 mg DAILY RC Last administered on 03/03/19at 09:35; Start 03/01/19 at 09:00 Divalproex Sodium (Depakote Er) 250 mg QHS PO Last administered on 03/03/19at 21:07; Start 02/28/19 at 21:00 Insulin Human Lispro (HumaLOG) 0-9 UNITS TIDWMEALS SQ ; Start 02/28/19 at 12:00 Dextrose (Dextrose 50%-Water Syringe) 12.5 gm PRN Q15MIN PRN IV SEE COMMENTS; Start 02/28/19 at 09:30 Insulin Glargine (Lantus Syringe) 10 unit QHS SQ Last administered on 03/03/19at 21:00; Start 02/28/19 at 21:00 Ceftriaxone Sodium (Rocephin) 1 gm Q24H IVP Last administered on 03/03/19at 16:10; Start 02/28/19 at 10:00 Cyanocobalamin (Vitamin B-12) 1,000 mcg 1X ONCE IM Last administered on 02/28/19at 13:12; Start 02/28/19 at 13:00; Stop 02/28/19 at 13:01; Status DC Atorvastatin Calcium (Lipitor) 40 mg QHS PO Last administered on 03/03/19at 21:07; Start 03/01/19 at 21:00 Lidocaine (Lidoderm) 1 patch DAILY TD Last administered on 03/03/19at 09:36; Start 03/01/19 at 13:00 Miscellaneous (Lidoderm Patch Removal) 1 ea QHS MC Last administered on 03/03/19at 21:00; Start 03/01/19 at 21:00 Labetalol HCl (Normodyne Iv Push) 10 mg PRN Q2HR PRN IVP HYPERTENSION; Start 1 at 14:45 Influenza Virus Vaccine Quadrival (Afluria Quad 2019-20 (3yr Up) Syringe) 0.5 ml ONCE ONCE VAX IM ; Start 03/02/19 at 13:00; Stop 03/02/19 at 13:01; Status DC Iohexol (Omnipaque 350 Mg/ml) 75 ml 1X ONCE IV Last administered on 03/02/19at 15:02; Start 03/02/19 at 15:00; Stop 03/02/19 at 15:01; Status DC Info (CONTRAST GIVEN -- Rx MONITORING) 1 each PRN DAILY PRN MC SEE COMMENTS; Start 03/02/19 at 15:00; Stop 03/04/19 at 14:59 Cyanocobalamin (Vitamin B-12) 1,000 mcg DAILY ONCE IM Last administered on 03/03/19at 09:35; Start 03/03/19 at 09:00; Stop 03/03/19 at 09:01; Status DC Barium Sulfate (Varibar Thin Liquid Apple) 148 gm 1X ONCE PO Last administered on 03/03/19at 14:00; Start 03/03/19 at 13:15; Stop 03/03/19 at 13:17; Status DC Active Scripts Active Reported Tylenol (Acetaminophen) 325 Mg Tablet 2 Tab PO PRN Q8HRS PRN Omeprazole 20 Mg Capsule.dr 1 Cap PO DAILY Mucinex (Guaifenesin) 600 Mg Tablet.er 1 Tab PO PRN BID PRN Imodium A-D (Loperamide HCl) 2 Mg Capsule 2 Mg PO PRN Q6HRS PRN Mirtazapine 15 Mg Tablet 7.5 Mg PO QHS Glucose Gel (Dextrose) 38 Gm Gel..gram. 38 Gm PO PRN Q15MIN PRN Glucagon Emergency Kit (Glucagon,Human Recombinant) 1 Mg Kit 1 Mg IM PRN Depakote Er (Divalproex Sodium) 250 Mg Tab.er.24h 1 Tab PO QHS Aspirin 325 Mg Tablet 1 Tab PO DAILY Zofran (Ondansetron Hcl) 4 Mg Tablet 1 Tab PO Q8HRS PRN Lisinopril 20 Mg Tablet 1 Tab PO BID Levemir (Insulin Detemir) 100 Unit/1 Ml Vial 45 Unit SQ QHS Aspirin 300 Mg Supp.rect 300 Mg RC DAILY Hydrocodone-Apap 5-325 (Hydrocodone Bit/Acetaminophen) 1 Each Tablet 1 Tab PO Q4HRS PRN Vitals/I & O Vital Sign - Last 24 Hours 03/03/19 03/03/19 03/03/19 03/03/19 10:58 15:00 19:30 19:44 Temp 97.6 98.1 98.4 97.6 98.1 98.4 Pulse 68 76 73 Resp 20 18 16 B/P (MAP) 119/55 (76) 115/34 (61) 132/46 (74) Pulse Ox 95 100 92 O2 Delivery Room Air Room Air Room Air Room Air 03/03/19 03/04/19 03/04/19 23:10 03:15 07:29 Temp 98.3 98.4 98.4 98.3 98.4 98.4 Pulse 62 70 63 Resp 17 17 18 B/P (MAP) 134/54 (80) 144/58 (86) 129/64 (85) Pulse Ox 92 93 92 O2 Delivery Room Air Room Air Room Air Intake and Output 03/03/19 03/03/19 03/04/19 14:59 22:59 06:59 Intake Total 180 ml 0 ml Balance 180 ml 0 ml SHANIKA FERNÁNDEZ MD Mar 04, 2019 08:05
[2019-03-04] MEDS: LIDOCAINE (700MG/PATCH) PATCH. TD SCH (08:31)
[2019-03-04 11:18] VITALS: BP 132/74
[2019-03-04] MEDS: ENOXAPARIN 40 MG/0.4 ML SYRINGE. SQ SCH (12:37)
[2019-03-04] MEDS: cefTRIAXone IV Push 1 GM VIAL. IVP SCH (12:38)
[2019-03-04 14:45] VITALS: BP 128/62
--- NOTE | 2019-03-04 17:36 | PDOC ---
PROGRESS NOTES Assessment Assessment Subacute left thalamocapsule junction infarct. Right side weakness. Slurred speech. Metabolic encephalopathy. Confusion. Lethargy. Left ICA 50-69% stenosis. HTN. HLD. DM. CAD s/p CABG. CHF, EF 45-50% Vit B12 deficiency. Dementia. 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 RECOMMENDATIONS/PLAN: Continue ASA 325 mg daily. Lipitor 40 mg HS. Vit B12 1 mg IM daily. OT/PT. Rehab. HISTORY OF THE PRESENT ILLNESS: This is a 68-year-old male patient admit with above medical diseases has new symptoms of mental status changes, lethargy, slurred speech and right sided weakness without known time of symptoms onset. He was brought to the ER of [facility] for evaluation. His HCT reported some low densities. Patient is unable to provide information due to lethargy. His condition improved on 03/04/19. Past Medical History Cardiovascular: CAD, HTN, Hyperlipidemia CENTRAL NERVOUS SYSTEM: CVA, Dementia Hepatobiliary: No pertinent hx Psych: No pertinent hx Rheumatologic: No pertinent hx Infectious disease: No pertinent hx Renal/: Chronic renal insuff Endocrine: Diabetes Past Surgical History CABG Family History Diabetes, Hypertension Social History Smoke: Quit ALCOHOL: none Drugs: None ALLERGY: Unknown MEDICATIONS: Refer to MAR REVIEW OF SYSTEMS: Constitutional: No malnutrition, weight loss, cachexia. Head: No recent traumatic brain or head injury. Skin: No edema, or rash. Ear: No infection. Eyes: No vision loss or color blindness. Nose: No bleeding or purulent discharges. Hearing: No hearing decrease. Neck: No injury. Cardiac: CAD, s/p CABG, HTN, HLD. Pulmonary: No COPD. GI: No GI ulcer, GI bleeding. Urinary/genital: UTI. Endocrinologic: Diabetes Mellitus. Skeletomuscular: Generalized weakness. Neurological: see HP. Psychiatric: Denies drug use/abuse. Otherwise, not [id number] review of systems. PHYSICAL EXAMINATION: General appearance is in subacute distress. HEENT: Normocephalic and nontraumatic. Eyes, nose, ears, and throat are unremarkable. Neck is supple. No lymphadenopathy. No crepitus. Cardiovascular: S1, S2, regular rate and rhythm. Pulmonary: Mildly decreased to auscultation bilaterally. Abdomen: Bowel sounds are positive. Extremities: No rash, lesions, or edema. NEUROLOGICAL EXAMINATION: Awake. Not fully oriented to time, place and person. PERRL. EOMI. CN: No acute findings. Muscle tone: Increased. Muscle strength: 4 DTR: 2 UE, 0-1 at knee. Plantar reflex: Not able to performed due to toe and BKA. Gait: Unable to walk w/o assistance. Sensory exam: no abnormal findings. No cerebellar signs elicited. F-T-N test fine in left hand. Objective Objective Vital Signs Date Time Temp Pulse Resp B/P (MAP) Pulse Ox O2 Delivery O2 Flow Rate FiO2 03/04/19 14:45 97.4 74 18 128/62 (84) 94 Room Air 97.4 Intake and Output 03/04/19 07:00 Intake Total 180 ml Balance 180 ml Intake Oral 180 ml # Voids 9 # Bowel Movements 1 Vitals Signs Vitals VS - Last 72 Hours, by Label Date Time Temp Pulse Resp B/P (MAP) Pulse Ox O2 Delivery O2 Flow Rate FiO2 03/04/19 14:45 97.4 74 18 128/62 (84) 94 Room Air 97.4 03/04/19 11:18 97.9 68 18 132/74 (93) 96 Room Air 97.9 03/04/19 08:00 Room Air 03/04/19 07:29 98.4 63 18 129/64 (85) 92 Room Air 98.4 03/04/19 03:15 98.4 70 17 144/58 (86) 93 Room Air 98.4 03/03/19 23:10 98.3 62 17 134/54 (80) 92 Room Air 98.3 03/03/19 19:44 98.4 73 16 132/46 (74) 92 Room Air 98.4 03/03/19 19:30 Room Air 03/03/19 15:00 98.1 76 18 115/34 (61) 100 Room Air 98.1 03/03/19 10:58 97.6 68 20 119/55 (76) 95 Room Air 97.6 03/03/19 08:00 Room Air 03/03/19 07:00 98.3 67 18 143/49 (80) 93 Room Air 98.3 Laboratory Laboratory Laboratory Tests Test 03/03/19 20:32 03/04/19 07:07 03/04/19 11:00 03/04/19 16:51 Glucose (Fingerstick) 195 mg/dL (70-99) 179 mg/dL (70-99) 240 mg/dL (70-99) 218 mg/dL (70-99) Microbiology 02/28/19 Urine Culture - Final, Complete 02/28/19 Urine Culture Result 1 (ABDI) - Final, Complete Medication Medications Current Medications Aspirin (Hi Aspirin) 325 mg DAILYWBKFT PO ; Start 03/05/19 at 08:00 Cefdinir (Omnicef) 300 mg BID PO ; Start 03/04/19 at 21:00 Enoxaparin Sodium (Lovenox 40mg Syringe) 40 mg Q24H SQ Last administered on 03/04/19at 12:37; Start 03/04/19 at 11:30 Insulin Glargine (Lantus Syringe) 10 unit QHS SQ ; Start 03/04/19 at 21:00 Lactobacillus Rhamnosus (Culturelle) 1 cap BID PO ; Start 03/04/19 at 21:00 Comment Review of Relevant I have reviewed the following items chris (where applicable) has been applied. HECTOR SAWYER MD Mar 04, 2019 17:36
[2019-03-04 19:20] VITALS: BP 133/67
[2019-03-04] MEDS: ATORVASTATIN CALCIUM 40 MG TABLET. PO SCH (21:56)
[2019-03-04] MEDS: PATCH REMOVAL. MC SCH (21:56)
[2019-03-04] MEDS: CEFDINIR 300 MG CAPSULE PO SCH (21:56)
[2019-03-04] MEDS: LACTOBACILLUS RHAMNOSUS GG 1 CAPSULE. PO SCH (21:56)
[2019-03-04] MEDS: DIVALPROEX EXTENDED RELEASE 250 MG TAB.ER.24H. PO SCH (21:56)
[2019-03-04] MEDS: INSULIN GLARGINE SYRINGE. SQ SCH (22:13)
[2019-03-04 23:30] VITALS: BP 137/47
[2019-03-05] MEDS: AMINO AC 3%/ELECTROLYTE/GLYCER 1,000 ML IV SCH ×2 (02:43→15:00)
[2019-03-05 02:53] VITALS: BP 109/52
[2019-03-05 07:00] VITALS: BP 129/57
[2019-03-05] MEDS: ASPIRIN 325 MG TABLET PO SCH (08:23)
[2019-03-05] MEDS: LACTOBACILLUS RHAMNOSUS GG 1 CAPSULE. PO SCH ×2 (08:24→21:42)
[2019-03-05] MEDS: CEFDINIR 300 MG CAPSULE PO SCH ×2 (08:24→21:42)
[2019-03-05] MEDS: LIDOCAINE (700MG/PATCH) PATCH. TD SCH (08:24)
[2019-03-05] MEDS: INSULIN LISPRO 300 UNITS/3 ML VIAL. SQ SCH ×3 (08:43→17:00)
--- NOTE | 2019-03-05 09:09 | PDOC ---
PROGRESS NOTES History of Present Illness History of Present Illness VTE Prophylaxis Ordered VTE Prophylaxis Devices: No VTE Pharmacological Prophylaxi: Yes Assessment/Plan Assessment/Plan acute new right sided weakness, UTI Beta hemolytic Streptococcus, group B Greater than 100,000 colony forming units per mL Penicillin and ampicillin are drugs of choice for treatment of beta-hemolytic streptococcal infections. Acute ischemic infarct at the left thalamocapsular junction. Additional few foci of high intensity signal DWI without corresponding ADC signal, nonspecific but small acute infarcts not ruled out. 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 White matter changes likely secondary to chronic microvascular ischemic disease. CVA, acute on chronic, timeline > 8 hours, CT brain C/W chronic and subacute infarcts Acute metabolic encephalopathy Dm 1 with Hyperglycemia. , labile Vasomotor nephropathy, Diabetes with severe chronic atherosclerosis, multilevel. Cardiomyopathy The Ejection Fraction is estimated at 30%. 2017 Chronic systolic HF PAD HX splenic infarcts, old ON US 03/01 no hemodynamically significant right-sided carotid stenosis. There is moderate (50-69 percent) stenosis involving the left internal carotid artery with elevated end-diastolic velocity in the distal internal carotid artery. ON cta 03/02 no evidence for acute intracranial hemorrhage. Focal hypoattenuation along the left thalamus compatible with evolving infarct. There is a remote infarct involving the left frontal lobe. Mild intracranial atherosclerotic changes.no evidence for hemodynamically significant carotid stenosis by CT. There is no aneurysm, vascular malformation or high-grade stenosis/large vessel occlusion involving the [place]. Dm2, on insulin, NPO continue PPN Neuro consult PENDING CARDIOLOGY CONSULT poss UTI, + LE, dirty catch, new lethargy, IV abx, rocephin PT and OT and Speech admit VASCULAR SURGERY CONSULTED/ reviewed IV ROCEPHIN video swallow study 03/03 ASA 325 MG PO DAILY, CONT PPN - LANTUS 10 UNITS SQ Q HS 03/04 speech better, glucose suboptimal control Discharge Recommendations * [facility] Unit Treatment Frequency (Days/Week) * 5x over 7 days x2 wks 26 MIN PT EXAM, CHART REVIEW, > 50% OF TIME SPENT WITH EXAM, CHART REVIEW, PT CARE COORDINATION Vitals Vitals Vital Signs Date Time Temp Pulse Resp B/P (MAP) Pulse Ox O2 Delivery O2 Flow Rate FiO2 03/05/19 07:00 97.6 79 18 129/57 (81) 94 Room Air 97.6 Physical Exam General: Alert, Oriented X3, Cooperative, No acute distress, Other (Ox2) Heart: Regular rate (SR), Normal S1, Normal S2, No murmurs Lungs: Clear Abdomen: Normal bowel sounds, Soft, No tenderness Extremities: No cyanosis, No edema, Other (LEFT AKA) Skin: No breakdown, No significant lesion Labs LABS Laboratory Tests Test 03/04/19 11:00 03/04/19 16:51 03/04/19 21:40 03/05/19 07:23 Glucose (Fingerstick) 240 mg/dL (70-99) 218 mg/dL (70-99) 228 mg/dL (70-99) 175 mg/dL (70-99) Comment Review of Relevant I have reviewed the following items chris (where applicable) has been applied. Labs Laboratory Tests Test 03/03/19 11:52 03/03/19 17:08 03/03/19 20:32 03/04/19 07:07 Glucose (Fingerstick) 144 mg/dL (70-99) 158 mg/dL (70-99) 195 mg/dL (70-99) 179 mg/dL (70-99) Test 03/04/19 11:00 03/04/19 16:51 03/04/19 21:40 03/05/19 07:23 Glucose (Fingerstick) 240 mg/dL (70-99) 218 mg/dL (70-99) 228 mg/dL (70-99) 175 mg/dL (70-99) Laboratory Tests Test 03/04/19 11:00 03/04/19 16:51 03/04/19 21:40 03/05/19 07:23 Glucose (Fingerstick) 240 mg/dL (70-99) 218 mg/dL (70-99) 228 mg/dL (70-99) 175 mg/dL (70-99) Microbiology 02/28/19 Urine Culture - Final, Complete 02/28/19 Urine Culture Result 1 (ABDI) - Final, Complete Medications Current Medications Aspirin (Aspirin Rectal Supp) 300 mg 1X ONCE LA Last administered on 02/28/19at 01:30; Start 02/28/19 at 01:30; Stop 02/28/19 at 01:31; Status DC Ondansetron HCl (Zofran) 4 mg PRN Q8HRS PRN IV NAUSEA/VOMITING; Start 02/28/19 at 01:15; Stop 03/01/19 at 01:14; Status DC Insulin Human Lispro (HumaLOG) 0-5 UNITS TIDWMEALS SQ ; Start 02/28/19 at 08:00; Stop 02/28/19 at 09:28; Status DC Dextrose (Dextrose 50%-Water Syringe) 12.5 gm PRN Q15MIN PRN IV SEE COMMENTS; Start 02/28/19 at 01:15; Stop 02/28/19 at 05:38; Status DC Dextrose (Dextrose 50%-Water Syringe) 12.5 gm PRN Q15MIN PRN IV SEE COMMENTS; Start 02/28/19 at 05:30; Stop 02/28/19 at 09:27; Status DC Amino Acids/ Glycerin/ Electrolytes 1,000 ml @ 80 mls/hr [id number] IV Last administered on 03/04/19at 14:29; Start 02/28/19 at 10:00 Aspirin (Aspirin Rectal Supp) 300 mg DAILY RC Last administered on 03/03/19at 09:35; Start 03/01/19 at 09:00; Stop 03/04/19 at 11:24; Status DC Divalproex Sodium (Depakote Er) 250 mg QHS PO Last administered on 03/04/19at 21:56; Start 02/28/19 at 21:00 Insulin Human Lispro (HumaLOG) 0-9 UNITS TIDWMEALS SQ Last administered on 03/05/19at 08:43; Start 02/28/19 at 12:00 Dextrose (Dextrose 50%-Water Syringe) 12.5 gm PRN Q15MIN PRN IV SEE COMMENTS; Start 02/28/19 at 09:30 Insulin Glargine (Lantus Syringe) 10 unit QHS SQ Last administered on 03/03/19at 21:00; Start 02/28/19 at 21:00; Stop 03/04/19 at 13:37; Status DC Ceftriaxone Sodium (Rocephin) 1 gm Q24H IVP Last administered on 03/04/19at 12:38; Start 02/28/19 at 10:00; Stop 03/04/19 at 14:00; Status DC Cyanocobalamin (Vitamin B-12) 1,000 mcg 1X ONCE IM Last administered on 02/28/19 13:12; Start 02/28/19 at 13:00; Stop 02/28/19 at 13:01; Status DC Atorvastatin Calcium (Lipitor) 40 mg QHS PO Last administered on 03/04/19 21:56; Start 03/01/19 at 21:00 Lidocaine (Lidoderm) 1 patch DAILY TD Last administered on 03/05/19 08:24; Start 03/01/19 at 13:00 Miscellaneous (Lidoderm Patch Removal) 1 ea QHS MC Last administered on 03/04/19 21:56; Start 03/01/19 at 21:00 Labetalol HCl (Normodyne Iv Push) 10 mg PRN Q2HR PRN IVP HYPERTENSION; Start 03/01/19 at 14:45 Influenza Virus Vaccine Quadrival (Afluria Quad 2019-20 (3yr Up) Syringe) 0.5 ml ONCE ONCE VAX IM Last administered on 03/04/19 18:06; Start 03/02/19 at 13:00; Stop 03/02/19 at 13:01; Status DC Iohexol (Omnipaque 350 Mg/ml) 75 ml 1X ONCE IV Last administered on 03/02/19 15:02; Start 03/02/19 at 15:00; Stop 03/02/19 at 15:01; Status DC Info (CONTRAST GIVEN -- Rx MONITORING) 1 each PRN DAILY PRN MC SEE COMMENTS; Start 03/02/19 at 15:00; Stop 03/04/19 at 14:59; Status DC Cyanocobalamin (Vitamin B-12) 1,000 mcg DAILY ONCE IM Last administered on 03/03/19 09:35; Start 03/03/19 at 09:00; Stop 03/03/19 at 09:01; Status DC Barium Sulfate (Varibar Thin Liquid Apple) 148 gm 1X ONCE PO Last administered on 03/03/19 14:00; Start 03/03/19 at 13:15; Stop 03/03/19 at 13:17; Status DC Aspirin (Hi Aspirin) 325 mg DAILYWBKFT PO Last administered on 03/05/19 08:23; Start 03/05/19 at 08:00 Enoxaparin Sodium (Lovenox 40mg Syringe) 40 mg Q24H SQ Last administered on 03/04/19at 12:37; Start 03/04/19 at 11:30 Lactobacillus Rhamnosus (Culturelle) 1 cap BID PO Last administered on 03/05/19at 08:24; Start 03/04/19 at 21:00 Insulin Glargine (Lantus Syringe) 10 unit QHS SQ Last administered on 03/04/19at 22:13; Start 03/04/19 at 21:00 Cefdinir (Omnicef) 300 mg BID PO Last administered on 03/05/19at 08:24; Start 03/04/19 at 21:00 Active Scripts Active Reported Tylenol (Acetaminophen) 325 Mg Tablet 2 Tab PO PRN Q8HRS PRN Omeprazole 20 Mg Capsule.dr 1 Cap PO DAILY Mucinex (Guaifenesin) 600 Mg Tablet.er 1 Tab PO PRN BID PRN Imodium A-D (Loperamide HCl) 2 Mg Capsule 2 Mg PO PRN Q6HRS PRN Mirtazapine 15 Mg Tablet 7.5 Mg PO QHS Glucose Gel (Dextrose) 38 Gm Gel..gram. 38 Gm PO PRN Q15MIN PRN Glucagon Emergency Kit (Glucagon,Human Recombinant) 1 Mg Kit 1 Mg IM PRN Depakote Er (Divalproex Sodium) 250 Mg Tab.er.24h 1 Tab PO QHS Aspirin 325 Mg Tablet 1 Tab PO DAILY Zofran (Ondansetron Hcl) 4 Mg Tablet 1 Tab PO Q8HRS PRN Lisinopril 20 Mg Tablet 1 Tab PO BID Levemir (Insulin Detemir) 100 Unit/1 Ml Vial 45 Unit SQ QHS Aspirin 300 Mg Supp.rect 300 Mg RC DAILY Hydrocodone-Apap 5-325 (Hydrocodone Bit/Acetaminophen) 1 Each Tablet 1 Tab PO Q4HRS PRN Vitals/I & O Vital Sign - Last 24 Hours 03/04/19 03/04/19 03/04/19 03/04/19 11:18 14:45 19:20 20:15 Temp 97.9 97.4 97.6 97.9 97.4 97.6 Pulse 68 74 75 Resp 18 18 18 B/P (MAP) 132/74 (93) 128/62 (84) 133/67 (89) Pulse Ox 96 94 95 O2 Delivery Room Air Room Air Room Air Room Air 03/04/19 03/05/19 03/05/19 23:30 02:53 07:00 Temp 97.4 97.6 97.6 97.4 97.6 97.6 Pulse 74 75 79 Resp 18 15 18 B/P (MAP) 137/47 (77) 109/52 (71) 129/57 (81) Pulse Ox 96 95 94 O2 Delivery Room Air Room Air Room Air SHANIKA FERNÁNDEZ MD Mar 05, 2019 09:09
[2019-03-05 11:00] VITALS: BP 132/60
[2019-03-05] MEDS: ENOXAPARIN 40 MG/0.4 ML SYRINGE. SQ SCH (12:05)
[2019-03-05 15:00] VITALS: BP 113/52
[2019-03-05 19:42] VITALS: BP 136/51
[2019-03-05] MEDS: DIVALPROEX EXTENDED RELEASE 250 MG TAB.ER.24H. PO SCH (21:41)
[2019-03-05] MEDS: ATORVASTATIN CALCIUM 40 MG TABLET. PO SCH (21:42)
[2019-03-05] MEDS: INSULIN GLARGINE SYRINGE. SQ SCH (21:44)
[2019-03-05] MEDS: PATCH REMOVAL. MC SCH (21:48)
[2019-03-05 23:15] VITALS: BP 149/43
[2019-03-06 03:12] VITALS: BP 151/50
[2019-03-06 07:30] VITALS: BP 133/46
[2019-03-06] MEDS: INSULIN LISPRO 300 UNITS/3 ML VIAL. SQ SCH ×3 (08:00→17:00)
[2019-03-06] MEDS: LIDOCAINE (700MG/PATCH) PATCH. TD SCH (09:00)
[2019-03-06] MEDS: AMINO AC 3%/ELECTROLYTE/GLYCER 1,000 ML IV SCH (09:39)
[2019-03-06] MEDS: LACTOBACILLUS RHAMNOSUS GG 1 CAPSULE. PO SCH ×2 (09:39→20:28)
[2019-03-06] MEDS: ASPIRIN 325 MG TABLET PO SCH (09:39)
[2019-03-06] MEDS: CEFDINIR 300 MG CAPSULE PO SCH ×2 (09:39→20:28)
--- NOTE | 2019-03-06 10:27 | PDOC ---
PROGRESS NOTES History of Present Illness History of Present Illness VTE Prophylaxis Ordered VTE Prophylaxis Devices: No VTE Pharmacological Prophylaxi: Yes Assessment/Plan Assessment/Plan acute new right sided weakness, UTI Beta hemolytic Streptococcus, group B Greater than 100,000 colony forming units per mL Penicillin and ampicillin are drugs of choice for treatment of beta-hemolytic streptococcal infections. Acute ischemic infarct at the left thalamocapsular junction. Additional few foci of high intensity signal DWI without corresponding ADC signal, nonspecific but small acute infarcts not ruled out. 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 White matter changes likely secondary to chronic microvascular ischemic disease. CVA, acute on chronic, timeline > 8 hours, CT brain C/W chronic and subacute infarcts Acute metabolic encephalopathy Dm 1 with Hyperglycemia. , labile Vasomotor nephropathy, Diabetes with severe chronic atherosclerosis, multilevel. Cardiomyopathy The Ejection Fraction is estimated at 30%. 2017 Chronic systolic HF PAD HX splenic infarcts, old hx elevated ferritin 2017 lab ON US 03/01 no hemodynamically significant right-sided carotid stenosis. There is moderate (50-69 percent) stenosis involving the left internal carotid artery with elevated end-diastolic velocity in the distal internal carotid artery. ON cta 03/02 no evidence for acute intracranial hemorrhage. Focal hypoattenuation along the left thalamus compatible with evolving infarct. There is a remote infarct involving the left frontal lobe. Mild intracranial atherosclerotic changes.no evidence for hemodynamically significant carotid stenosis by CT. There is no aneurysm, vascular malformation or high-grade stenosis/large vessel occlusion involving the [place]. Dm2, on insulin, soft diet, not eating a lot yet continue PPN Neuro consult CARDIOLOGY CONSULT poss UTI, + LE, dirty catch, new lethargy, IV abx, rocephin PT and OT and Speech admit VASCULAR SURGERY CONSULTED/ reviewed IV ROCEPHIN video swallow study 03/03 ASA 325 MG PO DAILY, CONT PPN 03-04 LANTUS 10 UNITS SQ Q HS FERRITIN LEVEL PENDING, gi consulted 03/04 speech better, glucose suboptimal control 03-06 snf bed pending, ppn at 40cc./hr Discharge Recommendations * [facility] Treatment Frequency (Days/Week) * 5x over 7 days x2 wks 26 MIN PT EXAM, CHART REVIEW, > 50% OF TIME SPENT WITH EXAM, CHART REVIEW, PT CARE COORDINATION Vitals Vitals Vital Signs Date Time Temp Pulse Resp B/P (MAP) Pulse Ox O2 Delivery O2 Flow Rate FiO2 03/06/19 07:30 97.8 81 18 133/46 (75) 97 Room Air 97.8 Physical Exam General: Alert, Oriented X3, Cooperative, No acute distress, Other (Ox2) Heart: Regular rate (SR), Normal S1, Normal S2, No murmurs Lungs: Clear Abdomen: Normal bowel sounds, Soft, No tenderness Extremities: No clubbing, No cyanosis, No edema, Other (LEFT AKA) Skin: No breakdown, No significant lesion Labs LABS Laboratory Tests Test 03/05/19 11:51 03/05/19 17:07 03/05/19 21:38 03/06/19 07:44 Glucose (Fingerstick) 135 mg/dL (70-99) 190 mg/dL (70-99) 253 mg/dL (70-99) 175 mg/dL (70-99) Comment Review of Relevant I have reviewed the following items chris (where applicable) has been applied. Labs Laboratory Tests Test 03/04/19 11:00 03/04/19 16:51 03/04/19 21:40 03/05/19 07:23 Glucose (Fingerstick) 240 mg/dL (70-99) 218 mg/dL (70-99) 228 mg/dL (70-99) 175 mg/dL (70-99) Test 03/05/19 11:51 03/05/19 17:07 03/05/19 21:38 03/06/19 07:44 Glucose (Fingerstick) 135 mg/dL (70-99) 190 mg/dL (70-99) 253 mg/dL (70-99) 175 mg/dL (70-99) Laboratory Tests Test 03/05/19 11:51 03/05/19 17:07 03/05/19 21:38 03/06/19 07:44 Glucose (Fingerstick) 135 mg/dL (70-99) 190 mg/dL (70-99) 253 mg/dL (70-99) 175 mg/dL (70-99) Microbiology 02/28/19 Urine Culture - Final, Complete 02/28/19 Urine Culture Result 1 (ABDI) - Final, Complete Medications Current Medications Aspirin (Aspirin Rectal Supp) 300 mg 1X ONCE SD Last administered on 02/28/19at 01:30; Start 02/28/19 at 01:30; Stop 02/28/19 at 01:31; Status DC Ondansetron HCl (Zofran) 4 mg PRN Q8HRS PRN IV NAUSEA/VOMITING; Start 02/28/19 at 01:15; Stop 03/01/19 at 01:14; Status DC Insulin Human Lispro (HumaLOG) 0-5 UNITS TIDWMEALS SQ ; Start 02/28/19 at 08:00; Stop 02/28/19 at 09:28; Status DC Dextrose (Dextrose 50%-Water Syringe) 12.5 gm PRN Q15MIN PRN IV SEE COMMENTS; Start 02/28/19 at 01:15; Stop 02/28/19 at 05:38; Status DC Dextrose (Dextrose 50%-Water Syringe) 12.5 gm PRN Q15MIN PRN IV SEE COMMENTS; Start 02/28/19 at 05:30; Stop 02/28/19 at 09:27; Status DC Amino Acids/ Glycerin/ Electrolytes 1,000 ml @ 40 mls/hr Q24H IV Last administered on 03/06/19at 09:39; Start 02/28/19 at 10:00 Aspirin (Aspirin Rectal Supp) 300 mg DAILY RC Last administered on 03/03/19at 09:35; Start 03/01/19 at 09:00; Stop 03/04/19 at 11:24; Status DC Divalproex Sodium (Depakote Er) 250 mg QHS PO Last administered on 03/05/19at 21:41; Start 02/28/19 at 21:00 Insulin Human Lispro (HumaLOG) 0-9 UNITS TIDWMEALS SQ Last administered on 03/05/19at 08:43; Start 02/28/19 at 12:00 Dextrose (Dextrose 50%-Water Syringe) 12.5 gm PRN Q15MIN PRN IV SEE COMMENTS; Start 02/28/19 at 09:30 Insulin Glargine (Lantus Syringe) 10 unit QHS SQ Last administered on 03/03/19at 21:00; Start 02/28/19 at 21:00; Stop 03/04/19 at 13:37; Status DC Ceftriaxone Sodium (Rocephin) 1 gm Q24H IVP Last administered on 03/04/19at 12:38; Start 02/28/19 at 10:00; Stop 03/04/19 at 14:00; Status DC Cyanocobalamin (Vitamin B-12) 1,000 mcg 1X ONCE IM Last administered on 02/28/19at 13:12; Start 02/28/19 at 13:00; Stop 02/28/19 at 13:01; Status DC Atorvastatin Calcium (Lipitor) 40 mg QHS PO Last administered on 03/05/19at 21:42; Start 03/01/19 at 21:00 Lidocaine (Lidoderm) 1 patch DAILY TD Last administered on 03/05/19at 08:24; Start 03/01/19 at 13:00 Miscellaneous (Lidoderm Patch Removal) 1 ea QHS MC Last administered on 03/05/19 21:48; Start 03/01/19 at 21:00 Labetalol HCl (Normodyne Iv Push) 10 mg PRN Q2HR PRN IVP HYPERTENSION; Start 03/01/19 at 14:45 Influenza Virus Vaccine Quadrival (Afluria Quad 2019-20 (3yr Up) Syringe) 0.5 ml ONCE ONCE VAX IM Last administered on 03/04/19at 18:06; Start 03/02/19 at 13:00; Stop 03/02/19 at 13:01; Status DC Iohexol (Omnipaque 350 Mg/ml) 75 ml 1X ONCE IV Last administered on 03/02/19at 15:02; Start 03/02/19 at 15:00; Stop 03/02/19 at 15:01; Status DC Info (CONTRAST GIVEN -- Rx MONITORING) 1 each PRN DAILY PRN MC SEE COMMENTS; Start 03/02/19 at 15:00; Stop 03/04/19 at 14:59; Status DC Cyanocobalamin (Vitamin B-12) 1,000 mcg DAILY ONCE IM Last administered on 03/03/19at 09:35; Start 03/03/19 at 09:00; Stop 03/03/19 at 09:01; Status DC Barium Sulfate (Varibar Thin Liquid Apple) 148 gm 1X ONCE PO Last administered on 03/03/19at 14:00; Start 03/03/19 at 13:15; Stop 03/03/19 at 13:17; Status DC Aspirin (Hi Aspirin) 325 mg DAILYWBKFT PO Last administered on 03/06/19at 09:39; Start 03/05/19 at 08:00 Enoxaparin Sodium (Lovenox 40mg Syringe) 40 mg Q24H SQ Last administered on 03/05/19at 12:05; Start 03/04/19 at 11:30 Lactobacillus Rhamnosus (Culturelle) 1 cap BID PO Last administered on at 09:39; Start 03/04/19 at 21:00 Insulin Glargine (Lantus Syringe) 10 unit QHS SQ Last administered on 03/05/19at 21:44; Start 03/04/19 at 21:00 Cefdinir (Omnicef) 300 mg BID PO Last administered on 03/06/19at 09:39; Start 03/04/19 at 21:00 Active Scripts Active Reported Tylenol (Acetaminophen) 325 Mg Tablet 2 Tab PO PRN Q8HRS PRN Omeprazole 20 Mg Capsule.dr 1 Cap PO DAILY Mucinex (Guaifenesin) 600 Mg Tablet.er 1 Tab PO PRN BID PRN Imodium A-D (Loperamide HCl) 2 Mg Capsule 2 Mg PO PRN Q6HRS PRN Mirtazapine 15 Mg Tablet 7.5 Mg PO QHS Glucose Gel (Dextrose) 38 Gm Gel..gram. 38 Gm PO PRN Q15MIN PRN Glucagon Emergency Kit (Glucagon,Human Recombinant) 1 Mg Kit 1 Mg IM PRN Depakote Er (Divalproex Sodium) 250 Mg Tab.er.24h 1 Tab PO QHS Aspirin 325 Mg Tablet 1 Tab PO DAILY Zofran (Ondansetron Hcl) 4 Mg Tablet 1 Tab PO Q8HRS PRN Lisinopril 20 Mg Tablet 1 Tab PO BID Levemir (Insulin Detemir) 100 Unit/1 Ml Vial 45 Unit SQ QHS Aspirin 300 Mg Supp.rect 300 Mg RC DAILY Hydrocodone-Apap 5-325 (Hydrocodone Bit/Acetaminophen) 1 Each Tablet 1 Tab PO Q4HRS PRN Vitals/I & O Vital Sign - Last 24 Hours 03/05/19 03/05/19 03/05/19 03/05/19 11:00 15:00 19:42 23:15 Temp 97.7 98.0 98.0 98.8 97.7 98.0 98.0 98.8 Pulse 80 79 77 77 Resp 18 18 18 18 B/P (MAP) 132/60 (84) 113/52 (72) 136/51 (79) 149/43 (78) Pulse Ox 92 94 94 96 O2 Delivery Room Air Room Air Room Air Room Air 03/06/19 03/06/19 03:12 07:30 Temp 98.4 97.8 98.4 97.8 Pulse 75 81 Resp 18 18 B/P (MAP) 151/50 (83) 133/46 (75) Pulse Ox 98 97 O2 Delivery Room Air Room Air Intake and Output 03/05/19 03/05/19 03/06/19 14:59 22:59 06:59 Intake Total 420 ml 300 ml Output Total 0 ml Balance 420 ml 300 ml SHANIKA FERNÁNDEZ MD Mar 06, 2019 10:27
[2019-03-06 11:00] VITALS: BP 121/58
[2019-03-06] MEDS: ENOXAPARIN 40 MG/0.4 ML SYRINGE. SQ SCH (12:26)
[2019-03-06 15:07] VITALS: BP 144/56
[2019-03-06 19:40] VITALS: BP 124/79
[2019-03-06] MEDS ORDERED: ACETAMINOPHEN 500 MG TABLET PO PRN (20:15)
[2019-03-06] MEDS ORDERED: ONDANSETRON PF 4 MG/2 ML VIAL. IVP PRN (20:15)
[2019-03-06] MEDS ORDERED: TEMAZEPAM 7.5 MG CAPSULE PO PRN (20:15)
[2019-03-06] MEDS: DIVALPROEX EXTENDED RELEASE 250 MG TAB.ER.24H. PO SCH (20:28)
[2019-03-06] MEDS: ATORVASTATIN CALCIUM 40 MG TABLET. PO SCH (20:28)
[2019-03-06] MEDS: PATCH REMOVAL. MC SCH (20:29)
[2019-03-06] MEDS: CARVEDILOL 3.125 MG TABLET. PO SCH (21:25)
[2019-03-06] MEDS: INSULIN GLARGINE SYRINGE. SQ SCH (21:31)
[2019-03-06 21:38] LABS: CALCIUM 9.4 mg/dL (8.5-10.1); MAGNESIUM 2.1 mg/dL (1.8-2.4); POTASSIUM 4.8 mmol/L (3.5-5.1)
[2019-03-06 23:00] VITALS: BP 145/57
[2019-03-07 03:47] VITALS: BP 152/47
[2019-03-07 07:00] VITALS: BP 142/68
[2019-03-07 08:11] VITALS: BP 142/68
--- NOTE | 2019-03-07 08:18 | RAD ---
Examination: ABDOMEN COMPLETE History: Hepatomegaly Comparison/Correlation: 08/06/2016 abdominal ultrasound exam Findings: Complete upper abdominal ultrasound exam was performed. Gallbladder wall thickness is 0.5 cm and multiple calculi are present within the gallbladder. No pericholecystic fluid. Liver length is 16.2 cm. Common bile duct measuring 0.3 cm diameter is noted. No biliary dilatation. Portal vein and hepatic veins are unremarkable. Right kidney measures 12.3 cm x 4.9 cm x 5.4 cm. Left kidney measures 11.1 cm x 5.1 cm x 5.4 cm. No hydronephrosis. Proximal pancreas is normal. Distal pancreas is obscured by bowel gas. Abdominal aorta is not visualized. Inferior vena cava is not visualized. There is a 1.5 cm diameter hyperechoic well demarcated lesion involving the spleen. No flow evident within it. Impression: Mild fatty infiltration of the liver. Hyperechoic lesion within the spleen is present. This probably represents a hemangioma or other benign process but it is not seen on the prior ultrasound exam of 08/06/2016 and no corresponding finding is still needed on the noncontrast CT abdomen and pelvis without contrast 01/26/2011. Consider follow-up ultrasound exam in 6 months to assess stability if other prior exams are not available documenting stability. Electronically signed by: Emre Junior MD (03/07/2019 8:16 AM) [facility]
--- NOTE | 2019-03-07 08:29 | PDOC ---
PROGRESS NOTES Chief Complaint Chief Complaint Assessment/Plan Acute CVA, acute on chronic - infarct at the left thalamocapsular junction. Additional few foci of high intensity signal DWI without corresponding ADC signal, nonspecific Old infarct in the left medial frontal lobe and right superior cerebellar hemisphere UTI - GBS Acute metabolic encephalopathy Dm 1 with Hyperglycemia, labile RODRIGO - 2/2 Vasomotor nephropathy Diabetes with severe chronic atherosclerosis, multilevel. Cardiomyopathy The Ejection Fraction is estimated at 30%. 2017 Chronic systolic HF PAD HX splenic infarcts, old hx elevated ferritin 2017 lab There is moderate (50-69 percent) stenosis involving the left internal carotid artery with elevated end-diastolic velocity in the distal internal carotid artery. 03/04 speech better, glucose suboptimal control 03-06 snf bed pending, ppn at 40cc./hr Discharge Recommendations * [facility] Unit Treatment Frequency (Days/Week) * 5x over 7 days x2 wks 26 MIN PT EXAM, CHART REVIEW, > 50% OF TIME SPENT WITH EXAM, CHART REVIEW, PT CARE COORDINATION History of Present Illness History of Present Illness Mr Van is a 68-year-old male w/ PMHx CAD s/p CABG, HTN, HLD, DM2, s/p L BKA, prior CVA, dementia who is admitted with new right sided weakness, aphasia, and confusion. Has been found with new CVA. Seen by neurology in consultation as well as palliative care, vascular surgery, cardiology and gastroenterology. He is seen eating mashed potatoes today well with his left hand. He is stating he is ready to leave. Denies any CP or SOB Vitals Vitals Vital Signs Date Time Temp Pulse Resp B/P (MAP) Pulse Ox O2 Delivery O2 Flow Rate FiO2 03/07/19 08:11 97.9 88 20 142/68 (92) 96 Room Air 97.9 Physical Exam General: Alert, Cooperative, No acute distress, Other (Ox2) Heart: Regular rate (SR), Normal S1, Normal S2, No murmurs Lungs: Clear Abdomen: Normal bowel sounds, Soft, No tenderness Extremities: No clubbing, No cyanosis, No edema, Other Skin: No breakdown, No significant lesion Labs LABS Laboratory Tests Test 03/06/19 11:28 03/06/19 16:27 03/06/19 17:35 03/06/19 20:54 Glucose (Fingerstick) 285 mg/dL (70-99) 167 mg/dL (70-99) 228 mg/dL (70-99) Potassium Level 4.8 mmol/L (3.5-5.1) Calcium Level 9.4 mg/dL (8.5-10.1) Magnesium Level 2.1 mg/dL (1.8-2.4) Ferritin 280 ng/mL (26-388) Test 03/07/19 07:19 Glucose (Fingerstick) 188 mg/dL (70-99) Comment Review of Relevant I have reviewed the following items chris (where applicable) has been applied. Labs Laboratory Tests Test 03/05/19 11:51 03/05/19 17:07 03/05/19 21:38 03/06/19 07:44 Glucose (Fingerstick) 135 mg/dL (70-99) 190 mg/dL (70-99) 253 mg/dL (70-99) 175 mg/dL (70-99) Test 03/06/19 11:28 03/06/19 16:27 03/06/19 17:35 03/06/19 20:54 Glucose (Fingerstick) 285 mg/dL (70-99) 167 mg/dL (70-99) 228 mg/dL (70-99) Potassium Level 4.8 mmol/L (3.5-5.1) Calcium Level 9.4 mg/dL (8.5-10.1) Magnesium Level 2.1 mg/dL (1.8-2.4) Ferritin 280 ng/mL (26-388) Test 03/07/19 07:19 Glucose (Fingerstick) 188 mg/dL (70-99) Laboratory Tests Test 03/06/19 11:28 03/06/19 16:27 03/06/19 17:35 03/06/19 20:54 Glucose (Fingerstick) 285 mg/dL (70-99) 167 mg/dL (70-99) 228 mg/dL (70-99) Potassium Level 4.8 mmol/L (3.5-5.1) Calcium Level 9.4 mg/dL (8.5-10.1) Magnesium Level 2.1 mg/dL (1.8-2.4) Ferritin 280 ng/mL (26-388) Test 03/07/19 07:19 Glucose (Fingerstick) 188 mg/dL (70-99) Microbiology 02/28/19 Urine Culture - Final, Complete 02/28/19 Urine Culture Result 1 (ABDI) - Final, Complete Medications Current Medications Aspirin (Aspirin Rectal Supp) 300 mg 1X ONCE [place] Last administered on 02/28/19at 01:30; Start 02/28/19 at 01:30; Stop 02/28/19 at 01:31; Status DC Ondansetron HCl (Zofran) 4 mg PRN Q8HRS PRN IV NAUSEA/VOMITING; Start 02/28/19 at 01:15; Stop 03/01/19 at 01:14; Status DC Insulin Human Lispro (HumaLOG) 0-5 UNITS TIDWMEALS SQ ; Start 02/28/19 at 08:00; Stop 02/28/19 at 09:28; Status DC Dextrose (Dextrose 50%-Water Syringe) 12.5 gm PRN Q15MIN PRN IV SEE COMMENTS; Start 02/28/19 at 01:15; Stop 02/28/19 at 05:38; Status DC Dextrose (Dextrose 50%-Water Syringe) 12.5 gm PRN Q15MIN PRN IV SEE COMMENTS; Start 02/28/19 at 05:30; Stop 02/28/19 at 09:27; Status DC Amino Acids/ Glycerin/ Electrolytes 1,000 ml @ 40 mls/hr Q24H IV Last administered on 03/06/19at 09:39; Start 02/28/19 at 10:00 Aspirin (Aspirin Rectal Supp) 300 mg DAILY RC Last administered on 03/03/19at 09:35; Start 03/01/19 at 09:00; Stop 03/04/19 at 11:24; Status DC Divalproex Sodium (Depakote Er) 250 mg QHS PO Last administered on 03/06/19at 20:28; Start 02/28/19 at 21:00 Insulin Human Lispro (HumaLOG) 0-9 UNITS TIDWMEALS SQ Last administered on 03/06/19at 12:31; Start 02/28/19 at 12:00 Dextrose (Dextrose 50%-Water Syringe) 12.5 gm PRN Q15MIN PRN IV SEE COMMENTS; Start 02/28/19 at 09:30 Insulin Glargine (Lantus Syringe) 10 unit QHS SQ Last administered on 03/03/19at 21:00; Start 02/28/19 at 21:00; Stop 03/04/19 at 13:37; Status DC Ceftriaxone Sodium (Rocephin) 1 gm Q24H IVP Last administered on 03/04/19at 12:38; Start 02/28/19 at 10:00; Stop 03/04/19 at 14:00; Status DC Cyanocobalamin (Vitamin B-12) 1,000 mcg 1X ONCE IM Last administered on 02/28/19at 13:12; Start 02/28/19 at 13:00; Stop 02/28/19 at 13:01; Status DC Atorvastatin Calcium (Lipitor) 40 mg QHS PO Last administered on 03/06/19at 20:28; Start 03/01/19 at 21:00 Lidocaine (Lidoderm) 1 patch DAILY TD Last administered on 03/05/19at 08:24; Start 03/01/19 at 13:00 Miscellaneous (Lidoderm Patch Removal) 1 ea QHS MC Last administered on 03/06/19at 20:29; Start 03/01/19 at 21:00 Labetalol HCl (Normodyne Iv Push) 10 mg PRN Q2HR PRN IVP HYPERTENSION; Start 03/01/19 at 14:45 Influenza Virus Vaccine Quadrival (Afluria Quad 2019-20 (3yr Up) Syringe) 0.5 ml ONCE ONCE VAX IM Last administered on 03/04/19at 18:06; Start 03/02/19 at 13:00; Stop 03/02/19 at 13:01; Status DC Iohexol (Omnipaque 350 Mg/ml) 75 ml 1X ONCE IV Last administered on 03/02/19at 15:02; Start 03/02/19 at 15:00; Stop 03/02/19 at 15:01; Status DC Info (CONTRAST GIVEN -- Rx MONITORING) 1 each PRN DAILY PRN MC SEE COMMENTS; Start 03/02/19 at 15:00; Stop 03/04/19 at 14:59; Status DC Cyanocobalamin (Vitamin B-12) 1,000 mcg DAILY ONCE IM Last administered on 03/03/19at 09:35; Start 03/03/19 at 09:00; Stop 03/03/19 at 09:01; Status DC Barium Sulfate (Varibar Thin Liquid Apple) 148 gm 1X ONCE PO Last administered on 03/03/19at 14:00; Start 03/03/19 at 13:15; Stop 03/03/19 at 13:17; Status DC Aspirin (Hi Aspirin) 325 mg DAILYWBKFT PO Last administered on 03/06/19at 09:39; Start 03/05/19 at 08:00 Enoxaparin Sodium (Lovenox 40mg Syringe) 40 mg Q24H SQ Last administered on 03/06/19 12:26; Start 03/04/19 at 11:30 Lactobacillus Rhamnosus (Culturelle) 1 cap BID PO Last administered on 03/06/19 20:28; Start 03/04/19 at 21:00 Insulin Glargine (Lantus Syringe) 10 unit QHS SQ Last administered on 03/06/19 21:31; Start 03/04/19 at 21:00 Cefdinir (Omnicef) 300 mg BID PO Last administered on 03/06/19 20:28; Start 03/04/19 at 21:00 Ondansetron HCl (Zofran) 4 mg PRN Q6HRS PRN IVP NAUSEA/VOMITING; Start 03/06/19 at 20:15 Acetaminophen (Tylenol) 500 mg PRN Q6HRS PRN PO MILD PAIN / TEMP; Start 03/06/19 at 20:15 Temazepam (Restoril) 7.5 mg PRN QHS PRN PO INSOMNIA; Start 03/06/19 at 20:15 Carvedilol (Coreg) 3.125 mg BIDWMEALS PO Last administered on 03/06/19 21:25; Start 03/06/19 at 22:00 Active Scripts Active Reported Tylenol (Acetaminophen) 325 Mg Tablet 2 Tab PO PRN Q8HRS PRN Omeprazole 20 Mg Capsule. 1 Cap PO DAILY Mucinex (Guaifenesin) 600 Mg Tablet.er 1 Tab PO PRN BID PRN Imodium A-D (Loperamide HCl) 2 Mg Capsule 2 Mg PO PRN Q6HRS PRN Mirtazapine 15 Mg Tablet 7.5 Mg PO QHS Glucose Gel (Dextrose) 38 Gm Gel..gram. 38 Gm PO PRN Q15MIN PRN Glucagon Emergency Kit (Glucagon,Human Recombinant) 1 Mg Kit 1 Mg IM PRN Depakote Er (Divalproex Sodium) 250 Mg Tab.er.24h 1 Tab PO QHS Aspirin 325 Mg Tablet 1 Tab PO DAILY Zofran (Ondansetron Hcl) 4 Mg Tablet 1 Tab PO Q8HRS PRN Lisinopril 20 Mg Tablet 1 Tab PO BID Levemir (Insulin Detemir) 100 Unit/1 Ml Vial 45 Unit SQ QHS Aspirin 300 Mg Supp.rect 300 Mg RC DAILY Hydrocodone-Apap 5-325 (Hydrocodone Bit/Acetaminophen) 1 Each Tablet 1 Tab PO Q4HRS PRN Vitals/I & O Vital Sign - Last 24 Hours 03/06/19 03/06/19 03/06/19 03/06/19 11:00 15:07 19:40 20:20 Temp 97.9 99.1 97.6 97.9 99.1 97.6 Pulse 81 87 78 Resp 18 17 20 B/P (MAP) 121/58 (79) 144/56 (85) 124/79 (94) Pulse Ox 93 95 95 O2 Delivery Room Air Room Air Room Air Room Air 03/06/19 03/06/19 03/07/19 03/07/19 21:25 23:00 03:47 07:00 Temp 98.6 97.6 97.9 98.6 97.6 97.9 Pulse 78 64 64 65 Resp 20 20 18 B/P (MAP) 124/79 145/57 (86) 152/47 (82) 142/68 (92) Pulse Ox 94 95 96 O2 Delivery Room Air Room Air Room Air 03/07/19 08:11 Temp 97.9 97.9 Pulse 88 Resp 20 B/P (MAP) 142/68 (92) Pulse Ox 96 O2 Delivery Room Air Intake and Output 03/06/19 03/06/19 03/07/19 14:59 22:59 06:59 Intake Total 220 ml 200 ml 480 ml Balance 220 ml 200 ml 480 ml LUCILA PULLIAM MD Mar 07, 2019 08:29
[2019-03-07] MEDS: LIDOCAINE (700MG/PATCH) PATCH. TD SCH (09:00)
[2019-03-07] MEDS: ASPIRIN 325 MG TABLET PO SCH (09:03)
[2019-03-07] MEDS: LACTOBACILLUS RHAMNOSUS GG 1 CAPSULE. PO SCH (09:03)
[2019-03-07] MEDS: CARVEDILOL 3.125 MG TABLET. PO SCH (09:04)
[2019-03-07] MEDS: CEFDINIR 300 MG CAPSULE PO SCH (09:04)
[2019-03-07] MEDS: INSULIN LISPRO 300 UNITS/3 ML VIAL. SQ SCH ×2 (09:24→12:58)
--- NOTE | 2019-03-07 10:21 | PDOC2 ---
GI CONSULT Reason For Consult: possible hemochromatosis HPI: HPI: 68 y/o male admitted on 02/28. Brain MRI showed acute ischemic infarct at the left thalamocapsular junction. No meaningful information from patient. We have seen in the past for elevated LFTs possibly related to hepatic infarct. PMH: PMH: CAD, HTN, HLD, PAD, TATIANA, CVA, OA, CKD, DM CABG, left AKA Social History: Smoke: Quit ROS: Difficult to obtain, denies pain. Vitals: Vitals: Vital Signs Date Time Temp Pulse Resp B/P (MAP) Pulse Ox O2 Delivery O2 Flow Rate FiO2 03/07/19 09:04 88 142/68 03/07/19 08:11 97.9 20 96 Room Air 97.9 Labs: Labs: Laboratory Tests Test 03/06/19 11:28 03/06/19 16:27 03/06/19 17:35 03/06/19 20:54 Glucose (Fingerstick) 285 mg/dL (70-99) 167 mg/dL (70-99) 228 mg/dL (70-99) Potassium Level 4.8 mmol/L (3.5-5.1) Calcium Level 9.4 mg/dL (8.5-10.1) Magnesium Level 2.1 mg/dL (1.8-2.4) Ferritin 280 ng/mL (26-388) Test 03/07/19 07:19 Glucose (Fingerstick) 188 mg/dL (70-99) URINE CULTURE Final Final report URINE CULTURE RES 1 Final Comment Beta hemolytic Streptococcus, group B Allergies: Coded Allergies: No Known Drug Allergies (Unverified , 07/29/16) Medications: Current Medications Medications (Trade) Dose Ordered Sig/[place] Route PRN Reason Start Time Stop Time Status Last Admin Dose Admin Carvedilol (Coreg) 3.125 mg BIDWMEALS PO 03/06/19 22:00 03/07/19 09:04 Imaging: Imaging: Abd US 03/07 Impression: Mild fatty infiltration of the liver. Hyperechoic lesion within the spleen is present. This probably represents a hemangioma or other benign process but it is not seen on the prior ultrasound exam of 08/06/2016 and no corresponding finding is still needed on the noncontrast CT abdomen and pelvis without contrast 01/26/2011. Consider follow-up ultrasound exam in 6 months to assess stability if other prior exams are not available documenting stability. Videoswallow 03/03 Findings/ Impression: Transient penetration of thin consistency barium. There was no laryngeal penetration or aspiration of solid, puree, honey thick and nectar consistency barium observed. IMPRESSIONS: Mild oropharyngeal dysphagia. Transient penetration of thin liquids, ejected at swallow. Low risk of aspiration. Mildly prolonged 'mastication' d/t edentulous status. Would benefit from modified diet d/t same. Anticipate safe intake. Unclear if pt will meet nutritional needs given frequent periods of drowsiness which may interfered w/intake at meals. RECOMMENDATIONS: Initiate dysphagia II w/thin liquids. NO straws. Assist w/meals PRN. [employer] will f/u per POC. Head/Neck CTA 03/02 IMPRESSION: 1. There is no evidence for acute intracranial hemorrhage. Focal hypoattenuation along the left thalamus compatible with evolving infarct. There is a remote infarct involving the left frontal lobe. Mild intracranial atherosclerotic c hanges. 2. There is no evidence for hemodynamically significant carotid stenosis by CT. 3. There is no aneurysm, vascular malformation or high-grade stenosis/large vessel occlusion involving the [place] of [place]. Carotid Doppler 03/01 IMPRESSION: 1. There is no hemodynamically significant right-sided carotid stenosis. There is moderate (50-69 percent) stenosis involving the left internal carotid artery with elevated end-diastolic velocity in the distal internal carotid artery. 2. Right vertebral artery is not visualized. Antegrade flow noted in the left vertebral artery. 3. Evaluation of the carotid vasculature and measurements for luminal stenosis was performed utilizing NASCET criteria. EEG 03/01 IMPRESSION: This EEG is a mildly abnormal study for the awake, drowsy and sleep states. The posterior dominant rhythm of 7-8 Hz is slow for age. No focal, lateralizing, specific epileptiform discharge or electrographic seizure is seen. Echocardiogram 03/01 <Conclusion> The left ventricular systolic function is mildly reduced. The Ejection Fraction is 45-50%. The inferior wall and basal to mid inferoseptal wall is moderately hypokinetic. The interatrial septum is intact with no evidence for an atrial septal defect or patent foramen ovale as noted on 2-D or Doppler imaging. No evidence of right to left shunting on agitated saline study, although this study is SUBOPTIMAL. If there is high clinical suspicion, consider LOREN. Brain MRI 02/28 IMPRESSION: 1. Acute ischemic infarct at the left thalamocapsular junction. Additional few foci of high intensity signal DWI without corresponding ADC signal, nonspecific but small acute infarcts not ruled out. 2. 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 3. White matter changes likely secondary to chronic microvascular ischemic disease. CXR 02/28 Impression: 1. Prominence of the cardiomediastinal silhouette which may be in part related to low lung volumes. No radiographic manifestations of overt failure. 2. Bibasilar volume loss. Head CT 02/28 IMPRESSION: 1. Rounded focus of low attenuation at the left thalamocapsular junction which was not present on the 07/28/2016 comparison. This is most compatible with an age indeterminant director style infarct that could be accurately aged by MRI as deemed clinically necessary. 2. Areas of low attenuation involving the medial right cerebellar hemisphere as well as the left paramedian frontal lobe. The abnormality involving the left frontal lobe does appear to have been present on the 2016 comparison. The cerebellar hemisphere finding is new but exhibits an appearance most suggestive of encephalomalacia from a remote infarct. Again, this could be more accurately aged by MRI. 3. No acute intracranial hemorrhage. No mass effect, midline shift or hydroceph alus. 4. White matter findings which are nonspecific but can be seen in the setting of chronic microvascular ischemic change. 5. Mild parenchymal volume loss. Intracranial atherosclerotic calcifications. PE: GEN: NAD - breakfast tray untouched LUNGS: CTAB HEART: RRR ABD: NABS, S/ND/NT EXTREM: [place] NEURO/PSYCH: awake/alert, responds inappropriately to questions A/P: A/P: Left thalamocapsular junction B12 deficiency Fatty liver Cholelithiasis Hyperechoic splenic lesion -- Asked to see for possible hemochromatosis - unable to obtain any history re: this from pt, staff, and chart. LFTs normal. US w/ fatty liver. Check iron profile. Other per Dr. Ojeda. KANCHAN BALLARD Mar 07, 2019 10:21
[2019-03-07] MEDS: AMINO AC 3%/ELECTROLYTE/GLYCER 1,000 ML IV SCH (10:38)
[2019-03-07 11:44] VITALS: BP 158/80
[2019-03-07] MEDS: ENOXAPARIN 40 MG/0.4 ML SYRINGE. SQ SCH (12:23)
[2019-03-07] MEDS ORDERED: ASPI300S RC (13:00)
[2019-03-07] MEDS ORDERED: INSU100I11 SQ (13:00)
[2019-03-07] MEDS ORDERED: INSU100V13 SQ (13:00)
[2019-03-07] MEDS ORDERED: CARV3.1210 PO (13:00)
[2019-03-07] MEDS ORDERED: PENI250T85 PO (13:00)
[2019-03-07] MEDS ORDERED: ATOR40TA59 PO (13:00)
--- NOTE | 2019-03-07 13:31 | PDOC ---
PROGRESS NOTES Assessment Subacute left thalamocapsule junction infarct. Right side weakness. Slurred speech. Metabolic encephalopathy. Confusion. Lethargy. Left ICA 50-69% stenosis. HTN. HLD. DM. CAD s/p CABG. CHF, EF 45-50% Vit B12 deficiency. Dementia. 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 On psychiatric dose of a valproic acid Plan Continue aspirin and statin. On dysphagia II diet Okay for discharge to [facility] Objective Vital Signs Date Time Temp Pulse Resp B/P (MAP) Pulse Ox O2 Delivery O2 Flow Rate FiO2 03/07/19 11:44 98.1 80 18 158/80 (106) 94 Room Air 98.1 Intake and Output 03/07/19 07:00 Intake Total 900 ml Balance 900 ml Intake Oral 420 ml IV Total 480 ml # Voids 3 # Bowel Movements 1 PHYSICAL EXAM Alert. Oriented to person, does not know name of hospital, knows he is in one, does not know the date. PERRL. EOMI. CN: no focal findings. Muscle tone: normal. Muscle strength: 4/5, weaker on the right DTR: 1+ Plantar reflex: left AKA, right great toe amputation, can't check Gait: not examined in bed. Sensory exam: no abnormal findings. No cerebellar signs elicited. Review of Relevant I have reviewed the following items chris (where applicable) has been applied. Labs Laboratory Tests Test 03/05/19 17:07 03/05/19 21:38 03/06/19 07:44 03/06/19 11:28 Glucose (Fingerstick) 190 mg/dL (70-99) 253 mg/dL (70-99) 175 mg/dL (70-99) 285 mg/dL (70-99) Test 03/06/19 16:27 03/06/19 17:35 03/06/19 20:54 03/07/19 07:19 Glucose (Fingerstick) 167 mg/dL (70-99) 228 mg/dL (70-99) 188 mg/dL (70-99) Potassium Level 4.8 mmol/L (3.5-5.1) Calcium Level 9.4 mg/dL (8.5-10.1) Magnesium Level 2.1 mg/dL (1.8-2.4) Ferritin 280 ng/mL (26-388) Test 03/07/19 10:59 03/07/19 11:25 Glucose (Fingerstick) 208 mg/dL (70-99) Iron Level 57 ug/dL (65-175) Total Iron Binding Capacity 232 ug/dL (250-450) Iron Saturation 25 % (15-34) Laboratory Tests Test 03/06/19 16:27 03/06/19 17:35 03/06/19 20:54 03/07/19 07:19 Glucose (Fingerstick) 167 mg/dL (70-99) 228 mg/dL (70-99) 188 mg/dL (70-99) Potassium Level 4.8 mmol/L (3.5-5.1) Calcium Level 9.4 mg/dL (8.5-10.1) Magnesium Level 2.1 mg/dL (1.8-2.4) Ferritin 280 ng/mL (26-388) Test 03/07/19 10:59 03/07/19 11:25 Glucose (Fingerstick) 208 mg/dL (70-99) Iron Level 57 ug/dL (65-175) Total Iron Binding Capacity 232 ug/dL (250-450) Iron Saturation 25 % (15-34) Microbiology 02/28/19 Urine Culture - Final, Complete 02/28/19 Urine Culture Result 1 (ABDI) - Final, Complete Medications Current Medications Aspirin (Aspirin Rectal Supp) 300 mg 1X ONCE WV Last administered on 02/28/19at 01:30; Start 02/28/19 at 01:30; Stop 02/28/19 at 01:31; Status DC Ondansetron HCl (Zofran) 4 mg PRN Q8HRS PRN IV NAUSEA/VOMITING; Start 02/28/19 at 01:15; Stop 03/01/19 at 01:14; Status DC Insulin Human Lispro (HumaLOG) 0-5 UNITS TIDWMEALS SQ ; Start 02/28/19 at 08:00; Stop 02/28/19 at 09:28; Status DC Dextrose (Dextrose 50%-Water Syringe) 12.5 gm PRN Q15MIN PRN IV SEE COMMENTS; Start 02/28/19 at 01:15; Stop 02/28/19 at 05:38; Status DC Dextrose (Dextrose 50%-Water Syringe) 12.5 gm PRN Q15MIN PRN IV SEE COMMENTS; Start 02/28/19 at 05:30; Stop 02/28/19 at 09:27; Status DC Amino Acids/ Glycerin/ Electrolytes 1,000 ml @ 40 mls/hr Q24H IV Last administered on 03/06/19 09:39; Start 02/28/19 at 10:00 Aspirin (Aspirin Rectal Supp) 300 mg DAILY RC Last administered on 03/03/19 09:35; Start 03/01/19 at 09:00; Stop 03/04/19 at 11:24; Status DC Divalproex Sodium (Depakote Er) 250 mg QHS PO Last administered on 03/06/19 20:28; Start 02/28/19 at 21:00 Insulin Human Lispro (HumaLOG) 0-9 UNITS TIDWMEALS SQ Last administered on 03/07/19 12:58; Start 02/28/19 at 12:00 Dextrose (Dextrose 50%-Water Syringe) 12.5 gm PRN Q15MIN PRN IV SEE COMMENTS; Start 02/28/19 at 09:30 Insulin Glargine (Lantus Syringe) 10 unit QHS SQ Last administered on 03/03/19 21:00; Start 02/28/19 at 21:00; Stop 03/04/19 at 13:37; Status DC Ceftriaxone Sodium (Rocephin) 1 gm Q24H IVP Last administered on 03/04/19 12:38; Start 02/28/19 at 10:00; Stop 03/04/19 at 14:00; Status DC Cyanocobalamin (Vitamin B-12) 1,000 mcg 1X ONCE IM Last administered on 02/28/19 13:12; Start 02/28/19 at 13:00; Stop 02/28/19 at 13:01; Status DC Atorvastatin Calcium (Lipitor) 40 mg QHS PO Last administered on 03/06/19 20:28; Start 03/01/19 at 21:00 Lidocaine (Lidoderm) 1 patch DAILY TD Last administered on 03/05/19 08:24; Start 03/01/19 at 13:00 Miscellaneous (Lidoderm Patch Removal) 1 ea QHS MC Last administered on 03/06/19 20:29; Start 03/01/19 at 21:00 Labetalol HCl (Normodyne Iv Push) 10 mg PRN Q2HR PRN IVP HYPERTENSION; Start 03/01/19 at 14:45 Influenza Virus Vaccine Quadrival (Afluria Quad 2019-20 (3yr Up) Syringe) 0.5 ml ONCE ONCE VAX IM Last administered on 03/04/19at 18:06; Start 03/02/19 at 13:00; Stop 03/02/19 at 13:01; Status DC Iohexol (Omnipaque 350 Mg/ml) 75 ml 1X ONCE IV Last administered on 03/02/19at 15:02; Start 03/02/19 at 15:00; Stop 03/02/19 at 15:01; Status DC Info (CONTRAST GIVEN -- Rx MONITORING) 1 each PRN DAILY PRN MC SEE COMMENTS; Start 03/02/19 at 15:00; Stop 03/04/19 at 14:59; Status DC Cyanocobalamin (Vitamin B-12) 1,000 mcg DAILY ONCE IM Last administered on 03/03/19at 09:35; Start 03/03/19 at 09:00; Stop 03/03/19 at 09:01; Status DC Barium Sulfate (Varibar Thin Liquid Apple) 148 gm 1X ONCE PO Last administered on 03/03/19 14:00; Start 03/03/19 at 13:15; Stop 03/03/19 at 13:17; Status DC Aspirin (Hi Aspirin) 325 mg DAILYWBKFT PO Last administered on 03/07/19at 09:03; Start 03/05/19 at 08:00 Enoxaparin Sodium (Lovenox 40mg Syringe) 40 mg Q24H SQ Last administered on at 12:23; Start 03/04/19 at 11:30 Lactobacillus Rhamnosus (Culturelle) 1 cap BID PO Last administered on 03/07/19 09:03; Start 03/04/19 at 21:00 Insulin Glargine (Lantus Syringe) 10 unit QHS SQ Last administered on 03/06/19at 21:31; Start 03/04/19 at 21:00 Cefdinir (Omnicef) 300 mg BID PO Last administered on 03/07/19 09:04; Start 03/04/19 at 21:00 Ondansetron HCl (Zofran) 4 mg PRN Q6HRS PRN IVP NAUSEA/VOMITING; Start 03/06/19 at 20:15 Acetaminophen (Tylenol) 500 mg PRN Q6HRS PRN PO MILD PAIN / TEMP; Start 03/06/19 at 20:15 Temazepam (Restoril) 7.5 mg PRN QHS PRN PO INSOMNIA; Start 03/06/19 at 20:15 Carvedilol (Coreg) 3.125 mg BIDWMEALS PO Last administered on 03/07/19at 09:04; Start 03/06/19 at 22:00 Active Scripts Active Penicillin V Potassium 250 Mg Tablet 1 Tab PO TID 7 Days Humalog (Insulin Lispro) 100 Unit/1 Ml Insuln.pen 0 Units SQ TIDWMEALS 30 Days BG 151-200 - 4u BG 201-250 - 5u BG 251-300 - 7u BG 301-350 - 9u >350 call Carvedilol (Carvedilol) 3.125 Mg Tablet 3.125 Mg PO BIDWMEALS 30 Days Atorvastatin Calcium 40 Mg Tablet 40 Mg PO QHS 30 Days Levemir (Insulin Detemir) 100 Unit/1 Ml Vial 25 Unit SQ QHS 30 Days Aspirin 300 Mg Supp.rect 300 Mg RC PRN DAILY 30 Days Reported Tylenol (Acetaminophen) 325 Mg Tablet 2 Tab PO PRN Q8HRS PRN Omeprazole 20 Mg Capsule.dr 1 Cap PO DAILY Mucinex (Guaifenesin) 600 Mg Tablet.er 1 Tab PO PRN BID PRN Imodium A-D (Loperamide HCl) 2 Mg Capsule 2 Mg PO PRN Q6HRS PRN Mirtazapine 15 Mg Tablet 7.5 Mg PO QHS Glucose Gel (Dextrose) 38 Gm Gel..gram. 38 Gm PO PRN Q15MIN PRN Glucagon Emergency Kit (Glucagon,Human Recombinant) 1 Mg Kit 1 Mg IM PRN Depakote Er (Divalproex Sodium) 250 Mg Tab.er.24h 1 Tab PO QHS Aspirin 325 Mg Tablet 1 Tab PO DAILY Zofran (Ondansetron Hcl) 4 Mg Tablet 1 Tab PO Q8HRS PRN Lisinopril 20 Mg Tablet 1 Tab PO BID Vitals/I & O Vital Sign - Last 24 Hours 03/06/19 03/06/19 03/06/19 03/06/19 15:07 19:40 20:20 21:25 Temp 99.1 97.6 99.1 97.6 Pulse 87 78 78 Resp 17 20 B/P (MAP) 144/56 (85) 124/79 (94) 124/79 Pulse Ox 95 95 O2 Delivery Room Air Room Air Room Air 03/06/19 03/07/19 03/07/19 03/07/19 23:00 03:47 07:00 08:00 Temp 98.6 97.6 97.9 98.6 97.6 97.9 Pulse 64 64 65 Resp 20 20 18 B/P (MAP) 145/57 (86) 152/47 (82) 142/68 (92) Pulse Ox 94 95 96 O2 Delivery Room Air Room Air Room Air Room Air 03/07/19 03/07/19 03/07/19 08:11 09:04 11:44 Temp 97.9 98.1 97.9 98.1 Pulse 88 88 80 Resp 20 18 B/P (MAP) 142/68 (92) 142/68 158/80 (106) Pulse Ox 96 94 O2 Delivery Room Air Room Air Intake and Output 03/06/19 03/06/19 03/07/19 15:00 23:00 07:00 Intake Total 220 ml 200 ml 480 ml Balance 220 ml 200 ml 480 ml SHERRY ALCANTARA MD Mar 07, 2019 13:31
--- NOTE | 2019-03-07 13:45 | SNU/HH DC ---
DISCHARGE ORDERS DISCHARGE INFORMATION: DISCHARGE DATE: Mar 07, 2019 CONDITION ON DISCHARGE: Stable CODE STATUS: Code Status: Full ALF: SNF STAY <30 DAYS: Yes POST DISCHARGE ORDERS: ACTIVITY ORDERS: Activity as tolerated WEIGHT BEARING STATUS: No restrictions DIET AFTER DISCHARGE: DYSPHAGIA II CHECKS AFTER DISCHARGE: CHECKS AFTER DISCHARGE: Check blood press - daily TREATMENT/EQUIPMENT ORDERS: Physical Therapy For: Evalulation/Treatment Occupational Therapy For: Evaluation/Treatment Speech Language Pathology For: Evaluation/Treatment DISCHARGE MEDICATIONS: Home Meds Active Scripts Penicillin V Potassium (PENICILLIN V POTASSIUM) 250 Mg Tablet, 1 TAB PO TID for UTI for 7 Days, #21 TAB Prov:LUCILA PULLIAM MD 03/07/19 Insulin Lispro (HUMALOG) 100 Unit/1 Ml Insuln.pen, 0 UNITS SQ TIDWMEALS for DM2 for 30 Days, #1 EACH BG 151-200 - 4u BG 201-250 - 5u BG 251-300 - 7u BG 301-350 - 9u >350 call Prov:LUCILA PULLIAM MD 03/07/19 Carvedilol (CARVEDILOL ) 3.125 Mg Tablet, 3.125 MG PO BIDWMEALS for HTN for 30 Days, #60 TAB 5 Refills Prov:LUCILA PULLIAM MD 03/07/19 Atorvastatin Calcium (ATORVASTATIN CALCIUM) 40 Mg Tablet, 40 MG PO QHS for HLD/CVA for 30 Days, #30 TAB 5 Refills Prov:LUCILA PULLIAM MD 03/07/19 Insulin Detemir (LEVEMIR) 100 Unit/1 Ml Vial, 25 UNIT SQ QHS for Diabetes for 30 Days, #1 VIAL Prov:LUCILA PULLIAM MD 03/07/19 Aspirin (ASPIRIN) 300 Mg Supp.rect, 300 MG RC PRN DAILY for CVA for 30 Days, #30 SUPP.RECT Prov:LUCILA PULLIAM MD 03/07/19 Reported Medications Acetaminophen (TYLENOL) 325 Mg Tablet, 2 TAB PO PRN Q8HRS PRN for PAIN, #30 TAB 02/28/19 Omeprazole (OMEPRAZOLE) 20 Mg Capsule.dr, 1 CAP PO DAILY for gerd, #30 CAP 5 Refills 02/28/19 Guaifenesin (MUCINEX) 600 Mg Tablet.er, 1 TAB PO PRN BID PRN for COUGH, #14 TAB 02/28/19 Loperamide HCl (Imodium A-D) 2 Mg Capsule, 2 MG PO PRN Q6HRS PRN for DIARRHEA, CAP 02/28/19 Mirtazapine (MIRTAZAPINE) 15 Mg Tablet, 7.5 MG PO QHS for depression, #30 TAB 3 Refills 02/28/19 Dextrose (GLUCOSE GEL) 38 Gm Gel..gram., 38 GM PO PRN Q15MIN PRN for LOW BLOOD SUGAR, EACH 02/28/19 Glucagon,Human Recombinant (GLUCAGON EMERGENCY KIT) 1 Mg Kit, 1 MG IM PRN for hypoglycemia, #2 KIT 5 Refills 02/28/19 Divalproex Sodium (DEPAKOTE ER) 250 Mg Tab.er.24h, 1 TAB PO QHS for mood, #30 TAB 2 Refills 02/28/19 Aspirin (ASPIRIN) 325 Mg Tablet, 1 TAB PO DAILY for antiplatelet, #30 TAB 5 Refills 02/28/19 Ondansetron Hcl (ZOFRAN) 4 Mg Tablet, 1 TAB PO Q8HRS PRN for NAUSEA, #30 TAB 08/12/16 Lisinopril (LISINOPRIL) 20 Mg Tablet, 1 TAB PO BID for blood pressure, #30 TAB 5 Refills 08/12/16 Discontinued Reported Medications Hydrocodone Bit/Acetaminophen (HYDROCODONE-APAP 5-325 ) 1 Each Tablet, 1 TAB PO Q4HRS PRN for PAIN, TAB 0 Refills 07/29/16 Pantoprazole Sodium (PANTOPRAZOLE SODIUM ) 40 Mg Tablet., 1 TAB PO BID, #30 TAB 3 Refills 08/12/16 LUCILA PULLIAM MD Mar 07, 2019 13:45
[2019-03-07 15:41] VITALS: BP 138/72
--- NOTE | 2019-03-07 16:15 | NUR ---
KAMAR following pt. Orders faxed to [facility] and discussed regarding pt's insurance status. Facility reported pt only has Medicaid at this time and they are following up on Medicare eligibility/application. Pt will transport via facility arranged w/c van at 1600. Discussed with RN.
--- NOTE | 2019-03-07 16:17 | NUR ---
Pt was escorted out via transportation in wheelchair to [facility]. Pt's clothes and belongings gathered, and loaded up in wheelchair. Discontinued IV, and took off monitor. Gave report to [place] at facility.
--- NOTE | 2019-03-07 21:33 | PDOC3 ---
Discharge Summary Visit Information Date of Admission: Feb 28, 2019 Date of Discharge: Mar 07, 2019 Admitting Diagnosis: Right sided weakness Final Diagnosis Acute CVA Brief Hospital Course Allergies Allergies Coded Allergies Type Severity Reaction Last Updated Verified No Known Drug Allergies 07/29/16 No Vital Signs Vital Signs Date Time Temp Pulse Resp B/P (MAP) Pulse Ox O2 Delivery O2 Flow Rate FiO2 03/07/19 15:41 97.8 88 18 138/72 (94) 96 Room Air 97.8 Lab Results Laboratory Tests Test 03/05/19 21:38 03/06/19 07:44 03/06/19 11:28 03/06/19 16:27 Glucose (Fingerstick) 253 mg/dL (70-99) 175 mg/dL (70-99) 285 mg/dL (70-99) 167 mg/dL (70-99) Test 03/06/19 17:35 03/06/19 20:54 03/07/19 07:19 03/07/19 10:59 Potassium Level 4.8 mmol/L (3.5-5.1) Calcium Level 9.4 mg/dL (8.5-10.1) Magnesium Level 2.1 mg/dL (1.8-2.4) Ferritin 280 ng/mL (26-388) Glucose (Fingerstick) 228 mg/dL (70-99) 188 mg/dL (70-99) 208 mg/dL (70-99) Test 03/07/19 11:25 Iron Level 57 ug/dL (65-175) Total Iron Binding Capacity 232 ug/dL (250-450) Iron Saturation 25 % (15-34) Laboratory Tests Test 03/07/19 07:19 03/07/19 10:59 03/07/19 11:25 Glucose (Fingerstick) 188 mg/dL (70-99) 208 mg/dL (70-99) Iron Level 57 ug/dL (65-175) Total Iron Binding Capacity 232 ug/dL (250-450) Iron Saturation 25 % (15-34) Brief Hospital Course Mr Van is a 68-year-old male w/ PMHx CAD s/p CABG, HTN, HLD, DM2, s/p L BKA, prior CVA, dementia who is admitted with new right sided weakness, aphasia, and confusion. Has been found with new CVA. Seen by neurology in consultation as well as palliative care, vascular surgery, cardiology and gastroenterology. He was found with mild left sided internal carotid artery disease, not severe enough to merit vascular surgery. He was also found with GBS UTI, treated. He is seen eating mashed potatoes today well with his left hand. He is stating he is ready to leave. Denies any CP or SOB Assessment/Plan Acute CVA, acute on chronic - infarct at the left thalamocapsular junction. Additional few foci of high intensity signal DWI without corresponding ADC signal, nonspecific Old infarct in the left medial frontal lobe and right superior cerebellar hemisphere UTI - GBS Acute metabolic encephalopathy Dm 1 with Hyperglycemia, labile RODRIGO - 2/2 Vasomotor nephropathy Diabetes with severe chronic atherosclerosis, multilevel. Cardiomyopathy The Ejection Fraction is estimated at 30%. 2017 Chronic systolic HF PAD HX splenic infarcts, old hx elevated ferritin 2017 lab There is moderate (50-69 percent) stenosis involving the left internal carotid artery with elevated end-diastolic velocity in the distal internal carotid artery. 03/04 speech better, glucose suboptimal control 03-06 snf bed pending, ppn at 40cc./hr Now that he is eating well, rehabilitating, will d/c back to SNF Greater than 30 minutes spent on d/c Discharge Information Condition at Discharge: Improved Follow Up: Weeks (2) Disposition/Orders: D/C to Another Facility Scheduled Aspirin (Aspirin) 325 Mg Tablet, 1 TAB PO DAILY for antiplatelet, #30 Ref 5 (Reported) Entered as Reported by: TRISTAN ALEXANDER on 02/28/19335 Last Action: HELD on 02/28/19923 by SRAVAN ROMANO Aspirin (Aspirin) 300 Mg Supp.rect, 300 MG RC PRN DAILY for CVA for 30 Days, #30 Prescribed by: LUCILA PULLIAM MD on 03/07/19 1300 Atorvastatin Calcium (Atorvastatin Calcium) 40 Mg Tablet, 40 MG PO QHS for HLD/CVA for 30 Days, #30 Ref 5 Prescribed by: LUCILA PULLIAM MD on 03/07/19 1300 Carvedilol (Carvedilol ) 3.125 Mg Tablet, 3.125 MG PO BIDWMEALS for HTN for 30 Days, #60 Ref 5 Prescribed by: LUCILA PULLIAM MD on 03/07/19 1300 Divalproex Sodium (Depakote Er) 250 Mg Tab.er.24h, 1 TAB PO QHS for mood, #30 Ref 2 (Reported) Entered as Reported by: TRISTAN ALEXANDER on 02/28/19335 Last Action: Continued on 02/28/19923 by SRAVAN ROMANO Glucagon,Human Recombinant (Glucagon Emergency Kit) 1 Mg Kit, 1 MG IM PRN for hypoglycemia, #2 Ref 5 (Reported) Entered as Reported by: TRISTAN ALEXANDER on 02/28/19335 Last Action: HELD on 02/28/19923 by SRAVAN ROMANO Insulin Detemir (Levemir) 100 Unit/1 Ml Vial, 25 UNIT SQ QHS for Diabetes for 30 Days, #1 Prescribed by: LUCILA PULLIAM MD on 03/07/19 1300 Insulin Lispro (Humalog) 100 Unit/1 Ml Insuln.pen, 0 UNITS SQ TIDWMEALS for DM2 for 30 Days, #1 BG 151-200 - 4u BG 201-250 - 5u BG 251-300 - 7u BG 301-350 - 9u >350 call MD Prescribed by: LUCILA PULLIAM MD on 03/07/19 1300 Lisinopril (Lisinopril) 20 Mg Tablet, 1 TAB PO BID for blood pressure, #30 Ref 5 (Reported) Entered as Reported by: CLAIRE LOPEZ on 08/12/16 1520 Last Action: HELD on 02/28/19923 by SRAVAN ROMANO Mirtazapine (Mirtazapine) 15 Mg Tablet, 7.5 MG PO QHS for depression, #30 Ref 3 (Reported) Entered as Reported by: TRISTAN ALEXANDER on 02/28/19335 Last Action: HELD on 02/28/19923 by SRAVAN ROMANO Omeprazole (Omeprazole) 20 Mg Capsule.dr, 1 CAP PO DAILY for gerd, #30 Ref 5 (Reported) Entered as Reported by: TRISTAN ALEXANDER on 02/28/19335 Last Action: HELD on 02/28/19923 by SRAVAN ROMANO Penicillin V Potassium (Penicillin V Potassium) 250 Mg Tablet, 1 TAB PO TID for UTI for 7 Days, #21 Prescribed by: LUCILA PULLIAM MD on 03/07/19 1300 Scheduled PRN Acetaminophen (Tylenol) 325 Mg Tablet, 2 TAB PO PRN Q8HRS PRN for PAIN, #30 (Reported) Entered as Reported by: TRISTAN ALEXANDER on 02/28/19335 Last Action: HELD on 02/28/19923 by SRAVAN ROMANO Dextrose (Glucose Gel) 38 Gm Gel..gram., 38 GM PO PRN Q15MIN PRN for LOW BLOOD SUGAR, (Reported) Entered as Reported by: TRISTAN ALEXANDER on 02/28/19335 Last Action: HELD on 02/28/19923 by SRAVAN ROMANO Guaifenesin (Mucinex) 600 Mg Tablet.er, 1 TAB PO PRN BID PRN for COUGH, #14 (Reported) Entered as Reported by: TRISTAN ALEXANDER on 02/28/19335 Last Action: HELD on 02/28/19923 by SRAVAN ROMANO Loperamide HCl (Imodium A-D) 2 Mg Capsule, 2 MG PO PRN Q6HRS PRN for DIARRHEA, (Reported) Entered as Reported by: TRISTAN ALEXANDER on 02/28/19335 Last Action: HELD on 02/28/19923 by SRAVAN ROMANO Ondansetron Hcl (Zofran) 4 Mg Tablet, 1 TAB PO Q8HRS PRN for NAUSEA, #30 (Reported) Entered as Reported by: CLAIRE LOPEZ on 08/12/161522 Last Action: HELD on 02/28/19923 by SRAVAN ROMANO Discontinued Medications Hydrocodone Bit/Acetaminophen (Hydrocodone-Apap 5-325 ) 1 Each Tablet, 1 TAB PO Q4HRS PRN for PAIN, Ref 0 (Reported) Entered as Reported by: KRAIG RANDALL on 07/29/16332 Last Action: HELD on 02/28/19923 by SRAVAN ROMANO Pantoprazole Sodium (Pantoprazole Sodium ) 40 Mg Tablet.dr, 1 TAB PO BID, #30 Ref 3 (Reported) Entered as Reported by: CLAIRE LOPEZ on 08/12/161521 Last Action: Discontinued on 02/28/19335 by LUCILA MORRIS MD Mar 07, 2019 21:33
== END 2019-03-07 16:05 | disposition home or self-care (01) | DRG 64 ==
LOC: ER 23:45 → 2 SOUTH 02-28 01:10 → 6 SOUTH 02-28 10:30
PROVIDERS: ADMIT Internal Medicine; ATTEND Internal Medicine
DX: I63.9 Cerebral infarction, unspecified (principal); G93.41 Metabolic encephalopathy; N17.0 Acute kidney failure with tubular necrosis; E46 Unspecified protein-calorie malnutrition; I13.0 Hypertensive heart and chronic kidney disease with heart failure and stage 1 through stage 4 chronic kidney disease, or unspecified chronic kidney disease; I50.22 Chronic systolic (congestive) heart failure; N39.0 Urinary tract infection, site not specified; E10.22 Type 1 diabetes mellitus with diabetic chronic kidney disease; E10.51 Type 1 diabetes mellitus with diabetic peripheral angiopathy without gangrene; E10.65 Type 1 diabetes mellitus with hyperglycemia; Z68.28 Body mass index [BMI] 28.0-28.9, adult; E53.8 Deficiency of other specified B group vitamins; E78.00 Pure hypercholesterolemia, unspecified; E78.5 Hyperlipidemia, unspecified; E86.0 Dehydration; F03.90 Unspecified dementia, unspecified severity, without behavioral disturbance, psychotic disturbance, mood disturbance, and anxiety; I25.10 Atherosclerotic heart disease of native coronary artery without angina pectoris; I25.5 Ischemic cardiomyopathy; K76.0 Fatty (change of) liver, not elsewhere classified; M19.90 Unspecified osteoarthritis, unspecified site; Z51.5 Encounter for palliative care; B95.1 Streptococcus, group B, as the cause of diseases classified elsewhere; N18.3 Chronic kidney disease, stage 3 (moderate); Z79.82 Long term (current) use of aspirin; Z82.49 Family history of ischemic heart disease and other diseases of the circulatory system; Z83.3 Family history of diabetes mellitus; Z89.512 Acquired absence of left leg below knee; Z89.612 Acquired absence of left leg above knee; Z95.1 Presence of aortocoronary bypass graft; Z59.0 Homelessness
CPT/HCPCS: 36415; 70450; 70496; 70498; 70551; 71045; 74230; 76700; 80053; 80061; 80164; 81001; 82140; 82310; 82553; 82607; 82728; 82962; 83036; 83540; 83550; 83605; 83735; 84132; 84443; 84484; 85025; 85610; 85730; 87086; 90471; 90686; 93005; 93306; 93880; 95816; J0696; J1650; J1815; J3420; Q9967; 92526; 92610; 92611; 97110; 97530; 97535; 99285-25; G0378